=== PATIENT | male | born 1940 | race Caucasian/White ===

== ENCOUNTER 2016-07-18 21:40 | Inpatient (IN) | payer MEDICAID, MEDICARE ==
[2016-07-18] MEDS ORDERED: Sodium Chloride 0.9% 1,000 ML IV ONE ×2 (22:00→23:13)
--- NOTE | 2016-07-18 22:06 | ED Physician Chart ---
Chief Complaint/HPI - Patient Information Date Seen:: 07/18/16 Time Seen:: 21:50 Chief Complaint:: fever History of Present Illness:: patient has had fever up to 102 and cough for two days. Sputum is white. No chest pain, vomiting or diarrhea. Allergies:: Allergies Allergy/AdvReac Type Severity Reaction Status Date / Time levofloxacin [From Levaquin] Allergy Verified 06/19/16 06:29 Historian:: Patient, EMS Review:: Nurse's Note Reviewed, Transfer documents Reviewed Review of Systems - Review of Systems General/Constitutional: Fever, Weakness Skin: No skin lesions Head: No headache Eyes: No loss of vision ENT: No earache Neck: No neck pain Cardio Vascular: No chest pain Pulmonary: SOB GI: No nausea, No vomiting, No diarrhea G/U: No dysuria Musculoskeletal: No bone or joint pain Endocrine: No polyuria Psychiatric: Prior psych history Hematopoietic: No bruising Allergic/Immuno: No urticaria Neurological: No syncope Past Medical History - Past Medical History Past Medical History: HTN, PUD/GERD, Dementia, Other (hypercholesterolemia; metastatic melanoma; prostate ca) Family History: None Social History: Non Smoker, No Alcohol Surgical History: other (trach; osteomyelitis left leg; CABGS) Psychiatricy History: Other (anxiety; psychosis) Family Medical History - Family Member Father History Unknown: Yes Ethnicity: Non- Living Status: Hx Family Cancer: Yes (father) Hx Family Coronary Artery Disease: No Hx Family Congestive Heart Failure: No Hx Family Hypertension: No Hx Family Stroke: No Hx Family Diabetes: No Hx Family Seizures: No Hx Family Dementia: No Hx Family AIDS: No Hx Family HIV: No Hx Family COPD: No Hx Family Hepatitis: No Hx Family Psychiatric Problems: No Hx Family Tuberculosis: No Physical Exam - Physical Examination General/Constitutional: Well-developed, well-nourished, Alert, No distress Head: Atraumatic Eyes: Lids, conjuctiva normal, PERRL Skin: Nl inspection, No rash, No skin lesions, No ecchymosis ENMT: External ears, nose nl, Lips, teeth, gums nl Neck: No nuchal rigidity Respiratory: Nl effort/Exclusion Other Respiratory comments:: diffuse wheezing Cardio Vascular: RRR Other Cardio Vascular comments:: 3/6 scratchy holosystolic murmur GI: No tenderness/rebounding/guarding, No organomegaly : No CVA tenderness Other Extremities comments:: right lower leg swollen with 2/6 pre-tibial pitting edema Neuro/Psych: No focal deficits Labs/Radiology/EKG Results - Lab Results Results: Laboratory Results - last 24 hr 07/18/16 07/18/16 07/18/16 22:00 22:00 22:00 WBC 13.4 H RBC 4.24 Hgb 12.6 Hct 36.9 L MCV 86.9 MCH 29.7 MCHC Differential 34.2 RDW 14.1 Plt Count 301 D MPV 7.0 Band Neutrophils % 2 Neutrophils (Manual) 80 Lymphocytes 9 L Monocytes 6 Eosinophils 3 Platelet Estimate ADEQUATE D-Dimer 1110 H Sodium 137 Potassium 4.2 Chloride 105 Carbon Dioxide 26.2 Anion Gap 10.0 BUN 13 Creatinine 0.8 Est GFR ( Amer) TNP Est GFR (Non-Af Amer) TNP BUN/Creatinine Ratio 16.3 Glucose 99 Calcium 9.3 - Radiology Results Results: s/p sterniotomy; large hiatal hernia - EKG Interpretations Rhythm: NSR [place]: borderline LAD Rate: 96 Comments:: Q waves III, avF; old septal TN ED Septic Shock - . Is Septic Shock (SBP<90, OR Lactate>4 mmol\L) present?: No Reassessment (Disposition) - Reassessment Reassessment Condition:: Unchanged - Diagnosis Diagnosis:: acute febrile illness; leukocytosis; bronchitis - Patient Disposition Admitted to:: Med/Surg Spoke to:: Lobo Quiroz Admitting Medical Physician:: Lobo Quiroz Condition at Disposition:: Stable, Improved
[2016-07-18 22:19] LABS: HEMATOCRIT 36.9 % (39.0-49.0); HEMOGLOBIN 12.6 gm/dL (12.6-17.4); MEAN CELL VOLUME 86.9 fl (80-99); MEAN CORPUSCULAR HEMOGLOBIN 29.7 pg (27.0-31.0); MEAN CORPUSCULAR HGB CONC 34.2 pg (28.0-36.0); RED BLOOD COUNT 4.24 Mil/cmm (3.80-5.80); RED CELL DISTRIBUTION WIDTH 14.1 % (11.5-20.0); WHITE BLOOD COUNT 13.4 Th/cmm (4.8-10.8)
[2016-07-18 22:22] LABS: PLATELET COUNT 301 Th/cmm (150-400)
[2016-07-18 22:31] LABS: BUN - UREA NITROGEN 13 mg/dL (7-25); BUN/CREATININE RATIO 16.3; CALCIUM SERUM 9.3 mg/dL (8.6-10.3); CARBON DIOXIDE 26.2 mEq/L (21.0-31.0); CHLORIDE 105 mEq/L (98-107); CREATININE - SERUM 0.8 mg/dL (0.7-1.3); GLUCOSE 99 mg/dL (70-105); POTASSIUM SERUM 4.2 mEq/L (3.5-5.1); SODIUM SERUM 137 mEq/L (136-145)
[2016-07-18 22:44] LABS: BAND NEUTROPHILE 2 % (0-10); EOSINOPHIL 3 % (0-5); NEUTROPHILS 80 % (40-80); PLATELET ESTIMATE ADEQUATE (NORMAL); TOTAL CELLS COUNTED 100
[2016-07-18] MEDS ORDERED: Albuterol/Ipratropium Neb 3 ML AERS HHN ONE (22:58)
[2016-07-18] MEDS ORDERED: Albuterol Nebulizer 2.5mg/3mL HHN ONE (23:00)
[2016-07-18] MEDS ORDERED: Ipratropium Neb 0.5 mg/2.5 mL UD HHN ONE (23:01)
[2016-07-18] MEDS ORDERED: cefTRIAXone 1 GM in Sodium Chloride 0.9% 50 ML IV ONE (23:14)
[2016-07-18 23:17] LABS: URINE BILIRUBIN NEGATIVE (NEGATIVE); URINE BLOOD TRACE (NEGATIVE); URINE COLOR YELLOW; URINE GLUCOSE (UA) NEGATIVE (NEGATIVE); URINE KETONE NEGATIVE (NEGATIVE); URINE PH 8.5; URINE PROTEIN 30 mg/dL (NEGATIVE); URINE UROBILINOGEN 0.2 E.U./dL (0.2 - 1.0)
[2016-07-18 23:18] LABS: URINE BACTERIA MANY /hpf (NONE SEEN); URINE EPITHELIAL CELLS OCCASIONAL /lpf (FEW); URINE RBC 0-2 /hpf (0-5); URINE WBC 50-100 /hpf (0-5)
[2016-07-18] MEDS ORDERED: ARFORMOTEROL TARTRATE 15 MCG IH SCH (23:45)
[2016-07-18] MEDS ORDERED: Magnesium Hydroxide (MOM) 30 mL UDC PO PRN (23:54)
[2016-07-18] MEDS ORDERED: Fleet Enema 135 mL RC PRN (23:54)
[2016-07-18] MEDS ORDERED: Maalox 30 mL Cup PO PRN (23:56)
[2016-07-19] MEDS: D5-0.45NS 1,000 ML IV SCH ×2 (01:26→21:06)
[2016-07-19] MEDS: methylPREDNISolone SS 40 mg Vial IVP SCH ×3 (05:23→21:09)
[2016-07-19] MEDS: Albuterol Nebulizer 2.5mg/3mL HHN SCH ×4 (08:45→19:32)
[2016-07-19] MEDS: Ipratropium Neb 0.5 mg/2.5 mL UD HHN SCH ×4 (08:45→19:32)
[2016-07-19] MEDS: Budesonide 0.5 Mg/2 mL Ud HHN SCH ×2 (08:46→19:32)
--- NOTE | 2016-07-19 09:36 | Diagnostic Imaging Report ---
CHEST X-RAY: AP view INDICATION: Fever COMPARISON: 06/29/2016 FINDINGS: There is evidence of prior median sternotomy. There is elevation of the left hemidiaphragm which limits evaluation of the left lung base. Chronic lung changes are noted. No focal consolidation within the visualized portions of the lungs. Gas-filled loops of bowel are seen along the upper abdomen. Borderline cardiomegaly is noted. Degenerative changes of the spine are noted. IMPRESSION: Elevation of the left hemidiaphragm limiting evaluation of the left lung base. Otherwise no focal consolidation identified. If indicated dedicated PA and lateral views may be obtained for further assessment. Postsurgical changes Borderline cardiomegaly.
[2016-07-19] MEDS: Aspirin 81mg Chewable Tab PO SCH (09:54)
[2016-07-19] MEDS: Pantoprazole 40 mg EC Tab PO SCH ×2 (09:54→17:09)
--- NOTE | 2016-07-19 12:47 | Diagnostic Imaging Report ---
Bilateral lower extremity DVT study HISTORY: Pain COMPARISON: None Technique: Longitudinal and transverse sonographic images of the bilateral lower extremity veins were obtained with doppler analysis. FINDINGS: There is normal compressibility, augmentation and phasicity of the bilateral common femoral, superficial femoral, popliteal, and posterior tibial veins. No thrombus is visualized. IMPRESSION: No evidence of thrombus within the bilateral lower extremity veins.
--- NOTE | 2016-07-19 12:54 | Internal Medicine Prog Note ---
Internal Medicine Subjective - Subjective Service Date: 07/19/16 ([id number]) Internal Medicine Objective - Results Result Diagrams: 07/18/16 22:00 07/18/16 22:00 Recent Labs: Laboratory Last Values WBC 13.4 Th/cmm (4.8-10.8) H 07/18/16 22:00 RBC 4.24 Mil/cmm (3.80-5.80) 07/18/16 22:00 Hgb 12.6 gm/dL (12.6-17.4) 07/18/16 22:00 Hct 36.9 % (39.0-49.0) L 07/18/16 22:00 MCV 86.9 fl (80-99) 07/18/16 22:00 MCH 29.7 pg (27.0-31.0) 07/18/16 22:00 MCHC Differential 34.2 pg (28.0-36.0) 07/18/16 22:00 RDW 14.1 % (11.5-20.0) 07/18/16 22:00 Plt Count 301 Th/cmm (150-400) D 07/18/16 22:00 MPV 7.0 fl 07/18/16 22:00 Band Neutrophils % 2 % (0-10) 07/18/16 22:00 Neutrophils (Manual) 80 % (40-80) 07/18/16 22:00 Lymphocytes 9 % (20-50) L 07/18/16 22:00 Monocytes 6 % (2-10) 07/18/16 22:00 Eosinophils 3 % (0-5) 07/18/16 22:00 Platelet Estimate ADEQUATE (NORMAL) 07/18/16 22:00 D-Dimer 1110 ng/mL (100-400) H 07/18/16 22:00 Sodium 137 mEq/L (136-145) 07/18/16 22:00 Potassium 4.2 mEq/L (3.5-5.1) 07/18/16 22:00 Chloride 105 mEq/L (98-107) 07/18/16 22:00 Carbon Dioxide 26.2 mEq/L (21.0-31.0) 07/18/16 22:00 Anion Gap 10.0 (7.0-16.0) 07/18/16 22:00 BUN 13 mg/dL (7-25) 07/18/16 22:00 Creatinine 0.8 mg/dL (0.7-1.3) 07/18/16 22:00 Est GFR ( Amer) TNP 07/18/16 22:00 Est GFR (Non-Af Amer) [place] 07/18/16 22:00 BUN/Creatinine Ratio 16.3 07/18/16 22:00 Glucose 99 mg/dL (70-105) 07/18/16 22:00 Calcium 9.3 mg/dL (8.6-10.3) 07/18/16 22:00 Urine Source MIDSTREAM 07/18/16 23:00 Urine Color YELLOW 07/18/16 23:00 Urine Clarity CLOUDY (CLEAR) 07/18/16 23:00 Urine pH 8.5 07/18/16 23:00 Ur Specific [place] 1.015 (1.005-1.030) 07/18/16 23:00 Urine Protein 30 mg/dL (NEGATIVE) H 07/18/16 23:00 Urine Glucose (UA) NEGATIVE mg/dL (NEGATIVE) 07/18/16 23:00 Urine Ketones NEGATIVE mg/dL (NEGATIVE) 07/18/16 23:00 Urine Blood TRACE (NEGATIVE) 07/18/16 23:00 Urine Nitrate POSITIVE (NEGATIVE) H 07/18/16 23:00 Urine Bilirubin NEGATIVE (NEGATIVE) 07/18/16 23:00 Urine Urobilinogen 0.2 E.U./dL (0.2 - 1.0) 07/18/16 23:00 Ur Leukocyte Esterase SMALL (NEGATIVE) H 07/18/16 23:00 Urine RBC 0-2 /hpf (0-5) H 07/18/16 23:00 Urine WBC 50-100 /hpf (0-5) H 07/18/16 23:00 Ur Epithelial Cells OCCASIONAL /lpf (FEW) 07/18/16 23:00 Urine Bacteria MANY /hpf (NONE SEEN) 07/18/16 23:00 - Physical Exam Vitals and I&O: Vital Signs Temp 98.1 F 07/19/16 08:16 Pulse 66 07/19/16 12:48 Resp 18 07/19/16 12:48 BP 123/60 07/19/16 08:16 Pulse Ox 96 07/19/16 12:48 Intake & Output 07/18/16 07/19/16 07/19/16 18:59 06:59 18:59 Intake Total 300 Output Total 50 Balance 250 Weight (lbs) 161 lb Intake: Intake, IV Amount 300 Piperacillin Sodium/ 200 Tazobact 4.5 gm In Sodium Chloride 0.9% 100 ml @ 100 mls/hr IV Q6HR ON LICENSE OF [facility] Rx #:[id number] cefTRIAXone 1 gm In 50 Sodium Chloride 0.9% 50 ml @ 100 mls/hr IV X1 ONE Rx#:[id number] Output: Emesis 50 Active Medications: Current Medications Acetaminophen (Tylenol) 650 mg PO Q4HR PRN PRN Reason: Pain or Fever >101 Stop: 09/16/16 23:53 Last Admin: 07/19/16 01:27 Dose: 650 mg Al Hydrox/Mg Hydrox/Simethicone (Maalox) 30 ml PO Q6HR PRN PRN Reason: Constipation Stop: 09/16/16 23:55 Albuterol Sulfate (Albuterol 2.5mg/3ml Neb Ud) 2.5 mg HHN QIDRT ON LICENSE OF [facility] Stop: 09/17/16 07:59 Last Admin: 07/19/16 12:41 Dose: 2.5 mg Amiodarone HCl (Cordarone) 200 mg PO DAILY ON [facility] OF [facility] Stop: 09/17/16 08:59 Last Admin: 07/19/16 09:53 Dose: 200 mg Aspirin (Aspirin Chewable) 81 mg PO DAILY [facility] OF [facility] Stop: 09/17/16 08:59 Last Admin: 07/19/16 09:54 Dose: 81 mg Atorvastatin Calcium (Lipitor) 10 mg PO HS ON [facility] OF [facility] PRN Reason: Protocol Stop: 09/17/16 20:59 Bisacodyl (Dulcolax 10 Mg Supp) 10 mg RC Q72H PRN PRN Reason: Constipation Stop: 09/16/16 23:53 Budesonide (Pulmicort) 0.5 mg HHN Q12HRT ON LICENSE OF [facility] Stop: 09/17/16 08:59 Last Admin: 07/19/16 08:46 Dose: 0.5 mg Buspirone HCl (Buspar) 10 mg PO TID ON [facility] OF [facility] Stop: 09/17/16 08:59 Last Admin: 07/19/16 09:54 Dose: 10 mg Donepezil HCl (Aricept) 10 mg PO HS [facility] Stop: 09/17/16 20:59 Heparin Sodium (Porcine) (Heparin) 5,000 units SUBQ Q12HR ON [facility] OF [facility] Stop: 09/17/16 08:59 Last Admin: 07/19/16 09:58 Dose: 5,000 units Dextrose/Sodium Chloride (D5-0.45ns) 1,000 mls @ 70 mls/hr IV .[id number] ON LICENSE OF [facility] Stop: 09/16/16 23:44 Last Admin: 07/19/16 01:26 Dose: 70 mls/hr Piperacillin Sod/Tazobactam (Sod 4.5 gm/ Sodium Chloride) 100 mls @ 100 mls/hr IV Q6HR ON [facility] OF [facility] Stop: 09/17/16 00:00 Last Admin: 07/19/16 11:11 Dose: 100 mls/hr Ipratropium [place] (Atrovent Neb 0.5mg/2.5ml) 0.5 mg HHN QIDRT ON LICENSE OF [facility] Stop: 09/17/16 07:59 Last Admin: 07/19/16 12:42 Dose: 0.5 mg Magnesium Hydroxide (Milk Of Magnesia) 30 ml PO HS PRN PRN Reason: Constipation Stop: 09/16/16 23:53 Meclizine HCl (Antivert) 25 mg PO DAILY PRN PRN Reason: Nausea / Vomiting Stop: 09/16/16 23:55 Methylprednisolone Sodium Succinate (Solu-Medrol) 80 mg IVP Q8HR ON LICENSE OF [facility] Stop: 09/17/16 04:59 Last Admin: 07/19/16 12:23 Dose: 80 mg Montelukast Sodium (Singulair) 10 mg PO HS ON [facility] OF [facility] Stop: 09/17/16 20:59 Olanzapine (Zyprexa) 15 mg PO DAILY [facility] PRN Reason: Protocol Stop: 09/17/16 08:59 Last Admin: 07/19/16 09:55 Dose: 15 mg Ondansetron HCl (Zofran) 4 mg IV Q8H PRN PRN Reason: Nausea / Vomiting Stop: 09/16/16 23:55 Last Admin: 07/19/16 01:43 Dose: 4 mg Pantoprazole Sodium (Protonix) 40 mg PO BID ON [facility] OF [facility] Stop: 09/17/16 08:59 Last Admin: 07/19/16 09:54 Dose: 40 mg Sodium Phosphate (Fleet Enema) 135 ml RC Q72H PRN PRN Reason: Constipation Stop: 09/16/16 23:53 Tamsulosin HCl (Flomax) 0.4 mg PO HS [facility] Stop: 09/17/16 20:59 - Procedures Procedures: Procedures Procedure Code Date ASSISTANCE WITH RESPIRATORY VENTILATION, <24 HRS, CPAP [id number] 06/29/16 POS AIRWAY PRESSURE CPAP 14782 06/29/16
[2016-07-19 13:10] LABS: ABG SOURCE Arterial; BE(B) 1.4 mmol/L (-3.0-3.0); HCO3 27.2 mmol/L (20.0-26.0); pH 7.37 (7.35-7.45)
[2016-07-19 13:11] LABS: ALLEN TEST YES; FIO2 28
[2016-07-19] MEDS ORDERED: VTE Chemical Prophylaxis Screen/Admission MC PRN (13:12)
--- NOTE | 2016-07-19 17:45 | History & Physical ---
CHIEF COMPLAINT: Fever. HISTORY OF PRESENT ILLNESS: This is a 75-year-old male who is a resident of [facility] who is brought here to [facility] for 2-day history of productive cough and 1-day history of fever of 102. Per nursing staff at [facility], no vomiting or any diarrhea was noted. PAST MEDICAL HISTORY: Hypertension, CAD, asthma, COPD, dyslipidemia, PUD, GERD and dementia. FAMILY HISTORY: Noncontributory. SOCIAL HISTORY: The patient resides at [facility], requiring 24-hour nursing care. MEDICATIONS: Please see medication reconciliation sheet. FAMILY HISTORY: Noncontributory. REVIEW OF SYSTEMS: GENERAL: Denies any chills, but complains of weakness. CARDIOVASCULAR: Denies any chest pain. RESPIRATORY: Complaints of cough, but denies any shortness of breath. HEENT: Denies any headaches, any ear pain, eye pain or any nasal drainage or throat pain. GASTROINTESTINAL: Denies nausea, vomiting or any diarrhea. GENITOURINARY: Denies any dysuria. All other systems are reviewed by me and are negative. PHYSICAL EXAMINATION: GENERAL: The patient is in mild distress, well developed, well nourished. VITAL SIGNS: Temperature 98.1, heart rate 64, blood pressure 123/60, respirations 18, O2 96%. HEENT: Head; normocephalic, atraumatic. NECK: Supple. No mass. LUNGS: Scattered rhonchi bilaterally upon auscultation. HEART: Regular rhythm. No murmurs or gallops. SKIN: Intact, warm and dry to touch. ABDOMEN: Soft, nontender, nondistended. Positive bowel sounds in all 4 quadrants. LABORATORY DATA: WBC 13.4, H and H 12.6 and 36.9. D-dimer of 1110. Sodium 137, potassium 4.2, chloride 105, carbon dioxide 26.2, BUN of 13 and creatinine 0.8. The patient had a urinalysis done and is positive for UTI. The patient had a chest x-ray done in the ER and the impression is elevation of the left hemidiaphragm limiting evaluation of the left lung base. The patient also had a lower extremity ultrasound that was negative for any DVT. ASSESSMENT: Fever, sepsis, urinary tract infection, upper gastrointestinal bleed. PLAN: We will get patient's ABG level. The patient will be on IV fluids for hydration. The patient will be kept on IV antibiotics. CBC and BMP will be monitored. The patient will be kept on IV Solu-Medrol. We will continue to monitor the patient. JOB# [id number]
[2016-07-19] MEDS: Atorvastatin Calcium 10 MG TAB PO SCH (21:10)
[2016-07-20] MEDS: methylPREDNISolone SS 40 mg Vial IVP SCH ×2 (04:58→12:49)
[2016-07-20 07:03] LABS: HEMOGLOBIN 11.5 gm/dL (12.6-17.4); MEAN CELL VOLUME 85.6 fl (80-99); MEAN CORPUSCULAR HGB CONC 35.1 pg (28.0-36.0); MEAN PLATELET VOLUME 7.4 fl; PLATELET COUNT 252 Th/cmm (150-400); RED BLOOD COUNT 3.84 Mil/cmm (3.80-5.80); RED CELL DISTRIBUTION WIDTH 13.4 % (11.5-20.0); WHITE BLOOD COUNT 13.8 Th/cmm (4.8-10.8)
[2016-07-20 07:23] LABS: HEMATOCRIT 32.8 % (39.0-49.0)
[2016-07-20] MEDS: Albuterol Nebulizer 2.5mg/3mL HHN SCH ×4 (07:23→22:04)
[2016-07-20] MEDS: Budesonide 0.5 Mg/2 mL Ud HHN SCH ×2 (07:23→22:05)
[2016-07-20] MEDS: Ipratropium Neb 0.5 mg/2.5 mL UD HHN SCH ×3 (07:23→14:46)
[2016-07-20 07:30] LABS: ALB/GLOB RATIO 0.9 (1.0-1.8); ALKALINE PHOSPHATASE 71 U/L (34-104); ANION GAP 10.7 (7.0-16.0); BILIRUBIN,TOTAL 0.2 mg/dL (0.3-1.0); BUN - UREA NITROGEN 14 mg/dL (7-25); CALCIUM SERUM 9.4 mg/dL (8.6-10.3); CARBON DIOXIDE 24.9 mEq/L (21.0-31.0); CHLORIDE 107 mEq/L (98-107); CREATININE - SERUM 0.5 mg/dL (0.7-1.3); GLUCOSE 285 mg/dL (70-105); POTASSIUM SERUM 3.6 mEq/L (3.5-5.1); SGOT 8 U/L (13-39); SGPT/ALT 21 U/L (7-52); SODIUM SERUM 139 mEq/L (136-145)
[2016-07-20] MEDS: Aspirin 81mg Chewable Tab PO SCH (08:40)
[2016-07-20] MEDS: Pantoprazole 40 mg EC Tab PO SCH ×2 (08:40→16:17)
[2016-07-20 09:51] LABS: BAND NEUTROPHILE 15 % (0-10); NEUTROPHILS 80 % (40-80); TOTAL CELLS COUNTED 100
[2016-07-20 09:52] LABS: PLATELET ESTIMATE ADEQUATE (NORMAL); PLATELET MORPHOLOGY NORMAL (NORMAL)
[2016-07-20] MEDS: D5-0.45NS 1,000 ML IV SCH (14:25)
--- NOTE | 2016-07-20 16:47 | Internal Medicine Prog Note ---
Internal Medicine Subjective - Subjective Service Date: 07/20/16 Patient seen and examined:: with staff Patient is:: awake Per staff patient is:: no adverse event Internal Medicine Objective - Results Result Diagrams: 07/20/16 06:14 07/20/16 06:14 Recent Labs: Laboratory Last Values WBC 13.8 Th/cmm (4.8-10.8) H 07/20/16 06:14 RBC 3.84 Mil/cmm (3.80-5.80) 07/20/16 06:14 Hgb 11.5 gm/dL (12.6-17.4) L 07/20/16 06:14 Hct 32.8 % (39.0-49.0) L D 07/20/16 06:14 MCV 85.6 fl (80-99) 07/20/16 06:14 MCH 30.0 pg (27.0-31.0) 07/20/16 06:14 MCHC Differential 35.1 pg (28.0-36.0) 07/20/16 06:14 RDW 13.4 % (11.5-20.0) 07/20/16 06:14 Plt Count 252 Th/cmm (150-400) 07/20/16 06:14 MPV 7.4 fl 07/20/16 06:14 Band Neutrophils % 15 % (0-10) H 07/20/16 06:14 Neutrophils (Manual) 80 % (40-80) 07/20/16 06:14 Lymphocytes 4 % (20-50) L 07/20/16 06:14 Monocytes 1 % (2-10) L 07/20/16 06:14 Eosinophils Not Reportable 07/20/16 06:14 Platelet Estimate ADEQUATE (NORMAL) 07/20/16 06:14 Platelet Morphology NORMAL (NORMAL) 07/20/16 06:14 RBC Morph Micro Appear NORMAL (NORMAL) 07/20/16 06:14 D-Dimer 1110 ng/mL (100-400) H 07/18/16 22:00 Specimen Source Arterial 07/19/16 12:50 Sample Site Left Radial 07/19/16 12:50 pH 7.37 (7.35-7.45) 07/19/16 12:50 pCO2 47.0 mmHg (35.0-45.0) H 07/19/16 12:50 pO2 60.0 mmHg (80.0-100.0) L 07/19/16 12:50 HCO3 27.2 mmol/L (20.0-26.0) H 07/19/16 12:50 Base Excess 1.4 mmol/L (-3.0-3.0) 07/19/16 12:50 O2 Saturation 90.0 % (92.0-100.0) L 07/19/16 12:50 Praveen Test YES 07/19/16 12:50 Vent Rate NA 07/19/16 12:50 Inspired O2 28 07/19/16 12:50 Tidal Volume NA 07/19/16 12:50 PEEP NA 07/19/16 12:50 Pressure (ins/psv/peep) NA 07/19/16 12:50 Critical Value E.HARRIS 07/19/16 12:50 Sodium 139 mEq/L (136-145) 07/20/16 06:14 Potassium 3.6 mEq/L (3.5-5.1) 07/20/16 06:14 Chloride 107 mEq/L (98-107) 07/20/16 06:14 Carbon Dioxide 24.9 mEq/L (21.0-31.0) 07/20/16 06:14 Anion Gap 10.7 (7.0-16.0) 07/20/16 06:14 BUN 14 mg/dL (7-25) 07/20/16 06:14 Creatinine 0.5 mg/dL (0.7-1.3) L 07/20/16 06:14 Est GFR ( Amer) TNP 07/20/16 06:14 Est GFR (Non-Af Amer) TNP 07/20/16 06:14 BUN/Creatinine Ratio 28.0 07/20/16 06:14 Glucose 285 mg/dL (70-105) H 07/20/16 06:14 Hemoglobin A1c % 5.4 % (4.0-6.0) 07/20/16 06:14 Calcium 9.4 mg/dL (8.6-10.3) 07/20/16 06:14 Total Bilirubin 0.2 mg/dL (0.3-1.0) L 07/20/16 06:14 AST 8 U/L (13-39) L 07/20/16 06:14 ALT 21 U/L (7-52) 07/20/16 06:14 Alkaline Phosphatase 71 U/L (34-104) 07/20/16 06:14 Total Protein 5.9 gm/dL (6.0-8.3) L 07/20/16 06:14 Albumin 2.8 gm/dL (4.2-5.5) L 07/20/16 06:14 Globulin 3.1 gm/dL 07/20/16 06:14 Albumin/Globulin Ratio 0.9 (1.0-1.8) L 07/20/16 06:14 Urine Source [place] 07/18/16 23:00 Urine Color YELLOW 07/18/16 23:00 Urine Clarity CLOUDY (CLEAR) 07/18/16 23:00 Urine pH 8.5 07/18/16 23:00 Ur Specific [place] 1.015 (1.005-1.030) 07/18/16 23:00 Urine Protein 30 mg/dL (NEGATIVE) H 07/18/16 23:00 Urine Glucose (UA) NEGATIVE mg/dL (NEGATIVE) 07/18/16 23:00 Urine Ketones NEGATIVE mg/dL (NEGATIVE) 07/18/16 23:00 Urine Blood TRACE (NEGATIVE) 07/18/16 23:00 Urine Nitrate POSITIVE (NEGATIVE) H 07/18/16 23:00 Urine Bilirubin NEGATIVE (NEGATIVE) 07/18/16 23:00 Urine Urobilinogen 0.2 E.U./dL (0.2 - 1.0) 07/18/16 23:00 Ur Leukocyte Esterase SMALL (NEGATIVE) H 07/18/16 23:00 Urine RBC 0-2 /hpf (0-5) H 07/18/16 23:00 Urine WBC 50-100 /hpf (0-5) H 07/18/16 23:00 Ur Epithelial Cells OCCASIONAL /lpf (FEW) 07/18/16 23:00 Urine Bacteria MANY /hpf (NONE SEEN) 07/18/16 23:00 - Physical Exam Vitals and I&O: Vital Signs Temp 98.2 F 07/20/16 16:00 Pulse 65 07/20/16 16:00 Resp 17 07/20/16 16:00 BP 92/57 07/20/16 16:00 Pulse Ox 100 07/20/16 16:00 Intake & Output 01/07/20/16 07/20/16 18:59 06:59 18:59 Intake Total 3929 880 7990 Balance 2603 550 7435 Intake: Intake, IV Amount 0318 470 8768 D5-0.45NS 1,000 ml @ 70 1000 1000 mls/hr IV .[id number] [facility] Rx #:[id number] Piperacillin Sodium/ 200 200 Tazobact 4.5 gm In Sodium Chloride 0.9% 100 ml @ 100 mls/hr IV Q6HR [facility] Rx #:[id number] Oral 30 Other: # Voids 3 # Bowel Movements 0 Active Medications: Current Medications Acetaminophen (Tylenol) 650 mg PO Q4HR PRN PRN Reason: Pain or Fever >101 Stop: 09/16/16 23:53 Last Admin: 07/19/16 01:27 Dose: 650 mg Al Hydrox/Mg Hydrox/Simethicone (Maalox) 30 ml PO Q6HR PRN PRN Reason: Constipation Stop: 09/16/16 23:55 Albuterol Sulfate (Albuterol 2.5mg/3ml Neb Ud) 2.5 mg HHN QIDRT [facility] Stop: 09/17/16 07:59 Last Admin: 07/20/16 14:46 Dose: 2.5 mg Amiodarone HCl (Cordarone) 200 mg PO DAILY [facility] Stop: 09/17/16 08:59 Last Admin: 07/20/16 08:40 Dose: 200 mg Aspirin (Aspirin Chewable) 81 mg PO DAILY [facility] Stop: 09/17/16 08:59 Last Admin: 07/20/16 08:40 Dose: 81 mg Atorvastatin Calcium (Lipitor) 10 mg PO HS [facility] PRN Reason: Protocol Stop: 09/17/16 20:59 Last Admin: 07/19/16 21:10 Dose: 10 mg Bisacodyl (Dulcolax 10 Mg Supp) 10 mg RC Q72H PRN PRN Reason: Constipation Stop: 09/16/16 23:53 Budesonide (Pulmicort) 0.5 mg HHN Q12HRT [facility] Stop: 09/17/16 08:59 Last Admin: 07/20/16 07:23 Dose: 0.5 mg Buspirone HCl (Buspar) 10 mg PO TID [facility] Stop: 09/17/16 08:59 Last Admin: 07/20/16 13:46 Dose: 10 mg Donepezil HCl (Aricept) 10 mg PO HS [facility] Stop: 09/17/16 20:59 Last Admin: 07/19/16 21:10 Dose: 10 mg Heparin Sodium (Porcine) (Heparin) 5,000 units SUBQ Q12HR [facility] Stop: 09/17/16 08:59 Last Admin: 07/20/16 08:41 Dose: 5,000 units Dextrose/Sodium Chloride (D5-0.45ns) 1,000 mls @ 70 mls/hr IV .[id number] [facility] Stop: 09/16/16 23:44 Last Admin: 07/20/16 14:25 Dose: 70 mls/hr Piperacillin Sod/Tazobactam (Sod 4.5 gm/ Sodium Chloride) 100 mls @ 100 mls/hr IV Q6HR [facility] Stop: 09/17/16 00:00 Last Admin: 07/20/16 12:49 Dose: 100 mls/hr Ipratropium [place] (Atrovent Neb 0.5mg/2.5ml) 0.5 mg HHN QIDRT [facility] Stop: 09/17/16 07:59 Last Admin: 07/20/16 14:46 Dose: 0.5 mg Magnesium Hydroxide (Milk Of Magnesia) 30 ml PO HS PRN PRN Reason: Constipation Stop: 09/16/16 23:53 Meclizine HCl (Antivert) 25 mg PO DAILY PRN PRN Reason: Nausea / Vomiting Stop: 09/16/16 23:55 Methylprednisolone Sodium Succinate (Solu-Medrol) 80 mg IVP Q8HR [facility] Stop: 09/17/16 04:59 Last Admin: 07/20/16 12:49 Dose: 80 mg Miscellaneous (Vte Chemical Prophylaxis Screen/ Admission) 1 ea [facility] PRN PRN PRN Reason: PROTOCOL Stop: 09/17/16 13:11 Montelukast Sodium (Singulair) 10 mg PO HS [facility] Stop: 09/17/16 20:59 Last Admin: 07/19/16 21:10 Dose: 10 mg Olanzapine (Zyprexa) 15 mg PO DAILY [facility] PRN Reason: Protocol Stop: 09/17/16 08:59 Last Admin: 07/20/16 08:40 Dose: 15 mg Ondansetron HCl (Zofran) 4 mg IV Q8H PRN PRN Reason: Nausea / Vomiting Stop: 09/16/16 23:55 Last Admin: 07/19/16 01:43 Dose: 4 mg Pantoprazole Sodium (Protonix) 40 mg PO BID [facility] Stop: 09/17/16 08:59 Last Admin: 07/20/16 16:17 Dose: 40 mg Sodium Phosphate (Fleet Enema) 135 ml RC Q72H PRN PRN Reason: Constipation Stop: 09/16/16 23:53 Tamsulosin HCl (Flomax) 0.4 mg PO HS [facility] Stop: 09/17/16 20:59 Last Admin: 07/19/16 21:10 Dose: 0.4 mg General: congested HEENT: NC/AT, PERRLA Neck: Supple Lungs: ronchi Cardiovascular: RRR, Normal S1, Normal S2, without murmur Abdomen: soft non-tender - Procedures Procedures: Procedures Procedure Code Date ASSISTANCE WITH RESPIRATORY VENTILATION, <24 HRS, CPAP [id number] 06/29/16 POS AIRWAY PRESSURE CPAP 63821 06/29/16 Internal Medicine Assmt/Plan - Assessment Assessment: fever sepsis uti upper gi bleed - Plan Plan: monitor for fever ivabx iv solumedrol supplemental o2 bronchodilators
--- NOTE | 2016-07-20 21:23 | Consultation ---
REASON FOR CONSULTATION: GI bleed. HISTORY OF PRESENT ILLNESS: This consult was obtained through the courtesy of Dr. Quiroz for this 75-year-old from a retirement with history of asthma, COPD, hyperlipidemia, peptic ulcer disease, dementia, coronary artery disease, hypertension, presented to the hospital because of fever. While in the hospital, he was noted to have vomiting and then coffee-ground emesis, so GI consult was called in for further evaluation. The patient denies any abdominal pain, no more vomiting. He has good bowel movement. He has good appetite. PAST MEDICAL HISTORY: Hypertension, coronary artery disease, COPD, hyperlipidemia, and peptic ulcer disease. PAST SURGICAL HISTORY: He had multiple skin cancers. He had CABG, and he had osteomyelitis. SOCIAL HISTORY: Ex-smoker, ex-alcoholic, and IV drug abuser. FAMILY HISTORY: Noncontributory. ALLERGIES: LEVOFLOXACIN. MEDICATIONS: The patient is on Tylenol, Maalox, albuterol, Cordarone, aspirin, Lipitor, Dulcolax, Pulmicort, BuSpar, Aricept, Atrovent, milk of magnesia, Antivert, Solu-Medrol, Singulair, Zyprexa, Zofran, Protonix, and Zosyn. REVIEW OF SYSTEMS: As per history of present illness. Denies any chest pain. He is not short of breath. No abdominal pain, no diarrhea, constipation, or bleeding anymore. PHYSICAL EXAMINATION: GENERAL: The patient is awake, oriented to self and place, in mild distress. VITAL SIGNS: Blood pressure is 99/61, respiratory rate 19, and temperature is 96.1. HEAD AND NECK: Pupils are reactive to light and accommodation. Extraocular muscles are intact. Sclerae are anicteric. Conjunctivae not pale. Oral cavity, no lesion. NECK: Supple, no jugular venous distention, and no carotid bruit or lymph nodes. CHEST: Good respiratory movements. LUNGS: Showed few rhonchi. CARDIOVASCULAR: Regular rate and rhythm. No murmur or gallop. ABDOMEN: Soft, positive bowel sounds. EXTREMITIES: Lower extremities, no edema. CENTRAL NERVOUS SYSTEM: Nonfocal. LABORATORY DATA: White count 13.4, H and H of 12.6 and 36.9 with the platelets of 301,000. IMPRESSION AND PLAN: A 75-year-old with multiple medical problems now with nausea, vomiting, gastrointestinal bleed, Picture is consistent with gastritis, or Dolly-Mcgovern tears, small ulcer, all of this must be induced by retching, so at this time, the patient seems clinically better, so we will continue with conservative management. We will continue to monitor H and H and we will transfuse if needed. If bleeding continues, then esophagogastroduodenoscopy, or if there is a decrease in H and H around 11. If everything remains stable, I would continue diet and then further recommendations to follow. Also, the patient could benefit from outpatient colonoscopy depending on the situation later on. Other medical problems such as hypertension, coronary artery disease, COPD, etc., as per Dr. Quiroz. Thank you, Dr. Quiroz, for allowing me to participate in the care of the patient. If you have any further questions, please let me know. JOB# [id number] MTDD
[2016-07-21] MEDS: Atorvastatin Calcium 10 MG TAB PO SCH ×2 (00:54→21:28)
[2016-07-21 05:45] LABS: HEMOGLOBIN 10.6 gm/dL (12.6-17.4); MEAN CELL VOLUME 86.6 fl (80-99); MEAN CORPUSCULAR HEMOGLOBIN 29.6 pg (27.0-31.0); MEAN CORPUSCULAR HGB CONC 34.2 pg (28.0-36.0); MEAN PLATELET VOLUME 7.3 fl; PLATELET COUNT 253 Th/cmm (150-400); RED BLOOD COUNT 3.58 Mil/cmm (3.80-5.80); RED CELL DISTRIBUTION WIDTH 13.4 % (11.5-20.0); WHITE BLOOD COUNT 16.2 Th/cmm (4.8-10.8)
[2016-07-21 05:56] LABS: ANION GAP 4.5 (7.0-16.0); BUN - UREA NITROGEN 22 mg/dL (7-25); BUN/CREATININE RATIO 36.7; CALCIUM SERUM 9.3 mg/dL (8.6-10.3); CARBON DIOXIDE 26.1 mEq/L (21.0-31.0); CHLORIDE 112 mEq/L (98-107); CREATININE - SERUM 0.6 mg/dL (0.7-1.3); GLUCOSE 176 mg/dL (70-105); POTASSIUM SERUM 3.6 mEq/L (3.5-5.1); SODIUM SERUM 139 mEq/L (136-145)
[2016-07-21] MEDS: Ipratropium Neb 0.5 mg/2.5 mL UD HHN SCH ×4 (06:50→20:00)
[2016-07-21] MEDS: Albuterol Nebulizer 2.5mg/3mL HHN SCH ×4 (06:50→20:00)
[2016-07-21] MEDS: Budesonide 0.5 Mg/2 mL Ud HHN SCH ×2 (06:50→20:01)
[2016-07-21] MEDS: Pantoprazole 40 mg EC Tab PO SCH ×2 (08:44→16:17)
[2016-07-21] MEDS: Aspirin 81mg Chewable Tab PO SCH (08:44)
[2016-07-21 10:43] LABS: BAND NEUTROPHILE 9 % (0-10); EOSINOPHIL 1 % (0-5); NEUTROPHILS 81 % (40-80); TOTAL CELLS COUNTED 100
[2016-07-21 10:44] LABS: ANISOCYTOSIS 1+; PLATELET ESTIMATE ADEQUATE (NORMAL); PLATELET MORPHOLOGY NORMAL (NORMAL)
[2016-07-21] MEDS: methylPREDNISolone SS 40 mg Vial IVP SCH ×2 (12:45→21:27)
[2016-07-21] MEDS: D5-0.45NS 1,000 ML IV SCH (16:18)
--- NOTE | 2016-07-21 16:49 | Internal Medicine Prog Note ---
Internal Medicine Subjective - Subjective Service Date: 07/21/16 Patient seen and examined:: with staff Patient is:: awake Per staff patient is:: no adverse event Internal Medicine Objective - Results Result Diagrams: 07/21/16 05:30 07/21/16 05:30 Recent Labs: Laboratory Last Values WBC 16.2 Th/cmm (4.8-10.8) H 07/21/16 05:30 RBC 3.58 Mil/cmm (3.80-5.80) L 07/21/16 05:30 Hgb 10.6 gm/dL (12.6-17.4) L 07/21/16 05:30 Hct 31.0 % (39.0-49.0) L 07/21/16 05:30 MCV 86.6 fl (80-99) 07/21/16 05:30 MCH 29.6 pg (27.0-31.0) 07/21/16 05:30 MCHC Differential 34.2 pg (28.0-36.0) 07/21/16 05:30 RDW 13.4 % (11.5-20.0) 07/21/16 05:30 Plt Count 253 Th/cmm (150-400) 07/21/16 05:30 MPV 7.3 fl 07/21/16 05:30 Band Neutrophils % 9 % (0-10) 07/21/16 05:30 Neutrophils (Manual) 81 % (40-80) H 07/21/16 05:30 Lymphocytes 3 % (20-50) L 07/21/16 05:30 Monocytes 6 % (2-10) 07/21/16 05:30 Eosinophils 1 % (0-5) 07/21/16 05:30 Platelet Estimate ADEQUATE (NORMAL) 07/21/16 05:30 Platelet Morphology NORMAL (NORMAL) 07/21/16 05:30 Anisocytosis 1+ 07/21/16 05:30 RBC Morph Micro Appear ABNORMAL (NORMAL) 07/21/16 05:30 D-Dimer 1110 ng/mL (100-400) H 07/18/16 22:00 Specimen Source Arterial 07/19/16 12:50 Sample Site Left Radial 07/19/16 12:50 pH 7.37 (7.35-7.45) 07/19/16 12:50 pCO2 47.0 mmHg (35.0-45.0) H 07/19/16 12:50 pO2 60.0 mmHg (80.0-100.0) L 07/19/16 12:50 HCO3 27.2 mmol/L (20.0-26.0) H 07/19/16 12:50 Base Excess 1.4 mmol/L (-3.0-3.0) 07/19/16 12:50 O2 Saturation 90.0 % (92.0-100.0) L 07/19/16 12:50 Praveen Test YES 07/19/16 12:50 Vent Rate NA 07/19/16 12:50 Inspired O2 28 07/19/16 12:50 Tidal Volume NA 07/19/16 12:50 PEEP NA 07/19/16 12:50 Pressure (ins/psv/peep) NA 07/19/16 12:50 Critical Value E.HARRIS 07/19/16 12:50 Sodium 139 mEq/L (136-145) 07/21/16 05:30 Potassium 3.6 mEq/L (3.5-5.1) 07/21/16 05:30 Chloride 112 mEq/L (98-107) H 07/21/16 05:30 Carbon Dioxide 26.1 mEq/L (21.0-31.0) 07/21/16 05:30 Anion Gap 4.5 (7.0-16.0) L 07/21/16 05:30 BUN 22 mg/dL (7-25) 07/21/16 05:30 Creatinine 0.6 mg/dL (0.7-1.3) L 07/21/16 05:30 Est GFR ( Amer) [facility] 07/21/16 05:30 Est GFR (Non-Af Amer) [facility] 07/21/16 05:30 BUN/Creatinine Ratio 36.7 07/21/16 05:30 Glucose 176 mg/dL (70-105) H 07/21/16 05:30 Hemoglobin A1c % 5.4 % (4.0-6.0) 07/20/16 06:14 Calcium 9.3 mg/dL (8.6-10.3) 07/21/16 05:30 Total Bilirubin 0.2 mg/dL (0.3-1.0) L 07/20/16 06:14 AST 8 U/L (13-39) L 07/20/16 06:14 ALT 21 U/L (7-52) 07/20/16 06:14 Alkaline Phosphatase 71 U/L (34-104) 07/20/16 06:14 Total Protein 5.9 gm/dL (6.0-8.3) L 07/20/16 06:14 Albumin 2.8 gm/dL (4.2-5.5) L 07/20/16 06:14 Globulin 3.1 gm/dL 07/20/16 06:14 Albumin/Globulin Ratio 0.9 (1.0-1.8) L 07/20/16 06:14 Urine Source MIDSTREAM 07/18/16 23:00 Urine Color YELLOW 07/18/16 23:00 Urine Clarity CLOUDY (CLEAR) 07/18/16 23:00 Urine pH 8.5 07/18/16 23:00 Ur Specific [place] 1.015 (1.005-1.030) 07/18/16 23:00 Urine Protein 30 mg/dL (NEGATIVE) H 07/18/16 23:00 Urine Glucose (UA) NEGATIVE mg/dL (NEGATIVE) 07/18/16 23:00 Urine Ketones NEGATIVE mg/dL (NEGATIVE) 07/18/16 23:00 Urine Blood TRACE (NEGATIVE) 07/18/16 23:00 Urine Nitrate POSITIVE (NEGATIVE) H 07/18/16 23:00 Urine Bilirubin NEGATIVE (NEGATIVE) 07/18/16 23:00 Urine Urobilinogen 0.2 E.U./dL (0.2 - 1.0) 07/18/16 23:00 Ur Leukocyte Esterase SMALL (NEGATIVE) H 07/18/16 23:00 Urine RBC 0-2 /hpf (0-5) H 07/18/16 23:00 Urine WBC 50-100 /hpf (0-5) H 07/18/16 23:00 Ur Epithelial Cells OCCASIONAL /lpf (FEW) 07/18/16 23:00 Urine Bacteria MANY /hpf (NONE SEEN) 07/18/16 23:00 - Physical Exam Vitals and I&O: Vital Signs Temp 97.8 F 07/21/16 16:00 Pulse 66 07/21/16 16:00 Resp 17 07/21/16 16:00 BP 105/58 07/21/16 16:00 Pulse Ox 95 07/21/16 16:00 Intake & Output 07/20/16 07/21/16 07/21/16 18:59 06:59 18:59 Intake Total 1000 75 1000 Output Total 0 Balance 1000 75 1000 Intake: Intake, IV Amount 1000 1000 D5-0.45NS 1,000 ml @ 70 1000 1000 mls/hr IV .[id number] [facility] Rx #:[id number] Oral 75 Output: Stool 0 Other: # Voids 2 Active Medications: Current Medications Acetaminophen (Tylenol) 650 mg PO Q4HR PRN PRN Reason: Pain or Fever >101 Stop: 09/16/16 23:53 Last Admin: 07/19/16 01:27 Dose: 650 mg Al Hydrox/Mg Hydrox/Simethicone (Maalox) 30 ml PO Q6HR PRN PRN Reason: Constipation Stop: 09/16/16 23:55 Albuterol Sulfate (Albuterol 2.5mg/3ml Neb Ud) 2.5 mg HHN QIDRT [facility] Stop: 09/17/16 07:59 Last Admin: 07/21/16 15:06 Dose: 2.5 mg Amiodarone HCl (Cordarone) 200 mg PO DAILY [facility] Stop: 09/17/16 08:59 Last Admin: 07/21/16 08:44 Dose: 200 mg Aspirin (Aspirin Chewable) 81 mg PO DAILY [facility] Stop: 09/17/16 08:59 Last Admin: 07/21/16 08:44 Dose: 81 mg Atorvastatin Calcium (Lipitor) 10 mg PO [facility] PRN Reason: Protocol Stop: 09/17/16 20:59 Last Admin: 07/21/16 00:54 Dose: 10 mg Bisacodyl (Dulcolax 10 Mg Supp) 10 mg RC Q72H PRN PRN Reason: Constipation Stop: 09/16/16 23:53 Budesonide (Pulmicort) 0.5 mg HHN Q12HRT [facility] Stop: 09/17/16 08:59 Last Admin: 07/21/16 06:50 Dose: 0.5 mg Buspirone HCl (Buspar) 10 mg PO TID [facility] Stop: 09/17/16 08:59 Last Admin: 07/21/16 13:29 Dose: 10 mg Donepezil HCl (Aricept) 10 mg PO [facility] Stop: 09/17/16 20:59 Last Admin: 07/21/16 00:53 Dose: 10 mg Heparin Sodium (Porcine) (Heparin) 5,000 units SUBQ Q12HR [facility] Stop: 09/17/16 08:59 Last Admin: 07/21/16 08:45 Dose: 5,000 units Dextrose/Sodium Chloride (D5-0.45ns) 1,000 mls @ 70 mls/hr IV .[id number] [facility] Stop: 09/16/16 23:44 Last Admin: 07/21/16 16:18 Dose: 70 mls/hr Piperacillin Sod/Tazobactam (Sod 4.5 gm/ Sodium Chloride) 100 mls @ 100 mls/hr IV Q6HR [facility] Stop: 09/17/16 00:00 Last Admin: 07/20/16 12:49 Dose: 100 mls/hr Ipratropium [place] (Atrovent Neb 0.5mg/2.5ml) 0.5 mg HHN QIDRT [facility] Stop: 09/17/16 07:59 Last Admin: 07/21/16 15:06 Dose: 0.5 mg Magnesium Hydroxide (Milk Of Magnesia) 30 ml PO HS PRN PRN Reason: Constipation Stop: 09/16/16 23:53 Meclizine HCl (Antivert) 25 mg PO DAILY PRN PRN Reason: Nausea / Vomiting Stop: 09/16/16 23:55 Methylprednisolone Sodium Succinate (Solu-Medrol) 40 mg IVP Q8HR [facility] Stop: 09/18/16 21:44 Last Admin: 07/21/16 12:45 Dose: 40 mg Miscellaneous (Vte Chemical Prophylaxis Screen/ Admission) 1 ea [facility] PRN PRN PRN Reason: PROTOCOL Stop: 09/17/16 13:11 Montelukast Sodium (Singulair) 10 mg PO HS [facility] Stop: 09/17/16 20:59 Last Admin: 07/21/16 00:53 Dose: 10 mg Olanzapine (Zyprexa) 15 mg PO DAILY [facility] PRN Reason: Protocol Stop: 09/17/16 08:59 Last Admin: 07/21/16 08:44 Dose: 15 mg Ondansetron HCl (Zofran) 4 mg IV Q8H PRN PRN Reason: Nausea / Vomiting Stop: 09/16/16 23:55 Last Admin: 07/19/16 01:43 Dose: 4 mg Pantoprazole Sodium (Protonix) 40 mg PO BID [facility] Stop: 09/17/16 08:59 Last Admin: 07/21/16 16:17 Dose: 40 mg Sodium Phosphate (Fleet Enema) 135 ml RC Q72H PRN PRN Reason: Constipation Stop: 09/16/16 23:53 Tamsulosin HCl (Flomax) 0.4 mg PO HS [facility] Stop: 09/17/16 20:59 Last Admin: 07/21/16 00:53 Dose: 0.4 mg General: alert HEENT: NC/AT, PERRLA Lungs: congested Cardiovascular: RRR, Normal S1, Normal S2, without murmur Abdomen: soft non-tender - Procedures Procedures: Procedures Procedure Code Date ASSISTANCE WITH RESPIRATORY VENTILATION, <24 HRS, CPAP [id number] 06/29/16 POS AIRWAY PRESSURE CPAP 01132 06/29/16 Internal Medicine Assmt/Plan - Assessment Assessment: fever sepsis uti upper gi bleed - Plan Plan: monitor for fever ivabx iv solumedrol supplemental o2 bronchodilators
[2016-07-22 06:26] LABS: HEMATOCRIT 33.1 % (39.0-49.0); HEMOGLOBIN 11.4 gm/dL (12.6-17.4); MEAN CELL VOLUME 87.7 fl (80-99); MEAN CORPUSCULAR HEMOGLOBIN 30.2 pg (27.0-31.0); MEAN CORPUSCULAR HGB CONC 34.4 pg (28.0-36.0); MEAN PLATELET VOLUME 7.7 fl; PLATELET COUNT 237 Th/cmm (150-400); RED BLOOD COUNT 3.77 Mil/cmm (3.80-5.80); RED CELL DISTRIBUTION WIDTH 13.9 % (11.5-20.0); WHITE BLOOD COUNT 13.1 Th/cmm (4.8-10.8)
[2016-07-22 06:42] LABS: ANION GAP 4.8 (7.0-16.0); BUN - UREA NITROGEN 29 mg/dL (7-25); BUN/CREATININE RATIO 41.4; CARBON DIOXIDE 25.4 mEq/L (21.0-31.0); CHLORIDE 112 mEq/L (98-107); CREATININE - SERUM 0.7 mg/dL (0.7-1.3); GLUCOSE 203 mg/dL (70-105); POTASSIUM SERUM 4.2 mEq/L (3.5-5.1); SODIUM SERUM 138 mEq/L (136-145)
[2016-07-22] MEDS: Albuterol Nebulizer 2.5mg/3mL HHN SCH ×4 (07:08→19:18)
[2016-07-22] MEDS: Budesonide 0.5 Mg/2 mL Ud HHN SCH ×2 (07:08→19:18)
[2016-07-22] MEDS: Ipratropium Neb 0.5 mg/2.5 mL UD HHN SCH ×4 (07:08→19:18)
[2016-07-22 08:03] LABS: BAND NEUTROPHILE 1 % (0-10); NEUTROPHILS 93 % (40-80); TOTAL CELLS COUNTED 100
[2016-07-22 08:04] LABS: MYELOCYTE 1 %; PLATELET ESTIMATE ADEQUATE (NORMAL)
[2016-07-22 08:06] LABS: ANISOCYTOSIS 1+; EOSINOPHIL 0 % (0-5); PLATELET MORPHOLOGY NORMAL (NORMAL)
[2016-07-22] MEDS: Aspirin 81mg Chewable Tab PO SCH (08:56)
[2016-07-22] MEDS: Pantoprazole 40 mg EC Tab PO SCH ×2 (08:56→16:37)
[2016-07-22] MEDS: methylPREDNISolone SS 40 mg Vial IVP SCH ×2 (08:57→21:54)
--- NOTE | 2016-07-22 12:14 | Internal Medicine Prog Note ---
Internal Medicine Subjective - Subjective Service Date: 07/22/16 Patient seen and examined:: with staff Patient is:: awake, verbal Per staff patient is:: no adverse event Internal Medicine Objective - Results Result Diagrams: 07/22/16 05:50 07/22/16 05:50 Recent Labs: Laboratory Last Values WBC 13.1 Th/cmm (4.8-10.8) H 07/22/16 05:50 RBC 3.77 Mil/cmm (3.80-5.80) L 07/22/16 05:50 Hgb 11.4 gm/dL (12.6-17.4) L 07/22/16 05:50 Hct 33.1 % (39.0-49.0) L 07/22/16 05:50 MCV 87.7 fl (80-99) 07/22/16 05:50 MCH 30.2 pg (27.0-31.0) 07/22/16 05:50 MCHC Differential 34.4 pg (28.0-36.0) 07/22/16 05:50 RDW 13.9 % (11.5-20.0) 07/22/16 05:50 Plt Count 237 Th/cmm (150-400) 07/22/16 05:50 MPV 7.7 fl 07/22/16 05:50 Band Neutrophils % 1 % (0-10) 07/22/16 05:50 Neutrophils (Manual) 93 % (40-80) H 07/22/16 05:50 Lymphocytes 4 % (20-50) L 07/22/16 05:50 Monocytes 1 % (2-10) L 07/22/16 05:50 Eosinophils 0 % (0-5) 07/22/16 05:50 Myelocytes 1 % 07/22/16 05:50 Platelet Estimate ADEQUATE (NORMAL) 07/22/16 05:50 Platelet Morphology NORMAL (NORMAL) 07/22/16 05:50 Anisocytosis 1+ 07/22/16 05:50 RBC Morph Micro Appear ABNORMAL (NORMAL) 07/22/16 05:50 D-Dimer 1110 ng/mL (100-400) H 07/18/16 22:00 Specimen Source Arterial 07/19/16 12:50 Sample Site Left Radial 07/19/16 12:50 pH 7.37 (7.35-7.45) 07/19/16 12:50 pCO2 47.0 mmHg (35.0-45.0) H 07/19/16 12:50 pO2 60.0 mmHg (80.0-100.0) L 07/19/16 12:50 HCO3 27.2 mmol/L (20.0-26.0) H 07/19/16 12:50 Base Excess 1.4 mmol/L (-3.0-3.0) 07/19/16 12:50 O2 Saturation 90.0 % (92.0-100.0) L 07/19/16 12:50 Praveen Test YES 07/19/16 12:50 Vent Rate NA 07/19/16 12:50 Inspired O2 28 07/19/16 12:50 Tidal Volume NA 07/19/16 12:50 PEEP NA 07/19/16 12:50 Pressure (ins/psv/peep) NA 07/19/16 12:50 Critical Value E.HARRIS 07/19/16 12:50 Sodium 138 mEq/L (136-145) 07/22/16 05:50 Potassium 4.2 mEq/L (3.5-5.1) 07/22/16 05:50 Chloride 112 mEq/L (98-107) H 07/22/16 05:50 Carbon Dioxide 25.4 mEq/L (21.0-31.0) 07/22/16 05:50 Anion Gap 4.8 (7.0-16.0) L 07/22/16 05:50 BUN 29 mg/dL (7-25) H 07/22/16 05:50 Creatinine 0.7 mg/dL (0.7-1.3) 07/22/16 05:50 Est GFR ( Amer) [facility] 07/22/16 05:50 Est GFR (Non-Af Amer) [facility] 07/22/16 05:50 BUN/Creatinine Ratio 41.4 07/22/16 05:50 Glucose 203 mg/dL (70-105) H 07/22/16 05:50 Hemoglobin A1c % 5.4 % (4.0-6.0) 07/20/16 06:14 Calcium 9.0 mg/dL (8.6-10.3) 07/22/16 05:50 Total Bilirubin 0.2 mg/dL (0.3-1.0) L 07/20/16 06:14 AST 8 U/L (13-39) L 07/20/16 06:14 ALT 21 U/L (7-52) 07/20/16 06:14 Alkaline Phosphatase 71 U/L (34-104) 07/20/16 06:14 Total Protein 5.9 gm/dL (6.0-8.3) L 07/20/16 06:14 Albumin 2.8 gm/dL (4.2-5.5) L 07/20/16 06:14 Globulin 3.1 gm/dL 07/20/16 06:14 Albumin/Globulin Ratio 0.9 (1.0-1.8) L 07/20/16 06:14 Urine Source MIDSTREAM 07/18/16 23:00 Urine Color YELLOW 07/18/16 23:00 Urine Clarity CLOUDY (CLEAR) 07/18/16 23:00 Urine pH 8.5 07/18/16 23:00 Ur Specific [place] 1.015 (1.005-1.030) 07/18/16 23:00 Urine Protein 30 mg/dL (NEGATIVE) H 07/18/16 23:00 Urine Glucose (UA) NEGATIVE mg/dL (NEGATIVE) 07/18/16 23:00 Urine Ketones NEGATIVE mg/dL (NEGATIVE) 07/18/16 23:00 Urine Blood TRACE (NEGATIVE) 07/18/16 23:00 Urine Nitrate POSITIVE (NEGATIVE) H 07/18/16 23:00 Urine Bilirubin NEGATIVE (NEGATIVE) 07/18/16 23:00 Urine Urobilinogen 0.2 E.U./dL (0.2 - 1.0) 07/18/16 23:00 Ur Leukocyte Esterase SMALL (NEGATIVE) H 07/18/16 23:00 Urine RBC 0-2 /hpf (0-5) H 07/18/16 23:00 Urine WBC 50-100 /hpf (0-5) H 07/18/16 23:00 Ur Epithelial Cells OCCASIONAL /lpf (FEW) 07/18/16 23:00 Urine Bacteria MANY /hpf (NONE SEEN) 07/18/16 23:00 - Physical Exam Vitals and I&O: Vital Signs Temp 97.2 F 07/22/16 04:00 Pulse 56 07/22/16 10:57 Resp 16 01/16/17 10:57 BP 153/67 07/22/16 04:00 Pulse Ox 95 07/22/16 10:57 Intake & Output 07/21/16 07/22/16 07/22/16 18:59 06:59 18:59 Intake Total 1000 200 Balance 1000 200 Intake: Intake, IV Amount 1000 D5-0.45NS 1,000 ml @ 70 1000 mls/hr IV .[id number] [facility] Rx #:[id number] Oral 200 Other: # Voids 2 Active Medications: Current Medications Acetaminophen (Tylenol) 650 mg PO Q4HR PRN PRN Reason: Pain or Fever >101 Stop: 09/16/16 23:53 Last Admin: 07/19/16 01:27 Dose: 650 mg Al Hydrox/Mg Hydrox/Simethicone (Maalox) 30 ml PO Q6HR PRN PRN Reason: Constipation Stop: 09/16/16 23:55 Albuterol Sulfate (Albuterol 2.5mg/3ml Neb Ud) 2.5 mg HHN QIDRT [facility] Stop: 09/17/16 07:59 Last Admin: 07/22/16 10:54 Dose: 2.5 mg Amiodarone HCl (Cordarone) 200 mg PO DAILY [facility] Stop: 09/17/16 08:59 Last Admin: 07/22/16 08:56 Dose: 200 mg Aspirin (Aspirin Chewable) 81 mg PO DAILY [facility] Stop: 09/17/16 08:59 Last Admin: 07/22/16 08:56 Dose: 81 mg Atorvastatin Calcium (Lipitor) 10 mg PO HS [facility] PRN Reason: Protocol Stop: 09/17/16 20:59 Last Admin: 07/21/16 21:28 Dose: 10 mg Bisacodyl (Dulcolax 10 Mg Supp) 10 mg RC Q72H PRN PRN Reason: Constipation Stop: 09/16/16 23:53 Budesonide (Pulmicort) 0.5 mg HHN Q12HRT [facility] Stop: 09/17/16 08:59 Last Admin: 07/22/16 07:08 Dose: 0.5 mg Buspirone HCl (Buspar) 10 mg PO TID [facility] Stop: 09/17/16 08:59 Last Admin: 07/22/16 08:56 Dose: 10 mg Donepezil HCl (Aricept) 10 mg PO HS [facility] Stop: 09/17/16 20:59 Last Admin: 07/21/16 21:29 Dose: 10 mg Heparin Sodium (Porcine) (Heparin) 5,000 units SUBQ Q12HR [facility] Stop: 09/17/16 08:59 Last Admin: 07/22/16 08:58 Dose: 5,000 units Dextrose/Sodium Chloride (D5-0.45ns) 1,000 mls @ 70 mls/hr IV .[id number] [facility] Stop: 09/16/16 23:44 Last Admin: 07/21/16 16:18 Dose: 70 mls/hr Piperacillin Sod/Tazobactam (Sod 4.5 gm/ Sodium Chloride) 100 mls @ 100 mls/hr IV Q6HR [facility] Stop: 09/17/16 00:00 Last Admin: 07/22/16 12:00 Dose: 100 mls/hr Ipratropium [place] (Atrovent Neb 0.5mg/2.5ml) 0.5 mg HHN QIDRT [facility] Stop: 09/17/16 07:59 Last Admin: 07/22/16 10:54 Dose: 0.5 mg Magnesium Hydroxide (Milk Of Magnesia) 30 ml PO HS PRN PRN Reason: Constipation Stop: 09/16/16 23:53 Meclizine HCl (Antivert) 25 mg PO DAILY PRN PRN Reason: Nausea / Vomiting Stop: 09/16/16 23:55 Methylprednisolone Sodium Succinate (Solu-Medrol) 40 mg IVP Q12HR [facility] Stop: 09/20/16 08:59 Last Admin: 07/22/16 08:57 Dose: 40 mg Miscellaneous (Vte Chemical Prophylaxis Screen/ Admission) 1 ea [facility] PRN PRN PRN Reason: PROTOCOL Stop: 09/17/16 13:11 Montelukast Sodium (Singulair) 10 mg PO HS [facility] Stop: 09/17/16 20:59 Last Admin: 07/21/16 21:29 Dose: 10 mg Olanzapine (Zyprexa) 15 mg PO DAILY [facility] PRN Reason: Protocol Stop: 09/17/16 08:59 Last Admin: 07/22/16 08:56 Dose: 15 mg Ondansetron HCl (Zofran) 4 mg IV Q8H PRN PRN Reason: Nausea / Vomiting Stop: 09/16/16 23:55 Last Admin: 07/19/16 01:43 Dose: 4 mg Pantoprazole Sodium (Protonix) 40 mg PO BID [facility] Stop: 09/17/16 08:59 Last Admin: 07/22/16 08:56 Dose: 40 mg Sodium Phosphate (Fleet Enema) 135 ml RC Q72H PRN PRN Reason: Constipation Stop: 09/16/16 23:53 Tamsulosin HCl (Flomax) 0.4 mg PO HS [facility] Stop: 09/17/16 20:59 Last Admin: 07/21/16 21:28 Dose: 0.4 mg General: congested, alert HEENT: NC/AT Lungs: CTAB Cardiovascular: RRR, Normal S1, Normal S2, without murmur Abdomen: soft non-tender, positive bowel sound - Procedures Procedures: Procedures Procedure Code Date ASSISTANCE WITH RESPIRATORY VENTILATION, <24 HRS, CPAP [id number] 06/29/16 POS AIRWAY PRESSURE CPAP 74098 06/29/16 Internal Medicine Assmt/Plan - Assessment Assessment: fever sepsis uti upper gi bleed - Plan Plan: ltyasmani anderson monitor for fever ivabx iv solumedrol supplemental o2 bronchodilators
[2016-07-22] MEDS: D5-0.45NS 1,000 ML IV SCH (14:53)
[2016-07-22] MEDS: Atorvastatin Calcium 10 MG TAB PO SCH (21:53)
[2016-07-23] MEDS: D5-0.45NS 1,000 ML IV SCH (05:56)
[2016-07-23 06:17] LABS: INR 0.96 (0.5-1.4); PROTHROMBIN TIME (TEST) 9.5 SECONDS (9.5-11.5)
[2016-07-23 06:18] LABS: HEMATOCRIT 33.3 % (39.0-49.0); HEMOGLOBIN 11.4 gm/dL (12.6-17.4); MEAN CORPUSCULAR HEMOGLOBIN 29.9 pg (27.0-31.0); MEAN CORPUSCULAR HGB CONC 34.4 pg (28.0-36.0); MEAN PLATELET VOLUME 7.7 fl; PLATELET COUNT 247 Th/cmm (150-400); RED BLOOD COUNT 3.83 Mil/cmm (3.80-5.80); RED CELL DISTRIBUTION WIDTH 13.6 % (11.5-20.0)
[2016-07-23 07:14] LABS: BAND NEUTROPHILE 5 % (0-10); EOSINOPHIL 1 % (0-5); METAMYELOCYTE 1 % (0-0); NEUTROPHILS 81 % (40-80); PLATELET ESTIMATE ADEQUATE (NORMAL); PLATELET MORPHOLOGY GIANT PLATELETS SEEN (NORMAL); TOTAL CELLS COUNTED 100
[2016-07-23] MEDS: Albuterol Nebulizer 2.5mg/3mL HHN SCH ×4 (07:25→19:48)
[2016-07-23] MEDS: Ipratropium Neb 0.5 mg/2.5 mL UD HHN SCH ×4 (07:26→19:48)
[2016-07-23] MEDS: Budesonide 0.5 Mg/2 mL Ud HHN SCH ×2 (07:26→19:48)
[2016-07-23] MEDS: Pantoprazole 40 mg EC Tab PO SCH ×2 (08:25→16:46)
[2016-07-23] MEDS: methylPREDNISolone SS 40 mg Vial IVP SCH (08:59)
[2016-07-23 09:11] LABS: ANION GAP 9.1 (7.0-16.0); BUN - UREA NITROGEN 25 mg/dL (7-25); BUN/CREATININE RATIO 41.7; CALCIUM SERUM 8.8 mg/dL (8.6-10.3); CARBON DIOXIDE 26.3 mEq/L (21.0-31.0); CHLORIDE 110 mEq/L (98-107); CREATININE - SERUM 0.6 mg/dL (0.7-1.3); GLUCOSE 140 mg/dL (70-105); POTASSIUM SERUM 4.4 mEq/L (3.5-5.1); SODIUM SERUM 141 mEq/L (136-145)
[2016-07-23] MEDS ORDERED: Lactated Ringer 1,000 ML IV SCH (13:00)
--- NOTE | 2016-07-23 14:09 | Operative Report ---
INPATIENT GASTROINTESTINAL PROCEDURE PROCEDURE: EGD with biopsy. REFERRING PHYSICIAN: Dr. Quiroz. REASON FOR PROCEDURE: History of upper gastrointestinal bleed. CONSENT: Risks, benefits, alternatives, nature, indication, possible outcomes were discussed. Mentioned bleeding, infection, perforation, , disability, cardiopulmonary distress and arrest, missed lesion and cancers, need for surgery. The patient expressed understanding and provided informed consent. PREOPERATIVE DIAGNOSIS: Upper gastrointestinal bleed. POSTOPERATIVE DIAGNOSES: Esophagitis, white plaques in the esophagus. MEDICATIONS: Provided by anesthesiologist. DESCRIPTION OF PROCEDURE: The patient was placed on his left side. Upper gastroscope advanced from the mouth and second portion of duodenum. Scope brought back in stomach. Retroflexion view of fundus, cardia, lesser curvature. Scope was slowly withdrawn through the esophagus and removed. COMPLICATIONS: None. FINDINGS: 1. GE junction at 40 cm with white plaques, biopsies were taken. 2. Normal stomach. 3. Normal duodenum. RECOMMENDATIONS: 1. Follow up on biopsies. 2. Follow H and H and transfuse as needed. 3. Continue Protonix. 4. Nystatin. Thank you for allowing me to participate. Please call me if any questions. JOB# [id number]
--- NOTE | 2016-07-23 16:14 | Internal Medicine Prog Note ---
Internal Medicine Subjective - Subjective Patient seen and examined:: with staff, chart reviewed Patient is:: awake, verbal, in bed Patient Complaints of:: congestion Per staff patient is:: no adverse event, confused Internal Medicine Objective - Results Result Diagrams: 07/23/16 05:20 07/23/16 05:20 Recent Labs: Laboratory Last Values WBC 16.0 Th/cmm (4.8-10.8) H D 07/23/16 05:20 RBC 3.83 Mil/cmm (3.80-5.80) 07/23/16 05:20 Hgb 11.4 gm/dL (12.6-17.4) L 07/23/16 05:20 Hct 33.3 % (39.0-49.0) L 07/23/16 05:20 MCV 87.0 fl (80-99) 07/23/16 05:20 MCH 29.9 pg (27.0-31.0) 07/23/16 05:20 MCHC Differential 34.4 pg (28.0-36.0) 07/23/16 05:20 RDW 13.6 % (11.5-20.0) 07/23/16 05:20 Plt Count 247 Th/cmm (150-400) 07/23/16 05:20 MPV 7.7 fl 07/23/16 05:20 Band Neutrophils % 5 % (0-10) 07/23/16 05:20 Neutrophils (Manual) 81 % (40-80) H 07/23/16 05:20 Lymphocytes 8 % (20-50) L 07/23/16 05:20 Monocytes 4 % (2-10) 07/23/16 05:20 Eosinophils 1 % (0-5) 07/23/16 05:20 Metamyelocytes 1 % (0-0) H 07/23/16 05:20 Myelocytes 1 % 07/22/16 05:50 Platelet Estimate ADEQUATE (NORMAL) 07/23/16 05:20 Platelet Morphology GIANT PLATELETS SEEN (NORMAL) 07/23/16 05:20 Anisocytosis 1+ 07/22/16 05:50 RBC Morph Micro Appear NORMAL (NORMAL) 07/23/16 05:20 PT 9.5 SECONDS (9.5-11.5) 07/23/16 05:20 INR 0.96 (0.5-1.4) 07/23/16 05:20 D-Dimer 1110 ng/mL (100-400) H 07/18/16 22:00 Specimen Source Arterial 07/19/16 12:50 Sample Site Left Radial 07/19/16 12:50 pH 7.37 (7.35-7.45) 07/19/16 12:50 pCO2 47.0 mmHg (35.0-45.0) H 07/19/16 12:50 pO2 60.0 mmHg (80.0-100.0) L 07/19/16 12:50 HCO3 27.2 mmol/L (20.0-26.0) H 07/19/16 12:50 Base Excess 1.4 mmol/L (-3.0-3.0) 07/19/16 12:50 O2 Saturation 90.0 % (92.0-100.0) L 07/19/16 12:50 Praveen Test YES 07/19/16 12:50 Vent Rate NA 07/19/16 12:50 Inspired O2 28 07/19/16 12:50 Tidal Volume NA 07/19/16 12:50 PEEP NA 07/19/16 12:50 Pressure (ins/psv/peep) NA 07/19/16 12:50 Critical Value E.HARRIS 07/19/16 12:50 Sodium 141 mEq/L (136-145) 07/23/16 05:20 Potassium 4.4 mEq/L (3.5-5.1) 07/23/16 05:20 Chloride 110 mEq/L (98-107) H 07/23/16 05:20 Carbon Dioxide 26.3 mEq/L (21.0-31.0) 07/23/16 05:20 Anion Gap 9.1 (7.0-16.0) 07/23/16 05:20 BUN 25 mg/dL (7-25) 07/23/16 05:20 Creatinine 0.6 mg/dL (0.7-1.3) L 07/23/16 05:20 Est GFR ( Amer) TNP 07/23/16 05:20 Est GFR (Non-Af Amer) TNP 07/23/16 05:20 BUN/Creatinine Ratio 41.7 07/23/16 05:20 Glucose 140 mg/dL (70-105) H 07/23/16 05:20 Hemoglobin A1c % 5.4 % (4.0-6.0) 07/20/16 06:14 Calcium 8.8 mg/dL (8.6-10.3) 07/23/16 05:20 Total Bilirubin 0.2 mg/dL (0.3-1.0) L 07/20/16 06:14 AST 8 U/L (13-39) L 07/20/16 06:14 ALT 21 U/L (7-52) 07/20/16 06:14 Alkaline Phosphatase 71 U/L (34-104) 07/20/16 06:14 Total Protein 5.9 gm/dL (6.0-8.3) L 07/20/16 06:14 Albumin 2.8 gm/dL (4.2-5.5) L 07/20/16 06:14 Globulin 3.1 gm/dL 07/20/16 06:14 Albumin/Globulin Ratio 0.9 (1.0-1.8) L 07/20/16 06:14 Urine Source MIDSTREAM 07/18/16 23:00 Urine Color YELLOW 07/18/16 23:00 Urine Clarity CLOUDY (CLEAR) 07/18/16 23:00 Urine pH 8.5 07/18/16 23:00 Ur Specific [place] 1.015 (1.005-1.030) 07/18/16 23:00 Urine Protein 30 mg/dL (NEGATIVE) H 07/18/16 23:00 Urine Glucose (UA) NEGATIVE mg/dL (NEGATIVE) 07/18/16 23:00 Urine Ketones NEGATIVE mg/dL (NEGATIVE) 07/18/16 23:00 Urine Blood TRACE (NEGATIVE) 07/18/16 23:00 Urine Nitrate POSITIVE (NEGATIVE) H 07/18/16 23:00 Urine Bilirubin NEGATIVE (NEGATIVE) 07/18/16 23:00 Urine Urobilinogen 0.2 E.U./dL (0.2 - 1.0) 07/18/16 23:00 Ur Leukocyte Esterase SMALL (NEGATIVE) H 07/18/16 23:00 Urine RBC 0-2 /hpf (0-5) H 07/18/16 23:00 Urine WBC 50-100 /hpf (0-5) H 07/18/16 23:00 Ur Epithelial Cells OCCASIONAL /lpf (FEW) 07/18/16 23:00 Urine Bacteria MANY /hpf (NONE SEEN) 07/18/16 23:00 - Physical Exam Vitals and I&O: Vital Signs Temp 97.9 F 07/23/16 08:00 Pulse 54 07/23/16 14:54 Resp 20 07/23/16 14:54 BP 151/74 07/23/16 08:00 Pulse Ox 98 07/23/16 14:54 Intake & Output 07/22/16 07/23/16 07/23/16 18:59 06:59 18:59 Intake Total 1999 1200 Balance 1999 1200 Intake: Intake, IV Amount 200 1200 D5-0.45NS 1,000 ml @ 70 1000 mls/hr IV .[id number] [facility] Rx #:[id number] Piperacillin Sodium/ 200 200 Tazobact 4.5 gm In Sodium Chloride 0.9% 100 ml @ 100 mls/hr IV Q6HR [facility] Rx #:[id number] Oral 1800 Other: # Voids 2 # Bowel Movements 0 Active Medications: Current Medications Acetaminophen (Tylenol) 650 mg PO Q4HR PRN PRN Reason: Pain or Fever >101 Stop: 09/16/16 23:53 Last Admin: 07/19/16 01:27 Dose: 650 mg Al Hydrox/Mg Hydrox/Simethicone (Maalox) 30 ml PO Q6HR PRN PRN Reason: Constipation Stop: 09/16/16 23:55 Albuterol Sulfate (Albuterol 2.5mg/3ml Neb Ud) 2.5 mg HHN QIDRT [facility] Stop: 09/17/16 07:59 Last Admin: 07/23/16 14:54 Dose: 2.5 mg Amiodarone HCl (Cordarone) 200 mg PO DAILY [facility] Stop: 09/17/16 08:59 Last Admin: 07/23/16 08:23 Dose: Not Given Atorvastatin Calcium (Lipitor) 10 mg PO HS [facility] PRN Reason: Protocol Stop: 09/17/16 20:59 Last Admin: 07/22/16 21:53 Dose: 10 mg Bisacodyl (Dulcolax 10 Mg Supp) 10 mg RC Q72H PRN PRN Reason: Constipation Stop: 09/16/16 23:53 Budesonide (Pulmicort) 0.5 mg HHN Q12HRT [facility] Stop: 09/17/16 08:59 Last Admin: 07/23/16 07:26 Dose: 0.5 mg Buspirone HCl (Buspar) 10 mg PO TID [facility] Stop: 09/17/16 08:59 Last Admin: 07/23/16 15:01 Dose: 10 mg Donepezil HCl (Aricept) 10 mg PO HS [facility] Stop: 09/17/16 20:59 Last Admin: 07/22/16 21:54 Dose: 10 mg Heparin Sodium (Porcine) (Heparin) 5,000 units SUBQ Q12HR [facility] Stop: 09/17/16 08:59 Last Admin: 07/23/16 08:24 Dose: Not Given Dextrose/Sodium Chloride (D5-0.45ns) 1,000 mls @ 70 mls/hr IV .[id number] [facility] Stop: 09/16/16 23:44 Last Admin: 07/23/16 05:56 Dose: 70 mls/hr Piperacillin Sod/Tazobactam (Sod 4.5 gm/ Sodium Chloride) 100 mls @ 100 mls/hr IV Q6HR [facility] Stop: 09/17/16 00:00 Last Admin: 07/23/16 13:36 Dose: 100 mls/hr Lactated Ringer's (Lactated Ringer) 1,000 mls @ 0 mls/hr IV .Q0M [facility] PRN Reason: TKO Stop: 07/23/16 17:00 Ipratropium [place] (Atrovent Neb 0.5mg/2.5ml) 0.5 mg HHN QIDRT [facility] Stop: 09/17/16 07:59 Last Admin: 07/23/16 14:54 Dose: 0.5 mg Magnesium Hydroxide (Milk Of Magnesia) 30 ml PO HS PRN PRN Reason: Constipation Stop: 09/16/16 23:53 Meclizine HCl (Antivert) 25 mg PO DAILY PRN PRN Reason: Nausea / Vomiting Stop: 09/16/16 23:55 Miscellaneous (Vte Chemical Prophylaxis Screen/ Admission) 1 ea [facility] PRN PRN PRN Reason: PROTOCOL Stop: 09/17/16 13:11 Montelukast Sodium (Singulair) 10 mg PO HS [facility] Stop: 09/17/16 20:59 Last Admin: 07/22/16 21:55 Dose: 10 mg Nystatin (Nystatin) 100,000 units PO TID [facility] Stop: 09/21/16 13:59 Olanzapine (Zyprexa) 15 mg PO DAILY [facility] PRN Reason: Protocol Stop: 09/17/16 08:59 Last Admin: 07/23/16 08:26 Dose: Not Given Ondansetron HCl (Zofran) 4 mg IV Q8H PRN PRN Reason: Nausea / Vomiting Stop: 09/16/16 23:55 Last Admin: 07/19/16 01:43 Dose: 4 mg Ondansetron HCl (Zofran) 4 mg IV PRN PRN PRN Reason: Nausea / Vomiting Stop: 07/23/16 17:00 Pantoprazole Sodium (Protonix) 40 mg PO BID [facility] Stop: 09/17/16 08:59 Last Admin: 07/23/16 08:25 Dose: Not Given Sodium Phosphate (Fleet Enema) 135 ml RC Q72H PRN PRN Reason: Constipation Stop: 09/16/16 23:53 Tamsulosin HCl (Flomax) 0.4 mg PO HS [facility] Stop: 09/17/16 20:59 Last Admin: 07/22/16 21:55 Dose: 0.4 mg General: lethargic, demented HEENT: NC/AT, PERRLA Neck: Supple Lungs: congested, rales Cardiovascular: RRR, Normal S1, Normal S2 Abdomen: soft non-tender, thin Extremities: excoriation, contracture Neurological: no change - Procedures Procedures: Procedures Procedure Code Date ASSISTANCE WITH RESPIRATORY VENTILATION, <24 HRS, CPAP [id number] 06/29/16 POS AIRWAY PRESSURE CPAP 64151 06/29/16 Internal Medicine Assmt/Plan - Assessment Assessment: fever sepsis uti upper gi bleed - Plan Plan: cont on iv abx will dc steroid ivf cpm dw rn
--- NOTE | 2016-07-23 20:41 | Admit Criteria Form ---
Admit Criteria Forms - Admit Criteria Diagnosis: URINARY COMPLICATIONS Clinical Indications for Inpatient Care (Place 'X' for any and all applicable criteria): Ongoing inpatient care may be indicated for urinary complications with ANY ONE of the following: [X ]I. Urinary tract infection requiring inpatient care as indicated by ANY ONE of the following(8)(19)(20): [ ]a) Severe symptoms (eg, high fever, severe pain) [ ]b) Vomiting or dehydration requiring ongoing inpatient care [X ]c) IV antibiotic needs that cannot be managed at lower level of care [ ]d) Hemodynamic instability [ ]e) Obstruction of collecting system by stone or tumor [ ]II. Urinary retention requiring drainage or surgery (3)(4)(5)(17)(18) [ ]III. Renal failure (Use Renal Failure Criteria for further information.) [ ]IV. Oliguria(30) [ ]V. Post obstructive diuresis requiring close monitoring of urine output and intravenous compensation for excessive fluid losses(33) Extended stay beyond goal length of stay for primary condition may be needed until ALL of the following are present(3)(4)(5)(8): [ ]a) Renal function (creatinine) at baseline, or daily decreases in creatinine consistent with renal function return [ ]b) Voiding adequately or with urinary catheter or percutaneous suprapubic tube and management regimen in place that is performable at lower level of care. [ ]c) Urine output adequate [ ]d) Fever absent or resolving [ ]e) Infection absent or treatable at next level of care The original [employer] content created by [employer] has been revised. The portions of the content which have been revised are identified through the use of italic text or in bold, and [facility] has neither reviewed nor approved the modified material. All other unmodified content is copyright [employer] [facility] Please see references footnoted in the original [employer] [facility] edition 2016
[2016-07-23] MEDS: Atorvastatin Calcium 10 MG TAB PO SCH (21:47)
[2016-07-24] MEDS: Budesonide 0.5 Mg/2 mL Ud HHN SCH ×2 (07:33→19:09)
[2016-07-24] MEDS: Ipratropium Neb 0.5 mg/2.5 mL UD HHN SCH ×4 (07:34→19:09)
[2016-07-24] MEDS: Albuterol Nebulizer 2.5mg/3mL HHN SCH ×4 (07:34→19:09)
[2016-07-24 07:57] LABS: HEMATOCRIT 33.5 % (39.0-49.0); HEMOGLOBIN 11.4 gm/dL (12.6-17.4); MEAN CELL VOLUME 87.4 fl (80-99); MEAN CORPUSCULAR HEMOGLOBIN 29.7 pg (27.0-31.0); MEAN PLATELET VOLUME 7.6 fl; PLATELET COUNT 236 Th/cmm (150-400); RED BLOOD COUNT 3.83 Mil/cmm (3.80-5.80); RED CELL DISTRIBUTION WIDTH 13.6 % (11.5-20.0); WHITE BLOOD COUNT 15.7 Th/cmm (4.8-10.8)
[2016-07-24 08:10] LABS: ANION GAP 5.4 (7.0-16.0); BUN - UREA NITROGEN 28 mg/dL (7-25); BUN/CREATININE RATIO 46.7; CALCIUM SERUM 8.5 mg/dL (8.6-10.3); CARBON DIOXIDE 29.7 mEq/L (21.0-31.0); CHLORIDE 109 mEq/L (98-107); CREATININE - SERUM 0.6 mg/dL (0.7-1.3); GLUCOSE 87 mg/dL (70-105); POTASSIUM SERUM 4.1 mEq/L (3.5-5.1); SODIUM SERUM 140 mEq/L (136-145)
[2016-07-24] MEDS: Pantoprazole 40 mg EC Tab PO SCH ×2 (09:05→17:12)
--- NOTE | 2016-07-24 09:59 | Diagnostic Imaging Report ---
CHEST X-RAY: AP view INDICATION: Pneumonia COMPARISON: Chest x-ray 07/18/2016 FINDINGS: Developing left effusion is noted. Cardiomegaly is noted. There is elevation of the left hemidiaphragm. IMPRESSION: Developing left pleural effusion. Pneumonia of the left lung cannot be excluded.
[2016-07-24 10:26] LABS: BAND NEUTROPHILE 8 % (0-10); EOSINOPHIL 1 % (0-5); METAMYELOCYTE 3 % (0-0); NEUTROPHILS 72 % (40-80); TOTAL CELLS COUNTED 100
[2016-07-24 10:27] LABS: PLATELET ESTIMATE ADEQUATE (NORMAL); PLATELET MORPHOLOGY GIANT PLATELETS SEEN (NORMAL)
--- NOTE | 2016-07-24 12:16 | Pathology Report ---
[id number] Collection date: 07/23/16 Surgeon: Yakelin Ochoa Specimen Description: Part 1: Duodenum biopsy. Part 2: Antrum biopsy. Part 3: Esophagus biopsy. Gross Description: Part 1: Received in formalin is a single da silva soft tissue fragment measuring 0.2 cm. Totally submitted in one cassette labeled A. Part 2: Received in formalin are two da silva soft tissue fragments ranging from 0.1 and 0.2 cm in greatest dimension. Totally submitted in one cassette labeled B. Part 3: Received in formalin are two da silva soft tissue fragments ranging from 0.1 and 0.2 cm in greatest dimension. Totally submitted in one cassette labeled C. Microscopic Description: Part 1: The histologic sections show duodenal mucosa with intact intestinal villi, showing no significant abnormalities. Part 2: The histologic sections show gastric mucosa with chronic inflammation present consisting of lymphocytes and plasma cells. The Giemsa stain shows no evidence for Helicobacter pylori. Part 3: The histologic sections show esophageal squamous mucosa with chronic inflammation present consisting of lymphocytes and plasma cells. The PAS stain shows fungal organisms present with features consistent with Edita. The Alcian blue stain shows no significant abnormalities. Diagnosis: Part 1: No evidence for celiac disease/sprue (duodenal biopsy). Part 2: 1. Chronic gastritis, antrum biopsy. 2. The Giemsa stain is negative for Helicobacter pylori. Part 3: 1. 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 2. 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 Comment: These findings are discussed with Dr. Yakelin Ochoa on 07/24/16, and the report is also sent to his office. JOB# [id number] [facility]
--- NOTE | 2016-07-24 13:40 | Internal Medicine Prog Note ---
Internal Medicine Subjective - Subjective Service Date: 07/24/16 Patient seen and examined:: with staff Patient is:: awake Per staff patient is:: no adverse event Internal Medicine Objective - Results Result Diagrams: 07/24/16 07:10 07/24/16 07:10 Recent Labs: Laboratory Last Values WBC 15.7 Th/cmm (4.8-10.8) H 07/24/16 07:10 RBC 3.83 Mil/cmm (3.80-5.80) 07/24/16 07:10 Hgb 11.4 gm/dL (12.6-17.4) L 07/24/16 07:10 Hct 33.5 % (39.0-49.0) L 07/24/16 07:10 MCV 87.4 fl (80-99) 07/24/16 07:10 MCH 29.7 pg (27.0-31.0) 07/24/16 07:10 MCHC Differential 34.0 pg (28.0-36.0) 07/24/16 07:10 RDW 13.6 % (11.5-20.0) 07/24/16 07:10 Plt Count 236 Th/cmm (150-400) 07/24/16 07:10 MPV 7.6 fl 07/24/16 07:10 Band Neutrophils % 8 % (0-10) 07/24/16 07:10 Neutrophils (Manual) 72 % (40-80) 07/24/16 07:10 Lymphocytes 9 % (20-50) L 07/24/16 07:10 Monocytes 7 % (2-10) 07/24/16 07:10 Eosinophils 1 % (0-5) 07/24/16 07:10 Metamyelocytes 3 % (0-0) H 07/24/16 07:10 Myelocytes 1 % 07/22/16 05:50 Platelet Estimate ADEQUATE (NORMAL) 07/24/16 07:10 Platelet Morphology GIANT PLATELETS SEEN (NORMAL) 07/24/16 07:10 Anisocytosis 1+ 07/22/16 05:50 RBC Morph Micro Appear NORMAL (NORMAL) 07/24/16 07:10 PT 9.5 SECONDS (9.5-11.5) 07/23/16 05:20 INR 0.96 (0.5-1.4) 07/23/16 05:20 D-Dimer 1110 ng/mL (100-400) H 07/18/16 22:00 Specimen Source Arterial 07/19/16 12:50 Sample Site Left Radial 07/19/16 12:50 pH 7.37 (7.35-7.45) 07/19/16 12:50 pCO2 47.0 mmHg (35.0-45.0) H 07/19/16 12:50 pO2 60.0 mmHg (80.0-100.0) L 07/19/16 12:50 HCO3 27.2 mmol/L (20.0-26.0) H 07/19/16 12:50 Base Excess 1.4 mmol/L (-3.0-3.0) 07/19/16 12:50 O2 Saturation 90.0 % (92.0-100.0) L 07/19/16 12:50 Praveen Test YES 07/19/16 12:50 Vent Rate NA 07/19/16 12:50 Inspired O2 28 07/19/16 12:50 Tidal Volume NA 07/19/16 12:50 PEEP NA 07/19/16 12:50 Pressure (ins/psv/peep) NA 07/19/16 12:50 Critical Value E.HARRIS 07/19/16 12:50 Sodium 140 mEq/L (136-145) 07/24/16 07:10 Potassium 4.1 mEq/L (3.5-5.1) 07/24/16 07:10 Chloride 109 mEq/L (98-107) H 07/24/16 07:10 Carbon Dioxide 29.7 mEq/L (21.0-31.0) 07/24/16 07:10 Anion Gap 5.4 (7.0-16.0) L 07/24/16 07:10 BUN 28 mg/dL (7-25) H 07/24/16 07:10 Creatinine 0.6 mg/dL (0.7-1.3) L 07/24/16 07:10 Est GFR ( Amer) TNP 07/24/16 07:10 Est GFR (Non-Af Amer) TNP 07/24/16 07:10 BUN/Creatinine Ratio 46.7 07/24/16 07:10 Glucose 87 mg/dL (70-105) 07/24/16 07:10 Hemoglobin A1c % 5.4 % (4.0-6.0) 07/20/16 06:14 Calcium 8.5 mg/dL (8.6-10.3) L 07/24/16 07:10 Total Bilirubin 0.2 mg/dL (0.3-1.0) L 07/20/16 06:14 AST 8 U/L (13-39) L 07/20/16 06:14 ALT 21 U/L (7-52) 07/20/16 06:14 Alkaline Phosphatase 71 U/L (34-104) 07/20/16 06:14 Ammonia 56 umol/L (16-53) H 07/24/16 07:10 Total Protein 5.9 gm/dL (6.0-8.3) L 07/20/16 06:14 Albumin 2.8 gm/dL (4.2-5.5) L 07/20/16 06:14 Globulin 3.1 gm/dL 07/20/16 06:14 Albumin/Globulin Ratio 0.9 (1.0-1.8) L 07/20/16 06:14 Urine Source MIDSTREAM 07/18/16 23:00 Urine Color YELLOW 07/18/16 23:00 Urine Clarity CLOUDY (CLEAR) 07/18/16 23:00 Urine pH 8.5 07/18/16 23:00 Ur Specific [place] 1.015 (1.005-1.030) 07/18/16 23:00 Urine Protein 30 mg/dL (NEGATIVE) H 07/18/16 23:00 Urine Glucose (UA) NEGATIVE mg/dL (NEGATIVE) 07/18/16 23:00 Urine Ketones NEGATIVE mg/dL (NEGATIVE) 07/18/16 23:00 Urine Blood TRACE (NEGATIVE) 07/18/16 23:00 Urine Nitrate POSITIVE (NEGATIVE) H 07/18/16 23:00 Urine Bilirubin NEGATIVE (NEGATIVE) 07/18/16 23:00 Urine Urobilinogen 0.2 E.U./dL (0.2 - 1.0) 07/18/16 23:00 Ur Leukocyte Esterase SMALL (NEGATIVE) H 07/18/16 23:00 Urine RBC 0-2 /hpf (0-5) H 07/18/16 23:00 Urine WBC 50-100 /hpf (0-5) H 07/18/16 23:00 Ur Epithelial Cells OCCASIONAL /lpf (FEW) 07/18/16 23:00 Urine Bacteria MANY /hpf (NONE SEEN) 07/18/16 23:00 - Physical Exam Vitals and I&O: Vital Signs Temp 97.6 F 07/24/16 08:00 Pulse 49 07/24/16 12:28 Resp 20 07/24/16 12:28 BP 181/85 07/24/16 08:00 Pulse Ox 96 07/24/16 12:28 Intake & Output 07/23/16 07/24/16 07/24/16 18:59 06:59 18:59 Intake Total 200 950 100 Balance 200 950 100 Intake: Intake, IV Amount 200 100 100 Piperacillin Sodium/ 200 100 100 Tazobact 4.5 gm In Sodium Chloride 0.9% 100 ml @ 100 mls/hr IV Q6HR [facility] Rx #:[id number] Oral 850 Other: # Voids 3 Active Medications: Current Medications Acetaminophen (Tylenol) 650 mg PO Q4HR PRN PRN Reason: Pain or Fever >101 Stop: 09/16/16 23:53 Last Admin: 07/19/16 01:27 Dose: 650 mg Al Hydrox/Mg Hydrox/Simethicone (Maalox) 30 ml PO Q6HR PRN PRN Reason: Constipation Stop: 09/16/16 23:55 Albuterol Sulfate (Albuterol 2.5mg/3ml Neb Ud) 2.5 mg HHN QIDRT [facility] Stop: 09/17/16 07:59 Last Admin: 07/24/16 12:28 Dose: 2.5 mg Amiodarone HCl (Cordarone) 200 mg PO DAILY [facility] Stop: 09/17/16 08:59 Last Admin: 07/24/16 09:05 Dose: 200 mg Atorvastatin Calcium (Lipitor) 10 mg PO HS [facility] PRN Reason: Protocol Stop: 09/17/16 20:59 Last Admin: 07/23/16 21:47 Dose: 10 mg Bisacodyl (Dulcolax 10 Mg Supp) 10 mg RC Q72H PRN PRN Reason: Constipation Stop: 09/16/16 23:53 Budesonide (Pulmicort) 0.5 mg HHN Q12HRT [facility] Stop: 09/17/16 08:59 Last Admin: 07/24/16 07:33 Dose: 0.5 mg Buspirone HCl (Buspar) 10 mg PO TID [facility] Stop: 09/17/16 08:59 Last Admin: 07/24/16 13:18 Dose: 10 mg Donepezil HCl (Aricept) 10 mg PO HS [facility] Stop: 09/17/16 20:59 Last Admin: 07/23/16 21:48 Dose: 10 mg Heparin Sodium (Porcine) (Heparin) 5,000 units SUBQ Q12HR [facility] Stop: 09/17/16 08:59 Last Admin: 07/24/16 09:05 Dose: 5,000 units Dextrose/Sodium Chloride (D5-0.45ns) 1,000 mls @ 70 mls/hr IV .[id number] [facility] Stop: 09/16/16 23:44 Last Admin: 07/23/16 05:56 Dose: 70 mls/hr Piperacillin Sod/Tazobactam (Sod 4.5 gm/ Sodium Chloride) 100 mls @ 100 mls/hr IV Q6HR [facility] Stop: 09/17/16 00:00 Last Admin: 07/24/16 12:45 Dose: 100 mls/hr Ipratropium [place] (Atrovent Neb 0.5mg/2.5ml) 0.5 mg HHN QIDRT [facility] Stop: 09/17/16 07:59 Last Admin: 07/24/16 12:28 Dose: 0.5 mg Magnesium Hydroxide (Milk Of Magnesia) 30 ml PO HS PRN PRN Reason: Constipation Stop: 09/16/16 23:53 Meclizine HCl (Antivert) 25 mg PO DAILY PRN PRN Reason: Nausea / Vomiting Stop: 09/16/16 23:55 Miscellaneous (Vte Chemical Prophylaxis Screen/ Admission) 1 ea [facility] PRN PRN PRN Reason: PROTOCOL Stop: 09/17/16 13:11 Montelukast Sodium (Singulair) 10 mg PO HS [facility] Stop: 09/17/16 20:59 Last Admin: 07/23/16 21:49 Dose: 10 mg Nystatin (Nystatin) 100,000 units PO TID [facility] Stop: 09/21/16 13:59 Last Admin: 07/24/16 13:18 Dose: 100,000 units Olanzapine (Zyprexa) 15 mg PO DAILY [facility] PRN Reason: Protocol Stop: 09/17/16 08:59 Last Admin: 07/24/16 09:04 Dose: 15 mg Ondansetron HCl (Zofran) 4 mg IV Q8H PRN PRN Reason: Nausea / Vomiting Stop: 09/16/16 23:55 Last Admin: 07/19/16 01:43 Dose: 4 mg Pantoprazole Sodium (Protonix) 40 mg PO BID [facility] Stop: 09/17/16 08:59 Last Admin: 07/24/16 09:05 Dose: 40 mg Sodium Phosphate (Fleet Enema) 135 ml RC Q72H PRN PRN Reason: Constipation Stop: 09/16/16 23:53 Tamsulosin HCl (Flomax) 0.4 mg PO HS [facility] Stop: 09/17/16 20:59 Last Admin: 07/23/16 21:49 Dose: 0.4 mg General: alert HEENT: NC/AT, PERRLA Neck: Supple Lungs: CTAB Cardiovascular: RRR, Normal S1, Normal S2, without murmur Abdomen: soft non-tender Neurological: no change - Procedures Procedures: Procedures Procedure Code Date ASSISTANCE WITH RESPIRATORY VENTILATION, <24 HRS, CPAP [id number] 06/29/16 POS AIRWAY PRESSURE CPAP 22715 06/29/16 Internal Medicine Assmt/Plan - Assessment Assessment: fever sepsis uti upper gi bleed - Plan Plan: awaiting for bed availability for [facility] monitor for fever ivabx iv solumedrol supplemental o2 bronchodilators
[2016-07-24] MEDS ORDERED: D5-0.45NS 1,000 ML IV SCH (21:05)
[2016-07-24] MEDS: Atorvastatin Calcium 10 MG TAB PO SCH (21:35)
[2016-07-25 06:54] LABS: HEMATOCRIT 34.5 % (39.0-49.0); MEAN CORPUSCULAR HEMOGLOBIN 30.2 pg (27.0-31.0); MEAN CORPUSCULAR HGB CONC 34.8 pg (28.0-36.0); MEAN PLATELET VOLUME 7.6 fl; PLATELET COUNT 252 Th/cmm (150-400); RED BLOOD COUNT 3.96 Mil/cmm (3.80-5.80); RED CELL DISTRIBUTION WIDTH 13.7 % (11.5-20.0)
[2016-07-25 07:06] LABS: WHITE BLOOD COUNT 12.4 Th/cmm (4.8-10.8)
[2016-07-25] MEDS: Ipratropium Neb 0.5 mg/2.5 mL UD HHN SCH ×4 (08:05→20:12)
[2016-07-25] MEDS: Budesonide 0.5 Mg/2 mL Ud HHN SCH ×2 (08:05→20:12)
[2016-07-25] MEDS: Albuterol Nebulizer 2.5mg/3mL HHN SCH ×4 (08:05→20:12)
[2016-07-25 08:57] LABS: BAND NEUTROPHILE 7 % (0-10); METAMYELOCYTE 4 % (0-0); NEUTROPHILS 57 % (40-80); TOTAL CELLS COUNTED 100
[2016-07-25 08:58] LABS: PLATELET ESTIMATE ADEQUATE (NORMAL); PLATELET MORPHOLOGY NORMAL (NORMAL)
[2016-07-25] MEDS: Pantoprazole 40 mg EC Tab PO SCH ×2 (09:33→17:07)
--- NOTE | 2016-07-25 15:59 | Internal Medicine Prog Note ---
Internal Medicine Subjective - Subjective Service Date: 07/25/16 Patient seen and examined:: with staff Patient is:: awake Per staff patient is:: no adverse event Internal Medicine Objective - Results Result Diagrams: 07/25/16 06:10 07/24/16 07:10 Recent Labs: Laboratory Last Values WBC 12.4 Th/cmm (4.8-10.8) H D 07/25/16 06:10 RBC 3.96 Mil/cmm (3.80-5.80) 07/25/16 06:10 Hgb 12.0 gm/dL (12.6-17.4) L 07/25/16 06:10 Hct 34.5 % (39.0-49.0) L 07/25/16 06:10 MCV 87.0 fl (80-99) 07/25/16 06:10 MCH 30.2 pg (27.0-31.0) 07/25/16 06:10 MCHC Differential 34.8 pg (28.0-36.0) 07/25/16 06:10 RDW 13.7 % (11.5-20.0) 07/25/16 06:10 Plt Count 252 Th/cmm (150-400) 07/25/16 06:10 MPV 7.6 fl 07/25/16 06:10 Band Neutrophils % 7 % (0-10) 07/25/16 06:10 Neutrophils (Manual) 57 % (40-80) 07/25/16 06:10 Lymphocytes 17 % (20-50) L 07/25/16 06:10 Monocytes 15 % (2-10) H 07/25/16 06:10 Eosinophils Not Reportable 07/25/16 06:10 Metamyelocytes 4 % (0-0) H 07/25/16 06:10 Myelocytes 1 % 07/22/16 05:50 Platelet Estimate ADEQUATE (NORMAL) 07/25/16 06:10 Platelet Morphology NORMAL (NORMAL) 07/25/16 06:10 Anisocytosis 1+ 07/22/16 05:50 RBC Morph Micro Appear NORMAL (NORMAL) 07/25/16 06:10 PT 9.5 SECONDS (9.5-11.5) 07/23/16 05:20 INR 0.96 (0.5-1.4) 07/23/16 05:20 D-Dimer 1110 ng/mL (100-400) H 07/18/16 22:00 Specimen Source Arterial 07/19/16 12:50 Sample Site Left Radial 07/19/16 12:50 pH 7.37 (7.35-7.45) 07/19/16 12:50 pCO2 47.0 mmHg (35.0-45.0) H 07/19/16 12:50 pO2 60.0 mmHg (80.0-100.0) L 07/19/16 12:50 HCO3 27.2 mmol/L (20.0-26.0) H 07/19/16 12:50 Base Excess 1.4 mmol/L (-3.0-3.0) 07/19/16 12:50 O2 Saturation 90.0 % (92.0-100.0) L 07/19/16 12:50 Praveen Test YES 07/19/16 12:50 Vent Rate NA 07/19/16 12:50 Inspired O2 28 07/19/16 12:50 Tidal Volume NA 07/19/16 12:50 PEEP NA 07/19/16 12:50 Pressure (ins/psv/peep) NA 07/19/16 12:50 Critical Value E.HARRIS 07/19/16 12:50 Sodium 140 mEq/L (136-145) 07/24/16 07:10 Potassium 4.1 mEq/L (3.5-5.1) 07/24/16 07:10 Chloride 109 mEq/L (98-107) H 07/24/16 07:10 Carbon Dioxide 29.7 mEq/L (21.0-31.0) 07/24/16 07:10 Anion Gap 5.4 (7.0-16.0) L 07/24/16 07:10 BUN 28 mg/dL (7-25) H 07/24/16 07:10 Creatinine 0.6 mg/dL (0.7-1.3) L 07/24/16 07:10 Est GFR ( Amer) TNP 07/24/16 07:10 Est GFR (Non-Af Amer) TNP 07/24/16 07:10 BUN/Creatinine Ratio 46.7 07/24/16 07:10 Glucose 87 mg/dL (70-105) 07/24/16 07:10 Hemoglobin A1c % 5.4 % (4.0-6.0) 07/20/16 06:14 Calcium 8.5 mg/dL (8.6-10.3) L 07/24/16 07:10 Total Bilirubin 0.2 mg/dL (0.3-1.0) L 07/20/16 06:14 AST 8 U/L (13-39) L 07/20/16 06:14 ALT 21 U/L (7-52) 07/20/16 06:14 Alkaline Phosphatase 71 U/L (34-104) 07/20/16 06:14 Ammonia 56 umol/L (16-53) H 07/24/16 07:10 Total Protein 5.9 gm/dL (6.0-8.3) L 07/20/16 06:14 Albumin 2.8 gm/dL (4.2-5.5) L 07/20/16 06:14 Globulin 3.1 gm/dL 07/20/16 06:14 Albumin/Globulin Ratio 0.9 (1.0-1.8) L 07/20/16 06:14 Urine Source MIDSTREAM 07/18/16 23:00 Urine Color YELLOW 07/18/16 23:00 Urine Clarity CLOUDY (CLEAR) 07/18/16 23:00 Urine pH 8.5 07/18/16 23:00 Ur Specific [place] 1.015 (1.005-1.030) 07/18/16 23:00 Urine Protein 30 mg/dL (NEGATIVE) H 07/18/16 23:00 Urine Glucose (UA) NEGATIVE mg/dL (NEGATIVE) 07/18/16 23:00 Urine Ketones NEGATIVE mg/dL (NEGATIVE) 07/18/16 23:00 Urine Blood TRACE (NEGATIVE) 07/18/16 23:00 Urine Nitrate POSITIVE (NEGATIVE) H 07/18/16 23:00 Urine Bilirubin NEGATIVE (NEGATIVE) 07/18/16 23:00 Urine Urobilinogen 0.2 E.U./dL (0.2 - 1.0) 07/18/16 23:00 Ur Leukocyte Esterase SMALL (NEGATIVE) H 07/18/16 23:00 Urine RBC 0-2 /hpf (0-5) H 07/18/16 23:00 Urine WBC 50-100 /hpf (0-5) H 07/18/16 23:00 Ur Epithelial Cells OCCASIONAL /lpf (FEW) 07/18/16 23:00 Urine Bacteria MANY /hpf (NONE SEEN) 07/18/16 23:00 - Physical Exam Vitals and I&O: Vital Signs Temp 97.9 F 07/25/16 12:00 Pulse 59 07/25/16 13:04 Resp 20 07/25/16 13:04 BP 97/59 07/25/16 12:00 Pulse Ox 95 07/25/16 13:04 Intake & Output 07/24/16 07/25/16 07/25/16 18:59 06:59 18:59 Intake Total 300 3100 Balance 300 3100 Intake: Intake, IV Amount 300 Piperacillin Sodium/ 300 Tazobact 4.5 gm In Sodium Chloride 0.9% 100 ml @ 100 mls/hr IV Q6HR [facility] Rx #:[id number] Oral 3100 Other: # Voids 4 Active Medications: Current Medications Acetaminophen (Tylenol) 650 mg PO Q4HR PRN PRN Reason: Pain or Fever >101 Stop: 09/16/16 23:53 Last Admin: 07/19/16 01:27 Dose: 650 mg Al Hydrox/Mg Hydrox/Simethicone (Maalox) 30 ml PO Q6HR PRN PRN Reason: Constipation Stop: 09/16/16 23:55 Albuterol Sulfate (Albuterol 2.5mg/3ml Neb Ud) 2.5 mg HHN QIDRT [facility] Stop: 09/17/16 07:59 Last Admin: 07/25/16 13:04 Dose: 2.5 mg Amiodarone HCl (Cordarone) 200 mg PO DAILY [facility] Stop: 09/17/16 08:59 Last Admin: 07/25/16 09:32 Dose: Not Given Atorvastatin Calcium (Lipitor) 10 mg PO HS [facility] PRN Reason: Protocol Stop: 09/17/16 20:59 Last Admin: 07/24/16 21:35 Dose: 10 mg Bisacodyl (Dulcolax 10 Mg Supp) 10 mg RC Q72H PRN PRN Reason: Constipation Stop: 09/16/16 23:53 Budesonide (Pulmicort) 0.5 mg HHN Q12HRT [facility] Stop: 09/17/16 08:59 Last Admin: 07/25/16 08:05 Dose: 0.5 mg Buspirone HCl (Buspar) 10 mg PO TID [facility] Stop: 09/17/16 08:59 Last Admin: 07/25/16 13:43 Dose: 10 mg Donepezil HCl (Aricept) 10 mg PO HS [facility] Stop: 09/17/16 20:59 Last Admin: 07/24/16 21:35 Dose: 10 mg Heparin Sodium (Porcine) (Heparin) 5,000 units SUBQ Q12HR [facility] Stop: 09/17/16 08:59 Last Admin: 07/25/16 09:31 Dose: 5,000 units Piperacillin Sod/Tazobactam (Sod 4.5 gm/ Sodium Chloride) 100 mls @ 100 mls/hr IV Q6HR [facility] Stop: 09/17/16 00:00 Last Admin: 07/25/16 06:34 Dose: 100 mls/hr Dextrose/Sodium Chloride (D5-0.45ns) 1,000 mls @ 50 mls/hr IV .Q20H [facility] Stop: 09/22/16 21:04 Ipratropium [place] (Atrovent Neb 0.5mg/2.5ml) 0.5 mg HHN QIDRT [facility] Stop: 09/17/16 07:59 Last Admin: 07/25/16 13:04 Dose: 0.5 mg Magnesium Hydroxide (Milk Of Magnesia) 30 ml PO HS PRN PRN Reason: Constipation Stop: 09/16/16 23:53 Meclizine HCl (Antivert) 25 mg PO DAILY PRN PRN Reason: Nausea / Vomiting Stop: 09/16/16 23:55 Miscellaneous (Vte Chemical Prophylaxis Screen/ Admission) 1 ea [facility] PRN PRN PRN Reason: PROTOCOL Stop: 09/17/16 13:11 Montelukast Sodium (Singulair) 10 mg PO HS [facility] Stop: 09/17/16 20:59 Last Admin: 07/24/16 21:35 Dose: 10 mg Nystatin (Nystatin) 100,000 units PO TID [facility] Stop: 09/21/16 13:59 Last Admin: 07/25/16 13:42 Dose: 100,000 units Olanzapine (Zyprexa) 15 mg PO DAILY [facility] PRN Reason: Protocol Stop: 09/17/16 08:59 Last Admin: 07/25/16 09:32 Dose: 15 mg Ondansetron HCl (Zofran) 4 mg IV Q8H PRN PRN Reason: Nausea / Vomiting Stop: 09/16/16 23:55 Last Admin: 07/19/16 01:43 Dose: 4 mg Pantoprazole Sodium (Protonix) 40 mg PO BID [facility] Stop: 09/17/16 08:59 Last Admin: 07/25/16 09:33 Dose: 40 mg Sodium Phosphate (Fleet Enema) 135 ml RC Q72H PRN PRN Reason: Constipation Stop: 09/16/16 23:53 Tamsulosin HCl (Flomax) 0.4 mg PO HS [facility] Stop: 09/17/16 20:59 Last Admin: 07/24/16 21:35 Dose: 0.4 mg General: alert HEENT: NC/AT, PERRLA Neck: Supple Lungs: CTAB Cardiovascular: RRR, Normal S1, Normal S2, without murmur Abdomen: soft non-tender, non-distended, positive bowel sound Neurological: no change - Procedures Procedures: Procedures Procedure Code Date ASSISTANCE WITH RESPIRATORY VENTILATION, <24 HRS, CPAP [id number] 06/29/16 POS AIRWAY PRESSURE CPAP 03140 06/29/16 Internal Medicine Assmt/Plan - Assessment Assessment: fever sepsis uti upper gi bleed - Plan Plan: snf short term for ivabx venous doppler bilateral upper extremity monitor for fever ivabx iv solumedrol supplemental o2 bronchodilators
[2016-07-25] MEDS: Atorvastatin Calcium 10 MG TAB PO SCH (20:43)
[2016-07-26 05:19] LABS: HEMATOCRIT 35.7 % (39.0-49.0)
[2016-07-26 05:34] LABS: HEMOGLOBIN 11.9 gm/dL (12.6-17.4); MEAN CELL VOLUME 86.1 fl (80-99); MEAN CORPUSCULAR HEMOGLOBIN 28.7 pg (27.0-31.0); MEAN CORPUSCULAR HGB CONC 33.3 pg (28.0-36.0); MEAN PLATELET VOLUME 7.4 fl; PLATELET COUNT 234 Th/cmm (150-400); RED BLOOD COUNT 4.15 Mil/cmm (3.80-5.80); RED CELL DISTRIBUTION WIDTH 13.8 % (11.5-20.0)
[2016-07-26 05:43] LABS: ANION GAP 5.5 (7.0-16.0); BUN - UREA NITROGEN 22 mg/dL (7-25); BUN/CREATININE RATIO 27.5; CALCIUM SERUM 8.1 mg/dL (8.6-10.3); CARBON DIOXIDE 28.6 mEq/L (21.0-31.0); CHLORIDE 110 mEq/L (98-107); CREATININE - SERUM 0.8 mg/dL (0.7-1.3); GLUCOSE 137 mg/dL (70-105); POTASSIUM SERUM 4.1 mEq/L (3.5-5.1); SODIUM SERUM 140 mEq/L (136-145)
[2016-07-26] MEDS: Ipratropium Neb 0.5 mg/2.5 mL UD HHN SCH ×4 (07:26→19:41)
[2016-07-26] MEDS: Albuterol Nebulizer 2.5mg/3mL HHN SCH ×4 (07:26→19:41)
[2016-07-26] MEDS: Budesonide 0.5 Mg/2 mL Ud HHN SCH ×2 (07:26→19:41)
[2016-07-26 07:29] LABS: BAND NEUTROPHILE 8 % (0-10); METAMYELOCYTE 3 % (0-0); NEUTROPHILS 60 % (40-80); TOTAL CELLS COUNTED 100
[2016-07-26 07:30] LABS: PLATELET ESTIMATE ADEQUATE (NORMAL); PLATELET MORPHOLOGY NORMAL (NORMAL); POLYCHROMASIA 1+
[2016-07-26] MEDS: Pantoprazole 40 mg EC Tab PO SCH ×2 (09:50→16:10)
--- NOTE | 2016-07-26 12:20 | Internal Medicine Prog Note ---
Internal Medicine Subjective - Subjective Service Date: 07/26/16 Patient seen and examined:: with staff Patient is:: awake Per staff patient is:: no adverse event Internal Medicine Objective - Results Result Diagrams: 07/26/16 05:04 07/26/16 05:04 Recent Labs: Laboratory Last Values WBC 13.0 Th/cmm (4.8-10.8) H 07/26/16 05:04 RBC 4.15 Mil/cmm (3.80-5.80) 07/26/16 05:04 Hgb 11.9 gm/dL (12.6-17.4) L 07/26/16 05:04 Hct 35.7 % (39.0-49.0) L 07/26/16 05:04 MCV 86.1 fl (80-99) 07/26/16 05:04 MCH 28.7 pg (27.0-31.0) 07/26/16 05:04 MCHC Differential 33.3 pg (28.0-36.0) 07/26/16 05:04 RDW 13.8 % (11.5-20.0) 07/26/16 05:04 Plt Count 234 Th/cmm (150-400) 07/26/16 05:04 MPV 7.4 fl 07/26/16 05:04 Band Neutrophils % 8 % (0-10) 07/26/16 05:04 Neutrophils (Manual) 60 % (40-80) 07/26/16 05:04 Lymphocytes 17 % (20-50) L 07/26/16 05:04 Monocytes 10 % (2-10) 07/26/16 05:04 Eosinophils Not Reportable 07/26/16 05:04 Metamyelocytes 3 % (0-0) H 07/26/16 05:04 Myelocytes 1 % 07/22/16 05:50 Atypical Lymphocytes 2 % 07/26/16 05:04 Platelet Estimate ADEQUATE (NORMAL) 07/26/16 05:04 Platelet Morphology NORMAL (NORMAL) 07/26/16 05:04 Polychromasia 1+ 07/26/16 05:04 Anisocytosis 1+ 07/22/16 05:50 RBC Morph Micro Appear ABNORMAL (NORMAL) 07/26/16 05:04 PT 9.5 SECONDS (9.5-11.5) 07/23/16 05:20 INR 0.96 (0.5-1.4) 07/23/16 05:20 D-Dimer 1110 ng/mL (100-400) H 07/18/16 22:00 Specimen Source Arterial 07/19/16 12:50 Sample Site Left Radial 07/19/16 12:50 pH 7.37 (7.35-7.45) 07/19/16 12:50 pCO2 47.0 mmHg (35.0-45.0) H 07/19/16 12:50 pO2 60.0 mmHg (80.0-100.0) L 07/19/16 12:50 HCO3 27.2 mmol/L (20.0-26.0) H 07/19/16 12:50 Base Excess 1.4 mmol/L (-3.0-3.0) 07/19/16 12:50 O2 Saturation 90.0 % (92.0-100.0) L 07/19/16 12:50 Praveen Test YES 07/19/16 12:50 Vent Rate NA 07/19/16 12:50 Inspired O2 28 07/19/16 12:50 Tidal Volume NA 07/19/16 12:50 PEEP NA 07/19/16 12:50 Pressure (ins/psv/peep) NA 07/19/16 12:50 Critical Value E.HARRIS 07/19/16 12:50 Sodium 140 mEq/L (136-145) 07/26/16 05:04 Potassium 4.1 mEq/L (3.5-5.1) 07/26/16 05:04 Chloride 110 mEq/L (98-107) H 07/26/16 05:04 Carbon Dioxide 28.6 mEq/L (21.0-31.0) 07/26/16 05:04 Anion Gap 5.5 (7.0-16.0) L 07/26/16 05:04 BUN 22 mg/dL (7-25) 07/26/16 05:04 Creatinine 0.8 mg/dL (0.7-1.3) 07/26/16 05:04 Est GFR ( Amer) TNP 07/26/16 05:04 Est GFR (Non-Af Amer) TNP 07/26/16 05:04 BUN/Creatinine Ratio 27.5 07/26/16 05:04 Glucose 137 mg/dL (70-105) H 07/26/16 05:04 Hemoglobin A1c % 5.4 % (4.0-6.0) 07/20/16 06:14 Calcium 8.1 mg/dL (8.6-10.3) L 07/26/16 05:04 Total Bilirubin 0.2 mg/dL (0.3-1.0) L 07/20/16 06:14 AST 8 U/L (13-39) L 07/20/16 06:14 ALT 21 U/L (7-52) 07/20/16 06:14 Alkaline Phosphatase 71 U/L (34-104) 07/20/16 06:14 Ammonia 56 umol/L (16-53) H 07/24/16 07:10 Total Protein 5.9 gm/dL (6.0-8.3) L 07/20/16 06:14 Albumin 2.8 gm/dL (4.2-5.5) L 07/20/16 06:14 Globulin 3.1 gm/dL 07/20/16 06:14 Albumin/Globulin Ratio 0.9 (1.0-1.8) L 07/20/16 06:14 Urine Source MIDSTREAM 07/18/16 23:00 Urine Color YELLOW 07/18/16 23:00 Urine Clarity CLOUDY (CLEAR) 07/18/16 23:00 Urine pH 8.5 07/18/16 23:00 Ur Specific [place] 1.015 (1.005-1.030) 07/18/16 23:00 Urine Protein 30 mg/dL (NEGATIVE) H 07/18/16 23:00 Urine Glucose (UA) NEGATIVE mg/dL (NEGATIVE) 07/18/16 23:00 Urine Ketones NEGATIVE mg/dL (NEGATIVE) 07/18/16 23:00 Urine Blood TRACE (NEGATIVE) 07/18/16 23:00 Urine Nitrate POSITIVE (NEGATIVE) H 07/18/16 23:00 Urine Bilirubin NEGATIVE (NEGATIVE) 07/18/16 23:00 Urine Urobilinogen 0.2 E.U./dL (0.2 - 1.0) 07/18/16 23:00 Ur Leukocyte Esterase SMALL (NEGATIVE) H 07/18/16 23:00 Urine RBC 0-2 /hpf (0-5) H 07/18/16 23:00 Urine WBC 50-100 /hpf (0-5) H 07/18/16 23:00 Ur Epithelial Cells OCCASIONAL /lpf (FEW) 07/18/16 23:00 Urine Bacteria MANY /hpf (NONE SEEN) 07/18/16 23:00 - Physical Exam Vitals and I&O: Vital Signs Temp 97.8 F 07/26/16 12:10 Pulse 75 07/26/16 12:10 Resp 18 07/26/16 12:10 BP 101/50 07/26/16 12:10 Pulse Ox 97 07/26/16 12:10 Intake & Output 07/25/16 07/26/16 07/26/16 18:59 06:59 18:59 Intake Total 1700 Balance 1700 Intake: Oral 1700 Other: # Voids 3 # Bowel Movements 1 Active Medications: Current Medications Acetaminophen (Tylenol) 650 mg PO Q4HR PRN PRN Reason: Pain or Fever >101 Stop: 09/16/16 23:53 Last Admin: 07/19/16 01:27 Dose: 650 mg Al Hydrox/Mg Hydrox/Simethicone (Maalox) 30 ml PO Q6HR PRN PRN Reason: Constipation Stop: 09/16/16 23:55 Albuterol Sulfate (Albuterol 2.5mg/3ml Neb Ud) 2.5 mg HHN QIDRT [facility] Stop: 09/17/16 07:59 Last Admin: 07/26/16 11:55 Dose: 2.5 mg Amiodarone HCl (Cordarone) 200 mg PO DAILY [facility] Stop: 09/17/16 08:59 Last Admin: 07/26/16 09:43 Dose: 200 mg Atorvastatin Calcium (Lipitor) 10 mg PO HS [facility] PRN Reason: Protocol Stop: 09/17/16 20:59 Last Admin: 07/25/16 20:43 Dose: 10 mg Bisacodyl (Dulcolax 10 Mg Supp) 10 mg RC Q72H PRN PRN Reason: Constipation Stop: 09/16/16 23:53 Budesonide (Pulmicort) 0.5 mg HHN Q12HRT [facility] Stop: 09/17/16 08:59 Last Admin: 07/26/16 07:26 Dose: 0.5 mg Buspirone HCl (Buspar) 10 mg PO TID [facility] Stop: 09/17/16 08:59 Last Admin: 07/26/16 09:47 Dose: 10 mg Donepezil HCl (Aricept) 10 mg PO HS [facility] Stop: 09/17/16 20:59 Last Admin: 07/25/16 20:43 Dose: 10 mg Heparin Sodium (Porcine) (Heparin) 5,000 units SUBQ Q12HR [facility] Stop: 09/17/16 08:59 Last Admin: 07/26/16 09:47 Dose: 5,000 units Piperacillin Sod/Tazobactam (Sod 4.5 gm/ Sodium Chloride) 100 mls @ 100 mls/hr IV Q6HR [facility] Stop: 09/17/16 00:00 Last Admin: 07/25/16 06:34 Dose: 100 mls/hr Dextrose/Sodium Chloride (D5-0.45ns) 1,000 mls @ 50 mls/hr IV .Q20H [facility] Stop: 09/22/16 21:04 Last Admin: 07/26/16 02:48 Dose: 50 mls/hr Ipratropium [place] (Atrovent Neb 0.5mg/2.5ml) 0.5 mg HHN QIDRT [facility] Stop: 09/17/16 07:59 Last Admin: 07/26/16 11:55 Dose: 0.5 mg Magnesium Hydroxide (Milk Of Magnesia) 30 ml PO HS PRN PRN Reason: Constipation Stop: 09/16/16 23:53 Meclizine HCl (Antivert) 25 mg PO DAILY PRN PRN Reason: Nausea / Vomiting Stop: 09/16/16 23:55 Miscellaneous (Vte Chemical Prophylaxis Screen/ Admission) 1 ea [facility] PRN PRN PRN Reason: PROTOCOL Stop: 09/17/16 13:11 Montelukast Sodium (Singulair) 10 mg PO HS [facility] Stop: 09/17/16 20:59 Last Admin: 07/25/16 20:43 Dose: 10 mg Nystatin (Nystatin) 100,000 units PO TID [facility] Stop: 09/21/16 13:59 Last Admin: 07/26/16 09:47 Dose: 100,000 units Olanzapine (Zyprexa) 15 mg PO DAILY [facility] PRN Reason: Protocol Stop: 09/17/16 08:59 Last Admin: 07/26/16 09:47 Dose: 15 mg Ondansetron HCl (Zofran) 4 mg IV Q8H PRN PRN Reason: Nausea / Vomiting Stop: 09/16/16 23:55 Last Admin: 07/19/16 01:43 Dose: 4 mg Pantoprazole Sodium (Protonix) 40 mg PO BID [facility] Stop: 09/17/16 08:59 Last Admin: 07/26/16 09:50 Dose: 40 mg Sodium Phosphate (Fleet Enema) 135 ml RC Q72H PRN PRN Reason: Constipation Stop: 09/16/16 23:53 Tamsulosin HCl (Flomax) 0.4 mg PO HS [facility] Stop: 09/17/16 20:59 Last Admin: 07/25/16 20:43 Dose: 0.4 mg General: alert HEENT: NC/AT, PERRLA Neck: Supple Lungs: CTAB Cardiovascular: RRR, Normal S1, Normal S2, without murmur Abdomen: soft non-tender, non-distended, positive bowel sound Neurological: no change - Procedures Procedures: Procedures Procedure Code Date ASSISTANCE WITH RESPIRATORY VENTILATION, <24 HRS, CPAP [id number] 06/29/16 POS AIRWAY PRESSURE CPAP 95067 06/29/16 Internal Medicine Assmt/Plan - Assessment Assessment: fever sepsis uti upper gi bleed - Plan Plan: snf short term for ivabx monitor for fever ivabx iv solumedrol supplemental o2 bronchodilators
--- NOTE | 2016-07-26 12:52 | Diagnostic Imaging Report ---
Bilateral upper extremity Doppler venous ultrasound exam HISTORY: Swelling Sonographic sector images were obtained through the venous systems of both arms. Associated Doppler data was obtained. The exam demonstrates patency of the internal jugular, subclavian, axillary, brachial, basilic, and cephalic veins bilaterally. No thrombus. Normal compressibility and augmentation responses. IMPRESSION: Negative exam for thrombophlebitis
[2016-07-26] MEDS: Atorvastatin Calcium 10 MG TAB PO SCH (20:53)
--- NOTE | 2016-08-21 00:34 | Discharge Summary ---
DATE OF ADMISSION: 07/18/2016 FINAL DIAGNOSES: Fever, sepsis, urinary tract infection, upper gastrointestinal bleed. HISTORY OF PRESENT ILLNESS: A 75-year-old male resident of [facility] is brought to [facility] for a 2-day history of productive cough and 1-day history of fever of 102. PHYSICAL EXAMINATION: GENERAL: The patient is well developed, well nourished, no acute distress. VITAL SIGNS: Stable. HEENT: Normocephalic, atraumatic. NECK: Supple. No mass. LUNGS: Clear. CARDIOVASCULAR: Regular rate and rhythm. ABDOMEN: Soft, nontender, nondistended. HOSPITAL COURSE: During the hospital stay, the patient was admitted to the med/surg unit. The patient had a D-dimer of 1110. The patient also had a chest x-ray done in the ER and the impression was elevation of left hemidiaphragm limiting evaluation of the left lung base. Also, the patient had a lower extremity ultrasound negative for any DVT. IV fluids for hydration were given and also IV antibiotics and also IV Solu-Medrol and extensive bronchodilators. The patient had a consultation with Dr. Ochoa and on 07/23/2016, the patient had an EGD with biopsy and the impression was normal stomach. The patient to continue with Protonix. The patient later then stabilized and was stable for discharge. CONDITION UPON DISCHARGE: Fair. DISPOSITION: The patient is to be going to [facility] for continuation of IV therapy. JOB# [id number]
== END 2016-07-26 21:10 | DRG 871 ==
LOC: ER 21:40 → MSI 23:30
PROVIDERS: ADMIT Internal Medicine; ATTEND Internal Medicine
PROC: 0DB68ZX Excision of Stomach, Via Natural or Artificial Opening Endoscopic, Diagnostic (ICD-10-PCS; principal; 2016-07-23)
PROC: 0DB98ZX Excision of Duodenum, Via Natural or Artificial Opening Endoscopic, Diagnostic (ICD-10-PCS; 2016-07-23)
PROC: 0DB58ZX Excision of Esophagus, Via Natural or Artificial Opening Endoscopic, Diagnostic (ICD-10-PCS; 2016-07-23)
DX: A41.9 Sepsis, unspecified organism (principal); J96.20 Acute and chronic respiratory failure, unspecified whether with hypoxia or hypercapnia; E43 Unspecified severe protein-calorie malnutrition; K92.2 Gastrointestinal hemorrhage, unspecified; N39.0 Urinary tract infection, site not specified; F03.90 Unspecified dementia, unspecified severity, without behavioral disturbance, psychotic disturbance, mood disturbance, and anxiety; I10 Essential (primary) hypertension; I25.10 Atherosclerotic heart disease of native coronary artery without angina pectoris; J45.909 Unspecified asthma, uncomplicated; E78.5 Hyperlipidemia, unspecified; K27.9 Peptic ulcer, site unspecified, unspecified as acute or chronic, without hemorrhage or perforation; K21.9 Gastro-esophageal reflux disease without esophagitis; J44.9 Chronic obstructive pulmonary disease, unspecified; K29.70 Gastritis, unspecified, without bleeding; F41.9 Anxiety disorder, unspecified; K20.9 Esophagitis, unspecified; K22.9 Disease of esophagus, unspecified; F29 Unspecified psychosis not due to a substance or known physiological condition; Z80.9 Family history of malignant neoplasm, unspecified; Z87.891 Personal history of nicotine dependence; Z68.24 Body mass index [BMI] 24.0-24.9, adult; Z88.1 Allergy status to other antibiotic agents; Z95.1 Presence of aortocoronary bypass graft
CPT/HCPCS: 36415-UA; 36600-90; 71010-TC; 80048-TC; 80053-TC; 81001-TC; 82140-TC; 82803-TC; 83036-90; 85007-TC; 85027-TC; 85379-TC; 85610-TC; 87086-90; 88305-90; 88312-90; 88313-90; 90779; 93005; 93970-TC-50; 94640; 94760; J0696; J1644; J2405; J2543; J2704; J2920; J7030; J7613; Z7610

== ENCOUNTER 2016-08-31 07:20 | Inpatient (IN) | payer MEDICARE, MEDICAID ==
--- NOTE | 2016-08-31 07:45 | ED Physician Chart ---
Chief Complaint/HPI - Patient Information Date Seen:: 08/31/16 Time Seen:: 07:34 Chief Complaint:: sob History of Present Illness:: THIS IS A 75 YO MALE COPD PATIENT SENT FROM THE [facility]ENIOR LIV[facility] BECAUSE HE BECAME SHORT OF BREATH. THE SOB WAS ASSOCIATED WITH WHEEZING AND COUGHING. HE HAS GERD , DEMENTIA, ANEMIA, HYPERLIPIDEMIA,HYPERTENSION AND PROSTATE DISEASE. THE PATIENT HAS NOT HAD FEVER. Allergies:: Allergies Allergy/AdvReac Type Severity Reaction Status Date / Time levofloxacin [From Levaquin] Allergy Verified 06/19/16 06:29 Vitals:: Vital Signs - 8 hr 08/31/16 07:33 Temp 98.4 F HR 123 RR 22 BP 180/90 O2 Sat % 92 Historian:: EMS, Medical Records Review:: Nurse's Note Reviewed Review of Systems - Review of Systems General/Constitutional: Other (THIS PATIENT IS UNABLE TO GIVE A REVIEW OF SYSTEMS AT THIS TIME.) Skin: No skin lesions, No rash, No bruising Head: No headache, No light-headedness Eyes: No loss of vision, No pain, No diplopia ENT: No earache, No nasal drainage, No sore throat, No tinnitus Neck: No neck pain, No swelling, No thyromegaly, No stiffness, No mass noted Cardio Vascular: No chest pain, No palpitations, No PND, No orthopnea, No edema Pulmonary: No SOB, No cough, No sputum, No wheezing GI: No nausea, No vomiting, No diarrhea, No pain, No melena, No hematochezia, No constipation, No hematemesis G/U: No dysuria, No frequency, No hematuria Musculoskeletal: No bone or joint pain, No back pain, No muscle pain Endocrine: No polyuria, No polydipsia Psychiatric: No prior psych history, No depression, No anxiety, No suicidal ideation Hematopoietic: No bruising, No lymphadenopathy Allergic/Immuno: No urticaria, No angioedema Neurological: No syncope, No focal symptoms, No weakness, No paresthesia, No headache, No seizure, No dizziness, No confusion, No vertigo Past Medical History - Past Medical History Obtainable: Yes Past Medical History: HTN, CAD, Asthma/COPD, Dyslipidemia, PUD/GERD, Dementia Family History: None Social History: Non Smoker, No Alcohol, No Drug Use Surgical History: CABG Family Medical History - Family Member Father History Unknown: Yes Ethnicity: Non- Living Status: Hx Family Cancer: Yes (father) Hx Family Coronary Artery Disease: No Hx Family Congestive Heart Failure: No Hx Family Hypertension: No Hx Family Stroke: No Hx Family Diabetes: No Hx Family Seizures: No Hx Family Dementia: No Hx Family AIDS: No Hx Family HIV: No Hx Family COPD: No Hx Family Hepatitis: No Hx Family Psychiatric Problems: No Hx Family Tuberculosis: No Physical Exam - Physical Examination General/Constitutional: Awake, Well-developed, well-nourished, Alert, No distress, GCS 15, Non-toxic appearing, Ambulatory Head: Atraumatic Eyes: Lids, conjuctiva normal, PERRL, EOMI Skin: Nl inspection, No rash, No skin lesions, No ecchymosis, Well hydrated, No lymphadenopathy ENMT: External ears, nose nl, Nasal exam nl, Lips, teeth, gums nl Neck: Nontender, Full ROM w/o pain, No JVD, No nuchal rigidity, No bruit, No mass, No stridor Other Respiratory comments:: THERE ARE BILATERAL DIFFUSE RHONCHI HEARD WITH DECREASE EXCURSION OF THE DIAPHARM . Cardio Vascular: RRR, No murmur, gallop, rubs, NL S1 S2 GI: No tenderness/rebounding/guarding, No organomegaly, No hernia, Normal BS's, Nondistended, No mass/bruits, No McBurney tenderness : No CVA tenderness Extremities: No tenderness or effusion, Full ROM, normal strength in all extremities, No edema, Normal digits & nails Neuro/Psych: Alert/oriented, DTR's symmetric, Normal sensory exam, Normal motor strength, Judgement/insight normal, Mood normal, Normal gait, No focal deficits Misc: normal gait, Normal back, No paraspinal tenderness ED Septic Shock - . Is Septic Shock (SBP<90, OR Lactate>4 mmol\L) present?: No - <6hrs of presentation: Vital Signs: Vital Signs - 8 hr 08/31/16 07:33 Temp 98.4 F HR 123 RR 22 BP 180/90 O2 Sat % 92 Reassessment (Disposition) - Reassessment Reassessment Condition:: Improved - Patient Disposition Discussion with Medical Provider:: THE PATIENT WILL BE CARED FOR BY DR. CARPIO STARTING AT 0800.
[2016-08-31 07:50] LABS: BE(B) 2.4 mmol/L (-3.0-3.0); HCO3 27.2 mmol/L (20.0-26.0); pH 7.42 (7.35-7.45)
[2016-08-31 07:51] LABS: ABG SOURCE Arterial; ALLEN TEST YES; CRITICAL VALUES REPORTED BY SH; FIO2 21
[2016-08-31] MEDS ORDERED: Ipratropium Neb 0.5 mg/2.5 mL UD HHN STA (08:27)
[2016-08-31 08:34] LABS: HEMATOCRIT 36.5 % (39.0-49.0); HEMOGLOBIN 12.6 gm/dL (12.6-17.4); MEAN CELL VOLUME 86.5 fl (80-99); MEAN CORPUSCULAR HEMOGLOBIN 29.7 pg (27.0-31.0); MEAN CORPUSCULAR HGB CONC 34.4 pg (28.0-36.0); MEAN PLATELET VOLUME 7.3 fl; RED BLOOD COUNT 4.22 Mil/cmm (3.80-5.80); RED CELL DISTRIBUTION WIDTH 14.1 % (11.5-20.0)
[2016-08-31 08:41] LABS: INR 0.99 (0.5-1.4); PLATELET COUNT 353 Th/cmm (150-400); PROTHROMBIN TIME (TEST) 9.8 SECONDS (9.5-11.5); WHITE BLOOD COUNT 15.7 Th/cmm (4.8-10.8)
[2016-08-31 08:46] LABS: ALB/GLOB RATIO 1.1 (1.0-1.8); ALKALINE PHOSPHATASE 77 U/L (34-104); ANION GAP 9.5 (7.0-16.0); BILIRUBIN,TOTAL 0.5 mg/dL (0.3-1.0); BUN - UREA NITROGEN 13 mg/dL (7-25); BUN/CREATININE RATIO 18.6; CALCIUM SERUM 9.3 mg/dL (8.6-10.3); CARBON DIOXIDE 25.7 mEq/L (21.0-31.0); CHLORIDE 107 mEq/L (98-107); CREATININE - SERUM 0.7 mg/dL (0.7-1.3); GLUCOSE 105 mg/dL (70-105); POTASSIUM SERUM 4.2 mEq/L (3.5-5.1); SGOT 13 U/L (13-39); SGPT/ALT 14 U/L (7-52); SODIUM SERUM 138 mEq/L (136-145)
[2016-08-31] MEDS ORDERED: Albuterol Nebulizer 2.5mg/3mL HHN STA (09:13)
[2016-08-31] MEDS ORDERED: Albuterol Nebulizer 2.5mg/3mL HHN ONE ×2 (09:15→11:59)
[2016-08-31] MEDS ORDERED: Ipratropium Neb 0.5 mg/2.5 mL UD HHN ONE ×2 (09:15→12:00)
[2016-08-31] MEDS ORDERED: Fleet Enema 135 mL RC PRN (09:32)
[2016-08-31] MEDS ORDERED: Magnesium Hydroxide (MOM) 30 mL UDC PO PRN (09:32)
[2016-08-31] MEDS ORDERED: guaiFENesin 200 MG/10 ML UDC PO PRN (09:35)
[2016-08-31] MEDS ORDERED: ARFORMOTEROL TARTRATE 15 MCG IH SCH (09:45)
[2016-08-31 09:48] LABS: BAND NEUTROPHILE 3 % (0-10); NEUTROPHILS 90 % (40-80); TOTAL CELLS COUNTED 100
[2016-08-31 09:49] LABS: PLATELET ESTIMATE ADEQUATE (NORMAL); PLATELET MORPHOLOGY NORMAL (NORMAL)
[2016-08-31] MEDS ORDERED: Budesonide 0.5 Mg/2 mL Ud HHN ONE (10:01)
[2016-08-31] MEDS: Budesonide 0.5 Mg/2 mL Ud HHN SCH ×2 (10:04→19:45)
--- NOTE | 2016-08-31 10:22 | Diagnostic Imaging Report ---
History: Dyspnea Comparison:[07/24/2016] Findings:[Heart size enlarged. There is consolidation and effusion in the left lung base.] Impression:[Compared to previous exam slight decrease in left pleural effusion with residual.]
--- NOTE | 2016-08-31 11:10 | Internal Medicine Prog Note ---
Internal Medicine Subjective - Subjective Service Date: 08/31/16 ([facility] [id number]) Internal Medicine Objective - Results Result Diagrams: 08/31/16 08:20 08/31/16 08:20 Recent Labs: Laboratory Last Values WBC 15.7 Th/cmm (4.8-10.8) H D 08/31/16 08:20 RBC 4.22 Mil/cmm (3.80-5.80) 08/31/16 08:20 Hgb 12.6 gm/dL (12.6-17.4) 08/31/16 08:20 Hct 36.5 % (39.0-49.0) L 08/31/16 08:20 MCV 86.5 fl (80-99) 08/31/16 08:20 MCH 29.7 pg (27.0-31.0) 08/31/16 08:20 MCHC Differential 34.4 pg (28.0-36.0) 08/31/16 08:20 RDW 14.1 % (11.5-20.0) 08/31/16 08:20 Plt Count 353 Th/cmm (150-400) D 08/31/16 08:20 MPV 7.3 fl 08/31/16 08:20 Band Neutrophils % 3 % (0-10) 08/31/16 08:20 Neutrophils (Manual) 90 % (40-80) H 08/31/16 08:20 Lymphocytes 3 % (20-50) L 08/31/16 08:20 Monocytes 4 % (2-10) 08/31/16 08:20 Platelet Estimate ADEQUATE (NORMAL) 08/31/16 08:20 Platelet Morphology NORMAL (NORMAL) 08/31/16 08:20 RBC Morph Micro Appear NORMAL (NORMAL) 08/31/16 08:20 PT 9.8 SECONDS (9.5-11.5) 08/31/16 08:20 INR 0.99 (0.5-1.4) 08/31/16 08:20 Specimen Source Arterial 08/31/16 07:36 Sample Site Right Radial 08/31/16 07:36 pH 7.42 (7.35-7.45) 08/31/16 07:36 pCO2 42.0 mmHg (35.0-45.0) 08/31/16 07:36 pO2 53.0 mmHg (80.0-100.0) L 08/31/16 07:36 HCO3 27.2 mmol/L (20.0-26.0) H 08/31/16 07:36 Base Excess 2.4 mmol/L (-3.0-3.0) 08/31/16 07:36 O2 Saturation 88.0 % (92.0-100.0) L 08/31/16 07:36 Praveen Test YES 08/31/16 07:36 Vent Rate NA 08/31/16 07:36 Inspired O2 21 08/31/16 07:36 Tidal Volume NA 08/31/16 07:36 PEEP NA 08/31/16 07:36 Pressure (ins/psv/peep) NA 08/31/16 07:36 Critical Value SH 08/31/16 07:36 Sodium 138 mEq/L (136-145) 08/31/16 08:20 Potassium 4.2 mEq/L (3.5-5.1) 08/31/16 08:20 Chloride 107 mEq/L (98-107) 08/31/16 08:20 Carbon Dioxide 25.7 mEq/L (21.0-31.0) 08/31/16 08:20 Anion Gap 9.5 (7.0-16.0) 08/31/16 08:20 BUN 13 mg/dL (7-25) 08/31/16 08:20 Creatinine 0.7 mg/dL (0.7-1.3) 08/31/16 08:20 Est GFR ( Amer) TNP 08/31/16 08:20 Est GFR (Non-Af Amer) TNP 08/31/16 08:20 BUN/Creatinine Ratio 18.6 08/31/16 08:20 Glucose 105 mg/dL (70-105) 08/31/16 08:20 Whole Bld Lactic Acid 1.32 mmol/L (0.60-1.99) 08/31/16 08:20 Calcium 9.3 mg/dL (8.6-10.3) 08/31/16 08:20 Total Bilirubin 0.5 mg/dL (0.3-1.0) 08/31/16 08:20 AST 13 U/L (13-39) 08/31/16 08:20 ALT 14 U/L (7-52) 08/31/16 08:20 Alkaline Phosphatase 77 U/L (34-104) 08/31/16 08:20 Troponin I 0.02 ng/mL (0.01-0.05) 08/31/16 08:20 Total Protein 6.9 gm/dL (6.0-8.3) 08/31/16 08:20 Albumin 3.6 gm/dL (4.2-5.5) L 08/31/16 08:20 Globulin 3.3 gm/dL 08/31/16 08:20 Albumin/Globulin Ratio 1.1 (1.0-1.8) 08/31/16 08:20 TSH 0.39 uIU/ml (0.34-5.60) 08/31/16 08:20 - Physical Exam Vitals and I&O: Vital Signs Temp 98.4 F 08/31/16 07:33 Pulse 96 08/31/16 10:39 Resp 18 08/31/16 10:39 BP 114/74 08/31/16 10:39 Pulse Ox 96 08/31/16 10:39 Active Medications: Current Medications Acetaminophen (Tylenol) 650 mg PO Q4HR PRN PRN Reason: Pain or Fever >101 Stop: 10/30/16 09:31 Albuterol Sulfate (Albuterol 2.5mg/3ml Neb Ud) 2.5 mg IH QID [facility] Stop: 10/30/16 12:59 Amiodarone HCl (Cordarone) 200 mg PO DAILY [facility] Stop: 10/31/16 08:59 Aspirin (Aspirin Chewable) 81 mg PO DAILY [facility] Stop: 10/31/16 08:59 Atorvastatin Calcium (Lipitor) 10 mg PO HS [facility] PRN Reason: Protocol Stop: 10/30/16 20:59 Bisacodyl (Dulcolax 10 Mg Supp) 10 mg RC Q72H PRN PRN Reason: Constipation Stop: 10/30/16 09:31 Budesonide (Pulmicort) 0.5 mg HHN Q12H [facility] Stop: 10/30/16 09:44 Last Admin: 08/31/16 10:04 Dose: 0.5 mg Buspirone HCl (Buspar) 10 mg PO TID [facility] Stop: 10/30/16 13:59 Donepezil HCl (Aricept) 10 mg PO HS [facility] Stop: 10/30/16 20:59 Guaifenesin (Robitussin) 200 mg PO Q4HR PRN PRN Reason: Cough or Congestion Stop: 10/30/16 09:34 Cefepime HCl 1 gm/ Dextrose 50 mls @ 100 mls/hr IV Q12H [facility] Stop: 10/30/16 09:44 Dextrose/Sodium Chloride (D5-0.45ns) 1,000 mls @ 60 mls/hr IV .[id number] [facility] Stop: 10/30/16 09:44 Vancomycin HCl 1 gm/ Sodium (Chloride) 250 mls @ 166.667 mls/hr IV Q24H [facility] Stop: 10/30/16 09:44 Vancomycin HCl 1 gm/ Sodium (Chloride) 250 mls @ 165 mls/hr IV Q12H [facility] Stop: 10/30/16 10:59 Ipratropium [place] (Atrovent Neb 0.5mg/2.5ml) 0.5 mg IH QID [facility] Stop: 10/30/16 12:59 Magnesium Hydroxide (Milk Of Magnesia) 30 ml PO HS PRN PRN Reason: Constipation Stop: 10/30/16 09:31 Methylprednisolone Sodium Succinate (Solu-Medrol) 40 mg IVP Q8HR [facility] Stop: 10/30/16 12:59 Miscellaneous (Arformoterol Tartrate [Brovana]) 15 mcg IH Q12H [facility] Stop: 10/30/16 09:44 Miscellaneous (Vancomycin Iv Per Pharmacy) 1 ea MC PRN [facility] Stop: 10/30/16 09:44 Montelukast Sodium (Singulair) 10 mg PO HS [facility] Stop: 10/30/16 20:59 Olanzapine (Zyprexa) 15 mg PO DAILY [facility] PRN Reason: Protocol Stop: 10/31/16 08:59 Ondansetron HCl (Zofran) 4 mg IV Q8H PRN PRN Reason: Nausea / Vomiting Stop: 10/30/16 09:34 Sodium Phosphate (Fleet Enema) 135 ml RC PRN PRN PRN Reason: Constipation Stop: 10/30/16 09:31 Tamsulosin HCl (Flomax) 0.4 mg PO HS [facility] Stop: 10/30/16 20:59 - Procedures Procedures: Procedures Procedure Code Date ASSISTANCE WITH RESPIRATORY VENTILATION, <24 HRS, CPAP 6Y34276 06/29/16 EXCISION OF DUODENUM, ENDO, DIAGN [id number] 07/18/16 EXCISION OF ESOPHAGUS, ENDO, DIAGN [id number] 07/18/16 EXCISION OF STOMACH, ENDO, DIAGN [id number] 07/18/16 POS AIRWAY PRESSURE CPAP [id number] 06/29/16 Internal Medicine Assmt/Plan - Assessment Assessment: Pneumonia Copd exacerbation Respiratory Failure htn dyslipidemia dementia
[2016-08-31] MEDS: Albuterol Nebulizer 2.5mg/3mL IH SCH ×3 (12:00→19:42)
[2016-08-31] MEDS: Ipratropium Neb 0.5 mg/2.5 mL UD IH SCH ×3 (12:00→19:44)
--- NOTE | 2016-08-31 12:55 | History & Physical ---
CHIEF COMPLAINT: Fever, cough and congestion. HISTORY OF PRESENT ILLNESS: This is a 75-year-old male who is a resident of [facility] who is brought here to [facility] with 1-day history of fever and congestion. The patient was recently here in July of this year for being treated for the same reason. Also, the patient was noted to have shortness of breath and some audible wheezes. For this reason, the patient was admitted to the med/surg unit. PAST MEDICAL HISTORY: Hypertension, CAD, asthma, COPD, dyslipidemia, PUD, GERD, dementia. FAMILY HISTORY: Noncontributory. SOCIAL HISTORY: The patient resides at [facility], requiring 24-hour nursing care. MEDICATIONS: Buspirone, Brovana, amiodarone, aspirin, Lipitor, Pulmicort, Aricept, Singulair, Zyprexa and Flomax. REVIEW OF SYSTEMS: GENERAL: Denies any fevers, any chills. CARDIOVASCULAR: Denies any chest pain or any palpitations. RESPIRATORY: Complains of off and on shortness of breath and productive cough. HEENT: Denies any headaches, any ear pain or nasal drainage. GASTROINTESTINAL: Denies any nausea, vomiting, abdominal pain. GENITOURINARY: Denies any dysuria. All other systems are reviewed and are negative. PHYSICAL EXAMINATION: GENERAL: The patient appears chronically ill, awake, alert. VITAL SIGNS: Temperature 98.4, heart rate 114, blood pressure 180/90, respirations 22, O2 sat of 92%. HEENT: Head; normocephalic, atraumatic. NECK: Supple. No mass. LUNGS: Wheezes bilaterally upon auscultation. HEART: Regular rhythm. ABDOMEN: Soft, nontender. SKIN: Warm and dry to touch. LABORATORY DATA: WBC 15.7, H and H 12.6 and 36.5. ABG, pH 7.42, bicarb 27.2, CO2 42.0. Sodium 138, potassium 4.2, chloride 107, BUN of 13, creatinine 0.7. DIAGNOSTICS: The patient had a chest x-ray done and the impression is, there is consolidation and effusion at the left lung base. ASSESSMENT: Pneumonia, acute respiratory failure, hypertension, dyslipidemia, chronic obstructive pulmonary disease exacerbation. PLAN: The patient will be admitted to the med/surg unit. The patient will be on bronchodilators as well as IV antibiotics of vancomycin and Solu-Medrol as well. Monitor the patient's white count. We will continue to monitor the patient. JOB# [id number]
[2016-08-31] MEDS ORDERED: Non-Formulary Item 1 EA (Buspirone Hcl [Buspirone Hcl] 10 MG) PO SCH (14:00)
[2016-08-31 14:10] VITALS: BP 111/71
[2016-08-31] MEDS: methylPREDNISolone SS 40 mg Vial IVP SCH ×2 (14:12→22:12)
[2016-08-31] MEDS: D5-0.45NS 1,000 ML IV SCH (14:30)
--- NOTE | 2016-08-31 19:27 | Admit Criteria Form ---
Admit Criteria Forms - Admit Criteria Diagnosis: PNEUMONIA, COMMUNITY ACQUIRED Clinical Indications for Admission to Inpatient Care ( Place 'X' for any and all applicable criteria): Admission is indicated for ANY ONE of the following (1)(2)(3): [ ]I. Hypoxemia indicated by ANY ONE of the following: [ ]a) Oxygen saturation less than 90% while breathing room air [ ]b) PO2 less than 60 mm Hg (8.0 kPa) while breathing room air [ ]c) Chronic lung disease with significant deterioration from baseline oxygenation [ ]II. Appropriate diagnostic testing and treatment unavailable in outpatient or recovery facility (eg,testing or infection control measures unavailable(10) [X]III. Moderate-risk or high-risk category patients (Pneumonia Severity Index (PSI) class IV or V, or CURB-65 score of 3 or greater). [ ]IV. Outpatient treatment failure as indicated by ANY ONE of the following(9) : [ ]a) Failure to respond to antibiotic (eg, resistant organism) [ ]b) Clinically significant adverse effects from medication (eg, vomiting) [ ]c) Complications of pneumonia (eg, empyema, bacteremia) [ ]d) Significant worsening of comorbid cond necessitating inpatient care (eg, chronic heart failure) [ ]V. Intermediate-risk category patients (eg, PSI class III or CURB-65 score 2) who do not improve with initial therapy and observation. [ ]. Immunocompromised patients (eg, AIDS, chronic steroid use) at moderate or high risk based on clinical evaluation. [ ]VII. Complicated pleural effusions (eg, exudative, loculated) [ ]VIII.Hemodynamic instability [ ] IX. Altered mental status that is severe or persistent. [ ]X. Dehydration that is severe or persistent. [ ]XI. Bacteremia [ ]XII. Respiratory finding (eg. tachypnea) that do not respond to outpatient or observation care treatment Extended stay beyond goal length of stay may be needed for (20) [ ]a) Unclear diagnosis [ ]b) Pleural disease [ ]c) Severe pneumonia or treatment failure (25 [ ]d) Respiratory failure (anticipate invasive or noninvasive ventilatory support) [ ]e) Abnormal serum electrolytes (serum Na concentration less than 135 mEq/L (mmol/L) (32)(33) [ ]f) Clinically significant comorbid illness (eg, heart failure, atrial fibrillation with rapid heart rate, alcohol withdrawal, renal insufficiency)(34)(35) [ ]g) Comorbid acute exacerbation of COPD(36) [ ]h) Concomitant diagnosis of malignancy that may be associated with malnutrition, immunologic impairment, or bronchial obstruction. [ ]i) Concomitant altered mental status [ ]j) Culture-identified Gram-negative or antibiotic-resistant organism (eg, Pseudomonas, methicillin-resistant Staphylococcus aureus)(30) [ ]k) Healthcare-associated pneumonia The original [facility] content created by [employer] has been revised. The portions of the content which have been revised are identified through the use of italic text or in bold, and [facility] has neither reviewed nor approved the modified material. All other unmodified content is copyright [facility] [employer]. Please see references footnoted in the original [facility] [employer] edition 2016 Admit Criteria Met?: Yes
[2016-08-31] MEDS: Atorvastatin Calcium 10 MG TAB PO SCH (21:57)
--- NOTE | 2016-09-01 00:15 | Consultation ---
The patient of Dr. Lobo Quiroz. Thank you very much Dr. Quiroz for this consultation. HISTORY OF PRESENT ILLNESS: This is a 75-year-old male who was a care home resident, admitted for cough, congestion, and shortness of breath. The patient apparently has history of COPD and history of smoking in the past, also history of respiratory failure, dementia in the past, metastatic melanoma apparently had a tracheostomy at one point in the past as well. The patient has still congested with lot of of the secretions. REVIEW OF SYSTEMS: GENERAL: No weakness or fatigue. CARDIOVASCULAR: No chest pain, no palpitation. RESPIRATORY: Shortness of breath, cough, and congestion. PHYSICAL EXAMINATION: GENERAL: Awake and alert, not in acute distress. VITAL SIGNS: Temperature 98.1, pulse 87, respirations 18, blood pressure 111/71, and saturation 98%. HEENT: Atraumatic and normocephalic. Pupils are reactive to light and accommodation. Ears, nose, and throat normal. NECK: Supple. No JVD. CHEST: There is rhonchi bilaterally, fair air entry. No wheezing. HEART: Regular rhythm. ABDOMEN: Soft and nontender. EXTREMITIES: No edema. LABORATORY DATA: WBC is 15.7, hemoglobin 12.6, hematocrit 26.5, and platelets is 353,000. ABGs: pH 7.42, pCO2 of 42, pO2 is 53, bicarbonate 27, and saturation 98% on room air. Sodium 138, potassium 4.2, and creatinine 0.7. Chest x-ray showed infiltrated left lower lobe with atelectasis and COPD changes. IMPRESSION: 1. This is a 75-year-old male with respiratory failure. 2. Chronic obstructive pulmonary disease. 3. Pneumonia. PLAN: 1. IV antibiotics. 2. Nebulizer. 3. Solu-Medrol and Pulmicort. 4. Add Mucomyst. 5. Follow up chest x-ray. JOB# [id number] [facility]
[2016-09-01] MEDS: methylPREDNISolone SS 40 mg Vial IVP SCH ×3 (05:21→20:44)
[2016-09-01] MEDS: Ipratropium Neb 0.5 mg/2.5 mL UD IH SCH ×4 (06:50→18:57)
[2016-09-01] MEDS: Albuterol Nebulizer 2.5mg/3mL IH SCH ×4 (06:50→18:57)
[2016-09-01 07:20] LABS: HEMATOCRIT 36.1 % (39.0-49.0); HEMOGLOBIN 12.3 gm/dL (12.6-17.4); MEAN CELL VOLUME 86.9 fl (80-99); MEAN CORPUSCULAR HEMOGLOBIN 29.6 pg (27.0-31.0); MEAN CORPUSCULAR HGB CONC 34.1 pg (28.0-36.0); MEAN PLATELET VOLUME 8.4 fl; RED BLOOD COUNT 4.15 Mil/cmm (3.80-5.80); RED CELL DISTRIBUTION WIDTH 14.1 % (11.5-20.0); WHITE BLOOD COUNT 16.2 Th/cmm (4.8-10.8)
[2016-09-01 07:23] LABS: ANION GAP 9.3 (7.0-16.0); BUN - UREA NITROGEN 18 mg/dL (7-25); BUN/CREATININE RATIO 22.5; CALCIUM SERUM 9.4 mg/dL (8.6-10.3); CARBON DIOXIDE 24.3 mEq/L (21.0-31.0); CHLORIDE 110 mEq/L (98-107); CREATININE - SERUM 0.8 mg/dL (0.7-1.3); GLUCOSE 143 mg/dL (70-105); PLATELET COUNT 212 Th/cmm (150-400); POTASSIUM SERUM 4.6 mEq/L (3.5-5.1); SODIUM SERUM 139 mEq/L (136-145)
[2016-09-01] MEDS: Aspirin 81mg Chewable Tab PO SCH (08:23)
[2016-09-01 09:01] LABS: BAND NEUTROPHILE 6 % (0-10); NEUTROPHILS 89 % (40-80); TOTAL CELLS COUNTED 100
[2016-09-01 09:02] LABS: PLATELET ESTIMATE ADEQUATE (NORMAL); PLATELET MORPHOLOGY GIANT PLATELETS SEEN (NORMAL)
[2016-09-01] MEDS: D5-0.45NS 1,000 ML IV SCH (09:23)
--- NOTE | 2016-09-01 12:10 | Internal Medicine Prog Note ---
Internal Medicine Subjective - Subjective Service Date: 09/01/16 Patient seen and examined:: with staff Patient is:: awake Per staff patient is:: no adverse event Internal Medicine Objective - Results Result Diagrams: 09/01/16 06:30 09/01/16 06:30 Recent Labs: Laboratory Last Values WBC 16.2 Th/cmm (4.8-10.8) H 09/01/16 06:30 RBC 4.15 Mil/cmm (3.80-5.80) 09/01/16 06:30 Hgb 12.3 gm/dL (12.6-17.4) L 09/01/16 06:30 Hct 36.1 % (39.0-49.0) L 09/01/16 06:30 MCV 86.9 fl (80-99) 09/01/16 06:30 MCH 29.6 pg (27.0-31.0) 09/01/16 06:30 MCHC Differential 34.1 pg (28.0-36.0) 09/01/16 06:30 RDW 14.1 % (11.5-20.0) 09/01/16 06:30 Plt Count 212 Th/cmm (150-400) D 09/01/16 06:30 MPV 8.4 fl 09/01/16 06:30 Band Neutrophils % 6 % (0-10) 09/01/16 06:30 Neutrophils (Manual) 89 % (40-80) H 09/01/16 06:30 Lymphocytes 3 % (20-50) L 09/01/16 06:30 Monocytes 2 % (2-10) 09/01/16 06:30 Platelet Estimate ADEQUATE (NORMAL) 09/01/16 06:30 Platelet Morphology GIANT PLATELETS SEEN (NORMAL) 09/01/16 06:30 RBC Morph Micro Appear NORMAL (NORMAL) 09/01/16 06:30 PT 9.8 SECONDS (9.5-11.5) 08/31/16 08:20 INR 0.99 (0.5-1.4) 08/31/16 08:20 Specimen Source Arterial 08/31/16 07:36 Sample Site Right Radial 08/31/16 07:36 pH 7.42 (7.35-7.45) 08/31/16 07:36 pCO2 42.0 mmHg (35.0-45.0) 08/31/16 07:36 pO2 53.0 mmHg (80.0-100.0) L 08/31/16 07:36 HCO3 27.2 mmol/L (20.0-26.0) H 08/31/16 07:36 Base Excess 2.4 mmol/L (-3.0-3.0) 08/31/16 07:36 O2 Saturation 88.0 % (92.0-100.0) L 08/31/16 07:36 Praveen Test YES 08/31/16 07:36 Vent Rate NA 08/31/16 07:36 Inspired O2 21 08/31/16 07:36 Tidal Volume NA 08/31/16 07:36 PEEP NA 08/31/16 07:36 Pressure (ins/psv/peep) NA 08/31/16 07:36 Critical Value SH 08/31/16 07:36 Sodium 139 mEq/L (136-145) 09/01/16 06:30 Potassium 4.6 mEq/L (3.5-5.1) 09/01/16 06:30 Chloride 110 mEq/L (98-107) H 09/01/16 06:30 Carbon Dioxide 24.3 mEq/L (21.0-31.0) 09/01/16 06:30 Anion Gap 9.3 (7.0-16.0) 09/01/16 06:30 BUN 18 mg/dL (7-25) 09/01/16 06:30 Creatinine 0.8 mg/dL (0.7-1.3) 09/01/16 06:30 Est GFR ( Amer) TNP 09/01/16 06:30 Est GFR (Non-Af Amer) TNP 09/01/16 06:30 BUN/Creatinine Ratio 22.5 09/01/16 06:30 Glucose 143 mg/dL (70-105) H 09/01/16 06:30 Whole Bld Lactic Acid 1.32 mmol/L (0.60-1.99) 08/31/16 08:20 Calcium 9.4 mg/dL (8.6-10.3) 09/01/16 06:30 Total Bilirubin 0.5 mg/dL (0.3-1.0) 08/31/16 08:20 AST 13 U/L (13-39) 08/31/16 08:20 ALT 14 U/L (7-52) 08/31/16 08:20 Alkaline Phosphatase 77 U/L (34-104) 08/31/16 08:20 Troponin I 0.02 ng/mL (0.01-0.05) 08/31/16 08:20 Total Protein 6.9 gm/dL (6.0-8.3) 08/31/16 08:20 Albumin 3.6 gm/dL (4.2-5.5) L 08/31/16 08:20 Globulin 3.3 gm/dL 08/31/16 08:20 Albumin/Globulin Ratio 1.1 (1.0-1.8) 08/31/16 08:20 TSH 0.39 uIU/ml (0.34-5.60) 08/31/16 08:20 Vancomycin Trough 7.9 ug/mL (10-20) L 09/01/16 10:05 RPR NONREACTIVE (NONREACTIVE) 08/31/16 08:20 - Physical Exam Vitals and I&O: Vital Signs Temp 96.7 F 09/01/16 08:00 Pulse 78 09/01/16 10:50 Resp 18 09/01/16 10:50 BP 128/76 09/01/16 08:00 Pulse Ox 93 09/01/16 10:50 Intake & Output 08/31/16 09/01/16 09/01/16 18:59 06:59 18:59 Intake Total 817 44 7837 Balance 608 44 0987 Intake: Intake, IV Amount 886 16 0257 Cefepime 1 gm In Dextrose 50 5% 50 ml @ 100 mls/hr IV Q12H [facility] Rx#:[id number] D5-0.45NS 1,000 ml @ 60 1000 mls/hr IV .[id number] [facility] Rx #:[id number] Vancomycin HCl 1 gm In 250 Sodium Chloride 0.9% 250 ml @ 165 mls/hr IV Q12H [facility] Rx#:[id number] Oral 8 Other: # Voids 1 Stool Characteristics Soft Soft Soft Active Medications: Current Medications Acetaminophen (Tylenol) 650 mg PO Q4HR PRN PRN Reason: Pain or Fever >101 Stop: 10/30/16 09:31 Acetylcysteine (Mucomyst 20%) 2 ml HHN Q6HRT [facility] Stop: 10/30/16 18:59 Last Admin: 09/01/16 10:46 Dose: 2 ml Albuterol Sulfate (Albuterol 2.5mg/3ml Neb Ud) 2.5 mg IH QID [facility] Stop: 10/30/16 12:59 Last Admin: 09/01/16 10:46 Dose: 2.5 mg Amiodarone HCl (Cordarone) 200 mg PO DAILY [facility] Stop: 10/31/16 08:59 Last Admin: 09/01/16 08:24 Dose: 200 mg Aspirin (Aspirin Chewable) 81 mg PO DAILY [facility] Stop: 10/31/16 08:59 Last Admin: 09/01/16 08:23 Dose: 81 mg Atorvastatin Calcium (Lipitor) 10 mg PO HS [facility] PRN Reason: Protocol Stop: 10/30/16 20:59 Last Admin: 08/31/16 21:57 Dose: 10 mg Bisacodyl (Dulcolax 10 Mg Supp) 10 mg RC Q72H PRN PRN Reason: Constipation Stop: 10/30/16 09:31 Budesonide (Pulmicort) 0.5 mg HHN Q12H [facility] Stop: 10/30/16 09:44 Last Admin: 08/31/16 19:45 Dose: 0.5 mg Buspirone HCl (Buspar) 10 mg PO TID [facility] Stop: 10/30/16 13:59 Last Admin: 09/01/16 08:24 Dose: 10 mg Donepezil HCl (Aricept) 10 mg PO HS [facility] Stop: 10/30/16 20:59 Last Admin: 08/31/16 21:56 Dose: 10 mg Guaifenesin (Robitussin) 200 mg PO Q4HR PRN PRN Reason: Cough or Congestion Stop: 10/30/16 09:34 Last Admin: 09/01/16 08:23 Dose: 200 mg Cefepime HCl 1 gm/ Dextrose 50 mls @ 100 mls/hr IV Q12H [facility] Stop: 10/30/16 09:44 Last Admin: 09/01/16 09:19 Dose: 100 mls/hr Dextrose/Sodium Chloride (D5-0.45ns) 1,000 mls @ 60 mls/hr IV .[id number] [facility] Stop: 10/30/16 09:44 Last Admin: 09/01/16 09:23 Dose: 60 mls/hr Vancomycin HCl 1.25 gm/ Sodium (Chloride) 250 mls @ 165 mls/hr IV 0100,1300 [facility] Stop: 10/31/16 11:59 Ipratropium [place] (Atrovent Neb 0.5mg/2.5ml) 0.5 mg IH QID [facility] Stop: 10/30/16 12:59 Last Admin: 09/01/16 10:46 Dose: 0.5 mg Magnesium Hydroxide (Milk Of Magnesia) 30 ml PO HS PRN PRN Reason: Constipation Stop: 10/30/16 09:31 Methylprednisolone Sodium Succinate (Solu-Medrol) 40 mg IVP Q8HR [facility] Stop: 10/30/16 12:59 Last Admin: 09/01/16 05:21 Dose: 40 mg Miscellaneous (Vancomycin Iv Per Pharmacy) 1 ea MC PRN [facility] Stop: 10/30/16 09:44 Montelukast Sodium (Singulair) 10 mg PO [facility] Stop: 10/30/16 20:59 Last Admin: 08/31/16 22:33 Dose: 10 mg Olanzapine (Zyprexa) 15 mg PO DAILY [facility] PRN Reason: Protocol Stop: 10/31/16 08:59 Last Admin: 09/01/16 08:23 Dose: 15 mg Ondansetron HCl (Zofran) 4 mg IV Q8H PRN PRN Reason: Nausea / Vomiting Stop: 10/30/16 09:34 Sodium Phosphate (Fleet Enema) 135 ml RC PRN PRN PRN Reason: Constipation Stop: 10/30/16 09:31 Tamsulosin HCl (Flomax) 0.4 mg PO [facility] Stop: 10/30/16 20:59 Last Admin: 08/31/16 21:56 Dose: 0.4 mg General: weak, alert HEENT: NC/AT, PERRLA Neck: Supple Lungs: ronchi Cardiovascular: RRR, Normal S1, Normal S2, without murmur Abdomen: soft non-tender, non-distended Extremities: clear - Procedures Procedures: Procedures Procedure Code Date ASSISTANCE WITH RESPIRATORY VENTILATION, <24 HRS, CPAP [id number] 06/29/16 EXCISION OF DUODENUM, ENDO, DIAGN [id number] 07/18/16 EXCISION OF ESOPHAGUS, ENDO, DIAGN [id number] 01/12/17 EXCISION OF STOMACH, ENDO, DIAGN [id number] 07/18/16 POS AIRWAY PRESSURE CPAP [id number] 06/29/16 Internal Medicine Assmt/Plan - Assessment Assessment: Pneumonia Copd exacerbation Respiratory Failure htn dyslipidemia dementia - Plan Plan: bronchodilators continue ivabx cbc/bmp in am supplemental o2
[2016-09-01] MEDS: Budesonide 0.5 Mg/2 mL Ud HHN SCH (18:56)
[2016-09-01] MEDS: Atorvastatin Calcium 10 MG TAB PO SCH (20:43)
[2016-09-02] MEDS: Albuterol Nebulizer 2.5mg/3mL IH SCH (00:54)
[2016-09-02] MEDS: Ipratropium Neb 0.5 mg/2.5 mL UD IH SCH (00:54)
[2016-09-02 07:12] LABS: HEMOGLOBIN 11.3 gm/dL (12.6-17.4); MEAN CELL VOLUME 86.6 fl (80-99); MEAN CORPUSCULAR HEMOGLOBIN 29.7 pg (27.0-31.0); MEAN CORPUSCULAR HGB CONC 34.3 pg (28.0-36.0); RED BLOOD COUNT 3.81 Mil/cmm (3.80-5.80); WHITE BLOOD COUNT 19.2 Th/cmm (4.8-10.8)
[2016-09-02 07:20] LABS: PLATELET COUNT 293 Th/cmm (150-400)
[2016-09-02] MEDS: methylPREDNISolone SS 40 mg Vial IVP SCH ×2 (07:26→12:42)
[2016-09-02 07:27] LABS: ANION GAP 8.7 (7.0-16.0); BUN - UREA NITROGEN 25 mg/dL (7-25); BUN/CREATININE RATIO 41.7; CALCIUM SERUM 8.9 mg/dL (8.6-10.3); CARBON DIOXIDE 24.5 mEq/L (21.0-31.0); CHLORIDE 111 mEq/L (98-107); CREATININE - SERUM 0.6 mg/dL (0.7-1.3); GLUCOSE 145 mg/dL (70-105); POTASSIUM SERUM 4.2 mEq/L (3.5-5.1); SODIUM SERUM 140 mEq/L (136-145)
[2016-09-02 08:49] LABS: BAND NEUTROPHILE 1 % (0-10); NEUTROPHILS 96 % (40-80); PLATELET ESTIMATE ADEQUATE (NORMAL); PLATELET MORPHOLOGY NORMAL (NORMAL); TOTAL CELLS COUNTED 100
[2016-09-02] MEDS: Aspirin 81mg Chewable Tab PO SCH (08:52)
[2016-09-02 08:53] LABS: ANISOCYTOSIS 1+
--- NOTE | 2016-09-02 09:45 | Diagnostic Imaging Report ---
Portable chest x-ray HISTORY: Shortness of breath Compared with prior exam of 08/31/2016, the heart is enlarged. Density noted in the left lower hemithorax that may be associated pleural fluid. Underlying consolidation and/or atelectasis cannot be excluded. IMPRESSION: 1. Persistent density left lower hemithorax that may be associated with pleural fluid. Underlying consolidation and/or atelectasis cannot be excluded. 2. Persistent cardiomegaly
[2016-09-02] MEDS: Ipratropium Neb 0.5 mg/2.5 mL UD HHN SCH ×3 (10:54→19:00)
[2016-09-02] MEDS: Albuterol Nebulizer 2.5mg/3mL HHN SCH ×3 (10:54→19:01)
[2016-09-02] MEDS: D5-0.45NS 1,000 ML IV SCH (12:09)
--- NOTE | 2016-09-02 13:10 | Internal Medicine Prog Note ---
Internal Medicine Subjective - Subjective Service Date: 09/02/16 Patient seen and examined:: with staff Patient is:: awake Per staff patient is:: no adverse event Internal Medicine Objective - Results Result Diagrams: 09/02/16 06:30 09/02/16 06:30 Recent Labs: Laboratory Last Values WBC 19.2 Th/cmm (4.8-10.8) H 09/02/16 06:30 RBC 3.81 Mil/cmm (3.80-5.80) 09/02/16 06:30 Hgb 11.3 gm/dL (12.6-17.4) L 09/02/16 06:30 Hct 33.0 % (39.0-49.0) L 09/02/16 06:30 MCV 86.6 fl (80-99) 09/02/16 06:30 MCH 29.7 pg (27.0-31.0) 09/02/16 06:30 MCHC Differential 34.3 pg (28.0-36.0) 09/02/16 06:30 RDW 14.0 % (11.5-20.0) 09/02/16 06:30 Plt Count 293 Th/cmm (150-400) D 09/02/16 06:30 MPV 8.0 fl 09/02/16 06:30 Band Neutrophils % 1 % (0-10) 09/02/16 06:30 Neutrophils (Manual) 96 % (40-80) H 09/02/16 06:30 Lymphocytes 1 % (20-50) L 09/02/16 06:30 Monocytes 2 % (2-10) 09/02/16 06:30 Platelet Estimate ADEQUATE (NORMAL) 09/02/16 06:30 Platelet Morphology NORMAL (NORMAL) 09/02/16 06:30 Anisocytosis 1+ 09/02/16 06:30 RBC Morph Micro Appear ABNORMAL (NORMAL) 09/02/16 06:30 PT 9.8 SECONDS (9.5-11.5) 08/31/16 08:20 INR 0.99 (0.5-1.4) 08/31/16 08:20 Specimen Source Arterial 08/31/16 07:36 Sample Site Right Radial 08/31/16 07:36 pH 7.42 (7.35-7.45) 08/31/16 07:36 pCO2 42.0 mmHg (35.0-45.0) 08/31/16 07:36 pO2 53.0 mmHg (80.0-100.0) L 08/31/16 07:36 HCO3 27.2 mmol/L (20.0-26.0) H 08/31/16 07:36 Base Excess 2.4 mmol/L (-3.0-3.0) 08/31/16 07:36 O2 Saturation 88.0 % (92.0-100.0) L 08/31/16 07:36 Praveen Test YES 08/31/16 07:36 Vent Rate NA 08/31/16 07:36 Inspired O2 21 08/31/16 07:36 Tidal Volume NA 08/31/16 07:36 PEEP NA 08/31/16 07:36 Pressure (ins/psv/peep) NA 08/31/16 07:36 Critical Value SH 08/31/16 07:36 Sodium 140 mEq/L (136-145) 09/02/16 06:30 Potassium 4.2 mEq/L (3.5-5.1) 09/02/16 06:30 Chloride 111 mEq/L (98-107) H 09/02/16 06:30 Carbon Dioxide 24.5 mEq/L (21.0-31.0) 09/02/16 06:30 Anion Gap 8.7 (7.0-16.0) 09/02/16 06:30 BUN 25 mg/dL (7-25) 09/02/16 06:30 Creatinine 0.6 mg/dL (0.7-1.3) L 09/02/16 06:30 Est GFR ( Amer) TNP 09/02/16 06:30 Est GFR (Non-Af Amer) TNP 09/02/16 06:30 BUN/Creatinine Ratio 41.7 09/02/16 06:30 Glucose 145 mg/dL (70-105) H 09/02/16 06:30 Whole Bld Lactic Acid 1.32 mmol/L (0.60-1.99) 08/31/16 08:20 Calcium 8.9 mg/dL (8.6-10.3) 09/02/16 06:30 Total Bilirubin 0.5 mg/dL (0.3-1.0) 08/31/16 08:20 AST 13 U/L (13-39) 08/31/16 08:20 ALT 14 U/L (7-52) 08/31/16 08:20 Alkaline Phosphatase 77 U/L (34-104) 08/31/16 08:20 Troponin I 0.02 ng/mL (0.01-0.05) 08/31/16 08:20 Total Protein 6.9 gm/dL (6.0-8.3) 08/31/16 08:20 Albumin 3.6 gm/dL (4.2-5.5) L 08/31/16 08:20 Globulin 3.3 gm/dL 08/31/16 08:20 Albumin/Globulin Ratio 1.1 (1.0-1.8) 08/31/16 08:20 TSH 0.39 uIU/ml (0.34-5.60) 08/31/16 08:20 Vancomycin Trough 13.9 ug/mL (10-20) 09/02/16 11:55 RPR NONREACTIVE (NONREACTIVE) 08/31/16 08:20 - Physical Exam Vitals and I&O: Vital Signs Temp 97.8 F 09/02/16 12:00 Pulse 77 09/02/16 12:00 Resp 20 09/02/16 12:00 BP 116/79 09/02/16 12:00 Pulse Ox 77 09/02/16 12:00 Intake & Output 09/01/16 09/02/16 09/02/16 18:59 06:59 18:59 Intake Total 1300 1050 Output Total 350 Balance 1300 700 Intake: Intake, IV Amount 1300 1050 Cefepime 1 gm In Dextrose 50 50 5% 50 ml @ 100 mls/hr IV Q12H [facility] Rx#:[id number] D5-0.45NS 1,000 ml @ 60 1000 1000 mls/hr IV .[id number] [facility] Rx #:[id number] Vancomycin HCl 1.25 gm In 250 Sodium Chloride 0.9% 250 ml @ 165 mls/hr IV 0100, 1300 [facility] Rx#:[id number] Output: Urine 350 Other: # Voids 1 Stool Characteristics Soft Active Medications: Current Medications Acetaminophen (Tylenol) 650 mg PO Q4HR PRN PRN Reason: Pain or Fever >101 Stop: 10/30/16 09:31 Acetylcysteine (Mucomyst 20%) 2 ml HHN Q6HRT [facility] Stop: 10/30/16 18:59 Last Admin: 09/02/16 00:55 Dose: 2 ml Albuterol Sulfate (Albuterol 2.5mg/3ml Neb Ud) 2.5 mg HHN QIDRT [facility] Stop: 10/30/16 12:59 Last Admin: 09/02/16 10:54 Dose: 2.5 mg Amiodarone HCl (Cordarone) 200 mg PO DAILY [facility] Stop: 10/31/16 08:59 Last Admin: 09/02/16 08:52 Dose: 200 mg Aspirin (Aspirin Chewable) 81 mg PO DAILY [facility] Stop: 10/31/16 08:59 Last Admin: 09/02/16 08:52 Dose: 81 mg Atorvastatin Calcium (Lipitor) 10 mg PO HS [facility] PRN Reason: Protocol Stop: 10/30/16 20:59 Last Admin: 09/01/16 20:43 Dose: 10 mg Bisacodyl (Dulcolax 10 Mg Supp) 10 mg RC Q72H PRN PRN Reason: Constipation Stop: 10/30/16 09:31 Budesonide (Pulmicort) 0.5 mg N Q12HRT [facility] Stop: 10/30/16 09:44 Buspirone HCl (Buspar) 10 mg PO TID [facility] Stop: 10/30/16 13:59 Last Admin: 09/02/16 08:52 Dose: 10 mg Donepezil HCl (Aricept) 10 mg PO HS [facility] Stop: 10/30/16 20:59 Last Admin: 09/01/16 20:43 Dose: 10 mg Guaifenesin (Robitussin) 200 mg PO Q4HR PRN PRN Reason: Cough or Congestion Stop: 10/30/16 09:34 Last Admin: 09/01/16 08:23 Dose: 200 mg Cefepime HCl 1 gm/ Dextrose 50 mls @ 100 mls/hr IV Q12H [facility] Stop: 10/30/16 09:44 Last Admin: 09/02/16 08:57 Dose: 100 mls/hr Dextrose/Sodium Chloride (D5-0.45ns) 1,000 mls @ 60 mls/hr IV .[id number] [facility] Stop: 10/30/16 09:44 Last Admin: 09/02/16 12:09 Dose: 60 mls/hr Vancomycin HCl 1.25 gm/ Sodium (Chloride) 250 mls @ 165 mls/hr IV 0100,1300 [facility] Stop: 10/31/16 11:59 Last Admin: 09/02/16 00:21 Dose: 165 mls/hr Ipratropium [place] (Atrovent Neb 0.5mg/2.5ml) 0.5 mg HHN QIDRT [facility] Stop: 10/30/16 12:59 Last Admin: 09/02/16 10:54 Dose: 0.5 mg Magnesium Hydroxide (Milk Of Magnesia) 30 ml PO PRN PRN Reason: Constipation Stop: 10/30/16 09:31 Methylprednisolone Sodium Succinate (Solu-Medrol) 40 mg IVP Q8HR [facility] Stop: 10/30/16 12:59 Last Admin: 09/02/16 12:42 Dose: 40 mg Miscellaneous (Vancomycin Iv Per Pharmacy) 1 ea MC PRN [facility] Stop: 10/30/16 09:44 Montelukast Sodium (Singulair) 10 mg PO [facility] Stop: 10/30/16 20:59 Last Admin: 09/01/16 20:43 Dose: 10 mg Olanzapine (Zyprexa) 15 mg PO DAILY [facility] PRN Reason: Protocol Stop: 10/31/16 08:59 Last Admin: 09/02/16 08:52 Dose: 15 mg Ondansetron HCl (Zofran) 4 mg IV Q8H PRN PRN Reason: Nausea / Vomiting Stop: 10/30/16 09:34 Sodium Phosphate (Fleet Enema) 135 ml RC PRN PRN PRN Reason: Constipation Stop: 10/30/16 09:31 Tamsulosin HCl (Flomax) 0.4 mg PO [facility] Stop: 10/30/16 20:59 Last Admin: 09/01/16 20:44 Dose: 0.4 mg General: alert HEENT: NC/AT, PERRLA Neck: Supple Lungs: CTAB Cardiovascular: RRR, Normal S1, Normal S2, without murmur Abdomen: soft non-tender - Procedures Procedures: Procedures Procedure Code Date ASSISTANCE WITH RESPIRATORY VENTILATION, <24 HRS, CPAP [id number] 06/29/16 EXCISION OF DUODENUM, ENDO, DIAGN [id number] 07/18/16 EXCISION OF ESOPHAGUS, ENDO, DIAGN [id number] 07/18/16 EXCISION OF STOMACH, ENDO, DIAGN [id number] 07/18/16 POS AIRWAY PRESSURE CPAP 69149 06/29/16 Internal Medicine Assmt/Plan - Assessment Assessment: Pneumonia Copd exacerbation Respiratory Failure htn dyslipidemia dementia - Plan Plan: bronchodilators continue ivabx f/u labs supplemental o2
[2016-09-02] MEDS: Budesonide 0.5 Mg/2 mL Ud HHN SCH (19:00)
[2016-09-02] MEDS: Atorvastatin Calcium 10 MG TAB PO SCH (21:15)
[2016-09-03] MEDS: methylPREDNISolone SS 40 mg Vial IVP SCH ×5 (00:03→23:52)
[2016-09-03] MEDS: Ipratropium Neb 0.5 mg/2.5 mL UD HHN SCH ×4 (00:48→19:07)
[2016-09-03] MEDS: Albuterol Nebulizer 2.5mg/3mL HHN SCH ×3 (07:19→19:08)
[2016-09-03] MEDS: Budesonide 0.5 Mg/2 mL Ud HHN SCH ×2 (07:20→19:07)
[2016-09-03] MEDS: Aspirin 81mg Chewable Tab PO SCH (08:04)
[2016-09-03 09:46] LABS: HEMATOCRIT 35.2 % (39.0-49.0); HEMOGLOBIN 12.2 gm/dL (12.6-17.4); MEAN CELL VOLUME 84.9 fl (80-99); MEAN CORPUSCULAR HEMOGLOBIN 29.4 pg (27.0-31.0); MEAN CORPUSCULAR HGB CONC 34.7 pg (28.0-36.0); MEAN PLATELET VOLUME 7.8 fl; PLATELET COUNT 320 Th/cmm (150-400); RED BLOOD COUNT 4.14 Mil/cmm (3.80-5.80); RED CELL DISTRIBUTION WIDTH 14.3 % (11.5-20.0); WHITE BLOOD COUNT 16.2 Th/cmm (4.8-10.8)
[2016-09-03] MEDS: D5-0.45NS 1,000 ML IV SCH (10:08)
[2016-09-03 10:24] LABS: BAND NEUTROPHILE 3 % (0-10); NEUTROPHILS 94 % (40-80); PLATELET ESTIMATE ADEQUATE (NORMAL); PLATELET MORPHOLOGY NORMAL (NORMAL); TOTAL CELLS COUNTED 100
[2016-09-03 12:10] LABS: ANION GAP 10.2 (7.0-16.0); BUN - UREA NITROGEN 31 mg/dL (7-25); BUN/CREATININE RATIO 44.3; CARBON DIOXIDE 22.7 mEq/L (21.0-31.0); CHLORIDE 110 mEq/L (98-107); CREATININE - SERUM 0.7 mg/dL (0.7-1.3); GLUCOSE 181 mg/dL (70-105); POTASSIUM SERUM 3.9 mEq/L (3.5-5.1); SODIUM SERUM 139 mEq/L (136-145)
--- NOTE | 2016-09-03 13:10 | Internal Medicine Prog Note ---
Internal Medicine Subjective - Subjective Service Date: 09/03/16 Patient seen and examined:: with staff Patient is:: awake Patient Complaints of:: congestion Internal Medicine Objective - Results Result Diagrams: 09/03/16 09:20 09/03/16 09:20 Recent Labs: Laboratory Last Values WBC 16.2 Th/cmm (4.8-10.8) H 09/03/16 09:20 RBC 4.14 Mil/cmm (3.80-5.80) 09/03/16 09:20 Hgb 12.2 gm/dL (12.6-17.4) L 09/03/16 09:20 Hct 35.2 % (39.0-49.0) L 09/03/16 09:20 MCV 84.9 fl (80-99) 09/03/16 09:20 MCH 29.4 pg (27.0-31.0) 09/03/16 09:20 MCHC Differential 34.7 pg (28.0-36.0) 09/03/16 09:20 RDW 14.3 % (11.5-20.0) 09/03/16 09:20 Plt Count 320 Th/cmm (150-400) 09/03/16 09:20 MPV 7.8 fl 09/03/16 09:20 Band Neutrophils % 3 % (0-10) 09/03/16 09:20 Neutrophils (Manual) 94 % (40-80) H 09/03/16 09:20 Lymphocytes 2 % (20-50) L 09/03/16 09:20 Monocytes 1 % (2-10) L 09/03/16 09:20 Platelet Estimate ADEQUATE (NORMAL) 09/03/16 09:20 Platelet Morphology NORMAL (NORMAL) 09/03/16 09:20 Anisocytosis 1+ 09/02/16 06:30 RBC Morph Micro Appear NORMAL (NORMAL) 09/03/16 09:20 PT 9.8 SECONDS (9.5-11.5) 08/31/16 08:20 INR 0.99 (0.5-1.4) 08/31/16 08:20 Specimen Source Arterial 08/31/16 07:36 Sample Site Right Radial 08/31/16 07:36 pH 7.42 (7.35-7.45) 08/31/16 07:36 pCO2 42.0 mmHg (35.0-45.0) 08/31/16 07:36 pO2 53.0 mmHg (80.0-100.0) L 08/31/16 07:36 HCO3 27.2 mmol/L (20.0-26.0) H 08/31/16 07:36 Base Excess 2.4 mmol/L (-3.0-3.0) 08/31/16 07:36 O2 Saturation 88.0 % (92.0-100.0) L 08/31/16 07:36 Praveen Test YES 08/31/16 07:36 Vent Rate NA 08/31/16 07:36 Inspired O2 21 08/31/16 07:36 Tidal Volume NA 08/31/16 07:36 PEEP NA 08/31/16 07:36 Pressure (ins/psv/peep) NA 08/31/16 07:36 Critical Value SH 08/31/16 07:36 Sodium 139 mEq/L (136-145) 09/03/16 09:20 Potassium 3.9 mEq/L (3.5-5.1) 09/03/16 09:20 Chloride 110 mEq/L (98-107) H 09/03/16 09:20 Carbon Dioxide 22.7 mEq/L (21.0-31.0) 09/03/16 09:20 Anion Gap 10.2 (7.0-16.0) 09/03/16 09:20 BUN 31 mg/dL (7-25) H 09/03/16 09:20 Creatinine 0.7 mg/dL (0.7-1.3) 09/03/16 09:20 Est GFR ( Amer) TNP 09/03/16 09:20 Est GFR (Non-Af Amer) TNP 09/03/16 09:20 BUN/Creatinine Ratio 44.3 09/03/16 09:20 Glucose 181 mg/dL (70-105) H 09/03/16 09:20 Whole Bld Lactic Acid 1.32 mmol/L (0.60-1.99) 08/31/16 08:20 Calcium 9.0 mg/dL (8.6-10.3) 09/03/16 09:20 Total Bilirubin 0.5 mg/dL (0.3-1.0) 08/31/16 08:20 AST 13 U/L (13-39) 08/31/16 08:20 ALT 14 U/L (7-52) 08/31/16 08:20 Alkaline Phosphatase 77 U/L (34-104) 08/31/16 08:20 Troponin I 0.02 ng/mL (0.01-0.05) 08/31/16 08:20 Total Protein 6.9 gm/dL (6.0-8.3) 08/31/16 08:20 Albumin 3.6 gm/dL (4.2-5.5) L 08/31/16 08:20 Globulin 3.3 gm/dL 08/31/16 08:20 Albumin/Globulin Ratio 1.1 (1.0-1.8) 08/31/16 08:20 TSH 0.39 uIU/ml (0.34-5.60) 08/31/16 08:20 Vancomycin Trough 17.3 ug/mL (10-20) 09/03/16 09:20 RPR NONREACTIVE (NONREACTIVE) 08/31/16 08:20 - Physical Exam Vitals and I&O: Vital Signs Temp 97.5 F 09/03/16 11:37 Pulse 63 09/03/16 11:37 Resp 17 09/03/16 11:37 BP 137/80 09/03/16 11:37 Pulse Ox 95 09/03/16 11:37 Intake & Output 09/02/16 09/03/16 09/03/16 18:59 06:59 18:59 Intake Total 550 1350 50 Output Total 600 Balance -50 1350 50 Intake: Intake, IV Amount 50 1300 50 Cefepime 1 gm In Dextrose 50 50 50 5% 50 ml @ 100 mls/hr IV Q12H [facility] Rx#:[id number] D5-0.45NS 1,000 ml @ 60 1000 mls/hr IV .[id number] [facility] Rx #:[id number] Vancomycin HCl 1.25 gm In 250 Sodium Chloride 0.9% 250 ml @ 165 mls/hr IV Q12H [facility] Rx#:[id number] Oral 500 50 Output: Urine 600 Other: # Voids 3 Active Medications: Current Medications Acetaminophen (Tylenol) 650 mg PO Q4HR PRN PRN Reason: Pain or Fever >101 Stop: 10/30/16 09:31 Acetylcysteine (Mucomyst 20%) 2 ml HHN Q6HRT [facility] Stop: 10/30/16 18:59 Last Admin: 09/03/16 12:44 Dose: 2 ml Albuterol Sulfate (Albuterol 2.5mg/3ml Neb Ud) 2.5 mg HHN QIDRT [facility] Stop: 10/30/16 12:59 Last Admin: 09/03/16 12:44 Dose: 2.5 mg Amiodarone HCl (Cordarone) 200 mg PO DAILY [facility] Stop: 10/31/16 08:59 Last Admin: 09/03/16 08:07 Dose: 200 mg Aspirin (Aspirin Chewable) 81 mg PO DAILY [facility] Stop: 10/31/16 08:59 Last Admin: 09/03/16 08:04 Dose: 81 mg Atorvastatin Calcium (Lipitor) 10 mg PO [facility] PRN Reason: Protocol Stop: 10/30/16 20:59 Last Admin: 09/02/16 21:15 Dose: 10 mg Bisacodyl (Dulcolax 10 Mg Supp) 10 mg RC Q72H PRN PRN Reason: Constipation Stop: 10/30/16 09:31 Budesonide (Pulmicort) 0.5 mg N Q12HRT [facility] Stop: 10/30/16 09:44 Last Admin: 09/03/16 07:20 Dose: 0.5 mg Buspirone HCl (Buspar) 10 mg PO TID [facility] Stop: 10/30/16 13:59 Last Admin: 09/03/16 08:05 Dose: 10 mg Donepezil HCl (Aricept) 10 mg PO HS [facility] Stop: 10/30/16 20:59 Last Admin: 09/02/16 21:15 Dose: 10 mg Guaifenesin (Robitussin) 200 mg PO Q4HR PRN PRN Reason: Cough or Congestion Stop: 10/30/16 09:34 Last Admin: 09/01/16 08:23 Dose: 200 mg Cefepime HCl 1 gm/ Dextrose 50 mls @ 100 mls/hr IV Q12H [facility] Stop: 10/30/16 09:44 Last Infusion: 09/03/16 11:10 Dose: Infused Dextrose/Sodium Chloride (D5-0.45ns) 1,000 mls @ 60 mls/hr IV .[id number] [facility] Stop: 10/30/16 09:44 Last Admin: 09/03/16 10:08 Dose: 60 mls/hr Vancomycin HCl 1.25 gm/ Sodium (Chloride) 250 mls @ 165 mls/hr IV Q12H [facility] Stop: 11/01/16 21:59 Last Admin: 09/03/16 11:38 Dose: 165 mls/hr Ipratropium [place] (Atrovent Neb 0.5mg/2.5ml) 0.5 mg HHN Q6HRT [facility] Stop: 11/02/16 00:59 Last Admin: 09/03/16 12:44 Dose: 0.5 mg Magnesium Hydroxide (Milk Of Magnesia) 30 ml PO HS PRN PRN Reason: Constipation Stop: 10/30/16 09:31 Methylprednisolone Sodium Succinate (Solu-Medrol) 40 mg IVP Q6HR [facility] Stop: 11/02/16 00:00 Last Admin: 09/03/16 12:46 Dose: 40 mg Miscellaneous (Vancomycin Iv Per Pharmacy) 1 ea MC PRN [facility] Stop: 10/30/16 09:44 Montelukast Sodium (Singulair) 10 mg PO HS [facility] Stop: 10/30/16 20:59 Last Admin: 09/02/16 21:15 Dose: 10 mg Olanzapine (Zyprexa) 15 mg PO DAILY [facility] PRN Reason: Protocol Stop: 10/31/16 08:59 Last Admin: 09/03/16 08:04 Dose: 15 mg Ondansetron HCl (Zofran) 4 mg IV Q8H PRN PRN Reason: Nausea / Vomiting Stop: 10/30/16 09:34 Sodium Phosphate (Fleet Enema) 135 ml RC PRN PRN PRN Reason: Constipation Stop: 10/30/16 09:31 Tamsulosin HCl (Flomax) 0.4 mg PO HS [facility] Stop: 10/30/16 20:59 Last Admin: 09/02/16 21:15 Dose: 0.4 mg General: weak, alert HEENT: NC/AT, PERRLA Lungs: ronchi Cardiovascular: RRR, Normal S1, Normal S2, without murmur Abdomen: soft non-tender, non-distended - Procedures Procedures: Procedures Procedure Code Date ASSISTANCE WITH RESPIRATORY VENTILATION, <24 HRS, CPAP [id number] 06/29/16 EXCISION OF DUODENUM, ENDO, DIAGN [id number] 07/18/16 EXCISION OF ESOPHAGUS, ENDO, DIAGN [id number] 07/18/16 EXCISION OF STOMACH, ENDO, DIAGN [id number] 07/18/16 POS AIRWAY PRESSURE CPAP 81941 06/29/16 Internal Medicine Assmt/Plan - Assessment Assessment: Pneumonia Copd exacerbation Respiratory Failure htn dyslipidemia dementia - Plan Plan: cbc/bmp in am bronchodilators continue ivabx supplemental o2 Nutritional Asmnt/Malnutr-PDOC - Dietary Evaluation Malnutrition Findings (Please click <Entered> for more info): Nutritional Asmnt/Malnutrition Start: 09/02/16 14: 33 Text: Status: Complete Freq: Document 09/02/16 14:34 GSUN (Rec: 09/02/16 14:52 GSUN [email or web address]) Nutritional Asmnt/Malnutrition Patient General Information Nutritional Screening High Risk Screening Diagnosis Pneumonia, acute respiratory failure, COPD exacerbation Pertinent Medical Hx/Surgical Hx HTN, CAD, asthma, COPD, dyslipidemia, PUD, GERD, dementia Subjective Information 75yo M from SNF. Pt was alert, appeared anxious during visit . Pt was admitted here once in past July and twice in past June. Pt was ordered pureed + nectar thick during previous two stays. Most recent swallow eval 06/26/16 ST recommended mech soft + nectar thick. Discussed with pt regarding diet texture and tolerance, pt denied difficulties chewing/ swallowing and [facility]. Encouraged pt to inform RN if any diet texture intolerance noted, pt understood. PO intake 100% all 3 meals yesterday 09/01. Unable to lower pt's head for bedscale due to pt appeared anxious. Current Diet Order/ Nutrition [facility] + nectar thick Pertinent Medications Dulcolax, D5, MOM, Solu-Medrol , Vancomycin, Zofran, Fleet Enema Pertinent Labs Reviewed. Glucose 105, 143, 145 Nutritional Hx/Data Height 5 ft 8 in Height (Calculated Centimeters) 172.7 Current Weight (lbs) 162 lb Weight (Calculated Kilograms) 73.5 Weight (Calculated Grams) 10806.0 Usual body Weight (lbs) 161 Andrew Body Weight 154lb ([place]) Recent Weight Change No Weight Status Approriate GI Symptoms Food Allergies No Cultural/Ethnic/Sabianism Belief Unknown. Usual diet at home Unknown. Skin Integrity/Comment: Ruddy 11. Skin intact. Current %PO Good (75-100%) Estimated Nutritional Goals BEE in Kcals: Using Current wt Calories/Kcals/Kg 30-35kcal/kg Kcals Calculated 2205-2573kcal Protein: Using Current wt Protein g/k.2-1.4g/kg Protein Calculated 88-103g/kg Fluid: ml 2205-2573ml (1ml/kcal) Nutritional Problem 1. Problem Problem Increased kcal and prot needs related to Etiology hypermetabolic stated aeb Signs/Symptoms: pneumonia, COPD exacerbation, acute respiratory failure Intervention/Recommendation Comments 1. Continue with [facility] soft ground + necatar thick diet ( refer to subjective information in nutrition assessment). Continue to monitor and supervise during meal time. Expected Outcomes/Goals Expected Outcomes/Goals 1. PO intake to meet at least 75% of estimated nutritional needs. Physician Parameters for PEM Serum Albumin (g/dl) 3.5 - 5.0 (Normal)
[2016-09-03 18:10] LABS: URINE BILIRUBIN NEGATIVE (NEGATIVE); URINE COLOR YELLOW; URINE GLUCOSE (UA) NEGATIVE (NEGATIVE); URINE KETONE NEGATIVE (NEGATIVE)
[2016-09-03 18:11] LABS: URINE BACTERIA NONE SEEN /hpf (NONE SEEN); URINE BLOOD NEGATIVE (NEGATIVE); URINE EPITHELIAL CELLS NONE SEEN /lpf (FEW); URINE PH 6.5; URINE PROTEIN NEGATIVE (NEGATIVE); URINE RBC NONE SEEN /hpf (0-5); URINE UROBILINOGEN 0.2 E.U./dL (0.2 - 1.0); URINE WBC NONE SEEN /hpf (0-5)
[2016-09-03] MEDS: Atorvastatin Calcium 10 MG TAB PO SCH (21:23)
[2016-09-04] MEDS: Ipratropium Neb 0.5 mg/2.5 mL UD HHN SCH ×4 (02:49→19:21)
[2016-09-04] MEDS: D5-0.45NS 1,000 ML IV SCH (05:57)
[2016-09-04] MEDS: methylPREDNISolone SS 40 mg Vial IVP SCH ×3 (05:58→17:16)
[2016-09-04 06:53] LABS: HEMATOCRIT 33.3 % (39.0-49.0); HEMOGLOBIN 11.5 gm/dL (12.6-17.4); MEAN CELL VOLUME 85.8 fl (80-99); MEAN CORPUSCULAR HEMOGLOBIN 29.6 pg (27.0-31.0); MEAN CORPUSCULAR HGB CONC 34.5 pg (28.0-36.0); MEAN PLATELET VOLUME 7.7 fl; PLATELET COUNT 286 Th/cmm (150-400); RED BLOOD COUNT 3.89 Mil/cmm (3.80-5.80); RED CELL DISTRIBUTION WIDTH 13.9 % (11.5-20.0); WHITE BLOOD COUNT 13.7 Th/cmm (4.8-10.8)
[2016-09-04 07:15] LABS: ANION GAP 7.8 (7.0-16.0); BUN - UREA NITROGEN 33 mg/dL (7-25); CALCIUM SERUM 8.6 mg/dL (8.6-10.3); CARBON DIOXIDE 26.4 mEq/L (21.0-31.0); CHLORIDE 112 mEq/L (98-107); CREATININE - SERUM 0.6 mg/dL (0.7-1.3); GLUCOSE 135 mg/dL (70-105); POTASSIUM SERUM 4.2 mEq/L (3.5-5.1); SODIUM SERUM 142 mEq/L (136-145)
[2016-09-04] MEDS: Albuterol Nebulizer 2.5mg/3mL HHN SCH ×3 (07:59→19:22)
[2016-09-04] MEDS: Budesonide 0.5 Mg/2 mL Ud HHN SCH ×2 (07:59→19:22)
[2016-09-04] MEDS: Aspirin 81mg Chewable Tab PO SCH (08:54)
[2016-09-04 09:02] LABS: BAND NEUTROPHILE 2 % (0-10); EOSINOPHIL 1 % (0-5); NEUTROPHILS 96 % (40-80); TOTAL CELLS COUNTED 100
[2016-09-04 09:03] LABS: PLATELET ESTIMATE ADEQUATE (NORMAL); PLATELET MORPHOLOGY NORMAL (NORMAL)
--- NOTE | 2016-09-04 12:00 | Diagnostic Imaging Report ---
CT Chest without IV contrast HISTORY: Mass COMPARISON: Chest on 06/23/2016 and chest x-ray on 09/02/2016 Technique: Axial images were obtained from the base of the neck to the upper abdomen without IV contrast. Reconstructions were made. Total DLP to 14, CTD I 5.9 Findings: Exam is limited due to motion. There is evidence of previous median sternotomy with postsurgical changes in throughout the mediastinum. Multiple hypodense right thyroid nodules are noted the largest measuring 9 mm. Small right thyroid calcifications are noted. Assessment of the mediastinum is limited due to lack of IV contrast. Few borderline prominent mediastinal lymph nodes are noted. Cardiomegaly is noted. No evidence of a pericardial effusion. Tortuous aorta is noted. There is marked elevation of the left hemidiaphragm with small left effusion and left lower lung zone consolidation. Additional atelectatic changes hypoventilatory changes are seen throughout the lungs. Small right pleural effusion is again noted. Degenerative changes of the spine are noted. Assessment of the upper abdomen demonstrates right renal cysts and nonspecific bilateral perinephric inflammatory changes. IMPRESSION: Persistent elevation of the left hemidiaphragm with volume loss of the left lung and small left effusion and left basal passive atelectasis and consolidation. These findings are not significantly changed since the previous examination. Again seen is obscuration of the left lower lobe bronchus. Postobstructive pneumonia and possible underlying neoplastic process again cannot be excluded. Small right effusion have additional hypoventilatory and atelectatic lung changes Evidence of prior median sternotomy Cardiomegaly and diffuse atherosclerotic vascular disease. Right renal cysts. Hypodense right thyroid nodules. Ultrasound would further clarify.
--- NOTE | 2016-09-04 12:01 | Internal Medicine Prog Note ---
Internal Medicine Subjective - Subjective Service Date: 09/04/16 Patient seen and examined:: with staff Patient is:: awake Per staff patient is:: no adverse event Internal Medicine Objective - Results Result Diagrams: 09/04/16 06:45 09/04/16 06:45 Recent Labs: Laboratory Last Values WBC 13.7 Th/cmm (4.8-10.8) H 09/04/16 06:45 RBC 3.89 Mil/cmm (3.80-5.80) 09/04/16 06:45 Hgb 11.5 gm/dL (12.6-17.4) L 09/04/16 06:45 Hct 33.3 % (39.0-49.0) L 09/04/16 06:45 MCV 85.8 fl (80-99) 09/04/16 06:45 MCH 29.6 pg (27.0-31.0) 09/04/16 06:45 MCHC Differential 34.5 pg (28.0-36.0) 09/04/16 06:45 RDW 13.9 % (11.5-20.0) 09/04/16 06:45 Plt Count 286 Th/cmm (150-400) 09/04/16 06:45 MPV 7.7 fl 09/04/16 06:45 Band Neutrophils % 2 % (0-10) 09/04/16 06:45 Neutrophils (Manual) 96 % (40-80) H 09/04/16 06:45 Lymphocytes 1 % (20-50) L 09/04/16 06:45 Monocytes 1 % (2-10) L 09/03/16 09:20 Eosinophils 1 % (0-5) 09/04/16 06:45 Platelet Estimate ADEQUATE (NORMAL) 09/04/16 06:45 Platelet Morphology NORMAL (NORMAL) 09/04/16 06:45 Anisocytosis 1+ 09/02/16 06:30 RBC Morph Micro Appear NORMAL (NORMAL) 09/04/16 06:45 PT 9.8 SECONDS (9.5-11.5) 08/31/16 08:20 INR 0.99 (0.5-1.4) 08/31/16 08:20 Specimen Source Arterial 08/31/16 07:36 Sample Site Right Radial 08/31/16 07:36 pH 7.42 (7.35-7.45) 08/31/16 07:36 pCO2 42.0 mmHg (35.0-45.0) 08/31/16 07:36 pO2 53.0 mmHg (80.0-100.0) L 08/31/16 07:36 HCO3 27.2 mmol/L (20.0-26.0) H 08/31/16 07:36 Base Excess 2.4 mmol/L (-3.0-3.0) 08/31/16 07:36 O2 Saturation 88.0 % (92.0-100.0) L 08/31/16 07:36 Praveen Test YES 08/31/16 07:36 Vent Rate NA 08/31/16 07:36 Inspired O2 21 08/31/16 07:36 Tidal Volume NA 08/31/16 07:36 PEEP NA 08/31/16 07:36 Pressure (ins/psv/peep) NA 08/31/16 07:36 Critical Value SH 08/31/16 07:36 Sodium 142 mEq/L (136-145) 09/04/16 06:45 Potassium 4.2 mEq/L (3.5-5.1) 09/04/16 06:45 Chloride 112 mEq/L (98-107) H 09/04/16 06:45 Carbon Dioxide 26.4 mEq/L (21.0-31.0) 09/04/16 06:45 Anion Gap 7.8 (7.0-16.0) 09/04/16 06:45 BUN 33 mg/dL (7-25) H 09/04/16 06:45 Creatinine 0.6 mg/dL (0.7-1.3) L 09/04/16 06:45 Est GFR ( Amer) [place] 09/04/16 06:45 Est GFR (Non-Af Amer) [facility] 09/04/16 06:45 BUN/Creatinine Ratio 55.0 09/04/16 06:45 Glucose 135 mg/dL (70-105) H 09/04/16 06:45 Hemoglobin A1c % 5.8 % (4.0-6.0) 09/03/16 09:20 Whole Bld Lactic Acid 1.32 mmol/L (0.60-1.99) 08/31/16 08:20 Calcium 8.6 mg/dL (8.6-10.3) 09/04/16 06:45 Total Bilirubin 0.5 mg/dL (0.3-1.0) 08/31/16 08:20 AST 13 U/L (13-39) 08/31/16 08:20 ALT 14 U/L (7-52) 08/31/16 08:20 Alkaline Phosphatase 77 U/L (34-104) 08/31/16 08:20 Troponin I 0.02 ng/mL (0.01-0.05) 08/31/16 08:20 Total Protein 6.9 gm/dL (6.0-8.3) 08/31/16 08:20 Albumin 3.6 gm/dL (4.2-5.5) L 08/31/16 08:20 Globulin 3.3 gm/dL 08/31/16 08:20 Albumin/Globulin Ratio 1.1 (1.0-1.8) 08/31/16 08:20 TSH 0.39 uIU/ml (0.34-5.60) 08/31/16 08:20 Urine Source CLEAN C 09/03/16 17:00 Urine Color YELLOW 09/03/16 17:00 Urine Clarity CLEAR (CLEAR) 09/03/16 17:00 Urine pH 6.5 09/03/16 17:00 Ur Specific [place] 1.015 (1.005-1.030) 09/03/16 17:00 Urine Protein NEGATIVE mg/dL (NEGATIVE) 09/03/16 17:00 Urine Glucose (UA) NEGATIVE mg/dL (NEGATIVE) 09/03/16 17:00 Urine Ketones NEGATIVE mg/dL (NEGATIVE) 09/03/16 17:00 Urine Blood NEGATIVE (NEGATIVE) 09/03/16 17:00 Urine Nitrate NEGATIVE (NEGATIVE) 09/03/16 17:00 Urine Bilirubin NEGATIVE (NEGATIVE) 09/03/16 17:00 Urine Urobilinogen 0.2 E.U./dL (0.2 - 1.0) 09/03/16 17:00 Ur Leukocyte Esterase NEGATIVE (NEGATIVE) 09/03/16 17:00 Urine RBC NONE SEEN /hpf (0-5) 09/03/16 17:00 Urine WBC NONE SEEN /hpf (0-5) 09/03/16 17:00 Ur Epithelial Cells NONE SEEN /lpf (FEW) 09/03/16 17:00 Urine Bacteria NONE SEEN /hpf (NONE SEEN) 09/03/16 17:00 Vancomycin Trough 17.3 ug/mL (10-20) 09/03/16 09:20 RPR NONREACTIVE (NONREACTIVE) 08/31/16 08:20 - Physical Exam Vitals and I&O: Vital Signs Temp 97.5 F 09/04/16 11:00 Pulse 63 09/04/16 11:00 Resp 18 09/04/16 11:00 BP 136/73 09/04/16 11:00 Pulse Ox 94 09/04/16 11:00 Intake & Output 09/03/16 09/04/16 09/04/16 18:59 06:59 18:59 Intake Total 300 1350 Balance 300 1350 Intake: Intake, IV Amount 300 1300 Cefepime 1 gm In Dextrose 50 50 5% 50 ml @ 100 mls/hr IV Q12H [facility] Rx#:[id number] D5-0.45NS 1,000 ml @ 60 1000 mls/hr IV .[id number] [facility] Rx #:[id number] Vancomycin HCl 1.25 gm In 250 250 Sodium Chloride 0.9% 250 ml @ 165 mls/hr IV Q12H [facility] Rx#:[id number] Oral 50 Other: # Voids 3 Active Medications: Current Medications Acetaminophen (Tylenol) 650 mg PO Q4HR PRN PRN Reason: Pain or Fever >101 Stop: 10/30/16 09:31 Acetylcysteine (Mucomyst 20%) 2 ml HHN Q6HRT [facility] Stop: 10/30/16 18:59 Last Admin: 09/04/16 07:59 Dose: 2 ml Albuterol Sulfate (Albuterol 2.5mg/3ml Neb Ud) 2.5 mg HHN QIDRT [facility] Stop: 10/30/16 12:59 Last Admin: 09/04/16 07:59 Dose: 2.5 mg Amiodarone HCl (Cordarone) 200 mg PO DAILY [facility] Stop: 10/31/16 08:59 Last Admin: 09/04/16 08:54 Dose: 200 mg Aspirin (Aspirin Chewable) 81 mg PO DAILY [facility] Stop: 10/31/16 08:59 Last Admin: 09/04/16 08:54 Dose: 81 mg Atorvastatin Calcium (Lipitor) 10 mg PO HS [facility] PRN Reason: Protocol Stop: 10/30/16 20:59 Last Admin: 09/03/16 21:23 Dose: 10 mg Bisacodyl (Dulcolax 10 Mg Supp) 10 mg RC Q72H PRN PRN Reason: Constipation Stop: 10/30/16 09:31 Budesonide (Pulmicort) 0.5 mg HHN Q12HRT [facility] Stop: 10/30/16 09:44 Last Admin: 09/04/16 07:59 Dose: 0.5 mg Buspirone HCl (Buspar) 10 mg PO TID [facility] Stop: 10/30/16 13:59 Last Admin: 09/04/16 08:54 Dose: 10 mg Donepezil HCl (Aricept) 10 mg PO HS [facility] Stop: 10/30/16 20:59 Last Admin: 09/03/16 21:23 Dose: 10 mg Guaifenesin (Robitussin) 200 mg PO Q4HR PRN PRN Reason: Cough or Congestion Stop: 10/30/16 09:34 Last Admin: 09/01/16 08:23 Dose: 200 mg Cefepime HCl 1 gm/ Dextrose 50 mls @ 100 mls/hr IV Q12H [facility] Stop: 10/30/16 09:44 Last Admin: 09/04/16 08:59 Dose: 100 mls/hr Dextrose/Sodium Chloride (D5-0.45ns) 1,000 mls @ 60 mls/hr IV .[id number] [facility] Stop: 10/30/16 09:44 Last Admin: 09/04/16 05:57 Dose: 60 mls/hr Vancomycin HCl 1.25 gm/ Sodium (Chloride) 250 mls @ 165 mls/hr IV Q12H [facility] Stop: 11/01/16 21:59 Last Admin: 09/04/16 10:07 Dose: 165 mls/hr Ipratropium [place] (Atrovent Neb 0.5mg/2.5ml) 0.5 mg HHN Q6HRT [facility] Stop: 11/02/16 00:59 Last Admin: 09/04/16 07:59 Dose: 0.5 mg Magnesium Hydroxide (Milk Of Magnesia) 30 ml PO HS PRN PRN Reason: Constipation Stop: 10/30/16 09:31 Methylprednisolone Sodium Succinate (Solu-Medrol) 40 mg IVP Q6HR [facility] Stop: 11/02/16 00:00 Last Admin: 09/04/16 11:25 Dose: 40 mg Miscellaneous (Vancomycin Iv Per Pharmacy) 1 ea [facility] PRN [facility] Stop: 10/30/16 09:44 Montelukast Sodium (Singulair) 10 mg PO HS [facility] Stop: 10/30/16 20:59 Last Admin: 09/03/16 21:23 Dose: 10 mg Olanzapine (Zyprexa) 15 mg PO DAILY [facility] PRN Reason: Protocol Stop: 10/31/16 08:59 Last Admin: 09/04/16 08:54 Dose: 15 mg Ondansetron HCl (Zofran) 4 mg IV Q8H PRN PRN Reason: Nausea / Vomiting Stop: 10/30/16 09:34 Sodium Phosphate (Fleet Enema) 135 ml RC PRN PRN PRN Reason: Constipation Stop: 10/30/16 09:31 Tamsulosin HCl (Flomax) 0.4 mg PO [facility] Stop: 10/30/16 20:59 Last Admin: 09/03/16 21:23 Dose: 0.4 mg General: weak, alert HEENT: NC/AT Neck: Supple Lungs: CTAB, ronchi Cardiovascular: RRR, Normal S1, Normal S2, without murmur Abdomen: soft non-tender, non-distended, positive bowel sound - Procedures Procedures: Procedures Procedure Code Date ASSISTANCE WITH RESPIRATORY VENTILATION, <24 HRS, CPAP 1C52047 06/29/16 EXCISION OF DUODENUM, ENDO, DIAGN [id number] 07/18/16 EXCISION OF ESOPHAGUS, ENDO, DIAGN [id number] 07/18/16 EXCISION OF STOMACH, ENDO, DIAGN [id number] 07/18/16 POS AIRWAY PRESSURE CPAP 91210 06/29/16 Internal Medicine Assmt/Plan - Assessment Assessment: Pneumonia Copd exacerbation Respiratory Failure htn dyslipidemia dementia - Plan Plan: cbc/bmp in am bronchodilators continue ivabx supplemental o2 cpm Nutritional Asmnt/Malnutr-PDOC - Dietary Evaluation Malnutrition Findings (Please click <Entered> for more info): Nutritional Asmnt/Malnutrition Start: 09/02/16 14: 33 Text: Status: Complete Freq: Document 09/02/16 14:34 GSUN (Rec: 09/02/16 14:52 GSUN [email or web address]) Nutritional Asmnt/Malnutrition Patient General Information Nutritional Screening High Risk Screening Diagnosis Pneumonia, acute respiratory failure, COPD exacerbation Pertinent Medical Hx/Surgical Hx HTN, CAD, asthma, COPD, dyslipidemia, PUD, GERD, dementia Subjective Information 75yo M from SNF. Pt was alert, appeared anxious during visit . Pt was admitted here once in past July and twice in past June. Pt was ordered pureed + nectar thick during previous two stays. Most recent swallow eval 06/26/16 ST recommended [facility] soft + nectar thick. Discussed with pt regarding diet texture and tolerance, pt denied difficulties chewing/ swallowing and expressed preference for current [facility] soft ground. Encouraged pt to inform RN if any diet texture intolerance noted, pt understood. PO intake 100% all 3 meals yesterday 09/01. Unable to lower pt's head for bedscale due to pt appeared anxious. Current Diet Order/ Nutrition Support [facility] soft ground + nectar thick Pertinent Medications Dulcolax, D5, MOM, Solu-Medrol , Vancomycin, Zofran, Fleet Enema Pertinent Labs Reviewed. Glucose 105, 143, 145 Nutritional Hx/Data Height 5 ft 8 in Height (Calculated Centimeters) 172.7 Current Weight (lbs) 162 lb Weight (Calculated Kilograms) 73.5 Weight (Calculated Grams) 57016.0 Usual body Weight (lbs) 161 [place] Body Weight 154lb ([place]) Recent Weight Change No Weight Status Approriate GI Symptoms Food Allergies No Cultural/Ethnic/Mu-Ism Belief Unknown. Usual diet at home Unknown. Skin Integrity/Comment: Ruddy 11. Skin intact. Current %PO Good (75-100%) Estimated Nutritional Goals BEE in Kcals: Using Current wt Calories/Kcals/Kg 30-35kcal/kg Kcals Calculated 2205-2573kcal Protein: Using Current wt Protein g/k.2-1.4g/kg Protein Calculated 88-103g/kg Fluid: ml 2205-2573ml (1ml/kcal) Nutritional Problem 1. Problem Problem Increased kcal and prot needs related to Etiology hypermetabolic stated aeb Signs/Symptoms: pneumonia, COPD exacerbation, acute respiratory failure Intervention/Recommendation Comments 1. Continue with mech soft ground + necatar thick diet ( refer to subjective information in nutrition assessment). Continue to monitor and supervise during meal time. Expected Outcomes/Goals Expected Outcomes/Goals 1. PO intake to meet at least 75% of estimated nutritional needs. Physician Parameters for PEM Serum Albumin (g/dl) 3.5 - 5.0 (Normal)
[2016-09-04] MEDS: cefTRIAXone 2 GM in Sodium Chloride 0.9% 100 ML IV SCH (16:22)
[2016-09-04] MEDS: Atorvastatin Calcium 10 MG TAB PO SCH (20:55)
[2016-09-05] MEDS: Ipratropium Neb 0.5 mg/2.5 mL UD HHN SCH ×4 (00:47→19:11)
[2016-09-05] MEDS: methylPREDNISolone SS 40 mg Vial IVP SCH ×4 (06:18→21:12)
[2016-09-05 07:07] LABS: HEMATOCRIT 34.5 % (39.0-49.0); HEMOGLOBIN 12.1 gm/dL (12.6-17.4); MEAN CORPUSCULAR HEMOGLOBIN 30.2 pg (27.0-31.0); MEAN CORPUSCULAR HGB CONC 35.1 pg (28.0-36.0); MEAN PLATELET VOLUME 8.5 fl; RED BLOOD COUNT 4.01 Mil/cmm (3.80-5.80); RED CELL DISTRIBUTION WIDTH 13.7 % (11.5-20.0)
[2016-09-05 07:30] LABS: ANION GAP 13.7 (7.0-16.0); BUN - UREA NITROGEN 37 mg/dL (7-25); BUN/CREATININE RATIO 52.9; CALCIUM SERUM 8.4 mg/dL (8.6-10.3); CARBON DIOXIDE 19.8 mEq/L (21.0-31.0); CHLORIDE 113 mEq/L (98-107); CREATININE - SERUM 0.7 mg/dL (0.7-1.3); GLUCOSE 135 mg/dL (70-105); POTASSIUM SERUM 4.5 mEq/L (3.5-5.1); SODIUM SERUM 142 mEq/L (136-145)
[2016-09-05 07:33] LABS: PLATELET COUNT 192 Th/cmm (150-400)
[2016-09-05] MEDS: Budesonide 0.5 Mg/2 mL Ud HHN SCH ×2 (07:39→19:12)
[2016-09-05] MEDS: Albuterol Nebulizer 2.5mg/3mL HHN SCH ×3 (07:39→19:11)
[2016-09-05 08:00] LABS: BAND NEUTROPHILE 7 % (0-10); NEUTROPHILS 89 % (40-80); PLATELET ESTIMATE ADEQUATE (NORMAL); PLATELET MORPHOLOGY NORMAL (NORMAL); TOTAL CELLS COUNTED 100
[2016-09-05] MEDS: Aspirin 81mg Chewable Tab PO SCH (09:05)
--- NOTE | 2016-09-05 12:36 | Internal Medicine Prog Note ---
Internal Medicine Subjective - Subjective Patient seen and examined:: with staff, chart reviewed Patient is:: awake, interactive, in bed Patient Complaints of:: congestion Per staff patient is:: confused Internal Medicine Objective - Results Result Diagrams: 09/05/16 06:40 09/05/16 06:40 Recent Labs: Laboratory Last Values WBC 16.0 Th/cmm (4.8-10.8) H 09/05/16 06:40 RBC 4.01 Mil/cmm (3.80-5.80) 09/05/16 06:40 Hgb 12.1 gm/dL (12.6-17.4) L 09/05/16 06:40 Hct 34.5 % (39.0-49.0) L 09/05/16 06:40 MCV 86.0 fl (80-99) 09/05/16 06:40 MCH 30.2 pg (27.0-31.0) 09/05/16 06:40 MCHC Differential 35.1 pg (28.0-36.0) 09/05/16 06:40 RDW 13.7 % (11.5-20.0) 09/05/16 06:40 Plt Count 192 Th/cmm (150-400) D 09/05/16 06:40 MPV 8.5 fl 09/05/16 06:40 Band Neutrophils % 7 % (0-10) 09/05/16 06:40 Neutrophils (Manual) 89 % (40-80) H 09/05/16 06:40 Lymphocytes 4 % (20-50) L 09/05/16 06:40 Monocytes 1 % (2-10) L 09/03/16 09:20 Eosinophils 1 % (0-5) 09/04/16 06:45 Platelet Estimate ADEQUATE (NORMAL) 09/05/16 06:40 Platelet Morphology NORMAL (NORMAL) 09/05/16 06:40 Anisocytosis 1+ 09/02/16 06:30 RBC Morph Micro Appear NORMAL (NORMAL) 09/05/16 06:40 PT 9.8 SECONDS (9.5-11.5) 08/31/16 08:20 INR 0.99 (0.5-1.4) 08/31/16 08:20 Specimen Source Arterial 08/31/16 07:36 Sample Site Right Radial 08/31/16 07:36 pH 7.42 (7.35-7.45) 08/31/16 07:36 pCO2 42.0 mmHg (35.0-45.0) 08/31/16 07:36 pO2 53.0 mmHg (80.0-100.0) L 08/31/16 07:36 HCO3 27.2 mmol/L (20.0-26.0) H 08/31/16 07:36 Base Excess 2.4 mmol/L (-3.0-3.0) 08/31/16 07:36 O2 Saturation 88.0 % (92.0-100.0) L 08/31/16 07:36 Praveen Test YES 08/31/16 07:36 Vent Rate NA 08/31/16 07:36 Inspired O2 21 08/31/16 07:36 Tidal Volume NA 08/31/16 07:36 PEEP NA 08/31/16 07:36 Pressure (ins/psv/peep) NA 08/31/16 07:36 Critical Value SH 08/31/16 07:36 Sodium 142 mEq/L (136-145) 09/05/16 06:40 Potassium 4.5 mEq/L (3.5-5.1) 09/05/16 06:40 Chloride 113 mEq/L (98-107) H 09/05/16 06:40 Carbon Dioxide 19.8 mEq/L (21.0-31.0) L 09/05/16 06:40 Anion Gap 13.7 (7.0-16.0) 09/05/16 06:40 BUN 37 mg/dL (7-25) H 09/05/16 06:40 Creatinine 0.7 mg/dL (0.7-1.3) 09/05/16 06:40 Est GFR ( Amer) TNP 09/05/16 06:40 Est GFR (Non-Af Amer) TNP 09/05/16 06:40 BUN/Creatinine Ratio 52.9 09/05/16 06:40 Glucose 135 mg/dL (70-105) H 09/05/16 06:40 Hemoglobin A1c % 5.8 % (4.0-6.0) 09/03/16 09:20 Whole Bld Lactic Acid 1.32 mmol/L (0.60-1.99) 08/31/16 08:20 Calcium 8.4 mg/dL (8.6-10.3) L 09/05/16 06:40 Total Bilirubin 0.5 mg/dL (0.3-1.0) 08/31/16 08:20 AST 13 U/L (13-39) 08/31/16 08:20 ALT 14 U/L (7-52) 08/31/16 08:20 Alkaline Phosphatase 77 U/L (34-104) 08/31/16 08:20 Troponin I 0.02 ng/mL (0.01-0.05) 08/31/16 08:20 Total Protein 6.9 gm/dL (6.0-8.3) 08/31/16 08:20 Albumin 3.6 gm/dL (4.2-5.5) L 08/31/16 08:20 Globulin 3.3 gm/dL 08/31/16 08:20 Albumin/Globulin Ratio 1.1 (1.0-1.8) 08/31/16 08:20 TSH 0.39 uIU/ml (0.34-5.60) 08/31/16 08:20 Urine Source CLEAN C 09/03/16 17:00 Urine Color YELLOW 09/03/16 17:00 Urine Clarity CLEAR (CLEAR) 09/03/16 17:00 Urine pH 6.5 09/03/16 17:00 Ur Specific [place] 1.015 (1.005-1.030) 09/03/16 17:00 Urine Protein NEGATIVE mg/dL (NEGATIVE) 09/03/16 17:00 Urine Glucose (UA) NEGATIVE mg/dL (NEGATIVE) 09/03/16 17:00 Urine Ketones NEGATIVE mg/dL (NEGATIVE) 09/03/16 17:00 Urine Blood NEGATIVE (NEGATIVE) 09/03/16 17:00 Urine Nitrate NEGATIVE (NEGATIVE) 09/03/16 17:00 Urine Bilirubin NEGATIVE (NEGATIVE) 09/03/16 17:00 Urine Urobilinogen 0.2 E.U./dL (0.2 - 1.0) 09/03/16 17:00 Ur Leukocyte Esterase NEGATIVE (NEGATIVE) 09/03/16 17:00 Urine RBC NONE SEEN /hpf (0-5) 09/03/16 17:00 Urine WBC NONE SEEN /hpf (0-5) 09/03/16 17:00 Ur Epithelial Cells NONE SEEN /lpf (FEW) 09/03/16 17:00 Urine Bacteria NONE SEEN /hpf (NONE SEEN) 09/03/16 17:00 Vancomycin Trough 17.3 ug/mL (10-20) 09/03/16 09:20 RPR NONREACTIVE (NONREACTIVE) 08/31/16 08:20 - Physical Exam Vitals and I&O: Vital Signs Temp 98.2 F 09/05/16 11:42 Pulse 65 09/05/16 11:42 Resp 18 09/05/16 11:42 BP 113/49 09/05/16 11:42 Pulse Ox 93 09/05/16 11:42 Intake & Output 09/04/16 09/05/16 09/05/16 18:59 06:59 18:59 Intake Total 1450 450 Output Total 300 Balance 1150 450 Intake: Intake, IV Amount 250 250 Vancomycin HCl 1.25 gm In 250 250 Sodium Chloride 0.9% 250 ml @ 165 mls/hr IV Q12H [facility] Rx#:[id number] Oral 1200 200 Output: Urine 300 Other: # Voids 2 Active Medications: Current Medications Acetaminophen (Tylenol) 650 mg PO Q4HR PRN PRN Reason: Pain or Fever >101 Stop: 10/30/16 09:31 Acetylcysteine (Mucomyst 20%) 2 ml HHN Q6HRT [facility] Stop: 10/30/16 18:59 Last Admin: 09/05/16 07:40 Dose: 2 ml Albuterol Sulfate (Albuterol 2.5mg/3ml Neb Ud) 2.5 mg HHN QIDRT [facility] Stop: 10/30/16 12:59 Last Admin: 09/05/16 07:39 Dose: 2.5 mg Amiodarone HCl (Cordarone) 200 mg PO DAILY [facility] Stop: 10/31/16 08:59 Last Admin: 09/05/16 09:05 Dose: Not Given Aspirin (Aspirin Chewable) 81 mg PO DAILY [facility] Stop: 10/31/16 08:59 Last Admin: 09/05/16 09:05 Dose: 81 mg Atorvastatin Calcium (Lipitor) 10 mg PO HS [facility] PRN Reason: Protocol Stop: 10/30/16 20:59 Last Admin: 09/04/16 20:55 Dose: 10 mg Bisacodyl (Dulcolax 10 Mg Supp) 10 mg RC Q72H PRN PRN Reason: Constipation Stop: 10/30/16 09:31 Budesonide (Pulmicort) 0.5 mg HHN Q12HRT [facility] Stop: 10/30/16 09:44 Last Admin: 09/05/16 07:39 Dose: 0.5 mg Buspirone HCl (Buspar) 10 mg PO TID [facility] Stop: 10/30/16 13:59 Last Admin: 09/05/16 09:04 Dose: 10 mg Donepezil HCl (Aricept) 10 mg PO HS [facility] Stop: 10/30/16 20:59 Last Admin: 09/04/16 20:52 Dose: 10 mg Guaifenesin (Robitussin) 200 mg PO Q4HR PRN PRN Reason: Cough or Congestion Stop: 10/30/16 09:34 Last Admin: 09/01/16 08:23 Dose: 200 mg Vancomycin HCl 1.25 gm/ Sodium (Chloride) 250 mls @ 165 mls/hr IV Q12H [facility] Stop: 11/01/16 21:59 Last Admin: 09/05/16 10:15 Dose: 165 mls/hr Ceftriaxone Sodium 2 gm/ (Sodium Chloride) 100 mls @ 100 mls/hr IV Q24H [facility] Stop: 11/03/16 13:59 Last Admin: 09/04/16 16:22 Dose: 100 mls/hr Ipratropium [place] (Atrovent Neb 0.5mg/2.5ml) 0.5 mg HHN Q6HRT [facility] Stop: 11/02/16 00:59 Last Admin: 09/05/16 07:39 Dose: 0.5 mg Magnesium Hydroxide (Milk Of Magnesia) 30 ml PO HS PRN PRN Reason: Constipation Stop: 10/30/16 09:31 Methylprednisolone Sodium Succinate (Solu-Medrol) 40 mg IVP Q12HR [facility] Stop: 11/04/16 20:59 Miscellaneous (Vancomycin Iv Per Pharmacy) 1 ea MC PRN [facility] Stop: 10/30/16 09:44 Montelukast Sodium (Singulair) 10 mg PO HS [facility] Stop: 10/30/16 20:59 Last Admin: 09/04/16 20:52 Dose: 10 mg Olanzapine (Zyprexa) 15 mg PO DAILY [facility] PRN Reason: Protocol Stop: 10/31/16 08:59 Last Admin: 09/05/16 09:04 Dose: 15 mg Ondansetron HCl (Zofran) 4 mg IV Q8H PRN PRN Reason: Nausea / Vomiting Stop: 10/30/16 09:34 Sodium Phosphate (Fleet Enema) 135 ml RC PRN PRN PRN Reason: Constipation Stop: 10/30/16 09:31 Tamsulosin HCl (Flomax) 0.4 mg PO HS [facility] Stop: 10/30/16 20:59 Last Admin: 09/04/16 20:52 Dose: 0.4 mg General: lethargic, demented HEENT: NC/AT, PERRLA Neck: Supple, No JVD Lungs: congested, rales, ronchi Cardiovascular: RRR, Normal S1, Normal S2 Abdomen: soft non-tender, globular, positive bowel sound Extremities: excoriation, contracture Neurological: no change, disorganized - Procedures Procedures: Procedures Procedure Code Date ASSISTANCE WITH RESPIRATORY VENTILATION, <24 HRS, CPAP [id number] 06/29/16 EXCISION OF DUODENUM, ENDO, DIAGN [id number] 07/18/16 EXCISION OF ESOPHAGUS, ENDO, DIAGN [id number] 07/18/16 EXCISION OF STOMACH, ENDO, DIAGN [id number] 07/18/16 POS AIRWAY PRESSURE CPAP [id number] 06/29/16 Internal Medicine Assmt/Plan - Assessment Assessment: Pneumonia acute Copd exacerbation acute Respiratory Failure htn dyslipidemia dementia debility, functional quad leukocytosis - Plan Plan: cont on iv abx will decrease iv steroid ct chest noted will confer w pulm sudhakar rn Nutritional Asmnt/Malnutr-PDOC - Dietary Evaluation Malnutrition Findings (Please click <Entered> for more info): Nutritional Asmnt/Malnutrition Start: 09/02/16 14: 33 Text: Status: Complete Freq: Document 09/02/16 14:34 GSUN (Rec: 09/02/16 14:52 GSUN [email or web address]) Nutritional Asmnt/Malnutrition Patient General Information Nutritional Screening High Risk Screening Diagnosis Pneumonia, acute respiratory failure, COPD exacerbation Pertinent Medical Hx/Surgical Hx HTN, CAD, asthma, COPD, dyslipidemia, PUD, GERD, dementia Subjective Information 75yo M from SNF. Pt was alert, appeared anxious during visit . Pt was admitted here once in past July and twice in past June. Pt was ordered pureed + nectar thick during previous two stays. Most recent swallow eval 06/26/16 ST recommended [facility] soft + nectar thick. Discussed with pt regarding diet texture and tolerance, pt denied difficulties chewing/ swallowing and expressed preference for current [facility] soft ground. Encouraged pt to inform RN if any diet texture intolerance noted, pt understood. PO intake 100% all 3 meals yesterday 09/01. Unable to lower pt's head for bedscale due to pt appeared anxious. Current Diet Order/ Nutrition Support [facility] soft ground + nectar thick Pertinent Medications Dulcolax, D5, MOM, Solu-Medrol , Vancomycin, Zofran, Fleet Enema Pertinent Labs Reviewed. Glucose 105, 143, 145 Nutritional Hx/Data Height 1.73 m Height (Calculated Centimeters) 172.7 Current Weight (lbs) 73.482 kg Weight (Calculated Kilograms) 73.5 Weight (Calculated Grams) 39431.0 Usual body Weight (lbs) 161 [place] Body Weight 154lb ([place]) Recent Weight Change No Weight Status Approriate GI Symptoms Food Allergies No Cultural/Ethnic/Scientologist Belief Unknown. Usual diet at home Unknown. Skin Integrity/Comment: [place]. Skin intact. Current %PO Good (75-100%) Estimated Nutritional Goals BEE in Kcals: Using Current wt Calories/Kcals/Kg 30-35kcal/kg Kcals Calculated 2205-2573kcal Protein: Using Current wt Protein g/k.2-1.4g/kg Protein Calculated 88-103g/kg Fluid: ml 2205-2573ml (1ml/kcal) Nutritional Problem 1. Problem Problem Increased kcal and prot needs related to Etiology hypermetabolic stated aeb Signs/Symptoms: pneumonia, COPD exacerbation, acute respiratory failure Intervention/Recommendation Comments 1. Continue with [facility] soft ground + necatar thick diet ( refer to subjective information in nutrition assessment). Continue to monitor and supervise during meal time. Expected Outcomes/Goals Expected Outcomes/Goals 1. PO intake to meet at least 75% of estimated nutritional needs. Physician Parameters for PEM Serum Albumin (g/dl) 3.5 - 5.0 (Normal)
[2016-09-05] MEDS: cefTRIAXone 2 GM in Sodium Chloride 0.9% 100 ML IV SCH (14:16)
[2016-09-05] MEDS: Atorvastatin Calcium 10 MG TAB PO SCH (21:14)
[2016-09-06] MEDS: Ipratropium Neb 0.5 mg/2.5 mL UD HHN SCH ×4 (01:01→19:13)
[2016-09-06 06:54] LABS: HEMATOCRIT 36.1 % (39.0-49.0); HEMOGLOBIN 12.4 gm/dL (12.6-17.4); MEAN CELL VOLUME 85.6 fl (80-99); MEAN CORPUSCULAR HEMOGLOBIN 29.4 pg (27.0-31.0); MEAN CORPUSCULAR HGB CONC 34.4 pg (28.0-36.0); MEAN PLATELET VOLUME 8.1 fl; RED BLOOD COUNT 4.22 Mil/cmm (3.80-5.80)
[2016-09-06 06:56] LABS: ALKALINE PHOSPHATASE 60 U/L (34-104); BILIRUBIN,TOTAL 0.3 mg/dL (0.3-1.0); BUN - UREA NITROGEN 39 mg/dL (7-25); BUN/CREATININE RATIO 55.7; CALCIUM SERUM 8.5 mg/dL (8.6-10.3); CARBON DIOXIDE 26.7 mEq/L (21.0-31.0); CHLORIDE 110 mEq/L (98-107); CREATININE - SERUM 0.7 mg/dL (0.7-1.3); GLUCOSE 166 mg/dL (70-105); MAGNESIUM 2.2 mg/dL (1.9-2.7); POTASSIUM SERUM 3.7 mEq/L (3.5-5.1); SGOT 12 U/L (13-39); SGPT/ALT 53 U/L (7-52); SODIUM SERUM 144 mEq/L (136-145)
[2016-09-06 07:28] LABS: PLATELET COUNT 302 Th/cmm (150-400); WHITE BLOOD COUNT 20.9 Th/cmm (4.8-10.8)
[2016-09-06] MEDS: Albuterol Nebulizer 2.5mg/3mL HHN SCH ×3 (07:34→19:12)
[2016-09-06] MEDS: Budesonide 0.5 Mg/2 mL Ud HHN SCH ×2 (07:36→19:12)
[2016-09-06 08:05] LABS: ANISOCYTOSIS 1+; BAND NEUTROPHILE 1 % (0-10); NEUTROPHILS 95 % (40-80); OVALOCYTES 1+; PLATELET ESTIMATE ADEQUATE (NORMAL); PLATELET MORPHOLOGY NORMAL (NORMAL); POIKILOCYTOSIS 1+; TOTAL CELLS COUNTED 100
[2016-09-06] MEDS: Aspirin 81mg Chewable Tab PO SCH (09:34)
[2016-09-06] MEDS: methylPREDNISolone SS 40 mg Vial IVP SCH ×2 (09:35→21:38)
--- NOTE | 2016-09-06 10:09 | Diagnostic Imaging Report ---
Portable chest x-ray HISTORY: Shortness of breath Compared to prior exam of 09/02/2016, there remains marked cardiomegaly. Density is seen in the left lower hemithorax consistent with a probable pleural effusion. Underlying pneumonia and/or atelectasis cannot be excluded. Numerous surgical clips project over the upper mediastinum and surgical suture material noted over the mid chest. IMPRESSION: 1. No significant change from 09/02/2016 as noted above.
[2016-09-06] MEDS: cefTRIAXone 2 GM in Sodium Chloride 0.9% 100 ML IV SCH (14:33)
--- NOTE | 2016-09-06 15:06 | Internal Medicine Prog Note ---
Internal Medicine Subjective - Subjective Service Date: 09/06/16 Patient seen and examined:: with staff Patient is:: awake Per staff patient is:: no adverse event Internal Medicine Objective - Results Result Diagrams: 09/06/16 05:55 09/06/16 05:55 Recent Labs: Laboratory Last Values WBC 20.9 Th/cmm (4.8-10.8) H* D 09/06/16 05:55 RBC 4.22 Mil/cmm (3.80-5.80) 09/06/16 05:55 Hgb 12.4 gm/dL (12.6-17.4) L 09/06/16 05:55 Hct 36.1 % (39.0-49.0) L 09/06/16 05:55 MCV 85.6 fl (80-99) 09/06/16 05:55 MCH 29.4 pg (27.0-31.0) 09/06/16 05:55 MCHC Differential 34.4 pg (28.0-36.0) 09/06/16 05:55 RDW 14.0 % (11.5-20.0) 09/06/16 05:55 Plt Count 302 Th/cmm (150-400) D 09/06/16 05:55 MPV 8.1 fl 09/06/16 05:55 Band Neutrophils % 1 % (0-10) 09/06/16 05:55 Neutrophils (Manual) 95 % (40-80) H 09/06/16 05:55 Lymphocytes 4 % (20-50) L 09/06/16 05:55 Monocytes 1 % (2-10) L 09/03/16 09:20 Eosinophils 1 % (0-5) 09/04/16 06:45 Platelet Estimate ADEQUATE (NORMAL) 09/06/16 05:55 Platelet Morphology NORMAL (NORMAL) 09/06/16 05:55 Poikilocytosis 1+ 09/06/16 05:55 Anisocytosis 1+ 09/06/16 05:55 Ovalocytes 1+ 09/06/16 05:55 RBC Morph Micro Appear ABNORMAL (NORMAL) 09/06/16 05:55 PT 9.8 SECONDS (9.5-11.5) 08/31/16 08:20 INR 0.99 (0.5-1.4) 08/31/16 08:20 Specimen Source Arterial 08/31/16 07:36 Sample Site Right Radial 08/31/16 07:36 pH 7.42 (7.35-7.45) 08/31/16 07:36 pCO2 42.0 mmHg (35.0-45.0) 08/31/16 07:36 pO2 53.0 mmHg (80.0-100.0) L 08/31/16 07:36 HCO3 27.2 mmol/L (20.0-26.0) H 08/31/16 07:36 Base Excess 2.4 mmol/L (-3.0-3.0) 08/31/16 07:36 O2 Saturation 88.0 % (92.0-100.0) L 08/31/16 07:36 Praveen Test YES 08/31/16 07:36 Vent Rate NA 08/31/16 07:36 Inspired O2 21 08/31/16 07:36 Tidal Volume NA 08/31/16 07:36 PEEP NA 08/31/16 07:36 Pressure (ins/psv/peep) NA 08/31/16 07:36 Critical Value SH 08/31/16 07:36 Sodium 144 mEq/L (136-145) 09/06/16 05:55 Potassium 3.7 mEq/L (3.5-5.1) 09/06/16 05:55 Chloride 110 mEq/L (98-107) H 09/06/16 05:55 Carbon Dioxide 26.7 mEq/L (21.0-31.0) 09/06/16 05:55 Anion Gap 11.0 (7.0-16.0) 09/06/16 05:55 BUN 39 mg/dL (7-25) H 09/06/16 05:55 Creatinine 0.7 mg/dL (0.7-1.3) 09/06/16 05:55 Est GFR ( Amer) TNP 09/06/16 05:55 Est GFR (Non-Af Amer) TNP 09/06/16 05:55 BUN/Creatinine Ratio 55.7 09/06/16 05:55 Glucose 166 mg/dL (70-105) H 09/06/16 05:55 Hemoglobin A1c % 5.8 % (4.0-6.0) 09/03/16 09:20 Whole Bld Lactic Acid 1.32 mmol/L (0.60-1.99) 08/31/16 08:20 Calcium 8.5 mg/dL (8.6-10.3) L 09/06/16 05:55 Magnesium 2.2 mg/dL (1.9-2.7) 09/06/16 05:55 Total Bilirubin 0.3 mg/dL (0.3-1.0) 09/06/16 05:55 AST 12 U/L (13-39) L 09/06/16 05:55 ALT 53 U/L (7-52) H 09/06/16 05:55 Alkaline Phosphatase 60 U/L (34-104) 09/06/16 05:55 Troponin I 0.02 ng/mL (0.01-0.05) 08/31/16 08:20 B-Natriuretic Peptide 129.0 pg/mL (5.0-100.0) H 09/06/16 05:55 Total Protein 5.4 gm/dL (6.0-8.3) L 09/06/16 05:55 Albumin 2.7 gm/dL (4.2-5.5) L 09/06/16 05:55 Globulin 2.7 gm/dL 09/06/16 05:55 Albumin/Globulin Ratio 1.0 (1.0-1.8) 09/06/16 05:55 TSH 0.39 uIU/ml (0.34-5.60) 08/31/16 08:20 Urine Source CLEAN C 09/03/16 17:00 Urine Color YELLOW 09/03/16 17:00 Urine Clarity CLEAR (CLEAR) 09/03/16 17:00 Urine pH 6.5 09/03/16 17:00 Ur Specific [place] 1.015 (1.005-1.030) 09/03/16 17:00 Urine Protein NEGATIVE mg/dL (NEGATIVE) 09/03/16 17:00 Urine Glucose (UA) NEGATIVE mg/dL (NEGATIVE) 09/03/16 17:00 Urine Ketones NEGATIVE mg/dL (NEGATIVE) 09/03/16 17:00 Urine Blood NEGATIVE (NEGATIVE) 09/03/16 17:00 Urine Nitrate NEGATIVE (NEGATIVE) 09/03/16 17:00 Urine Bilirubin NEGATIVE (NEGATIVE) 09/03/16 17:00 Urine Urobilinogen 0.2 E.U./dL (0.2 - 1.0) 09/03/16 17:00 Ur Leukocyte Esterase NEGATIVE (NEGATIVE) 09/03/16 17:00 Urine RBC NONE SEEN /hpf (0-5) 09/03/16 17:00 Urine WBC NONE SEEN /hpf (0-5) 09/03/16 17:00 Ur Epithelial Cells NONE SEEN /lpf (FEW) 09/03/16 17:00 Urine Bacteria NONE SEEN /hpf (NONE SEEN) 09/03/16 17:00 Vancomycin Trough 17.3 ug/mL (10-20) 09/06/16 09:00 RPR NONREACTIVE (NONREACTIVE) 08/31/16 08:20 - Physical Exam Vitals and I&O: Vital Signs Temp 97.0 F 09/06/16 09:38 Pulse 72 09/06/16 09:38 Resp 20 09/06/16 09:38 BP 150/92 09/06/16 09:38 Pulse Ox 98 09/06/16 09:38 Intake & Output 09/05/16 09/06/16 09/06/16 18:59 06:59 18:59 Intake Total 1067.5 350 Output Total 1400 Balance 1067.5 -1050 Intake: Intake, IV Amount 347.5 250 Vancomycin HCl 1.25 gm In 247.5 250 Sodium Chloride 0.9% 250 ml @ 165 mls/hr IV Q12H [facility] Rx#:[id number] cefTRIAXone 2 gm In 100 Sodium Chloride 0.9% 100 ml @ 100 mls/hr IV Q24H [facility] Rx#:[id number] Oral 720 100 Output: Urine 1400 Other: # Voids 3 # Bowel Movements 0 Active Medications: Current Medications Acetaminophen (Tylenol) 650 mg PO Q4HR PRN PRN Reason: Pain or Fever >101 Stop: 10/30/16 09:31 Acetylcysteine (Mucomyst 20%) 2 ml HHN Q6HRT [facility] Stop: 10/30/16 18:59 Last Admin: 09/06/16 14:31 Dose: 2 ml Albuterol Sulfate (Albuterol 2.5mg/3ml Neb Ud) 2.5 mg HHN QIDRT [facility] Stop: 10/30/16 12:59 Last Admin: 09/06/16 14:30 Dose: 2.5 mg Amiodarone HCl (Cordarone) 200 mg PO DAILY [facility] Stop: 10/31/16 08:59 Last Admin: 09/06/16 09:35 Dose: 200 mg Aspirin (Aspirin Chewable) 81 mg PO DAILY [facility] Stop: 10/31/16 08:59 Last Admin: 09/06/16 09:34 Dose: 81 mg Atorvastatin Calcium (Lipitor) 10 mg PO HS [facility] PRN Reason: Protocol Stop: 10/30/16 20:59 Last Admin: 09/05/16 21:14 Dose: 10 mg Bisacodyl (Dulcolax 10 Mg Supp) 10 mg RC Q72H PRN PRN Reason: Constipation Stop: 10/30/16 09:31 Budesonide (Pulmicort) 0.5 mg HHN Q12HRT [facility] Stop: 10/30/16 09:44 Last Admin: 09/06/16 07:36 Dose: 0.5 mg Buspirone HCl (Buspar) 10 mg PO TID [facility] Stop: 10/30/16 13:59 Last Admin: 09/06/16 14:33 Dose: 10 mg Donepezil HCl (Aricept) 10 mg PO HS [facility] Stop: 10/30/16 20:59 Last Admin: 09/05/16 21:21 Dose: 10 mg Guaifenesin (Mucinex) 600 mg PO Q12HR PRN PRN Reason: Cough or Congestion Stop: 11/04/16 23:19 Vancomycin HCl 1.25 gm/ Sodium (Chloride) 250 mls @ 165 mls/hr IV Q12H [facility] Stop: 11/01/16 21:59 Last Admin: 09/06/16 11:05 Dose: 165 mls/hr Ceftriaxone Sodium 2 gm/ (Sodium Chloride) 100 mls @ 100 mls/hr IV Q24H [facility] Stop: 11/03/16 13:59 Last Admin: 09/06/16 14:33 Dose: 100 mls/hr Ipratropium [place] (Atrovent Neb 0.5mg/2.5ml) 0.5 mg HHN Q6HRT [facility] Stop: 11/02/16 00:59 Last Admin: 09/06/16 14:31 Dose: 0.5 mg Magnesium Hydroxide (Milk Of Magnesia) 30 ml PO HS PRN PRN Reason: Constipation Stop: 10/30/16 09:31 Methylprednisolone Sodium Succinate (Solu-Medrol) 40 mg IVP Q12HR [facility] Stop: 11/04/16 20:59 Last Admin: 09/06/16 09:35 Dose: 40 mg Miscellaneous (Vancomycin Iv Per Pharmacy) 1 ea [facility] PRN [facility] Stop: 10/30/16 09:44 Montelukast Sodium (Singulair) 10 mg PO HS [facility] Stop: 10/30/16 20:59 Last Admin: 09/05/16 21:13 Dose: 10 mg Olanzapine (Zyprexa) 15 mg PO DAILY [facility] PRN Reason: Protocol Stop: 10/31/16 08:59 Last Admin: 09/06/16 09:34 Dose: 15 mg Ondansetron HCl (Zofran) 4 mg IV Q8H PRN PRN Reason: Nausea / Vomiting Stop: 10/30/16 09:34 Sodium Phosphate (Fleet Enema) 135 ml RC PRN PRN PRN Reason: Constipation Stop: 10/30/16 09:31 Tamsulosin HCl (Flomax) 0.4 mg PO [facility] Stop: 10/30/16 20:59 Last Admin: 09/05/16 21:14 Dose: 0.4 mg General: alert HEENT: NC/AT Neck: Supple Lungs: congested Cardiovascular: RRR, Normal S1, Normal S2, without murmur Abdomen: soft non-tender, non-distended, positive bowel sound Neurological: no change - Procedures Procedures: Procedures Procedure Code Date ASSISTANCE WITH RESPIRATORY VENTILATION, <24 HRS, CPAP 6S92790 06/29/16 EXCISION OF DUODENUM, ENDO, DIAGN 5RO15PM 07/18/16 EXCISION OF ESOPHAGUS, ENDO, DIAGN [id number] 07/18/16 EXCISION OF STOMACH, ENDO, DIAGN [id number] 07/18/16 POS AIRWAY PRESSURE CPAP 39162 06/29/16 Internal Medicine Assmt/Plan - Assessment Assessment: Pneumonia Copd exacerbation Respiratory Failure htn dyslipidemia dementia - Plan Plan: cbc/bmp in am bronchodilators continue ivabx supplemental o2 cpm Nutritional Asmnt/Malnutr-PDOC - Dietary Evaluation Malnutrition Findings (Please click <Entered> for more info): Nutritional Asmnt/Malnutrition Start: 09/02/16 14: 33 Text: Status: Complete Freq: Document 09/02/16 14:34 GSUN (Rec: 09/02/16 14:52 GSUN [email or web address]) Nutritional Asmnt/Malnutrition Patient General Information Nutritional Screening High Risk Screening Diagnosis Pneumonia, acute respiratory failure, COPD exacerbation Pertinent Medical Hx/Surgical Hx HTN, CAD, asthma, COPD, dyslipidemia, PUD, GERD, dementia Subjective Information 75yo M from SNF. Pt was alert, appeared anxious during visit . Pt was admitted here once in past July and twice in past June. Pt was ordered pureed + nectar thick during previous two stays. Most recent swallow eval 06/26/16 ST recommended mech soft + nectar thick. Discussed with pt regarding diet texture and tolerance, pt denied difficulties chewing/ swallowing and expressed preference for current mech soft ground. Encouraged pt to inform RN if any diet texture intolerance noted, pt understood. PO intake 100% all 3 meals yesterday 09/01. Unable to lower pt's head for bedscale due to pt appeared anxious. Current Diet Order/ Nutrition Support Mech soft ground + nectar thick Pertinent Medications Dulcolax, D5, MOM, Solu-Medrol , Vancomycin, Zofran, Fleet Enema Pertinent Labs Reviewed. Glucose 105, 143, 145 Nutritional Hx/Data Height 5 ft 8 in Height (Calculated Centimeters) 172.7 Current Weight (lbs) 162 lb Weight (Calculated Kilograms) 73.5 Weight (Calculated Grams) 04139.0 Usual body Weight (lbs) 161 [place] Body Weight 154lb ([place]) Recent Weight Change No Weight Status Approriate GI Symptoms Food Allergies No Cultural/Ethnic/Gnosticism Belief Unknown. Usual diet at home Unknown. Skin Integrity/Comment: Ruddy 11. Skin intact. Current %PO Good (75-100%) Estimated Nutritional Goals BEE in Kcals: Using Current wt Calories/Kcals/Kg 30-35kcal/kg Kcals Calculated 2205-2573kcal Protein: Using Current wt Protein g/k.2-1.4g/kg Protein Calculated 88-103g/kg Fluid: ml 2205-2573ml (1ml/kcal) Nutritional Problem 1. Problem Problem Increased kcal and prot needs related to Etiology hypermetabolic stated aeb Signs/Symptoms: pneumonia, COPD exacerbation, acute respiratory failure Intervention/Recommendation Comments 1. Continue with mech soft ground + necatar thick diet ( refer to subjective information in nutrition assessment). Continue to monitor and supervise during meal time. Expected Outcomes/Goals Expected Outcomes/Goals 1. PO intake to meet at least 75% of estimated nutritional needs. Physician Parameters for PEM Serum Albumin (g/dl) 3.5 - 5.0 (Normal)
[2016-09-06] MEDS: Atorvastatin Calcium 10 MG TAB PO SCH (21:38)
[2016-09-07] MEDS: Ipratropium Neb 0.5 mg/2.5 mL UD HHN SCH ×4 (00:56→13:30)
[2016-09-07 07:20] LABS: HEMATOCRIT 33.6 % (39.0-49.0); HEMOGLOBIN 11.7 gm/dL (12.6-17.4); MEAN CELL VOLUME 86.2 fl (80-99); MEAN CORPUSCULAR HGB CONC 34.7 pg (28.0-36.0); MEAN PLATELET VOLUME 8.2 fl; PLATELET COUNT 267 Th/cmm (150-400); RED CELL DISTRIBUTION WIDTH 13.9 % (11.5-20.0); WHITE BLOOD COUNT 18.1 Th/cmm (4.8-10.8)
[2016-09-07] MEDS: Albuterol Nebulizer 2.5mg/3mL HHN SCH ×4 (07:27→19:03)
[2016-09-07] MEDS: Budesonide 0.5 Mg/2 mL Ud HHN SCH ×2 (07:27→19:03)
[2016-09-07 07:42] LABS: ANION GAP 7.9 (7.0-16.0); BUN - UREA NITROGEN 40 mg/dL (7-25); BUN/CREATININE RATIO 66.7; CALCIUM SERUM 8.2 mg/dL (8.6-10.3); CARBON DIOXIDE 29.1 mEq/L (21.0-31.0); CHLORIDE 112 mEq/L (98-107); CREATININE - SERUM 0.6 mg/dL (0.7-1.3); GLUCOSE 125 mg/dL (70-105); SODIUM SERUM 145 mEq/L (136-145)
[2016-09-07] MEDS: methylPREDNISolone SS 40 mg Vial IVP SCH ×2 (09:10→22:18)
[2016-09-07] MEDS: Aspirin 81mg Chewable Tab PO SCH (09:11)
[2016-09-07 11:37] LABS: ANISOCYTOSIS 1+; NEUTROPHILS 94 % (40-80); OVALOCYTES 1+; PLATELET ESTIMATE ADEQUATE (NORMAL); PLATELET MORPHOLOGY NORMAL (NORMAL); POIKILOCYTOSIS 1+; TOTAL CELLS COUNTED 100
[2016-09-07] MEDS ORDERED: methylPREDNISolone SS 40 mg Vial IVP SCH (13:00)
[2016-09-07] MEDS: cefTRIAXone 2 GM in Sodium Chloride 0.9% 100 ML IV SCH (13:14)
--- NOTE | 2016-09-07 14:51 | Internal Medicine Prog Note ---
Internal Medicine Subjective - Subjective Patient seen and examined:: with staff, chart reviewed Patient is:: awake, verbal, interactive Patient Complaints of:: congestion, sore throat Per staff patient is:: no episodes of fall, poor appetite, confused Internal Medicine Objective - Results Result Diagrams: 09/07/16 06:46 09/07/16 06:46 Recent Labs: Laboratory Last Values WBC 18.1 Th/cmm (4.8-10.8) H 09/07/16 06:46 RBC 3.90 Mil/cmm (3.80-5.80) 09/07/16 06:46 Hgb 11.7 gm/dL (12.6-17.4) L 09/07/16 06:46 Hct 33.6 % (39.0-49.0) L 09/07/16 06:46 MCV 86.2 fl (80-99) 09/07/16 06:46 MCH 30.0 pg (27.0-31.0) 09/07/16 06:46 MCHC Differential 34.7 pg (28.0-36.0) 09/07/16 06:46 RDW 13.9 % (11.5-20.0) 09/07/16 06:46 Plt Count 267 Th/cmm (150-400) 09/07/16 06:46 MPV 8.2 fl 09/07/16 06:46 Band Neutrophils % 1 % (0-10) 09/06/16 05:55 Neutrophils (Manual) 94 % (40-80) H 09/07/16 06:46 Lymphocytes 3 % (20-50) L 09/07/16 06:46 Monocytes 3 % (2-10) 09/07/16 06:46 Eosinophils 1 % (0-5) 09/04/16 06:45 Platelet Estimate ADEQUATE (NORMAL) 09/07/16 06:46 Platelet Morphology NORMAL (NORMAL) 09/07/16 06:46 Poikilocytosis 1+ 09/07/16 06:46 Anisocytosis 1+ 09/07/16 06:46 Ovalocytes 1+ 09/07/16 06:46 RBC Morph Micro Appear ABNORMAL (NORMAL) 09/07/16 06:46 PT 9.8 SECONDS (9.5-11.5) 08/31/16 08:20 INR 0.99 (0.5-1.4) 08/31/16 08:20 Specimen Source Arterial 08/31/16 07:36 Sample Site Right Radial 08/31/16 07:36 pH 7.42 (7.35-7.45) 08/31/16 07:36 pCO2 42.0 mmHg (35.0-45.0) 08/31/16 07:36 pO2 53.0 mmHg (80.0-100.0) L 08/31/16 07:36 HCO3 27.2 mmol/L (20.0-26.0) H 08/31/16 07:36 Base Excess 2.4 mmol/L (-3.0-3.0) 08/31/16 07:36 O2 Saturation 88.0 % (92.0-100.0) L 08/31/16 07:36 Praveen Test YES 08/31/16 07:36 Vent Rate NA 08/31/16 07:36 Inspired O2 21 08/31/16 07:36 Tidal Volume NA 08/31/16 07:36 PEEP NA 08/31/16 07:36 Pressure (ins/psv/peep) NA 08/31/16 07:36 Critical Value SH 08/31/16 07:36 Sodium 145 mEq/L (136-145) 09/07/16 06:46 Potassium 4.0 mEq/L (3.5-5.1) 09/07/16 06:46 Chloride 112 mEq/L (98-107) H 09/07/16 06:46 Carbon Dioxide 29.1 mEq/L (21.0-31.0) 09/07/16 06:46 Anion Gap 7.9 (7.0-16.0) 09/07/16 06:46 BUN 40 mg/dL (7-25) H 09/07/16 06:46 Creatinine 0.6 mg/dL (0.7-1.3) L 09/07/16 06:46 Est GFR ( Amer) TNP 09/07/16 06:46 Est GFR (Non-Af Amer) TNP 09/07/16 06:46 BUN/Creatinine Ratio 66.7 09/07/16 06:46 Glucose 125 mg/dL (70-105) H 09/07/16 06:46 Hemoglobin A1c % 5.8 % (4.0-6.0) 09/03/16 09:20 Whole Bld Lactic Acid 1.32 mmol/L (0.60-1.99) 08/31/16 08:20 Calcium 8.2 mg/dL (8.6-10.3) L 09/07/16 06:46 Magnesium 2.2 mg/dL (1.9-2.7) 09/06/16 05:55 Total Bilirubin 0.3 mg/dL (0.3-1.0) 09/06/16 05:55 AST 12 U/L (13-39) L 09/06/16 05:55 ALT 53 U/L (7-52) H 09/06/16 05:55 Alkaline Phosphatase 60 U/L (34-104) 09/06/16 05:55 Troponin I 0.02 ng/mL (0.01-0.05) 08/31/16 08:20 B-Natriuretic Peptide 129.0 pg/mL (5.0-100.0) H 09/06/16 05:55 Total Protein 5.4 gm/dL (6.0-8.3) L 09/06/16 05:55 Albumin 2.7 gm/dL (4.2-5.5) L 09/06/16 05:55 Globulin 2.7 gm/dL 09/06/16 05:55 Albumin/Globulin Ratio 1.0 (1.0-1.8) 09/06/16 05:55 TSH 0.39 uIU/ml (0.34-5.60) 08/31/16 08:20 Urine Source CLEAN C 09/03/16 17:00 Urine Color YELLOW 09/03/16 17:00 Urine Clarity CLEAR (CLEAR) 09/03/16 17:00 Urine pH 6.5 09/03/16 17:00 Ur Specific [place] 1.015 (1.005-1.030) 09/03/16 17:00 Urine Protein NEGATIVE mg/dL (NEGATIVE) 09/03/16 17:00 Urine Glucose (UA) NEGATIVE mg/dL (NEGATIVE) 09/03/16 17:00 Urine Ketones NEGATIVE mg/dL (NEGATIVE) 09/03/16 17:00 Urine Blood NEGATIVE (NEGATIVE) 09/03/16 17:00 Urine Nitrate NEGATIVE (NEGATIVE) 09/03/16 17:00 Urine Bilirubin NEGATIVE (NEGATIVE) 09/03/16 17:00 Urine Urobilinogen 0.2 E.U./dL (0.2 - 1.0) 09/03/16 17:00 Ur Leukocyte Esterase NEGATIVE (NEGATIVE) 09/03/16 17:00 Urine RBC NONE SEEN /hpf (0-5) 09/03/16 17:00 Urine WBC NONE SEEN /hpf (0-5) 09/03/16 17:00 Ur Epithelial Cells NONE SEEN /lpf (FEW) 09/03/16 17:00 Urine Bacteria NONE SEEN /hpf (NONE SEEN) 09/03/16 17:00 Vancomycin Trough 17.3 ug/mL (10-20) 09/06/16 09:00 RPR NONREACTIVE (NONREACTIVE) 08/31/16 08:20 - Physical Exam Vitals and I&O: Vital Signs Temp 97.4 F 09/07/16 04:00 Pulse 93 09/07/16 13:34 Resp 18 09/07/16 13:34 BP 162/88 09/07/16 11:37 Pulse Ox 95 09/07/16 13:34 Intake & Output 09/06/16 09/07/16 09/07/16 18:59 06:59 18:59 Intake Total 100 200 Output Total 350 Balance 100 -150 Intake: Intake, IV Amount 100 cefTRIAXone 2 gm In 100 Sodium Chloride 0.9% 100 ml @ 100 mls/hr IV Q24H [facility] Rx#:[id number] Oral 200 Output: Urine 350 Other: # Bowel Movements 1 Active Medications: Current Medications Acetaminophen (Tylenol) 650 mg PO Q4HR PRN PRN Reason: Pain or Fever >101 Stop: 10/30/16 09:31 Acetylcysteine (Mucomyst 20%) [address] [facility] Stop: 10/30/16 18:59 Last Admin: 09/07/16 13:30 Dose: 2 ml Albuterol Sulfate (Albuterol 2.5mg/3ml Neb Ud) 2.[address] [facility] Stop: 10/30/16 12:59 Last Admin: 09/07/16 11:21 Dose: 2.5 mg Amiodarone HCl (Cordarone) [address] [facility] Stop: 10/31/16 08:59 Last Admin: 09/07/16 09:10 Dose: 200 mg Aspirin (Aspirin Chewable) [address] [facility] Stop: 10/31/16 08:59 Last Admin: 09/07/16 09:11 Dose: 81 mg Atorvastatin Calcium (Lipitor) 10 mg PO HS [facility] PRN Reason: Protocol Stop: 10/30/16 20:59 Last Admin: 09/06/16 21:38 Dose: 10 mg Bisacodyl (Dulcolax 10 Mg Supp) 10 mg RC Q72H PRN PRN Reason: Constipation Stop: 10/30/16 09:31 Budesonide (Pulmicort) 0.[address] [facility] Stop: 10/30/16 09:44 Last Admin: 09/07/16 07:27 Dose: 0.5 mg Buspirone HCl (Buspar) [address] [facility] Stop: 10/30/16 13:59 Last Admin: 09/07/16 13:14 Dose: 10 mg Donepezil HCl (Aricept) [address] [facility] Stop: 10/30/16 20:59 Last Admin: 09/06/16 21:38 Dose: 10 mg Guaifenesin (Mucinex) 600 mg PO Q12HR PRN PRN Reason: Cough or Congestion Stop: 11/04/16 23:19 Ceftriaxone Sodium 2 gm/ (Sodium Chloride) 100 mls @ 100 mls/hr IV Q24H [facility] Stop: 11/03/16 13:59 Last Admin: 09/07/16 13:14 Dose: 100 mls/hr Ipratropium [place] (Atrovent Neb 0.5mg/2.5ml) 0.[address] [facility] Stop: 11/02/16 00:59 Last Admin: 09/07/16 13:30 Dose: 0.5 mg Magnesium Hydroxide (Milk Of Magnesia) 30 ml PO HS PRN PRN Reason: Constipation Stop: 10/30/16 09:31 Montelukast Sodium (Singulair) [address] [facility] Stop: 10/30/16 20:59 Last Admin: 09/06/16 21:37 Dose: 10 mg Olanzapine (Zyprexa) 15 mg PO DAILY [facility] PRN Reason: Protocol Stop: 10/31/16 08:59 Last Admin: 09/07/16 09:10 Dose: 15 mg Ondansetron HCl (Zofran) 4 mg IV Q8H PRN PRN Reason: Nausea / Vomiting Stop: 10/30/16 09:34 Sodium Phosphate (Fleet Enema) 135 ml RC PRN PRN PRN Reason: Constipation Stop: 10/30/16 09:31 Tamsulosin HCl (Flomax) 0.4 mg PO HS [facility] Stop: 10/30/16 20:59 Last Admin: 09/06/16 21:37 Dose: 0.4 mg General: lethargic, demented HEENT: NC/AT, PERRLA Neck: Supple, No JVD Lungs: congested, rales, ronchi Cardiovascular: RRR, Normal S1, Normal S2 Abdomen: soft non-tender Extremities: excoriation, contracture Neurological: disorganized, gait stable - Procedures Procedures: Procedures Procedure Code Date ASSISTANCE WITH RESPIRATORY VENTILATION, <24 HRS, CPAP [id number] 06/29/16 EXCISION OF DUODENUM, ENDO, DIAGN 5PX50MK 07/18/16 EXCISION OF ESOPHAGUS, ENDO, DIAGN [id number] 07/18/16 EXCISION OF STOMACH, ENDO, DIAGN [id number] 07/18/16 POS AIRWAY PRESSURE CPAP [id number] 06/29/16 Internal Medicine Assmt/Plan - Assessment Assessment: Pneumonia acute Copd exacerbation acute Respiratory Failure htn dyslipidemia dementia debility, functional quad leukocytosis - Plan Plan: cont on iv abx will decrease iv steroid ct chest noted will confer w pularabella de la fuente rn Nutritional Asmnt/Malnutr-PDOC - Dietary Evaluation Malnutrition Findings (Please click <Entered> for more info): Nutritional Asmnt/Malnutrition Start: 09/02/16 14: 33 Text: Status: Complete Freq: Document 09/02/16 14:34 GSUN (Rec: 09/02/16 14:52 GSUN [email or web address]) Nutritional Asmnt/Malnutrition Patient General Information Nutritional Screening High Risk Screening Diagnosis Pneumonia, acute respiratory failure, COPD exacerbation Pertinent Medical Hx/Surgical Hx HTN, CAD, asthma, COPD, dyslipidemia, PUD, GERD, dementia Subjective Information 75yo M from SNF. Pt was alert, appeared anxious during visit . Pt was admitted here once in past July and twice in past June. Pt was ordered pureed + nectar thick during previous two stays. Most recent swallow eval 06/26/16 ST recommended mech soft + nectar thick. Discussed with pt regarding diet texture and tolerance, pt denied difficulties chewing/ swallowing and expressed preference for current mech soft ground. Encouraged pt to inform RN if any diet texture intolerance noted, pt understood. PO intake 100% all 3 meals yesterday 09/01. Unable to lower pt's head for bedscale due to pt appeared anxious. Current Diet Order/ Nutrition Support [facility] soft ground + nectar thick Pertinent Medications Dulcolax, D5, MOM, Solu-Medrol , Vancomycin, Zofran, Fleet Enema Pertinent Labs Reviewed. Glucose 105, 143, 145 Nutritional Hx/Data Height 1.73 m Height (Calculated Centimeters) 172.7 Current Weight (lbs) 73.482 kg Weight (Calculated Kilograms) 73.5 Weight (Calculated Grams) 59152.0 Usual body Weight (lbs) 161 [place] Body Weight 154lb ([place]) Recent Weight Change No Weight Status Approriate GI Symptoms Food Allergies No Cultural/Ethnic/Confucianist Belief Unknown. Usual diet at home Unknown. Skin Integrity/Comment: Ruddy 11. Skin intact. Current %PO Good (75-100%) Estimated Nutritional Goals BEE in Kcals: Using Current wt Calories/Kcals/Kg 30-35kcal/kg Kcals Calculated 2205-2573kcal Protein: Using Current wt Protein g/k.2-1.4g/kg Protein Calculated 88-103g/kg Fluid: ml 2205-2573ml (1ml/kcal) Nutritional Problem 1. Problem Problem Increased kcal and prot needs related to Etiology hypermetabolic stated aeb Signs/Symptoms: pneumonia, COPD exacerbation, acute respiratory failure Intervention/Recommendation Comments 1. Continue with [facility] soft ground + necatar thick diet ( refer to subjective information in nutrition assessment). Continue to monitor and supervise during meal time. Expected Outcomes/Goals Expected Outcomes/Goals 1. PO intake to meet at least 75% of estimated nutritional needs. Physician Parameters for PEM Serum Albumin (g/dl) 3.5 - 5.0 (Normal)
[2016-09-07] MEDS: Atorvastatin Calcium 10 MG TAB PO SCH (22:17)
[2016-09-08] MEDS: Ipratropium Neb 0.5 mg/2.5 mL UD HHN SCH ×4 (01:33→19:32)
[2016-09-08] MEDS: methylPREDNISolone SS 40 mg Vial IVP SCH ×3 (05:24→21:10)
[2016-09-08 07:16] LABS: HEMATOCRIT 33.4 % (39.0-49.0); HEMOGLOBIN 11.4 gm/dL (12.6-17.4); MEAN CELL VOLUME 86.7 fl (80-99); MEAN CORPUSCULAR HEMOGLOBIN 29.6 pg (27.0-31.0); MEAN CORPUSCULAR HGB CONC 34.2 pg (28.0-36.0); PLATELET COUNT 254 Th/cmm (150-400); RED BLOOD COUNT 3.85 Mil/cmm (3.80-5.80); RED CELL DISTRIBUTION WIDTH 13.9 % (11.5-20.0)
[2016-09-08] MEDS: Albuterol Nebulizer 2.5mg/3mL HHN SCH ×4 (07:19→19:32)
[2016-09-08] MEDS: Budesonide 0.5 Mg/2 mL Ud HHN SCH ×2 (07:19→19:32)
[2016-09-08 07:59] LABS: WHITE BLOOD COUNT 13.6 Th/cmm (4.8-10.8)
[2016-09-08] MEDS: Aspirin 81mg Chewable Tab PO SCH (08:57)
[2016-09-08 10:57] LABS: ANISOCYTOSIS 1+; BAND NEUTROPHILE 1 % (0-10); NEUTROPHILS 90 % (40-80); OVALOCYTES 1+; PLATELET ESTIMATE ADEQUATE (NORMAL); POIKILOCYTOSIS 1+; TOTAL CELLS COUNTED 100
[2016-09-08 10:58] LABS: PLATELET MORPHOLOGY NORMAL (NORMAL)
[2016-09-08] MEDS: cefTRIAXone 2 GM in Sodium Chloride 0.9% 100 ML IV SCH (13:29)
--- NOTE | 2016-09-08 14:09 | Internal Medicine Prog Note ---
Internal Medicine Subjective - Subjective Patient seen and examined:: with staff, chart reviewed Patient is:: awake, verbal, interactive Patient Complaints of:: congestion Per staff patient is:: no adverse event, confused Internal Medicine Objective - Results Result Diagrams: 09/08/16 06:41 09/07/16 06:46 Recent Labs: Laboratory Last Values WBC 13.6 Th/cmm (4.8-10.8) H D 09/08/16 06:41 RBC 3.85 Mil/cmm (3.80-5.80) 09/08/16 06:41 Hgb 11.4 gm/dL (12.6-17.4) L 09/08/16 06:41 Hct 33.4 % (39.0-49.0) L 09/08/16 06:41 MCV 86.7 fl (80-99) 09/08/16 06:41 MCH 29.6 pg (27.0-31.0) 09/08/16 06:41 MCHC Differential 34.2 pg (28.0-36.0) 09/08/16 06:41 RDW 13.9 % (11.5-20.0) 09/08/16 06:41 Plt Count 254 Th/cmm (150-400) 09/08/16 06:41 MPV 8.0 fl 09/08/16 06:41 Band Neutrophils % 1 % (0-10) 09/08/16 06:41 Neutrophils (Manual) 90 % (40-80) H 09/08/16 06:41 Lymphocytes 5 % (20-50) L 09/08/16 06:41 Monocytes 4 % (2-10) 09/08/16 06:41 Eosinophils 1 % (0-5) 09/04/16 06:45 Platelet Estimate ADEQUATE (NORMAL) 09/08/16 06:41 Platelet Morphology NORMAL (NORMAL) 09/08/16 06:41 Poikilocytosis 1+ 09/08/16 06:41 Anisocytosis 1+ 09/08/16 06:41 Ovalocytes 1+ 09/08/16 06:41 RBC Morph Micro Appear ABNORMAL (NORMAL) 09/08/16 06:41 PT 9.8 SECONDS (9.5-11.5) 08/31/16 08:20 INR 0.99 (0.5-1.4) 08/31/16 08:20 Specimen Source Arterial 08/31/16 07:36 Sample Site Right Radial 08/31/16 07:36 pH 7.42 (7.35-7.45) 08/31/16 07:36 pCO2 42.0 mmHg (35.0-45.0) 08/31/16 07:36 pO2 53.0 mmHg (80.0-100.0) L 08/31/16 07:36 HCO3 27.2 mmol/L (20.0-26.0) H 08/31/16 07:36 Base Excess 2.4 mmol/L (-3.0-3.0) 08/31/16 07:36 O2 Saturation 88.0 % (92.0-100.0) L 08/31/16 07:36 Praveen Test YES 08/31/16 07:36 Vent Rate NA 08/31/16 07:36 Inspired O2 21 08/31/16 07:36 Tidal Volume NA 08/31/16 07:36 PEEP NA 08/31/16 07:36 Pressure (ins/psv/peep) NA 08/31/16 07:36 Critical Value SH 08/31/16 07:36 Sodium 145 mEq/L (136-145) 09/07/16 06:46 Potassium 4.0 mEq/L (3.5-5.1) 09/07/16 06:46 Chloride 112 mEq/L (98-107) H 09/07/16 06:46 Carbon Dioxide 29.1 mEq/L (21.0-31.0) 09/07/16 06:46 Anion Gap 7.9 (7.0-16.0) 09/07/16 06:46 BUN 40 mg/dL (7-25) H 09/07/16 06:46 Creatinine 0.6 mg/dL (0.7-1.3) L 09/07/16 06:46 Est GFR ( Amer) TNP 09/07/16 06:46 Est GFR (Non-Af Amer) TNP 09/07/16 06:46 BUN/Creatinine Ratio 66.7 09/07/16 06:46 Glucose 125 mg/dL (70-105) H 09/07/16 06:46 Hemoglobin A1c % 5.8 % (4.0-6.0) 09/03/16 09:20 Whole Bld Lactic Acid 1.32 mmol/L (0.60-1.99) 08/31/16 08:20 Calcium 8.2 mg/dL (8.6-10.3) L 09/07/16 06:46 Magnesium 2.2 mg/dL (1.9-2.7) 09/06/16 05:55 Total Bilirubin 0.3 mg/dL (0.3-1.0) 09/06/16 05:55 AST 12 U/L (13-39) L 09/06/16 05:55 ALT 53 U/L (7-52) H 09/06/16 05:55 Alkaline Phosphatase 60 U/L (34-104) 09/06/16 05:55 Troponin I 0.02 ng/mL (0.01-0.05) 08/31/16 08:20 B-Natriuretic Peptide 129.0 pg/mL (5.0-100.0) H 09/06/16 05:55 Total Protein 5.4 gm/dL (6.0-8.3) L 09/06/16 05:55 Albumin 2.7 gm/dL (4.2-5.5) L 09/06/16 05:55 Globulin 2.7 gm/dL 09/06/16 05:55 Albumin/Globulin Ratio 1.0 (1.0-1.8) 09/06/16 05:55 TSH 0.39 uIU/ml (0.34-5.60) 08/31/16 08:20 Urine Source CLEAN C 09/03/16 17:00 Urine Color YELLOW 09/03/16 17:00 Urine Clarity CLEAR (CLEAR) 09/03/16 17:00 Urine pH 6.5 09/03/16 17:00 Ur Specific [place] 1.015 (1.005-1.030) 09/03/16 17:00 Urine Protein NEGATIVE mg/dL (NEGATIVE) 09/03/16 17:00 Urine Glucose (UA) NEGATIVE mg/dL (NEGATIVE) 09/03/16 17:00 Urine Ketones NEGATIVE mg/dL (NEGATIVE) 09/03/16 17:00 Urine Blood NEGATIVE (NEGATIVE) 09/03/16 17:00 Urine Nitrate NEGATIVE (NEGATIVE) 09/03/16 17:00 Urine Bilirubin NEGATIVE (NEGATIVE) 09/03/16 17:00 Urine Urobilinogen 0.2 E.U./dL (0.2 - 1.0) 09/03/16 17:00 Ur Leukocyte Esterase NEGATIVE (NEGATIVE) 09/03/16 17:00 Urine RBC NONE SEEN /hpf (0-5) 09/03/16 17:00 Urine WBC NONE SEEN /hpf (0-5) 09/03/16 17:00 Ur Epithelial Cells NONE SEEN /lpf (FEW) 09/03/16 17:00 Urine Bacteria NONE SEEN /hpf (NONE SEEN) 09/03/16 17:00 Vancomycin Trough 17.3 ug/mL (10-20) 09/06/16 09:00 RPR NONREACTIVE (NONREACTIVE) 08/31/16 08:20 - Physical Exam Vitals and I&O: Vital Signs Temp 98.8 F 09/08/16 00:00 Pulse 68 09/08/16 13:56 Resp 16 09/08/16 13:56 BP 148/78 09/08/16 00:00 Pulse Ox 95 09/08/16 13:56 Intake & Output 09/07/16 09/08/16 09/08/16 18:59 06:59 18:59 Intake Total 400 300 Output Total 700 1300 Balance -300 -1000 Intake: Intake, IV Amount 100 cefTRIAXone 2 gm In 100 Sodium Chloride 0.9% 100 ml @ 100 mls/hr IV Q24H [facility] Rx#:[id number] Oral 300 300 Output: Urine 700 1300 Other: # Bowel Movements 2 1 Active Medications: Current Medications Acetaminophen (Tylenol) 650 mg PO Q4HR PRN PRN Reason: Pain or Fever >101 Stop: 10/30/16 09:31 Acetylcysteine (Mucomyst 20%) 2 ml HHN Q6HRT [facility] Stop: 10/30/16 18:59 Last Admin: 09/08/16 13:56 Dose: 2 ml Albuterol Sulfate (Albuterol 2.5mg/3ml Neb Ud) 2.5 mg HHN QIDRT [facility] Stop: 10/30/16 12:59 Last Admin: 09/08/16 11:13 Dose: 2.5 mg Amiodarone HCl (Cordarone) 200 mg PO DAILY [facility] Stop: 10/31/16 08:59 Last Admin: 09/08/16 08:57 Dose: 200 mg Aspirin (Aspirin Chewable) 81 mg PO DAILY [facility] Stop: 10/31/16 08:59 Last Admin: 09/08/16 08:57 Dose: 81 mg Atorvastatin Calcium (Lipitor) 10 mg PO HS [facility] PRN Reason: Protocol Stop: 10/30/16 20:59 Last Admin: 09/07/16 22:17 Dose: 10 mg Bisacodyl (Dulcolax 10 Mg Supp) 10 mg RC Q72H PRN PRN Reason: Constipation Stop: 10/30/16 09:31 Budesonide (Pulmicort) 0.5 mg HHN Q12HRT [facility] Stop: 10/30/16 09:44 Last Admin: 09/08/16 07:19 Dose: 0.5 mg Buspirone HCl (Buspar) 10 mg PO TID [facility] Stop: 10/30/16 13:59 Last Admin: 09/08/16 13:30 Dose: 10 mg Donepezil HCl (Aricept) 10 mg PO HS [facility] Stop: 10/30/16 20:59 Last Admin: 09/07/16 22:17 Dose: 10 mg Guaifenesin (Mucinex) 600 mg PO Q12HR PRN PRN Reason: Cough or Congestion Stop: 11/04/16 23:19 Ceftriaxone Sodium 2 gm/ (Sodium Chloride) 100 mls @ 100 mls/hr IV Q24H [facility] Stop: 11/03/16 13:59 Last Admin: 09/08/16 13:29 Dose: 100 mls/hr Ipratropium [place] (Atrovent Neb 0.5mg/2.5ml) 0.5 mg HHN Q6HRT [facility] Stop: 11/02/16 00:59 Last Admin: 09/08/16 13:56 Dose: 0.5 mg Magnesium Hydroxide (Milk Of Magnesia) 30 ml PO HS PRN PRN Reason: Constipation Stop: 10/30/16 09:31 Montelukast Sodium (Singulair) 10 mg PO HS [facility] Stop: 10/30/16 20:59 Last Admin: 09/07/16 22:18 Dose: 10 mg Olanzapine (Zyprexa) 15 mg PO DAILY [facility] PRN Reason: Protocol Stop: 10/31/16 08:59 Last Admin: 09/08/16 08:56 Dose: 15 mg Ondansetron HCl (Zofran) 4 mg IV Q8H PRN PRN Reason: Nausea / Vomiting Stop: 10/30/16 09:34 Sodium Phosphate (Fleet Enema) 135 ml RC PRN PRN PRN Reason: Constipation Stop: 10/30/16 09:31 Tamsulosin HCl (Flomax) 0.4 mg PO HS [facility] Stop: 10/30/16 20:59 Last Admin: 09/07/16 22:18 Dose: 0.4 mg General: congested, demented HEENT: NC/AT, PERRLA Neck: Supple, No JVD Lungs: congested, rales Cardiovascular: RRR, Normal S1, Normal S2 Abdomen: soft non-tender, globular, positive bowel sound Extremities: excoriation, contracture Neurological: no change, unsteady - Procedures Procedures: Procedures Procedure Code Date ASSISTANCE WITH RESPIRATORY VENTILATION, <24 HRS, CPAP 5N23330 06/29/16 EXCISION OF DUODENUM, ENDO, DIAGN [id number] 07/18/16 EXCISION OF ESOPHAGUS, ENDO, DIAGN [id number] 07/18/16 EXCISION OF STOMACH, ENDO, DIAGN [id number] 07/18/16 POS AIRWAY PRESSURE CPAP 68910 06/29/16 Internal Medicine Assmt/Plan - Assessment Assessment: Pneumonia acute Copd exacerbation acute Respiratory Failure htn dyslipidemia dementia debility, functional quad leukocytosis - Plan Plan: cont on iv abx will decrease iv steroid ct chest noted will confer w pularabella de la fuente rn Nutritional Asmnt/Malnutr-PDOC - Dietary Evaluation Malnutrition Findings (Please click <Entered> for more info): Nutritional Asmnt/Malnutrition Start: 09/02/16 14: 33 Text: Status: Complete Freq: Document 09/02/16 14:34 GSUN (Rec: 09/02/16 14:52 GSUN [email or web address]) Nutritional Asmnt/Malnutrition Patient General Information Nutritional Screening High Risk Screening Diagnosis Pneumonia, acute respiratory failure, COPD exacerbation Pertinent Medical Hx/Surgical Hx HTN, CAD, asthma, COPD, dyslipidemia, PUD, GERD, dementia Subjective Information 75yo M from SNF. Pt was alert, appeared anxious during visit . Pt was admitted here once in past July and twice in past June. Pt was ordered pureed + nectar thick during previous two stays. Most recent swallow eval 06/26/16 ST recommended mech soft + nectar thick. Discussed with pt regarding diet texture and tolerance, pt denied difficulties chewing/ swallowing and expressed preference for current mech soft ground. Encouraged pt to inform RN if any diet texture intolerance noted, pt understood. PO intake 100% all 3 meals yesterday 09/01. Unable to lower pt's head for bedscale due to pt appeared anxious. Current Diet Order/ Nutrition Support [facility] soft ground + nectar thick Pertinent Medications Dulcolax, D5, MOM, Solu-Medrol , Vancomycin, Zofran, Fleet Enema Pertinent Labs Reviewed. Glucose 105, 143, 145 Nutritional Hx/Data Height 1.73 m Height (Calculated Centimeters) 172.7 Current Weight (lbs) 73.482 kg Weight (Calculated Kilograms) 73.5 Weight (Calculated Grams) 18522.0 Usual body Weight (lbs) 161 [place] Body Weight 154lb ([place]) Recent Weight Change No Weight Status Approriate GI Symptoms Food Allergies No Cultural/Ethnic/Restoration Belief Unknown. Usual diet at home Unknown. Skin Integrity/Comment: Ruddy 11. Skin intact. Current %PO Good (75-100%) Estimated Nutritional Goals BEE in Kcals: Using Current wt Calories/Kcals/Kg 30-35kcal/kg Kcals Calculated 2205-2573kcal Protein: Using Current wt Protein g/k.2-1.4g/kg Protein Calculated 88-103g/kg Fluid: ml 2205-2573ml (1ml/kcal) Nutritional Problem 1. Problem Problem Increased kcal and prot needs related to Etiology hypermetabolic stated aeb Signs/Symptoms: pneumonia, COPD exacerbation, acute respiratory failure Intervention/Recommendation Comments 1. Continue with [facility] soft ground + necatar thick diet ( refer to subjective information in nutrition assessment). Continue to monitor and supervise during meal time. Expected Outcomes/Goals Expected Outcomes/Goals 1. PO intake to meet at least 75% of estimated nutritional needs. Physician Parameters for PEM Serum Albumin (g/dl) 3.5 - 5.0 (Normal)
[2016-09-08] MEDS: Fluconazole 200mg/100mL 200 MG/100 ML BAG IV SCH (14:40)
[2016-09-08] MEDS: Atorvastatin Calcium 10 MG TAB PO SCH (21:09)
[2016-09-09] MEDS: Ipratropium Neb 0.5 mg/2.5 mL UD HHN SCH ×3 (01:54→12:09)
[2016-09-09] MEDS: Albuterol Nebulizer 2.5mg/3mL HHN SCH ×4 (07:22→19:43)
[2016-09-09] MEDS: Budesonide 0.5 Mg/2 mL Ud HHN SCH ×2 (07:22→19:44)
[2016-09-09 08:07] LABS: HEMATOCRIT 33.4 % (39.0-49.0); HEMOGLOBIN 11.5 gm/dL (12.6-17.4); MEAN CELL VOLUME 86.3 fl (80-99); MEAN CORPUSCULAR HEMOGLOBIN 29.8 pg (27.0-31.0); MEAN CORPUSCULAR HGB CONC 34.6 pg (28.0-36.0); PLATELET COUNT 232 Th/cmm (150-400); RED BLOOD COUNT 3.86 Mil/cmm (3.80-5.80); WHITE BLOOD COUNT 13.4 Th/cmm (4.8-10.8)
--- NOTE | 2016-09-09 09:13 | Diagnostic Imaging Report ---
Portable chest x-ray HISTORY: Shortness of breath Compared with the prior exam of 09/06/2016, increasing density is seen within the left hemithorax suggesting an increase in the left pleural effusion. Obscuration of the left heart margin. IMPRESSION: 1. Increasing opacification of the left hemithorax suggesting an increasing pleural effusion.
[2016-09-09 09:27] LABS: BAND NEUTROPHILE 5 % (0-10); BASOPHIL 1 % (0-3); EOSINOPHIL 1 % (0-5); NEUTROPHILS 85 % (40-80); TOTAL CELLS COUNTED 100
[2016-09-09 09:28] LABS: PLATELET ESTIMATE ADEQUATE (NORMAL); PLATELET MORPHOLOGY NORMAL (NORMAL)
[2016-09-09] MEDS: Aspirin 81mg Chewable Tab PO SCH (09:38)
[2016-09-09] MEDS: methylPREDNISolone SS 40 mg Vial IVP SCH (09:44)
--- NOTE | 2016-09-09 12:22 | Internal Medicine Prog Note ---
Internal Medicine Subjective - Subjective Service Date: 09/09/16 Patient seen and examined:: with staff Patient is:: awake Per staff patient is:: no adverse event Internal Medicine Objective - Results Result Diagrams: 09/09/16 07:39 09/07/16 06:46 Recent Labs: Laboratory Last Values WBC 13.4 Th/cmm (4.8-10.8) H 09/09/16 07:39 RBC 3.86 Mil/cmm (3.80-5.80) 09/09/16 07:39 Hgb 11.5 gm/dL (12.6-17.4) L 09/09/16 07:39 Hct 33.4 % (39.0-49.0) L 09/09/16 07:39 MCV 86.3 fl (80-99) 09/09/16 07:39 MCH 29.8 pg (27.0-31.0) 09/09/16 07:39 MCHC Differential 34.6 pg (28.0-36.0) 09/09/16 07:39 RDW 14.0 % (11.5-20.0) 09/09/16 07:39 Plt Count 232 Th/cmm (150-400) 09/09/16 07:39 MPV 8.0 fl 09/09/16 07:39 Band Neutrophils % 5 % (0-10) 09/09/16 07:39 Neutrophils (Manual) 85 % (40-80) H 09/09/16 07:39 Lymphocytes 6 % (20-50) L 09/09/16 07:39 Monocytes 2 % (2-10) 09/09/16 07:39 Eosinophils 1 % (0-5) 09/09/16 07:39 Basophils 1 % (0-3) 09/09/16 07:39 Platelet Estimate ADEQUATE (NORMAL) 09/09/16 07:39 Platelet Morphology NORMAL (NORMAL) 09/09/16 07:39 Poikilocytosis 1+ 09/08/16 06:41 Anisocytosis 1+ 09/08/16 06:41 Ovalocytes 1+ 09/08/16 06:41 RBC Morph Micro Appear NORMAL (NORMAL) 09/09/16 07:39 PT 9.8 SECONDS (9.5-11.5) 08/31/16 08:20 INR 0.99 (0.5-1.4) 08/31/16 08:20 Specimen Source Arterial 08/31/16 07:36 Sample Site Right Radial 08/31/16 07:36 pH 7.42 (7.35-7.45) 08/31/16 07:36 pCO2 42.0 mmHg (35.0-45.0) 08/31/16 07:36 pO2 53.0 mmHg (80.0-100.0) L 08/31/16 07:36 HCO3 27.2 mmol/L (20.0-26.0) H 08/31/16 07:36 Base Excess 2.4 mmol/L (-3.0-3.0) 08/31/16 07:36 O2 Saturation 88.0 % (92.0-100.0) L 08/31/16 07:36 Praveen Test YES 08/31/16 07:36 Vent Rate NA 08/31/16 07:36 Inspired O2 21 08/31/16 07:36 Tidal Volume NA 08/31/16 07:36 PEEP NA 08/31/16 07:36 Pressure (ins/psv/peep) NA 08/31/16 07:36 Critical Value SH 08/31/16 07:36 Sodium 145 mEq/L (136-145) 09/07/16 06:46 Potassium 4.0 mEq/L (3.5-5.1) 09/07/16 06:46 Chloride 112 mEq/L (98-107) H 09/07/16 06:46 Carbon Dioxide 29.1 mEq/L (21.0-31.0) 09/07/16 06:46 Anion Gap 7.9 (7.0-16.0) 09/07/16 06:46 BUN 40 mg/dL (7-25) H 09/07/16 06:46 Creatinine 0.6 mg/dL (0.7-1.3) L 09/07/16 06:46 Est GFR ( Amer) TNP 09/07/16 06:46 Est GFR (Non-Af Amer) TNP 09/07/16 06:46 BUN/Creatinine Ratio 66.7 09/07/16 06:46 Glucose 125 mg/dL (70-105) H 09/07/16 06:46 POC Glucose 164 MG/DL (70-105) H 09/08/16 00:19 Hemoglobin A1c % 5.8 % (4.0-6.0) 09/03/16 09:20 Whole Bld Lactic Acid 1.32 mmol/L (0.60-1.99) 08/31/16 08:20 Calcium 8.2 mg/dL (8.6-10.3) L 09/07/16 06:46 Magnesium 2.2 mg/dL (1.9-2.7) 09/06/16 05:55 Total Bilirubin 0.3 mg/dL (0.3-1.0) 09/06/16 05:55 AST 12 U/L (13-39) L 09/06/16 05:55 ALT 53 U/L (7-52) H 09/06/16 05:55 Alkaline Phosphatase 60 U/L (34-104) 09/06/16 05:55 Troponin I 0.02 ng/mL (0.01-0.05) 08/31/16 08:20 B-Natriuretic Peptide 129.0 pg/mL (5.0-100.0) H 09/06/16 05:55 Total Protein 5.4 gm/dL (6.0-8.3) L 09/06/16 05:55 Albumin 2.7 gm/dL (4.2-5.5) L 09/06/16 05:55 Globulin 2.7 gm/dL 09/06/16 05:55 Albumin/Globulin Ratio 1.0 (1.0-1.8) 09/06/16 05:55 TSH 0.39 uIU/ml (0.34-5.60) 08/31/16 08:20 Urine Source CLEAN C 09/03/16 17:00 Urine Color YELLOW 09/03/16 17:00 Urine Clarity CLEAR (CLEAR) 09/03/16 17:00 Urine pH 6.5 09/03/16 17:00 Ur Specific [place] 1.015 (1.005-1.030) 09/03/16 17:00 Urine Protein NEGATIVE mg/dL (NEGATIVE) 09/03/16 17:00 Urine Glucose (UA) NEGATIVE mg/dL (NEGATIVE) 09/03/16 17:00 Urine Ketones NEGATIVE mg/dL (NEGATIVE) 09/03/16 17:00 Urine Blood NEGATIVE (NEGATIVE) 09/03/16 17:00 Urine Nitrate NEGATIVE (NEGATIVE) 09/03/16 17:00 Urine Bilirubin NEGATIVE (NEGATIVE) 09/03/16 17:00 Urine Urobilinogen 0.2 E.U./dL (0.2 - 1.0) 09/03/16 17:00 Ur Leukocyte Esterase NEGATIVE (NEGATIVE) 09/03/16 17:00 Urine RBC NONE SEEN /hpf (0-5) 09/03/16 17:00 Urine WBC NONE SEEN /hpf (0-5) 09/03/16 17:00 Ur Epithelial Cells NONE SEEN /lpf (FEW) 09/03/16 17:00 Urine Bacteria NONE SEEN /hpf (NONE SEEN) 09/03/16 17:00 Vancomycin Trough 17.3 ug/mL (10-20) 09/06/16 09:00 RPR NONREACTIVE (NONREACTIVE) 08/31/16 08:20 - Physical Exam Vitals and I&O: Vital Signs Temp 98.5 F 09/09/16 12:00 Pulse 61 09/09/16 12:12 Resp 18 09/09/16 12:12 BP 117/65 09/09/16 12:00 Pulse Ox 95 09/09/16 12:12 Intake & Output 09/08/16 09/09/16 09/09/16 18:59 06:59 18:59 Intake Total 600 100 240 Output Total 400 Balance 600 -300 240 Intake: Intake, IV Amount 200 Fluconazole 200mg/100mL 100 200 mg In 100 ml @ 100 mls/hr IV Q24HR [facility] Rx#: [id number] cefTRIAXone 2 gm In 100 Sodium Chloride 0.9% 100 ml @ 100 mls/hr IV Q24H [facility] Rx#:[id number] Oral 400 100 240 Output: Urine 400 Other: # Voids 3 # Bowel Movements 1 Stool Characteristics Formed Active Medications: Current Medications Acetaminophen (Tylenol) 650 mg PO Q4HR PRN PRN Reason: Pain or Fever >101 Stop: 10/30/16 09:31 Acetylcysteine (Mucomyst 20%) 2 ml HHN Q6HRT [facility] Stop: 10/30/16 18:59 Last Admin: 09/09/16 12:10 Dose: 2 ml Albuterol Sulfate (Albuterol 2.5mg/3ml Neb Ud) 2.5 mg HHN QIDRT [facility] Stop: 10/30/16 12:59 Last Admin: 09/09/16 10:59 Dose: 2.5 mg Amiodarone HCl (Cordarone) 200 mg PO DAILY [facility] Stop: 10/31/16 08:59 Last Admin: 09/09/16 09:39 Dose: 200 mg Aspirin (Aspirin Chewable) 81 mg PO DAILY [facility] Stop: 10/31/16 08:59 Last Admin: 09/09/16 09:38 Dose: 81 mg Atorvastatin Calcium (Lipitor) 10 mg PO HS [facility] PRN Reason: Protocol Stop: 10/30/16 20:59 Last Admin: 09/08/16 21:09 Dose: 10 mg Bisacodyl (Dulcolax 10 Mg Supp) 10 mg RC Q72H PRN PRN Reason: Constipation Stop: 10/30/16 09:31 Budesonide (Pulmicort) 0.5 mg HHN Q12HRT [facility] Stop: 10/30/16 09:44 Last Admin: 09/09/16 07:22 Dose: 0.5 mg Buspirone HCl (Buspar) 10 mg PO TID [facility] Stop: 10/30/16 13:59 Last Admin: 09/09/16 09:38 Dose: 10 mg Donepezil HCl (Aricept) 10 mg PO HS [facility] Stop: 10/30/16 20:59 Last Admin: 09/08/16 21:10 Dose: 10 mg Guaifenesin (Mucinex) 600 mg PO Q12HR PRN PRN Reason: Cough or Congestion Stop: 11/04/16 23:19 Ceftriaxone Sodium 2 gm/ (Sodium Chloride) 100 mls @ 100 mls/hr IV Q24H [facility] Stop: 11/03/16 13:59 Last Infusion: 09/08/16 14:30 Dose: Infused Fluconazole (Diflucan) 200 mg in 100 mls @ 100 mls/hr IV Q24HR [facility] Stop: 11/07/16 14:14 Last Infusion: 09/08/16 15:45 Dose: Infused Ipratropium [place] (Atrovent Neb 0.5mg/2.5ml) 0.5 mg HHN Q6HRT [facility] Stop: 11/02/16 00:59 Last Admin: 09/09/16 12:09 Dose: 0.5 mg Magnesium Hydroxide (Milk Of Magnesia) 30 ml PO HS PRN PRN Reason: Constipation Stop: 10/30/16 09:31 Montelukast Sodium (Singulair) 10 mg PO HS [facility] Stop: 10/30/16 20:59 Last Admin: 09/08/16 21:10 Dose: 10 mg Olanzapine (Zyprexa) 15 mg PO DAILY [facility] PRN Reason: Protocol Stop: 10/31/16 08:59 Last Admin: 09/09/16 09:38 Dose: 15 mg Ondansetron HCl (Zofran) 4 mg IV Q8H PRN PRN Reason: Nausea / Vomiting Stop: 10/30/16 09:34 Prednisone (Deltasone) 20 mg PO BID [facility] Stop: 09/14/16 16:59 Sodium Phosphate (Fleet Enema) 135 ml RC PRN PRN PRN Reason: Constipation Stop: 10/30/16 09:31 Tamsulosin HCl (Flomax) 0.4 mg PO HS [facility] Stop: 10/30/16 20:59 Last Admin: 09/08/16 21:10 Dose: 0.4 mg General: alert HEENT: NC/AT Lungs: congested Cardiovascular: RRR, Normal S1, Normal S2, without murmur Abdomen: soft non-tender, non-distended Extremities: clear - Procedures Procedures: Procedures Procedure Code Date ASSISTANCE WITH RESPIRATORY VENTILATION, <24 HRS, CPAP [id number] 06/29/16 EXCISION OF DUODENUM, ENDO, DIAGN [id number] 07/18/16 EXCISION OF ESOPHAGUS, ENDO, DIAGN [id number] 07/18/16 EXCISION OF STOMACH, ENDO, DIAGN [id number] 07/18/16 POS AIRWAY PRESSURE CPAP 00074 06/29/16 Internal Medicine Assmt/Plan - Assessment Assessment: Pneumonia Copd exacerbation Respiratory Failure htn dyslipidemia dementia - Plan Plan: f/u labs bronchodilators continue ivabx supplemental o2 cpm Nutritional Asmnt/Malnutr-PDOC - Dietary Evaluation Malnutrition Findings (Please click <Entered> for more info): Nutritional Asmnt/Malnutrition Start: 09/02/16 14: 33 Text: Status: Complete Freq: Document 09/02/16 14:34 GSUN (Rec: 09/02/16 14:52 GSUN [email or web address]) Nutritional Asmnt/Malnutrition Patient General Information Nutritional Screening High Risk Screening Diagnosis Pneumonia, acute respiratory failure, COPD exacerbation Pertinent Medical Hx/Surgical Hx HTN, CAD, asthma, COPD, dyslipidemia, PUD, GERD, dementia Subjective Information 75yo M from SNF. Pt was alert, appeared anxious during visit . Pt was admitted here once in past July and twice in past June. Pt was ordered pureed + nectar thick during previous two stays. Most recent swallow eval 06/26/16 ST recommended mech soft + nectar thick. Discussed with pt regarding diet texture and tolerance, pt denied difficulties chewing/ swallowing and expressed preference for current mech soft ground. Encouraged pt to inform RN if any diet texture intolerance noted, pt understood. PO intake 100% all 3 meals yesterday 09/01. Unable to lower pt's head for bedscale due to pt appeared anxious. Current Diet Order/ Nutrition Support Mech soft ground + nectar thick Pertinent Medications Dulcolax, D5, MOM, Solu-Medrol , Vancomycin, Zofran, Fleet Enema Pertinent Labs Reviewed. Glucose 105, 143, 145 Nutritional Hx/Data Height 5 ft 8 in Height (Calculated Centimeters) 172.7 Current Weight (lbs) 162 lb Weight (Calculated Kilograms) 73.5 Weight (Calculated Grams) 24257.0 Usual body Weight (lbs) 161 [place] Body Weight 154lb ([place]) Recent Weight Change No Weight Status Approriate GI Symptoms Food Allergies No Cultural/Ethnic/Mu-Ism Belief Unknown. Usual diet at home Unknown. Skin Integrity/Comment: Ruddy 11. Skin intact. Current %PO Good (75-100%) Estimated Nutritional Goals BEE in Kcals: Using Current wt Calories/Kcals/Kg 30-35kcal/kg Kcals Calculated 2205-2573kcal Protein: Using Current wt Protein g/k.2-1.4g/kg Protein Calculated 88-103g/kg Fluid: ml 2205-2573ml (1ml/kcal) Nutritional Problem 1. Problem Problem Increased kcal and prot needs related to Etiology hypermetabolic stated aeb Signs/Symptoms: pneumonia, COPD exacerbation, acute respiratory failure Intervention/Recommendation Comments 1. Continue with mech soft ground + necatar thick diet ( refer to subjective information in nutrition assessment). Continue to monitor and supervise during meal time. Expected Outcomes/Goals Expected Outcomes/Goals 1. PO intake to meet at least 75% of estimated nutritional needs. Physician Parameters for PEM Serum Albumin (g/dl) 3.5 - 5.0 (Normal)
[2016-09-09] MEDS: cefTRIAXone 2 GM in Sodium Chloride 0.9% 100 ML IV SCH (15:12)
[2016-09-09] MEDS: Fluconazole 200mg/100mL 200 MG/100 ML BAG IV SCH (16:52)
[2016-09-09] MEDS: Atorvastatin Calcium 10 MG TAB PO SCH (20:09)
[2016-09-10] MEDS: Ipratropium Neb 0.5 mg/2.5 mL UD HHN SCH ×3 (01:14→20:09)
[2016-09-10 07:36] LABS: ANION GAP 7.3 (7.0-16.0); BUN - UREA NITROGEN 34 mg/dL (7-25); CALCIUM SERUM 8.2 mg/dL (8.6-10.3); CARBON DIOXIDE 29.5 mEq/L (21.0-31.0); CHLORIDE 108 mEq/L (98-107); CREATININE - SERUM 0.5 mg/dL (0.7-1.3); GLUCOSE 104 mg/dL (70-105); POTASSIUM SERUM 4.8 mEq/L (3.5-5.1); SODIUM SERUM 140 mEq/L (136-145)
[2016-09-10 07:48] LABS: HEMATOCRIT 34.4 % (39.0-49.0); HEMOGLOBIN 11.8 gm/dL (12.6-17.4); MEAN CORPUSCULAR HEMOGLOBIN 29.8 pg (27.0-31.0); MEAN CORPUSCULAR HGB CONC 34.3 pg (28.0-36.0); MEAN PLATELET VOLUME 8.1 fl; PLATELET COUNT 214 Th/cmm (150-400); RED BLOOD COUNT 3.96 Mil/cmm (3.80-5.80); RED CELL DISTRIBUTION WIDTH 14.2 % (11.5-20.0)
[2016-09-10 08:01] LABS: WHITE BLOOD COUNT 15.6 Th/cmm (4.8-10.8)
[2016-09-10] MEDS: Budesonide 0.5 Mg/2 mL Ud HHN SCH ×2 (08:50→20:09)
[2016-09-10] MEDS: Albuterol Nebulizer 2.5mg/3mL HHN SCH ×3 (08:50→20:09)
[2016-09-10] MEDS: Aspirin 81mg Chewable Tab PO SCH (08:55)
--- NOTE | 2016-09-10 09:29 | Diagnostic Imaging Report ---
CHEST X-RAY: AP view INDICATION: Shortness of breath COMPARISON: Chest x-ray 09/08/[address] chest on 09/04/2016 FINDINGS: There is persistent elevation of the left hemidiaphragm with gaseous distended bowel. Diffuse postsurgical changes are seen. Left effusion is seen with probable atelectasis of the left lung base. Left lung infiltrates have mildly improved. Cardiomegaly is noted. IMPRESSION: Persistent elevation of left hemidiaphragm with left effusion. There has been overall improvement in left lung infiltrates since prior examination. Cardiomegaly.
[2016-09-10 10:09] LABS: BAND NEUTROPHILE 6 % (0-10); NEUTROPHILS 81 % (40-80); TOTAL CELLS COUNTED 100
[2016-09-10 10:10] LABS: PLATELET ESTIMATE ADEQUATE (NORMAL); PLATELET MORPHOLOGY NORMAL (NORMAL)
[2016-09-10] MEDS: cefTRIAXone 2 GM in Sodium Chloride 0.9% 100 ML IV SCH (13:17)
[2016-09-10] MEDS: Fluconazole 200mg/100mL 200 MG/100 ML BAG IV SCH (14:48)
[2016-09-10] MEDS: Atorvastatin Calcium 10 MG TAB PO SCH (20:11)
[2016-09-11] MEDS: Ipratropium Neb 0.5 mg/2.5 mL UD HHN SCH ×4 (02:42→19:16)
[2016-09-11] MEDS: Albuterol Nebulizer 2.5mg/3mL HHN SCH ×4 (07:05→19:16)
[2016-09-11] MEDS: Budesonide 0.5 Mg/2 mL Ud HHN SCH ×2 (07:19→19:16)
[2016-09-11] MEDS: Aspirin 81mg Chewable Tab PO SCH (08:52)
--- NOTE | 2016-09-11 10:44 | Internal Medicine Prog Note ---
Internal Medicine Subjective - Subjective Service Date: 09/11/16 Patient seen and examined:: with staff Patient is:: awake Per staff patient is:: no adverse event Internal Medicine Objective - Results Result Diagrams: 09/10/16 06:36 09/10/16 06:36 Recent Labs: Laboratory Last Values WBC 15.6 Th/cmm (4.8-10.8) H 09/10/16 06:36 RBC 3.96 Mil/cmm (3.80-5.80) 09/10/16 06:36 Hgb 11.8 gm/dL (12.6-17.4) L 09/10/16 06:36 Hct 34.4 % (39.0-49.0) L 09/10/16 06:36 MCV 87.0 fl (80-99) 09/10/16 06:36 MCH 29.8 pg (27.0-31.0) 09/10/16 06:36 MCHC Differential 34.3 pg (28.0-36.0) 09/10/16 06:36 RDW 14.2 % (11.5-20.0) 09/10/16 06:36 Plt Count 214 Th/cmm (150-400) 09/10/16 06:36 MPV 8.1 fl 09/10/16 06:36 Band Neutrophils % 6 % (0-10) 09/10/16 06:36 Neutrophils (Manual) 81 % (40-80) H 09/10/16 06:36 Lymphocytes 9 % (20-50) L 09/10/16 06:36 Monocytes 4 % (2-10) 09/10/16 06:36 Eosinophils 1 % (0-5) 09/09/16 07:39 Basophils 1 % (0-3) 09/09/16 07:39 Platelet Estimate ADEQUATE (NORMAL) 09/10/16 06:36 Platelet Morphology NORMAL (NORMAL) 09/10/16 06:36 Poikilocytosis 1+ 09/08/16 06:41 Anisocytosis 1+ 09/08/16 06:41 Ovalocytes 1+ 09/08/16 06:41 RBC Morph Micro Appear NORMAL (NORMAL) 09/10/16 06:36 PT 9.8 SECONDS (9.5-11.5) 08/31/16 08:20 INR 0.99 (0.5-1.4) 08/31/16 08:20 Specimen Source Arterial 08/31/16 07:36 Sample Site Right Radial 08/31/16 07:36 pH 7.42 (7.35-7.45) 08/31/16 07:36 pCO2 42.0 mmHg (35.0-45.0) 08/31/16 07:36 pO2 53.0 mmHg (80.0-100.0) L 08/31/16 07:36 HCO3 27.2 mmol/L (20.0-26.0) H 08/31/16 07:36 Base Excess 2.4 mmol/L (-3.0-3.0) 08/31/16 07:36 O2 Saturation 88.0 % (92.0-100.0) L 08/31/16 07:36 Praveen Test YES 08/31/16 07:36 Vent Rate NA 08/31/16 07:36 Inspired O2 21 08/31/16 07:36 Tidal Volume NA 08/31/16 07:36 PEEP NA 08/31/16 07:36 Pressure (ins/psv/peep) NA 08/31/16 07:36 Critical Value SH 08/31/16 07:36 Sodium 140 mEq/L (136-145) 09/10/16 06:36 Potassium 4.8 mEq/L (3.5-5.1) 09/10/16 06:36 Chloride 108 mEq/L (98-107) H 09/10/16 06:36 Carbon Dioxide 29.5 mEq/L (21.0-31.0) 09/10/16 06:36 Anion Gap 7.3 (7.0-16.0) 09/10/16 06:36 BUN 34 mg/dL (7-25) H 09/10/16 06:36 Creatinine 0.5 mg/dL (0.7-1.3) L 09/10/16 06:36 Est GFR ( Amer) TNP 09/10/16 06:36 Est GFR (Non-Af Amer) TNP 09/10/16 06:36 BUN/Creatinine Ratio 68.0 09/10/16 06:36 Glucose 104 mg/dL (70-105) 09/10/16 06:36 POC Glucose 164 MG/DL (70-105) H 09/08/16 00:19 Hemoglobin A1c % 5.8 % (4.0-6.0) 09/03/16 09:20 Whole Bld Lactic Acid 1.32 mmol/L (0.60-1.99) 08/31/16 08:20 Calcium 8.2 mg/dL (8.6-10.3) L 09/10/16 06:36 Magnesium 2.2 mg/dL (1.9-2.7) 09/06/16 05:55 Total Bilirubin 0.3 mg/dL (0.3-1.0) 09/06/16 05:55 AST 12 U/L (13-39) L 09/06/16 05:55 ALT 53 U/L (7-52) H 09/06/16 05:55 Alkaline Phosphatase 60 U/L (34-104) 09/06/16 05:55 Troponin I 0.02 ng/mL (0.01-0.05) 08/31/16 08:20 B-Natriuretic Peptide 129.0 pg/mL (5.0-100.0) H 09/06/16 05:55 Total Protein 5.4 gm/dL (6.0-8.3) L 09/06/16 05:55 Albumin 2.7 gm/dL (4.2-5.5) L 09/06/16 05:55 Globulin 2.7 gm/dL 09/06/16 05:55 Albumin/Globulin Ratio 1.0 (1.0-1.8) 09/06/16 05:55 TSH 0.39 uIU/ml (0.34-5.60) 08/31/16 08:20 Urine Source CLEAN C 09/03/16 17:00 Urine Color YELLOW 09/03/16 17:00 Urine Clarity CLEAR (CLEAR) 09/03/16 17:00 Urine pH 6.5 09/03/16 17:00 Ur Specific [place] 1.015 (1.005-1.030) 09/03/16 17:00 Urine Protein NEGATIVE mg/dL (NEGATIVE) 09/03/16 17:00 Urine Glucose (UA) NEGATIVE mg/dL (NEGATIVE) 09/03/16 17:00 Urine Ketones NEGATIVE mg/dL (NEGATIVE) 09/03/16 17:00 Urine Blood NEGATIVE (NEGATIVE) 09/03/16 17:00 Urine Nitrate NEGATIVE (NEGATIVE) 09/03/16 17:00 Urine Bilirubin NEGATIVE (NEGATIVE) 09/03/16 17:00 Urine Urobilinogen 0.2 E.U./dL (0.2 - 1.0) 09/03/16 17:00 Ur Leukocyte Esterase NEGATIVE (NEGATIVE) 09/03/16 17:00 Urine RBC NONE SEEN /hpf (0-5) 09/03/16 17:00 Urine WBC NONE SEEN /hpf (0-5) 09/03/16 17:00 Ur Epithelial Cells NONE SEEN /lpf (FEW) 09/03/16 17:00 Urine Bacteria NONE SEEN /hpf (NONE SEEN) 09/03/16 17:00 Vancomycin Trough 17.3 ug/mL (10-20) 09/06/16 09:00 RPR NONREACTIVE (NONREACTIVE) 08/31/16 08:20 - Physical Exam Vitals and I&O: Vital Signs Temp 97.1 F 09/11/16 04:00 Pulse 58 09/11/16 08:51 Resp 18 09/11/16 07:19 BP 146/71 09/11/16 04:00 Pulse Ox 98 09/11/16 07:19 Intake & Output 09/10/16 09/11/16 09/11/16 18:59 06:59 18:59 Intake Total 1080 100 Output Total 2700 1500 Balance -1620 -1400 Intake: Oral 1080 100 Output: Urine 2700 1500 Other: # Bowel Movements 2 Stool Characteristics Formed Active Medications: Current Medications Acetaminophen (Tylenol) 650 mg PO Q4HR PRN PRN Reason: Pain or Fever >101 Stop: 10/30/16 09:31 Acetylcysteine (Mucomyst 20%) 2 ml HHN Q6HRT [facility] Stop: 10/30/16 18:59 Last Admin: 09/11/16 07:05 Dose: 2 ml Albuterol Sulfate (Albuterol 2.5mg/3ml Neb Ud) 2.5 mg HHN QIDRT [facility] Stop: 10/30/16 12:59 Last Admin: 09/11/16 07:05 Dose: 2.5 mg Amiodarone HCl (Cordarone) 200 mg PO DAILY [facility] Stop: 10/31/16 08:59 Last Admin: 09/11/16 08:51 Dose: 200 mg Aspirin (Aspirin Chewable) 81 mg PO DAILY [facility] Stop: 10/31/16 08:59 Last Admin: 09/11/16 08:52 Dose: 81 mg Atorvastatin Calcium (Lipitor) 10 mg PO HS [facility] PRN Reason: Protocol Stop: 10/30/16 20:59 Last Admin: 09/10/16 20:11 Dose: 10 mg Bisacodyl (Dulcolax 10 Mg Supp) 10 mg RC Q72H PRN PRN Reason: Constipation Stop: 10/30/16 09:31 Budesonide (Pulmicort) 0.5 mg HHN Q12HRT [facility] Stop: 10/30/16 09:44 Last Admin: 09/11/16 07:19 Dose: 0.5 mg Buspirone HCl (Buspar) 10 mg PO TID [facility] Stop: 10/30/16 13:59 Last Admin: 09/11/16 08:52 Dose: 10 mg Donepezil HCl (Aricept) 10 mg PO HS [facility] Stop: 10/30/16 20:59 Last Admin: 09/10/16 20:11 Dose: 10 mg Guaifenesin (Mucinex) 600 mg PO Q12HR PRN PRN Reason: Cough or Congestion Stop: 11/04/16 23:19 Ceftriaxone Sodium 2 gm/ (Sodium Chloride) 100 mls @ 100 mls/hr IV Q24H [facility] Stop: 11/03/16 13:59 Last Admin: 09/10/16 13:17 Dose: 100 mls/hr Fluconazole (Diflucan) 200 mg in 100 mls @ 100 mls/hr IV Q24HR [facility] Stop: 11/07/16 14:14 Last Admin: 09/10/16 14:48 Dose: 100 mls/hr Ipratropium [place] (Atrovent Neb 0.5mg/2.5ml) 0.5 mg HHN Q6HRT [facility] Stop: 11/02/16 00:59 Last Admin: 09/11/16 07:05 Dose: 0.5 mg Magnesium Hydroxide (Milk Of Magnesia) 30 ml PO HS PRN PRN Reason: Constipation Stop: 10/30/16 09:31 Montelukast Sodium (Singulair) 10 mg PO HS [facility] Stop: 10/30/16 20:59 Last Admin: 09/10/16 20:11 Dose: 10 mg Olanzapine (Zyprexa) 15 mg PO DAILY [facility] PRN Reason: Protocol Stop: 10/31/16 08:59 Last Admin: 09/11/16 08:52 Dose: 15 mg Ondansetron HCl (Zofran) 4 mg IV Q8H PRN PRN Reason: Nausea / Vomiting Stop: 10/30/16 09:34 Prednisone (Deltasone) 20 mg PO BID [facility] Stop: 09/14/16 16:59 Last Admin: 09/11/16 08:52 Dose: 20 mg Sodium Phosphate (Fleet Enema) 135 ml RC PRN PRN PRN Reason: Constipation Stop: 10/30/16 09:31 Tamsulosin HCl (Flomax) 0.4 mg PO HS [facility] Stop: 10/30/16 20:59 Last Admin: 09/10/16 20:11 Dose: 0.4 mg General: alert HEENT: NC/AT Neck: Supple Lungs: CTAB Cardiovascular: RRR, Normal S1, Normal S2, without murmur Abdomen: soft non-tender, non-distended Neurological: no change - Procedures Procedures: Procedures Procedure Code Date ASSISTANCE WITH RESPIRATORY VENTILATION, <24 HRS, CPAP [id number] 06/29/16 EXCISION OF DUODENUM, ENDO, DIAGN [id number] 07/18/16 EXCISION OF ESOPHAGUS, ENDO, DIAGN [id number] 07/18/16 EXCISION OF STOMACH, ENDO, DIAGN [id number] 07/18/16 POS AIRWAY PRESSURE CPAP [id number] 06/29/16 Internal Medicine Assmt/Plan - Assessment Assessment: Pneumonia Copd exacerbation Respiratory Failure htn dyslipidemia dementia - Plan Plan: f/u labs bronchodilators continue ivabx supplemental o2 cpm Nutritional Asmnt/Malnutr-PDOC - Dietary Evaluation Malnutrition Findings (Please click <Entered> for more info): Nutritional Asmnt/Malnutrition Start: 09/02/16 14: 33 Text: Status: Complete Freq: Document 09/02/16 14:34 GSUN (Rec: 09/02/16 14:52 [id number] [email or web address]) Nutritional Asmnt/Malnutrition Patient General Information Nutritional Screening High Risk Screening Diagnosis Pneumonia, acute respiratory failure, COPD exacerbation Pertinent Medical Hx/Surgical Hx HTN, CAD, asthma, COPD, dyslipidemia, PUD, GERD, dementia Subjective Information 75yo M from SNF. Pt was alert, appeared anxious during visit . Pt was admitted here once in past July and twice in past June. Pt was ordered pureed + nectar thick during previous two stays. Most recent swallow eval 06/26/16 ST recommended mech soft + nectar thick. Discussed with pt regarding diet texture and tolerance, pt denied difficulties chewing/ swallowing and expressed preference for current [facility] soft ground. Encouraged pt to inform RN if any diet texture intolerance noted, pt understood. PO intake 100% all 3 meals yesterday 09/01. Unable to lower pt's head for bedscale due to pt appeared anxious. Current Diet Order/ Nutrition Support [facility] soft ground + nectar thick Pertinent Medications Dulcolax, D5, MOM, Solu-Medrol , Vancomycin, Zofran, Fleet Enema Pertinent Labs Reviewed. Glucose 105, 143, 145 Nutritional Hx/Data Height 5 ft 8 in Height (Calculated Centimeters) 172.7 Current Weight (lbs) 162 lb Weight (Calculated Kilograms) 73.5 Weight (Calculated Grams) 58188.0 Usual body Weight (lbs) 161 [place] Body Weight 154lb ([place]) Recent Weight Change No Weight Status Approriate GI Symptoms Food Allergies No Cultural/Ethnic/Mormonism Belief Unknown. Usual diet at home Unknown. Skin Integrity/Comment: Ruddy [place]. Skin intact. Current %PO Good (75-100%) Estimated Nutritional Goals BEE in Kcals: Using Current wt Calories/Kcals/Kg 30-35kcal/kg Kcals Calculated 2205-2573kcal Protein: Using Current wt Protein g/k.2-1.4g/kg Protein Calculated 88-103g/kg Fluid: ml 2205-2573ml (1ml/kcal) Nutritional Problem 1. Problem Problem Increased kcal and prot needs related to Etiology hypermetabolic stated aeb Signs/Symptoms: pneumonia, COPD exacerbation, acute respiratory failure Intervention/Recommendation Comments 1. [facility] + necatar thick diet ( refer to subjective information in nutrition assessment). Continue to monitor and supervise during meal time. Expected Outcomes/Goals Expected Outcomes/Goals 1. PO intake to meet at least 75% of estimated nutritional needs. Physician Parameters for PEM Serum Albumin (g/dl) 3.5 - 5.0 (Normal)
[2016-09-11] MEDS: cefTRIAXone 2 GM in Sodium Chloride 0.9% 100 ML IV SCH (13:25)
[2016-09-11] MEDS: Fluconazole 200mg/100mL 200 MG/100 ML BAG IV SCH (13:26)
[2016-09-11] MEDS: Atorvastatin Calcium 10 MG TAB PO SCH (21:37)
[2016-09-12] MEDS: Ipratropium Neb 0.5 mg/2.5 mL UD HHN SCH ×4 (00:27→19:16)
[2016-09-12] MEDS: Albuterol Nebulizer 2.5mg/3mL HHN SCH ×3 (06:51→19:16)
[2016-09-12] MEDS: Budesonide 0.5 Mg/2 mL Ud HHN SCH ×2 (06:56→19:16)
[2016-09-12 06:59] LABS: HEMATOCRIT 36.1 % (39.0-49.0); HEMOGLOBIN 12.3 gm/dL (12.6-17.4); MEAN CELL VOLUME 86.3 fl (80-99); MEAN CORPUSCULAR HEMOGLOBIN 29.3 pg (27.0-31.0); MEAN PLATELET VOLUME 8.2 fl; PLATELET COUNT 187 Th/cmm (150-400); RED BLOOD COUNT 4.18 Mil/cmm (3.80-5.80); RED CELL DISTRIBUTION WIDTH 14.5 % (11.5-20.0)
[2016-09-12 07:14] LABS: WHITE BLOOD COUNT 19.3 Th/cmm (4.8-10.8)
[2016-09-12 07:17] LABS: ANION GAP 7.5 (7.0-16.0); BUN - UREA NITROGEN 26 mg/dL (7-25); CALCIUM SERUM 8.3 mg/dL (8.6-10.3); CARBON DIOXIDE 29.1 mEq/L (21.0-31.0); CHLORIDE 107 mEq/L (98-107); CREATININE - SERUM 0.5 mg/dL (0.7-1.3); GLUCOSE 101 mg/dL (70-105); POTASSIUM SERUM 4.6 mEq/L (3.5-5.1); SODIUM SERUM 139 mEq/L (136-145)
[2016-09-12 08:16] LABS: BAND NEUTROPHILE 4 % (0-10); NEUTROPHILS 85 % (40-80); TOTAL CELLS COUNTED 100
[2016-09-12 08:17] LABS: PLATELET ESTIMATE ADEQUATE (NORMAL); PLATELET MORPHOLOGY NORMAL (NORMAL)
[2016-09-12] MEDS: Aspirin 81mg Chewable Tab PO SCH (09:10)
--- NOTE | 2016-09-12 11:17 | Internal Medicine Prog Note ---
Internal Medicine Subjective - Subjective Service Date: 09/12/16 Patient seen and examined:: with staff Patient is:: awake Patient Complaints of:: congestion Per staff patient is:: no adverse event Internal Medicine Objective - Results Result Diagrams: 09/12/16 05:55 09/12/16 05:55 Recent Labs: Laboratory Last Values WBC 19.3 Th/cmm (4.8-10.8) H D 09/12/16 05:55 RBC 4.18 Mil/cmm (3.80-5.80) 09/12/16 05:55 Hgb 12.3 gm/dL (12.6-17.4) L 09/12/16 05:55 Hct 36.1 % (39.0-49.0) L 09/12/16 05:55 MCV 86.3 fl (80-99) 09/12/16 05:55 MCH 29.3 pg (27.0-31.0) 09/12/16 05:55 MCHC Differential 34.0 pg (28.0-36.0) 09/12/16 05:55 RDW 14.5 % (11.5-20.0) 09/12/16 05:55 Plt Count 187 Th/cmm (150-400) 09/12/16 05:55 MPV 8.2 fl 09/12/16 05:55 Band Neutrophils % 4 % (0-10) 09/12/16 05:55 Neutrophils (Manual) 85 % (40-80) H 09/12/16 05:55 Lymphocytes 9 % (20-50) L 09/12/16 05:55 Monocytes 2 % (2-10) 09/12/16 05:55 Eosinophils 1 % (0-5) 09/09/16 07:39 Basophils 1 % (0-3) 09/09/16 07:39 Platelet Estimate ADEQUATE (NORMAL) 09/12/16 05:55 Platelet Morphology NORMAL (NORMAL) 09/12/16 05:55 Poikilocytosis 1+ 09/08/16 06:41 Anisocytosis 1+ 09/08/16 06:41 Ovalocytes 1+ 09/08/16 06:41 RBC Morph Micro Appear NORMAL (NORMAL) 09/12/16 05:55 PT 9.8 SECONDS (9.5-11.5) 08/31/16 08:20 INR 0.99 (0.5-1.4) 08/31/16 08:20 Specimen Source Arterial 08/31/16 07:36 Sample Site Right Radial 08/31/16 07:36 pH 7.42 (7.35-7.45) 08/31/16 07:36 pCO2 42.0 mmHg (35.0-45.0) 08/31/16 07:36 pO2 53.0 mmHg (80.0-100.0) L 08/31/16 07:36 HCO3 27.2 mmol/L (20.0-26.0) H 08/31/16 07:36 Base Excess 2.4 mmol/L (-3.0-3.0) 08/31/16 07:36 O2 Saturation 88.0 % (92.0-100.0) L 08/31/16 07:36 Praveen Test YES 08/31/16 07:36 Vent Rate NA 08/31/16 07:36 Inspired O2 21 08/31/16 07:36 Tidal Volume NA 08/31/16 07:36 PEEP NA 08/31/16 07:36 Pressure (ins/psv/peep) NA 08/31/16 07:36 Critical Value SH 08/31/16 07:36 Sodium 139 mEq/L (136-145) 09/12/16 05:55 Potassium 4.6 mEq/L (3.5-5.1) 09/12/16 05:55 Chloride 107 mEq/L (98-107) 09/12/16 05:55 Carbon Dioxide 29.1 mEq/L (21.0-31.0) 09/12/16 05:55 Anion Gap 7.5 (7.0-16.0) 09/12/16 05:55 BUN 26 mg/dL (7-25) H 09/12/16 05:55 Creatinine 0.5 mg/dL (0.7-1.3) L 09/12/16 05:55 Est GFR ( Amer) TNP 09/12/16 05:55 Est GFR (Non-Af Amer) TNP 09/12/16 05:55 BUN/Creatinine Ratio 52.0 09/12/16 05:55 Glucose 101 mg/dL (70-105) 09/12/16 05:55 POC Glucose 164 MG/DL (70-105) H 09/08/16 00:19 Hemoglobin A1c % 5.8 % (4.0-6.0) 09/03/16 09:20 Whole Bld Lactic Acid 1.32 mmol/L (0.60-1.99) 08/31/16 08:20 Calcium 8.3 mg/dL (8.6-10.3) L 09/12/16 05:55 Magnesium 2.2 mg/dL (1.9-2.7) 09/06/16 05:55 Total Bilirubin 0.3 mg/dL (0.3-1.0) 09/06/16 05:55 AST 12 U/L (13-39) L 09/06/16 05:55 ALT 53 U/L (7-52) H 09/06/16 05:55 Alkaline Phosphatase 60 U/L (34-104) 09/06/16 05:55 Troponin I 0.02 ng/mL (0.01-0.05) 08/31/16 08:20 B-Natriuretic Peptide 129.0 pg/mL (5.0-100.0) H 09/06/16 05:55 Total Protein 5.4 gm/dL (6.0-8.3) L 09/06/16 05:55 Albumin 2.7 gm/dL (4.2-5.5) L 09/06/16 05:55 Globulin 2.7 gm/dL 09/06/16 05:55 Albumin/Globulin Ratio 1.0 (1.0-1.8) 09/06/16 05:55 TSH 0.39 uIU/ml (0.34-5.60) 08/31/16 08:20 Urine Source CLEAN C 09/03/16 17:00 Urine Color YELLOW 09/03/16 17:00 Urine Clarity CLEAR (CLEAR) 09/03/16 17:00 Urine pH 6.5 09/03/16 17:00 Ur Specific [place] 1.015 (1.005-1.030) 09/03/16 17:00 Urine Protein NEGATIVE mg/dL (NEGATIVE) 09/03/16 17:00 Urine Glucose (UA) NEGATIVE mg/dL (NEGATIVE) 09/03/16 17:00 Urine Ketones NEGATIVE mg/dL (NEGATIVE) 09/03/16 17:00 Urine Blood NEGATIVE (NEGATIVE) 09/03/16 17:00 Urine Nitrate NEGATIVE (NEGATIVE) 09/03/16 17:00 Urine Bilirubin NEGATIVE (NEGATIVE) 09/03/16 17:00 Urine Urobilinogen 0.2 E.U./dL (0.2 - 1.0) 09/03/16 17:00 Ur Leukocyte Esterase NEGATIVE (NEGATIVE) 09/03/16 17:00 Urine RBC NONE SEEN /hpf (0-5) 09/03/16 17:00 Urine WBC NONE SEEN /hpf (0-5) 09/03/16 17:00 Ur Epithelial Cells NONE SEEN /lpf (FEW) 09/03/16 17:00 Urine Bacteria NONE SEEN /hpf (NONE SEEN) 09/03/16 17:00 Vancomycin Trough 17.3 ug/mL (10-20) 09/06/16 09:00 RPR NONREACTIVE (NONREACTIVE) 08/31/16 08:20 - Physical Exam Vitals and I&O: Vital Signs Temp 97.8 F 09/12/16 04:00 Pulse 55 09/12/16 09:11 Resp 18 09/12/16 07:02 BP 142/71 09/12/16 04:00 Pulse Ox 98 09/12/16 07:02 Intake & Output 09/11/16 09/12/16 09/12/16 18:59 06:59 18:59 Intake Total 1500 Output Total 1700 Balance -200 Intake: Oral 1500 Output: Urine 1700 Other: # Bowel Movements 1 Active Medications: Current Medications Acetaminophen (Tylenol) 650 mg PO Q4HR PRN PRN Reason: Pain or Fever >101 Stop: 10/30/16 09:31 Acetylcysteine (Mucomyst 20%) 2 ml HHN Q6HRT [facility] Stop: 10/30/16 18:59 Last Admin: 09/12/16 06:51 Dose: 2 ml Albuterol Sulfate (Albuterol 2.5mg/3ml Neb Ud) 2.5 mg HHN QIDRT [facility] Stop: 10/30/16 12:59 Last Admin: 09/12/16 06:51 Dose: 2.5 mg Amiodarone HCl (Cordarone) 200 mg PO DAILY [facility] Stop: 10/31/16 08:59 Last Admin: 09/12/16 09:11 Dose: 200 mg Aspirin (Aspirin Chewable) 81 mg PO DAILY [facility] Stop: 10/31/16 08:59 Last Admin: 09/12/16 09:10 Dose: 81 mg Atorvastatin Calcium (Lipitor) 10 mg PO HS [facility] PRN Reason: Protocol Stop: 10/30/16 20:59 Last Admin: 09/11/16 21:37 Dose: 10 mg Bisacodyl (Dulcolax 10 Mg Supp) 10 mg RC Q72H PRN PRN Reason: Constipation Stop: 10/30/16 09:31 Budesonide (Pulmicort) 0.5 mg HHN Q12HRT [facility] Stop: 10/30/16 09:44 Last Admin: 09/12/16 06:56 Dose: 0.5 mg Buspirone HCl (Buspar) 10 mg PO TID [facility] Stop: 10/30/16 13:59 Last Admin: 09/12/16 09:11 Dose: 10 mg Donepezil HCl (Aricept) 10 mg PO HS [facility] Stop: 10/30/16 20:59 Last Admin: 09/11/16 21:38 Dose: 10 mg Guaifenesin (Mucinex) 600 mg PO Q12HR PRN PRN Reason: Cough or Congestion Stop: 11/04/16 23:19 Ceftriaxone Sodium 2 gm/ (Sodium Chloride) 100 mls @ 100 mls/hr IV Q24H [facility] Stop: 11/03/16 13:59 Last Admin: 09/11/16 13:25 Dose: 100 mls/hr Fluconazole (Diflucan) 200 mg in 100 mls @ 100 mls/hr IV Q24HR [facility] Stop: 11/07/16 14:14 Last Admin: 09/11/16 13:26 Dose: 100 mls/hr Ipratropium [place] (Atrovent Neb 0.5mg/2.5ml) 0.5 mg HHN Q6HRT [facility] Stop: 11/02/16 00:59 Last Admin: 09/12/16 06:51 Dose: 0.5 mg Magnesium Hydroxide (Milk Of Magnesia) 30 ml PO HS PRN PRN Reason: Constipation Stop: 10/30/16 09:31 Montelukast Sodium (Singulair) 10 mg PO HS [facility] Stop: 10/30/16 20:59 Last Admin: 09/11/16 21:37 Dose: 10 mg Olanzapine (Zyprexa) 15 mg PO DAILY [facility] PRN Reason: Protocol Stop: 10/31/16 08:59 Last Admin: 09/12/16 09:10 Dose: 15 mg Ondansetron HCl (Zofran) 4 mg IV Q8H PRN PRN Reason: Nausea / Vomiting Stop: 10/30/16 09:34 Prednisone (Deltasone) 20 mg PO BID [facility] Stop: 09/14/16 16:59 Last Admin: 09/12/16 09:10 Dose: 20 mg Sodium Phosphate (Fleet Enema) 135 ml RC PRN PRN PRN Reason: Constipation Stop: 10/30/16 09:31 Tamsulosin HCl (Flomax) 0.4 mg PO HS [facility] Stop: 10/30/16 20:59 Last Admin: 09/11/16 21:37 Dose: 0.4 mg General: alert HEENT: NC/AT, PERRLA Neck: Supple Lungs: CTAB Cardiovascular: RRR, Normal S1, Normal S2, without murmur Abdomen: soft non-tender, non-distended, positive bowel sound - Procedures Procedures: Procedures Procedure Code Date ASSISTANCE WITH RESPIRATORY VENTILATION, <24 HRS, CPAP [id number] 06/29/16 EXCISION OF DUODENUM, ENDO, DIAGN [id number] 07/18/16 EXCISION OF ESOPHAGUS, ENDO, DIAGN [id number] 07/18/16 EXCISION OF STOMACH, ENDO, DIAGN [id number] 07/18/16 POS AIRWAY PRESSURE CPAP [id number] 06/29/16 Internal Medicine Assmt/Plan - Assessment Assessment: Pneumonia Copd exacerbation Respiratory Failure htn dyslipidemia dementia - Plan Plan: bronchodilators continue ivabx supplemental o2 cpm Nutritional Asmnt/Malnutr-PDOC - Dietary Evaluation Malnutrition Findings (Please click <Entered> for more info): Nutritional Asmnt/Malnutrition Start: 09/02/16 14: 33 Text: Status: Complete Freq: Document 09/02/16 14:34 GSUN (Rec: 09/02/16 14:52 GSUN [email or web address]) Nutritional Asmnt/Malnutrition Patient General Information Nutritional Screening High Risk Screening Diagnosis Pneumonia, acute respiratory failure, COPD exacerbation Pertinent Medical Hx/Surgical Hx HTN, CAD, asthma, COPD, dyslipidemia, PUD, GERD, dementia Subjective Information 75yo M from SNF. Pt was alert, appeared anxious during visit . Pt was admitted here once in past July and twice in past June. Pt was ordered pureed + nectar thick during previous two stays. Most recent swallow eval 06/26/16 ST recommended mech soft + nectar thick. Discussed with pt regarding diet texture and tolerance, pt denied difficulties chewing/ swallowing and expressed preference for current [facility] soft ground. Encouraged pt to inform RN if any diet texture intolerance noted, pt understood. PO intake 100% all 3 meals yesterday 09/01. Unable to lower pt's head for bedscale due to pt appeared anxious. Current Diet Order/ Nutrition Support [facility] soft ground + nectar thick Pertinent Medications Dulcolax, D5, MOM, Solu-Medrol , Vancomycin, Zofran, Fleet Enema Pertinent Labs Reviewed. Glucose 105, 143, 145 Nutritional Hx/Data Height 5 ft 8 in Height (Calculated Centimeters) 172.7 Current Weight (lbs) 162 lb Weight (Calculated Kilograms) 73.5 Weight (Calculated Grams) 16876.0 Usual body Weight (lbs) 161 [place] Body Weight 154lb ([place]) Recent Weight Change No Weight Status Approriate GI Symptoms Food Allergies No Cultural/Ethnic/Taoism Belief Unknown. Usual diet at home Unknown. Skin Integrity/Comment: Ruddy 11. Skin intact. Current %PO Good (75-100%) Estimated Nutritional Goals BEE in Kcals: Using Current wt Calories/Kcals/Kg 30-35kcal/kg Kcals Calculated 2205-2573kcal Protein: Using Current wt Protein g/k.2-1.4g/kg Protein Calculated 88-103g/kg Fluid: ml 2205-2573ml (1ml/kcal) Nutritional Problem 1. Problem Problem Increased kcal and prot needs related to Etiology hypermetabolic stated aeb Signs/Symptoms: pneumonia, COPD exacerbation, acute respiratory failure Intervention/Recommendation Comments 1. Continue with mech soft ground + necatar thick diet ( refer to subjective information in nutrition assessment). Continue to monitor and supervise during meal time. Expected Outcomes/Goals Expected Outcomes/Goals 1. PO intake to meet at least 75% of estimated nutritional needs. Physician Parameters for PEM Serum Albumin (g/dl) 3.5 - 5.0 (Normal)
--- NOTE | 2016-09-12 12:51 | Diagnostic Imaging Report ---
Portable chest x-ray HISTORY: Shortness of breath Compared with prior exam of September 10, 2016, there remains elevation of the left hemidiaphragm. No definite focal pulmonary parenchymal processes are seen. Question small left pleural effusion. Cardiomegaly and surgical changes noted. IMPRESSION: 1. No significant change in the cardiopulmonary status.
[2016-09-12] MEDS: cefTRIAXone 2 GM in Sodium Chloride 0.9% 100 ML IV SCH (13:06)
[2016-09-12] MEDS: Fluconazole 200mg/100mL 200 MG/100 ML BAG IV SCH (14:25)
[2016-09-12] MEDS: Atorvastatin Calcium 10 MG TAB PO SCH (21:27)
[2016-09-13] MEDS: Ipratropium Neb 0.5 mg/2.5 mL UD HHN SCH ×3 (01:31→18:46)
[2016-09-13 06:52] LABS: HEMATOCRIT 33.6 % (39.0-49.0); HEMOGLOBIN 11.6 gm/dL (12.6-17.4); MEAN CELL VOLUME 86.2 fl (80-99); MEAN CORPUSCULAR HEMOGLOBIN 29.7 pg (27.0-31.0); MEAN CORPUSCULAR HGB CONC 34.4 pg (28.0-36.0); PLATELET COUNT 186 Th/cmm (150-400); RED CELL DISTRIBUTION WIDTH 14.7 % (11.5-20.0)
[2016-09-13] MEDS: Albuterol Nebulizer 2.5mg/3mL HHN SCH ×4 (06:56→18:46)
[2016-09-13] MEDS: Budesonide 0.5 Mg/2 mL Ud HHN SCH ×2 (06:56→18:46)
[2016-09-13 07:06] LABS: ANION GAP 6.8 (7.0-16.0); BUN - UREA NITROGEN 24 mg/dL (7-25); CALCIUM SERUM 8.4 mg/dL (8.6-10.3); CARBON DIOXIDE 29.4 mEq/L (21.0-31.0); CHLORIDE 110 mEq/L (98-107); CREATININE - SERUM 0.5 mg/dL (0.7-1.3); GLUCOSE 86 mg/dL (70-105); POTASSIUM SERUM 4.2 mEq/L (3.5-5.1); SODIUM SERUM 142 mEq/L (136-145)
[2016-09-13 08:25] LABS: WHITE BLOOD COUNT 15.1 Th/cmm (4.8-10.8)
[2016-09-13] MEDS: Aspirin 81mg Chewable Tab PO SCH (08:37)
[2016-09-13 11:25] LABS: ANISOCYTOSIS 1+; NEUTROPHILS 88 % (40-80); PLATELET ESTIMATE ADEQUATE (NORMAL); PLATELET MORPHOLOGY NORMAL (NORMAL); TOTAL CELLS COUNTED 100
--- NOTE | 2016-09-13 12:43 | Internal Medicine Prog Note ---
Internal Medicine Subjective - Subjective Patient seen and examined:: with staff, chart reviewed Patient is:: verbal, interactive Patient Complaints of:: congestion Per staff patient is:: poor appetite, noncompliant Internal Medicine Objective - Results Result Diagrams: 09/13/16 06:22 09/13/16 06:22 Recent Labs: Laboratory Last Values WBC 15.1 Th/cmm (4.8-10.8) H D 09/13/16 06:22 RBC 3.90 Mil/cmm (3.80-5.80) 09/13/16 06:22 Hgb 11.6 gm/dL (12.6-17.4) L 09/13/16 06:22 Hct 33.6 % (39.0-49.0) L 09/13/16 06:22 MCV 86.2 fl (80-99) 09/13/16 06:22 MCH 29.7 pg (27.0-31.0) 09/13/16 06:22 MCHC Differential 34.4 pg (28.0-36.0) 09/13/16 06:22 RDW 14.7 % (11.5-20.0) 09/13/16 06:22 Plt Count 186 Th/cmm (150-400) 09/13/16 06:22 MPV 8.0 fl 09/13/16 06:22 Band Neutrophils % 4 % (0-10) 09/12/16 05:55 Neutrophils (Manual) 88 % (40-80) H 09/13/16 06:22 Lymphocytes 9 % (20-50) L 09/13/16 06:22 Monocytes 3 % (2-10) 09/13/16 06:22 Eosinophils 1 % (0-5) 09/09/16 07:39 Basophils 1 % (0-3) 09/09/16 07:39 Platelet Estimate ADEQUATE (NORMAL) 09/13/16 06:22 Platelet Morphology NORMAL (NORMAL) 09/13/16 06:22 Poikilocytosis 1+ 09/08/16 06:41 Anisocytosis 1+ 09/13/16 06:22 Ovalocytes 1+ 09/08/16 06:41 RBC Morph Micro Appear ABNORMAL (NORMAL) 09/13/16 06:22 PT 9.8 SECONDS (9.5-11.5) 08/31/16 08:20 INR 0.99 (0.5-1.4) 08/31/16 08:20 Specimen Source Arterial 08/31/16 07:36 Sample Site Right Radial 08/31/16 07:36 pH 7.42 (7.35-7.45) 08/31/16 07:36 pCO2 42.0 mmHg (35.0-45.0) 08/31/16 07:36 pO2 53.0 mmHg (80.0-100.0) L 08/31/16 07:36 HCO3 27.2 mmol/L (20.0-26.0) H 08/31/16 07:36 Base Excess 2.4 mmol/L (-3.0-3.0) 08/31/16 07:36 O2 Saturation 88.0 % (92.0-100.0) L 08/31/16 07:36 Praveen Test YES 08/31/16 07:36 Vent Rate NA 08/31/16 07:36 Inspired O2 21 08/31/16 07:36 Tidal Volume NA 08/31/16 07:36 PEEP NA 08/31/16 07:36 Pressure (ins/psv/peep) NA 08/31/16 07:36 Critical Value SH 08/31/16 07:36 Sodium 142 mEq/L (136-145) 09/13/16 06:22 Potassium 4.2 mEq/L (3.5-5.1) 09/13/16 06:22 Chloride 110 mEq/L (98-107) H 09/13/16 06:22 Carbon Dioxide 29.4 mEq/L (21.0-31.0) 09/13/16 06:22 Anion Gap 6.8 (7.0-16.0) L 09/13/16 06:22 BUN 24 mg/dL (7-25) 09/13/16 06:22 Creatinine 0.5 mg/dL (0.7-1.3) L 09/13/16 06:22 Est GFR ( Amer) TNP 09/13/16 06:22 Est GFR (Non-Af Amer) TNP 09/13/16 06:22 BUN/Creatinine Ratio 48.0 09/13/16 06:22 Glucose 86 mg/dL (70-105) 09/13/16 06:22 POC Glucose 164 MG/DL (70-105) H 09/08/16 00:19 Hemoglobin A1c % 5.8 % (4.0-6.0) 09/03/16 09:20 Whole Bld Lactic Acid 1.32 mmol/L (0.60-1.99) 08/31/16 08:20 Calcium 8.4 mg/dL (8.6-10.3) L 09/13/16 06:22 Magnesium 2.2 mg/dL (1.9-2.7) 09/06/16 05:55 Total Bilirubin 0.3 mg/dL (0.3-1.0) 09/06/16 05:55 AST 12 U/L (13-39) L 09/06/16 05:55 ALT 53 U/L (7-52) H 09/06/16 05:55 Alkaline Phosphatase 60 U/L (34-104) 09/06/16 05:55 Troponin I 0.02 ng/mL (0.01-0.05) 08/31/16 08:20 B-Natriuretic Peptide 129.0 pg/mL (5.0-100.0) H 09/06/16 05:55 Total Protein 5.4 gm/dL (6.0-8.3) L 09/06/16 05:55 Albumin 2.7 gm/dL (4.2-5.5) L 09/06/16 05:55 Globulin 2.7 gm/dL 09/06/16 05:55 Albumin/Globulin Ratio 1.0 (1.0-1.8) 09/06/16 05:55 TSH 0.39 uIU/ml (0.34-5.60) 08/31/16 08:20 Urine Source CLEAN C 09/03/16 17:00 Urine Color YELLOW 09/03/16 17:00 Urine Clarity CLEAR (CLEAR) 09/03/16 17:00 Urine pH 6.5 09/03/16 17:00 Ur Specific [place] 1.015 (1.005-1.030) 09/03/16 17:00 Urine Protein NEGATIVE mg/dL (NEGATIVE) 09/03/16 17:00 Urine Glucose (UA) NEGATIVE mg/dL (NEGATIVE) 09/03/16 17:00 Urine Ketones NEGATIVE mg/dL (NEGATIVE) 09/03/16 17:00 Urine Blood NEGATIVE (NEGATIVE) 09/03/16 17:00 Urine Nitrate NEGATIVE (NEGATIVE) 09/03/16 17:00 Urine Bilirubin NEGATIVE (NEGATIVE) 09/03/16 17:00 Urine Urobilinogen 0.2 E.U./dL (0.2 - 1.0) 09/03/16 17:00 Ur Leukocyte Esterase NEGATIVE (NEGATIVE) 09/03/16 17:00 Urine RBC NONE SEEN /hpf (0-5) 09/03/16 17:00 Urine WBC NONE SEEN /hpf (0-5) 09/03/16 17:00 Ur Epithelial Cells NONE SEEN /lpf (FEW) 09/03/16 17:00 Urine Bacteria NONE SEEN /hpf (NONE SEEN) 09/03/16 17:00 Vancomycin Trough 17.3 ug/mL (10-20) 09/06/16 09:00 RPR NONREACTIVE (NONREACTIVE) 08/31/16 08:20 - Physical Exam Vitals and I&O: Vital Signs Temp 97.6 F 09/13/16 08:00 Pulse 54 09/13/16 08:38 Resp 20 09/13/16 08:00 BP 136/65 09/13/16 08:00 Pulse Ox 97 09/13/16 08:00 Intake & Output 09/12/16 09/13/16 09/13/16 18:59 06:59 18:59 Intake Total 200 Balance 200 Intake: Intake, IV Amount 200 Fluconazole 200mg/100mL 100 200 mg In 100 ml @ 100 mls/hr IV Q24HR [facility] Rx#: [id number] [id number] 2 gm In 100 Sodium Chloride 0.9% 100 ml @ 100 mls/hr IV Q24H [facility] Rx#:[id number] Other: Stool Characteristics Soft Active Medications: Current Medications Acetaminophen (Tylenol) 650 mg PO Q4HR PRN PRN Reason: Pain or Fever >101 Stop: 10/30/16 09:31 Acetylcysteine (Mucomyst 20%) 2 ml HHN Q6HRT [facility] Stop: 10/30/16 18:59 Last Admin: 09/13/16 10:43 Dose: 2 ml Albuterol Sulfate (Albuterol 2.5mg/3ml Neb Ud) 2.5 mg HHN QIDRT [facility] Stop: 10/30/16 12:59 Last Admin: 09/13/16 10:42 Dose: 2.5 mg Amiodarone HCl (Cordarone) 200 mg PO DAILY [facility] Stop: 10/31/16 08:59 Last Admin: 09/13/16 08:38 Dose: 200 mg Aspirin (Aspirin Chewable) 81 mg PO DAILY [facility] Stop: 10/31/16 08:59 Last Admin: 09/13/16 08:37 Dose: 81 mg Atorvastatin Calcium (Lipitor) 10 mg PO HS [facility] PRN Reason: Protocol Stop: 10/30/16 20:59 Last Admin: 09/12/16 21:27 Dose: 10 mg Bisacodyl (Dulcolax 10 Mg Supp) 10 mg RC Q72H PRN PRN Reason: Constipation Stop: 10/30/16 09:31 Budesonide (Pulmicort) 0.5 mg HHN Q12HRT [facility] Stop: 10/30/16 09:44 Last Admin: 09/13/16 06:56 Dose: 0.5 mg Buspirone HCl (Buspar) 10 mg PO TID [facility] Stop: 10/30/16 13:59 Last Admin: 09/13/16 08:38 Dose: 10 mg Donepezil HCl (Aricept) 10 mg PO HS [facility] Stop: 10/30/16 20:59 Last Admin: 09/12/16 21:27 Dose: 10 mg Guaifenesin (Mucinex) 600 mg PO Q12HR PRN PRN Reason: Cough or Congestion Stop: 11/04/16 23:19 Ceftriaxone Sodium 2 gm/ (Sodium Chloride) 100 mls @ 100 mls/hr IV Q24H [facility] Stop: 11/03/16 13:59 Last Infusion: 09/12/16 15:38 Dose: Infused Fluconazole (Diflucan) 200 mg in 100 mls @ 100 mls/hr IV Q24HR [facility] Stop: 11/07/16 14:14 Last Infusion: 09/12/16 15:38 Dose: Infused Ipratropium [place] (Atrovent Neb 0.5mg/2.5ml) 0.5 mg HHN Q6HRT [facility] Stop: 11/02/16 00:59 Last Admin: 09/13/16 10:43 Dose: 0.5 mg Magnesium Hydroxide (Milk Of Magnesia) 30 ml PO HS PRN PRN Reason: Constipation Stop: 10/30/16 09:31 Montelukast Sodium (Singulair) 10 mg PO HS [facility] Stop: 10/30/16 20:59 Last Admin: 09/12/16 21:27 Dose: 10 mg Olanzapine (Zyprexa) 15 mg PO DAILY [facility] PRN Reason: Protocol Stop: 10/31/16 08:59 Last Admin: 09/13/16 08:36 Dose: 15 mg Ondansetron HCl (Zofran) 4 mg IV Q8H PRN PRN Reason: Nausea / Vomiting Stop: 10/30/16 09:34 Prednisone (Deltasone) 10 mg PO BID [facility] Stop: 09/17/16 12:24 Last Admin: 09/13/16 08:37 Dose: 10 mg Sodium Phosphate (Fleet Enema) 135 ml RC PRN PRN PRN Reason: Constipation Stop: 10/30/16 09:31 Tamsulosin HCl (Flomax) 0.4 mg PO HS [facility] Stop: 10/30/16 20:59 Last Admin: 09/12/16 21:27 Dose: 0.4 mg General: lethargic, congested, demented HEENT: NC/AT, PERRLA Neck: Supple Lungs: congested, rales, ronchi Cardiovascular: RRR, Normal S1, Normal S2 Abdomen: soft non-tender, globular, positive bowel sound Extremities: excoriation, contracture Neurological: disorganized, unable to follow command - Procedures Procedures: Procedures Procedure Code Date ASSISTANCE WITH RESPIRATORY VENTILATION, <24 HRS, CPAP [id number] 06/29/16 EXCISION OF DUODENUM, ENDO, DIAGN [id number] 07/18/16 EXCISION OF ESOPHAGUS, ENDO, DIAGN [id number] 07/18/16 EXCISION OF STOMACH, ENDO, DIAGN [id number] 07/18/16 POS AIRWAY PRESSURE CPAP 91557 06/29/16 Internal Medicine Assmt/Plan - Assessment Assessment: Pneumonia acute Copd exacerbation acute Respiratory Failure htn dyslipidemia dementia debility, functional quad leukocytosis - Plan Plan: cont on iv abx will decrease iv steroid ct chest noted will confer w pulm sudhakar rn Nutritional Asmnt/Malnutr-PDOC - Dietary Evaluation Malnutrition Findings (Please click <Entered> for more info): Nutritional Asmnt/Malnutrition Start: 09/02/16 14: 33 Text: Status: Complete Freq: Document 09/02/16 14:34 GSUN (Rec: 09/02/16 14:52 GSUN [email or web address]) Nutritional Asmnt/Malnutrition Patient General Information Nutritional Screening High Risk Screening Diagnosis Pneumonia, acute respiratory failure, COPD exacerbation Pertinent Medical Hx/Surgical Hx HTN, CAD, asthma, COPD, dyslipidemia, PUD, GERD, dementia Subjective Information 75yo M from SNF. Pt was alert, appeared anxious during visit . Pt was admitted here once in past July and twice in past June. Pt was ordered pureed + nectar thick during previous two stays. Most recent swallow eval 06/26/16 ST recommended mech soft + nectar thick. Discussed with pt regarding diet texture and tolerance, pt denied difficulties chewing/ swallowing and expressed preference for current mech soft ground. Encouraged pt to inform RN if any diet texture intolerance noted, pt understood. PO intake 100% all 3 meals yesterday 09/01. Unable to lower pt's head for bedscale due to pt appeared anxious. Current Diet Order/ Nutrition Support Mech soft ground + nectar thick Pertinent Medications Dulcolax, D5, MOM, Solu-Medrol , Vancomycin, Zofran, Fleet Enema Pertinent Labs Reviewed. Glucose 105, 143, 145 Nutritional Hx/Data Height 1.73 m Height (Calculated Centimeters) 172.7 Current Weight (lbs) 73.482 kg Weight (Calculated Kilograms) 73.5 Weight (Calculated Grams) 30275.0 Usual body Weight (lbs) 161 [place] Body Weight 154lb ([place]) Recent Weight Change No Weight Status Approriate GI Symptoms Food Allergies No Cultural/Ethnic/P[employer]al Belief Unknown. Usual diet at home Unknown. Skin Integrity/Comment: Ruddy 11. Skin intact. Current %PO Good (75-100%) Estimated Nutritional Goals BEE in Kcals: Using Current wt Calories/Kcals/Kg 30-35kcal/kg Kcals Calculated 2205-2573kcal Protein: Using Current wt Protein g/k.2-1.4g/kg Protein Calculated 88-103g/kg Fluid: ml 2205-2573ml (1ml/kcal) Nutritional Problem 1. Problem Problem Increased kcal and prot needs related to Etiology hypermetabolic stated aeb Signs/Symptoms: pneumonia, COPD exacerbation, acute respiratory failure Intervention/Recommendation Comments 1. Continue with mech soft ground + necatar thick diet ( refer to subjective information in nutrition assessment). Continue to monitor and supervise during meal time. Expected Outcomes/Goals Expected Outcomes/Goals 1. PO intake to meet at least 75% of estimated nutritional needs. Physician Parameters for PEM Serum Albumin (g/dl) 3.5 - 5.0 (Normal)
[2016-09-13] MEDS: cefTRIAXone 2 GM in Sodium Chloride 0.9% 100 ML IV SCH (13:00)
[2016-09-13] MEDS: Fluconazole 200mg/100mL 200 MG/100 ML BAG IV SCH (14:05)
[2016-09-13] MEDS: Atorvastatin Calcium 10 MG TAB PO SCH (21:31)
[2016-09-14] MEDS: Ipratropium Neb 0.5 mg/2.5 mL UD HHN SCH ×4 (01:01→19:23)
[2016-09-14 06:00] LABS: % BASOPHILS 0.1 % (0.0-2.0); % EOSINOPHILS 0.7 % (0.0-5.0); % LYMPHOCYTES 9.4 % (20.0-50.0); % MONOCYTES 4.1 % (2.0-10.0); % NEUTROPHILS 85.7 % (40.0-80.0); HEMATOCRIT 34.3 % (39.0-49.0); HEMOGLOBIN 11.9 gm/dL (12.6-17.4); MEAN CELL VOLUME 85.9 fl (80-99); MEAN CORPUSCULAR HEMOGLOBIN 29.8 pg (27.0-31.0); MEAN CORPUSCULAR HGB CONC 34.7 pg (28.0-36.0); MEAN PLATELET VOLUME 8.1 fl; NEUTROPHILE ABSOLUTE 11.9 Th/cmm (1.8-8.0); PLATELET COUNT 180 Th/cmm (150-400); RED BLOOD COUNT 3.99 Mil/cmm (3.80-5.80); RED CELL DISTRIBUTION WIDTH 14.7 % (11.5-20.0)
[2016-09-14 06:36] LABS: WHITE BLOOD COUNT 13.9 Th/cmm (4.8-10.8)
[2016-09-14] MEDS: Albuterol Nebulizer 2.5mg/3mL HHN SCH ×4 (08:01→19:24)
[2016-09-14] MEDS: Aspirin 81mg Chewable Tab PO SCH (08:19)
--- NOTE | 2016-09-14 12:32 | Internal Medicine Prog Note ---
Internal Medicine Subjective - Subjective Service Date: 09/14/16 Patient seen and examined:: with staff Patient is:: awake Patient Complaints of:: congestion Per staff patient is:: no adverse event Internal Medicine Objective - Results Result Diagrams: 09/14/16 05:32 09/13/16 06:22 Recent Labs: Laboratory Last Values WBC 13.9 Th/cmm (4.8-10.8) H 09/14/16 05:32 RBC 3.99 Mil/cmm (3.80-5.80) 09/14/16 05:32 Hgb 11.9 gm/dL (12.6-17.4) L 09/14/16 05:32 Hct 34.3 % (39.0-49.0) L 09/14/16 05:32 MCV 85.9 fl (80-99) 09/14/16 05:32 MCH 29.8 pg (27.0-31.0) 09/14/16 05:32 MCHC Differential 34.7 pg (28.0-36.0) 09/14/16 05:32 RDW 14.7 % (11.5-20.0) 09/14/16 05:32 Plt Count 180 Th/cmm (150-400) 09/14/16 05:32 MPV 8.1 fl 09/14/16 05:32 Neutrophils % 85.7 % (40.0-80.0) H 09/14/16 05:32 Band Neutrophils % 4 % (0-10) 09/12/16 05:55 Lymphocytes % 9.4 % (20.0-50.0) L 09/14/16 05:32 Monocytes % 4.1 % (2.0-10.0) 09/14/16 05:32 Eosinophils % 0.7 % (0.0-5.0) 09/14/16 05:32 Basophils % 0.1 % (0.0-2.0) 09/14/16 05:32 Neutrophils (Manual) 88 % (40-80) H 09/13/16 06:22 Lymphocytes 9 % (20-50) L 09/13/16 06:22 Monocytes 3 % (2-10) 09/13/16 06:22 Eosinophils 1 % (0-5) 09/09/16 07:39 Basophils 1 % (0-3) 09/09/16 07:39 Platelet Estimate ADEQUATE (NORMAL) 09/13/16 06:22 Platelet Morphology NORMAL (NORMAL) 09/13/16 06:22 Poikilocytosis 1+ 09/08/16 06:41 Anisocytosis 1+ 09/13/16 06:22 Ovalocytes 1+ 09/08/16 06:41 RBC Morph Micro Appear ABNORMAL (NORMAL) 09/13/16 06:22 PT 9.8 SECONDS (9.5-11.5) 08/31/16 08:20 INR 0.99 (0.5-1.4) 08/31/16 08:20 Specimen Source Arterial 08/31/16 07:36 Sample Site Right Radial 08/31/16 07:36 pH 7.42 (7.35-7.45) 08/31/16 07:36 pCO2 42.0 mmHg (35.0-45.0) 08/31/16 07:36 pO2 53.0 mmHg (80.0-100.0) L 08/31/16 07:36 HCO3 27.2 mmol/L (20.0-26.0) H 08/31/16 07:36 Base Excess 2.4 mmol/L (-3.0-3.0) 08/31/16 07:36 O2 Saturation 88.0 % (92.0-100.0) L 08/31/16 07:36 Praveen Test YES 08/31/16 07:36 Vent Rate NA 08/31/16 07:36 Inspired O2 21 08/31/16 07:36 Tidal Volume NA 08/31/16 07:36 PEEP NA 08/31/16 07:36 Pressure (ins/psv/peep) NA 08/31/16 07:36 Critical Value SH 08/31/16 07:36 Sodium 142 mEq/L (136-145) 09/13/16 06:22 Potassium 4.2 mEq/L (3.5-5.1) 09/13/16 06:22 Chloride 110 mEq/L (98-107) H 09/13/16 06:22 Carbon Dioxide 29.4 mEq/L (21.0-31.0) 09/13/16 06:22 Anion Gap 6.8 (7.0-16.0) L 09/13/16 06:22 BUN 24 mg/dL (7-25) 09/13/16 06:22 Creatinine 0.5 mg/dL (0.7-1.3) L 09/13/16 06:22 Est GFR ( Amer) TNP 09/13/16 06:22 Est GFR (Non-Af Amer) TNP 09/13/16 06:22 BUN/Creatinine Ratio 48.0 09/13/16 06:22 Glucose 86 mg/dL (70-105) 09/13/16 06:22 POC Glucose 164 MG/DL (70-105) H 09/08/16 00:19 Hemoglobin A1c % 5.8 % (4.0-6.0) 09/03/16 09:20 Whole Bld Lactic Acid 1.32 mmol/L (0.60-1.99) 08/31/16 08:20 Calcium 8.4 mg/dL (8.6-10.3) L 09/13/16 06:22 Magnesium 2.2 mg/dL (1.9-2.7) 09/06/16 05:55 Total Bilirubin 0.3 mg/dL (0.3-1.0) 09/06/16 05:55 AST 12 U/L (13-39) L 09/06/16 05:55 ALT 53 U/L (7-52) H 09/06/16 05:55 Alkaline Phosphatase 60 U/L (34-104) 09/06/16 05:55 Troponin I 0.02 ng/mL (0.01-0.05) 08/31/16 08:20 B-Natriuretic Peptide 129.0 pg/mL (5.0-100.0) H 09/06/16 05:55 Total Protein 5.4 gm/dL (6.0-8.3) L 09/06/16 05:55 Albumin 2.7 gm/dL (4.2-5.5) L 09/06/16 05:55 Globulin 2.7 gm/dL 09/06/16 05:55 Albumin/Globulin Ratio 1.0 (1.0-1.8) 09/06/16 05:55 TSH 0.39 uIU/ml (0.34-5.60) 08/31/16 08:20 Urine Source CLEAN C 09/03/16 17:00 Urine Color YELLOW 09/03/16 17:00 Urine Clarity CLEAR (CLEAR) 09/03/16 17:00 Urine pH 6.5 09/03/16 17:00 Ur Specific [place] 1.015 (1.005-1.030) 09/03/16 17:00 Urine Protein NEGATIVE mg/dL (NEGATIVE) 09/03/16 17:00 Urine Glucose (UA) NEGATIVE mg/dL (NEGATIVE) 09/03/16 17:00 Urine Ketones NEGATIVE mg/dL (NEGATIVE) 09/03/16 17:00 Urine Blood NEGATIVE (NEGATIVE) 09/03/16 17:00 Urine Nitrate NEGATIVE (NEGATIVE) 09/03/16 17:00 Urine Bilirubin NEGATIVE (NEGATIVE) 09/03/16 17:00 Urine Urobilinogen 0.2 E.U./dL (0.2 - 1.0) 09/03/16 17:00 Ur Leukocyte Esterase NEGATIVE (NEGATIVE) 09/03/16 17:00 Urine RBC NONE SEEN /hpf (0-5) 09/03/16 17:00 Urine WBC NONE SEEN /hpf (0-5) 09/03/16 17:00 Ur Epithelial Cells NONE SEEN /lpf (FEW) 09/03/16 17:00 Urine Bacteria NONE SEEN /hpf (NONE SEEN) 09/03/16 17:00 Vancomycin Trough 17.3 ug/mL (10-20) 09/06/16 09:00 RPR NONREACTIVE (NONREACTIVE) 08/31/16 08:20 - Physical Exam Vitals and I&O: Vital Signs Temp 97.4 F 09/14/16 11:36 Pulse 65 09/14/16 11:36 Resp 18 09/14/16 11:36 BP 110/55 09/14/16 11:36 Pulse Ox 97 09/14/16 11:36 Intake & Output 09/13/16 09/14/16 09/14/16 18:59 06:59 18:59 Intake Total 500 100 Output Total 600 Balance 500 -500 Intake: Oral 500 100 Output: Urine 600 Other: Stool Characteristics Soft Active Medications: Current Medications Acetaminophen (Tylenol) 650 mg PO Q4HR PRN PRN Reason: Pain or Fever >101 Stop: 10/30/16 09:31 Acetylcysteine (Mucomyst 20%) 2 ml HHN Q6HRT [facility] Stop: 10/30/16 18:59 Last Admin: 09/14/16 12:01 Dose: 2 ml Albuterol Sulfate (Albuterol 2.5mg/3ml Neb Ud) 2.5 mg HHN QIDRT [facility] Stop: 10/30/16 12:59 Last Admin: 09/14/16 12:22 Dose: 2.5 mg Amiodarone HCl (Cordarone) 200 mg PO DAILY [facility] Stop: 10/31/16 08:59 Last Admin: 09/14/16 08:20 Dose: 200 mg Aspirin (Aspirin Chewable) 81 mg PO DAILY [facility] Stop: 10/31/16 08:59 Last Admin: 09/14/16 08:19 Dose: 81 mg Atorvastatin Calcium (Lipitor) 10 mg PO HS [facility] PRN Reason: Protocol Stop: 10/30/16 20:59 Last Admin: 09/13/16 21:31 Dose: 10 mg Bisacodyl (Dulcolax 10 Mg Supp) 10 mg RC Q72H PRN PRN Reason: Constipation Stop: 10/30/16 09:31 Budesonide (Pulmicort) 0.5 mg HHN Q12HRT [facility] Stop: 10/30/16 09:44 Last Admin: 09/13/16 18:46 Dose: 0.5 mg Buspirone HCl (Buspar) 10 mg PO TID [facility] Stop: 10/30/16 13:59 Last Admin: 09/14/16 08:19 Dose: 10 mg Donepezil HCl (Aricept) 10 mg PO HS [facility] Stop: 10/30/16 20:59 Last Admin: 09/13/16 21:31 Dose: 10 mg Guaifenesin (Mucinex) 600 mg PO Q12HR PRN PRN Reason: Cough or Congestion Stop: 11/04/16 23:19 Ceftriaxone Sodium 2 gm/ (Sodium Chloride) 100 mls @ 100 mls/hr IV Q24H [facility] Stop: 11/03/16 13:59 Last Admin: 09/13/16 13:00 Dose: 100 mls/hr Fluconazole (Diflucan) 200 mg in 100 mls @ 100 mls/hr IV Q24HR [facility] Stop: 11/07/16 14:14 Last Admin: 09/13/16 14:05 Dose: 100 mls/hr Ipratropium [place] (Atrovent Neb 0.5mg/2.5ml) 0.5 mg HHN Q6HRT [facility] Stop: 11/02/16 00:59 Last Admin: 09/14/16 12:23 Dose: 0.5 mg Magnesium Hydroxide (Milk Of Magnesia) 30 ml PO HS PRN PRN Reason: Constipation Stop: 10/30/16 09:31 Montelukast Sodium (Singulair) 10 mg PO HS [facility] Stop: 10/30/16 20:59 Last Admin: 09/13/16 21:31 Dose: 10 mg Olanzapine (Zyprexa) 15 mg PO DAILY [facility] PRN Reason: Protocol Stop: 10/31/16 08:59 Last Admin: 09/14/16 08:19 Dose: 15 mg Ondansetron HCl (Zofran) 4 mg IV Q8H PRN PRN Reason: Nausea / Vomiting Stop: 10/30/16 09:34 Prednisone (Deltasone) 10 mg PO BID [facility] Stop: 09/17/16 12:24 Last Admin: 09/14/16 08:19 Dose: 10 mg Sodium Phosphate (Fleet Enema) 135 ml RC PRN PRN PRN Reason: Constipation Stop: 10/30/16 09:31 Tamsulosin HCl (Flomax) 0.4 mg PO HS [facility] Stop: 10/30/16 20:59 Last Admin: 09/13/16 21:31 Dose: 0.4 mg General: weak, alert HEENT: NC/AT Lungs: ronchi Cardiovascular: RRR, Normal S1, Normal S2, without murmur Abdomen: soft non-tender, non-distended Extremities: clear - Procedures Procedures: Procedures Procedure Code Date ASSISTANCE WITH RESPIRATORY VENTILATION, <24 HRS, CPAP [id number] 06/29/16 EXCISION OF DUODENUM, ENDO, DIAGN [id number] 07/18/16 EXCISION OF ESOPHAGUS, ENDO, DIAGN [id number] 07/18/16 EXCISION OF STOMACH, ENDO, DIAGN [id number] 07/18/16 POS AIRWAY PRESSURE CPAP 15570 06/29/16 Internal Medicine Assmt/Plan - Assessment Assessment: Pneumonia Copd exacerbation Respiratory Failure htn dyslipidemia dementia - Plan Plan: bronchodilators continue ivabx supplemental o2 f/u labs in am cpm Nutritional Asmnt/Malnutr-PDOC - Dietary Evaluation Malnutrition Findings (Please click <Entered> for more info): Nutritional Asmnt/Malnutrition Start: 09/02/16 14: 33 Text: Status: Complete Freq: Document 09/02/16 14:34 GSUN (Rec: 09/02/16 14:52 GSUN [email or web address]) Nutritional Asmnt/Malnutrition Patient General Information Nutritional Screening High Risk Screening Diagnosis Pneumonia, acute respiratory failure, COPD exacerbation Pertinent Medical Hx/Surgical Hx HTN, CAD, asthma, COPD, dyslipidemia, PUD, GERD, dementia Subjective Information 75yo M from SNF. Pt was alert, appeared anxious during visit . Pt was admitted here once in past July and twice in past June. Pt was ordered pureed + nectar thick during previous two stays. Most recent swallow eval 06/26/16 ST recommended mech soft + nectar thick. Discussed with pt regarding diet texture and tolerance, pt denied difficulties chewing/ swallowing and expressed preference for current mech soft ground. Encouraged pt to inform RN if any diet texture intolerance noted, pt understood. PO intake 100% all 3 meals yesterday 09/01. Unable to lower pt's head for bedscale due to pt appeared anxious. Current Diet Order/ Nutrition Support Mech soft ground + nectar thick Pertinent Medications Dulcolax, D5, MOM, Solu-Medrol , Vancomycin, Zofran, Fleet Enema Pertinent Labs Reviewed. Glucose 105, 143, 145 Nutritional Hx/Data Height 5 ft 8 in Height (Calculated Centimeters) 172.7 Current Weight (lbs) 162 lb Weight (Calculated Kilograms) 73.5 Weight (Calculated Grams) 35414.0 Usual body Weight (lbs) 161 [place] Body Weight 154lb ([place]) Recent Weight Change No Weight Status Approriate GI Symptoms Food Allergies No Cultural/Ethnic/[employer] Belief Unknown. Usual diet at home Unknown. Skin Integrity/Comment: Ruddy 11. Skin intact. Current %PO Good (75-100%) Estimated Nutritional Goals BEE in Kcals: Using Current wt Calories/Kcals/Kg 30-35kcal/kg Kcals Calculated 2205-2573kcal Protein: Using Current wt Protein g/k.2-1.4g/kg Protein Calculated 88-103g/kg Fluid: ml 2205-2573ml (1ml/kcal) Nutritional Problem 1. Problem Problem Increased kcal and prot needs related to Etiology hypermetabolic stated aeb Signs/Symptoms: pneumonia, COPD exacerbation, acute respiratory failure Intervention/Recommendation Comments 1. Continue with mech soft ground + necatar thick diet ( refer to subjective information in nutrition assessment). Continue to monitor and supervise during meal time. Expected Outcomes/Goals Expected Outcomes/Goals 1. PO intake to meet at least 75% of estimated nutritional needs. Physician Parameters for PEM Serum Albumin (g/dl) 3.5 - 5.0 (Normal)
[2016-09-14] MEDS ORDERED: Magnesium Hydroxide (MOM) 30 mL UDC PO PRN (12:42)
--- NOTE | 2016-09-14 12:42 | Internal Medicine Prog Note ---
Internal Medicine Subjective - Subjective Service Date: 09/14/16 (on vent orally intubated, now on cpap mode, abdomen noted with distention no BM ) Patient seen and examined:: with staff Patient is:: awake Per staff patient is:: no adverse event Internal Medicine Objective - Results Result Diagrams: 09/14/16 05:32 09/13/16 06:22 Recent Labs: Laboratory Last Values WBC 13.9 Th/cmm (4.8-10.8) H 09/14/16 05:32 RBC 3.99 Mil/cmm (3.80-5.80) 09/14/16 05:32 Hgb 11.9 gm/dL (12.6-17.4) L 09/14/16 05:32 Hct 34.3 % (39.0-49.0) L 09/14/16 05:32 MCV 85.9 fl (80-99) 09/14/16 05:32 MCH 29.8 pg (27.0-31.0) 09/14/16 05:32 MCHC Differential 34.7 pg (28.0-36.0) 09/14/16 05:32 RDW 14.7 % (11.5-20.0) 09/14/16 05:32 Plt Count 180 Th/cmm (150-400) 09/14/16 05:32 MPV 8.1 fl 09/14/16 05:32 Neutrophils % 85.7 % (40.0-80.0) H 09/14/16 05:32 Band Neutrophils % 4 % (0-10) 09/12/16 05:55 Lymphocytes % 9.4 % (20.0-50.0) L 09/14/16 05:32 Monocytes % 4.1 % (2.0-10.0) 09/14/16 05:32 Eosinophils % 0.7 % (0.0-5.0) 09/14/16 05:32 Basophils % 0.1 % (0.0-2.0) 09/14/16 05:32 Neutrophils (Manual) 88 % (40-80) H 09/13/16 06:22 Lymphocytes 9 % (20-50) L 09/13/16 06:22 Monocytes 3 % (2-10) 09/13/16 06:22 Eosinophils 1 % (0-5) 09/09/16 07:39 Basophils 1 % (0-3) 09/09/16 07:39 Platelet Estimate ADEQUATE (NORMAL) 09/13/16 06:22 Platelet Morphology NORMAL (NORMAL) 09/13/16 06:22 Poikilocytosis 1+ 09/08/16 06:41 Anisocytosis 1+ 09/13/16 06:22 Ovalocytes 1+ 09/08/16 06:41 RBC Morph Micro Appear ABNORMAL (NORMAL) 09/13/16 06:22 PT 9.8 SECONDS (9.5-11.5) 08/31/16 08:20 INR 0.99 (0.5-1.4) 08/31/16 08:20 Specimen Source Arterial 08/31/16 07:36 Sample Site Right Radial 08/31/16 07:36 pH 7.42 (7.35-7.45) 08/31/16 07:36 pCO2 42.0 mmHg (35.0-45.0) 08/31/16 07:36 pO2 53.0 mmHg (80.0-100.0) L 08/31/16 07:36 HCO3 27.2 mmol/L (20.0-26.0) H 08/31/16 07:36 Base Excess 2.4 mmol/L (-3.0-3.0) 08/31/16 07:36 O2 Saturation 88.0 % (92.0-100.0) L 08/31/16 07:36 Praveen Test YES 08/31/16 07:36 Vent Rate NA 08/31/16 07:36 Inspired O2 21 08/31/16 07:36 Tidal Volume NA 08/31/16 07:36 PEEP NA 08/31/16 07:36 Pressure (ins/psv/peep) NA 08/31/16 07:36 Critical Value SH 08/31/16 07:36 Sodium 142 mEq/L (136-145) 09/13/16 06:22 Potassium 4.2 mEq/L (3.5-5.1) 09/13/16 06:22 Chloride 110 mEq/L (98-107) H 09/13/16 06:22 Carbon Dioxide 29.4 mEq/L (21.0-31.0) 09/13/16 06:22 Anion Gap 6.8 (7.0-16.0) L 09/13/16 06:22 BUN 24 mg/dL (7-25) 09/13/16 06:22 Creatinine 0.5 mg/dL (0.7-1.3) L 09/13/16 06:22 Est GFR ( Amer) TNP 09/13/16 06:22 Est GFR (Non-Af Amer) TNP 09/13/16 06:22 BUN/Creatinine Ratio 48.0 09/13/16 06:22 Glucose 86 mg/dL (70-105) 09/13/16 06:22 POC Glucose 164 MG/DL (70-105) H 09/08/16 00:19 Hemoglobin A1c % 5.8 % (4.0-6.0) 09/03/16 09:20 Whole Bld Lactic Acid 1.32 mmol/L (0.60-1.99) 08/31/16 08:20 Calcium 8.4 mg/dL (8.6-10.3) L 09/13/16 06:22 Magnesium 2.2 mg/dL (1.9-2.7) 09/06/16 05:55 Total Bilirubin 0.3 mg/dL (0.3-1.0) 09/06/16 05:55 AST 12 U/L (13-39) L 09/06/16 05:55 ALT 53 U/L (7-52) H 09/06/16 05:55 Alkaline Phosphatase 60 U/L (34-104) 09/06/16 05:55 Troponin I 0.02 ng/mL (0.01-0.05) 08/31/16 08:20 B-Natriuretic Peptide 129.0 pg/mL (5.0-100.0) H 09/06/16 05:55 Total Protein 5.4 gm/dL (6.0-8.3) L 09/06/16 05:55 Albumin 2.7 gm/dL (4.2-5.5) L 09/06/16 05:55 Globulin 2.7 gm/dL 09/06/16 05:55 Albumin/Globulin Ratio 1.0 (1.0-1.8) 09/06/16 05:55 TSH 0.39 uIU/ml (0.34-5.60) 08/31/16 08:20 Urine Source CLEAN C 09/03/16 17:00 Urine Color YELLOW 09/03/16 17:00 Urine Clarity CLEAR (CLEAR) 09/03/16 17:00 Urine pH 6.5 09/03/16 17:00 Ur Specific [place] 1.015 (1.005-1.030) 09/03/16 17:00 Urine Protein NEGATIVE mg/dL (NEGATIVE) 09/03/16 17:00 Urine Glucose (UA) NEGATIVE mg/dL (NEGATIVE) 09/03/16 17:00 Urine Ketones NEGATIVE mg/dL (NEGATIVE) 09/03/16 17:00 Urine Blood NEGATIVE (NEGATIVE) 09/03/16 17:00 Urine Nitrate NEGATIVE (NEGATIVE) 09/03/16 17:00 Urine Bilirubin NEGATIVE (NEGATIVE) 09/03/16 17:00 Urine Urobilinogen 0.2 E.U./dL (0.2 - 1.0) 09/03/16 17:00 Ur Leukocyte Esterase NEGATIVE (NEGATIVE) 09/03/16 17:00 Urine RBC NONE SEEN /hpf (0-5) 09/03/16 17:00 Urine WBC NONE SEEN /hpf (0-5) 09/03/16 17:00 Ur Epithelial Cells NONE SEEN /lpf (FEW) 09/03/16 17:00 Urine Bacteria NONE SEEN /hpf (NONE SEEN) 09/03/16 17:00 Vancomycin Trough 17.3 ug/mL (10-20) 09/06/16 09:00 RPR NONREACTIVE (NONREACTIVE) 08/31/16 08:20 - Physical Exam Vitals and I&O: Vital Signs Temp 97.4 F 09/14/16 11:36 Pulse 65 09/14/16 11:36 Resp 18 09/14/16 11:36 BP 110/55 09/14/16 11:36 Pulse Ox 97 09/14/16 11:36 Intake & Output 09/13/16 09/14/16 09/14/16 18:59 06:59 18:59 Intake Total 500 100 Output Total 600 Balance 500 -500 Intake: Oral 500 100 Output: Urine 600 Other: Stool Characteristics Soft Active Medications: Current Medications Acetaminophen (Tylenol) 650 mg PO Q4HR PRN PRN Reason: Pain or Fever >101 Stop: 10/30/16 09:31 Acetylcysteine (Mucomyst 20%) 2 ml HHN Q6HRT [facility] Stop: 10/30/16 18:59 Last Admin: 09/14/16 12:37 Dose: 2 ml Albuterol Sulfate (Albuterol 2.5mg/3ml Neb Ud) 2.5 mg HHN QIDRT COUNTS INCLUDE 234 BEDS AT THE [facility] Stop: 10/30/16 12:59 Last Admin: 09/14/16 12:22 Dose: 2.5 mg Amiodarone HCl (Cordarone) 200 mg PO DAILY COUNTS INCLUDE 234 BEDS AT THE [facility] Stop: 10/31/16 08:59 Last Admin: 09/14/16 08:20 Dose: 200 mg Aspirin (Aspirin Chewable) 81 mg PO DAILY COUNTS INCLUDE 234 BEDS AT THE [facility] Stop: 10/31/16 08:59 Last Admin: 09/14/16 08:19 Dose: 81 mg Atorvastatin Calcium (Lipitor) 10 mg PO HS [facility] PRN Reason: Protocol Stop: 10/30/16 20:59 Last Admin: 09/13/16 21:31 Dose: 10 mg Bisacodyl (Dulcolax 10 Mg Supp) 10 mg RC Q72H PRN PRN Reason: Constipation Stop: 10/30/16 09:31 Budesonide (Pulmicort) 0.5 mg N Q12HRT COUNTS INCLUDE 234 BEDS AT THE [facility] Stop: 10/30/16 09:44 Last Admin: 09/13/16 18:46 Dose: 0.5 mg Buspirone HCl (Buspar) 10 mg PO TID COUNTS INCLUDE 234 BEDS AT THE [facility] Stop: 10/30/16 13:59 Last Admin: 09/14/16 08:19 Dose: 10 mg Donepezil HCl (Aricept) 10 mg PO HS COUNTS INCLUDE 234 BEDS AT THE [facility] Stop: 10/30/16 20:59 Last Admin: 09/13/16 21:31 Dose: 10 mg Guaifenesin (Mucinex) 600 mg PO Q12HR PRN PRN Reason: Cough or Congestion Stop: 11/04/16 23:19 Ceftriaxone Sodium 2 gm/ (Sodium Chloride) 100 mls @ 100 mls/hr IV Q24H COUNTS INCLUDE 234 BEDS AT THE [facility] Stop: 11/03/16 13:59 Last Admin: 09/13/16 13:00 Dose: 100 mls/hr Fluconazole (Diflucan) 200 mg in 100 mls @ 100 mls/hr IV Q24HR COUNTS INCLUDE 234 BEDS AT THE [facility] Stop: 11/07/16 14:14 Last Admin: 09/13/16 14:05 Dose: 100 mls/hr Ipratropium [place] (Atrovent Neb 0.5mg/2.5ml) 0.5 mg HHN Q6HRT COUNTS INCLUDE 234 BEDS AT THE [facility] Stop: 11/02/16 00:59 Last Admin: 09/14/16 12:23 Dose: 0.5 mg Magnesium Hydroxide (Milk Of Magnesia) 30 ml PO HS PRN PRN Reason: Constipation Stop: 10/30/16 09:31 Montelukast Sodium (Singulair) 10 mg PO HS COUNTS INCLUDE 234 BEDS AT THE [facility] Stop: 10/30/16 20:59 Last Admin: 09/13/16 21:31 Dose: 10 mg Olanzapine (Zyprexa) 15 mg PO DAILY [facility] PRN Reason: Protocol Stop: 10/31/16 08:59 Last Admin: 09/14/16 08:19 Dose: 15 mg Ondansetron HCl (Zofran) 4 mg IV Q8H PRN PRN Reason: Nausea / Vomiting Stop: 10/30/16 09:34 Prednisone (Deltasone) 10 mg PO BID COUNTS INCLUDE 234 BEDS AT THE [facility] Stop: 09/17/16 12:24 Last Admin: 09/14/16 08:19 Dose: 10 mg Sodium Phosphate (Fleet Enema) 135 ml RC PRN PRN PRN Reason: Constipation Stop: 10/30/16 09:31 Tamsulosin HCl (Flomax) 0.4 mg PO HS COUNTS INCLUDE 234 BEDS AT THE [facility] Stop: 10/30/16 20:59 Last Admin: 09/13/16 21:31 Dose: 0.4 mg General: alert HEENT: NC/AT, PERRLA Neck: Supple Lungs: CTAB Cardiovascular: RRR, Normal S1, Normal S2, without murmur Abdomen: distended Extremities: clear - Procedures Procedures: Procedures Procedure Code Date ASSISTANCE WITH RESPIRATORY VENTILATION, <24 HRS, CPAP 0O55704 06/29/16 EXCISION OF DUODENUM, ENDO, DIAGN [id number] 07/18/16 EXCISION OF ESOPHAGUS, ENDO, DIAGN [id number] 07/18/16 EXCISION OF STOMACH, ENDO, DIAGN [id number] 07/18/16 POS AIRWAY PRESSURE CPAP 88124 06/29/16 Internal Medicine Assmt/Plan - Assessment Assessment: Pneumonia Copd exacerbation Respiratory Failure htn dyslipidemia dementia - Plan Plan: will add prn mom bronchodilators continue ivabx supplemental o2 f/u labs in am cpm Nutritional Asmnt/Malnutr-PDOC - Dietary Evaluation Malnutrition Findings (Please click <Entered> for more info): Nutritional Asmnt/Malnutrition Start: 09/02/16 14: 33 Text: Status: Complete Freq: Document 09/02/16 14:34 GSUN (Rec: 09/02/16 14:52 [email or web address]) Nutritional Asmnt/Malnutrition Patient General Information Nutritional Screening High Risk Screening Diagnosis Pneumonia, acute respiratory failure, COPD exacerbation Pertinent Medical Hx/Surgical Hx HTN, CAD, asthma, COPD, dyslipidemia, PUD, GERD, dementia Subjective Information 75yo M from SNF. Pt was alert, appeared anxious during visit . Pt was admitted here once in past July and twice in past June. Pt was ordered pureed + nectar thick during previous two stays. Most recent swallow eval 06/26/16 ST recommended mech soft + nectar thick. Discussed with pt regarding diet texture and tolerance, pt denied difficulties chewing/ swallowing and expressed preference for current mech soft ground. Encouraged pt to inform RN if any diet texture intolerance noted, pt understood. PO intake 100% all 3 meals yesterday 09/01. Unable to lower pt's head for bedscale due to pt appeared anxious. Current Diet Order/ Nutrition Support Mech soft ground + nectar thick Pertinent Medications Dulcolax, D5, MOM, Solu-Medrol , Vancomycin, Zofran, Fleet Enema Pertinent Labs Reviewed. Glucose 105, 143, 145 Nutritional Hx/Data Height 5 ft 8 in Height (Calculated Centimeters) 172.7 Current Weight (lbs) 162 lb Weight (Calculated Kilograms) 73.5 Weight (Calculated Grams) 20776.0 Usual body Weight (lbs) 161 [place] Body Weight 154lb ([place]) Recent Weight Change No Weight Status Approriate GI Symptoms Food Allergies No Cultural/Ethnic/Jew Belief Unknown. Usual diet at home Unknown. Skin Integrity/Comment: Ruddy 11. Skin intact. Current %PO Good (75-100%) Estimated Nutritional Goals BEE in Kcals: Using Current wt Calories/Kcals/Kg 30-35kcal/kg Kcals Calculated 2205-2573kcal Protein: Using Current wt Protein g/k.2-1.4g/kg Protein Calculated 88-103g/kg Fluid: ml 2205-2573ml (1ml/kcal) Nutritional Problem 1. Problem Problem Increased kcal and prot needs related to Etiology hypermetabolic stated aeb Signs/Symptoms: pneumonia, COPD exacerbation, acute respiratory failure Intervention/Recommendation Comments 1. Continue with [facility] soft ground + necatar thick diet ( refer to subjective information in nutrition assessment). Continue to monitor and supervise during meal time. Expected Outcomes/Goals Expected Outcomes/Goals 1. PO intake to meet at least 75% of estimated nutritional needs. Physician Parameters for PEM Serum Albumin (g/dl) 3.5 - 5.0 (Normal)
[2016-09-14] MEDS: cefTRIAXone 2 GM in Sodium Chloride 0.9% 100 ML IV SCH (13:56)
[2016-09-14] MEDS: Fluconazole 200mg/100mL 200 MG/100 ML BAG IV SCH (15:30)
[2016-09-14] MEDS: Budesonide 0.5 Mg/2 mL Ud HHN SCH (19:23)
[2016-09-14] MEDS: Atorvastatin Calcium 10 MG TAB PO SCH (21:03)
[2016-09-15] MEDS: Ipratropium Neb 0.5 mg/2.5 mL UD HHN SCH ×4 (00:37→18:55)
[2016-09-15 06:25] LABS: HEMATOCRIT 34.8 % (39.0-49.0); MEAN CELL VOLUME 87.1 fl (80-99); MEAN CORPUSCULAR HGB CONC 34.5 pg (28.0-36.0); MEAN PLATELET VOLUME 7.9 fl; PLATELET COUNT 167 Th/cmm (150-400); RED CELL DISTRIBUTION WIDTH 15.1 % (11.5-20.0); WHITE BLOOD COUNT 11.6 Th/cmm (4.8-10.8)
[2016-09-15] MEDS: Budesonide 0.5 Mg/2 mL Ud HHN SCH ×2 (07:49→18:55)
[2016-09-15] MEDS: Albuterol Nebulizer 2.5mg/3mL HHN SCH ×4 (07:49→18:55)
[2016-09-15 08:14] LABS: ANION GAP 9.1 (7.0-16.0); BUN - UREA NITROGEN 23 mg/dL (7-25); CALCIUM SERUM 8.7 mg/dL (8.6-10.3); CARBON DIOXIDE 27.4 mEq/L (21.0-31.0); CHLORIDE 109 mEq/L (98-107); CREATININE - SERUM 0.5 mg/dL (0.7-1.3); GLUCOSE 101 mg/dL (70-105); POTASSIUM SERUM 4.5 mEq/L (3.5-5.1); SODIUM SERUM 141 mEq/L (136-145)
[2016-09-15] MEDS: Aspirin 81mg Chewable Tab PO SCH (08:33)
[2016-09-15 08:53] LABS: BAND NEUTROPHILE 1 % (0-10); NEUTROPHILS 86 % (40-80); PLATELET ESTIMATE ADEQUATE (NORMAL); PLATELET MORPHOLOGY NORMAL (NORMAL); TOTAL CELLS COUNTED 100
[2016-09-15] MEDS: Fluconazole 200mg/100mL 200 MG/100 ML BAG IV SCH (14:08)
[2016-09-15] MEDS: cefTRIAXone 2 GM in Sodium Chloride 0.9% 100 ML IV SCH (14:12)
--- NOTE | 2016-09-15 16:00 | Internal Medicine Prog Note ---
Internal Medicine Subjective - Subjective Service Date: 09/15/16 Patient seen and examined:: with staff Patient is:: awake Per staff patient is:: no adverse event Internal Medicine Objective - Results Result Diagrams: 09/15/16 05:40 09/15/16 05:40 Recent Labs: Laboratory Last Values WBC 11.6 Th/cmm (4.8-10.8) H 09/15/16 05:40 RBC 4.00 Mil/cmm (3.80-5.80) 09/15/16 05:40 Hgb 12.0 gm/dL (12.6-17.4) L 09/15/16 05:40 Hct 34.8 % (39.0-49.0) L 09/15/16 05:40 MCV 87.1 fl (80-99) 09/15/16 05:40 MCH 30.0 pg (27.0-31.0) 09/15/16 05:40 MCHC Differential 34.5 pg (28.0-36.0) 09/15/16 05:40 RDW 15.1 % (11.5-20.0) 09/15/16 05:40 Plt Count 167 Th/cmm (150-400) 09/15/16 05:40 MPV 7.9 fl 09/15/16 05:40 Neutrophils % 85.7 % (40.0-80.0) H 09/14/16 05:32 Band Neutrophils % 1 % (0-10) 09/15/16 05:40 Lymphocytes % 9.4 % (20.0-50.0) L 09/14/16 05:32 Monocytes % 4.1 % (2.0-10.0) 09/14/16 05:32 Eosinophils % 0.7 % (0.0-5.0) 09/14/16 05:32 Basophils % 0.1 % (0.0-2.0) 09/14/16 05:32 Neutrophils (Manual) 86 % (40-80) H 09/15/16 05:40 Lymphocytes 9 % (20-50) L 09/15/16 05:40 Monocytes 4 % (2-10) 09/15/16 05:40 Eosinophils 1 % (0-5) 09/09/16 07:39 Basophils 1 % (0-3) 09/09/16 07:39 Platelet Estimate ADEQUATE (NORMAL) 09/15/16 05:40 Platelet Morphology NORMAL (NORMAL) 09/15/16 05:40 Poikilocytosis 1+ 09/08/16 06:41 Anisocytosis 1+ 09/13/16 06:22 Ovalocytes 1+ 09/08/16 06:41 RBC Morph Micro Appear NORMAL (NORMAL) 09/15/16 05:40 PT 9.8 SECONDS (9.5-11.5) 08/31/16 08:20 INR 0.99 (0.5-1.4) 08/31/16 08:20 Specimen Source Arterial 08/31/16 07:36 Sample Site Right Radial 08/31/16 07:36 pH 7.42 (7.35-7.45) 08/31/16 07:36 pCO2 42.0 mmHg (35.0-45.0) 08/31/16 07:36 pO2 53.0 mmHg (80.0-100.0) L 08/31/16 07:36 HCO3 27.2 mmol/L (20.0-26.0) H 08/31/16 07:36 Base Excess 2.4 mmol/L (-3.0-3.0) 08/31/16 07:36 O2 Saturation 88.0 % (92.0-100.0) L 08/31/16 07:36 Praveen Test YES 08/31/16 07:36 Vent Rate NA 08/31/16 07:36 Inspired O2 21 08/31/16 07:36 Tidal Volume NA 08/31/16 07:36 PEEP NA 08/31/16 07:36 Pressure (ins/psv/peep) NA 08/31/16 07:36 Critical Value SH 08/31/16 07:36 Sodium 141 mEq/L (136-145) 09/15/16 05:40 Potassium 4.5 mEq/L (3.5-5.1) 09/15/16 05:40 Chloride 109 mEq/L (98-107) H 09/15/16 05:40 Carbon Dioxide 27.4 mEq/L (21.0-31.0) 09/15/16 05:40 Anion Gap 9.1 (7.0-16.0) 09/15/16 05:40 BUN 23 mg/dL (7-25) 09/15/16 05:40 Creatinine 0.5 mg/dL (0.7-1.3) L 09/15/16 05:40 Est GFR ( Amer) TNP 09/15/16 05:40 Est GFR (Non-Af Amer) TNP 09/15/16 05:40 BUN/Creatinine Ratio 46.0 09/15/16 05:40 Glucose 101 mg/dL (70-105) 09/15/16 05:40 POC Glucose 164 MG/DL (70-105) H 09/08/16 00:19 Hemoglobin A1c % 5.8 % (4.0-6.0) 09/03/16 09:20 Whole Bld Lactic Acid 1.32 mmol/L (0.60-1.99) 08/31/16 08:20 Calcium 8.7 mg/dL (8.6-10.3) 09/15/16 05:40 Magnesium 2.2 mg/dL (1.9-2.7) 09/06/16 05:55 Total Bilirubin 0.3 mg/dL (0.3-1.0) 09/06/16 05:55 AST 12 U/L (13-39) L 09/06/16 05:55 ALT 53 U/L (7-52) H 09/06/16 05:55 Alkaline Phosphatase 60 U/L (34-104) 09/06/16 05:55 Troponin I 0.02 ng/mL (0.01-0.05) 08/31/16 08:20 B-Natriuretic Peptide 129.0 pg/mL (5.0-100.0) H 09/06/16 05:55 Total Protein 5.4 gm/dL (6.0-8.3) L 09/06/16 05:55 Albumin 2.7 gm/dL (4.2-5.5) L 09/06/16 05:55 Globulin 2.7 gm/dL 09/06/16 05:55 Albumin/Globulin Ratio 1.0 (1.0-1.8) 09/06/16 05:55 TSH 0.39 uIU/ml (0.34-5.60) 08/31/16 08:20 Urine Source CLEAN C 09/03/16 17:00 Urine Color YELLOW 09/03/16 17:00 Urine Clarity CLEAR (CLEAR) 09/03/16 17:00 Urine pH 6.5 09/03/16 17:00 Ur Specific [place] 1.015 (1.005-1.030) 09/03/16 17:00 Urine Protein NEGATIVE mg/dL (NEGATIVE) 09/03/16 17:00 Urine Glucose (UA) NEGATIVE mg/dL (NEGATIVE) 09/03/16 17:00 Urine Ketones NEGATIVE mg/dL (NEGATIVE) 09/03/16 17:00 Urine Blood NEGATIVE (NEGATIVE) 09/03/16 17:00 Urine Nitrate NEGATIVE (NEGATIVE) 09/03/16 17:00 Urine Bilirubin NEGATIVE (NEGATIVE) 09/03/16 17:00 Urine Urobilinogen 0.2 E.U./dL (0.2 - 1.0) 09/03/16 17:00 Ur Leukocyte Esterase NEGATIVE (NEGATIVE) 09/03/16 17:00 Urine RBC NONE SEEN /hpf (0-5) 09/03/16 17:00 Urine WBC NONE SEEN /hpf (0-5) 09/03/16 17:00 Ur Epithelial Cells NONE SEEN /lpf (FEW) 09/03/16 17:00 Urine Bacteria NONE SEEN /hpf (NONE SEEN) 09/03/16 17:00 Vancomycin Trough 17.3 ug/mL (10-20) 09/06/16 09:00 RPR NONREACTIVE (NONREACTIVE) 08/31/16 08:20 - Physical Exam Vitals and I&O: Vital Signs Temp 97.4 F 09/15/16 08:00 Pulse 66 09/15/16 15:30 Resp 18 09/15/16 15:30 BP 136/69 09/15/16 08:00 Pulse Ox 97 09/15/16 15:30 Intake & Output 09/14/16 09/15/16 09/15/16 17:59 06:59 18:59 Intake Total Output Total Balance Intake: Intake, IV Amount Fluconazole 200mg/100mL 200 mg In 100 ml @ 100 mls/hr IV Q24HR [facility] Rx#: [id number] 2 gm In Sodium Chloride 0.9% 100 ml @ 100 mls/hr IV Q24H [facility] Rx#:[id number] Oral Output: Urine Active Medications: Current Medications Acetaminophen (Tylenol) 650 mg PO Q4HR PRN PRN Reason: Pain or Fever >101 Stop: 10/30/16 09:31 Acetylcysteine (Mucomyst 20%) 2 ml HHN Q6HRT [facility] Stop: 10/30/16 18:59 Last Admin: 09/15/16 12:19 Dose: 2 ml Albuterol Sulfate (Albuterol 2.5mg/3ml Neb Ud) 2.5 mg HHN QIDRT [facility] [place] Stop: 10/30/16 12:59 Last Admin: 09/15/16 15:28 Dose: 2.5 mg Amiodarone HCl (Cordarone) 200 mg PO DAILY [facility] Stop: 10/31/16 08:59 Last Admin: 09/15/16 08:33 Dose: 200 mg Aspirin (Aspirin Chewable) 81 mg PO DAILY [facility] Stop: 10/31/16 08:59 Last Admin: 09/15/16 08:33 Dose: 81 mg Atorvastatin Calcium (Lipitor) 10 mg PO HS [facility] PRN Reason: Protocol Stop: 10/30/16 20:59 Last Admin: 09/14/16 21:03 Dose: 10 mg Bisacodyl (Dulcolax 10 Mg Supp) 10 mg RC Q72H PRN PRN Reason: Constipation Stop: 10/30/16 09:31 Budesonide (Pulmicort) 0.5 mg N Q12HRT [facility] Stop: 10/30/16 09:44 Last Admin: 09/15/16 07:49 Dose: 0.5 mg Buspirone HCl (Buspar) 10 mg PO TID [facility] [place] Stop: 10/30/16 13:59 Last Admin: 09/15/16 14:08 Dose: 10 mg Donepezil HCl (Aricept) 10 mg PO [facility] Stop: 10/30/16 20:59 Last Admin: 09/14/16 21:04 Dose: 10 mg Guaifenesin (Mucinex) 600 mg PO Q12HR PRN PRN Reason: Cough or Congestion Stop: 11/04/16 23:19 Ceftriaxone Sodium 2 gm/ (Sodium Chloride) 100 mls @ 100 mls/hr IV Q24H [facility] [place] Stop: 11/03/16 13:59 Last Admin: 09/15/16 14:12 Dose: 100 mls/hr Fluconazole (Diflucan) 200 mg in 100 mls @ 100 mls/hr IV Q24HR [facility] Stop: 11/07/16 14:14 Last Admin: 09/15/16 14:08 Dose: 100 mls/hr Ipratropium [place] (Atrovent Neb 0.5mg/2.5ml) 0.5 mg HHN Q6HRT [facility] Stop: 11/02/16 00:59 Last Admin: 09/15/16 12:19 Dose: 0.5 mg Magnesium Hydroxide (Milk Of Magnesia) 30 ml PO HS PRN PRN Reason: Constipation Stop: 10/30/16 09:31 Magnesium Hydroxide (Milk Of Magnesia) 30 ml PO DAILY PRN PRN Reason: Constipation Stop: 11/13/16 12:41 Montelukast Sodium (Singulair) 10 mg PO HS [facility] Stop: 10/30/16 20:59 Last Admin: 09/14/16 21:04 Dose: 10 mg Olanzapine (Zyprexa) 15 mg PO DAILY [facility] PRN Reason: Protocol Stop: 10/31/16 08:59 Last Admin: 09/15/16 08:33 Dose: 15 mg Ondansetron HCl (Zofran) 4 mg IV Q8H PRN PRN Reason: Nausea / Vomiting Stop: 10/30/16 09:34 Prednisone (Deltasone) 10 mg PO BID [facility] Stop: 09/17/16 12:24 Last Admin: 09/15/16 08:33 Dose: 10 mg Sodium Phosphate (Fleet Enema) 135 ml RC PRN PRN PRN Reason: Constipation Stop: 10/30/16 09:31 Tamsulosin HCl (Flomax) 0.4 mg PO HS [facility] Stop: 10/30/16 20:59 Last Admin: 09/14/16 21:03 Dose: 0.4 mg General: alert HEENT: NC/AT, PERRLA Neck: Supple Lungs: CTAB Cardiovascular: RRR, Normal S1, Normal S2, without murmur Abdomen: soft non-tender, non-distended, positive bowel sound Neurological: no change - Procedures Procedures: Procedures Procedure Code Date ASSISTANCE WITH RESPIRATORY VENTILATION, <24 HRS, CPAP [id number] 06/29/16 EXCISION OF DUODENUM, ENDO, DIAGN [id number] 07/18/16 EXCISION OF ESOPHAGUS, ENDO, DIAGN [id number] 07/18/16 EXCISION OF STOMACH, ENDO, DIAGN [id number] 07/18/16 POS AIRWAY PRESSURE CPAP [id number] 06/29/16 Internal Medicine Assmt/Plan - Assessment Assessment: Pneumonia Copd exacerbation Respiratory Failure htn dyslipidemia dementia - Plan Plan: bronchodilators continue ivabx supplemental o2 f/u labs in am cpm Nutritional Asmnt/Malnutr-PDOC - Dietary Evaluation Malnutrition Findings (Please click <Entered> for more info): Nutritional Asmnt/Malnutrition Start: 09/02/16 14: 33 Text: Status: Complete Freq: Document 09/02/16 14:34 GSUN (Rec: 09/02/16 14:52 GSUN [email or web address]) Nutritional Asmnt/Malnutrition Patient General Information Nutritional Screening High Risk Screening Diagnosis Pneumonia, acute respiratory failure, COPD exacerbation Pertinent Medical Hx/Surgical Hx HTN, CAD, asthma, COPD, dyslipidemia, PUD, GERD, dementia Subjective Information 75yo M from SNF. Pt was alert, appeared anxious during visit . Pt was admitted here once in past July and twice in past June. Pt was ordered pureed + nectar thick during previous two stays. Most recent swallow eval 06/26/16 ST recommended mech soft + nectar thick. Discussed with pt regarding diet texture and tolerance, pt denied difficulties chewing/ swallowing and expressed preference for current mech soft ground. Encouraged pt to inform RN if any diet texture intolerance noted, pt understood. PO intake 100% all 3 meals yesterday 09/01. Unable to lower pt's head for bedscale due to pt appeared anxious. Current Diet Order/ Nutrition Support Mech soft ground + nectar thick Pertinent Medications Dulcolax, D5, MOM, Solu-Medrol , Vancomycin, Zofran, Fleet Enema Pertinent Labs Reviewed. Glucose 105, 143, 145 Nutritional Hx/Data Height 5 ft 8 in Height (Calculated Centimeters) 172.7 Current Weight (lbs) 162 lb Weight (Calculated Kilograms) 73.5 Weight (Calculated Grams) 71821.0 Usual body Weight (lbs) 161 [place] Body Weight 154lb ([place]) Recent Weight Change No Weight Status Approriate GI Symptoms Food Allergies No Cultural/Ethnic/Moravian Belief Unknown. Usual diet at home Unknown. Skin Integrity/Comment: Ruddy 11. Skin intact. Current %PO Good (75-100%) Estimated Nutritional Goals BEE in Kcals: Using Current wt Calories/Kcals/Kg 30-35kcal/kg Kcals Calculated 2205-2573kcal Protein: Using Current wt Protein g/k.2-1.4g/kg Protein Calculated 88-103g/kg Fluid: ml 2205-2573ml (1ml/kcal) Nutritional Problem 1. Problem Problem Increased kcal and prot needs related to Etiology hypermetabolic stated aeb Signs/Symptoms: pneumonia, COPD exacerbation, acute respiratory failure Intervention/Recommendation Comments 1. Continue with [facility] soft ground + necatar thick diet ( refer to subjective information in nutrition assessment). Continue to monitor and supervise during meal time. Expected Outcomes/Goals Expected Outcomes/Goals 1. PO intake to meet at least 75% of estimated nutritional needs. Physician Parameters for PEM Serum Albumin (g/dl) 3.5 - 5.0 (Normal)
[2016-09-15] MEDS: Atorvastatin Calcium 10 MG TAB PO SCH (20:58)
[2016-09-16] MEDS: Ipratropium Neb 0.5 mg/2.5 mL UD HHN SCH ×4 (00:37→19:13)
[2016-09-16 06:00] LABS: % BASOPHILS 0.1 % (0.0-2.0); % EOSINOPHILS 0.4 % (0.0-5.0); % LYMPHOCYTES 10.3 % (20.0-50.0); % MONOCYTES 4.6 % (2.0-10.0); % NEUTROPHILS 84.6 % (40.0-80.0); HEMATOCRIT 34.8 % (39.0-49.0); HEMOGLOBIN 11.9 gm/dL (12.6-17.4); MEAN CELL VOLUME 86.3 fl (80-99); MEAN CORPUSCULAR HEMOGLOBIN 29.6 pg (27.0-31.0); MEAN CORPUSCULAR HGB CONC 34.2 pg (28.0-36.0); MEAN PLATELET VOLUME 8.1 fl; NEUTROPHILE ABSOLUTE 10.7 Th/cmm (1.8-8.0); PLATELET COUNT 157 Th/cmm (150-400); RED BLOOD COUNT 4.03 Mil/cmm (3.80-5.80)
[2016-09-16 06:05] LABS: WHITE BLOOD COUNT 12.7 Th/cmm (4.8-10.8)
[2016-09-16 06:14] LABS: ANION GAP 7.7 (7.0-16.0); BUN - UREA NITROGEN 21 mg/dL (7-25); CALCIUM SERUM 8.6 mg/dL (8.6-10.3); CARBON DIOXIDE 28.5 mEq/L (21.0-31.0); CHLORIDE 108 mEq/L (98-107); CREATININE - SERUM 0.5 mg/dL (0.7-1.3); GLUCOSE 99 mg/dL (70-105); POTASSIUM SERUM 4.2 mEq/L (3.5-5.1); SODIUM SERUM 140 mEq/L (136-145)
[2016-09-16] MEDS: Albuterol Nebulizer 2.5mg/3mL HHN SCH ×4 (07:00→19:13)
[2016-09-16] MEDS: Budesonide 0.5 Mg/2 mL Ud HHN SCH ×2 (07:02→19:13)
[2016-09-16] MEDS: Aspirin 81mg Chewable Tab PO SCH (09:10)
--- NOTE | 2016-09-16 09:51 | Diagnostic Imaging Report ---
CHEST X-RAY: AP view INDICATION: Pneumonia COMPARISON: 09/12/2016 FINDINGS: There is evidence of prior median sternotomy. There is elevation of the left hemidiaphragm with left effusion and possible left lung pneumonia. Cardiomegaly is noted. IMPRESSION: Persistent elevation of the left hemidiaphragm with left effusion. Pneumonia of the left lung base cannot be excluded.
--- NOTE | 2016-09-16 12:07 | Internal Medicine Prog Note ---
Internal Medicine Subjective - Subjective Service Date: 09/16/16 Patient seen and examined:: with staff Patient is:: awake Per staff patient is:: no adverse event Internal Medicine Objective - Results Result Diagrams: 09/16/16 05:30 09/16/16 05:30 Recent Labs: Laboratory Last Values WBC 12.7 Th/cmm (4.8-10.8) H 09/16/16 05:30 RBC 4.03 Mil/cmm (3.80-5.80) 09/16/16 05:30 Hgb 11.9 gm/dL (12.6-17.4) L 09/16/16 05:30 Hct 34.8 % (39.0-49.0) L 09/16/16 05:30 MCV 86.3 fl (80-99) 09/16/16 05:30 MCH 29.6 pg (27.0-31.0) 09/16/16 05:30 MCHC Differential 34.2 pg (28.0-36.0) 09/16/16 05:30 RDW 15.0 % (11.5-20.0) 09/16/16 05:30 Plt Count 157 Th/cmm (150-400) 09/16/16 05:30 MPV 8.1 fl 09/16/16 05:30 Neutrophils % 84.6 % (40.0-80.0) H 09/16/16 05:30 Band Neutrophils % 1 % (0-10) 09/15/16 05:40 Lymphocytes % 10.3 % (20.0-50.0) L 09/16/16 05:30 Monocytes % 4.6 % (2.0-10.0) 09/16/16 05:30 Eosinophils % 0.4 % (0.0-5.0) 09/16/16 05:30 Basophils % 0.1 % (0.0-2.0) 09/16/16 05:30 Neutrophils (Manual) 86 % (40-80) H 09/15/16 05:40 Lymphocytes 9 % (20-50) L 09/15/16 05:40 Monocytes 4 % (2-10) 09/15/16 05:40 Eosinophils 1 % (0-5) 09/09/16 07:39 Basophils 1 % (0-3) 09/09/16 07:39 Platelet Estimate ADEQUATE (NORMAL) 09/15/16 05:40 Platelet Morphology NORMAL (NORMAL) 09/15/16 05:40 Poikilocytosis 1+ 09/08/16 06:41 Anisocytosis 1+ 09/13/16 06:22 Ovalocytes 1+ 09/08/16 06:41 RBC Morph Micro Appear NORMAL (NORMAL) 09/15/16 05:40 PT 9.8 SECONDS (9.5-11.5) 08/31/16 08:20 INR 0.99 (0.5-1.4) 08/31/16 08:20 Specimen Source Arterial 08/31/16 07:36 Sample Site Right Radial 08/31/16 07:36 pH 7.42 (7.35-7.45) 08/31/16 07:36 pCO2 42.0 mmHg (35.0-45.0) 08/31/16 07:36 pO2 53.0 mmHg (80.0-100.0) L 08/31/16 07:36 HCO3 27.2 mmol/L (20.0-26.0) H 08/31/16 07:36 Base Excess 2.4 mmol/L (-3.0-3.0) 08/31/16 07:36 O2 Saturation 88.0 % (92.0-100.0) L 08/31/16 07:36 Praveen Test YES 08/31/16 07:36 Vent Rate NA 08/31/16 07:36 Inspired O2 21 08/31/16 07:36 Tidal Volume NA 08/31/16 07:36 PEEP NA 08/31/16 07:36 Pressure (ins/psv/peep) NA 08/31/16 07:36 Critical Value SH 08/31/16 07:36 Sodium 140 mEq/L (136-145) 09/16/16 05:30 Potassium 4.2 mEq/L (3.5-5.1) 09/16/16 05:30 Chloride 108 mEq/L (98-107) H 09/16/16 05:30 Carbon Dioxide 28.5 mEq/L (21.0-31.0) 09/16/16 05:30 Anion Gap 7.7 (7.0-16.0) 09/16/16 05:30 BUN 21 mg/dL (7-25) 09/16/16 05:30 Creatinine 0.5 mg/dL (0.7-1.3) L 09/16/16 05:30 Est GFR ( Amer) TNP 09/16/16 05:30 Est GFR (Non-Af Amer) TNP 09/16/16 05:30 BUN/Creatinine Ratio 42.0 09/16/16 05:30 Glucose 99 mg/dL (70-105) 09/16/16 05:30 POC Glucose 164 MG/DL (70-105) H 09/08/16 00:19 Hemoglobin A1c % 5.8 % (4.0-6.0) 09/03/16 09:20 Whole Bld Lactic Acid 1.32 mmol/L (0.60-1.99) 08/31/16 08:20 Calcium 8.6 mg/dL (8.6-10.3) 09/16/16 05:30 Magnesium 2.2 mg/dL (1.9-2.7) 09/06/16 05:55 Total Bilirubin 0.3 mg/dL (0.3-1.0) 09/06/16 05:55 AST 12 U/L (13-39) L 09/06/16 05:55 ALT 53 U/L (7-52) H 09/06/16 05:55 Alkaline Phosphatase 60 U/L (34-104) 09/06/16 05:55 Troponin I 0.02 ng/mL (0.01-0.05) 08/31/16 08:20 B-Natriuretic Peptide 129.0 pg/mL (5.0-100.0) H 09/06/16 05:55 Total Protein 5.4 gm/dL (6.0-8.3) L 09/06/16 05:55 Albumin 2.7 gm/dL (4.2-5.5) L 09/06/16 05:55 Globulin 2.7 gm/dL 09/06/16 05:55 Albumin/Globulin Ratio 1.0 (1.0-1.8) 09/06/16 05:55 TSH 0.39 uIU/ml (0.34-5.60) 08/31/16 08:20 Urine Source CLEAN C 09/03/16 17:00 Urine Color YELLOW 09/03/16 17:00 Urine Clarity CLEAR (CLEAR) 09/03/16 17:00 Urine pH 6.5 09/03/16 17:00 Ur Specific [place] 1.015 (1.005-1.030) 09/03/16 17:00 Urine Protein NEGATIVE mg/dL (NEGATIVE) 09/03/16 17:00 Urine Glucose (UA) NEGATIVE mg/dL (NEGATIVE) 09/03/16 17:00 Urine Ketones NEGATIVE mg/dL (NEGATIVE) 09/03/16 17:00 Urine Blood NEGATIVE (NEGATIVE) 09/03/16 17:00 Urine Nitrate NEGATIVE (NEGATIVE) 09/03/16 17:00 Urine Bilirubin NEGATIVE (NEGATIVE) 09/03/16 17:00 Urine Urobilinogen 0.2 E.U./dL (0.2 - 1.0) 09/03/16 17:00 Ur Leukocyte Esterase NEGATIVE (NEGATIVE) 09/03/16 17:00 Urine RBC NONE SEEN /hpf (0-5) 09/03/16 17:00 Urine WBC NONE SEEN /hpf (0-5) 09/03/16 17:00 Ur Epithelial Cells NONE SEEN /lpf (FEW) 09/03/16 17:00 Urine Bacteria NONE SEEN /hpf (NONE SEEN) 09/03/16 17:00 Vancomycin Trough 17.3 ug/mL (10-20) 09/06/16 09:00 RPR NONREACTIVE (NONREACTIVE) 08/31/16 08:20 - Physical Exam Vitals and I&O: Vital Signs Temp 98.3 F 09/16/16 11:43 Pulse 64 09/16/16 11:43 Resp 19 09/16/16 11:43 BP 138/76 09/16/16 11:43 Pulse Ox 98 09/16/16 11:43 Intake & Output 09/15/16 09/16/16 09/16/16 18:59 06:59 18:59 Intake Total 650 160 Output Total 1500 Balance 650 -1340 Intake: Oral 650 160 Output: Urine 1500 Other: # Voids 3 Active Medications: Current Medications Acetaminophen (Tylenol) 650 mg PO Q4HR PRN PRN Reason: Pain or Fever >101 Stop: 10/30/16 09:31 Acetylcysteine (Mucomyst 20%) 2 ml HHN Q6HRT [facility] Stop: 10/30/16 18:59 Last Admin: 09/16/16 06:59 Dose: 2 ml Albuterol Sulfate (Albuterol 2.5mg/3ml Neb Ud) 2.5 mg HHN QIDRT [facility] Stop: 10/30/16 12:59 Last Admin: 09/16/16 10:53 Dose: 2.5 mg Amiodarone HCl (Cordarone) 200 mg PO DAILY [facility] Stop: 10/31/16 08:59 Last Admin: 09/16/16 09:10 Dose: 200 mg Aspirin (Aspirin Chewable) 81 mg PO DAILY [facility] Stop: 10/31/16 08:59 Last Admin: 09/16/16 09:10 Dose: 81 mg Atorvastatin Calcium (Lipitor) 10 mg PO HS [facility] PRN Reason: Protocol Stop: 10/30/16 20:59 Last Admin: 09/15/16 20:58 Dose: 10 mg Bisacodyl (Dulcolax 10 Mg Supp) 10 mg RC Q72H PRN PRN Reason: Constipation Stop: 10/30/16 09:31 Budesonide (Pulmicort) 0.5 mg N Q12HRT [facility] Stop: 10/30/16 09:44 Last Admin: 09/16/16 07:02 Dose: 0.5 mg Buspirone HCl (Buspar) 10 mg PO TID [facility] Stop: 10/30/16 13:59 Last Admin: 09/16/16 09:09 Dose: 10 mg Donepezil HCl (Aricept) 10 mg PO HS [facility] Stop: 10/30/16 20:59 Last Admin: 09/15/16 20:58 Dose: 10 mg Guaifenesin (Mucinex) 600 mg PO Q12HR PRN PRN Reason: Cough or Congestion Stop: 11/04/16 23:19 Ceftriaxone Sodium 2 gm/ (Sodium Chloride) 100 mls @ 100 mls/hr IV Q24H [facility] Stop: 11/03/16 13:59 Last Admin: 09/15/16 14:12 Dose: 100 mls/hr Fluconazole (Diflucan) 200 mg in 100 mls @ 100 mls/hr IV Q24HR [facility] Stop: 11/07/16 14:14 Last Admin: 09/15/16 14:08 Dose: 100 mls/hr Ipratropium [place] (Atrovent Neb 0.5mg/2.5ml) 0.5 mg HHN Q6HRT [facility] Stop: 11/02/16 00:59 Last Admin: 09/16/16 06:59 Dose: 0.5 mg Magnesium Hydroxide (Milk Of Magnesia) 30 ml PO HS PRN PRN Reason: Constipation Stop: 10/30/16 09:31 Magnesium Hydroxide (Milk Of Magnesia) 30 ml PO DAILY PRN PRN Reason: Constipation Stop: 11/13/16 12:41 Montelukast Sodium (Singulair) 10 mg PO HS [facility] Stop: 10/30/16 20:59 Last Admin: 09/15/16 20:58 Dose: 10 mg Olanzapine (Zyprexa) 15 mg PO DAILY [facility] PRN Reason: Protocol Stop: 10/31/16 08:59 Last Admin: 09/16/16 09:09 Dose: 15 mg Ondansetron HCl (Zofran) 4 mg IV Q8H PRN PRN Reason: Nausea / Vomiting Stop: 10/30/16 09:34 Prednisone (Deltasone) 10 mg PO BID [facility] Stop: 09/17/16 12:24 Last Admin: 09/16/16 09:09 Dose: 10 mg Sodium Phosphate (Fleet Enema) 135 ml RC PRN PRN PRN Reason: Constipation Stop: 10/30/16 09:31 Tamsulosin HCl (Flomax) 0.4 mg PO HS [facility] Stop: 10/30/16 20:59 Last Admin: 09/15/16 20:57 Dose: 0.4 mg General: alert HEENT: NC/AT, PERRLA Neck: Supple Cardiovascular: Normal S1, Normal S2, without murmur Abdomen: soft non-tender, non-distended, positive bowel sound Neurological: no change - Procedures Procedures: Procedures Procedure Code Date ASSISTANCE WITH RESPIRATORY VENTILATION, <24 HRS, CPAP 3R04709 06/29/16 EXCISION OF DUODENUM, ENDO, DIAGN [id number] 07/18/16 EXCISION OF ESOPHAGUS, ENDO, DIAGN [id number] 07/18/16 EXCISION OF STOMACH, ENDO, DIAGN [id number] 07/18/16 POS AIRWAY PRESSURE CPAP 01664 06/29/16 Internal Medicine Assmt/Plan - Assessment Assessment: Pneumonia Copd exacerbation Respiratory Failure htn dyslipidemia dementia - Plan Plan: bronchodilators continue ivabx supplemental o2 cpm Nutritional Asmnt/Malnutr-PDOC - Dietary Evaluation Malnutrition Findings (Please click <Entered> for more info): Nutritional Asmnt/Malnutrition Start: 09/02/16 14: 33 Text: Status: Complete Freq: Document 09/02/16 14:34 GSUN (Rec: 09/02/16 14:52 GSEFRAÍN [email or web address]) Nutritional Asmnt/Malnutrition Patient General Information Nutritional Screening High Risk Screening Diagnosis Pneumonia, acute respiratory failure, COPD exacerbation Pertinent Medical Hx/Surgical Hx HTN, CAD, asthma, COPD, dyslipidemia, PUD, GERD, dementia Subjective Information 75yo M from SNF. Pt was alert, appeared anxious during visit . Pt was admitted here once in past July and twice in past June. Pt was ordered pureed + nectar thick during previous two stays. Most recent swallow eval 06/26/16 ST recommended mech soft + nectar thick. Discussed with pt regarding diet texture and tolerance, pt denied difficulties chewing/ swallowing and expressed preference for current mech soft ground. Encouraged pt to inform RN if any diet texture intolerance noted, pt understood. PO intake 100% all 3 meals yesterday 09/01. Unable to lower pt's head for bedscale due to pt appeared anxious. Current Diet Order/ Nutrition Support Mech soft ground + nectar thick Pertinent Medications Dulcolax, D5, MOM, Solu-Medrol , Vancomycin, Zofran, Fleet Enema Pertinent Labs Reviewed. Glucose 105, 143, 145 Nutritional Hx/Data Height 5 ft 8 in Height (Calculated Centimeters) 172.7 Current Weight (lbs) 162 lb Weight (Calculated Kilograms) 73.5 Weight (Calculated Grams) 03663.0 Usual body Weight (lbs) 161 [place] Body Weight 154lb ([place]) Recent Weight Change No Weight Status Approriate GI Symptoms Food Allergies No Cultural/Ethnic/Synagogue Belief Unknown. Usual diet at home Unknown. Skin Integrity/Comment: Ruddy 11. Skin intact. Current %PO Good (75-100%) Estimated Nutritional Goals BEE in Kcals: Using Current wt Calories/Kcals/Kg 30-35kcal/kg Kcals Calculated 2205-2573kcal Protein: Using Current wt Protein g/k.2-1.4g/kg Protein Calculated 88-103g/kg Fluid: ml 2205-2573ml (1ml/kcal) Nutritional Problem 1. Problem Problem Increased kcal and prot needs related to Etiology hypermetabolic stated aeb Signs/Symptoms: pneumonia, COPD exacerbation, acute respiratory failure Intervention/Recommendation Comments 1. Continue with [facility] soft ground + necatar thick diet ( refer to subjective information in nutrition assessment). Continue to monitor and supervise during meal time. Expected Outcomes/Goals Expected Outcomes/Goals 1. PO intake to meet at least 75% of estimated nutritional needs. Physician Parameters for PEM Serum Albumin (g/dl) 3.5 - 5.0 (Normal)
[2016-09-16] MEDS: Fluconazole 200mg/100mL 200 MG/100 ML BAG IV SCH (14:15)
[2016-09-16] MEDS: cefTRIAXone 2 GM in Sodium Chloride 0.9% 100 ML IV SCH (16:34)
[2016-09-16] MEDS: Atorvastatin Calcium 10 MG TAB PO SCH (21:21)
[2016-09-17] MEDS: Ipratropium Neb 0.5 mg/2.5 mL UD HHN SCH ×2 (01:11→19:15)
[2016-09-17] MEDS: Albuterol Nebulizer 2.5mg/3mL HHN SCH ×4 (07:08→19:15)
[2016-09-17] MEDS: Budesonide 0.5 Mg/2 mL Ud HHN SCH ×2 (07:09→19:15)
[2016-09-17 07:29] LABS: % EOSINOPHILS 0.6 % (0.0-5.0); % MONOCYTES 4.1 % (2.0-10.0); % NEUTROPHILS 86.3 % (40.0-80.0); HEMATOCRIT 34.6 % (39.0-49.0); HEMOGLOBIN 11.8 gm/dL (12.6-17.4); MEAN CELL VOLUME 87.2 fl (80-99); MEAN CORPUSCULAR HEMOGLOBIN 29.8 pg (27.0-31.0); MEAN CORPUSCULAR HGB CONC 34.2 pg (28.0-36.0); MEAN PLATELET VOLUME 8.2 fl; NEUTROPHILE ABSOLUTE 11.2 Th/cmm (1.8-8.0); PLATELET COUNT 167 Th/cmm (150-400); RED BLOOD COUNT 3.97 Mil/cmm (3.80-5.80); RED CELL DISTRIBUTION WIDTH 15.1 % (11.5-20.0)
[2016-09-17 07:38] LABS: ANION GAP 10.6 (7.0-16.0); BUN - UREA NITROGEN 22 mg/dL (7-25); CALCIUM SERUM 8.8 mg/dL (8.6-10.3); CARBON DIOXIDE 28.7 mEq/L (21.0-31.0); CHLORIDE 108 mEq/L (98-107); CREATININE - SERUM 0.5 mg/dL (0.7-1.3); GLUCOSE 88 mg/dL (70-105); POTASSIUM SERUM 4.3 mEq/L (3.5-5.1); SODIUM SERUM 143 mEq/L (136-145)
[2016-09-17] MEDS: Aspirin 81mg Chewable Tab PO SCH (08:31)
--- NOTE | 2016-09-17 12:16 | Internal Medicine Prog Note ---
Internal Medicine Subjective - Subjective Service Date: 09/17/16 Patient seen and examined:: with staff Patient is:: awake Per staff patient is:: no adverse event Internal Medicine Objective - Results Result Diagrams: 09/17/16 06:00 09/17/16 06:00 Recent Labs: Laboratory Last Values WBC 13.0 Th/cmm (4.8-10.8) H 09/17/16 06:00 RBC 3.97 Mil/cmm (3.80-5.80) 09/17/16 06:00 Hgb 11.8 gm/dL (12.6-17.4) L 09/17/16 06:00 Hct 34.6 % (39.0-49.0) L 09/17/16 06:00 MCV 87.2 fl (80-99) 09/17/16 06:00 MCH 29.8 pg (27.0-31.0) 09/17/16 06:00 MCHC Differential 34.2 pg (28.0-36.0) 09/17/16 06:00 RDW 15.1 % (11.5-20.0) 09/17/16 06:00 Plt Count 167 Th/cmm (150-400) 09/17/16 06:00 MPV 8.2 fl 09/17/16 06:00 Neutrophils % 86.3 % (40.0-80.0) H 09/17/16 06:00 Band Neutrophils % 1 % (0-10) 09/15/16 05:40 Lymphocytes % 9.0 % (20.0-50.0) L 09/17/16 06:00 Monocytes % 4.1 % (2.0-10.0) 09/17/16 06:00 Eosinophils % 0.6 % (0.0-5.0) 09/17/16 06:00 Basophils % 0.0 % (0.0-2.0) 09/17/16 06:00 Neutrophils (Manual) 86 % (40-80) H 09/15/16 05:40 Lymphocytes 9 % (20-50) L 09/15/16 05:40 Monocytes 4 % (2-10) 09/15/16 05:40 Eosinophils 1 % (0-5) 09/09/16 07:39 Basophils 1 % (0-3) 09/09/16 07:39 Platelet Estimate ADEQUATE (NORMAL) 09/15/16 05:40 Platelet Morphology NORMAL (NORMAL) 09/15/16 05:40 Poikilocytosis 1+ 09/08/16 06:41 Anisocytosis 1+ 09/13/16 06:22 Ovalocytes 1+ 09/08/16 06:41 RBC Morph Micro Appear NORMAL (NORMAL) 09/15/16 05:40 PT 9.8 SECONDS (9.5-11.5) 08/31/16 08:20 INR 0.99 (0.5-1.4) 08/31/16 08:20 Specimen Source Arterial 08/31/16 07:36 Sample Site Right Radial 08/31/16 07:36 pH 7.42 (7.35-7.45) 08/31/16 07:36 pCO2 42.0 mmHg (35.0-45.0) 08/31/16 07:36 pO2 53.0 mmHg (80.0-100.0) L 08/31/16 07:36 HCO3 27.2 mmol/L (20.0-26.0) H 08/31/16 07:36 Base Excess 2.4 mmol/L (-3.0-3.0) 08/31/16 07:36 O2 Saturation 88.0 % (92.0-100.0) L 08/31/16 07:36 Praveen Test YES 08/31/16 07:36 Vent Rate NA 08/31/16 07:36 Inspired O2 21 08/31/16 07:36 Tidal Volume NA 08/31/16 07:36 PEEP NA 08/31/16 07:36 Pressure (ins/psv/peep) NA 08/31/16 07:36 Critical Value SH 08/31/16 07:36 Sodium 143 mEq/L (136-145) 09/17/16 06:00 Potassium 4.3 mEq/L (3.5-5.1) 09/17/16 06:00 Chloride 108 mEq/L (98-107) H 09/17/16 06:00 Carbon Dioxide 28.7 mEq/L (21.0-31.0) 09/17/16 06:00 Anion Gap 10.6 (7.0-16.0) 09/17/16 06:00 BUN 22 mg/dL (7-25) 09/17/16 06:00 Creatinine 0.5 mg/dL (0.7-1.3) L 09/17/16 06:00 Est GFR ( Amer) TNP 09/17/16 06:00 Est GFR (Non-Af Amer) TNP 09/17/16 06:00 BUN/Creatinine Ratio 44.0 09/17/16 06:00 Glucose 88 mg/dL (70-105) 09/17/16 06:00 POC Glucose 164 MG/DL (70-105) H 09/08/16 00:19 Hemoglobin A1c % 5.8 % (4.0-6.0) 09/03/16 09:20 Whole Bld Lactic Acid 1.32 mmol/L (0.60-1.99) 08/31/16 08:20 Calcium 8.8 mg/dL (8.6-10.3) 09/17/16 06:00 Magnesium 2.2 mg/dL (1.9-2.7) 09/06/16 05:55 Total Bilirubin 0.3 mg/dL (0.3-1.0) 09/06/16 05:55 AST 12 U/L (13-39) L 09/06/16 05:55 ALT 53 U/L (7-52) H 09/06/16 05:55 Alkaline Phosphatase 60 U/L (34-104) 09/06/16 05:55 Troponin I 0.02 ng/mL (0.01-0.05) 08/31/16 08:20 B-Natriuretic Peptide 129.0 pg/mL (5.0-100.0) H 09/06/16 05:55 Total Protein 5.4 gm/dL (6.0-8.3) L 09/06/16 05:55 Albumin 2.7 gm/dL (4.2-5.5) L 09/06/16 05:55 Globulin 2.7 gm/dL 09/06/16 05:55 Albumin/Globulin Ratio 1.0 (1.0-1.8) 09/06/16 05:55 TSH 0.39 uIU/ml (0.34-5.60) 08/31/16 08:20 Urine Source CLEAN C 09/03/16 17:00 Urine Color YELLOW 09/03/16 17:00 Urine Clarity CLEAR (CLEAR) 09/03/16 17:00 Urine pH 6.5 09/03/16 17:00 Ur Specific [place] 1.015 (1.005-1.030) 09/03/16 17:00 Urine Protein NEGATIVE mg/dL (NEGATIVE) 09/03/16 17:00 Urine Glucose (UA) NEGATIVE mg/dL (NEGATIVE) 09/03/16 17:00 Urine Ketones NEGATIVE mg/dL (NEGATIVE) 09/03/16 17:00 Urine Blood NEGATIVE (NEGATIVE) 09/03/16 17:00 Urine Nitrate NEGATIVE (NEGATIVE) 09/03/16 17:00 Urine Bilirubin NEGATIVE (NEGATIVE) 09/03/16 17:00 Urine Urobilinogen 0.2 E.U./dL (0.2 - 1.0) 09/03/16 17:00 Ur Leukocyte Esterase NEGATIVE (NEGATIVE) 09/03/16 17:00 Urine RBC NONE SEEN /hpf (0-5) 09/03/16 17:00 Urine WBC NONE SEEN /hpf (0-5) 09/03/16 17:00 Ur Epithelial Cells NONE SEEN /lpf (FEW) 09/03/16 17:00 Urine Bacteria NONE SEEN /hpf (NONE SEEN) 09/03/16 17:00 Vancomycin Trough 17.3 ug/mL (10-20) 09/06/16 09:00 RPR NONREACTIVE (NONREACTIVE) 08/31/16 08:20 - Physical Exam Vitals and I&O: Vital Signs Temp 97.5 F 09/17/16 11:47 Pulse 64 09/17/16 11:47 Resp 19 09/17/16 11:47 BP 118/69 09/17/16 11:47 Pulse Ox 98 09/17/16 11:47 Intake & Output 09/16/16 09/17/16 09/17/16 18:59 06:59 18:59 Intake Total 600 100 Output Total 750 1650 Balance -150 -1550 Intake: Oral 600 100 Output: Urine 750 1650 Other: # Voids 2 Active Medications: Current Medications Acetaminophen (Tylenol) 650 mg PO Q4HR PRN PRN Reason: Pain or Fever >101 Stop: 10/30/16 09:31 Acetylcysteine (Mucomyst 20%) 2 ml HHN Q6HRT [facility] Stop: 10/30/16 18:59 Last Admin: 09/17/16 07:09 Dose: 2 ml Albuterol Sulfate (Albuterol 2.5mg/3ml Neb Ud) 2.5 mg HHN QIDRT [facility] Stop: 10/30/16 12:59 Last Admin: 09/17/16 11:46 Dose: 2.5 mg Amiodarone HCl (Cordarone) 200 mg PO DAILY [facility] Stop: 10/31/16 08:59 Last Admin: 09/17/16 08:32 Dose: Not Given Aspirin (Aspirin Chewable) 81 mg PO DAILY [facility] Stop: 10/31/16 08:59 Last Admin: 09/17/16 08:31 Dose: 81 mg Atorvastatin Calcium (Lipitor) 10 mg PO HS [facility] PRN Reason: Protocol Stop: 10/30/16 20:59 Last Admin: 09/16/16 21:21 Dose: 10 mg Bisacodyl (Dulcolax 10 Mg Supp) 10 mg RC Q72H PRN PRN Reason: Constipation Stop: 10/30/16 09:31 Budesonide (Pulmicort) 0.5 mg HHN Q12HRT [facility] Stop: 10/30/16 09:44 Last Admin: 09/17/16 07:09 Dose: 0.5 mg Buspirone HCl (Buspar) 10 mg PO TID [facility] Stop: 10/30/16 13:59 Last Admin: 09/17/16 08:31 Dose: 10 mg Donepezil HCl (Aricept) 10 mg PO HS [facility] Stop: 10/30/16 20:59 Last Admin: 09/16/16 21:22 Dose: 10 mg Guaifenesin (Mucinex) 600 mg PO Q12HR PRN PRN Reason: Cough or Congestion Stop: 11/04/16 23:19 Ceftriaxone Sodium 2 gm/ (Sodium Chloride) 100 mls @ 100 mls/hr IV Q24H [facility] Stop: 11/03/16 13:59 Last Admin: 09/16/16 16:34 Dose: 100 mls/hr Fluconazole (Diflucan) 200 mg in 100 mls @ 100 mls/hr IV Q24HR [facility] Stop: 11/07/16 14:14 Last Admin: 09/16/16 14:15 Dose: 100 mls/hr Ipratropium [place] (Atrovent Neb 0.5mg/2.5ml) 0.5 mg HHN Q6HRT [facility] Stop: 11/02/16 00:59 Last Admin: 09/17/16 01:11 Dose: 0.5 mg Magnesium Hydroxide (Milk Of Magnesia) 30 ml PO HS PRN PRN Reason: Constipation Stop: 10/30/16 09:31 Magnesium Hydroxide (Milk Of Magnesia) 30 ml PO DAILY PRN PRN Reason: Constipation Stop: 11/13/16 12:41 Montelukast Sodium (Singulair) 10 mg PO HS [facility] Stop: 10/30/16 20:59 Last Admin: 09/16/16 21:23 Dose: 10 mg Olanzapine (Zyprexa) 15 mg PO DAILY [facility] PRN Reason: Protocol Stop: 10/31/16 08:59 Last Admin: 09/17/16 08:31 Dose: 15 mg Ondansetron HCl (Zofran) 4 mg IV Q8H PRN PRN Reason: Nausea / Vomiting Stop: 10/30/16 09:34 Prednisone (Deltasone) 10 mg PO BID [facility] Stop: 09/17/16 12:24 Last Admin: 09/17/16 08:31 Dose: 10 mg Sodium Phosphate (Fleet Enema) 135 ml RC PRN PRN PRN Reason: Constipation Stop: 10/30/16 09:31 Tamsulosin HCl (Flomax) 0.4 mg PO HS [facility] Stop: 10/30/16 20:59 Last Admin: 09/16/16 21:23 Dose: 0.4 mg General: alert HEENT: NC/AT Neck: Supple Lungs: CTAB Cardiovascular: RRR, Normal S1, Normal S2, without murmur Abdomen: soft non-tender, non-distended, positive bowel sound Neurological: no change - Procedures Procedures: Procedures Procedure Code Date ASSISTANCE WITH RESPIRATORY VENTILATION, <24 HRS, CPAP [id number] 06/29/16 EXCISION OF DUODENUM, ENDO, DIAGN [id number] 07/18/16 EXCISION OF ESOPHAGUS, ENDO, DIAGN [id number] 07/18/16 EXCISION OF STOMACH, ENDO, DIAGN [id number] 07/18/16 POS AIRWAY PRESSURE CPAP 51090 06/29/16 Internal Medicine Assmt/Plan - Assessment Assessment: Pneumonia Copd exacerbation Respiratory Failure htn dyslipidemia dementia - Plan Plan: bronchodilators continue ivabx supplemental o2 cpm Nutritional Asmnt/Malnutr-PDOC - Dietary Evaluation Malnutrition Findings (Please click <Entered> for more info): Nutritional Asmnt/Malnutrition Start: 09/02/16 14: 33 Text: Status: Complete Freq: Document 09/02/16 14:34 GSUN (Rec: 09/02/16 14:52 GSEFRAÍN [email or web address]) Nutritional Asmnt/Malnutrition Patient General Information Nutritional Screening High Risk Screening Diagnosis Pneumonia, acute respiratory failure, COPD exacerbation Pertinent Medical Hx/Surgical Hx HTN, CAD, asthma, COPD, dyslipidemia, PUD, GERD, dementia Subjective Information 75yo M from SNF. Pt was alert, appeared anxious during visit . Pt was admitted here once in past July and twice in past June. Pt was ordered pureed + nectar thick during previous two stays. Most recent swallow eval 06/26/16 ST recommended mech soft + nectar thick. Discussed with pt regarding diet texture and tolerance, pt denied difficulties chewing/ swallowing and expressed preference for current mech soft ground. Encouraged pt to inform RN if any diet texture intolerance noted, pt understood. PO intake 100% all 3 meals yesterday 09/01. Unable to lower pt's head for bedscale due to pt appeared anxious. Current Diet Order/ Nutrition Support Mech soft ground + nectar thick Pertinent Medications Dulcolax, D5, MOM, Solu-Medrol , Vancomycin, Zofran, Fleet Enema Pertinent Labs Reviewed. Glucose 105, 143, 145 Nutritional Hx/Data Height 5 ft 8 in Height (Calculated Centimeters) 172.7 Current Weight (lbs) 162 lb Weight (Calculated Kilograms) 73.5 Weight (Calculated Grams) 34137.0 Usual body Weight (lbs) 161 [place] Body Weight 154lb ([place]) Recent Weight Change No Weight Status Approriate GI Symptoms Food Allergies No Cultural/Ethnic/[place] Belief Unknown. Usual diet at home Unknown. Skin Integrity/Comment: Ruddy 11. Skin intact. Current %PO Good (75-100%) Estimated Nutritional Goals BEE in Kcals: Using Current wt Calories/Kcals/Kg 30-35kcal/kg Kcals Calculated 2205-2573kcal Protein: Using Current wt Protein g/k.2-1.4g/kg Protein Calculated 88-103g/kg Fluid: ml 2205-2573ml (1ml/kcal) Nutritional Problem 1. Problem Problem Increased kcal and prot needs related to Etiology hypermetabolic stated aeb Signs/Symptoms: pneumonia, COPD exacerbation, acute respiratory failure Intervention/Recommendation Comments 1. Continue with [facility] soft ground + necatar thick diet ( refer to subjective information in nutrition assessment). Continue to monitor and supervise during meal time. Expected Outcomes/Goals Expected Outcomes/Goals 1. PO intake to meet at least 75% of estimated nutritional needs. Physician Parameters for PEM Serum Albumin (g/dl) 3.5 - 5.0 (Normal)
[2016-09-17] MEDS: cefTRIAXone 2 GM in Sodium Chloride 0.9% 100 ML IV SCH (13:59)
[2016-09-17] MEDS: Fluconazole 200mg/100mL 200 MG/100 ML BAG IV SCH (15:30)
[2016-09-17] MEDS: Atorvastatin Calcium 10 MG TAB PO SCH (20:47)
[2016-09-18] MEDS: Ipratropium Neb 0.5 mg/2.5 mL UD HHN SCH ×4 (07:36→20:09)
[2016-09-18] MEDS: Budesonide 0.5 Mg/2 mL Ud HHN SCH ×2 (07:36→20:11)
[2016-09-18] MEDS: Albuterol Nebulizer 2.5mg/3mL HHN SCH ×4 (07:36→20:09)
[2016-09-18] MEDS: Aspirin 81mg Chewable Tab PO SCH (09:53)
[2016-09-18] MEDS: cefTRIAXone 2 GM in Sodium Chloride 0.9% 100 ML IV SCH (13:41)
[2016-09-18] MEDS: Fluconazole 200mg/100mL 200 MG/100 ML BAG IV SCH (14:44)
--- NOTE | 2016-09-18 15:36 | Internal Medicine Prog Note ---
Internal Medicine Subjective - Subjective Service Date: 09/18/16 Patient seen and examined:: with staff Patient is:: awake Per staff patient is:: no adverse event Internal Medicine Objective - Results Result Diagrams: 09/17/16 06:00 09/17/16 06:00 Recent Labs: Laboratory Last Values WBC 13.0 Th/cmm (4.8-10.8) H 09/17/16 06:00 RBC 3.97 Mil/cmm (3.80-5.80) 09/17/16 06:00 Hgb 11.8 gm/dL (12.6-17.4) L 09/17/16 06:00 Hct 34.6 % (39.0-49.0) L 09/17/16 06:00 MCV 87.2 fl (80-99) 09/17/16 06:00 MCH 29.8 pg (27.0-31.0) 09/17/16 06:00 MCHC Differential 34.2 pg (28.0-36.0) 09/17/16 06:00 RDW 15.1 % (11.5-20.0) 09/17/16 06:00 Plt Count 167 Th/cmm (150-400) 09/17/16 06:00 MPV 8.2 fl 09/17/16 06:00 Neutrophils % 86.3 % (40.0-80.0) H 09/17/16 06:00 Band Neutrophils % 1 % (0-10) 09/15/16 05:40 Lymphocytes % 9.0 % (20.0-50.0) L 09/17/16 06:00 Monocytes % 4.1 % (2.0-10.0) 09/17/16 06:00 Eosinophils % 0.6 % (0.0-5.0) 09/17/16 06:00 Basophils % 0.0 % (0.0-2.0) 09/17/16 06:00 Neutrophils (Manual) 86 % (40-80) H 09/15/16 05:40 Lymphocytes 9 % (20-50) L 09/15/16 05:40 Monocytes 4 % (2-10) 09/15/16 05:40 Eosinophils 1 % (0-5) 09/09/16 07:39 Basophils 1 % (0-3) 09/09/16 07:39 Platelet Estimate ADEQUATE (NORMAL) 09/15/16 05:40 Platelet Morphology NORMAL (NORMAL) 09/15/16 05:40 Poikilocytosis 1+ 09/08/16 06:41 Anisocytosis 1+ 09/13/16 06:22 Ovalocytes 1+ 09/08/16 06:41 RBC Morph Micro Appear NORMAL (NORMAL) 09/15/16 05:40 PT 9.8 SECONDS (9.5-11.5) 08/31/16 08:20 INR 0.99 (0.5-1.4) 08/31/16 08:20 Specimen Source Arterial 08/31/16 07:36 Sample Site Right Radial 08/31/16 07:36 pH 7.42 (7.35-7.45) 08/31/16 07:36 pCO2 42.0 mmHg (35.0-45.0) 08/31/16 07:36 pO2 53.0 mmHg (80.0-100.0) L 08/31/16 07:36 HCO3 27.2 mmol/L (20.0-26.0) H 08/31/16 07:36 Base Excess 2.4 mmol/L (-3.0-3.0) 08/31/16 07:36 O2 Saturation 88.0 % (92.0-100.0) L 08/31/16 07:36 Praveen Test YES 08/31/16 07:36 Vent Rate NA 08/31/16 07:36 Inspired O2 21 08/31/16 07:36 Tidal Volume NA 08/31/16 07:36 PEEP NA 08/31/16 07:36 Pressure (ins/psv/peep) NA 08/31/16 07:36 Critical Value SH 08/31/16 07:36 Sodium 143 mEq/L (136-145) 09/17/16 06:00 Potassium 4.3 mEq/L (3.5-5.1) 09/17/16 06:00 Chloride 108 mEq/L (98-107) H 09/17/16 06:00 Carbon Dioxide 28.7 mEq/L (21.0-31.0) 09/17/16 06:00 Anion Gap 10.6 (7.0-16.0) 09/17/16 06:00 BUN 22 mg/dL (7-25) 09/17/16 06:00 Creatinine 0.5 mg/dL (0.7-1.3) L 09/17/16 06:00 Est GFR ( Amer) TNP 09/17/16 06:00 Est GFR (Non-Af Amer) TNP 09/17/16 06:00 BUN/Creatinine Ratio 44.0 09/17/16 06:00 Glucose 88 mg/dL (70-105) 09/17/16 06:00 POC Glucose 126 MG/DL (70 - 105) H 09/17/16 23:57 Hemoglobin A1c % 5.8 % (4.0-6.0) 09/03/16 09:20 Whole Bld Lactic Acid 1.32 mmol/L (0.60-1.99) 08/31/16 08:20 Calcium 8.8 mg/dL (8.6-10.3) 09/17/16 06:00 Magnesium 2.2 mg/dL (1.9-2.7) 09/06/16 05:55 Total Bilirubin 0.3 mg/dL (0.3-1.0) 09/06/16 05:55 AST 12 U/L (13-39) L 09/06/16 05:55 ALT 53 U/L (7-52) H 09/06/16 05:55 Alkaline Phosphatase 60 U/L (34-104) 09/06/16 05:55 Troponin I 0.02 ng/mL (0.01-0.05) 08/31/16 08:20 B-Natriuretic Peptide 129.0 pg/mL (5.0-100.0) H 09/06/16 05:55 Total Protein 5.4 gm/dL (6.0-8.3) L 09/06/16 05:55 Albumin 2.7 gm/dL (4.2-5.5) L 09/06/16 05:55 Globulin 2.7 gm/dL 09/06/16 05:55 Albumin/Globulin Ratio 1.0 (1.0-1.8) 09/06/16 05:55 TSH 0.39 uIU/ml (0.34-5.60) 08/31/16 08:20 Urine Source CLEAN C 09/03/16 17:00 Urine Color YELLOW 09/03/16 17:00 Urine Clarity CLEAR (CLEAR) 09/03/16 17:00 Urine pH 6.5 09/03/16 17:00 Ur Specific [place] 1.015 (1.005-1.030) 09/03/16 17:00 Urine Protein NEGATIVE mg/dL (NEGATIVE) 09/03/16 17:00 Urine Glucose (UA) NEGATIVE mg/dL (NEGATIVE) 09/03/16 17:00 Urine Ketones NEGATIVE mg/dL (NEGATIVE) 09/03/16 17:00 Urine Blood NEGATIVE (NEGATIVE) 09/03/16 17:00 Urine Nitrate NEGATIVE (NEGATIVE) 09/03/16 17:00 Urine Bilirubin NEGATIVE (NEGATIVE) 09/03/16 17:00 Urine Urobilinogen 0.2 E.U./dL (0.2 - 1.0) 09/03/16 17:00 Ur Leukocyte Esterase NEGATIVE (NEGATIVE) 09/03/16 17:00 Urine RBC NONE SEEN /hpf (0-5) 09/03/16 17:00 Urine WBC NONE SEEN /hpf (0-5) 09/03/16 17:00 Ur Epithelial Cells NONE SEEN /lpf (FEW) 09/03/16 17:00 Urine Bacteria NONE SEEN /hpf (NONE SEEN) 09/03/16 17:00 Vancomycin Trough 17.3 ug/mL (10-20) 09/06/16 09:00 RPR NONREACTIVE (NONREACTIVE) 08/31/16 08:20 - Physical Exam Vitals and I&O: Vital Signs Temp 97.3 F 09/18/16 08:00 Pulse 97 09/18/16 09:53 Resp 20 09/18/16 08:01 BP 138/64 09/18/16 08:00 Pulse Ox 98 09/18/16 08:01 Intake & Output 09/17/16 09/18/16 09/18/16 18:59 06:59 18:59 Intake Total 900 320 100 Output Total 600 0 Balance 300 320 100 Intake: Intake, IV Amount 200 100 Fluconazole 200mg/100mL 100 200 mg In 100 ml @ 100 mls/hr IV Q24HR [facility] Rx#: [id number] cefTRIAXone 2 gm In 100 100 Sodium Chloride 0.9% 100 ml @ 100 mls/hr IV Q24H [facility] Rx#:[id number] Oral 700 320 Output: Urine 600 Stool 0 Other: # Voids 2 3 # Bowel Movements 3 Active Medications: Current Medications Acetaminophen (Tylenol) 650 mg PO Q4HR PRN PRN Reason: Pain or Fever >101 Stop: 10/30/16 09:31 Acetylcysteine (Mucomyst 20%) 2 ml HHN Q6HRT [facility] Stop: 10/30/16 18:59 Last Admin: 09/18/16 12:14 Dose: 2 ml Albuterol Sulfate (Albuterol 2.5mg/3ml Neb Ud) 2.5 mg HHN QIDRT [facility] Stop: 10/30/16 12:59 Last Admin: 09/18/16 12:14 Dose: 2.5 mg Amiodarone HCl (Cordarone) 200 mg PO DAILY [facility] Stop: 10/31/16 08:59 Last Admin: 09/18/16 09:53 Dose: 200 mg Aspirin (Aspirin Chewable) 81 mg PO DAILY [facility] Stop: 10/31/16 08:59 Last Admin: 09/18/16 09:53 Dose: 81 mg Atorvastatin Calcium (Lipitor) 10 mg PO HS [facility] PRN Reason: Protocol Stop: 10/30/16 20:59 Last Admin: 09/17/16 20:47 Dose: 10 mg Bisacodyl (Dulcolax 10 Mg Supp) 10 mg RC Q72H PRN PRN Reason: Constipation Stop: 10/30/16 09:31 Budesonide (Pulmicort) 0.5 mg HHN Q12HRT [facility] Stop: 10/30/16 09:44 Last Admin: 09/18/16 07:36 Dose: 0.5 mg Buspirone HCl (Buspar) 10 mg PO TID [facility] Stop: 10/30/16 13:59 Last Admin: 09/18/16 14:09 Dose: 10 mg Donepezil HCl (Aricept) 10 mg PO HS [facility] Stop: 10/30/16 20:59 Last Admin: 09/17/16 20:48 Dose: 10 mg Guaifenesin (Mucinex) 600 mg PO Q12HR PRN PRN Reason: Cough or Congestion Stop: 11/04/16 23:19 Fluconazole (Diflucan) 200 mg in 100 mls @ 100 mls/hr IV Q24HR [facility] Stop: 11/07/16 14:14 Last Admin: 09/18/16 14:44 Dose: 100 mls/hr Ipratropium [place] (Atrovent Neb 0.5mg/2.5ml) 0.5 mg HHN Q6HRT [facility] Stop: 11/02/16 00:59 Last Admin: 09/18/16 12:14 Dose: 0.5 mg Magnesium Hydroxide (Milk Of Magnesia) 30 ml PO HS PRN PRN Reason: Constipation Stop: 10/30/16 09:31 Magnesium Hydroxide (Milk Of Magnesia) 30 ml PO DAILY PRN PRN Reason: Constipation Stop: 11/13/16 12:41 Montelukast Sodium (Singulair) 10 mg PO HS [facility] Stop: 10/30/16 20:59 Last Admin: 09/17/16 20:48 Dose: 10 mg Olanzapine (Zyprexa) 15 mg PO DAILY [facility] PRN Reason: Protocol Stop: 10/31/16 08:59 Last Admin: 09/18/16 09:53 Dose: 15 mg Ondansetron HCl (Zofran) 4 mg IV Q8H PRN PRN Reason: Nausea / Vomiting Stop: 10/30/16 09:34 Sodium Phosphate (Fleet Enema) 135 ml RC PRN PRN PRN Reason: Constipation Stop: 10/30/16 09:31 Tamsulosin HCl (Flomax) 0.4 mg PO HS [facility] Stop: 10/30/16 20:59 Last Admin: 09/17/16 20:48 Dose: 0.4 mg General: alert HEENT: NC/AT, PERRLA Neck: Supple Lungs: CTAB Cardiovascular: RRR, Normal S1, Normal S2, without murmur Abdomen: soft non-tender, non-distended Neurological: no change - Procedures Procedures: Procedures Procedure Code Date ASSISTANCE WITH RESPIRATORY VENTILATION, <24 HRS, CPAP 4G64531 06/29/16 EXCISION OF DUODENUM, ENDO, DIAGN [id number] 07/18/16 EXCISION OF ESOPHAGUS, ENDO, DIAGN [id number] 07/18/16 EXCISION OF STOMACH, ENDO, DIAGN [id number] 07/18/16 POS AIRWAY PRESSURE CPAP 09141 06/29/16 Internal Medicine Assmt/Plan - Assessment Assessment: Pneumonia Copd exacerbation Respiratory Failure htn dyslipidemia dementia - Plan Plan: bronchodilators continue ivabx supplemental o2 cpm Nutritional Asmnt/Malnutr-PDOC - Dietary Evaluation Malnutrition Findings (Please click <Entered> for more info): Nutritional Asmnt/Malnutrition Start: 09/02/16 14: 33 Text: Status: Complete Freq: Document 09/02/16 14:34 GSEFRAÍN (Rec: 09/02/16 14:52 GSEFRAÍN [email or web address]) Nutritional Asmnt/Malnutrition Patient General Information Nutritional Screening High Risk Screening Diagnosis Pneumonia, acute respiratory failure, COPD exacerbation Pertinent Medical Hx/Surgical Hx HTN, CAD, asthma, COPD, dyslipidemia, PUD, GERD, dementia Subjective Information 75yo M from SNF. Pt was alert, appeared anxious during visit . Pt was admitted here once in past July and twice in past June. Pt was ordered pureed + nectar thick during previous two stays. Most recent swallow eval 06/26/16 ST recommended mech soft + nectar thick. Discussed with pt regarding diet texture and tolerance, pt denied difficulties chewing/ swallowing and expressed preference for current mech soft ground. Encouraged pt to inform RN if any diet texture intolerance noted, pt understood. PO intake 100% all 3 meals yesterday 09/01. Unable to lower pt's head for bedscale due to pt appeared anxious. Current Diet Order/ Nutrition Support Mech soft ground + nectar thick Pertinent Medications Dulcolax, D5, MOM, Solu-Medrol , Vancomycin, Zofran, Fleet Enema Pertinent Labs Reviewed. Glucose 105, 143, 145 Nutritional Hx/Data Height 5 ft 8 in Height (Calculated Centimeters) 172.7 Current Weight (lbs) 162 lb Weight (Calculated Kilograms) 73.5 Weight (Calculated Grams) 11684.0 Usual body Weight (lbs) 161 [place] Body Weight 154lb ([place]) Recent Weight Change No Weight Status Approriate GI Symptoms Food Allergies No Cultural/Ethnic/Amish Belief Unknown. Usual diet at home Unknown. Skin Integrity/Comment: Ruddy 11. Skin intact. Current %PO Good (75-100%) Estimated Nutritional Goals BEE in Kcals: Using Current wt Calories/Kcals/Kg 30-35kcal/kg Kcals Calculated 2205-2573kcal Protein: Using Current wt Protein g/k.2-1.4g/kg Protein Calculated 88-103g/kg Fluid: ml 2205-2573ml (1ml/kcal) Nutritional Problem 1. Problem Problem Increased kcal and prot needs related to Etiology hypermetabolic stated aeb Signs/Symptoms: pneumonia, COPD exacerbation, acute respiratory failure Intervention/Recommendation Comments 1. Continue with mech soft ground + necatar thick diet ( refer to subjective information in nutrition assessment). Continue to monitor and supervise during meal time. Expected Outcomes/Goals Expected Outcomes/Goals 1. PO intake to meet at least 75% of estimated nutritional needs. Physician Parameters for PEM Serum Albumin (g/dl) 3.5 - 5.0 (Normal)
[2016-09-18] MEDS: Atorvastatin Calcium 10 MG TAB PO SCH (21:05)
[2016-09-19] MEDS: Ipratropium Neb 0.5 mg/2.5 mL UD HHN SCH ×4 (01:30→19:04)
[2016-09-19 05:43] LABS: % BASOPHILS 0.1 % (0.0-2.0); % LYMPHOCYTES 14.6 % (20.0-50.0); % MONOCYTES 4.1 % (2.0-10.0); % NEUTROPHILS 79.2 % (40.0-80.0); HEMATOCRIT 34.8 % (39.0-49.0); HEMOGLOBIN 11.7 gm/dL (12.6-17.4); MEAN CELL VOLUME 87.5 fl (80-99); MEAN CORPUSCULAR HEMOGLOBIN 29.5 pg (27.0-31.0); MEAN CORPUSCULAR HGB CONC 33.7 pg (28.0-36.0); MEAN PLATELET VOLUME 7.7 fl; NEUTROPHILE ABSOLUTE 8.6 Th/cmm (1.8-8.0); PLATELET COUNT 155 Th/cmm (150-400); RED BLOOD COUNT 3.98 Mil/cmm (3.80-5.80); RED CELL DISTRIBUTION WIDTH 15.5 % (11.5-20.0); WHITE BLOOD COUNT 10.8 Th/cmm (4.8-10.8)
[2016-09-19 06:18] LABS: ANION GAP 6.9 (7.0-16.0); BUN - UREA NITROGEN 22 mg/dL (7-25); BUN/CREATININE RATIO 36.7; CALCIUM SERUM 8.9 mg/dL (8.6-10.3); CARBON DIOXIDE 29.4 mEq/L (21.0-31.0); CHLORIDE 108 mEq/L (98-107); CREATININE - SERUM 0.6 mg/dL (0.7-1.3); GLUCOSE 87 mg/dL (70-105); POTASSIUM SERUM 4.3 mEq/L (3.5-5.1); SODIUM SERUM 140 mEq/L (136-145)
[2016-09-19] MEDS: Budesonide 0.5 Mg/2 mL Ud HHN SCH (08:01)
[2016-09-19] MEDS: Aspirin 81mg Chewable Tab PO SCH (08:31)
--- NOTE | 2016-09-19 10:22 | Diagnostic Imaging Report ---
Portable chest x-ray HISTORY: Shortness of breath Compared with the prior exam of September 16, 2016, there remains density in the left lower hemithorax consistent with a pleural effusion. Underlying consolidation and/or atelectasis cannot be excluded. There remains elevation of the left hemidiaphragm IMPRESSION: 1. No significant change in the cardiopulmonary status.
[2016-09-19] MEDS: Albuterol Nebulizer 2.5mg/3mL HHN SCH ×3 (12:21→19:04)
[2016-09-19] MEDS: Fluconazole 200mg/100mL 200 MG/100 ML BAG IV SCH (13:37)
--- NOTE | 2016-09-19 16:37 | Internal Medicine Prog Note ---
Internal Medicine Subjective - Subjective Patient seen and examined:: with staff, chart reviewed Patient is:: awake, verbal, interactive Patient Complaints of:: congestion Per staff patient is:: no adverse event, confused Internal Medicine Objective - Results Result Diagrams: 09/19/16 05:21 09/19/16 05:21 Recent Labs: Laboratory Last Values WBC 10.8 Th/cmm (4.8-10.8) 09/19/16 05:21 RBC 3.98 Mil/cmm (3.80-5.80) 09/19/16 05:21 Hgb 11.7 gm/dL (12.6-17.4) L 09/19/16 05:21 Hct 34.8 % (39.0-49.0) L 09/19/16 05:21 MCV 87.5 fl (80-99) 09/19/16 05:21 MCH 29.5 pg (27.0-31.0) 09/19/16 05:21 MCHC Differential 33.7 pg (28.0-36.0) 09/19/16 05:21 RDW 15.5 % (11.5-20.0) 09/19/16 05:21 Plt Count 155 Th/cmm (150-400) 09/19/16 05:21 MPV 7.7 fl 09/19/16 05:21 Neutrophils % 79.2 % (40.0-80.0) 09/19/16 05:21 Band Neutrophils % 1 % (0-10) 09/15/16 05:40 Lymphocytes % 14.6 % (20.0-50.0) L 09/19/16 05:21 Monocytes % 4.1 % (2.0-10.0) 09/19/16 05:21 Eosinophils % 2.0 % (0.0-5.0) 09/19/16 05:21 Basophils % 0.1 % (0.0-2.0) 09/19/16 05:21 Neutrophils (Manual) 86 % (40-80) H 09/15/16 05:40 Lymphocytes 9 % (20-50) L 09/15/16 05:40 Monocytes 4 % (2-10) 09/15/16 05:40 Eosinophils 1 % (0-5) 09/09/16 07:39 Basophils 1 % (0-3) 09/09/16 07:39 Platelet Estimate ADEQUATE (NORMAL) 09/15/16 05:40 Platelet Morphology NORMAL (NORMAL) 09/15/16 05:40 Poikilocytosis 1+ 09/08/16 06:41 Anisocytosis 1+ 09/13/16 06:22 Ovalocytes 1+ 09/08/16 06:41 RBC Morph Micro Appear NORMAL (NORMAL) 09/15/16 05:40 PT 9.8 SECONDS (9.5-11.5) 08/31/16 08:20 INR 0.99 (0.5-1.4) 08/31/16 08:20 Specimen Source Arterial 08/31/16 07:36 Sample Site Right Radial 08/31/16 07:36 pH 7.42 (7.35-7.45) 08/31/16 07:36 pCO2 42.0 mmHg (35.0-45.0) 08/31/16 07:36 pO2 53.0 mmHg (80.0-100.0) L 08/31/16 07:36 HCO3 27.2 mmol/L (20.0-26.0) H 08/31/16 07:36 Base Excess 2.4 mmol/L (-3.0-3.0) 08/31/16 07:36 O2 Saturation 88.0 % (92.0-100.0) L 08/31/16 07:36 Praveen Test YES 08/31/16 07:36 Vent Rate NA 08/31/16 07:36 Inspired O2 21 08/31/16 07:36 Tidal Volume NA 08/31/16 07:36 PEEP NA 08/31/16 07:36 Pressure (ins/psv/peep) NA 08/31/16 07:36 Critical Value SH 08/31/16 07:36 Sodium 140 mEq/L (136-145) 09/19/16 05:21 Potassium 4.3 mEq/L (3.5-5.1) 09/19/16 05:21 Chloride 108 mEq/L (98-107) H 09/19/16 05:21 Carbon Dioxide 29.4 mEq/L (21.0-31.0) 09/19/16 05:21 Anion Gap 6.9 (7.0-16.0) L 09/19/16 05:21 BUN 22 mg/dL (7-25) 09/19/16 05:21 Creatinine 0.6 mg/dL (0.7-1.3) L 09/19/16 05:21 Est GFR ( Amer) TNP 09/19/16 05:21 Est GFR (Non-Af Amer) TNP 09/19/16 05:21 BUN/Creatinine Ratio 36.7 09/19/16 05:21 Glucose 87 mg/dL (70-105) 09/19/16 05:21 POC Glucose 126 MG/DL (70 - 105) H 09/17/16 23:57 Hemoglobin A1c % 5.8 % (4.0-6.0) 09/03/16 09:20 Whole Bld Lactic Acid 1.32 mmol/L (0.60-1.99) 08/31/16 08:20 Calcium 8.9 mg/dL (8.6-10.3) 09/19/16 05:21 Magnesium 2.2 mg/dL (1.9-2.7) 09/06/16 05:55 Total Bilirubin 0.3 mg/dL (0.3-1.0) 09/06/16 05:55 AST 12 U/L (13-39) L 09/06/16 05:55 ALT 53 U/L (7-52) H 09/06/16 05:55 Alkaline Phosphatase 60 U/L (34-104) 09/06/16 05:55 Troponin I 0.02 ng/mL (0.01-0.05) 08/31/16 08:20 B-Natriuretic Peptide 129.0 pg/mL (5.0-100.0) H 09/06/16 05:55 Total Protein 5.4 gm/dL (6.0-8.3) L 09/06/16 05:55 Albumin 2.7 gm/dL (4.2-5.5) L 09/06/16 05:55 Globulin 2.7 gm/dL 09/06/16 05:55 Albumin/Globulin Ratio 1.0 (1.0-1.8) 09/06/16 05:55 TSH 0.39 uIU/ml (0.34-5.60) 08/31/16 08:20 Urine Source CLEAN C 09/03/16 17:00 Urine Color YELLOW 09/03/16 17:00 Urine Clarity CLEAR (CLEAR) 09/03/16 17:00 Urine pH 6.5 09/03/16 17:00 Ur Specific [place] 1.015 (1.005-1.030) 09/03/16 17:00 Urine Protein NEGATIVE mg/dL (NEGATIVE) 09/03/16 17:00 Urine Glucose (UA) NEGATIVE mg/dL (NEGATIVE) 09/03/16 17:00 Urine Ketones NEGATIVE mg/dL (NEGATIVE) 09/03/16 17:00 Urine Blood NEGATIVE (NEGATIVE) 09/03/16 17:00 Urine Nitrate NEGATIVE (NEGATIVE) 09/03/16 17:00 Urine Bilirubin NEGATIVE (NEGATIVE) 09/03/16 17:00 Urine Urobilinogen 0.2 E.U./dL (0.2 - 1.0) 09/03/16 17:00 Ur Leukocyte Esterase NEGATIVE (NEGATIVE) 09/03/16 17:00 Urine RBC NONE SEEN /hpf (0-5) 09/03/16 17:00 Urine WBC NONE SEEN /hpf (0-5) 09/03/16 17:00 Ur Epithelial Cells NONE SEEN /lpf (FEW) 09/03/16 17:00 Urine Bacteria NONE SEEN /hpf (NONE SEEN) 09/03/16 17:00 Vancomycin Trough 17.3 ug/mL (10-20) 09/06/16 09:00 RPR NONREACTIVE (NONREACTIVE) 08/31/16 08:20 - Physical Exam Vitals and I&O: Vital Signs Temp 96.4 F 09/19/16 12:00 Pulse 69 09/19/16 15:51 Resp 20 09/19/16 15:51 BP 122/63 09/19/16 12:00 Pulse Ox 98 09/19/16 15:51 Intake & Output 09/18/16 09/19/16 09/19/16 18:59 06:59 18:59 Intake Total 200 120 Output Total 1100 Balance 200 -980 Intake: Intake, IV Amount 200 Fluconazole 200mg/100mL 100 200 mg In 100 ml @ 100 mls/hr IV Q24HR [facility] Rx#: [id number] cefTRIAXone 2 gm In 100 Sodium Chloride 0.9% 100 ml @ 100 mls/hr IV Q24H [facility] Rx#:[id number] Oral 120 Output: Urine 1100 Other: # Bowel Movements 0 Active Medications: Current Medications Acetaminophen (Tylenol) 650 mg PO Q4HR PRN PRN Reason: Pain or Fever >101 Stop: 10/30/16 09:31 Acetylcysteine (Mucomyst 20%) 2 ml HHN Q6HRT [facility] Stop: 10/30/16 18:59 Last Admin: 09/19/16 12:21 Dose: 2 ml Albuterol Sulfate (Albuterol 2.5mg/3ml Neb Ud) 2.5 mg HHN QIDRT [facility] Stop: 10/30/16 12:59 Last Admin: 09/19/16 15:50 Dose: 2.5 mg Amiodarone HCl (Cordarone) 200 mg PO DAILY [facility] Stop: 10/31/16 08:59 Last Admin: 09/19/16 08:31 Dose: 200 mg Aspirin (Aspirin Chewable) 81 mg PO DAILY [facility] Stop: 10/31/16 08:59 Last Admin: 09/19/16 08:31 Dose: 81 mg Atorvastatin Calcium (Lipitor) 10 mg PO [facility] PRN Reason: Protocol Stop: 10/30/16 20:59 Last Admin: 09/18/16 21:05 Dose: 10 mg Bisacodyl (Dulcolax 10 Mg Supp) 10 mg RC Q72H PRN PRN Reason: Constipation Stop: 10/30/16 09:31 Budesonide (Pulmicort) 0.5 mg N Q12HRT [facility] Stop: 10/30/16 09:44 Last Admin: 09/19/16 08:01 Dose: 0.5 mg Buspirone HCl (Buspar) 10 mg PO TID [facility] Stop: 10/30/16 13:59 Last Admin: 09/19/16 13:37 Dose: 10 mg Donepezil HCl (Aricept) 10 mg PO [facility] Stop: 10/30/16 20:59 Last Admin: 09/18/16 21:05 Dose: 10 mg Guaifenesin (Mucinex) 600 mg PO Q12HR PRN PRN Reason: Cough or Congestion Stop: 11/04/16 23:19 Fluconazole (Diflucan) 200 mg in 100 mls @ 100 mls/hr IV Q24HR [facility] Stop: 11/07/16 14:14 Last Admin: 09/19/16 13:37 Dose: 100 mls/hr Ipratropium [place] (Atrovent Neb 0.5mg/2.5ml) 0.5 mg N Q6HRT [facility] Stop: 11/02/16 00:59 Last Admin: 09/19/16 12:22 Dose: 0.5 mg Magnesium Hydroxide (Milk Of Magnesia) 30 ml PO HS PRN PRN Reason: Constipation Stop: 10/30/16 09:31 Magnesium Hydroxide (Milk Of Magnesia) 30 ml PO DAILY PRN PRN Reason: Constipation Stop: 11/13/16 12:41 Montelukast Sodium (Singulair) 10 mg PO HS [facility] Stop: 10/30/16 20:59 Last Admin: 09/18/16 21:05 Dose: 10 mg Olanzapine (Zyprexa) 15 mg PO DAILY [facility] PRN Reason: Protocol Stop: 10/31/16 08:59 Last Admin: 09/19/16 08:31 Dose: 15 mg Ondansetron HCl (Zofran) 4 mg IV Q8H PRN PRN Reason: Nausea / Vomiting Stop: 10/30/16 09:34 Sodium Phosphate (Fleet Enema) 135 ml RC PRN PRN PRN Reason: Constipation Stop: 10/30/16 09:31 Tamsulosin HCl (Flomax) 0.4 mg PO HS [facility] Stop: 10/30/16 20:59 Last Admin: 09/18/16 21:05 Dose: 0.4 mg General: congested HEENT: NC/AT, PERRLA Neck: Supple, No JVD Lungs: congested Cardiovascular: RRR, Normal S1, Normal S2 Abdomen: soft non-tender, globular Extremities: excoriation, contracture Neurological: no change - Procedures Procedures: Procedures Procedure Code Date ASSISTANCE WITH RESPIRATORY VENTILATION, <24 HRS, CPAP [id number] 06/29/16 EXCISION OF DUODENUM, ENDO, DIAGN [id number] 07/18/16 EXCISION OF ESOPHAGUS, ENDO, DIAGN [id number] 07/18/16 EXCISION OF STOMACH, ENDO, DIAGN [id number] 07/18/16 POS AIRWAY PRESSURE CPAP 20227 06/29/16 Internal Medicine Assmt/Plan - Assessment Assessment: Pneumonia better acute Copd exacerbation acute Respiratory Failure htn dyslipidemia dementia debility, functional quad leukocytosis - Plan Plan: cont on o2 will decrease iv steroid ct chest noted will confer w pulm dw rn Nutritional Asmnt/Malnutr-PDOC - Dietary Evaluation Malnutrition Findings (Please click <Entered> for more info): Nutritional Asmnt/Malnutrition Start: 09/02/16 14: 33 Text: Status: Complete Freq: Document 09/02/16 14:34 GSUN (Rec: 09/02/16 14:52 GSUN [email or web address]) Nutritional Asmnt/Malnutrition Patient General Information Nutritional Screening High Risk Screening Diagnosis Pneumonia, acute respiratory failure, COPD exacerbation Pertinent Medical Hx/Surgical Hx HTN, CAD, asthma, COPD, dyslipidemia, PUD, GERD, dementia Subjective Information 75yo M from SNF. Pt was alert, appeared anxious during visit . Pt was admitted here once in past July and twice in past June. Pt was ordered pureed + nectar thick during previous two stays. Most recent swallow eval 06/26/16 ST recommended mech soft + nectar thick. Discussed with pt regarding diet texture and tolerance, pt denied difficulties chewing/ swallowing and expressed preference for current mech soft ground. Encouraged pt to inform RN if any diet texture intolerance noted, pt understood. PO intake 100% all 3 meals yesterday 09/01. Unable to lower pt's head for bedscale due to pt appeared anxious. Current Diet Order/ Nutrition Support Mech soft ground + nectar thick Pertinent Medications Dulcolax, D5, MOM, Solu-Medrol , Vancomycin, Zofran, Fleet Enema Pertinent Labs Reviewed. Glucose 105, 143, 145 Nutritional Hx/Data Height 1.73 m Height (Calculated Centimeters) 172.7 Current Weight (lbs) 73.482 kg Weight (Calculated Kilograms) 73.5 Weight (Calculated Grams) 11444.0 Usual body Weight (lbs) 161 [place] Body Weight 154lb ([place]) Recent Weight Change No Weight Status Approriate GI Symptoms Food Allergies No Cultural/Ethnic/Mu-Ism Belief Unknown. Usual diet at home Unknown. Skin Integrity/Comment: Ruddy 11. Skin intact. Current %PO Good (75-100%) Estimated Nutritional Goals BEE in Kcals: Using Current wt Calories/Kcals/Kg 30-35kcal/kg Kcals Calculated 2205-2573kcal Protein: Using Current wt Protein g/k.2-1.4g/kg Protein Calculated 88-103g/kg Fluid: ml 2205-2573ml (1ml/kcal) Nutritional Problem 1. Problem Problem Increased kcal and prot needs related to Etiology hypermetabolic stated aeb Signs/Symptoms: pneumonia, COPD exacerbation, acute respiratory failure Intervention/Recommendation Comments 1. Continue with [facility] soft ground + necatar thick diet ( refer to subjective information in nutrition assessment). Continue to monitor and supervise during meal time. Expected Outcomes/Goals Expected Outcomes/Goals 1. PO intake to meet at least 75% of estimated nutritional needs. Physician Parameters for PEM Serum Albumin (g/dl) 3.5 - 5.0 (Normal)
[2016-09-19] MEDS: Atorvastatin Calcium 10 MG TAB PO SCH (20:44)
[2016-09-20] MEDS: Ipratropium Neb 0.5 mg/2.5 mL UD HHN SCH ×3 (01:37→18:57)
[2016-09-20] MEDS: Albuterol Nebulizer 2.5mg/3mL HHN SCH ×4 (07:11→18:57)
[2016-09-20] MEDS: Budesonide 0.5 Mg/2 mL Ud HHN SCH ×2 (07:12→18:57)
[2016-09-20] MEDS: Aspirin 81mg Chewable Tab PO SCH (08:55)
--- NOTE | 2016-09-20 13:54 | Internal Medicine Prog Note ---
Internal Medicine Subjective - Subjective Service Date: 09/20/16 Patient seen and examined:: with staff Patient is:: awake Per staff patient is:: no adverse event Internal Medicine Objective - Results Result Diagrams: 09/19/16 05:21 09/19/16 05:21 Recent Labs: Laboratory Last Values WBC 10.8 Th/cmm (4.8-10.8) 09/19/16 05:21 RBC 3.98 Mil/cmm (3.80-5.80) 09/19/16 05:21 Hgb 11.7 gm/dL (12.6-17.4) L 09/19/16 05:21 Hct 34.8 % (39.0-49.0) L 09/19/16 05:21 MCV 87.5 fl (80-99) 09/19/16 05:21 MCH 29.5 pg (27.0-31.0) 09/19/16 05:21 MCHC Differential 33.7 pg (28.0-36.0) 09/19/16 05:21 RDW 15.5 % (11.5-20.0) 09/19/16 05:21 Plt Count 155 Th/cmm (150-400) 09/19/16 05:21 MPV 7.7 fl 09/19/16 05:21 Neutrophils % 79.2 % (40.0-80.0) 09/19/16 05:21 Band Neutrophils % 1 % (0-10) 09/15/16 05:40 Lymphocytes % 14.6 % (20.0-50.0) L 09/19/16 05:21 Monocytes % 4.1 % (2.0-10.0) 09/19/16 05:21 Eosinophils % 2.0 % (0.0-5.0) 09/19/16 05:21 Basophils % 0.1 % (0.0-2.0) 09/19/16 05:21 Neutrophils (Manual) 86 % (40-80) H 09/15/16 05:40 Lymphocytes 9 % (20-50) L 09/15/16 05:40 Monocytes 4 % (2-10) 09/15/16 05:40 Eosinophils 1 % (0-5) 09/09/16 07:39 Basophils 1 % (0-3) 09/09/16 07:39 Platelet Estimate ADEQUATE (NORMAL) 09/15/16 05:40 Platelet Morphology NORMAL (NORMAL) 09/15/16 05:40 Poikilocytosis 1+ 09/08/16 06:41 Anisocytosis 1+ 09/13/16 06:22 Ovalocytes 1+ 09/08/16 06:41 RBC Morph Micro Appear NORMAL (NORMAL) 09/15/16 05:40 PT 9.8 SECONDS (9.5-11.5) 08/31/16 08:20 INR 0.99 (0.5-1.4) 08/31/16 08:20 Specimen Source Arterial 08/31/16 07:36 Sample Site Right Radial 08/31/16 07:36 pH 7.42 (7.35-7.45) 08/31/16 07:36 pCO2 42.0 mmHg (35.0-45.0) 08/31/16 07:36 pO2 53.0 mmHg (80.0-100.0) L 08/31/16 07:36 HCO3 27.2 mmol/L (20.0-26.0) H 08/31/16 07:36 Base Excess 2.4 mmol/L (-3.0-3.0) 08/31/16 07:36 O2 Saturation 88.0 % (92.0-100.0) L 08/31/16 07:36 Praveen Test YES 08/31/16 07:36 Vent Rate NA 08/31/16 07:36 Inspired O2 21 08/31/16 07:36 Tidal Volume NA 08/31/16 07:36 PEEP NA 08/31/16 07:36 Pressure (ins/psv/peep) NA 08/31/16 07:36 Critical Value SH 08/31/16 07:36 Sodium 140 mEq/L (136-145) 09/19/16 05:21 Potassium 4.3 mEq/L (3.5-5.1) 09/19/16 05:21 Chloride 108 mEq/L (98-107) H 09/19/16 05:21 Carbon Dioxide 29.4 mEq/L (21.0-31.0) 09/19/16 05:21 Anion Gap 6.9 (7.0-16.0) L 09/19/16 05:21 BUN 22 mg/dL (7-25) 09/19/16 05:21 Creatinine 0.6 mg/dL (0.7-1.3) L 09/19/16 05:21 Est GFR ( Amer) TNP 09/19/16 05:21 Est GFR (Non-Af Amer) TNP 09/19/16 05:21 BUN/Creatinine Ratio 36.7 09/19/16 05:21 Glucose 87 mg/dL (70-105) 09/19/16 05:21 POC Glucose 126 MG/DL (70 - 105) H 09/17/16 23:57 Hemoglobin A1c % 5.8 % (4.0-6.0) 09/03/16 09:20 Whole Bld Lactic Acid 1.32 mmol/L (0.60-1.99) 08/31/16 08:20 Calcium 8.9 mg/dL (8.6-10.3) 09/19/16 05:21 Magnesium 2.2 mg/dL (1.9-2.7) 09/06/16 05:55 Total Bilirubin 0.3 mg/dL (0.3-1.0) 09/06/16 05:55 AST 12 U/L (13-39) L 09/06/16 05:55 ALT 53 U/L (7-52) H 09/06/16 05:55 Alkaline Phosphatase 60 U/L (34-104) 09/06/16 05:55 Troponin I 0.02 ng/mL (0.01-0.05) 08/31/16 08:20 B-Natriuretic Peptide 129.0 pg/mL (5.0-100.0) H 09/06/16 05:55 Total Protein 5.4 gm/dL (6.0-8.3) L 09/06/16 05:55 Albumin 2.7 gm/dL (4.2-5.5) L 09/06/16 05:55 Globulin 2.7 gm/dL 09/06/16 05:55 Albumin/Globulin Ratio 1.0 (1.0-1.8) 09/06/16 05:55 TSH 0.39 uIU/ml (0.34-5.60) 08/31/16 08:20 Urine Source CLEAN C 09/03/16 17:00 Urine Color YELLOW 09/03/16 17:00 Urine Clarity CLEAR (CLEAR) 09/03/16 17:00 Urine pH 6.5 09/03/16 17:00 Ur Specific [place] 1.015 (1.005-1.030) 09/03/16 17:00 Urine Protein NEGATIVE mg/dL (NEGATIVE) 09/03/16 17:00 Urine Glucose (UA) NEGATIVE mg/dL (NEGATIVE) 09/03/16 17:00 Urine Ketones NEGATIVE mg/dL (NEGATIVE) 09/03/16 17:00 Urine Blood NEGATIVE (NEGATIVE) 09/03/16 17:00 Urine Nitrate NEGATIVE (NEGATIVE) 09/03/16 17:00 Urine Bilirubin NEGATIVE (NEGATIVE) 09/03/16 17:00 Urine Urobilinogen 0.2 E.U./dL (0.2 - 1.0) 09/03/16 17:00 Ur Leukocyte Esterase NEGATIVE (NEGATIVE) 09/03/16 17:00 Urine RBC NONE SEEN /hpf (0-5) 09/03/16 17:00 Urine WBC NONE SEEN /hpf (0-5) 09/03/16 17:00 Ur Epithelial Cells NONE SEEN /lpf (FEW) 09/03/16 17:00 Urine Bacteria NONE SEEN /hpf (NONE SEEN) 09/03/16 17:00 Vancomycin Trough 17.3 ug/mL (10-20) 09/06/16 09:00 RPR NONREACTIVE (NONREACTIVE) 08/31/16 08:20 - Physical Exam Vitals and I&O: Vital Signs Temp 96.8 F 09/20/16 08:00 Pulse 66 09/20/16 10:55 Resp 18 09/20/16 10:55 BP 122/62 09/20/16 08:00 Pulse Ox 98 09/20/16 10:55 Intake & Output 09/19/16 09/20/16 09/20/16 18:59 06:59 18:59 Intake Total 600 Output Total 800 Balance -200 Intake: Oral 600 Output: Urine 800 Active Medications: Current Medications Acetaminophen (Tylenol) 650 mg PO Q4HR PRN PRN Reason: Pain or Fever >101 Stop: 10/30/16 09:31 Acetylcysteine (Mucomyst 20%) 2 ml HHN Q6HRT [facility] Stop: 10/30/16 18:59 Last Admin: 09/20/16 07:12 Dose: 2 ml Albuterol Sulfate (Albuterol 2.5mg/3ml Neb Ud) 2.5 mg HHN QIDRT [facility] Stop: 10/30/16 12:59 Last Admin: 09/20/16 10:50 Dose: 2.5 mg Amiodarone HCl (Cordarone) 200 mg PO DAILY [facility] Stop: 10/31/16 08:59 Last Admin: 09/20/16 08:56 Dose: 200 mg Aspirin (Aspirin Chewable) 81 mg PO DAILY [facility] Stop: 10/31/16 08:59 Last Admin: 09/20/16 08:55 Dose: 81 mg Atorvastatin Calcium (Lipitor) 10 mg PO HS [facility] PRN Reason: Protocol Stop: 10/30/16 20:59 Last Admin: 09/19/16 20:44 Dose: 10 mg Bisacodyl (Dulcolax 10 Mg Supp) 10 mg RC Q72H PRN PRN Reason: Constipation Stop: 10/30/16 09:31 Budesonide (Pulmicort) 0.5 mg HHN Q12HRT [facility] Stop: 10/30/16 09:44 Last Admin: 09/20/16 07:12 Dose: 0.5 mg Buspirone HCl (Buspar) 10 mg PO TID [facility] Stop: 10/30/16 13:59 Last Admin: 09/20/16 13:31 Dose: 10 mg Donepezil HCl (Aricept) 10 mg PO HS [facility] Stop: 10/30/16 20:59 Last Admin: 09/19/16 20:43 Dose: 10 mg Guaifenesin (Mucinex) 600 mg PO Q12HR PRN PRN Reason: Cough or Congestion Stop: 11/04/16 23:19 Fluconazole (Diflucan) 200 mg in 100 mls @ 100 mls/hr IV Q24HR [facility] Stop: 11/07/16 14:14 Last Admin: 09/19/16 13:37 Dose: 100 mls/hr Ipratropium [place] (Atrovent Neb 0.5mg/2.5ml) 0.5 mg HHN Q6HRT [facility] Stop: 11/02/16 00:59 Last Admin: 09/20/16 01:37 Dose: 0.5 mg Magnesium Hydroxide (Milk Of Magnesia) 30 ml PO HS PRN PRN Reason: Constipation Stop: 10/30/16 09:31 Magnesium Hydroxide (Milk Of Magnesia) 30 ml PO DAILY PRN PRN Reason: Constipation Stop: 11/13/16 12:41 Montelukast Sodium (Singulair) 10 mg PO HS [facility] Stop: 10/30/16 20:59 Last Admin: 09/19/16 20:43 Dose: 10 mg Olanzapine (Zyprexa) 15 mg PO DAILY [facility] PRN Reason: Protocol Stop: 10/31/16 08:59 Last Admin: 09/20/16 08:55 Dose: 15 mg Ondansetron HCl (Zofran) 4 mg IV Q8H PRN PRN Reason: Nausea / Vomiting Stop: 10/30/16 09:34 Sodium Phosphate (Fleet Enema) 135 ml RC PRN PRN PRN Reason: Constipation Stop: 10/30/16 09:31 Tamsulosin HCl (Flomax) 0.4 mg PO HS [facility] Stop: 10/30/16 20:59 Last Admin: 09/19/16 20:43 Dose: 0.4 mg General: alert HEENT: NC/AT, PERRLA Neck: Supple Lungs: CTAB Cardiovascular: RRR, Normal S1, Normal S2, without murmur Abdomen: soft non-tender, non-distended Neurological: no change - Procedures Procedures: Procedures Procedure Code Date ASSISTANCE WITH RESPIRATORY VENTILATION, <24 HRS, CPAP 9O04784 06/29/16 EXCISION OF DUODENUM, ENDO, DIAGN [id number] 07/18/16 EXCISION OF ESOPHAGUS, ENDO, DIAGN [id number] 07/18/16 EXCISION OF STOMACH, ENDO, DIAGN [id number] 07/18/16 POS AIRWAY PRESSURE CPAP [id number] 06/29/16 Internal Medicine Assmt/Plan - Assessment Assessment: Pneumonia Copd exacerbation Respiratory Failure htn dyslipidemia dementia - Plan Plan: snf placement bronchodilators continue ivabx supplemental o2 cpm Nutritional Asmnt/Malnutr-PDOC - Dietary Evaluation Malnutrition Findings (Please click <Entered> for more info): Nutritional Asmnt/Malnutrition Start: 09/02/16 14: 33 Text: Status: Complete Freq: Document 09/02/16 14:34 GSUN (Rec: 09/02/16 14:52 GSUN [email or web address]) Nutritional Asmnt/Malnutrition Patient General Information Nutritional Screening High Risk Screening Diagnosis Pneumonia, acute respiratory failure, COPD exacerbation Pertinent Medical Hx/Surgical Hx HTN, CAD, asthma, COPD, dyslipidemia, PUD, GERD, dementia Subjective Information 75yo M from SNF. Pt was alert, appeared anxious during visit . Pt was admitted here once in past July and twice in past June. Pt was ordered pureed + nectar thick during previous two stays. Most recent swallow eval 06/26/ ST recommended mech soft + nectar thick. Discussed with pt regarding diet texture and tolerance, pt denied difficulties chewing/ swallowing and expressed preference for current mech soft ground. Encouraged pt to inform RN if any diet texture intolerance noted, pt understood. PO intake 100% all 3 meals yesterday 09/01. Unable to lower pt's head for bedscale due to pt appeared anxious. Current Diet Order/ Nutrition Support Mech soft ground + nectar thick Pertinent Medications Dulcolax, D5, MOM, Solu-Medrol , Vancomycin, Zofran, Fleet Enema Pertinent Labs Reviewed. Glucose 105, 143, 145 Nutritional Hx/Data Height 5 ft 8 in Height (Calculated Centimeters) 172.7 Current Weight (lbs) 162 lb Weight (Calculated Kilograms) 73.5 Weight (Calculated Grams) 67710.0 Usual body Weight (lbs) 161 [place] Body Weight 154lb ([place]) Recent Weight Change No Weight Status Approriate GI Symptoms Food Allergies No Cultural/Ethnic/Jain Belief Unknown. Usual diet at home Unknown. Skin Integrity/Comment: Ruddy 11. Skin intact. Current %PO Good (75-100%) Estimated Nutritional Goals BEE in Kcals: Using Current wt Calories/Kcals/Kg 30-35kcal/kg Kcals Calculated 2205-2573kcal Protein: Using Current wt Protein g/k.2-1.4g/kg Protein Calculated 88-103g/kg Fluid: ml 2205-2573ml (1ml/kcal) Nutritional Problem 1. Problem Problem Increased kcal and prot needs related to Etiology hypermetabolic stated aeb Signs/Symptoms: pneumonia, COPD exacerbation, acute respiratory failure Intervention/Recommendation Comments 1. Continue with mech soft ground + necatar thick diet ( refer to subjective information in nutrition assessment). Continue to monitor and supervise during meal time. Expected Outcomes/Goals Expected Outcomes/Goals 1. PO intake to meet at least 75% of estimated nutritional needs. Physician Parameters for PEM Serum Albumin (g/dl) 3.5 - 5.0 (Normal)
[2016-09-20] MEDS: Fluconazole 200mg/100mL 200 MG/100 ML BAG IV SCH (17:27)
[2016-09-20] MEDS: Atorvastatin Calcium 10 MG TAB PO SCH (20:31)
[2016-09-21] MEDS: Ipratropium Neb 0.5 mg/2.5 mL UD HHN SCH ×4 (00:36→18:55)
[2016-09-21] MEDS: Albuterol Nebulizer 2.5mg/3mL HHN SCH ×4 (07:02→18:54)
[2016-09-21] MEDS: Budesonide 0.5 Mg/2 mL Ud HHN SCH ×2 (07:04→18:54)
[2016-09-21] MEDS: Aspirin 81mg Chewable Tab PO SCH (08:18)
--- NOTE | 2016-09-21 12:23 | Internal Medicine Prog Note ---
Internal Medicine Subjective - Subjective Patient seen and examined:: with staff, chart reviewed Patient is:: asleep, interactive Patient Complaints of:: congestion Per staff patient is:: no adverse event, no episodes of fall, confused Internal Medicine Objective - Results Result Diagrams: 09/19/16 05:21 09/19/16 05:21 Recent Labs: Laboratory Last Values WBC 10.8 Th/cmm (4.8-10.8) 09/19/16 05:21 RBC 3.98 Mil/cmm (3.80-5.80) 09/19/16 05:21 Hgb 11.7 gm/dL (12.6-17.4) L 09/19/16 05:21 Hct 34.8 % (39.0-49.0) L 09/19/16 05:21 MCV 87.5 fl (80-99) 09/19/16 05:21 MCH 29.5 pg (27.0-31.0) 09/19/16 05:21 MCHC Differential 33.7 pg (28.0-36.0) 09/19/16 05:21 RDW 15.5 % (11.5-20.0) 09/19/16 05:21 Plt Count 155 Th/cmm (150-400) 09/19/16 05:21 MPV 7.7 fl 09/19/16 05:21 Neutrophils % 79.2 % (40.0-80.0) 09/19/16 05:21 Band Neutrophils % 1 % (0-10) 09/15/16 05:40 Lymphocytes % 14.6 % (20.0-50.0) L 09/19/16 05:21 Monocytes % 4.1 % (2.0-10.0) 09/19/16 05:21 Eosinophils % 2.0 % (0.0-5.0) 09/19/16 05:21 Basophils % 0.1 % (0.0-2.0) 09/19/16 05:21 Neutrophils (Manual) 86 % (40-80) H 09/15/16 05:40 Lymphocytes 9 % (20-50) L 09/15/16 05:40 Monocytes 4 % (2-10) 09/15/16 05:40 Eosinophils 1 % (0-5) 09/09/16 07:39 Basophils 1 % (0-3) 09/09/16 07:39 Platelet Estimate ADEQUATE (NORMAL) 09/15/16 05:40 Platelet Morphology NORMAL (NORMAL) 09/15/16 05:40 Poikilocytosis 1+ 09/08/16 06:41 Anisocytosis 1+ 09/13/16 06:22 Ovalocytes 1+ 09/08/16 06:41 RBC Morph Micro Appear NORMAL (NORMAL) 09/15/16 05:40 PT 9.8 SECONDS (9.5-11.5) 08/31/16 08:20 INR 0.99 (0.5-1.4) 08/31/16 08:20 Specimen Source Arterial 08/31/16 07:36 Sample Site Right Radial 08/31/16 07:36 pH 7.42 (7.35-7.45) 08/31/16 07:36 pCO2 42.0 mmHg (35.0-45.0) 08/31/16 07:36 pO2 53.0 mmHg (80.0-100.0) L 08/31/16 07:36 HCO3 27.2 mmol/L (20.0-26.0) H 08/31/16 07:36 Base Excess 2.4 mmol/L (-3.0-3.0) 08/31/16 07:36 O2 Saturation 88.0 % (92.0-100.0) L 08/31/16 07:36 Praveen Test YES 08/31/16 07:36 Vent Rate NA 08/31/16 07:36 Inspired O2 21 08/31/16 07:36 Tidal Volume NA 08/31/16 07:36 PEEP NA 08/31/16 07:36 Pressure (ins/psv/peep) NA 08/31/16 07:36 Critical Value SH 08/31/16 07:36 Sodium 140 mEq/L (136-145) 09/19/16 05:21 Potassium 4.3 mEq/L (3.5-5.1) 09/19/16 05:21 Chloride 108 mEq/L (98-107) H 09/19/16 05:21 Carbon Dioxide 29.4 mEq/L (21.0-31.0) 09/19/16 05:21 Anion Gap 6.9 (7.0-16.0) L 09/19/16 05:21 BUN 22 mg/dL (7-25) 09/19/16 05:21 Creatinine 0.6 mg/dL (0.7-1.3) L 09/19/16 05:21 Est GFR ( Amer) TNP 09/19/16 05:21 Est GFR (Non-Af Amer) TNP 09/19/16 05:21 BUN/Creatinine Ratio 36.7 09/19/16 05:21 Glucose 87 mg/dL (70-105) 09/19/16 05:21 POC Glucose 126 MG/DL (70 - 105) H 09/17/16 23:57 Hemoglobin A1c % 5.8 % (4.0-6.0) 09/03/16 09:20 Whole Bld Lactic Acid 1.32 mmol/L (0.60-1.99) 08/31/16 08:20 Calcium 8.9 mg/dL (8.6-10.3) 09/19/16 05:21 Magnesium 2.2 mg/dL (1.9-2.7) 09/06/16 05:55 Total Bilirubin 0.3 mg/dL (0.3-1.0) 09/06/16 05:55 AST 12 U/L (13-39) L 09/06/16 05:55 ALT 53 U/L (7-52) H 09/06/16 05:55 Alkaline Phosphatase 60 U/L (34-104) 09/06/16 05:55 Troponin I 0.02 ng/mL (0.01-0.05) 08/31/16 08:20 B-Natriuretic Peptide 129.0 pg/mL (5.0-100.0) H 09/06/16 05:55 Total Protein 5.4 gm/dL (6.0-8.3) L 09/06/16 05:55 Albumin 2.7 gm/dL (4.2-5.5) L 09/06/16 05:55 Globulin 2.7 gm/dL 09/06/16 05:55 Albumin/Globulin Ratio 1.0 (1.0-1.8) 09/06/16 05:55 TSH 0.39 uIU/ml (0.34-5.60) 08/31/16 08:20 Urine Source CLEAN C 09/03/16 17:00 Urine Color YELLOW 09/03/16 17:00 Urine Clarity CLEAR (CLEAR) 09/03/16 17:00 Urine pH 6.5 09/03/16 17:00 Ur Specific [place] 1.015 (1.005-1.030) 09/03/16 17:00 Urine Protein NEGATIVE mg/dL (NEGATIVE) 09/03/16 17:00 Urine Glucose (UA) NEGATIVE mg/dL (NEGATIVE) 09/03/16 17:00 Urine Ketones NEGATIVE mg/dL (NEGATIVE) 09/03/16 17:00 Urine Blood NEGATIVE (NEGATIVE) 09/03/16 17:00 Urine Nitrate NEGATIVE (NEGATIVE) 09/03/16 17:00 Urine Bilirubin NEGATIVE (NEGATIVE) 09/03/16 17:00 Urine Urobilinogen 0.2 E.U./dL (0.2 - 1.0) 09/03/16 17:00 Ur Leukocyte Esterase NEGATIVE (NEGATIVE) 09/03/16 17:00 Urine RBC NONE SEEN /hpf (0-5) 09/03/16 17:00 Urine WBC NONE SEEN /hpf (0-5) 09/03/16 17:00 Ur Epithelial Cells NONE SEEN /lpf (FEW) 09/03/16 17:00 Urine Bacteria NONE SEEN /hpf (NONE SEEN) 09/03/16 17:00 Vancomycin Trough 17.3 ug/mL (10-20) 09/06/16 09:00 RPR NONREACTIVE (NONREACTIVE) 08/31/16 08:20 - Physical Exam Vitals and I&O: Vital Signs Temp 96.3 F 09/21/16 08:00 Pulse 70 09/21/16 11:31 Resp 18 09/21/16 11:31 BP 126/77 09/21/16 08:00 Pulse Ox 98 09/21/16 11:31 Intake & Output 09/20/16 09/21/16 09/21/16 18:59 06:59 18:59 Intake Total 800 100 Balance 800 100 Intake: Oral 800 100 Other: # Voids 3 3 # Bowel Movements 1 Active Medications: Current Medications Acetaminophen (Tylenol) 650 mg PO Q4HR PRN PRN Reason: Pain or Fever >101 Stop: 10/30/16 09:31 Acetylcysteine (Mucomyst 20%) 2 ml HHN Q6HRT [facility] Stop: 10/30/16 18:59 Last Admin: 09/21/16 07:02 Dose: 2 ml Albuterol Sulfate (Albuterol 2.5mg/3ml Neb Ud) 2.5 mg HHN QIDRT [facility] Stop: 10/30/16 12:59 Last Admin: 09/21/16 11:31 Dose: 2.5 mg Amiodarone HCl (Cordarone) 200 mg PO DAILY [facility] Stop: 10/31/16 08:59 Last Admin: 09/21/16 08:19 Dose: 200 mg Aspirin (Aspirin Chewable) 81 mg PO DAILY [facility] Stop: 10/31/16 08:59 Last Admin: 09/21/16 08:18 Dose: 81 mg Atorvastatin Calcium (Lipitor) 10 mg PO HS [facility] PRN Reason: Protocol Stop: 10/30/16 20:59 Last Admin: 09/20/16 20:31 Dose: 10 mg Bisacodyl (Dulcolax 10 Mg Supp) 10 mg RC Q72H PRN PRN Reason: Constipation Stop: 10/30/16 09:31 Budesonide (Pulmicort) 0.5 mg HHN Q12HRT [facility] Stop: 10/30/16 09:44 Last Admin: 09/21/16 07:04 Dose: 0.5 mg Buspirone HCl (Buspar) 10 mg PO TID [facility] Stop: 10/30/16 13:59 Last Admin: 09/21/16 08:18 Dose: 10 mg Donepezil HCl (Aricept) 10 mg PO HS [facility] Stop: 10/30/16 20:59 Last Admin: 09/20/16 20:31 Dose: 10 mg Guaifenesin (Mucinex) 600 mg PO Q12HR PRN PRN Reason: Cough or Congestion Stop: 11/04/16 23:19 Fluconazole (Diflucan) 200 mg in 100 mls @ 100 mls/hr IV Q24HR [facility] Stop: 11/07/16 14:14 Last Admin: 09/20/16 17:27 Dose: 100 mls/hr Ipratropium [place] (Atrovent Neb 0.5mg/2.5ml) 0.5 mg HHN Q6HRT [facility] Stop: 11/02/16 00:59 Last Admin: 09/21/16 07:02 Dose: 0.5 mg Magnesium Hydroxide (Milk Of Magnesia) 30 ml PO HS PRN PRN Reason: Constipation Stop: 10/30/16 09:31 Magnesium Hydroxide (Milk Of Magnesia) 30 ml PO DAILY PRN PRN Reason: Constipation Stop: 11/13/16 12:41 Montelukast Sodium (Singulair) 10 mg PO HS [facility] Stop: 10/30/16 20:59 Last Admin: 09/20/16 20:31 Dose: 10 mg Olanzapine (Zyprexa) 15 mg PO DAILY [facility] PRN Reason: Protocol Stop: 10/31/16 08:59 Last Admin: 09/21/16 08:18 Dose: 15 mg Ondansetron HCl (Zofran) 4 mg IV Q8H PRN PRN Reason: Nausea / Vomiting Stop: 10/30/16 09:34 Sodium Phosphate (Fleet Enema) 135 ml RC PRN PRN PRN Reason: Constipation Stop: 10/30/16 09:31 Tamsulosin HCl (Flomax) 0.4 mg PO HS [facility] Stop: 10/30/16 20:59 Last Admin: 09/20/16 20:31 Dose: 0.4 mg General: congested HEENT: NC/AT, PERRLA Neck: Supple, No JVD Lungs: congested, rales Cardiovascular: RRR, Normal S1, Normal S2 Abdomen: soft non-tender, globular Extremities: excoriation, contracture Neurological: no change - Procedures Procedures: Procedures Procedure Code Date ASSISTANCE WITH RESPIRATORY VENTILATION, <24 HRS, CPAP [id number] 06/29/16 EXCISION OF DUODENUM, ENDO, DIAGN [id number] 07/18/16 EXCISION OF ESOPHAGUS, ENDO, DIAGN [id number] 07/18/16 EXCISION OF STOMACH, ENDO, DIAGN [id number] 07/18/16 POS AIRWAY PRESSURE CPAP [id number] 06/29/16 Internal Medicine Assmt/Plan - Assessment Assessment: Pneumonia better acute Copd exacerbation acute Respiratory Failure htn dyslipidemia dementia debility, functional quad leukocytosis - Plan Plan: cont on o2 will decrease iv steroid ct chest noted will confer w pulm sudhakar rn Nutritional Asmnt/Malnutr-PDOC - Dietary Evaluation Malnutrition Findings (Please click <Entered> for more info): Nutritional Asmnt/Malnutrition Start: 09/02/16 14: 33 Text: Status: Complete Freq: Document 09/02/16 14:34 GSUN (Rec: 09/02/16 14:52 GSUN [email or web address]) Nutritional Asmnt/Malnutrition Patient General Information Nutritional Screening High Risk Screening Diagnosis Pneumonia, acute respiratory failure, COPD exacerbation Pertinent Medical Hx/Surgical Hx HTN, CAD, asthma, COPD, dyslipidemia, PUD, GERD, dementia Subjective Information 75yo M from SNF. Pt was alert, appeared anxious during visit . Pt was admitted here once in past July and twice in past June. Pt was ordered pureed + nectar thick during previous two stays. Most recent swallow eval 06/26/16 ST recommended mech soft + nectar thick. Discussed with pt regarding diet texture and tolerance, pt denied difficulties chewing/ swallowing and expressed preference for current mech soft ground. Encouraged pt to inform RN if any diet texture intolerance noted, pt understood. PO intake 100% all 3 meals yesterday 09/01. Unable to lower pt's head for bedscale due to pt appeared anxious. Current Diet Order/ Nutrition Support Mech soft ground + nectar thick Pertinent Medications Dulcolax, D5, MOM, Solu-Medrol , Vancomycin, Zofran, Fleet Enema Pertinent Labs Reviewed. Glucose 105, 143, 145 Nutritional Hx/Data Height 1.73 m Height (Calculated Centimeters) 172.7 Current Weight (lbs) 73.482 kg Weight (Calculated Kilograms) 73.5 Weight (Calculated Grams) 67783.0 Usual body Weight (lbs) 161 [place] Body Weight 154lb ([place]) Recent Weight Change No Weight Status Approriate GI Symptoms Food Allergies No Cultural/Ethnic/Catholic Belief Unknown. Usual diet at home Unknown. Skin Integrity/Comment: Ruddy 11. Skin intact. Current %PO Good (75-100%) Estimated Nutritional Goals BEE in Kcals: Using Current wt Calories/Kcals/Kg 30-35kcal/kg Kcals Calculated 2205-2573kcal Protein: Using Current wt Protein g/k.2-1.4g/kg Protein Calculated 88-103g/kg Fluid: ml 2205-2573ml (1ml/kcal) Nutritional Problem 1. Problem Problem Increased kcal and prot needs related to Etiology hypermetabolic stated aeb Signs/Symptoms: pneumonia, COPD exacerbation, acute respiratory failure Intervention/Recommendation Comments 1. Continue with mech soft ground + necatar thick diet ( refer to subjective information in nutrition assessment). Continue to monitor and supervise during meal time. Expected Outcomes/Goals Expected Outcomes/Goals 1. PO intake to meet at least 75% of estimated nutritional needs. Physician Parameters for PEM Serum Albumin (g/dl) 3.5 - 5.0 (Normal)
[2016-09-21] MEDS: Atorvastatin Calcium 10 MG TAB PO SCH (20:09)
[2016-09-22] MEDS: Ipratropium Neb 0.5 mg/2.5 mL UD HHN SCH ×4 (00:55→18:34)
[2016-09-22] MEDS: Albuterol Nebulizer 2.5mg/3mL HHN SCH ×4 (07:03→18:34)
[2016-09-22] MEDS: Budesonide 0.5 Mg/2 mL Ud HHN SCH ×2 (07:25→18:34)
[2016-09-22] MEDS: Aspirin 81mg Chewable Tab PO SCH (08:11)
--- NOTE | 2016-09-22 15:19 | Internal Medicine Prog Note ---
Internal Medicine Subjective - Subjective Patient seen and examined:: with staff, chart reviewed Patient is:: asleep, interactive Patient Complaints of:: congestion Per staff patient is:: no adverse event, noncompliant, confused Internal Medicine Objective - Results Result Diagrams: 09/19/16 05:21 09/19/16 05:21 Recent Labs: Laboratory Last Values WBC 10.8 Th/cmm (4.8-10.8) 09/19/16 05:21 RBC 3.98 Mil/cmm (3.80-5.80) 09/19/16 05:21 Hgb 11.7 gm/dL (12.6-17.4) L 09/19/16 05:21 Hct 34.8 % (39.0-49.0) L 09/19/16 05:21 MCV 87.5 fl (80-99) 09/19/16 05:21 MCH 29.5 pg (27.0-31.0) 09/19/16 05:21 MCHC Differential 33.7 pg (28.0-36.0) 09/19/16 05:21 RDW 15.5 % (11.5-20.0) 09/19/16 05:21 Plt Count 155 Th/cmm (150-400) 09/19/16 05:21 MPV 7.7 fl 09/19/16 05:21 Neutrophils % 79.2 % (40.0-80.0) 09/19/16 05:21 Band Neutrophils % 1 % (0-10) 09/15/16 05:40 Lymphocytes % 14.6 % (20.0-50.0) L 09/19/16 05:21 Monocytes % 4.1 % (2.0-10.0) 09/19/16 05:21 Eosinophils % 2.0 % (0.0-5.0) 09/19/16 05:21 Basophils % 0.1 % (0.0-2.0) 09/19/16 05:21 Neutrophils (Manual) 86 % (40-80) H 09/15/16 05:40 Lymphocytes 9 % (20-50) L 09/15/16 05:40 Monocytes 4 % (2-10) 09/15/16 05:40 Eosinophils 1 % (0-5) 09/09/16 07:39 Basophils 1 % (0-3) 09/09/16 07:39 Platelet Estimate ADEQUATE (NORMAL) 09/15/16 05:40 Platelet Morphology NORMAL (NORMAL) 09/15/16 05:40 Poikilocytosis 1+ 09/08/16 06:41 Anisocytosis 1+ 09/13/16 06:22 Ovalocytes 1+ 09/08/16 06:41 RBC Morph Micro Appear NORMAL (NORMAL) 09/15/16 05:40 PT 9.8 SECONDS (9.5-11.5) 08/31/16 08:20 INR 0.99 (0.5-1.4) 08/31/16 08:20 Specimen Source Arterial 08/31/16 07:36 Sample Site Right Radial 08/31/16 07:36 pH 7.42 (7.35-7.45) 08/31/16 07:36 pCO2 42.0 mmHg (35.0-45.0) 08/31/16 07:36 pO2 53.0 mmHg (80.0-100.0) L 08/31/16 07:36 HCO3 27.2 mmol/L (20.0-26.0) H 08/31/16 07:36 Base Excess 2.4 mmol/L (-3.0-3.0) 08/31/16 07:36 O2 Saturation 88.0 % (92.0-100.0) L 08/31/16 07:36 Praveen Test YES 08/31/16 07:36 Vent Rate NA 08/31/16 07:36 Inspired O2 21 08/31/16 07:36 Tidal Volume NA 08/31/16 07:36 PEEP NA 08/31/16 07:36 Pressure (ins/psv/peep) NA 08/31/16 07:36 Critical Value SH 08/31/16 07:36 Sodium 140 mEq/L (136-145) 09/19/16 05:21 Potassium 4.3 mEq/L (3.5-5.1) 09/19/16 05:21 Chloride 108 mEq/L (98-107) H 09/19/16 05:21 Carbon Dioxide 29.4 mEq/L (21.0-31.0) 09/19/16 05:21 Anion Gap 6.9 (7.0-16.0) L 09/19/16 05:21 BUN 22 mg/dL (7-25) 09/19/16 05:21 Creatinine 0.6 mg/dL (0.7-1.3) L 09/19/16 05:21 Est GFR ( Amer) TNP 09/19/16 05:21 Est GFR (Non-Af Amer) TNP 09/19/16 05:21 BUN/Creatinine Ratio 36.7 09/19/16 05:21 Glucose 87 mg/dL (70-105) 09/19/16 05:21 POC Glucose 126 MG/DL (70 - 105) H 09/17/16 23:57 Hemoglobin A1c % 5.8 % (4.0-6.0) 09/03/16 09:20 Whole Bld Lactic Acid 1.32 mmol/L (0.60-1.99) 08/31/16 08:20 Calcium 8.9 mg/dL (8.6-10.3) 09/19/16 05:21 Magnesium 2.2 mg/dL (1.9-2.7) 09/06/16 05:55 Total Bilirubin 0.3 mg/dL (0.3-1.0) 09/06/16 05:55 AST 12 U/L (13-39) L 09/06/16 05:55 ALT 53 U/L (7-52) H 09/06/16 05:55 Alkaline Phosphatase 60 U/L (34-104) 09/06/16 05:55 Troponin I 0.02 ng/mL (0.01-0.05) 08/31/16 08:20 B-Natriuretic Peptide 129.0 pg/mL (5.0-100.0) H 09/06/16 05:55 Total Protein 5.4 gm/dL (6.0-8.3) L 09/06/16 05:55 Albumin 2.7 gm/dL (4.2-5.5) L 09/06/16 05:55 Globulin 2.7 gm/dL 09/06/16 05:55 Albumin/Globulin Ratio 1.0 (1.0-1.8) 09/06/16 05:55 TSH 0.39 uIU/ml (0.34-5.60) 08/31/16 08:20 Urine Source CLEAN C 09/03/16 17:00 Urine Color YELLOW 09/03/16 17:00 Urine Clarity CLEAR (CLEAR) 09/03/16 17:00 Urine pH 6.5 09/03/16 17:00 Ur Specific [place] 1.015 (1.005-1.030) 09/03/16 17:00 Urine Protein NEGATIVE mg/dL (NEGATIVE) 09/03/16 17:00 Urine Glucose (UA) NEGATIVE mg/dL (NEGATIVE) 09/03/16 17:00 Urine Ketones NEGATIVE mg/dL (NEGATIVE) 09/03/16 17:00 Urine Blood NEGATIVE (NEGATIVE) 09/03/16 17:00 Urine Nitrate NEGATIVE (NEGATIVE) 09/03/16 17:00 Urine Bilirubin NEGATIVE (NEGATIVE) 09/03/16 17:00 Urine Urobilinogen 0.2 E.U./dL (0.2 - 1.0) 09/03/16 17:00 Ur Leukocyte Esterase NEGATIVE (NEGATIVE) 09/03/16 17:00 Urine RBC NONE SEEN /hpf (0-5) 09/03/16 17:00 Urine WBC NONE SEEN /hpf (0-5) 09/03/16 17:00 Ur Epithelial Cells NONE SEEN /lpf (FEW) 09/03/16 17:00 Urine Bacteria NONE SEEN /hpf (NONE SEEN) 09/03/16 17:00 Vancomycin Trough 17.3 ug/mL (10-20) 09/06/16 09:00 RPR NONREACTIVE (NONREACTIVE) 08/31/16 08:20 - Physical Exam Vitals and I&O: Vital Signs Temp 98.1 F 09/22/16 12:00 Pulse 76 09/22/16 14:00 Resp 18 09/22/16 14:00 BP 130/71 09/22/16 12:00 Pulse Ox 99 09/22/16 14:00 Intake & Output 09/21/16 09/22/16 09/22/16 18:59 06:59 18:59 Intake Total 800 100 Balance 800 100 Intake: Oral 800 100 Other: # Voids 2 2 # Bowel Movements 1 Stool Characteristics Soft Formed Active Medications: Current Medications Acetaminophen (Tylenol) 650 mg PO Q4HR PRN PRN Reason: Pain or Fever >101 Stop: 10/30/16 09:31 Acetylcysteine (Mucomyst 20%) 2 ml HHN Q6HRT [facility] Stop: 10/30/16 18:59 Last Admin: 09/22/16 13:59 Dose: 2 ml Albuterol Sulfate (Albuterol 2.5mg/3ml Neb Ud) 2.5 mg HHN QIDRT [facility] Stop: 10/30/16 12:59 Last Admin: 09/22/16 14:00 Dose: 2.5 mg Amiodarone HCl (Cordarone) 200 mg PO DAILY [facility] Stop: 10/31/16 08:59 Last Admin: 09/22/16 08:11 Dose: 200 mg Aspirin (Aspirin Chewable) 81 mg PO DAILY [facility] Stop: 10/31/16 08:59 Last Admin: 09/22/16 08:11 Dose: 81 mg Atorvastatin Calcium (Lipitor) 10 mg PO HS [facility] PRN Reason: Protocol Stop: 10/30/16 20:59 Last Admin: 09/21/16 20:09 Dose: 10 mg Bisacodyl (Dulcolax 10 Mg Supp) 10 mg RC Q72H PRN PRN Reason: Constipation Stop: 10/30/16 09:31 Budesonide (Pulmicort) 0.5 mg HHN Q12HRT [facility] Stop: 10/30/16 09:44 Last Admin: 09/22/16 07:25 Dose: 0.5 mg Buspirone HCl (Buspar) 10 mg PO TID [facility] Stop: 10/30/16 13:59 Last Admin: 09/22/16 13:19 Dose: 10 mg Donepezil HCl (Aricept) 10 mg PO HS [facility] Stop: 10/30/16 20:59 Last Admin: 09/21/16 20:09 Dose: 10 mg Guaifenesin (Mucinex) 600 mg PO Q12HR PRN PRN Reason: Cough or Congestion Stop: 11/04/16 23:19 Ipratropium [place] (Atrovent Neb 0.5mg/2.5ml) 0.5 mg HHN Q6HRT [facility] Stop: 11/02/16 00:59 Last Admin: 09/22/16 13:59 Dose: 0.5 mg Magnesium Hydroxide (Milk Of Magnesia) 30 ml PO HS PRN PRN Reason: Constipation Stop: 10/30/16 09:31 Magnesium Hydroxide (Milk Of Magnesia) 30 ml PO DAILY PRN PRN Reason: Constipation Stop: 11/13/16 12:41 Montelukast Sodium (Singulair) 10 mg PO HS [facility] Stop: 10/30/16 20:59 Last Admin: 09/21/16 20:08 Dose: 10 mg Olanzapine (Zyprexa) 15 mg PO DAILY [facility] PRN Reason: Protocol Stop: 10/31/16 08:59 Last Admin: 09/22/16 08:11 Dose: 15 mg Ondansetron HCl (Zofran) 4 mg IV Q8H PRN PRN Reason: Nausea / Vomiting Stop: 10/30/16 09:34 Sodium Phosphate (Fleet Enema) 135 ml RC PRN PRN PRN Reason: Constipation Stop: 10/30/16 09:31 Tamsulosin HCl (Flomax) 0.4 mg PO HS [facility] Stop: 10/30/16 20:59 Last Admin: 09/21/16 20:08 Dose: 0.4 mg General: congested HEENT: NC/AT, PERRLA, EOMI Neck: Supple Lungs: congested, rales, ronchi Cardiovascular: RRR, Normal S1, Normal S2 Abdomen: soft non-tender, globular, distended, positive bowel sound Extremities: excoriation, contracture Neurological: no change, disorganized, unable to follow command - Procedures Procedures: Procedures Procedure Code Date ASSISTANCE WITH RESPIRATORY VENTILATION, <24 HRS, CPAP 8E30083 06/29/16 EXCISION OF DUODENUM, ENDO, DIAGN [id number] 07/18/16 EXCISION OF ESOPHAGUS, ENDO, DIAGN [id number] 07/18/16 EXCISION OF STOMACH, ENDO, DIAGN [id number] 07/18/16 POS AIRWAY PRESSURE CPAP 25560 06/29/16 Internal Medicine Assmt/Plan - Assessment Assessment: Pneumonia better acute Copd exacerbation acute Respiratory Failure htn dyslipidemia dementia debility, functional quad leukocytosis - Plan Plan: cont on o2 will decrease iv steroid ct chest noted will confer w pulm dw rn Nutritional Asmnt/Malnutr-PDOC - Dietary Evaluation Malnutrition Findings (Please click <Entered> for more info): Nutritional Asmnt/Malnutrition Start: 09/02/16 14: 33 Text: Status: Complete Freq: Document 09/02/16 14:34 GSUN (Rec: 09/02/16 14:52 GSUN [email or web address]) Nutritional Asmnt/Malnutrition Patient General Information Nutritional Screening High Risk Screening Diagnosis Pneumonia, acute respiratory failure, COPD exacerbation Pertinent Medical Hx/Surgical Hx HTN, CAD, asthma, COPD, dyslipidemia, PUD, GERD, dementia Subjective Information 75yo M from SNF. Pt was alert, appeared anxious during visit . Pt was admitted here once in past July and twice in past June. Pt was ordered pureed + nectar thick during previous two stays. Most recent swallow eval 06/26/16 ST recommended mech soft + nectar thick. Discussed with pt regarding diet texture and tolerance, pt denied difficulties chewing/ swallowing and expressed preference for current [facility]ch soft ground. Encouraged pt to inform RN if any diet texture intolerance noted, pt understood. PO intake 100% all 3 meals yesterday 09/01. Unable to lower pt's head for bedscale due to pt appeared anxious. Current Diet Order/ Nutrition Support Mech soft ground + nectar thick Pertinent Medications Dulcolax, D5, MOM, Solu-Medrol , Vancomycin, Zofran, Fleet Enema Pertinent Labs Reviewed. Glucose 105, 143, 145 Nutritional Hx/Data Height 1.73 m Height (Calculated Centimeters) 172.7 Current Weight (lbs) 73.482 kg Weight (Calculated Kilograms) 73.5 Weight (Calculated Grams) 93108.0 Usual body Weight (lbs) 161 [place] Body Weight 154lb ([place]) Recent Weight Change No Weight Status Approriate GI Symptoms Food Allergies No Cultural/Ethnic/Spiritism Belief Unknown. Usual diet at home Unknown. Skin Integrity/Comment: Ruddy 11. Skin intact. Current %PO Good (75-100%) Estimated Nutritional Goals BEE in Kcals: Using Current wt Calories/Kcals/Kg 30-35kcal/kg Kcals Calculated 2205-2573kcal Protein: Using Current wt Protein g/k.2-1.4g/kg Protein Calculated 88-103g/kg Fluid: ml 2205-2573ml (1ml/kcal) Nutritional Problem 1. Problem Problem Increased kcal and prot needs related to Etiology hypermetabolic stated aeb Signs/Symptoms: pneumonia, COPD exacerbation, acute respiratory failure Intervention/Recommendation Comments 1. Continue with mech soft ground + necatar thick diet ( refer to subjective information in nutrition assessment). Continue to monitor and supervise during meal time. Expected Outcomes/Goals Expected Outcomes/Goals 1. PO intake to meet at least 75% of estimated nutritional needs. Physician Parameters for PEM Serum Albumin (g/dl) 3.5 - 5.0 (Normal)
[2016-09-22] MEDS: Atorvastatin Calcium 10 MG TAB PO SCH (20:28)
[2016-09-23] MEDS: Ipratropium Neb 0.5 mg/2.5 mL UD HHN SCH ×4 (01:04→19:33)
[2016-09-23] MEDS: Albuterol Nebulizer 2.5mg/3mL HHN SCH ×4 (07:28→19:33)
[2016-09-23] MEDS: Budesonide 0.5 Mg/2 mL Ud HHN SCH ×2 (07:28→19:34)
[2016-09-23] MEDS: Aspirin 81mg Chewable Tab PO SCH (08:41)
--- NOTE | 2016-09-23 12:42 | Internal Medicine Prog Note ---
Internal Medicine Subjective - Subjective Service Date: 09/23/16 Patient seen and examined:: with staff Patient is:: awake Patient Complaints of:: congestion Per staff patient is:: no adverse event Internal Medicine Objective - Results Result Diagrams: 09/19/16 05:21 09/19/16 05:21 Recent Labs: Laboratory Last Values WBC 10.8 Th/cmm (4.8-10.8) 09/19/16 05:21 RBC 3.98 Mil/cmm (3.80-5.80) 09/19/16 05:21 Hgb 11.7 gm/dL (12.6-17.4) L 09/19/16 05:21 Hct 34.8 % (39.0-49.0) L 09/19/16 05:21 MCV 87.5 fl (80-99) 09/19/16 05:21 MCH 29.5 pg (27.0-31.0) 09/19/16 05:21 MCHC Differential 33.7 pg (28.0-36.0) 09/19/16 05:21 RDW 15.5 % (11.5-20.0) 09/19/16 05:21 Plt Count 155 Th/cmm (150-400) 09/19/16 05:21 MPV 7.7 fl 09/19/16 05:21 Neutrophils % 79.2 % (40.0-80.0) 09/19/16 05:21 Band Neutrophils % 1 % (0-10) 09/15/16 05:40 Lymphocytes % 14.6 % (20.0-50.0) L 09/19/16 05:21 Monocytes % 4.1 % (2.0-10.0) 09/19/16 05:21 Eosinophils % 2.0 % (0.0-5.0) 09/19/16 05:21 Basophils % 0.1 % (0.0-2.0) 09/19/16 05:21 Neutrophils (Manual) 86 % (40-80) H 09/15/16 05:40 Lymphocytes 9 % (20-50) L 09/15/16 05:40 Monocytes 4 % (2-10) 09/15/16 05:40 Eosinophils 1 % (0-5) 09/09/16 07:39 Basophils 1 % (0-3) 09/09/16 07:39 Platelet Estimate ADEQUATE (NORMAL) 09/15/16 05:40 Platelet Morphology NORMAL (NORMAL) 09/15/16 05:40 Poikilocytosis 1+ 09/08/16 06:41 Anisocytosis 1+ 09/13/16 06:22 Ovalocytes 1+ 09/08/16 06:41 RBC Morph Micro Appear NORMAL (NORMAL) 09/15/16 05:40 PT 9.8 SECONDS (9.5-11.5) 08/31/16 08:20 INR 0.99 (0.5-1.4) 08/31/16 08:20 Specimen Source Arterial 08/31/16 07:36 Sample Site Right Radial 08/31/16 07:36 pH 7.42 (7.35-7.45) 08/31/16 07:36 pCO2 42.0 mmHg (35.0-45.0) 08/31/16 07:36 pO2 53.0 mmHg (80.0-100.0) L 08/31/16 07:36 HCO3 27.2 mmol/L (20.0-26.0) H 08/31/16 07:36 Base Excess 2.4 mmol/L (-3.0-3.0) 08/31/16 07:36 O2 Saturation 88.0 % (92.0-100.0) L 08/31/16 07:36 Praveen Test YES 08/31/16 07:36 Vent Rate NA 08/31/16 07:36 Inspired O2 21 08/31/16 07:36 Tidal Volume NA 08/31/16 07:36 PEEP NA 08/31/16 07:36 Pressure (ins/psv/peep) NA 08/31/16 07:36 Critical Value SH 08/31/16 07:36 Sodium 140 mEq/L (136-145) 09/19/16 05:21 Potassium 4.3 mEq/L (3.5-5.1) 09/19/16 05:21 Chloride 108 mEq/L (98-107) H 09/19/16 05:21 Carbon Dioxide 29.4 mEq/L (21.0-31.0) 09/19/16 05:21 Anion Gap 6.9 (7.0-16.0) L 09/19/16 05:21 BUN 22 mg/dL (7-25) 09/19/16 05:21 Creatinine 0.6 mg/dL (0.7-1.3) L 09/19/16 05:21 Est GFR ( Amer) TNP 09/19/16 05:21 Est GFR (Non-Af Amer) TNP 09/19/16 05:21 BUN/Creatinine Ratio 36.7 09/19/16 05:21 Glucose 87 mg/dL (70-105) 09/19/16 05:21 POC Glucose 126 MG/DL (70 - 105) H 09/17/16 23:57 Hemoglobin A1c % 5.8 % (4.0-6.0) 09/03/16 09:20 Whole Bld Lactic Acid 1.32 mmol/L (0.60-1.99) 08/31/16 08:20 Calcium 8.9 mg/dL (8.6-10.3) 09/19/16 05:21 Magnesium 2.2 mg/dL (1.9-2.7) 09/06/16 05:55 Total Bilirubin 0.3 mg/dL (0.3-1.0) 09/06/16 05:55 AST 12 U/L (13-39) L 09/06/16 05:55 ALT 53 U/L (7-52) H 09/06/16 05:55 Alkaline Phosphatase 60 U/L (34-104) 09/06/16 05:55 Troponin I 0.02 ng/mL (0.01-0.05) 08/31/16 08:20 B-Natriuretic Peptide 129.0 pg/mL (5.0-100.0) H 09/06/16 05:55 Total Protein 5.4 gm/dL (6.0-8.3) L 09/06/16 05:55 Albumin 2.7 gm/dL (4.2-5.5) L 09/06/16 05:55 Globulin 2.7 gm/dL 09/06/16 05:55 Albumin/Globulin Ratio 1.0 (1.0-1.8) 09/06/16 05:55 TSH 0.39 uIU/ml (0.34-5.60) 08/31/16 08:20 Urine Source CLEAN C 09/03/16 17:00 Urine Color YELLOW 09/03/16 17:00 Urine Clarity CLEAR (CLEAR) 09/03/16 17:00 Urine pH 6.5 09/03/16 17:00 Ur Specific [place] 1.015 (1.005-1.030) 09/03/16 17:00 Urine Protein NEGATIVE mg/dL (NEGATIVE) 09/03/16 17:00 Urine Glucose (UA) NEGATIVE mg/dL (NEGATIVE) 09/03/16 17:00 Urine Ketones NEGATIVE mg/dL (NEGATIVE) 09/03/16 17:00 Urine Blood NEGATIVE (NEGATIVE) 09/03/16 17:00 Urine Nitrate NEGATIVE (NEGATIVE) 09/03/16 17:00 Urine Bilirubin NEGATIVE (NEGATIVE) 09/03/16 17:00 Urine Urobilinogen 0.2 E.U./dL (0.2 - 1.0) 09/03/16 17:00 Ur Leukocyte Esterase NEGATIVE (NEGATIVE) 09/03/16 17:00 Urine RBC NONE SEEN /hpf (0-5) 09/03/16 17:00 Urine WBC NONE SEEN /hpf (0-5) 09/03/16 17:00 Ur Epithelial Cells NONE SEEN /lpf (FEW) 09/03/16 17:00 Urine Bacteria NONE SEEN /hpf (NONE SEEN) 09/03/16 17:00 Vancomycin Trough 17.3 ug/mL (10-20) 09/06/16 09:00 RPR NONREACTIVE (NONREACTIVE) 08/31/16 08:20 - Physical Exam Vitals and I&O: Vital Signs Temp 97.1 F 09/23/16 12:00 Pulse 74 09/23/16 12:08 Resp 18 09/23/16 12:08 BP 120/68 09/23/16 12:00 Pulse Ox 98 09/23/16 12:08 Intake & Output 09/22/16 09/23/16 09/23/16 18:59 06:59 18:59 Intake Total 700 Balance 700 Intake: Oral 700 Other: # Voids 1 Active Medications: Current Medications Acetaminophen (Tylenol) 650 mg PO Q4HR PRN PRN Reason: Pain or Fever >101 Stop: 10/30/16 09:31 Acetylcysteine (Mucomyst 20%) 2 ml HHN Q6HRT [facility] Stop: 10/30/16 18:59 Last Admin: 09/23/16 12:04 Dose: 2 ml Albuterol Sulfate (Albuterol 2.5mg/3ml Neb Ud) 2.5 mg HHN QIDRT [facility] Stop: 10/30/16 12:59 Last Admin: 09/23/16 12:05 Dose: 2.5 mg Amiodarone HCl (Cordarone) 200 mg PO DAILY [facility] Stop: 10/31/16 08:59 Last Admin: 09/23/16 08:41 Dose: 200 mg Aspirin (Aspirin Chewable) 81 mg PO DAILY [facility] Stop: 10/31/16 08:59 Last Admin: 09/23/16 08:41 Dose: 81 mg Atorvastatin Calcium (Lipitor) 10 mg PO HS [facility] PRN Reason: Protocol Stop: 10/30/16 20:59 Last Admin: 09/22/16 20:28 Dose: 10 mg Bisacodyl (Dulcolax 10 Mg Supp) 10 mg RC Q72H PRN PRN Reason: Constipation Stop: 10/30/16 09:31 Budesonide (Pulmicort) 0.5 mg HHN Q12HRT [facility] Stop: 10/30/16 09:44 Last Admin: 09/23/16 07:28 Dose: 0.5 mg Buspirone HCl (Buspar) 10 mg PO TID [facility] Stop: 10/30/16 13:59 Last Admin: 09/23/16 08:41 Dose: 10 mg Donepezil HCl (Aricept) 10 mg PO HS [facility] Stop: 10/30/16 20:59 Last Admin: 09/22/16 20:29 Dose: 10 mg Guaifenesin (Mucinex) 600 mg PO Q12HR PRN PRN Reason: Cough or Congestion Stop: 11/04/16 23:19 Ipratropium [place] (Atrovent Neb 0.5mg/2.5ml) 0.5 mg HHN Q6HRT [facility] Stop: 11/02/16 00:59 Last Admin: 09/23/16 12:05 Dose: 0.5 mg Magnesium Hydroxide (Milk Of Magnesia) 30 ml PO HS PRN PRN Reason: Constipation Stop: 10/30/16 09:31 Magnesium Hydroxide (Milk Of Magnesia) 30 ml PO DAILY PRN PRN Reason: Constipation Stop: 11/13/16 12:41 Montelukast Sodium (Singulair) 10 mg PO HS [facility] Stop: 10/30/16 20:59 Last Admin: 09/22/16 20:29 Dose: 10 mg Olanzapine (Zyprexa) 15 mg PO DAILY [facility] PRN Reason: Protocol Stop: 10/31/16 08:59 Last Admin: 09/23/16 08:41 Dose: 15 mg Ondansetron HCl (Zofran) 4 mg IV Q8H PRN PRN Reason: Nausea / Vomiting Stop: 10/30/16 09:34 Sodium Phosphate (Fleet Enema) 135 ml RC PRN PRN PRN Reason: Constipation Stop: 10/30/16 09:31 Tamsulosin HCl (Flomax) 0.4 mg PO HS [facility] Stop: 10/30/16 20:59 Last Admin: 09/22/16 20:29 Dose: 0.4 mg General: weak, alert HEENT: NC/AT Neck: Supple Lungs: congested, ronchi Cardiovascular: RRR, Normal S1, Normal S2, without murmur Abdomen: soft non-tender, non-distended, positive bowel sound - Procedures Procedures: Procedures Procedure Code Date ASSISTANCE WITH RESPIRATORY VENTILATION, <24 HRS, CPAP [id number] 06/29/16 EXCISION OF DUODENUM, ENDO, DIAGN [id number] 07/18/16 EXCISION OF ESOPHAGUS, ENDO, DIAGN [id number] 07/18/16 EXCISION OF STOMACH, ENDO, DIAGN [id number] 07/18/16 POS AIRWAY PRESSURE CPAP [id number] 06/29/16 Internal Medicine Assmt/Plan - Assessment Assessment: Pneumonia Copd exacerbation Respiratory Failure htn dyslipidemia dementia - Plan Plan: case fitter arranging snf placement bronchodilators continue ivabx supplemental o2 cpm Nutritional Asmnt/Malnutr-PDOC - Dietary Evaluation Malnutrition Findings (Please click <Entered> for more info): Nutritional Asmnt/Malnutrition Start: 09/02/16 14: 33 Text: Status: Complete Freq: Document 09/02/16 14:34 GSUN (Rec: 09/02/16 14:52 [email or web address] [email or web address]) Nutritional Asmnt/Malnutrition Patient General Information Nutritional Screening High Risk Screening Diagnosis Pneumonia, acute respiratory failure, COPD exacerbation Pertinent Medical Hx/Surgical Hx HTN, CAD, asthma, COPD, dyslipidemia, PUD, GERD, dementia Subjective Information 75yo M from SNF. Pt was alert, appeared anxious during visit . Pt was admitted here once in past July and twice in past June. Pt was ordered pureed + nectar thick during previous two stays. Most recent swallow eval 06/[facility]. Discussed with pt regarding diet texture and tolerance, pt denied difficulties chewing/ swallowing and expressed preference for current [facility] soft ground. Encouraged pt to inform RN if any diet texture intolerance noted, pt understood. PO intake 100% all 3 meals yesterday 09/01. Unable to lower pt's head for bedscale due to pt appeared anxious. Current Diet Order/ Nutrition Support [facility] soft ground + nectar thick Pertinent Medications Dulcolax, D5, MOM, Solu-Medrol , Vancomycin, Zofran, Fleet Enema Pertinent Labs Reviewed. Glucose 105, 143, 145 Nutritional Hx/Data Height 5 ft 8 in Height (Calculated Centimeters) 172.7 Current Weight (lbs) 162 lb Weight (Calculated Kilograms) 73.5 Weight (Calculated Grams) 13525.0 Usual body Weight (lbs) 161 [place] Body Weight 154lb ([place]) Recent Weight Change No Weight Status Approriate GI Symptoms Food Allergies No Cultural/Ethnic/Hoahaoism Belief Unknown. Usual diet at home Unknown. Skin Integrity/Comment: Ruddy [place]. Skin intact. Current %PO Good (75-100%) Estimated Nutritional Goals BEE in Kcals: Using Current wt Calories/Kcals/Kg 30-35kcal/kg Kcals Calculated 2205-2573kcal Protein: Using Current wt Protein g/k.2-1.4g/kg Protein Calculated 88-103g/kg Fluid: ml 2205-2573ml (1ml/kcal) Nutritional Problem 1. Problem Problem Increased kcal and prot needs related to Etiology hypermetabolic stated aeb Signs/Symptoms: pneumonia, COPD exacerbation, acute respiratory failure Intervention/Recommendation Comments 1. Continue with [facility] soft ground + necatar thick diet ( refer to subjective information in nutrition assessment). Continue to monitor and supervise during meal time. Expected Outcomes/Goals Expected Outcomes/Goals 1. PO intake to meet at least 75% of estimated nutritional needs. Physician Parameters for PEM Serum Albumin (g/dl) 3.5 - 5.0 (Normal)
[2016-09-23] MEDS: Atorvastatin Calcium 10 MG TAB PO SCH (21:30)
[2016-09-24] MEDS: Ipratropium Neb 0.5 mg/2.5 mL UD HHN SCH ×3 (00:24→19:01)
[2016-09-24] MEDS: Albuterol Nebulizer 2.5mg/3mL HHN SCH ×4 (07:28→19:00)
[2016-09-24 07:30] LABS: ANION GAP 7.9 (7.0-16.0); BUN - UREA NITROGEN 18 mg/dL (7-25); CARBON DIOXIDE 28.3 mEq/L (21.0-31.0); CHLORIDE 108 mEq/L (98-107); CREATININE - SERUM 0.5 mg/dL (0.7-1.3); GLUCOSE 77 mg/dL (70-105); POTASSIUM SERUM 4.2 mEq/L (3.5-5.1); SODIUM SERUM 140 mEq/L (136-145)
[2016-09-24 07:36] LABS: % BASOPHILS 0.3 % (0.0-2.0); % EOSINOPHILS 5.3 % (0.0-5.0); % LYMPHOCYTES 18.4 % (20.0-50.0); % MONOCYTES 7.2 % (2.0-10.0); % NEUTROPHILS 68.8 % (40.0-80.0); HEMATOCRIT 33.9 % (39.0-49.0); HEMOGLOBIN 11.4 gm/dL (12.6-17.4); MEAN CELL VOLUME 88.8 fl (80-99); MEAN CORPUSCULAR HEMOGLOBIN 29.9 pg (27.0-31.0); MEAN CORPUSCULAR HGB CONC 33.6 pg (28.0-36.0); MEAN PLATELET VOLUME 7.7 fl; NEUTROPHILE ABSOLUTE 4.6 Th/cmm (1.8-8.0); RED BLOOD COUNT 3.82 Mil/cmm (3.80-5.80); RED CELL DISTRIBUTION WIDTH 15.6 % (11.5-20.0)
[2016-09-24] MEDS: Budesonide 0.5 Mg/2 mL Ud HHN SCH ×2 (07:42→19:01)
[2016-09-24 07:44] LABS: PLATELET COUNT 190 Th/cmm (150-400); WHITE BLOOD COUNT 6.7 Th/cmm (4.8-10.8)
[2016-09-24] MEDS: Aspirin 81mg Chewable Tab PO SCH (08:15)
--- NOTE | 2016-09-24 08:40 | Diagnostic Imaging Report ---
Portable chest x-ray HISTORY: Shortness of breath Compared to prior exam of September 19, 2016, the heart remains enlarged. Density remains in left lower hemithorax. Consolidation and/or atelectasis cannot be excluded. Surgical changes again noted. IMPRESSION: 1. No change in the cardiopulmonary status since September 19, 2016 as noted above.
--- NOTE | 2016-09-24 11:05 | Internal Medicine Prog Note ---
Internal Medicine Subjective - Subjective Service Date: 09/24/16 Patient seen and examined:: with staff Patient is:: awake Per staff patient is:: no adverse event Internal Medicine Objective - Results Result Diagrams: 09/24/16 06:22 09/24/16 06:22 Recent Labs: Laboratory Last Values WBC 6.7 Th/cmm (4.8-10.8) D 09/24/16 06:22 RBC 3.82 Mil/cmm (3.80-5.80) 09/24/16 06:22 Hgb 11.4 gm/dL (12.6-17.4) L 09/24/16 06:22 Hct 33.9 % (39.0-49.0) L 09/24/16 06:22 MCV 88.8 fl (80-99) 09/24/16 06:22 MCH 29.9 pg (27.0-31.0) 09/24/16 06:22 MCHC Differential 33.6 pg (28.0-36.0) 09/24/16 06:22 RDW 15.6 % (11.5-20.0) 09/24/16 06:22 Plt Count 190 Th/cmm (150-400) D 09/24/16 06:22 MPV 7.7 fl 09/24/16 06:22 Neutrophils % 68.8 % (40.0-80.0) 09/24/16 06:22 Band Neutrophils % 1 % (0-10) 09/15/16 05:40 Lymphocytes % 18.4 % (20.0-50.0) L 09/24/16 06:22 Monocytes % 7.2 % (2.0-10.0) 09/24/16 06:22 Eosinophils % 5.3 % (0.0-5.0) H 09/24/16 06:22 Basophils % 0.3 % (0.0-2.0) 09/24/16 06:22 Neutrophils (Manual) 86 % (40-80) H 09/15/16 05:40 Lymphocytes 9 % (20-50) L 09/15/16 05:40 Monocytes 4 % (2-10) 09/15/16 05:40 Eosinophils 1 % (0-5) 09/09/16 07:39 Basophils 1 % (0-3) 09/09/16 07:39 Platelet Estimate ADEQUATE (NORMAL) 09/15/16 05:40 Platelet Morphology NORMAL (NORMAL) 09/15/16 05:40 Poikilocytosis 1+ 09/08/16 06:41 Anisocytosis 1+ 09/13/16 06:22 Ovalocytes 1+ 09/08/16 06:41 RBC Morph Micro Appear NORMAL (NORMAL) 09/15/16 05:40 PT 9.8 SECONDS (9.5-11.5) 08/31/16 08:20 INR 0.99 (0.5-1.4) 08/31/16 08:20 Specimen Source Arterial 08/31/16 07:36 Sample Site Right Radial 08/31/16 07:36 pH 7.42 (7.35-7.45) 08/31/16 07:36 pCO2 42.0 mmHg (35.0-45.0) 08/31/16 07:36 pO2 53.0 mmHg (80.0-100.0) L 08/31/16 07:36 HCO3 27.2 mmol/L (20.0-26.0) H 08/31/16 07:36 Base Excess 2.4 mmol/L (-3.0-3.0) 08/31/16 07:36 O2 Saturation 88.0 % (92.0-100.0) L 08/31/16 07:36 Praveen Test YES 08/31/16 07:36 Vent Rate NA 08/31/16 07:36 Inspired O2 21 08/31/16 07:36 Tidal Volume NA 08/31/16 07:36 PEEP NA 08/31/16 07:36 Pressure (ins/psv/peep) NA 08/31/16 07:36 Critical Value SH 08/31/16 07:36 Sodium 140 mEq/L (136-145) 09/24/16 06:22 Potassium 4.2 mEq/L (3.5-5.1) 09/24/16 06:22 Chloride 108 mEq/L (98-107) H 09/24/16 06:22 Carbon Dioxide 28.3 mEq/L (21.0-31.0) 09/24/16 06:22 Anion Gap 7.9 (7.0-16.0) 09/24/16 06:22 BUN 18 mg/dL (7-25) 09/24/16 06:22 Creatinine 0.5 mg/dL (0.7-1.3) L 09/24/16 06:22 Est GFR ( Amer) TNP 09/24/16 06:22 Est GFR (Non-Af Amer) TNP 09/24/16 06:22 BUN/Creatinine Ratio 36.0 09/24/16 06:22 Glucose 77 mg/dL (70-105) 09/24/16 06:22 POC Glucose 126 MG/DL (70 - 105) H 09/17/16 23:57 Hemoglobin A1c % 5.8 % (4.0-6.0) 09/03/16 09:20 Whole Bld Lactic Acid 1.32 mmol/L (0.60-1.99) 08/31/16 08:20 Calcium 9.0 mg/dL (8.6-10.3) 09/24/16 06:22 Magnesium 2.2 mg/dL (1.9-2.7) 09/06/16 05:55 Total Bilirubin 0.3 mg/dL (0.3-1.0) 09/06/16 05:55 AST 12 U/L (13-39) L 09/06/16 05:55 ALT 53 U/L (7-52) H 09/06/16 05:55 Alkaline Phosphatase 60 U/L (34-104) 09/06/16 05:55 Troponin I 0.02 ng/mL (0.01-0.05) 08/31/16 08:20 B-Natriuretic Peptide 129.0 pg/mL (5.0-100.0) H 09/06/16 05:55 Total Protein 5.4 gm/dL (6.0-8.3) L 09/06/16 05:55 Albumin 2.7 gm/dL (4.2-5.5) L 09/06/16 05:55 Globulin 2.7 gm/dL 09/06/16 05:55 Albumin/Globulin Ratio 1.0 (1.0-1.8) 09/06/16 05:55 TSH 0.39 uIU/ml (0.34-5.60) 08/31/16 08:20 Urine Source CLEAN C 09/03/16 17:00 Urine Color YELLOW 09/03/16 17:00 Urine Clarity CLEAR (CLEAR) 09/03/16 17:00 Urine pH 6.5 09/03/16 17:00 Ur Specific [place] 1.015 (1.005-1.030) 09/03/16 17:00 Urine Protein NEGATIVE mg/dL (NEGATIVE) 09/03/16 17:00 Urine Glucose (UA) NEGATIVE mg/dL (NEGATIVE) 09/03/16 17:00 Urine Ketones NEGATIVE mg/dL (NEGATIVE) 09/03/16 17:00 Urine Blood NEGATIVE (NEGATIVE) 09/03/16 17:00 Urine Nitrate NEGATIVE (NEGATIVE) 09/03/16 17:00 Urine Bilirubin NEGATIVE (NEGATIVE) 09/03/16 17:00 Urine Urobilinogen 0.2 E.U./dL (0.2 - 1.0) 09/03/16 17:00 Ur Leukocyte Esterase NEGATIVE (NEGATIVE) 09/03/16 17:00 Urine RBC NONE SEEN /hpf (0-5) 09/03/16 17:00 Urine WBC NONE SEEN /hpf (0-5) 09/03/16 17:00 Ur Epithelial Cells NONE SEEN /lpf (FEW) 09/03/16 17:00 Urine Bacteria NONE SEEN /hpf (NONE SEEN) 09/03/16 17:00 Vancomycin Trough 17.3 ug/mL (10-20) 09/06/16 09:00 RPR NONREACTIVE (NONREACTIVE) 08/31/16 08:20 - Physical Exam Vitals and I&O: Vital Signs Temp 97.4 F 09/24/16 08:00 Pulse 60 09/24/16 08:15 Resp 16 09/24/16 08:00 BP 120/65 09/24/16 08:00 Pulse Ox 98 09/24/16 08:00 Intake & Output 09/23/16 09/24/16 09/24/16 18:59 06:59 18:59 Intake Total 800 Balance 800 Weight (lbs) 160 lb 1.6 oz Intake: Oral 800 Other: # Voids 2 # Bowel Movements 1 Active Medications: Current Medications Acetaminophen (Tylenol) 650 mg PO Q4HR PRN PRN Reason: Pain or Fever >101 Stop: 10/30/16 09:31 Acetylcysteine (Mucomyst 20%) 2 ml HHN Q6HRT [facility] Stop: 10/30/16 18:59 Last Admin: 09/24/16 07:44 Dose: 2 ml Albuterol Sulfate (Albuterol 2.5mg/3ml Neb Ud) 2.5 mg HHN QIDRT [facility] Stop: 10/30/16 12:59 Last Admin: 09/24/16 07:28 Dose: 2.5 mg Amiodarone HCl (Cordarone) 200 mg PO DAILY [facility] Stop: 10/31/16 08:59 Last Admin: 09/24/16 08:15 Dose: 200 mg Aspirin (Aspirin Chewable) 81 mg PO DAILY [facility] Stop: 10/31/16 08:59 Last Admin: 09/24/16 08:15 Dose: 81 mg Atorvastatin Calcium (Lipitor) 10 mg PO HS [facility] PRN Reason: Protocol Stop: 10/30/16 20:59 Last Admin: 09/23/16 21:30 Dose: 10 mg Bisacodyl (Dulcolax 10 Mg Supp) 10 mg RC Q72H PRN PRN Reason: Constipation Stop: 10/30/16 09:31 Budesonide (Pulmicort) 0.5 mg HHN Q12HRT [facility] Stop: 10/30/16 09:44 Last Admin: 09/24/16 07:42 Dose: 0.5 mg Buspirone HCl (Buspar) 10 mg PO TID [facility] Stop: 10/30/16 13:59 Last Admin: 09/24/16 08:16 Dose: 10 mg Donepezil HCl (Aricept) 10 mg PO HS [facility] Stop: 10/30/16 20:59 Last Admin: 09/23/16 21:30 Dose: 10 mg Guaifenesin (Mucinex) 600 mg PO Q12HR PRN PRN Reason: Cough or Congestion Stop: 11/04/16 23:19 Ipratropium [place] (Atrovent Neb 0.5mg/2.5ml) 0.5 mg HHN Q6HRT [facility] Stop: 11/02/16 00:59 Last Admin: 09/24/16 00:24 Dose: 0.5 mg Magnesium Hydroxide (Milk Of Magnesia) 30 ml PO HS PRN PRN Reason: Constipation Stop: 10/30/16 09:31 Magnesium Hydroxide (Milk Of Magnesia) 30 ml PO DAILY PRN PRN Reason: Constipation Stop: 11/13/16 12:41 Montelukast Sodium (Singulair) 10 mg PO HS [facility] Stop: 10/30/16 20:59 Last Admin: 09/23/16 21:30 Dose: 10 mg Olanzapine (Zyprexa) 15 mg PO DAILY [facility] PRN Reason: Protocol Stop: 10/31/16 08:59 Last Admin: 09/24/16 08:15 Dose: 15 mg Ondansetron HCl (Zofran) 4 mg IV Q8H PRN PRN Reason: Nausea / Vomiting Stop: 10/30/16 09:34 Sodium Phosphate (Fleet Enema) 135 ml RC PRN PRN PRN Reason: Constipation Stop: 10/30/16 09:31 Tamsulosin HCl (Flomax) 0.4 mg PO HS [facility] Stop: 10/30/16 20:59 Last Admin: 09/23/16 21:30 Dose: 0.4 mg General: alert HEENT: NC/AT, PERRLA Neck: Supple Lungs: CTAB Cardiovascular: RRR, Normal S1, Normal S2, without murmur Abdomen: soft non-tender, non-distended, positive bowel sound Extremities: clear Neurological: no change - Procedures Procedures: Procedures Procedure Code Date ASSISTANCE WITH RESPIRATORY VENTILATION, <24 HRS, CPAP [id number] 06/29/16 EXCISION OF DUODENUM, ENDO, DIAGN [id number] 07/18/16 EXCISION OF ESOPHAGUS, ENDO, DIAGN [id number] 07/18/16 EXCISION OF STOMACH, ENDO, DIAGN [id number] 07/18/16 POS AIRWAY PRESSURE CPAP 44775 06/29/16 Internal Medicine Assmt/Plan - Assessment Assessment: Pneumonia Copd exacerbation Respiratory Failure htn dyslipidemia dementia - Plan Plan: placement issues bronchodilators continue ivabx supplemental o2 cpm Nutritional Asmnt/Malnutr-PDOC - Dietary Evaluation Malnutrition Findings (Please click <Entered> for more info): Nutritional Asmnt/Malnutrition Start: 09/02/16 14: 33 Text: Status: Complete Freq: Document 09/02/16 14:34 GSUN (Rec: 09/02/16 14:52 [id number]) Nutritional Asmnt/Malnutrition Patient General Information Nutritional Screening High Risk Screening Diagnosis Pneumonia, acute respiratory failure, COPD exacerbation Pertinent Medical Hx/Surgical Hx HTN, CAD, asthma, COPD, dyslipidemia, PUD, GERD, dementia Subjective Information 75yo M from SNF. Pt was alert, appeared anxious during visit . Pt was admitted here once in past July and twice in past June. Pt was ordered pureed + nectar thick during previous two stays. Most recent swallow eval 06/26/16 ST recommended mech soft + nectar thick. Discussed with pt regarding diet texture and tolerance, pt denied difficulties chewing/ swallowing and expressed preference for current mech soft ground. Encouraged pt to inform RN if any diet texture intolerance noted, pt understood. PO intake 100% all 3 meals yesterday 09/01. Unable to lower pt's head for bedscale due to pt appeared anxious. Current Diet Order/ Nutrition Support Mech soft ground + nectar thick Pertinent Medications Dulcolax, D5, MOM, Solu-Medrol , Vancomycin, Zofran, Fleet Enema Pertinent Labs Reviewed. Glucose 105, 143, 145 Nutritional Hx/Data Height 5 ft 8 in Height (Calculated Centimeters) 172.7 Current Weight (lbs) 162 lb Weight (Calculated Kilograms) 73.5 Weight (Calculated Grams) 26944.0 Usual body Weight (lbs) 161 [place] Body Weight 154lb ([place]) Recent Weight Change No Weight Status Approriate GI Symptoms Food Allergies No Cultural/Ethnic/Orthodoxy Belief Unknown. Usual diet at home Unknown. Skin Integrity/Comment: Ruddy 11. Skin intact. Current %PO Good (75-100%) Estimated Nutritional Goals BEE in Kcals: Using Current wt Calories/Kcals/Kg 30-35kcal/kg Kcals Calculated 2205-2573kcal Protein: Using Current wt Protein g/k.2-1.4g/kg Protein Calculated 88-103g/kg Fluid: ml 2205-2573ml (1ml/kcal) Nutritional Problem 1. Problem Problem Increased kcal and prot needs related to Etiology hypermetabolic stated aeb Signs/Symptoms: pneumonia, COPD exacerbation, acute respiratory failure Intervention/Recommendation Comments 1. Continue with mech soft ground + necatar thick diet ( refer to subjective information in nutrition assessment). Continue to monitor and supervise during meal time. Expected Outcomes/Goals Expected Outcomes/Goals 1. PO intake to meet at least 75% of estimated nutritional needs. Physician Parameters for PEM Serum Albumin (g/dl) 3.5 - 5.0 (Normal)
[2016-09-24] MEDS: Atorvastatin Calcium 10 MG TAB PO SCH (20:54)
[2016-09-25] MEDS: Ipratropium Neb 0.5 mg/2.5 mL UD HHN SCH ×4 (00:31→19:03)
[2016-09-25] MEDS: Albuterol Nebulizer 2.5mg/3mL HHN SCH ×4 (07:06→19:04)
[2016-09-25] MEDS: Budesonide 0.5 Mg/2 mL Ud HHN SCH ×2 (07:07→19:03)
[2016-09-25 07:11] LABS: % BASOPHILS 0.3 % (0.0-2.0); % EOSINOPHILS 5.5 % (0.0-5.0); % LYMPHOCYTES 20.2 % (20.0-50.0); % MONOCYTES 7.1 % (2.0-10.0); % NEUTROPHILS 66.9 % (40.0-80.0); HEMATOCRIT 31.7 % (39.0-49.0); HEMOGLOBIN 10.9 gm/dL (12.6-17.4); MEAN CELL VOLUME 87.2 fl (80-99); MEAN CORPUSCULAR HEMOGLOBIN 29.9 pg (27.0-31.0); MEAN CORPUSCULAR HGB CONC 34.3 pg (28.0-36.0); MEAN PLATELET VOLUME 7.6 fl; NEUTROPHILE ABSOLUTE 4.2 Th/cmm (1.8-8.0); RED BLOOD COUNT 3.64 Mil/cmm (3.80-5.80); RED CELL DISTRIBUTION WIDTH 15.5 % (11.5-20.0); WHITE BLOOD COUNT 6.1 Th/cmm (4.8-10.8)
[2016-09-25 07:25] LABS: PLATELET COUNT 229 Th/cmm (150-400)
[2016-09-25 07:41] LABS: ALKALINE PHOSPHATASE 68 U/L (34-104); ANION GAP 4.2 (7.0-16.0); BILIRUBIN,TOTAL 0.4 mg/dL (0.3-1.0); BUN - UREA NITROGEN 16 mg/dL (7-25); BUN/CREATININE RATIO 26.7; CALCIUM SERUM 9.2 mg/dL (8.6-10.3); CARBON DIOXIDE 28.8 mEq/L (21.0-31.0); CHLORIDE 110 mEq/L (98-107); CREATININE - SERUM 0.6 mg/dL (0.7-1.3); GLUCOSE 69 mg/dL (70-105); SGOT 16 U/L (13-39); SGPT/ALT 23 U/L (7-52); SODIUM SERUM 139 mEq/L (136-145)
[2016-09-25] MEDS: Aspirin 81mg Chewable Tab PO SCH (09:02)
--- NOTE | 2016-09-25 15:11 | Internal Medicine Prog Note ---
Internal Medicine Subjective - Subjective Service Date: 09/25/16 Patient seen and examined:: with staff Patient is:: awake Per staff patient is:: no adverse event Internal Medicine Objective - Results Result Diagrams: 09/25/16 06:15 09/25/16 06:15 Recent Labs: Laboratory Last Values WBC 6.1 Th/cmm (4.8-10.8) 09/25/16 06:15 RBC 3.64 Mil/cmm (3.80-5.80) L 09/25/16 06:15 Hgb 10.9 gm/dL (12.6-17.4) L 09/25/16 06:15 Hct 31.7 % (39.0-49.0) L 09/25/16 06:15 MCV 87.2 fl (80-99) 09/25/16 06:15 MCH 29.9 pg (27.0-31.0) 09/25/16 06:15 MCHC Differential 34.3 pg (28.0-36.0) 09/25/16 06:15 RDW 15.5 % (11.5-20.0) 09/25/16 06:15 Plt Count 229 Th/cmm (150-400) D 09/25/16 06:15 MPV 7.6 fl 09/25/16 06:15 Neutrophils % 66.9 % (40.0-80.0) 09/25/16 06:15 Band Neutrophils % 1 % (0-10) 09/15/16 05:40 Lymphocytes % 20.2 % (20.0-50.0) 09/25/16 06:15 Monocytes % 7.1 % (2.0-10.0) 09/25/16 06:15 Eosinophils % 5.5 % (0.0-5.0) H 09/25/16 06:15 Basophils % 0.3 % (0.0-2.0) 09/25/16 06:15 Neutrophils (Manual) 86 % (40-80) H 09/15/16 05:40 Lymphocytes 9 % (20-50) L 09/15/16 05:40 Monocytes 4 % (2-10) 09/15/16 05:40 Eosinophils 1 % (0-5) 09/09/16 07:39 Basophils 1 % (0-3) 09/09/16 07:39 Platelet Estimate ADEQUATE (NORMAL) 09/15/16 05:40 Platelet Morphology NORMAL (NORMAL) 09/15/16 05:40 Poikilocytosis 1+ 09/08/16 06:41 Anisocytosis 1+ 09/13/16 06:22 Ovalocytes 1+ 09/08/16 06:41 RBC Morph Micro Appear NORMAL (NORMAL) 09/15/16 05:40 PT 9.8 SECONDS (9.5-11.5) 08/31/16 08:20 INR 0.99 (0.5-1.4) 08/31/16 08:20 Specimen Source Arterial 08/31/16 07:36 Sample Site Right Radial 08/31/16 07:36 pH 7.42 (7.35-7.45) 08/31/16 07:36 pCO2 42.0 mmHg (35.0-45.0) 08/31/16 07:36 pO2 53.0 mmHg (80.0-100.0) L 08/31/16 07:36 HCO3 27.2 mmol/L (20.0-26.0) H 08/31/16 07:36 Base Excess 2.4 mmol/L (-3.0-3.0) 08/31/16 07:36 O2 Saturation 88.0 % (92.0-100.0) L 08/31/16 07:36 Praveen Test YES 08/31/16 07:36 Vent Rate NA 08/31/16 07:36 Inspired O2 21 08/31/16 07:36 Tidal Volume NA 08/31/16 07:36 PEEP NA 08/31/16 07:36 Pressure (ins/psv/peep) NA 08/31/16 07:36 Critical Value SH 08/31/16 07:36 Sodium 139 mEq/L (136-145) 09/25/16 06:15 Potassium 4.0 mEq/L (3.5-5.1) 09/25/16 06:15 Chloride 110 mEq/L (98-107) H 09/25/16 06:15 Carbon Dioxide 28.8 mEq/L (21.0-31.0) 09/25/16 06:15 Anion Gap 4.2 (7.0-16.0) L 09/25/16 06:15 BUN 16 mg/dL (7-25) 09/25/16 06:15 Creatinine 0.6 mg/dL (0.7-1.3) L 09/25/16 06:15 Est GFR ( Amer) TNP 09/25/16 06:15 Est GFR (Non-Af Amer) TNP 09/25/16 06:15 BUN/Creatinine Ratio 26.7 09/25/16 06:15 Glucose 69 mg/dL (70-105) L 09/25/16 06:15 POC Glucose 126 MG/DL (70 - 105) H 09/17/16 23:57 Hemoglobin A1c % 5.8 % (4.0-6.0) 09/03/16 09:20 Whole Bld Lactic Acid 1.32 mmol/L (0.60-1.99) 08/31/16 08:20 Calcium 9.2 mg/dL (8.6-10.3) 09/25/16 06:15 Magnesium 2.2 mg/dL (1.9-2.7) 09/06/16 05:55 Total Bilirubin 0.4 mg/dL (0.3-1.0) 09/25/16 06:15 AST 16 U/L (13-39) 09/25/16 06:15 ALT 23 U/L (7-52) 09/25/16 06:15 Alkaline Phosphatase 68 U/L (34-104) 09/25/16 06:15 Troponin I 0.02 ng/mL (0.01-0.05) 08/31/16 08:20 B-Natriuretic Peptide 129.0 pg/mL (5.0-100.0) H 09/06/16 05:55 Total Protein 5.9 gm/dL (6.0-8.3) L 09/25/16 06:15 Albumin 3.0 gm/dL (4.2-5.5) L 09/25/16 06:15 Globulin 2.9 gm/dL 09/25/16 06:15 Albumin/Globulin Ratio 1.0 (1.0-1.8) 09/25/16 06:15 TSH 0.39 uIU/ml (0.34-5.60) 08/31/16 08:20 Urine Source CLEAN C 09/03/16 17:00 Urine Color YELLOW 09/03/16 17:00 Urine Clarity CLEAR (CLEAR) 09/03/16 17:00 Urine pH 6.5 09/03/16 17:00 Ur Specific [place] 1.015 (1.005-1.030) 09/03/16 17:00 Urine Protein NEGATIVE mg/dL (NEGATIVE) 09/03/16 17:00 Urine Glucose (UA) NEGATIVE mg/dL (NEGATIVE) 09/03/16 17:00 Urine Ketones NEGATIVE mg/dL (NEGATIVE) 09/03/16 17:00 Urine Blood NEGATIVE (NEGATIVE) 09/03/16 17:00 Urine Nitrate NEGATIVE (NEGATIVE) 09/03/16 17:00 Urine Bilirubin NEGATIVE (NEGATIVE) 09/03/16 17:00 Urine Urobilinogen 0.2 E.U./dL (0.2 - 1.0) 09/03/16 17:00 Ur Leukocyte Esterase NEGATIVE (NEGATIVE) 09/03/16 17:00 Urine RBC NONE SEEN /hpf (0-5) 09/03/16 17:00 Urine WBC NONE SEEN /hpf (0-5) 09/03/16 17:00 Ur Epithelial Cells NONE SEEN /lpf (FEW) 09/03/16 17:00 Urine Bacteria NONE SEEN /hpf (NONE SEEN) 09/03/16 17:00 Vancomycin Trough 17.3 ug/mL (10-20) 09/06/16 09:00 RPR NONREACTIVE (NONREACTIVE) 08/31/16 08:20 - Physical Exam Vitals and I&O: Vital Signs Temp 97.7 F 09/25/16 12:00 Pulse 64 09/25/16 12:00 Resp 18 09/25/16 12:00 BP 118/63 09/25/16 12:00 Pulse Ox 97 09/25/16 12:00 Intake & Output 09/24/16 09/25/16 09/25/16 18:59 06:59 18:59 Intake Total 650 Balance 650 Intake: Oral 650 Other: # Voids 3 # Bowel Movements 1 Active Medications: Current Medications Acetaminophen (Tylenol) 650 mg PO Q4HR PRN PRN Reason: Pain or Fever >101 Stop: 10/30/16 09:31 Acetylcysteine (Mucomyst 20%) 2 ml HHN Q6HRT [facility] Stop: 10/30/16 18:59 Last Admin: 09/25/16 07:05 Dose: 2 ml Albuterol Sulfate (Albuterol 2.5mg/3ml Neb Ud) 2.5 mg HHN QIDRT [facility] Stop: 10/30/16 12:59 Last Admin: 09/25/16 10:49 Dose: 2.5 mg Amiodarone HCl (Cordarone) 200 mg PO DAILY [facility] Stop: 10/31/16 08:59 Last Admin: 09/25/16 09:02 Dose: 200 mg Aspirin (Aspirin Chewable) 81 mg PO DAILY [facility] Stop: 10/31/16 08:59 Last Admin: 09/25/16 09:02 Dose: 81 mg Atorvastatin Calcium (Lipitor) 10 mg PO HS [facility] PRN Reason: Protocol Stop: 10/30/16 20:59 Last Admin: 09/24/16 20:54 Dose: 10 mg Bisacodyl (Dulcolax 10 Mg Supp) 10 mg RC Q72H PRN PRN Reason: Constipation Stop: 10/30/16 09:31 Budesonide (Pulmicort) 0.5 mg HHN Q12HRT [facility] Stop: 10/30/16 09:44 Last Admin: 09/25/16 07:07 Dose: 0.5 mg Buspirone HCl (Buspar) 10 mg PO TID [facility] Stop: 10/30/16 13:59 Last Admin: 09/25/16 13:25 Dose: 10 mg Donepezil HCl (Aricept) 10 mg PO HS [facility] Stop: 10/30/16 20:59 Last Admin: 09/24/16 20:54 Dose: 10 mg Guaifenesin (Mucinex) 600 mg PO Q12HR PRN PRN Reason: Cough or Congestion Stop: 11/04/16 23:19 Last Admin: 09/25/16 01:14 Dose: 600 mg Ipratropium [place] (Atrovent Neb 0.5mg/2.5ml) 0.5 mg HHN Q6HRT [facility] Stop: 11/02/16 00:59 Last Admin: 09/25/16 07:06 Dose: 0.5 mg Magnesium Hydroxide (Milk Of Magnesia) 30 ml PO HS PRN PRN Reason: Constipation Stop: 10/30/16 09:31 Magnesium Hydroxide (Milk Of Magnesia) 30 ml PO DAILY PRN PRN Reason: Constipation Stop: 11/13/16 12:41 Montelukast Sodium (Singulair) 10 mg PO HS [facility] Stop: 10/30/16 20:59 Last Admin: 09/24/16 20:54 Dose: 10 mg Olanzapine (Zyprexa) 15 mg PO DAILY [facility] PRN Reason: Protocol Stop: 10/31/16 08:59 Last Admin: 09/25/16 09:02 Dose: 15 mg Ondansetron HCl (Zofran) 4 mg IV Q8H PRN PRN Reason: Nausea / Vomiting Stop: 10/30/16 09:34 Sodium Phosphate (Fleet Enema) 135 ml RC PRN PRN PRN Reason: Constipation Stop: 10/30/16 09:31 Tamsulosin HCl (Flomax) 0.4 mg PO HS [facility] Stop: 10/30/16 20:59 Last Admin: 09/24/16 20:54 Dose: 0.4 mg General: alert HEENT: NC/AT, PERRLA Neck: Supple Lungs: CTAB Cardiovascular: RRR, Normal S1, Normal S2, without murmur Abdomen: soft non-tender, non-distended Extremities: clear - Procedures Procedures: Procedures Procedure Code Date ASSISTANCE WITH RESPIRATORY VENTILATION, <24 HRS, CPAP [id number] 06/29/16 EXCISION OF DUODENUM, ENDO, DIAGN [id number] 07/18/16 EXCISION OF ESOPHAGUS, ENDO, DIAGN [id number] 07/18/16 EXCISION OF STOMACH, ENDO, DIAGN [id number] 07/18/16 POS AIRWAY PRESSURE CPAP 15091 06/29/16 Internal Medicine Assmt/Plan - Assessment Assessment: Pneumonia Copd exacerbation Respiratory Failure htn dyslipidemia dementia - Plan Plan: placement issues bronchodilators continue ivabx supplemental o2 cpm Nutritional Asmnt/Malnutr-PDOC - Dietary Evaluation Malnutrition Findings (Please click <Entered> for more info): Nutritional Asmnt/Malnutrition Start: 09/02/16 14: 33 Text: Status: Complete Freq: Document 09/02/16 14:34 GSUN (Rec: 09/02/16 14:52 GSUN [email or web address]) Nutritional Asmnt/Malnutrition Patient General Information Nutritional Screening High Risk Screening Diagnosis Pneumonia, acute respiratory failure, COPD exacerbation Pertinent Medical Hx/Surgical Hx HTN, CAD, asthma, COPD, dyslipidemia, PUD, GERD, dementia Subjective Information 75yo M from SNF. Pt was alert, appeared anxious during visit . Pt was admitted here once in past July and twice in past June. Pt was ordered pureed + nectar thick during previous two stays. Most recent swallow eval 06/26/16 ST recommended mech soft + nectar thick. Discussed with pt regarding diet texture and tolerance, pt denied difficulties chewing/ swallowing and expressed preference for current mech soft ground. Encouraged pt to inform RN if any diet texture intolerance noted, pt understood. PO intake 100% all 3 meals yesterday 09/01. Unable to lower pt's head for bedscale due to pt appeared anxious. Current Diet Order/ Nutrition Support Mech soft ground + nectar thick Pertinent Medications Dulcolax, D5, MOM, Solu-Medrol , Vancomycin, Zofran, Fleet Enema Pertinent Labs Reviewed. Glucose 105, 143, 145 Nutritional Hx/Data Height 5 ft 8 in Height (Calculated Centimeters) 172.7 Current Weight (lbs) 162 lb Weight (Calculated Kilograms) 73.5 Weight (Calculated Grams) 84470.0 Usual body Weight (lbs) 161 [place] Body Weight 154lb ([place]) Recent Weight Change No Weight Status Approriate GI Symptoms Food Allergies No Cultural/Ethnic/Adventist Belief Unknown. Usual diet at home Unknown. Skin Integrity/Comment: Ruddy 11. Skin intact. Current %PO Good (75-100%) Estimated Nutritional Goals BEE in Kcals: Using Current wt Calories/Kcals/Kg 30-35kcal/kg Kcals Calculated 2205-2573kcal Protein: Using Current wt Protein g/k.2-1.4g/kg Protein Calculated 88-103g/kg Fluid: ml 2205-2573ml (1ml/kcal) Nutritional Problem 1. Problem Problem Increased kcal and prot needs related to Etiology hypermetabolic stated aeb Signs/Symptoms: pneumonia, COPD exacerbation, acute respiratory failure Intervention/Recommendation Comments 1. Continue with mech soft ground + necatar thick diet ( refer to subjective information in nutrition assessment). Continue to monitor and supervise during meal time. Expected Outcomes/Goals Expected Outcomes/Goals 1. PO intake to meet at least 75% of estimated nutritional needs. Physician Parameters for PEM Serum Albumin (g/dl) 3.5 - 5.0 (Normal)
[2016-09-25] MEDS: Atorvastatin Calcium 10 MG TAB PO SCH (20:16)
[2016-09-26] MEDS: Ipratropium Neb 0.5 mg/2.5 mL UD HHN SCH ×4 (01:06→18:57)
[2016-09-26] MEDS: Albuterol Nebulizer 2.5mg/3mL HHN SCH ×4 (07:10→18:58)
[2016-09-26] MEDS: Budesonide 0.5 Mg/2 mL Ud HHN SCH ×2 (07:10→18:57)
[2016-09-26] MEDS: Aspirin 81mg Chewable Tab PO SCH (09:43)
--- NOTE | 2016-09-26 12:21 | Internal Medicine Prog Note ---
Internal Medicine Subjective - Subjective Service Date: 09/26/16 Patient seen and examined:: with staff Patient is:: awake Per staff patient is:: no adverse event Internal Medicine Objective - Results Result Diagrams: 09/25/16 06:15 09/25/16 06:15 Recent Labs: Laboratory Last Values WBC 6.1 Th/cmm (4.8-10.8) 09/25/16 06:15 RBC 3.64 Mil/cmm (3.80-5.80) L 09/25/16 06:15 Hgb 10.9 gm/dL (12.6-17.4) L 09/25/16 06:15 Hct 31.7 % (39.0-49.0) L 09/25/16 06:15 MCV 87.2 fl (80-99) 09/25/16 06:15 MCH 29.9 pg (27.0-31.0) 09/25/16 06:15 MCHC Differential 34.3 pg (28.0-36.0) 09/25/16 06:15 RDW 15.5 % (11.5-20.0) 09/25/16 06:15 Plt Count 229 Th/cmm (150-400) D 09/25/16 06:15 MPV 7.6 fl 09/25/16 06:15 Neutrophils % 66.9 % (40.0-80.0) 09/25/16 06:15 Band Neutrophils % 1 % (0-10) 09/15/16 05:40 Lymphocytes % 20.2 % (20.0-50.0) 09/25/16 06:15 Monocytes % 7.1 % (2.0-10.0) 09/25/16 06:15 Eosinophils % 5.5 % (0.0-5.0) H 09/25/16 06:15 Basophils % 0.3 % (0.0-2.0) 09/25/16 06:15 Neutrophils (Manual) 86 % (40-80) H 09/15/16 05:40 Lymphocytes 9 % (20-50) L 09/15/16 05:40 Monocytes 4 % (2-10) 09/15/16 05:40 Eosinophils 1 % (0-5) 09/09/16 07:39 Basophils 1 % (0-3) 09/09/16 07:39 Platelet Estimate ADEQUATE (NORMAL) 09/15/16 05:40 Platelet Morphology NORMAL (NORMAL) 09/15/16 05:40 Poikilocytosis 1+ 09/08/16 06:41 Anisocytosis 1+ 09/13/16 06:22 Ovalocytes 1+ 09/08/16 06:41 RBC Morph Micro Appear NORMAL (NORMAL) 09/15/16 05:40 PT 9.8 SECONDS (9.5-11.5) 08/31/16 08:20 INR 0.99 (0.5-1.4) 08/31/16 08:20 Specimen Source Arterial 08/31/16 07:36 Sample Site Right Radial 08/31/16 07:36 pH 7.42 (7.35-7.45) 08/31/16 07:36 pCO2 42.0 mmHg (35.0-45.0) 08/31/16 07:36 pO2 53.0 mmHg (80.0-100.0) L 08/31/16 07:36 HCO3 27.2 mmol/L (20.0-26.0) H 08/31/16 07:36 Base Excess 2.4 mmol/L (-3.0-3.0) 08/31/16 07:36 O2 Saturation 88.0 % (92.0-100.0) L 08/31/16 07:36 Praveen Test YES 08/31/16 07:36 Vent Rate NA 08/31/16 07:36 Inspired O2 21 08/31/16 07:36 Tidal Volume NA 08/31/16 07:36 PEEP NA 08/31/16 07:36 Pressure (ins/psv/peep) NA 08/31/16 07:36 Critical Value SH 08/31/16 07:36 Sodium 139 mEq/L (136-145) 09/25/16 06:15 Potassium 4.0 mEq/L (3.5-5.1) 09/25/16 06:15 Chloride 110 mEq/L (98-107) H 09/25/16 06:15 Carbon Dioxide 28.8 mEq/L (21.0-31.0) 09/25/16 06:15 Anion Gap 4.2 (7.0-16.0) L 09/25/16 06:15 BUN 16 mg/dL (7-25) 09/25/16 06:15 Creatinine 0.6 mg/dL (0.7-1.3) L 09/25/16 06:15 Est GFR ( Amer) TNP 09/25/16 06:15 Est GFR (Non-Af Amer) TNP 09/25/16 06:15 BUN/Creatinine Ratio 26.7 09/25/16 06:15 Glucose 69 mg/dL (70-105) L 09/25/16 06:15 POC Glucose 126 MG/DL (70 - 105) H 09/17/16 23:57 Hemoglobin A1c % 5.8 % (4.0-6.0) 09/03/16 09:20 Whole Bld Lactic Acid 1.32 mmol/L (0.60-1.99) 08/31/16 08:20 Calcium 9.2 mg/dL (8.6-10.3) 09/25/16 06:15 Magnesium 2.2 mg/dL (1.9-2.7) 09/06/16 05:55 Total Bilirubin 0.4 mg/dL (0.3-1.0) 09/25/16 06:15 AST 16 U/L (13-39) 09/25/16 06:15 ALT 23 U/L (7-52) 09/25/16 06:15 Alkaline Phosphatase 68 U/L (34-104) 09/25/16 06:15 Troponin I 0.02 ng/mL (0.01-0.05) 08/31/16 08:20 B-Natriuretic Peptide 129.0 pg/mL (5.0-100.0) H 09/06/16 05:55 Total Protein 5.9 gm/dL (6.0-8.3) L 09/25/16 06:15 Albumin 3.0 gm/dL (4.2-5.5) L 09/25/16 06:15 Globulin 2.9 gm/dL 09/25/16 06:15 Albumin/Globulin Ratio 1.0 (1.0-1.8) 09/25/16 06:15 TSH 0.39 uIU/ml (0.34-5.60) 08/31/16 08:20 Urine Source CLEAN C 09/03/16 17:00 Urine Color YELLOW 09/03/16 17:00 Urine Clarity CLEAR (CLEAR) 09/03/16 17:00 Urine pH 6.5 09/03/16 17:00 Ur Specific [place] 1.015 (1.005-1.030) 09/03/16 17:00 Urine Protein NEGATIVE mg/dL (NEGATIVE) 09/03/16 17:00 Urine Glucose (UA) NEGATIVE mg/dL (NEGATIVE) 09/03/16 17:00 Urine Ketones NEGATIVE mg/dL (NEGATIVE) 09/03/16 17:00 Urine Blood NEGATIVE (NEGATIVE) 09/03/16 17:00 Urine Nitrate NEGATIVE (NEGATIVE) 09/03/16 17:00 Urine Bilirubin NEGATIVE (NEGATIVE) 09/03/16 17:00 Urine Urobilinogen 0.2 E.U./dL (0.2 - 1.0) 09/03/16 17:00 Ur Leukocyte Esterase NEGATIVE (NEGATIVE) 09/03/16 17:00 Urine RBC NONE SEEN /hpf (0-5) 09/03/16 17:00 Urine WBC NONE SEEN /hpf (0-5) 09/03/16 17:00 Ur Epithelial Cells NONE SEEN /lpf (FEW) 09/03/16 17:00 Urine Bacteria NONE SEEN /hpf (NONE SEEN) 09/03/16 17:00 Vancomycin Trough 17.3 ug/mL (10-20) 09/06/16 09:00 RPR NONREACTIVE (NONREACTIVE) 08/31/16 08:20 - Physical Exam Vitals and I&O: Vital Signs Temp 97 F 09/26/16 04:00 Pulse 66 09/26/16 11:02 Resp 20 09/26/16 11:02 BP 117/61 09/26/16 04:00 Pulse Ox 98 09/26/16 11:02 Intake & Output 09/25/16 09/26/16 09/26/16 18:59 06:59 18:59 Intake Total 800 350 Balance 800 350 Weight (lbs) 160 lb Intake: Oral 800 350 Other: # Voids 3 3 # Bowel Movements 1 Active Medications: Current Medications Acetaminophen (Tylenol) 650 mg PO Q4HR PRN PRN Reason: Pain or Fever >101 Stop: 10/30/16 09:31 Acetylcysteine (Mucomyst 20%) 2 ml HHN Q6HRT [facility] Stop: 10/30/16 18:59 Last Admin: 09/26/16 07:11 Dose: 2 ml Albuterol Sulfate (Albuterol 2.5mg/3ml Neb Ud) 2.5 mg HHN QIDRT [facility] Stop: 10/30/16 12:59 Last Admin: 09/26/16 11:01 Dose: 2.5 mg Amiodarone HCl (Cordarone) 200 mg PO DAILY [facility] Stop: 10/31/16 08:59 Last Admin: 09/26/16 09:42 Dose: 200 mg Aspirin (Aspirin Chewable) 81 mg PO DAILY [facility] Stop: 10/31/16 08:59 Last Admin: 09/26/16 09:43 Dose: 81 mg Atorvastatin Calcium (Lipitor) 10 mg PO HS [facility] PRN Reason: Protocol Stop: 10/30/16 20:59 Last Admin: 09/25/16 20:16 Dose: 10 mg Bisacodyl (Dulcolax 10 Mg Supp) 10 mg RC Q72H PRN PRN Reason: Constipation Stop: 10/30/16 09:31 Budesonide (Pulmicort) 0.5 mg HHN Q12HRT [facility] Stop: 10/30/16 09:44 Last Admin: 09/26/16 07:10 Dose: 0.5 mg Buspirone HCl (Buspar) 10 mg PO TID [facility] Stop: 10/30/16 13:59 Last Admin: 09/26/16 09:43 Dose: 10 mg Donepezil HCl (Aricept) 10 mg PO HS [facility] Stop: 10/30/16 20:59 Last Admin: 09/25/16 20:16 Dose: 10 mg Guaifenesin (Mucinex) 600 mg PO Q12HR PRN PRN Reason: Cough or Congestion Stop: 11/04/16 23:19 Last Admin: 09/25/16 01:14 Dose: 600 mg Ipratropium [place] (Atrovent Neb 0.5mg/2.5ml) 0.5 mg HHN Q6HRT [facility] Stop: 11/02/16 00:59 Last Admin: 09/26/16 07:11 Dose: 0.5 mg Magnesium Hydroxide (Milk Of Magnesia) 30 ml PO HS PRN PRN Reason: Constipation Stop: 10/30/16 09:31 Magnesium Hydroxide (Milk Of Magnesia) 30 ml PO DAILY PRN PRN Reason: Constipation Stop: 11/13/16 12:41 Montelukast Sodium (Singulair) 10 mg PO HS [facility] Stop: 10/30/16 20:59 Last Admin: 09/25/16 20:17 Dose: 10 mg Olanzapine (Zyprexa) 15 mg PO DAILY [facility] PRN Reason: Protocol Stop: 10/31/16 08:59 Last Admin: 09/26/16 09:42 Dose: 15 mg Ondansetron HCl (Zofran) 4 mg IV Q8H PRN PRN Reason: Nausea / Vomiting Stop: 10/30/16 09:34 Sodium Phosphate (Fleet Enema) 135 ml RC PRN PRN PRN Reason: Constipation Stop: 10/30/16 09:31 Tamsulosin HCl (Flomax) 0.4 mg PO HS [facility] Stop: 10/30/16 20:59 Last Admin: 09/25/16 20:17 Dose: 0.4 mg General: alert HEENT: NC/AT, PERRLA Neck: Supple Lungs: CTAB Cardiovascular: RRR, Normal S1, Normal S2, without murmur Abdomen: soft non-tender, non-distended, positive bowel sound Neurological: no change - Procedures Procedures: Procedures Procedure Code Date ASSISTANCE WITH RESPIRATORY VENTILATION, <24 HRS, CPAP 3F38857 06/29/16 EXCISION OF DUODENUM, ENDO, DIAGN [id number] 07/18/16 EXCISION OF ESOPHAGUS, ENDO, DIAGN [id number] 07/18/16 EXCISION OF STOMACH, ENDO, DIAGN [id number] 07/18/16 POS AIRWAY PRESSURE CPAP 12298 06/29/16 Internal Medicine Assmt/Plan - Assessment Assessment: Pneumonia Copd exacerbation Respiratory Failure htn dyslipidemia dementia - Plan Plan: awaiting for snf placement bronchodilators continue ivabx supplemental o2 cpm Nutritional Asmnt/Malnutr-PDOC - Dietary Evaluation Malnutrition Findings (Please click <Entered> for more info): Nutritional Asmnt/Malnutrition Start: 09/02/16 14: 33 Text: Status: Complete Freq: Document 09/02/16 14:34 GSUN (Rec: 09/02/16 14:52 [email or web address] [id number]) Nutritional Asmnt/Malnutrition Patient General Information Nutritional Screening High Risk Screening Diagnosis Pneumonia, acute respiratory failure, COPD exacerbation Pertinent Medical Hx/Surgical Hx HTN, CAD, asthma, COPD, dyslipidemia, PUD, GERD, dementia Subjective Information 75yo M from SNF. Pt was alert, appeared anxious during visit . Pt was admitted here once in past July and twice in past June. Pt was ordered pureed + nectar thick during previous two stays. Most recent swallow eval 06/26/16 ST recommended mech soft + nectar thick. Discussed with pt regarding diet texture and tolerance, pt denied difficulties chewing/ swallowing and expressed preference for current mech soft ground. Encouraged pt to inform RN if any diet texture intolerance noted, pt understood. PO intake 100% all 3 meals yesterday 09/01. Unable to lower pt's head for bedscale due to pt appeared anxious. Current Diet Order/ Nutrition Support Mech soft ground + nectar thick Pertinent Medications Dulcolax, D5, MOM, Solu-Medrol , Vancomycin, Zofran, Fleet Enema Pertinent Labs Reviewed. Glucose 105, 143, 145 Nutritional Hx/Data Height 5 ft 8 in Height (Calculated Centimeters) 172.7 Current Weight (lbs) 162 lb Weight (Calculated Kilograms) 73.5 Weight (Calculated Grams) 12685.0 Usual body Weight (lbs) 161 [place] Body Weight 154lb ([place]) Recent Weight Change No Weight Status Approriate GI Symptoms Food Allergies No Cultural/Ethnic/[employer]ist Belief Unknown. Usual diet at home Unknown. Skin Integrity/Comment: Ruddy 11. Skin intact. Current %PO Good (75-100%) Estimated Nutritional Goals BEE in Kcals: Using Current wt Calories/Kcals/Kg 30-35kcal/kg Kcals Calculated 2205-2573kcal Protein: Using Current wt Protein g/k.2-1.4g/kg Protein Calculated 88-103g/kg Fluid: ml 2205-2573ml (1ml/kcal) Nutritional Problem 1. Problem Problem Increased kcal and prot needs related to Etiology hypermetabolic stated aeb Signs/Symptoms: pneumonia, COPD exacerbation, acute respiratory failure Intervention/Recommendation Comments 1. Continue with mech soft ground + necatar thick diet ( refer to subjective information in nutrition assessment). Continue to monitor and supervise during meal time. Expected Outcomes/Goals Expected Outcomes/Goals 1. PO intake to meet at least 75% of estimated nutritional needs. Physician Parameters for PEM Serum Albumin (g/dl) 3.5 - 5.0 (Normal)
--- NOTE | 2016-09-26 14:40 | Diagnostic Imaging Report ---
Portable chest x-ray HISTORY: Shortness of breath Compared to prior exam of September 24, 2016, there is a poor inspiration with elevation left hemidiaphragm. Allowing for these factors, no definite focal processes are seen. Surgical changes noted. IMPRESSION: 1. Allowing for a poor inspiration and elevation of the left hemidiaphragm, no acute focal pulmonary processes are seen.
[2016-09-26] MEDS: Atorvastatin Calcium 10 MG TAB PO SCH (20:26)
[2016-09-27] MEDS: Albuterol Nebulizer 2.5mg/3mL HHN SCH ×4 (07:34→19:07)
[2016-09-27] MEDS: Budesonide 0.5 Mg/2 mL Ud HHN SCH ×2 (07:34→19:07)
[2016-09-27] MEDS: Aspirin 81mg Chewable Tab PO SCH (09:04)
--- NOTE | 2016-09-27 13:27 | Internal Medicine Prog Note ---
Internal Medicine Subjective - Subjective Service Date: 09/27/16 Patient seen and examined:: with staff Patient is:: awake Per staff patient is:: no adverse event Internal Medicine Objective - Results Result Diagrams: 09/25/16 06:15 09/25/16 06:15 Recent Labs: Laboratory Last Values WBC 6.1 Th/cmm (4.8-10.8) 09/25/16 06:15 RBC 3.64 Mil/cmm (3.80-5.80) L 09/25/16 06:15 Hgb 10.9 gm/dL (12.6-17.4) L 09/25/16 06:15 Hct 31.7 % (39.0-49.0) L 09/25/16 06:15 MCV 87.2 fl (80-99) 09/25/16 06:15 MCH 29.9 pg (27.0-31.0) 09/25/16 06:15 MCHC Differential 34.3 pg (28.0-36.0) 09/25/16 06:15 RDW 15.5 % (11.5-20.0) 09/25/16 06:15 Plt Count 229 Th/cmm (150-400) D 09/25/16 06:15 MPV 7.6 fl 09/25/16 06:15 Neutrophils % 66.9 % (40.0-80.0) 09/25/16 06:15 Band Neutrophils % 1 % (0-10) 09/15/16 05:40 Lymphocytes % 20.2 % (20.0-50.0) 09/25/16 06:15 Monocytes % 7.1 % (2.0-10.0) 09/25/16 06:15 Eosinophils % 5.5 % (0.0-5.0) H 09/25/16 06:15 Basophils % 0.3 % (0.0-2.0) 09/25/16 06:15 Neutrophils (Manual) 86 % (40-80) H 09/15/16 05:40 Lymphocytes 9 % (20-50) L 09/15/16 05:40 Monocytes 4 % (2-10) 09/15/16 05:40 Eosinophils 1 % (0-5) 09/09/16 07:39 Basophils 1 % (0-3) 09/09/16 07:39 Platelet Estimate ADEQUATE (NORMAL) 09/15/16 05:40 Platelet Morphology NORMAL (NORMAL) 09/15/16 05:40 Poikilocytosis 1+ 09/08/16 06:41 Anisocytosis 1+ 09/13/16 06:22 Ovalocytes 1+ 09/08/16 06:41 RBC Morph Micro Appear NORMAL (NORMAL) 09/15/16 05:40 PT 9.8 SECONDS (9.5-11.5) 08/31/16 08:20 INR 0.99 (0.5-1.4) 08/31/16 08:20 Specimen Source Arterial 08/31/16 07:36 Sample Site Right Radial 08/31/16 07:36 pH 7.42 (7.35-7.45) 08/31/16 07:36 pCO2 42.0 mmHg (35.0-45.0) 08/31/16 07:36 pO2 53.0 mmHg (80.0-100.0) L 08/31/16 07:36 HCO3 27.2 mmol/L (20.0-26.0) H 08/31/16 07:36 Base Excess 2.4 mmol/L (-3.0-3.0) 08/31/16 07:36 O2 Saturation 88.0 % (92.0-100.0) L 08/31/16 07:36 Praveen Test YES 08/31/16 07:36 Vent Rate NA 08/31/16 07:36 Inspired O2 21 08/31/16 07:36 Tidal Volume NA 08/31/16 07:36 PEEP NA 08/31/16 07:36 Pressure (ins/psv/peep) NA 08/31/16 07:36 Critical Value SH 08/31/16 07:36 Sodium 139 mEq/L (136-145) 09/25/16 06:15 Potassium 4.0 mEq/L (3.5-5.1) 09/25/16 06:15 Chloride 110 mEq/L (98-107) H 09/25/16 06:15 Carbon Dioxide 28.8 mEq/L (21.0-31.0) 09/25/16 06:15 Anion Gap 4.2 (7.0-16.0) L 09/25/16 06:15 BUN 16 mg/dL (7-25) 09/25/16 06:15 Creatinine 0.6 mg/dL (0.7-1.3) L 09/25/16 06:15 Est GFR ( Amer) TNP 09/25/16 06:15 Est GFR (Non-Af Amer) TNP 09/25/16 06:15 BUN/Creatinine Ratio 26.7 09/25/16 06:15 Glucose 69 mg/dL (70-105) L 09/25/16 06:15 POC Glucose 126 MG/DL (70 - 105) H 09/17/16 23:57 Hemoglobin A1c % 5.8 % (4.0-6.0) 09/03/16 09:20 Whole Bld Lactic Acid 1.32 mmol/L (0.60-1.99) 08/31/16 08:20 Calcium 9.2 mg/dL (8.6-10.3) 09/25/16 06:15 Magnesium 2.2 mg/dL (1.9-2.7) 09/06/16 05:55 Total Bilirubin 0.4 mg/dL (0.3-1.0) 09/25/16 06:15 AST 16 U/L (13-39) 09/25/16 06:15 ALT 23 U/L (7-52) 09/25/16 06:15 Alkaline Phosphatase 68 U/L (34-104) 09/25/16 06:15 Troponin I 0.02 ng/mL (0.01-0.05) 08/31/16 08:20 B-Natriuretic Peptide 129.0 pg/mL (5.0-100.0) H 09/06/16 05:55 Total Protein 5.9 gm/dL (6.0-8.3) L 09/25/16 06:15 Albumin 3.0 gm/dL (4.2-5.5) L 09/25/16 06:15 Globulin 2.9 gm/dL 09/25/16 06:15 Albumin/Globulin Ratio 1.0 (1.0-1.8) 09/25/16 06:15 TSH 0.39 uIU/ml (0.34-5.60) 08/31/16 08:20 Urine Source CLEAN C 09/03/16 17:00 Urine Color YELLOW 09/03/16 17:00 Urine Clarity CLEAR (CLEAR) 09/03/16 17:00 Urine pH 6.5 09/03/16 17:00 Ur Specific [place] 1.015 (1.005-1.030) 09/03/16 17:00 Urine Protein NEGATIVE mg/dL (NEGATIVE) 09/03/16 17:00 Urine Glucose (UA) NEGATIVE mg/dL (NEGATIVE) 09/03/16 17:00 Urine Ketones NEGATIVE mg/dL (NEGATIVE) 09/03/16 17:00 Urine Blood NEGATIVE (NEGATIVE) 09/03/16 17:00 Urine Nitrate NEGATIVE (NEGATIVE) 09/03/16 17:00 Urine Bilirubin NEGATIVE (NEGATIVE) 09/03/16 17:00 Urine Urobilinogen 0.2 E.U./dL (0.2 - 1.0) 09/03/16 17:00 Ur Leukocyte Esterase NEGATIVE (NEGATIVE) 09/03/16 17:00 Urine RBC NONE SEEN /hpf (0-5) 09/03/16 17:00 Urine WBC NONE SEEN /hpf (0-5) 09/03/16 17:00 Ur Epithelial Cells NONE SEEN /lpf (FEW) 09/03/16 17:00 Urine Bacteria NONE SEEN /hpf (NONE SEEN) 09/03/16 17:00 Vancomycin Trough 17.3 ug/mL (10-20) 09/06/16 09:00 RPR NONREACTIVE (NONREACTIVE) 08/31/16 08:20 - Physical Exam Vitals and I&O: Vital Signs Temp 98.0 F 09/27/16 08:00 Pulse 99 09/27/16 09:03 Resp 18 09/27/16 10:08 BP 144/66 09/27/16 08:00 Pulse Ox 99 09/27/16 08:00 Intake & Output 09/26/16 09/27/16 09/27/16 18:59 06:59 18:59 Intake Total 1080 350 Balance 1080 350 Intake: Oral 1080 350 Other: # Voids 5 2 Active Medications: Current Medications Acetaminophen (Tylenol) 650 mg PO Q4HR PRN PRN Reason: Pain or Fever >101 Stop: 10/30/16 09:31 Acetylcysteine (Mucomyst 20%) 2 ml HHN Q6HRT [facility] Stop: 10/30/16 18:59 Last Admin: 09/27/16 07:51 Dose: 2 ml Albuterol Sulfate (Albuterol 2.5mg/3ml Neb Ud) 2.5 mg HHN QIDRT [facility] Stop: 10/30/16 12:59 Last Admin: 09/27/16 10:50 Dose: 2.5 mg Amiodarone HCl (Cordarone) 200 mg PO DAILY [facility] Stop: 10/31/16 08:59 Last Admin: 09/27/16 09:03 Dose: 200 mg Aspirin (Aspirin Chewable) 81 mg PO DAILY [facility] Stop: 10/31/16 08:59 Last Admin: 09/27/16 09:04 Dose: 81 mg Atorvastatin Calcium (Lipitor) 10 mg PO HS [facility] PRN Reason: Protocol Stop: 10/30/16 20:59 Last Admin: 09/26/16 20:26 Dose: 10 mg Bisacodyl (Dulcolax 10 Mg Supp) 10 mg RC Q72H PRN PRN Reason: Constipation Stop: 10/30/16 09:31 Budesonide (Pulmicort) 0.5 mg HHN Q12HRT [facility] Stop: 10/30/16 09:44 Last Admin: 09/27/16 07:34 Dose: 0.5 mg Buspirone HCl (Buspar) 10 mg PO TID [facility] Stop: 10/30/16 13:59 Last Admin: 09/27/16 09:04 Dose: 10 mg Donepezil HCl (Aricept) 10 mg PO HS [facility] Stop: 10/30/16 20:59 Last Admin: 09/26/16 20:26 Dose: 10 mg Guaifenesin (Mucinex) 600 mg PO Q12HR PRN PRN Reason: Cough or Congestion Stop: 11/04/16 23:19 Last Admin: 09/25/16 01:14 Dose: 600 mg Ipratropium [place] (Atrovent Neb 0.5mg/2.5ml) 0.5 mg HHN Q6HRT [facility] Stop: 11/02/16 00:59 Last Admin: 09/26/16 18:57 Dose: 0.5 mg Magnesium Hydroxide (Milk Of Magnesia) 30 ml PO HS PRN PRN Reason: Constipation Stop: 10/30/16 09:31 Magnesium Hydroxide (Milk Of Magnesia) 30 ml PO DAILY PRN PRN Reason: Constipation Stop: 11/13/16 12:41 Montelukast Sodium (Singulair) 10 mg PO HS [facility] Stop: 10/30/16 20:59 Last Admin: 09/26/16 20:26 Dose: 10 mg Olanzapine (Zyprexa) 15 mg PO DAILY [facility] PRN Reason: Protocol Stop: 10/31/16 08:59 Last Admin: 09/27/16 09:03 Dose: 15 mg Ondansetron HCl (Zofran) 4 mg IV Q8H PRN PRN Reason: Nausea / Vomiting Stop: 10/30/16 09:34 Sodium Phosphate (Fleet Enema) 135 ml RC PRN PRN PRN Reason: Constipation Stop: 10/30/16 09:31 Tamsulosin HCl (Flomax) 0.4 mg PO HS [facility] Stop: 10/30/16 20:59 Last Admin: 09/26/16 20:26 Dose: 0.4 mg General: alert HEENT: NC/AT, PERRLA Neck: Supple Lungs: CTAB Cardiovascular: RRR, Normal S1, Normal S2, without murmur Abdomen: non-distended, positive bowel sound, + fluid wave Neurological: no change - Procedures Procedures: Procedures Procedure Code Date ASSISTANCE WITH RESPIRATORY VENTILATION, <24 HRS, CPAP [id number] 06/29/16 EXCISION OF DUODENUM, ENDO, DIAGN [id number] 07/18/16 EXCISION OF ESOPHAGUS, ENDO, DIAGN [id number] 07/18/16 EXCISION OF STOMACH, ENDO, DIAGN [id number] 07/18/16 POS AIRWAY PRESSURE CPAP 84234 06/29/16 Internal Medicine Assmt/Plan - Assessment Assessment: Pneumonia Copd exacerbation Respiratory Failure htn dyslipidemia dementia - Plan Plan: awaiting for snf placement bronchodilators continue ivabx supplemental o2 cpm Nutritional Asmnt/Malnutr-PDOC - Dietary Evaluation Malnutrition Findings (Please click <Entered> for more info): Nutritional Asmnt/Malnutrition Start: 09/02/16 14: 33 Text: Status: Complete Freq: Document 09/02/16 14:34 GSUN (Rec: 09/02/16 14:52 GSEFRAÍN [id number]) Nutritional Asmnt/Malnutrition Patient General Information Nutritional Screening High Risk Screening Diagnosis Pneumonia, acute respiratory failure, COPD exacerbation Pertinent Medical Hx/Surgical Hx HTN, CAD, asthma, COPD, dyslipidemia, PUD, GERD, dementia Subjective Information 75yo M from SNF. Pt was alert, appeared anxious during visit . Pt was admitted here once in past July and twice in past June. Pt was ordered pureed + nectar thick during previous two stays. Most recent swallow eval 06/26/16 ST recommended mech soft + nectar thick. Discussed with pt regarding diet texture and tolerance, pt denied difficulties chewing/ swallowing and expressed preference for current mech soft ground. Encouraged pt to inform RN if any diet texture intolerance noted, pt understood. PO intake 100% all 3 meals yesterday 09/01. Unable to lower pt's head for bedscale due to pt appeared anxious. Current Diet Order/ Nutrition Support Mech soft ground + nectar thick Pertinent Medications Dulcolax, D5, MOM, Solu-Medrol , Vancomycin, Zofran, Fleet Enema Pertinent Labs Reviewed. Glucose 105, 143, 145 Nutritional Hx/Data Height 5 ft 8 in Height (Calculated Centimeters) 172.7 Current Weight (lbs) 162 lb Weight (Calculated Kilograms) 73.5 Weight (Calculated Grams) 51696.0 Usual body Weight (lbs) 161 [place] Body Weight 154lb ([place]) Recent Weight Change No Weight Status Approriate GI Symptoms Food Allergies No Cultural/Ethnic/Jewish Belief Unknown. Usual diet at home Unknown. Skin Integrity/Comment: Ruddy 11. Skin intact. Current %PO Good (75-100%) Estimated Nutritional Goals BEE in Kcals: Using Current wt Calories/Kcals/Kg 30-35kcal/kg Kcals Calculated 2205-2573kcal Protein: Using Current wt Protein g/k.2-1.4g/kg Protein Calculated 88-103g/kg Fluid: ml 2205-2573ml (1ml/kcal) Nutritional Problem 1. Problem Problem Increased kcal and prot needs related to Etiology hypermetabolic stated aeb Signs/Symptoms: pneumonia, COPD exacerbation, acute respiratory failure Intervention/Recommendation Comments 1. Continue with mech soft ground + necatar thick diet ( refer to subjective information in nutrition assessment). Continue to monitor and supervise during meal time. Expected Outcomes/Goals Expected Outcomes/Goals 1. PO intake to meet at least 75% of estimated nutritional needs. Physician Parameters for PEM Serum Albumin (g/dl) 3.5 - 5.0 (Normal)
[2016-09-27] MEDS: Ipratropium Neb 0.5 mg/2.5 mL UD HHN SCH (19:10)
[2016-09-27] MEDS: Atorvastatin Calcium 10 MG TAB PO SCH (21:26)
[2016-09-28] MEDS: Ipratropium Neb 0.5 mg/2.5 mL UD HHN SCH ×4 (02:57→19:41)
[2016-09-28] MEDS: Budesonide 0.5 Mg/2 mL Ud HHN SCH ×2 (07:34→19:41)
[2016-09-28] MEDS: Albuterol Nebulizer 2.5mg/3mL HHN SCH ×4 (07:34→19:41)
[2016-09-28] MEDS: Aspirin 81mg Chewable Tab PO SCH (09:36)
--- NOTE | 2016-09-28 16:30 | Internal Medicine Prog Note ---
Internal Medicine Subjective - Subjective Service Date: 09/28/16 Patient seen and examined:: with staff Patient is:: awake Per staff patient is:: no adverse event Internal Medicine Objective - Results Result Diagrams: 09/25/16 06:15 09/25/16 06:15 Recent Labs: Laboratory Last Values WBC 6.1 Th/cmm (4.8-10.8) 09/25/16 06:15 RBC 3.64 Mil/cmm (3.80-5.80) L 09/25/16 06:15 Hgb 10.9 gm/dL (12.6-17.4) L 09/25/16 06:15 Hct 31.7 % (39.0-49.0) L 09/25/16 06:15 MCV 87.2 fl (80-99) 09/25/16 06:15 MCH 29.9 pg (27.0-31.0) 09/25/16 06:15 MCHC Differential 34.3 pg (28.0-36.0) 09/25/16 06:15 RDW 15.5 % (11.5-20.0) 09/25/16 06:15 Plt Count 229 Th/cmm (150-400) D 09/25/16 06:15 MPV 7.6 fl 09/25/16 06:15 Neutrophils % 66.9 % (40.0-80.0) 09/25/16 06:15 Band Neutrophils % 1 % (0-10) 09/15/16 05:40 Lymphocytes % 20.2 % (20.0-50.0) 09/25/16 06:15 Monocytes % 7.1 % (2.0-10.0) 09/25/16 06:15 Eosinophils % 5.5 % (0.0-5.0) H 09/25/16 06:15 Basophils % 0.3 % (0.0-2.0) 09/25/16 06:15 Neutrophils (Manual) 86 % (40-80) H 09/15/16 05:40 Lymphocytes 9 % (20-50) L 09/15/16 05:40 Monocytes 4 % (2-10) 09/15/16 05:40 Eosinophils 1 % (0-5) 09/09/16 07:39 Basophils 1 % (0-3) 09/09/16 07:39 Platelet Estimate ADEQUATE (NORMAL) 09/15/16 05:40 Platelet Morphology NORMAL (NORMAL) 09/15/16 05:40 Poikilocytosis 1+ 09/08/16 06:41 Anisocytosis 1+ 09/13/16 06:22 Ovalocytes 1+ 09/08/16 06:41 RBC Morph Micro Appear NORMAL (NORMAL) 09/15/16 05:40 PT 9.8 SECONDS (9.5-11.5) 08/31/16 08:20 INR 0.99 (0.5-1.4) 08/31/16 08:20 Specimen Source Arterial 08/31/16 07:36 Sample Site Right Radial 08/31/16 07:36 pH 7.42 (7.35-7.45) 08/31/16 07:36 pCO2 42.0 mmHg (35.0-45.0) 08/31/16 07:36 pO2 53.0 mmHg (80.0-100.0) L 08/31/16 07:36 HCO3 27.2 mmol/L (20.0-26.0) H 08/31/16 07:36 Base Excess 2.4 mmol/L (-3.0-3.0) 08/31/16 07:36 O2 Saturation 88.0 % (92.0-100.0) L 08/31/16 07:36 Praveen Test YES 08/31/16 07:36 Vent Rate NA 08/31/16 07:36 Inspired O2 21 08/31/16 07:36 Tidal Volume NA 08/31/16 07:36 PEEP NA 08/31/16 07:36 Pressure (ins/psv/peep) NA 08/31/16 07:36 Critical Value SH 08/31/16 07:36 Sodium 139 mEq/L (136-145) 09/25/16 06:15 Potassium 4.0 mEq/L (3.5-5.1) 09/25/16 06:15 Chloride 110 mEq/L (98-107) H 09/25/16 06:15 Carbon Dioxide 28.8 mEq/L (21.0-31.0) 09/25/16 06:15 Anion Gap 4.2 (7.0-16.0) L 09/25/16 06:15 BUN 16 mg/dL (7-25) 09/25/16 06:15 Creatinine 0.6 mg/dL (0.7-1.3) L 09/25/16 06:15 Est GFR ( Amer) TNP 09/25/16 06:15 Est GFR (Non-Af Amer) TNP 09/25/16 06:15 BUN/Creatinine Ratio 26.7 09/25/16 06:15 Glucose 69 mg/dL (70-105) L 09/25/16 06:15 POC Glucose 126 MG/DL (70 - 105) H 09/17/16 23:57 Hemoglobin A1c % 5.8 % (4.0-6.0) 09/03/16 09:20 Whole Bld Lactic Acid 1.32 mmol/L (0.60-1.99) 08/31/16 08:20 Calcium 9.2 mg/dL (8.6-10.3) 09/25/16 06:15 Magnesium 2.2 mg/dL (1.9-2.7) 09/06/16 05:55 Total Bilirubin 0.4 mg/dL (0.3-1.0) 09/25/16 06:15 AST 16 U/L (13-39) 09/25/16 06:15 ALT 23 U/L (7-52) 09/25/16 06:15 Alkaline Phosphatase 68 U/L (34-104) 09/25/16 06:15 Troponin I 0.02 ng/mL (0.01-0.05) 08/31/16 08:20 B-Natriuretic Peptide 129.0 pg/mL (5.0-100.0) H 09/06/16 05:55 Total Protein 5.9 gm/dL (6.0-8.3) L 09/25/16 06:15 Albumin 3.0 gm/dL (4.2-5.5) L 09/25/16 06:15 Globulin 2.9 gm/dL 09/25/16 06:15 Albumin/Globulin Ratio 1.0 (1.0-1.8) 09/25/16 06:15 TSH 0.39 uIU/ml (0.34-5.60) 08/31/16 08:20 Urine Source CLEAN C 09/03/16 17:00 Urine Color YELLOW 09/03/16 17:00 Urine Clarity CLEAR (CLEAR) 09/03/16 17:00 Urine pH 6.5 09/03/16 17:00 Ur Specific [place] 1.015 (1.005-1.030) 09/03/16 17:00 Urine Protein NEGATIVE mg/dL (NEGATIVE) 09/03/16 17:00 Urine Glucose (UA) NEGATIVE mg/dL (NEGATIVE) 09/03/16 17:00 Urine Ketones NEGATIVE mg/dL (NEGATIVE) 09/03/16 17:00 Urine Blood NEGATIVE (NEGATIVE) 09/03/16 17:00 Urine Nitrate NEGATIVE (NEGATIVE) 09/03/16 17:00 Urine Bilirubin NEGATIVE (NEGATIVE) 09/03/16 17:00 Urine Urobilinogen 0.2 E.U./dL (0.2 - 1.0) 09/03/16 17:00 Ur Leukocyte Esterase NEGATIVE (NEGATIVE) 09/03/16 17:00 Urine RBC NONE SEEN /hpf (0-5) 09/03/16 17:00 Urine WBC NONE SEEN /hpf (0-5) 09/03/16 17:00 Ur Epithelial Cells NONE SEEN /lpf (FEW) 09/03/16 17:00 Urine Bacteria NONE SEEN /hpf (NONE SEEN) 09/03/16 17:00 Vancomycin Trough 17.3 ug/mL (10-20) 09/06/16 09:00 RPR NONREACTIVE (NONREACTIVE) 08/31/16 08:20 - Physical Exam Vitals and I&O: Vital Signs Temp 96.4 F 09/28/16 03:59 Pulse 62 09/28/16 14:58 Resp 16 09/28/16 14:58 BP 123/64 09/28/16 03:59 Pulse Ox 97 09/28/16 14:58 Intake & Output 09/27/16 09/28/16 09/28/16 18:59 06:59 18:59 Intake Total 1080 Output Total 1 Balance 1080 -1 Intake: Oral 1080 Output: Stool 1 Other: # Voids 4 3 Active Medications: Current Medications Acetaminophen (Tylenol) 650 mg PO Q4HR PRN PRN Reason: Pain or Fever >101 Stop: 10/30/16 09:31 Acetylcysteine (Mucomyst 20%) 2 ml HHN Q6HRT [facility] Stop: 10/30/16 18:59 Last Admin: 09/28/16 13:49 Dose: 2 ml Albuterol Sulfate (Albuterol 2.5mg/3ml Neb Ud) 2.5 mg HHN QIDRT [facility] Stop: 10/30/16 12:59 Last Admin: 09/28/16 14:57 Dose: 2.5 mg Amiodarone HCl (Cordarone) 200 mg PO DAILY [facility] Stop: 10/31/16 08:59 Last Admin: 09/28/16 09:36 Dose: Not Given Aspirin (Aspirin Chewable) 81 mg PO DAILY [facility] Stop: 10/31/16 08:59 Last Admin: 09/28/16 09:36 Dose: 81 mg Atorvastatin Calcium (Lipitor) 10 mg PO HS [facility] PRN Reason: Protocol Stop: 10/30/16 20:59 Last Admin: 09/27/16 21:26 Dose: 10 mg Bisacodyl (Dulcolax 10 Mg Supp) 10 mg RC Q72H PRN PRN Reason: Constipation Stop: 10/30/16 09:31 Budesonide (Pulmicort) 0.5 mg HHN Q12HRT [facility] Stop: 10/30/16 09:44 Last Admin: 09/28/16 07:34 Dose: 0.5 mg Buspirone HCl (Buspar) 10 mg PO TID [facility] Stop: 10/30/16 13:59 Last Admin: 09/28/16 14:03 Dose: 10 mg Donepezil HCl (Aricept) 10 mg PO HS [facility] Stop: 10/30/16 20:59 Last Admin: 09/27/16 21:27 Dose: 10 mg Guaifenesin (Mucinex) 600 mg PO Q12HR PRN PRN Reason: Cough or Congestion Stop: 11/04/16 23:19 Last Admin: 09/25/16 01:14 Dose: 600 mg Ipratropium [place] (Atrovent Neb 0.5mg/2.5ml) 0.5 mg HHN Q6HRT [facility] Stop: 11/02/16 00:59 Last Admin: 09/28/16 13:48 Dose: 0.5 mg Magnesium Hydroxide (Milk Of Magnesia) 30 ml PO HS PRN PRN Reason: Constipation Stop: 10/30/16 09:31 Magnesium Hydroxide (Milk Of Magnesia) 30 ml PO DAILY PRN PRN Reason: Constipation Stop: 11/13/16 12:41 Montelukast Sodium (Singulair) 10 mg PO HS [facility] Stop: 10/30/16 20:59 Last Admin: 09/27/16 21:26 Dose: 10 mg Olanzapine (Zyprexa) 15 mg PO DAILY [facility] PRN Reason: Protocol Stop: 10/31/16 08:59 Last Admin: 09/28/16 09:37 Dose: 15 mg Ondansetron HCl (Zofran) 4 mg IV Q8H PRN PRN Reason: Nausea / Vomiting Stop: 10/30/16 09:34 Sodium Phosphate (Fleet Enema) 135 ml RC PRN PRN PRN Reason: Constipation Stop: 10/30/16 09:31 Tamsulosin HCl (Flomax) 0.4 mg PO HS [facility] Stop: 10/30/16 20:59 Last Admin: 09/27/16 21:26 Dose: 0.4 mg General: alert HEENT: NC/AT, PERRLA Neck: Supple Lungs: CTAB Cardiovascular: RRR, Normal S1, Normal S2, without murmur Abdomen: soft non-tender, non-distended, positive bowel sound Neurological: no change - Procedures Procedures: Procedures Procedure Code Date ASSISTANCE WITH RESPIRATORY VENTILATION, <24 HRS, CPAP 1Y50279 06/29/16 EXCISION OF DUODENUM, ENDO, DIAGN [id number] 07/18/16 EXCISION OF ESOPHAGUS, ENDO, DIAGN [id number] 07/18/16 EXCISION OF STOMACH, ENDO, DIAGN [id number] 07/18/16 POS AIRWAY PRESSURE CPAP 47208 06/29/16 Internal Medicine Assmt/Plan - Assessment Assessment: Pneumonia Copd exacerbation Respiratory Failure htn dyslipidemia dementia - Plan Plan: awaiting for snf placement bronchodilators continue ivabx supplemental o2 cpm Nutritional Asmnt/Malnutr-PDOC - Dietary Evaluation Malnutrition Findings (Please click <Entered> for more info): Nutritional Asmnt/Malnutrition Start: 09/02/16 14: 33 Text: Status: Complete Freq: Document 09/02/16 14:34 GSUN (Rec: 09/02/16 14:52 KAILEE [email or web address]) Nutritional Asmnt/Malnutrition Patient General Information Nutritional Screening High Risk Screening Diagnosis Pneumonia, acute respiratory failure, COPD exacerbation Pertinent Medical Hx/Surgical Hx HTN, CAD, asthma, COPD, dyslipidemia, PUD, GERD, dementia Subjective Information 75yo M from SNF. Pt was alert, appeared anxious during visit . Pt was admitted here once in past July and twice in past June. Pt was ordered pureed + nectar thick during previous two stays. Most recent swallow eval 06/26/16 ST recommended mech soft + nectar thick. Discussed with pt regarding diet texture and tolerance, pt denied difficulties chewing/ swallowing and expressed preference for current mech soft ground. Encouraged pt to inform RN if any diet texture intolerance noted, pt understood. PO intake 100% all 3 meals yesterday 09/01. Unable to lower pt's head for bedscale due to pt appeared anxious. Current Diet Order/ Nutrition Support Mech soft ground + nectar thick Pertinent Medications Dulcolax, D5, MOM, Solu-Medrol , Vancomycin, Zofran, Fleet Enema Pertinent Labs Reviewed. Glucose 105, 143, 145 Nutritional Hx/Data Height 5 ft 8 in Height (Calculated Centimeters) 172.7 Current Weight (lbs) 162 lb Weight (Calculated Kilograms) 73.5 Weight (Calculated Grams) 92653.0 Usual body Weight (lbs) 161 [place] Body Weight 154lb ([place]) Recent Weight Change No Weight Status Approriate GI Symptoms Food Allergies No Cultural/Ethnic/Restorationist Belief Unknown. Usual diet at home Unknown. Skin Integrity/Comment: Ruddy 11. Skin intact. Current %PO Good (75-100%) Estimated Nutritional Goals BEE in Kcals: Using Current wt Calories/Kcals/Kg 30-35kcal/kg Kcals Calculated 2205-2573kcal Protein: Using Current wt Protein g/k.2-1.4g/kg Protein Calculated 88-103g/kg Fluid: ml 2205-2573ml (1ml/kcal) Nutritional Problem 1. Problem Problem Increased kcal and prot needs related to Etiology hypermetabolic stated aeb Signs/Symptoms: pneumonia, COPD exacerbation, acute respiratory failure Intervention/Recommendation Comments 1. Continue with mech soft ground + necatar thick diet ( refer to subjective information in nutrition assessment). Continue to monitor and supervise during meal time. Expected Outcomes/Goals Expected Outcomes/Goals 1. PO intake to meet at least 75% of estimated nutritional needs. Physician Parameters for PEM Serum Albumin (g/dl) 3.5 - 5.0 (Normal)
[2016-09-28] MEDS: Atorvastatin Calcium 10 MG TAB PO SCH (21:09)
[2016-09-29] MEDS: Ipratropium Neb 0.5 mg/2.5 mL UD HHN SCH ×4 (00:57→19:15)
[2016-09-29] MEDS: Albuterol Nebulizer 2.5mg/3mL HHN SCH ×4 (06:53→19:14)
[2016-09-29] MEDS: Budesonide 0.5 Mg/2 mL Ud HHN SCH (06:53)
[2016-09-29 07:10] LABS: % BASOPHILS 0.1 % (0.0-2.0); % EOSINOPHILS 5.3 % (0.0-5.0); % LYMPHOCYTES 23.4 % (20.0-50.0); % MONOCYTES 8.3 % (2.0-10.0); % NEUTROPHILS 62.9 % (40.0-80.0); HEMATOCRIT 32.8 % (39.0-49.0); HEMOGLOBIN 11.2 gm/dL (12.6-17.4); MEAN CELL VOLUME 87.7 fl (80-99); MEAN CORPUSCULAR HGB CONC 34.2 pg (28.0-36.0); MEAN PLATELET VOLUME 7.1 fl; NEUTROPHILE ABSOLUTE 3.5 Th/cmm (1.8-8.0); RED BLOOD COUNT 3.74 Mil/cmm (3.80-5.80); RED CELL DISTRIBUTION WIDTH 15.4 % (11.5-20.0); WHITE BLOOD COUNT 5.6 Th/cmm (4.8-10.8)
[2016-09-29 07:21] LABS: PLATELET COUNT 353 Th/cmm (150-400)
[2016-09-29 07:35] LABS: ANION GAP 7.8 (7.0-16.0); BUN - UREA NITROGEN 16 mg/dL (7-25); BUN/CREATININE RATIO 26.7; CALCIUM SERUM 9.3 mg/dL (8.6-10.3); CARBON DIOXIDE 30.2 mEq/L (21.0-31.0); CHLORIDE 108 mEq/L (98-107); CREATININE - SERUM 0.6 mg/dL (0.7-1.3); GLUCOSE 77 mg/dL (70-105); SODIUM SERUM 142 mEq/L (136-145)
[2016-09-29] MEDS: Aspirin 81mg Chewable Tab PO SCH (08:57)
--- NOTE | 2016-09-29 16:41 | Internal Medicine Prog Note ---
Internal Medicine Subjective - Subjective Service Date: 09/29/16 Patient seen and examined:: with staff Patient is:: awake Per staff patient is:: no adverse event Internal Medicine Objective - Results Result Diagrams: 09/29/16 06:22 09/29/16 06:22 Recent Labs: Laboratory Last Values WBC 5.6 Th/cmm (4.8-10.8) 09/29/16 06:22 RBC 3.74 Mil/cmm (3.80-5.80) L 09/29/16 06:22 Hgb 11.2 gm/dL (12.6-17.4) L 09/29/16 06:22 Hct 32.8 % (39.0-49.0) L 09/29/16 06:22 MCV 87.7 fl (80-99) 09/29/16 06:22 MCH 30.0 pg (27.0-31.0) 09/29/16 06:22 MCHC Differential 34.2 pg (28.0-36.0) 09/29/16 06:22 RDW 15.4 % (11.5-20.0) 09/29/16 06:22 Plt Count 353 Th/cmm (150-400) D 09/29/16 06:22 MPV 7.1 fl 09/29/16 06:22 Neutrophils % 62.9 % (40.0-80.0) 09/29/16 06:22 Band Neutrophils % 1 % (0-10) 09/15/16 05:40 Lymphocytes % 23.4 % (20.0-50.0) 09/29/16 06:22 Monocytes % 8.3 % (2.0-10.0) 09/29/16 06:22 Eosinophils % 5.3 % (0.0-5.0) H 09/29/16 06:22 Basophils % 0.1 % (0.0-2.0) 09/29/16 06:22 Neutrophils (Manual) 86 % (40-80) H 09/15/16 05:40 Lymphocytes 9 % (20-50) L 09/15/16 05:40 Monocytes 4 % (2-10) 09/15/16 05:40 Eosinophils 1 % (0-5) 09/09/16 07:39 Basophils 1 % (0-3) 09/09/16 07:39 Platelet Estimate ADEQUATE (NORMAL) 09/15/16 05:40 Platelet Morphology NORMAL (NORMAL) 09/15/16 05:40 Poikilocytosis 1+ 09/08/16 06:41 Anisocytosis 1+ 09/13/16 06:22 Ovalocytes 1+ 09/08/16 06:41 RBC Morph Micro Appear NORMAL (NORMAL) 09/15/16 05:40 PT 9.8 SECONDS (9.5-11.5) 08/31/16 08:20 INR 0.99 (0.5-1.4) 08/31/16 08:20 Specimen Source Arterial 08/31/16 07:36 Sample Site Right Radial 08/31/16 07:36 pH 7.42 (7.35-7.45) 08/31/16 07:36 pCO2 42.0 mmHg (35.0-45.0) 08/31/16 07:36 pO2 53.0 mmHg (80.0-100.0) L 08/31/16 07:36 HCO3 27.2 mmol/L (20.0-26.0) H 08/31/16 07:36 Base Excess 2.4 mmol/L (-3.0-3.0) 08/31/16 07:36 O2 Saturation 88.0 % (92.0-100.0) L 08/31/16 07:36 Praveen Test YES 08/31/16 07:36 Vent Rate NA 08/31/16 07:36 Inspired O2 21 08/31/16 07:36 Tidal Volume NA 08/31/16 07:36 PEEP NA 08/31/16 07:36 Pressure (ins/psv/peep) NA 08/31/16 07:36 Critical Value SH 08/31/16 07:36 Sodium 142 mEq/L (136-145) 09/29/16 06:22 Potassium 4.0 mEq/L (3.5-5.1) 09/29/16 06:22 Chloride 108 mEq/L (98-107) H 09/29/16 06:22 Carbon Dioxide 30.2 mEq/L (21.0-31.0) 09/29/16 06:22 Anion Gap 7.8 (7.0-16.0) 09/29/16 06:22 BUN 16 mg/dL (7-25) 09/29/16 06:22 Creatinine 0.6 mg/dL (0.7-1.3) L 09/29/16 06:22 Est GFR ( Amer) TNP 09/29/16 06:22 Est GFR (Non-Af Amer) TNP 09/29/16 06:22 BUN/Creatinine Ratio 26.7 09/29/16 06:22 Glucose 77 mg/dL (70-105) 09/29/16 06:22 POC Glucose 126 MG/DL (70 - 105) H 09/17/16 23:57 Hemoglobin A1c % 5.8 % (4.0-6.0) 09/03/16 09:20 Whole Bld Lactic Acid 1.32 mmol/L (0.60-1.99) 08/31/16 08:20 Calcium 9.3 mg/dL (8.6-10.3) 09/29/16 06:22 Magnesium 2.2 mg/dL (1.9-2.7) 09/06/16 05:55 Total Bilirubin 0.4 mg/dL (0.3-1.0) 09/25/16 06:15 AST 16 U/L (13-39) 09/25/16 06:15 ALT 23 U/L (7-52) 09/25/16 06:15 Alkaline Phosphatase 68 U/L (34-104) 09/25/16 06:15 Troponin I 0.02 ng/mL (0.01-0.05) 08/31/16 08:20 B-Natriuretic Peptide 129.0 pg/mL (5.0-100.0) H 09/06/16 05:55 Total Protein 5.9 gm/dL (6.0-8.3) L 09/25/16 06:15 Albumin 3.0 gm/dL (4.2-5.5) L 09/25/16 06:15 Globulin 2.9 gm/dL 09/25/16 06:15 Albumin/Globulin Ratio 1.0 (1.0-1.8) 09/25/16 06:15 TSH 0.39 uIU/ml (0.34-5.60) 08/31/16 08:20 Urine Source CLEAN C 09/03/16 17:00 Urine Color YELLOW 09/03/16 17:00 Urine Clarity CLEAR (CLEAR) 09/03/16 17:00 Urine pH 6.5 02/28/17 17:00 Ur Specific [place] 1.015 (1.005-1.030) 09/03/16 17:00 Urine Protein NEGATIVE mg/dL (NEGATIVE) 09/03/16 17:00 Urine Glucose (UA) NEGATIVE mg/dL (NEGATIVE) 09/03/16 17:00 Urine Ketones NEGATIVE mg/dL (NEGATIVE) 09/03/16 17:00 Urine Blood NEGATIVE (NEGATIVE) 09/03/16 17:00 Urine Nitrate NEGATIVE (NEGATIVE) 09/03/16 17:00 Urine Bilirubin NEGATIVE (NEGATIVE) 09/03/16 17:00 Urine Urobilinogen 0.2 E.U./dL (0.2 - 1.0) 09/03/16 17:00 Ur Leukocyte Esterase NEGATIVE (NEGATIVE) 09/03/16 17:00 Urine RBC NONE SEEN /hpf (0-5) 09/03/16 17:00 Urine WBC NONE SEEN /hpf (0-5) 09/03/16 17:00 Ur Epithelial Cells NONE SEEN /lpf (FEW) 09/03/16 17:00 Urine Bacteria NONE SEEN /hpf (NONE SEEN) 09/03/16 17:00 Vancomycin Trough 17.3 ug/mL (10-20) 09/06/16 09:00 RPR NONREACTIVE (NONREACTIVE) 08/31/16 08:20 - Physical Exam Vitals and I&O: Vital Signs Temp 96.7 F 09/29/16 08:00 Pulse 75 09/29/16 14:33 Resp 16 09/29/16 14:33 BP 128/63 09/29/16 08:00 Pulse Ox 97 09/29/16 14:33 Intake & Output 09/28/16 09/29/16 09/29/16 18:59 06:59 18:59 Intake Total 1080 Balance 1080 Intake: Oral 1080 Other: # Voids 4 3 # Bowel Movements 1 0 Active Medications: Current Medications Acetaminophen (Tylenol) 650 mg PO Q4HR PRN PRN Reason: Pain or Fever >101 Stop: 10/30/16 09:31 Acetylcysteine (Mucomyst 20%) 2 ml HHN Q6HRT [facility] Stop: 10/30/16 18:59 Last Admin: 09/29/16 12:03 Dose: 2 ml Albuterol Sulfate (Albuterol 2.5mg/3ml Neb Ud) 2.5 mg HHN QIDRT [facility] Stop: 10/30/16 12:59 Last Admin: 09/29/16 14:16 Dose: 2.5 mg Amiodarone HCl (Cordarone) 200 mg PO DAILY [facility] Stop: 10/31/16 08:59 Last Admin: 09/29/16 08:58 Dose: Not Given Aspirin (Aspirin Chewable) 81 mg PO DAILY [facility] Stop: 10/31/16 08:59 Last Admin: 09/29/16 08:57 Dose: 81 mg Atorvastatin Calcium (Lipitor) 10 mg PO HS [facility] PRN Reason: Protocol Stop: 10/30/16 20:59 Last Admin: 09/28/16 21:09 Dose: 10 mg Bisacodyl (Dulcolax 10 Mg Supp) 10 mg RC Q72H PRN PRN Reason: Constipation Stop: 10/30/16 09:31 Budesonide (Pulmicort) 0.5 mg HHN Q12HRT [facility] Stop: 10/30/16 09:44 Last Admin: 09/29/16 06:53 Dose: 0.5 mg Buspirone HCl (Buspar) 10 mg PO TID [facility] Stop: 10/30/16 13:59 Last Admin: 09/29/16 14:01 Dose: 10 mg Donepezil HCl (Aricept) 10 mg PO [facility] Stop: 10/30/16 20:59 Last Admin: 09/28/16 21:10 Dose: 10 mg Guaifenesin (Mucinex) 600 mg PO Q12HR PRN PRN Reason: Cough or Congestion Stop: 11/04/16 23:19 Last Admin: 09/25/16 01:14 Dose: 600 mg Ipratropium [place] (Atrovent Neb 0.5mg/2.5ml) 0.5 mg HHN Q6HRT [facility] Stop: 11/02/16 00:59 Last Admin: 09/29/16 12:03 Dose: 0.5 mg Magnesium Hydroxide (Milk Of Magnesia) 30 ml PO HS PRN PRN Reason: Constipation Stop: 10/30/16 09:31 Magnesium Hydroxide (Milk Of Magnesia) 30 ml PO DAILY PRN PRN Reason: Constipation Stop: 11/13/16 12:41 Montelukast Sodium (Singulair) 10 mg PO HS [facility] Stop: 10/30/16 20:59 Last Admin: 09/28/16 21:09 Dose: 10 mg Olanzapine (Zyprexa) 15 mg PO DAILY [facility] PRN Reason: Protocol Stop: 10/31/16 08:59 Last Admin: 09/29/16 08:57 Dose: 15 mg Ondansetron HCl (Zofran) 4 mg IV Q8H PRN PRN Reason: Nausea / Vomiting Stop: 10/30/16 09:34 Sodium Phosphate (Fleet Enema) 135 ml RC PRN PRN PRN Reason: Constipation Stop: 10/30/16 09:31 Tamsulosin HCl (Flomax) 0.4 mg PO HS [facility] Stop: 10/30/16 20:59 Last Admin: 09/28/16 21:09 Dose: 0.4 mg General: alert HEENT: NC/AT, PERRLA Neck: Supple Lungs: CTAB Cardiovascular: RRR, Normal S1, Normal S2, without murmur Abdomen: soft non-tender, non-distended, positive bowel sound Neurological: no change - Procedures Procedures: Procedures Procedure Code Date ASSISTANCE WITH RESPIRATORY VENTILATION, <24 HRS, CPAP [id number] 06/29/16 EXCISION OF DUODENUM, ENDO, DIAGN [id number] 07/18/16 EXCISION OF ESOPHAGUS, ENDO, DIAGN [id number] 07/18/16 EXCISION OF STOMACH, ENDO, DIAGN [id number] 07/18/16 POS AIRWAY PRESSURE CPAP [id number] 06/29/16 Internal Medicine Assmt/Plan - Assessment Assessment: Pneumonia Copd exacerbation Respiratory Failure htn dyslipidemia dementia - Plan Plan: awaiting for snf placement bronchodilators continue ivabx supplemental o2 cpm Nutritional Asmnt/Malnutr-PDOC - Dietary Evaluation Malnutrition Findings (Please click <Entered> for more info): Nutritional Asmnt/Malnutrition Start: 09/02/16 14: 33 Text: Status: Complete Freq: Document 09/02/16 14:34 GSUN (Rec: 09/02/16 14:52 KAILEE [email or web address]) Nutritional Asmnt/Malnutrition Patient General Information Nutritional Screening High Risk Screening Diagnosis Pneumonia, acute respiratory failure, COPD exacerbation Pertinent Medical Hx/Surgical Hx HTN, CAD, asthma, COPD, dyslipidemia, PUD, GERD, dementia Subjective Information 75yo M from SNF. Pt was alert, appeared anxious during visit . Pt was admitted here once in past July and twice in past June. Pt was ordered pureed + nectar thick during previous two stays. Most recent swallow eval 06/26/16 ST recommended mech soft + nectar thick. Discussed with pt regarding diet texture and tolerance, pt denied difficulties chewing/ swallowing and expressed preference for current mech soft ground. Encouraged pt to inform RN if any diet texture intolerance noted, pt understood. PO intake 100% all 3 meals yesterday 09/01. Unable to lower pt's head for bedscale due to pt appeared anxious. Current Diet Order/ Nutrition Support Mech soft ground + nectar thick Pertinent Medications Dulcolax, D5, MOM, Solu-Medrol , Vancomycin, Zofran, Fleet Enema Pertinent Labs Reviewed. Glucose 105, 143, 145 Nutritional Hx/Data Height 5 ft 8 in Height (Calculated Centimeters) 172.7 Current Weight (lbs) 162 lb Weight (Calculated Kilograms) 73.5 Weight (Calculated Grams) 78892.0 Usual body Weight (lbs) 161 [place] Body Weight 154lb ([place]) Recent Weight Change No Weight Status Approriate GI Symptoms Food Allergies No Cultural/Ethnic/Scientology Belief Unknown. Usual diet at home Unknown. Skin Integrity/Comment: Ruddy 11. Skin intact. Current %PO Good (75-100%) Estimated Nutritional Goals BEE in Kcals: Using Current wt Calories/Kcals/Kg 30-35kcal/kg Kcals Calculated 2205-2573kcal Protein: Using Current wt Protein g/k.2-1.4g/kg Protein Calculated 88-103g/kg Fluid: ml 2205-2573ml (1ml/kcal) Nutritional Problem 1. Problem Problem Increased kcal and prot needs related to Etiology hypermetabolic stated aeb Signs/Symptoms: pneumonia, COPD exacerbation, acute respiratory failure Intervention/Recommendation Comments 1. Continue with mech soft ground + necatar thick diet ( refer to subjective information in nutrition assessment). Continue to monitor and supervise during meal time. Expected Outcomes/Goals Expected Outcomes/Goals 1. PO intake to meet at least 75% of estimated nutritional needs. Physician Parameters for PEM Serum Albumin (g/dl) 3.5 - 5.0 (Normal)
[2016-09-29] MEDS: Atorvastatin Calcium 10 MG TAB PO SCH (21:16)
[2016-09-30] MEDS: Ipratropium Neb 0.5 mg/2.5 mL UD HHN SCH ×4 (00:43→19:24)
[2016-09-30] MEDS: Budesonide 0.5 Mg/2 mL Ud HHN SCH ×2 (06:56→19:24)
[2016-09-30] MEDS: Albuterol Nebulizer 2.5mg/3mL HHN SCH ×4 (06:56→19:24)
--- NOTE | 2016-09-30 08:12 | Diagnostic Imaging Report ---
Portable chest x-ray HISTORY: Shortness of breath Compared with a prior exam of September 26, 2016, a linear density seen in the left lung base suggesting subsegmental atelectasis. Persistent elevation of the left hemidiaphragm. The heart remains enlarged. Numerous surgical clips and suture material noted over the heart. IMPRESSION: 1. New faint linear density within the left lung base consistent with subsegmental atelectasis. No other changes in the cardiopulmonary status.
[2016-09-30] MEDS: Aspirin 81mg Chewable Tab PO SCH (08:58)
--- NOTE | 2016-09-30 12:21 | Internal Medicine Prog Note ---
Internal Medicine Subjective - Subjective Service Date: 09/30/16 Patient seen and examined:: with staff Patient is:: awake Per staff patient is:: no adverse event Internal Medicine Objective - Results Result Diagrams: 09/29/16 06:22 09/29/16 06:22 Recent Labs: Laboratory Last Values WBC 5.6 Th/cmm (4.8-10.8) 09/29/16 06:22 RBC 3.74 Mil/cmm (3.80-5.80) L 09/29/16 06:22 Hgb 11.2 gm/dL (12.6-17.4) L 09/29/16 06:22 Hct 32.8 % (39.0-49.0) L 09/29/16 06:22 MCV 87.7 fl (80-99) 09/29/16 06:22 MCH 30.0 pg (27.0-31.0) 09/29/16 06:22 MCHC Differential 34.2 pg (28.0-36.0) 09/29/16 06:22 RDW 15.4 % (11.5-20.0) 09/29/16 06:22 Plt Count 353 Th/cmm (150-400) D 09/29/16 06:22 MPV 7.1 fl 09/29/16 06:22 Neutrophils % 62.9 % (40.0-80.0) 09/29/16 06:22 Band Neutrophils % 1 % (0-10) 09/15/16 05:40 Lymphocytes % 23.4 % (20.0-50.0) 09/29/16 06:22 Monocytes % 8.3 % (2.0-10.0) 09/29/16 06:22 Eosinophils % 5.3 % (0.0-5.0) H 09/29/16 06:22 Basophils % 0.1 % (0.0-2.0) 09/29/16 06:22 Neutrophils (Manual) 86 % (40-80) H 09/15/16 05:40 Lymphocytes 9 % (20-50) L 09/15/16 05:40 Monocytes 4 % (2-10) 09/15/16 05:40 Eosinophils 1 % (0-5) 09/09/16 07:39 Basophils 1 % (0-3) 09/09/16 07:39 Platelet Estimate ADEQUATE (NORMAL) 09/15/16 05:40 Platelet Morphology NORMAL (NORMAL) 09/15/16 05:40 Poikilocytosis 1+ 09/08/16 06:41 Anisocytosis 1+ 09/13/16 06:22 Ovalocytes 1+ 09/08/16 06:41 RBC Morph Micro Appear NORMAL (NORMAL) 09/15/16 05:40 PT 9.8 SECONDS (9.5-11.5) 08/31/16 08:20 INR 0.99 (0.5-1.4) 08/31/16 08:20 Specimen Source Arterial 08/31/16 07:36 Sample Site Right Radial 08/31/16 07:36 pH 7.42 (7.35-7.45) 08/31/16 07:36 pCO2 42.0 mmHg (35.0-45.0) 08/31/16 07:36 pO2 53.0 mmHg (80.0-100.0) L 08/31/16 07:36 HCO3 27.2 mmol/L (20.0-26.0) H 08/31/16 07:36 Base Excess 2.4 mmol/L (-3.0-3.0) 08/31/16 07:36 O2 Saturation 88.0 % (92.0-100.0) L 08/31/16 07:36 Praveen Test YES 08/31/16 07:36 Vent Rate NA 08/31/16 07:36 Inspired O2 21 08/31/16 07:36 Tidal Volume NA 08/31/16 07:36 PEEP NA 08/31/16 07:36 Pressure (ins/psv/peep) NA 08/31/16 07:36 Critical Value SH 08/31/16 07:36 Sodium 142 mEq/L (136-145) 09/29/16 06:22 Potassium 4.0 mEq/L (3.5-5.1) 09/29/16 06:22 Chloride 108 mEq/L (98-107) H 09/29/16 06:22 Carbon Dioxide 30.2 mEq/L (21.0-31.0) 09/29/16 06:22 Anion Gap 7.8 (7.0-16.0) 09/29/16 06:22 BUN 16 mg/dL (7-25) 09/29/16 06:22 Creatinine 0.6 mg/dL (0.7-1.3) L 09/29/16 06:22 Est GFR ( Amer) TNP 09/29/16 06:22 Est GFR (Non-Af Amer) TNP 09/29/16 06:22 BUN/Creatinine Ratio 26.7 09/29/16 06:22 Glucose 77 mg/dL (70-105) 09/29/16 06:22 POC Glucose 126 MG/DL (70 - 105) H 09/17/16 23:57 Hemoglobin A1c % 5.8 % (4.0-6.0) 09/03/16 09:20 Whole Bld Lactic Acid 1.32 mmol/L (0.60-1.99) 08/31/16 08:20 Calcium 9.3 mg/dL (8.6-10.3) 09/29/16 06:22 Magnesium 2.2 mg/dL (1.9-2.7) 09/06/16 05:55 Total Bilirubin 0.4 mg/dL (0.3-1.0) 09/25/16 06:15 AST 16 U/L (13-39) 09/25/16 06:15 ALT 23 U/L (7-52) 09/25/16 06:15 Alkaline Phosphatase 68 U/L (34-104) 09/25/16 06:15 Troponin I 0.02 ng/mL (0.01-0.05) 08/31/16 08:20 B-Natriuretic Peptide 129.0 pg/mL (5.0-100.0) H 09/06/16 05:55 Total Protein 5.9 gm/dL (6.0-8.3) L 09/25/16 06:15 Albumin 3.0 gm/dL (4.2-5.5) L 09/25/16 06:15 Globulin 2.9 gm/dL 09/25/16 06:15 Albumin/Globulin Ratio 1.0 (1.0-1.8) 09/25/16 06:15 TSH 0.39 uIU/ml (0.34-5.60) 08/31/16 08:20 Urine Source CLEAN C 09/03/16 17:00 Urine Color YELLOW 09/03/16 17:00 Urine Clarity CLEAR (CLEAR) 09/03/16 17:00 Urine pH 6.5 02/28/17 17:00 Ur Specific [place] 1.015 (1.005-1.030) 09/03/16 17:00 Urine Protein NEGATIVE mg/dL (NEGATIVE) 09/03/16 17:00 Urine Glucose (UA) NEGATIVE mg/dL (NEGATIVE) 09/03/16 17:00 Urine Ketones NEGATIVE mg/dL (NEGATIVE) 09/03/16 17:00 Urine Blood NEGATIVE (NEGATIVE) 09/03/16 17:00 Urine Nitrate NEGATIVE (NEGATIVE) 09/03/16 17:00 Urine Bilirubin NEGATIVE (NEGATIVE) 09/03/16 17:00 Urine Urobilinogen 0.2 E.U./dL (0.2 - 1.0) 09/03/16 17:00 Ur Leukocyte Esterase NEGATIVE (NEGATIVE) 09/03/16 17:00 Urine RBC NONE SEEN /hpf (0-5) 09/03/16 17:00 Urine WBC NONE SEEN /hpf (0-5) 09/03/16 17:00 Ur Epithelial Cells NONE SEEN /lpf (FEW) 09/03/16 17:00 Urine Bacteria NONE SEEN /hpf (NONE SEEN) 09/03/16 17:00 Vancomycin Trough 17.3 ug/mL (10-20) 09/06/16 09:00 RPR NONREACTIVE (NONREACTIVE) 08/31/16 08:20 - Physical Exam Vitals and I&O: Vital Signs Temp 97.8 F 09/30/16 08:00 Pulse 65 09/30/16 11:00 Resp 16 09/30/16 11:00 BP 119/68 09/30/16 08:00 Pulse Ox 97 09/30/16 11:00 Intake & Output 09/29/16 09/30/16 09/30/16 18:59 06:59 18:59 Output Total 1450 Balance -1450 Output: Urine 1450 Other: # Bowel Movements 0 Active Medications: Current Medications Acetaminophen (Tylenol) 650 mg PO Q4HR PRN PRN Reason: Pain or Fever >101 Stop: 10/30/16 09:31 Acetylcysteine (Mucomyst 20%) 2 ml HHN Q6HRT [facility] Stop: 10/30/16 18:59 Last Admin: 09/30/16 12:04 Dose: 2 ml Albuterol Sulfate (Albuterol 2.5mg/3ml Neb Ud) 2.5 mg HHN QIDRT [facility] Stop: 10/30/16 12:59 Last Admin: 09/30/16 10:56 Dose: 2.5 mg Amiodarone HCl (Cordarone) 200 mg PO DAILY [facility] Stop: 10/31/16 08:59 Last Admin: 09/30/16 08:57 Dose: 200 mg Aspirin (Aspirin Chewable) 81 mg PO DAILY [facility] Stop: 10/31/16 08:59 Last Admin: 09/30/16 08:58 Dose: 81 mg Atorvastatin Calcium (Lipitor) 10 mg PO HS [facility] PRN Reason: Protocol Stop: 10/30/16 20:59 Last Admin: 09/29/16 21:16 Dose: 10 mg Bisacodyl (Dulcolax 10 Mg Supp) 10 mg RC Q72H PRN PRN Reason: Constipation Stop: 10/30/16 09:31 Budesonide (Pulmicort) 0.5 mg HHN Q12HRT [facility] Stop: 10/30/16 09:44 Last Admin: 09/30/16 06:56 Dose: 0.5 mg Buspirone HCl (Buspar) 10 mg PO TID [facility] Stop: 10/30/16 13:59 Last Admin: 09/30/16 08:57 Dose: 10 mg Donepezil HCl (Aricept) 10 mg PO HS [facility] Stop: 10/30/16 20:59 Last Admin: 09/29/16 21:15 Dose: 10 mg Guaifenesin (Mucinex) 600 mg PO Q12HR PRN PRN Reason: Cough or Congestion Stop: 11/04/16 23:19 Last Admin: 09/25/16 01:14 Dose: 600 mg Ipratropium [place] (Atrovent Neb 0.5mg/2.5ml) 0.5 mg HHN Q6HRT [facility] Stop: 11/02/16 00:59 Last Admin: 09/30/16 12:03 Dose: 0.5 mg Magnesium Hydroxide (Milk Of Magnesia) 30 ml PO HS PRN PRN Reason: Constipation Stop: 10/30/16 09:31 Magnesium Hydroxide (Milk Of Magnesia) 30 ml PO DAILY PRN PRN Reason: Constipation Stop: 11/13/16 12:41 Montelukast Sodium (Singulair) 10 mg PO HS [facility] Stop: 10/30/16 20:59 Last Admin: 09/29/16 21:16 Dose: 10 mg Olanzapine (Zyprexa) 15 mg PO DAILY [facility] PRN Reason: Protocol Stop: 10/31/16 08:59 Last Admin: 09/30/16 08:58 Dose: 15 mg Ondansetron HCl (Zofran) 4 mg IV Q8H PRN PRN Reason: Nausea / Vomiting Stop: 10/30/16 09:34 Sodium Phosphate (Fleet Enema) 135 ml RC PRN PRN PRN Reason: Constipation Stop: 10/30/16 09:31 Tamsulosin HCl (Flomax) 0.4 mg PO HS [facility] Stop: 10/30/16 20:59 Last Admin: 09/29/16 21:16 Dose: 0.4 mg General: alert HEENT: NC/AT, PERRLA Neck: Supple Lungs: CTAB Cardiovascular: RRR, Normal S2, without murmur Abdomen: soft non-tender, non-distended, positive bowel sound Neurological: no change - Procedures Procedures: Procedures Procedure Code Date ASSISTANCE WITH RESPIRATORY VENTILATION, <24 HRS, CPAP 9R27303 06/29/16 EXCISION OF DUODENUM, ENDO, DIAGN [id number] 07/18/16 EXCISION OF ESOPHAGUS, ENDO, DIAGN [id number] 07/18/16 EXCISION OF STOMACH, ENDO, DIAGN [id number] 07/18/16 POS AIRWAY PRESSURE CPAP 02515 06/29/16 Internal Medicine Assmt/Plan - Assessment Assessment: Pneumonia Copd exacerbation Respiratory Failure htn dyslipidemia dementia - Plan Plan: awaiting for snf placement bronchodilators continue ivabx supplemental o2 cpm Nutritional Asmnt/Malnutr-PDOC - Dietary Evaluation Malnutrition Findings (Please click <Entered> for more info): Nutritional Asmnt/Malnutrition Start: 09/02/16 14: 33 Text: Status: Complete Freq: Document 09/02/16 14:34 GSUN (Rec: 09/02/16 14:52 [facility] Nutritional Asmnt/Malnutrition Patient General Information Nutritional Screening High Risk Screening Diagnosis Pneumonia, acute respiratory failure, COPD exacerbation Pertinent Medical Hx/Surgical Hx HTN, CAD, asthma, COPD, dyslipidemia, PUD, GERD, dementia Subjective Information 75yo M from SNF. Pt was alert, appeared anxious during visit . Pt was admitted here once in past July and twice in past June. Pt was ordered pureed + nectar thick during previous two stays. Most recent swallow eval 06/26/16 ST recommended mech soft + nectar thick. Discussed with pt regarding diet texture and tolerance, pt denied difficulties chewing/ swallowing and expressed preference for current mech soft ground. Encouraged pt to inform RN if any diet texture intolerance noted, pt understood. PO intake 100% all 3 meals yesterday 09/01. Unable to lower pt's head for bedscale due to pt appeared anxious. Current Diet Order/ Nutrition Support Mech soft ground + nectar thick Pertinent Medications Dulcolax, D5, MOM, Solu-Medrol , Vancomycin, Zofran, Fleet Enema Pertinent Labs Reviewed. Glucose 105, 143, 145 Nutritional Hx/Data Height 5 ft 8 in Height (Calculated Centimeters) 172.7 Current Weight (lbs) 162 lb Weight (Calculated Kilograms) 73.5 Weight (Calculated Grams) 29919.0 Usual body Weight (lbs) 161 [place] Body Weight 154lb ([place]) Recent Weight Change No Weight Status Approriate GI Symptoms Food Allergies No Cultural/Ethnic/Sikhism Belief Unknown. Usual diet at home Unknown. Skin Integrity/Comment: Ruddy 11. Skin intact. Current %PO Good (75-100%) Estimated Nutritional Goals BEE in Kcals: Using Current wt Calories/Kcals/Kg 30-35kcal/kg Kcals Calculated 2205-2573kcal Protein: Using Current wt Protein g/k.2-1.4g/kg Protein Calculated 88-103g/kg Fluid: ml 2205-2573ml (1ml/kcal) Nutritional Problem 1. Problem Problem Increased kcal and prot needs related to Etiology hypermetabolic stated aeb Signs/Symptoms: pneumonia, COPD exacerbation, acute respiratory failure Intervention/Recommendation Comments 1. Continue with mech soft ground + necatar thick diet ( refer to subjective information in nutrition assessment). Continue to monitor and supervise during meal time. Expected Outcomes/Goals Expected Outcomes/Goals 1. PO intake to meet at least 75% of estimated nutritional needs. Physician Parameters for PEM Serum Albumin (g/dl) 3.5 - 5.0 (Normal)
[2016-09-30] MEDS: Atorvastatin Calcium 10 MG TAB PO SCH (20:53)
[2016-10-01] MEDS: Ipratropium Neb 0.5 mg/2.5 mL UD HHN SCH ×4 (00:07→19:38)
[2016-10-01] MEDS: Albuterol Nebulizer 2.5mg/3mL HHN SCH ×4 (07:33→19:38)
[2016-10-01] MEDS: Budesonide 0.5 Mg/2 mL Ud HHN SCH ×2 (07:33→19:38)
[2016-10-01] MEDS: Potassium Chloride 10 mEq ER Tab PO SCH (08:20)
[2016-10-01] MEDS: Furosemide 40 mg/4mL UDC PO SCH (08:20)
[2016-10-01] MEDS: Aspirin 81mg Chewable Tab PO SCH (08:20)
--- NOTE | 2016-10-01 12:48 | Internal Medicine Prog Note ---
Internal Medicine Subjective - Subjective Patient seen and examined:: with staff, chart reviewed Patient is:: asleep, non-verbal, non-interactive Patient Complaints of:: congestion Per staff patient is:: no adverse event, confused Internal Medicine Objective - Results Result Diagrams: 09/29/16 06:22 09/29/16 06:22 Recent Labs: Laboratory Last Values WBC 5.6 Th/cmm (4.8-10.8) 09/29/16 06:22 RBC 3.74 Mil/cmm (3.80-5.80) L 09/29/16 06:22 Hgb 11.2 gm/dL (12.6-17.4) L 09/29/16 06:22 Hct 32.8 % (39.0-49.0) L 09/29/16 06:22 MCV 87.7 fl (80-99) 09/29/16 06:22 MCH 30.0 pg (27.0-31.0) 09/29/16 06:22 MCHC Differential 34.2 pg (28.0-36.0) 09/29/16 06:22 RDW 15.4 % (11.5-20.0) 09/29/16 06:22 Plt Count 353 Th/cmm (150-400) D 09/29/16 06:22 MPV 7.1 fl 09/29/16 06:22 Neutrophils % 62.9 % (40.0-80.0) 09/29/16 06:22 Band Neutrophils % 1 % (0-10) 09/15/16 05:40 Lymphocytes % 23.4 % (20.0-50.0) 09/29/16 06:22 Monocytes % 8.3 % (2.0-10.0) 09/29/16 06:22 Eosinophils % 5.3 % (0.0-5.0) H 09/29/16 06:22 Basophils % 0.1 % (0.0-2.0) 09/29/16 06:22 Neutrophils (Manual) 86 % (40-80) H 09/15/16 05:40 Lymphocytes 9 % (20-50) L 09/15/16 05:40 Monocytes 4 % (2-10) 09/15/16 05:40 Eosinophils 1 % (0-5) 09/09/16 07:39 Basophils 1 % (0-3) 09/09/16 07:39 Platelet Estimate ADEQUATE (NORMAL) 09/15/16 05:40 Platelet Morphology NORMAL (NORMAL) 09/15/16 05:40 Poikilocytosis 1+ 09/08/16 06:41 Anisocytosis 1+ 09/13/16 06:22 Ovalocytes 1+ 09/08/16 06:41 RBC Morph Micro Appear NORMAL (NORMAL) 09/15/16 05:40 PT 9.8 SECONDS (9.5-11.5) 08/31/16 08:20 INR 0.99 (0.5-1.4) 08/31/16 08:20 Specimen Source Arterial 08/31/16 07:36 Sample Site Right Radial 08/31/16 07:36 pH 7.42 (7.35-7.45) 08/31/16 07:36 pCO2 42.0 mmHg (35.0-45.0) 08/31/16 07:36 pO2 53.0 mmHg (80.0-100.0) L 08/31/16 07:36 HCO3 27.2 mmol/L (20.0-26.0) H 08/31/16 07:36 Base Excess 2.4 mmol/L (-3.0-3.0) 08/31/16 07:36 O2 Saturation 88.0 % (92.0-100.0) L 08/31/16 07:36 Praveen Test YES 08/31/16 07:36 Vent Rate NA 08/31/16 07:36 Inspired O2 21 08/31/16 07:36 Tidal Volume NA 08/31/16 07:36 PEEP NA 08/31/16 07:36 Pressure (ins/psv/peep) NA 08/31/16 07:36 Critical Value SH 08/31/16 07:36 Sodium 142 mEq/L (136-145) 09/29/16 06:22 Potassium 4.0 mEq/L (3.5-5.1) 09/29/16 06:22 Chloride 108 mEq/L (98-107) H 09/29/16 06:22 Carbon Dioxide 30.2 mEq/L (21.0-31.0) 09/29/16 06:22 Anion Gap 7.8 (7.0-16.0) 09/29/16 06:22 BUN 16 mg/dL (7-25) 09/29/16 06:22 Creatinine 0.6 mg/dL (0.7-1.3) L 09/29/16 06:22 Est GFR ( Amer) TNP 09/29/16 06:22 Est GFR (Non-Af Amer) TNP 09/29/16 06:22 BUN/Creatinine Ratio 26.7 09/29/16 06:22 Glucose 77 mg/dL (70-105) 09/29/16 06:22 POC Glucose 126 MG/DL (70 - 105) H 09/17/16 23:57 Hemoglobin A1c % 5.8 % (4.0-6.0) 09/03/16 09:20 Whole Bld Lactic Acid 1.32 mmol/L (0.60-1.99) 08/31/16 08:20 Calcium 9.3 mg/dL (8.6-10.3) 09/29/16 06:22 Magnesium 2.2 mg/dL (1.9-2.7) 09/06/16 05:55 Total Bilirubin 0.4 mg/dL (0.3-1.0) 09/25/16 06:15 AST 16 U/L (13-39) 09/25/16 06:15 ALT 23 U/L (7-52) 09/25/16 06:15 Alkaline Phosphatase 68 U/L (34-104) 09/25/16 06:15 Troponin I 0.02 ng/mL (0.01-0.05) 08/31/16 08:20 B-Natriuretic Peptide 129.0 pg/mL (5.0-100.0) H 09/06/16 05:55 Total Protein 5.9 gm/dL (6.0-8.3) L 09/25/16 06:15 Albumin 3.0 gm/dL (4.2-5.5) L 09/25/16 06:15 Globulin 2.9 gm/dL 09/25/16 06:15 Albumin/Globulin Ratio 1.0 (1.0-1.8) 09/25/16 06:15 TSH 0.39 uIU/ml (0.34-5.60) 08/31/16 08:20 Urine Source CLEAN C 09/03/16 17:00 Urine Color YELLOW 09/03/16 17:00 Urine Clarity CLEAR (CLEAR) 09/03/16 17:00 Urine pH 6.5 09/03/16 17:00 Ur Specific [place] 1.015 (1.005-1.030) 09/03/16 17:00 Urine Protein NEGATIVE mg/dL (NEGATIVE) 09/03/16 17:00 Urine Glucose (UA) NEGATIVE mg/dL (NEGATIVE) 09/03/16 17:00 Urine Ketones NEGATIVE mg/dL (NEGATIVE) 09/03/16 17:00 Urine Blood NEGATIVE (NEGATIVE) 09/03/16 17:00 Urine Nitrate NEGATIVE (NEGATIVE) 09/03/16 17:00 Urine Bilirubin NEGATIVE (NEGATIVE) 09/03/16 17:00 Urine Urobilinogen 0.2 E.U./dL (0.2 - 1.0) 09/03/16 17:00 Ur Leukocyte Esterase NEGATIVE (NEGATIVE) 09/03/16 17:00 Urine RBC NONE SEEN /hpf (0-5) 09/03/16 17:00 Urine WBC NONE SEEN /hpf (0-5) 09/03/16 17:00 Ur Epithelial Cells NONE SEEN /lpf (FEW) 09/03/16 17:00 Urine Bacteria NONE SEEN /hpf (NONE SEEN) 09/03/16 17:00 Vancomycin Trough 17.3 ug/mL (10-20) 09/06/16 09:00 RPR NONREACTIVE (NONREACTIVE) 08/31/16 08:20 - Physical Exam Vitals and I&O: Vital Signs Temp 96.4 F 10/01/16 08:00 Pulse 65 10/01/16 08:20 Resp 20 10/01/16 08:00 BP 119/69 10/01/16 08:20 Pulse Ox 98 10/01/16 08:00 Intake & Output 09/30/16 10/01/16 10/01/16 18:59 06:59 18:59 Intake Total 1550 120 Output Total 700 350 Balance 850 -230 Intake: Oral 1550 120 Output: Urine 700 350 Other: # Bowel Movements 1 Stool Characteristics Soft Soft Soft Active Medications: Current Medications Acetaminophen (Tylenol) 650 mg PO Q4HR PRN PRN Reason: Pain or Fever >101 Stop: 10/30/16 09:31 Acetylcysteine (Mucomyst 20%) 2 ml HHN Q6HRT [facility] Stop: 10/30/16 18:59 Last Admin: 10/01/16 12:09 Dose: 2 ml Albuterol Sulfate (Albuterol 2.5mg/3ml Neb Ud) 2.5 mg HHN QIDRT [facility] Stop: 10/30/16 12:59 Last Admin: 10/01/16 12:08 Dose: 2.5 mg Amiodarone HCl (Cordarone) 200 mg PO DAILY [facility] Stop: 10/31/16 08:59 Last Admin: 10/01/16 08:20 Dose: 200 mg Aspirin (Aspirin Chewable) 81 mg PO DAILY [facility] Stop: 10/31/16 08:59 Last Admin: 10/01/16 08:20 Dose: 81 mg Atorvastatin Calcium (Lipitor) 10 mg PO HS [facility] PRN Reason: Protocol Stop: 10/30/16 20:59 Last Admin: 09/30/16 20:53 Dose: 10 mg Bisacodyl (Dulcolax 10 Mg Supp) 10 mg RC Q72H PRN PRN Reason: Constipation Stop: 10/30/16 09:31 Budesonide (Pulmicort) 0.5 mg HHN Q12HRT [facility] Stop: 10/30/16 09:44 Last Admin: 10/01/16 07:33 Dose: 0.5 mg Buspirone HCl (Buspar) 10 mg PO TID [facility] Stop: 10/30/16 13:59 Last Admin: 10/01/16 08:20 Dose: 10 mg Donepezil HCl (Aricept) 10 mg PO HS [facility] Stop: 10/30/16 20:59 Last Admin: 09/30/16 20:53 Dose: 10 mg Furosemide (Lasix) 40 mg PO DAILY [facility] Stop: 11/30/16 08:59 Last Admin: 10/01/16 08:20 Dose: 40 mg Guaifenesin (Mucinex) 600 mg PO Q12HR PRN PRN Reason: Cough or Congestion Stop: 11/04/16 23:19 Last Admin: 09/25/16 01:14 Dose: 600 mg Ipratropium [place] (Atrovent Neb 0.5mg/2.5ml) 0.5 mg HHN Q6HRT [facility] Stop: 11/02/16 00:59 Last Admin: 10/01/16 12:09 Dose: 0.5 mg Magnesium Hydroxide (Milk Of Magnesia) 30 ml PO HS PRN PRN Reason: Constipation Stop: 10/30/16 09:31 Magnesium Hydroxide (Milk Of Magnesia) 30 ml PO DAILY PRN PRN Reason: Constipation Stop: 11/13/16 12:41 Montelukast Sodium (Singulair) 10 mg PO HS [facility] Stop: 10/30/16 20:59 Last Admin: 09/30/16 20:53 Dose: 10 mg Olanzapine (Zyprexa) 15 mg PO DAILY [facility] PRN Reason: Protocol Stop: 10/31/16 08:59 Last Admin: 10/01/16 08:20 Dose: 15 mg Ondansetron HCl (Zofran) 4 mg IV Q8H PRN PRN Reason: Nausea / Vomiting Stop: 10/30/16 09:34 Potassium Chloride (Klor-Con) 10 meq PO DAILY [facility] Stop: 11/30/16 08:59 Last Admin: 10/01/16 08:20 Dose: 10 meq Sodium Phosphate (Fleet Enema) 135 ml RC PRN PRN PRN Reason: Constipation Stop: 10/30/16 09:31 Tamsulosin HCl (Flomax) 0.4 mg PO HS [facility] Stop: 10/30/16 20:59 Last Admin: 09/30/16 20:52 Dose: 0.4 mg General: demented HEENT: NC/AT, PERRLA Neck: Supple Lungs: congested Cardiovascular: RRR, Normal S1, Normal S2 Abdomen: soft non-tender, globular, positive bowel sound Extremities: excoriation Neurological: no change, disorganized, unable to follow command - Procedures Procedures: Procedures Procedure Code Date ASSISTANCE WITH RESPIRATORY VENTILATION, <24 HRS, CPAP [id number] 06/29/16 EXCISION OF DUODENUM, ENDO, DIAGN [id number] 07/18/16 EXCISION OF ESOPHAGUS, ENDO, DIAGN [id number] 07/18/16 EXCISION OF STOMACH, ENDO, DIAGN [id number] 07/18/16 POS AIRWAY PRESSURE CPAP [id number] 06/29/16 Internal Medicine Assmt/Plan - Assessment Assessment: Pneumonia better acute Copd exacerbation acute Respiratory Failure htn dyslipidemia dementia debility, functional quad leukocytosis - Plan Plan: cont on o2 will decrease iv steroid ct chest noted will confer w pulm dw ip attorney an issue Nutritional Asmnt/Malnutr-PDOC - Dietary Evaluation Malnutrition Findings (Please click <Entered> for more info): Nutritional Asmnt/Malnutrition Start: 09/02/16 14: 33 Text: Status: Complete Freq: Document 09/02/16 14:34 GSUN (Rec: 09/02/16 14:52 [email or web address]) Nutritional Asmnt/Malnutrition Patient General Information Nutritional Screening High Risk Screening Diagnosis Pneumonia, acute respiratory failure, COPD exacerbation Pertinent Medical Hx/Surgical Hx HTN, CAD, asthma, COPD, dyslipidemia, PUD, GERD, dementia Subjective Information 75yo M from SNF. Pt was alert, appeared anxious during visit . Pt was admitted here once in past July and twice in past June. Pt was ordered pureed + nectar thick during previous two stays. Most recent swallow eval 06/26/16 ST recommended mech soft + nectar thick. Discussed with pt regarding diet texture and tolerance, pt denied difficulties chewing/ swallowing and expressed preference for current mech soft ground. Encouraged pt to inform RN if any diet texture intolerance noted, pt understood. PO intake 100% all 3 meals yesterday 09/01. Unable to lower pt's head for bedscale due to pt appeared anxious. Current Diet Order/ Nutrition Support Mech soft ground + nectar thick Pertinent Medications Dulcolax, D5, MOM, Solu-Medrol , Vancomycin, Zofran, Fleet Enema Pertinent Labs Reviewed. Glucose 105, 143, 145 Nutritional Hx/Data Height 1.73 m Height (Calculated Centimeters) 172.7 Current Weight (lbs) 73.482 kg Weight (Calculated Kilograms) 73.5 Weight (Calculated Grams) 79412.0 Usual body Weight (lbs) 161 [place] Body Weight 154lb ([place]) Recent Weight Change No Weight Status Approriate GI Symptoms Food Allergies No Cultural/Ethnic/Yarsanism Belief Unknown. Usual diet at home Unknown. Skin Integrity/Comment: Ruddy 11. Skin intact. Current %PO Good (75-100%) Estimated Nutritional Goals BEE in Kcals: Using Current wt Calories/Kcals/Kg 30-35kcal/kg Kcals Calculated 2205-2573kcal Protein: Using Current wt Protein g/k.2-1.4g/kg Protein Calculated 88-103g/kg Fluid: ml 2205-2573ml (1ml/kcal) Nutritional Problem 1. Problem Problem Increased kcal and prot needs related to Etiology hypermetabolic stated aeb Signs/Symptoms: pneumonia, COPD exacerbation, acute respiratory failure Intervention/Recommendation Comments 1. Continue with [facility] soft ground + necatar thick diet ( refer to subjective information in nutrition assessment). Continue to monitor and supervise during meal time. Expected Outcomes/Goals Expected Outcomes/Goals 1. PO intake to meet at least 75% of estimated nutritional needs. Physician Parameters for PEM Serum Albumin (g/dl) 3.5 - 5.0 (Normal)
[2016-10-01] MEDS: Atorvastatin Calcium 10 MG TAB PO SCH (21:36)
[2016-10-02] MEDS: Ipratropium Neb 0.5 mg/2.5 mL UD HHN SCH ×4 (00:07→19:28)
[2016-10-02] MEDS: Albuterol Nebulizer 2.5mg/3mL HHN SCH ×4 (07:19→19:21)
[2016-10-02] MEDS: Budesonide 0.5 Mg/2 mL Ud HHN SCH ×2 (07:19→19:21)
[2016-10-02] MEDS: Furosemide 40 mg/4mL UDC PO SCH (09:03)
[2016-10-02] MEDS: Potassium Chloride 10 mEq ER Tab PO SCH (09:04)
[2016-10-02] MEDS: Aspirin 81mg Chewable Tab PO SCH (09:04)
--- NOTE | 2016-10-02 12:50 | Internal Medicine Prog Note ---
Internal Medicine Subjective - Subjective Service Date: 10/02/16 Patient seen and examined:: with staff Patient is:: awake Per staff patient is:: no adverse event Internal Medicine Objective - Results Result Diagrams: 09/29/16 06:22 09/29/16 06:22 Recent Labs: Laboratory Last Values WBC 5.6 Th/cmm (4.8-10.8) 09/29/16 06:22 RBC 3.74 Mil/cmm (3.80-5.80) L 09/29/16 06:22 Hgb 11.2 gm/dL (12.6-17.4) L 09/29/16 06:22 Hct 32.8 % (39.0-49.0) L 09/29/16 06:22 MCV 87.7 fl (80-99) 09/29/16 06:22 MCH 30.0 pg (27.0-31.0) 09/29/16 06:22 MCHC Differential 34.2 pg (28.0-36.0) 09/29/16 06:22 RDW 15.4 % (11.5-20.0) 09/29/16 06:22 Plt Count 353 Th/cmm (150-400) D 09/29/16 06:22 MPV 7.1 fl 09/29/16 06:22 Neutrophils % 62.9 % (40.0-80.0) 09/29/16 06:22 Band Neutrophils % 1 % (0-10) 09/15/16 05:40 Lymphocytes % 23.4 % (20.0-50.0) 09/29/16 06:22 Monocytes % 8.3 % (2.0-10.0) 09/29/16 06:22 Eosinophils % 5.3 % (0.0-5.0) H 09/29/16 06:22 Basophils % 0.1 % (0.0-2.0) 09/29/16 06:22 Neutrophils (Manual) 86 % (40-80) H 09/15/16 05:40 Lymphocytes 9 % (20-50) L 09/15/16 05:40 Monocytes 4 % (2-10) 09/15/16 05:40 Eosinophils 1 % (0-5) 09/09/16 07:39 Basophils 1 % (0-3) 09/09/16 07:39 Platelet Estimate ADEQUATE (NORMAL) 09/15/16 05:40 Platelet Morphology NORMAL (NORMAL) 09/15/16 05:40 Poikilocytosis 1+ 09/08/16 06:41 Anisocytosis 1+ 09/13/16 06:22 Ovalocytes 1+ 09/08/16 06:41 RBC Morph Micro Appear NORMAL (NORMAL) 09/15/16 05:40 PT 9.8 SECONDS (9.5-11.5) 08/31/16 08:20 INR 0.99 (0.5-1.4) 08/31/16 08:20 Specimen Source Arterial 08/31/16 07:36 Sample Site Right Radial 08/31/16 07:36 pH 7.42 (7.35-7.45) 08/31/16 07:36 pCO2 42.0 mmHg (35.0-45.0) 08/31/16 07:36 pO2 53.0 mmHg (80.0-100.0) L 08/31/16 07:36 HCO3 27.2 mmol/L (20.0-26.0) H 08/31/16 07:36 Base Excess 2.4 mmol/L (-3.0-3.0) 08/31/16 07:36 O2 Saturation 88.0 % (92.0-100.0) L 08/31/16 07:36 Praveen Test YES 08/31/16 07:36 Vent Rate NA 08/31/16 07:36 Inspired O2 21 08/31/16 07:36 Tidal Volume NA 08/31/16 07:36 PEEP NA 08/31/16 07:36 Pressure (ins/psv/peep) NA 08/31/16 07:36 Critical Value SH 08/31/16 07:36 Sodium 142 mEq/L (136-145) 09/29/16 06:22 Potassium 4.0 mEq/L (3.5-5.1) 09/29/16 06:22 Chloride 108 mEq/L (98-107) H 09/29/16 06:22 Carbon Dioxide 30.2 mEq/L (21.0-31.0) 09/29/16 06:22 Anion Gap 7.8 (7.0-16.0) 09/29/16 06:22 BUN 16 mg/dL (7-25) 09/29/16 06:22 Creatinine 0.6 mg/dL (0.7-1.3) L 09/29/16 06:22 Est GFR ( Amer) TNP 09/29/16 06:22 Est GFR (Non-Af Amer) TNP 09/29/16 06:22 BUN/Creatinine Ratio 26.7 09/29/16 06:22 Glucose 77 mg/dL (70-105) 09/29/16 06:22 POC Glucose 126 MG/DL (70 - 105) H 09/17/16 23:57 Hemoglobin A1c % 5.8 % (4.0-6.0) 09/03/16 09:20 Whole Bld Lactic Acid 1.32 mmol/L (0.60-1.99) 08/31/16 08:20 Calcium 9.3 mg/dL (8.6-10.3) 09/29/16 06:22 Magnesium 2.2 mg/dL (1.9-2.7) 09/06/16 05:55 Total Bilirubin 0.4 mg/dL (0.3-1.0) 09/25/16 06:15 AST 16 U/L (13-39) 09/25/16 06:15 ALT 23 U/L (7-52) 09/25/16 06:15 Alkaline Phosphatase 68 U/L (34-104) 09/25/16 06:15 Troponin I 0.02 ng/mL (0.01-0.05) 08/31/16 08:20 B-Natriuretic Peptide 129.0 pg/mL (5.0-100.0) H 09/06/16 05:55 Total Protein 5.9 gm/dL (6.0-8.3) L 09/25/16 06:15 Albumin 3.0 gm/dL (4.2-5.5) L 09/25/16 06:15 Globulin 2.9 gm/dL 09/25/16 06:15 Albumin/Globulin Ratio 1.0 (1.0-1.8) 09/25/16 06:15 TSH 0.39 uIU/ml (0.34-5.60) 08/31/16 08:20 Urine Source CLEAN C 09/03/16 17:00 Urine Color YELLOW 09/03/16 17:00 Urine Clarity CLEAR (CLEAR) 09/03/16 17:00 Urine pH 6.5 02/28/17 17:00 Ur Specific [place] 1.015 (1.005-1.030) 09/03/16 17:00 Urine Protein NEGATIVE mg/dL (NEGATIVE) 09/03/16 17:00 Urine Glucose (UA) NEGATIVE mg/dL (NEGATIVE) 09/03/16 17:00 Urine Ketones NEGATIVE mg/dL (NEGATIVE) 09/03/16 17:00 Urine Blood NEGATIVE (NEGATIVE) 09/03/16 17:00 Urine Nitrate NEGATIVE (NEGATIVE) 09/03/16 17:00 Urine Bilirubin NEGATIVE (NEGATIVE) 09/03/16 17:00 Urine Urobilinogen 0.2 E.U./dL (0.2 - 1.0) 09/03/16 17:00 Ur Leukocyte Esterase NEGATIVE (NEGATIVE) 09/03/16 17:00 Urine RBC NONE SEEN /hpf (0-5) 09/03/16 17:00 Urine WBC NONE SEEN /hpf (0-5) 09/03/16 17:00 Ur Epithelial Cells NONE SEEN /lpf (FEW) 09/03/16 17:00 Urine Bacteria NONE SEEN /hpf (NONE SEEN) 09/03/16 17:00 Vancomycin Trough 17.3 ug/mL (10-20) 09/06/16 09:00 RPR NONREACTIVE (NONREACTIVE) 08/31/16 08:20 - Physical Exam Vitals and I&O: Vital Signs Temp 97.0 F 10/02/16 08:00 Pulse 70 10/02/16 12:32 Resp 18 10/02/16 12:32 BP 127/70 10/02/16 09:03 Pulse Ox 96 10/02/16 12:32 Intake & Output 10/01/16 10/02/16 10/02/16 18:59 06:59 18:59 Intake Total 1500 118 Output Total 1999 300 Balance -500 -182 Intake: Oral 1500 118 Output: Urine 1999 300 Other: Stool Characteristics Soft Soft Soft Active Medications: Current Medications Acetaminophen (Tylenol) 650 mg PO Q4HR PRN PRN Reason: Pain or Fever >101 Stop: 10/30/16 09:31 Acetylcysteine (Mucomyst 20%) 2 ml HHN Q6HRT [facility] Stop: 10/30/16 18:59 Last Admin: 10/02/16 12:31 Dose: 2 ml Albuterol Sulfate (Albuterol 2.5mg/3ml Neb Ud) 2.5 mg HHN QIDRT [facility] Stop: 10/30/16 12:59 Last Admin: 10/02/16 12:31 Dose: 2.5 mg Amiodarone HCl (Cordarone) 200 mg PO DAILY [facility] Stop: 10/31/16 08:59 Last Admin: 10/02/16 09:03 Dose: 200 mg Aspirin (Aspirin Chewable) 81 mg PO DAILY [facility] Stop: 10/31/16 08:59 Last Admin: 10/02/16 09:04 Dose: 81 mg Atorvastatin Calcium (Lipitor) 10 mg PO HS [facility] PRN Reason: Protocol Stop: 10/30/16 20:59 Last Admin: 10/01/16 21:36 Dose: 10 mg Bisacodyl (Dulcolax 10 Mg Supp) 10 mg RC Q72H PRN PRN Reason: Constipation Stop: 10/30/16 09:31 Budesonide (Pulmicort) 0.5 mg HHN Q12HRT [facility] Stop: 10/30/16 09:44 Last Admin: 10/02/16 07:19 Dose: 0.5 mg Buspirone HCl (Buspar) 10 mg PO TID [facility] Stop: 10/30/16 13:59 Last Admin: 10/02/16 09:04 Dose: 10 mg Donepezil HCl (Aricept) 10 mg PO HS [facility] Stop: 10/30/16 20:59 Last Admin: 10/01/16 21:36 Dose: 10 mg Furosemide (Lasix) 40 mg PO DAILY [facility] Stop: 11/30/16 08:59 Last Admin: 10/02/16 09:03 Dose: 40 mg Guaifenesin (Mucinex) 600 mg PO Q12HR PRN PRN Reason: Cough or Congestion Stop: 11/04/16 23:19 Last Admin: 09/25/16 01:14 Dose: 600 mg Ipratropium [place] (Atrovent Neb 0.5mg/2.5ml) 0.5 mg HHN Q6HRT [facility] Stop: 11/02/16 00:59 Last Admin: 10/02/16 12:32 Dose: 0.5 mg Magnesium Hydroxide (Milk Of Magnesia) 30 ml PO HS PRN PRN Reason: Constipation Stop: 10/30/16 09:31 Magnesium Hydroxide (Milk Of Magnesia) 30 ml PO DAILY PRN PRN Reason: Constipation Stop: 11/13/16 12:41 Montelukast Sodium (Singulair) 10 mg PO HS [facility] Stop: 10/30/16 20:59 Last Admin: 10/01/16 21:36 Dose: 10 mg Olanzapine (Zyprexa) 15 mg PO DAILY [facility] PRN Reason: Protocol Stop: 10/31/16 08:59 Last Admin: 10/02/16 09:03 Dose: 15 mg Ondansetron HCl (Zofran) 4 mg IV Q8H PRN PRN Reason: Nausea / Vomiting Stop: 10/30/16 09:34 Potassium Chloride (Klor-Con) 10 meq PO DAILY [facility] Stop: 11/30/16 08:59 Last Admin: 10/02/16 09:04 Dose: 10 meq Sodium Phosphate (Fleet Enema) 135 ml RC PRN PRN PRN Reason: Constipation Stop: 10/30/16 09:31 Tamsulosin HCl (Flomax) 0.4 mg PO HS [facility] Stop: 10/30/16 20:59 Last Admin: 10/01/16 21:36 Dose: 0.4 mg General: alert HEENT: NC/AT, PERRLA Lungs: ronchi Cardiovascular: RRR, Normal S1, Normal S2, without murmur Abdomen: soft non-tender, non-distended, positive bowel sound Extremities: clear Neurological: no change - Procedures Procedures: Procedures Procedure Code Date ASSISTANCE WITH RESPIRATORY VENTILATION, <24 HRS, CPAP [id number] 06/29/16 EXCISION OF DUODENUM, ENDO, DIAGN [id number] 07/18/16 EXCISION OF ESOPHAGUS, ENDO, DIAGN [id number] 07/18/16 EXCISION OF STOMACH, ENDO, DIAGN [id number] 07/18/16 POS AIRWAY PRESSURE CPAP 34575 06/29/16 Internal Medicine Assmt/Plan - Assessment Assessment: Pneumonia Copd exacerbation Respiratory Failure htn dyslipidemia dementia - Plan Plan: awaiting for snf placement bronchodilators continue ivabx supplemental o2 cpm Nutritional Asmnt/Malnutr-PDOC - Dietary Evaluation Malnutrition Findings (Please click <Entered> for more info): Nutritional Asmnt/Malnutrition Start: 09/02/16 14: 33 Text: Status: Complete Freq: Document 09/02/16 14:34 GSUN (Rec: 09/02/16 14:52 KAILEE [id number]) Nutritional Asmnt/Malnutrition Patient General Information Nutritional Screening High Risk Screening Diagnosis Pneumonia, acute respiratory failure, COPD exacerbation Pertinent Medical Hx/Surgical Hx HTN, CAD, asthma, COPD, dyslipidemia, PUD, GERD, dementia Subjective Information 75yo M from SNF. Pt was alert, appeared anxious during visit . Pt was admitted here once in past July and twice in past June. Pt was ordered pureed + nectar thick during previous two stays. Most recent swallow eval 06/26/16 ST recommended mech soft + nectar thick. Discussed with pt regarding diet texture and tolerance, pt denied difficulties chewing/ swallowing and expressed preference for current mech soft ground. Encouraged pt to inform RN if any diet texture intolerance noted, pt understood. PO intake 100% all 3 meals yesterday 09/01. Unable to lower pt's head for bedscale due to pt appeared anxious. Current Diet Order/ Nutrition Support Mech soft ground + nectar thick Pertinent Medications Dulcolax, D5, MOM, Solu-Medrol , Vancomycin, Zofran, Fleet Enema Pertinent Labs Reviewed. Glucose 105, 143, 145 Nutritional Hx/Data Height 5 ft 8 in Height (Calculated Centimeters) 172.7 Current Weight (lbs) 162 lb Weight (Calculated Kilograms) 73.5 Weight (Calculated Grams) 40218.0 Usual body Weight (lbs) 161 [place] Body Weight 154lb ([place]) Recent Weight Change No Weight Status Approriate GI Symptoms Food Allergies No Cultural/Ethnic/Orthodoxy Belief Unknown. Usual diet at home Unknown. Skin Integrity/Comment: Ruddy 11. Skin intact. Current %PO Good (75-100%) Estimated Nutritional Goals BEE in Kcals: Using Current wt Calories/Kcals/Kg 30-35kcal/kg Kcals Calculated 2205-2573kcal Protein: Using Current wt Protein g/k.2-1.4g/kg Protein Calculated 88-103g/kg Fluid: ml 2205-2573ml (1ml/kcal) Nutritional Problem 1. Problem Problem Increased kcal and prot needs related to Etiology hypermetabolic stated aeb Signs/Symptoms: pneumonia, COPD exacerbation, acute respiratory failure Intervention/Recommendation Comments 1. Continue with mech soft ground + necatar thick diet ( refer to subjective information in nutrition assessment). Continue to monitor and supervise during meal time. Expected Outcomes/Goals Expected Outcomes/Goals 1. PO intake to meet at least 75% of estimated nutritional needs. Physician Parameters for PEM Serum Albumin (g/dl) 3.5 - 5.0 (Normal)
[2016-10-02] MEDS: Atorvastatin Calcium 10 MG TAB PO SCH (21:42)
[2016-10-03] MEDS: Ipratropium Neb 0.5 mg/2.5 mL UD HHN SCH ×4 (02:02→19:40)
[2016-10-03] MEDS: Budesonide 0.5 Mg/2 mL Ud HHN SCH ×2 (07:43→19:40)
[2016-10-03] MEDS: Albuterol Nebulizer 2.5mg/3mL HHN SCH ×4 (07:43→19:39)
[2016-10-03] MEDS: Aspirin 81mg Chewable Tab PO SCH (09:49)
[2016-10-03] MEDS: Furosemide 40 mg/4mL UDC PO SCH (09:52)
[2016-10-03] MEDS: Potassium Chloride 10 mEq ER Tab PO SCH (09:53)
--- NOTE | 2016-10-03 13:33 | Internal Medicine Prog Note ---
Internal Medicine Subjective - Subjective Patient seen and examined:: with staff, chart reviewed Patient is:: awake, verbal, interactive Patient Complaints of:: congestion Per staff patient is:: no episodes of fall, confused Internal Medicine Objective - Results Result Diagrams: 09/29/16 06:22 09/29/16 06:22 Recent Labs: Laboratory Last Values WBC 5.6 Th/cmm (4.8-10.8) 09/29/16 06:22 RBC 3.74 Mil/cmm (3.80-5.80) L 09/29/16 06:22 Hgb 11.2 gm/dL (12.6-17.4) L 09/29/16 06:22 Hct 32.8 % (39.0-49.0) L 09/29/16 06:22 MCV 87.7 fl (80-99) 09/29/16 06:22 MCH 30.0 pg (27.0-31.0) 09/29/16 06:22 MCHC Differential 34.2 pg (28.0-36.0) 09/29/16 06:22 RDW 15.4 % (11.5-20.0) 09/29/16 06:22 Plt Count 353 Th/cmm (150-400) D 09/29/16 06:22 MPV 7.1 fl 09/29/16 06:22 Neutrophils % 62.9 % (40.0-80.0) 09/29/16 06:22 Band Neutrophils % 1 % (0-10) 09/15/16 05:40 Lymphocytes % 23.4 % (20.0-50.0) 09/29/16 06:22 Monocytes % 8.3 % (2.0-10.0) 09/29/16 06:22 Eosinophils % 5.3 % (0.0-5.0) H 09/29/16 06:22 Basophils % 0.1 % (0.0-2.0) 09/29/16 06:22 Neutrophils (Manual) 86 % (40-80) H 09/15/16 05:40 Lymphocytes 9 % (20-50) L 09/15/16 05:40 Monocytes 4 % (2-10) 09/15/16 05:40 Eosinophils 1 % (0-5) 09/09/16 07:39 Basophils 1 % (0-3) 09/09/16 07:39 Platelet Estimate ADEQUATE (NORMAL) 09/15/16 05:40 Platelet Morphology NORMAL (NORMAL) 09/15/16 05:40 Poikilocytosis 1+ 09/08/16 06:41 Anisocytosis 1+ 09/13/16 06:22 Ovalocytes 1+ 09/08/16 06:41 RBC Morph Micro Appear NORMAL (NORMAL) 09/15/16 05:40 PT 9.8 SECONDS (9.5-11.5) 08/31/16 08:20 INR 0.99 (0.5-1.4) 08/31/16 08:20 Specimen Source Arterial 08/31/16 07:36 Sample Site Right Radial 08/31/16 07:36 pH 7.42 (7.35-7.45) 08/31/16 07:36 pCO2 42.0 mmHg (35.0-45.0) 08/31/16 07:36 pO2 53.0 mmHg (80.0-100.0) L 08/31/16 07:36 HCO3 27.2 mmol/L (20.0-26.0) H 08/31/16 07:36 Base Excess 2.4 mmol/L (-3.0-3.0) 08/31/16 07:36 O2 Saturation 88.0 % (92.0-100.0) L 08/31/16 07:36 Praveen Test YES 08/31/16 07:36 Vent Rate NA 08/31/16 07:36 Inspired O2 21 08/31/16 07:36 Tidal Volume NA 08/31/16 07:36 PEEP NA 08/31/16 07:36 Pressure (ins/psv/peep) NA 08/31/16 07:36 Critical Value SH 08/31/16 07:36 Sodium 142 mEq/L (136-145) 09/29/16 06:22 Potassium 4.0 mEq/L (3.5-5.1) 09/29/16 06:22 Chloride 108 mEq/L (98-107) H 09/29/16 06:22 Carbon Dioxide 30.2 mEq/L (21.0-31.0) 09/29/16 06:22 Anion Gap 7.8 (7.0-16.0) 09/29/16 06:22 BUN 16 mg/dL (7-25) 09/29/16 06:22 Creatinine 0.6 mg/dL (0.7-1.3) L 09/29/16 06:22 Est GFR ( Amer) TNP 09/29/16 06:22 Est GFR (Non-Af Amer) TNP 09/29/16 06:22 BUN/Creatinine Ratio 26.7 09/29/16 06:22 Glucose 77 mg/dL (70-105) 09/29/16 06:22 POC Glucose 126 MG/DL (70 - 105) H 09/17/16 23:57 Hemoglobin A1c % 5.8 % (4.0-6.0) 09/03/16 09:20 Whole Bld Lactic Acid 1.32 mmol/L (0.60-1.99) 08/31/16 08:20 Calcium 9.3 mg/dL (8.6-10.3) 09/29/16 06:22 Magnesium 2.2 mg/dL (1.9-2.7) 09/06/16 05:55 Total Bilirubin 0.4 mg/dL (0.3-1.0) 09/25/16 06:15 AST 16 U/L (13-39) 09/25/16 06:15 ALT 23 U/L (7-52) 09/25/16 06:15 Alkaline Phosphatase 68 U/L (34-104) 09/25/16 06:15 Troponin I 0.02 ng/mL (0.01-0.05) 08/31/16 08:20 B-Natriuretic Peptide 129.0 pg/mL (5.0-100.0) H 09/06/16 05:55 Total Protein 5.9 gm/dL (6.0-8.3) L 09/25/16 06:15 Albumin 3.0 gm/dL (4.2-5.5) L 09/25/16 06:15 Globulin 2.9 gm/dL 09/25/16 06:15 Albumin/Globulin Ratio 1.0 (1.0-1.8) 09/25/16 06:15 TSH 0.39 uIU/ml (0.34-5.60) 08/31/16 08:20 Urine Source CLEAN C 09/03/16 17:00 Urine Color YELLOW 09/03/16 17:00 Urine Clarity CLEAR (CLEAR) 09/03/16 17:00 Urine pH 6.5 09/03/16 17:00 Ur Specific [place] 1.015 (1.005-1.030) 09/03/16 17:00 Urine Protein NEGATIVE mg/dL (NEGATIVE) 09/03/16 17:00 Urine Glucose (UA) NEGATIVE mg/dL (NEGATIVE) 09/03/16 17:00 Urine Ketones NEGATIVE mg/dL (NEGATIVE) 09/03/16 17:00 Urine Blood NEGATIVE (NEGATIVE) 09/03/16 17:00 Urine Nitrate NEGATIVE (NEGATIVE) 09/03/16 17:00 Urine Bilirubin NEGATIVE (NEGATIVE) 09/03/16 17:00 Urine Urobilinogen 0.2 E.U./dL (0.2 - 1.0) 09/03/16 17:00 Ur Leukocyte Esterase NEGATIVE (NEGATIVE) 09/03/16 17:00 Urine RBC NONE SEEN /hpf (0-5) 09/03/16 17:00 Urine WBC NONE SEEN /hpf (0-5) 09/03/16 17:00 Ur Epithelial Cells NONE SEEN /lpf (FEW) 09/03/16 17:00 Urine Bacteria NONE SEEN /hpf (NONE SEEN) 09/03/16 17:00 Vancomycin Trough 17.3 ug/mL (10-20) 09/06/16 09:00 RPR NONREACTIVE (NONREACTIVE) 08/31/16 08:20 - Physical Exam Vitals and I&O: Vital Signs Temp 96.9 F 10/03/16 08:00 Pulse 51 10/03/16 11:46 Resp 17 10/03/16 08:00 BP 139/67 10/03/16 09:52 Pulse Ox 99 10/03/16 07:56 Intake & Output 10/02/16 10/03/16 10/03/16 18:59 06:59 18:59 Intake Total 1500 200 Output Total 1600 450 Balance -100 -250 Intake: Oral 1500 200 Output: Urine 1600 450 Other: # Bowel Movements 2 Stool Characteristics Soft Soft Active Medications: Current Medications Acetaminophen (Tylenol) 650 mg PO Q4HR PRN PRN Reason: Pain or Fever >101 Stop: 10/30/16 09:31 Acetylcysteine (Mucomyst 20%) 2 ml HHN Q6HRT [facility] Stop: 10/30/16 18:59 Last Admin: 10/03/16 12:51 Dose: 2 ml Albuterol Sulfate (Albuterol 2.5mg/3ml Neb Ud) 2.5 mg HHN QIDRT [facility] Stop: 10/30/16 12:59 Last Admin: 10/03/16 12:50 Dose: 2.5 mg Amiodarone HCl (Cordarone) 200 mg PO DAILY [facility] Stop: 10/31/16 08:59 Last Admin: 10/03/16 11:46 Dose: Not Given Aspirin (Aspirin Chewable) 81 mg PO DAILY [facility] Stop: 10/31/16 08:59 Last Admin: 10/03/16 09:49 Dose: 81 mg Atorvastatin Calcium (Lipitor) 10 mg PO HS [facility] PRN Reason: Protocol Stop: 10/30/16 20:59 Last Admin: 10/02/16 21:42 Dose: 10 mg Bisacodyl (Dulcolax 10 Mg Supp) 10 mg RC Q72H PRN PRN Reason: Constipation Stop: 10/30/16 09:31 Budesonide (Pulmicort) 0.5 mg HHN Q12HRT [facility] Stop: 10/30/16 09:44 Last Admin: 10/03/16 07:43 Dose: 0.5 mg Buspirone HCl (Buspar) 10 mg PO TID [facility] Stop: 10/30/16 13:59 Last Admin: 10/03/16 09:50 Dose: 10 mg Donepezil HCl (Aricept) 10 mg PO HS [facility] Stop: 10/30/16 20:59 Last Admin: 10/02/16 21:42 Dose: 10 mg Furosemide (Lasix) 40 mg PO DAILY [facility] Stop: 11/30/16 08:59 Last Admin: 10/03/16 09:52 Dose: 40 mg Guaifenesin (Mucinex) 600 mg PO Q12HR PRN PRN Reason: Cough or Congestion Stop: 11/04/16 23:19 Last Admin: 09/25/16 01:14 Dose: 600 mg Ipratropium [place] (Atrovent Neb 0.5mg/2.5ml) 0.5 mg HHN Q6HRT [facility] Stop: 11/02/16 00:59 Last Admin: 10/03/16 12:50 Dose: 0.5 mg Magnesium Hydroxide (Milk Of Magnesia) 30 ml PO HS PRN PRN Reason: Constipation Stop: 10/30/16 09:31 Magnesium Hydroxide (Milk Of Magnesia) 30 ml PO DAILY PRN PRN Reason: Constipation Stop: 11/13/16 12:41 Montelukast Sodium (Singulair) 10 mg PO HS [facility] Stop: 10/30/16 20:59 Last Admin: 10/02/16 21:42 Dose: 10 mg Olanzapine (Zyprexa) 15 mg PO DAILY [facility] PRN Reason: Protocol Stop: 10/31/16 08:59 Last Admin: 10/03/16 09:49 Dose: 15 mg Ondansetron HCl (Zofran) 4 mg IV Q8H PRN PRN Reason: Nausea / Vomiting Stop: 10/30/16 09:34 Last Admin: 10/02/16 21:42 Dose: 4 mg Potassium Chloride (Klor-Con) 10 meq PO DAILY [facility] Stop: 11/30/16 08:59 Last Admin: 10/03/16 09:53 Dose: 10 meq Sodium Phosphate (Fleet Enema) 135 ml RC PRN PRN PRN Reason: Constipation Stop: 10/30/16 09:31 Tamsulosin HCl (Flomax) 0.4 mg PO HS [facility] Stop: 10/30/16 20:59 Last Admin: 10/02/16 21:42 Dose: 0.4 mg General: congested HEENT: NC/AT, PERRLA Neck: Supple, No JVD Lungs: congested, rales Cardiovascular: RRR, Normal S1, Normal S2 Abdomen: soft non-tender, globular, positive bowel sound Extremities: excoriation, contracture Neurological: no change, disorganized, unsteady, unable to follow command - Procedures Procedures: Procedures Procedure Code Date ASSISTANCE WITH RESPIRATORY VENTILATION, <24 HRS, CPAP [id number] 06/29/16 EXCISION OF DUODENUM, ENDO, DIAGN [id number] 07/18/16 EXCISION OF ESOPHAGUS, ENDO, DIAGN [id number] 07/18/16 EXCISION OF STOMACH, ENDO, DIAGN [id number] 07/18/16 POS AIRWAY PRESSURE CPAP 11923 06/29/16 Internal Medicine Assmt/Plan - Assessment Assessment: Pneumonia better acute Copd exacerbation acute Respiratory Failure htn dyslipidemia dementia debility, functional quad leukocytosis - Plan Plan: cont on o2 will decrease iv steroid ct chest noted will 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 Pt was alert, appeared anxious during visit . Pt was admitted here once in past July and twice in past June. Pt was ordered pureed + nectar thick during previous two stays. Most recent swallow eval 06/26/16 ST recommended mech soft + nectar thick. Discussed with pt regarding diet texture and tolerance, pt denied difficulties chewing/ swallowing and expressed preference for current mech soft ground. Encouraged pt to inform RN if any diet texture intolerance noted, pt understood. PO intake 100% all 3 meals yesterday 09/01. Unable to lower pt's head for bedscale due to pt appeared anxious. Current Diet Order/ Nutrition Support Mech soft ground + nectar thick Pertinent Medications Dulcolax, D5, MOM, Solu-Medrol , Vancomycin, Zofran, Fleet Enema Pertinent Labs Reviewed. Glucose 105, 143, 145 Nutritional Hx/Data Height 1.73 m Height (Calculated Centimeters) 172.7 Current Weight (lbs) 73.482 kg Weight (Calculated Kilograms) 73.5 Weight (Calculated Grams) 59770.0 Usual body Weight (lbs) 161 [place] Body Weight 154lb ([place]) Recent Weight Change No Weight Status Approriate GI Symptoms Food Allergies No Cultural/Ethnic/Taoist Belief Unknown. Usual diet at home Unknown. Skin Integrity/Comment: Ruddy 11. Skin intact. Current %PO Good (75-100%) Estimated Nutritional Goals BEE in Kcals: Using Current wt Calories/Kcals/Kg 30-35kcal/kg Kcals Calculated 2205-2573kcal Protein: Using Current wt Protein g/k.2-1.4g/kg Protein Calculated 88-103g/kg Fluid: ml 2205-2573ml (1ml/kcal) Nutritional Problem 1. Problem Problem Increased kcal and prot needs related to Etiology hypermetabolic stated aeb Signs/Symptoms: pneumonia, COPD exacerbation, acute respiratory failure Intervention/Recommendation Comments 1. Continue with [facility] soft ground + necatar thick diet ( refer to subjective information in nutrition assessment). Continue to monitor and supervise during meal time. Expected Outcomes/Goals Expected Outcomes/Goals 1. PO intake to meet at least 75% of estimated nutritional needs. Physician Parameters for PEM Serum Albumin (g/dl) 3.5 - 5.0 (Normal)
[2016-10-03] MEDS: Atorvastatin Calcium 10 MG TAB PO SCH (21:46)
[2016-10-04] MEDS: Ipratropium Neb 0.5 mg/2.5 mL UD HHN SCH ×3 (00:37→14:28)
[2016-10-04] MEDS: Albuterol Nebulizer 2.5mg/3mL HHN SCH ×3 (07:16→14:27)
[2016-10-04] MEDS: Budesonide 0.5 Mg/2 mL Ud HHN SCH (07:17)
--- NOTE | 2016-10-04 08:34 | Diagnostic Imaging Report ---
Portable chest x-ray HISTORY: Shortness of breath Compared with prior exam of September 30, 2016, persistent density remains in the left lower hemithorax. Question pleural fluid. Underlying consolidation and/or atelectasis in the left lower lobe cannot be excluded. IMPRESSION: Little change in the cardiopulmonary status
[2016-10-04] MEDS: Aspirin 81mg Chewable Tab PO SCH (08:50)
[2016-10-04] MEDS: Potassium Chloride 10 mEq ER Tab PO SCH (08:50)
[2016-10-04] MEDS: Furosemide 40 mg/4mL UDC PO SCH (09:00)
--- NOTE | 2016-10-13 09:56 | Discharge Summary ---
FINAL DIAGNOSES: Pneumonia, acute respiratory failure, hypertension, dyslipidemia, chronic obstructive pulmonary disease exacerbation. HISTORY OF PRESENT ILLNESS: A 76-year-old male, resident of [facility], was brought to [facility] for 1-day history of fever and congestion. The patient was recently here in July of this year, being treated for the same reason. Also, the patient was noted to have shortness of breath and some audible wheezes. PHYSICAL EXAMINATION: GENERAL: The patient is well developed and well nourished in no acute distress. VITAL SIGNS: Stable. HEENT: Head is normocephalic and atraumatic. NECK: Supple. No mass. LUNGS: Clear bilaterally. HEART: Regular rate and rhythm. ABDOMEN: Soft and nontender. HOSPITAL COURSE: During the hospital stay, the patient was admitted to the med/surg unit. The patient had chest x-ray done, impression persistent density in lower hemothorax ____ pleural fluid. Also CT of the chest also obtained and the impression is persistent elevation of left hemidiaphragm. The patient was kept on empiric IV antibiotics, also on IV steroids and bronchodilators and supplemental oxygen. The patient had issues with placement. His rn case management were looking for a place for the patient to stay at a short-term nursing facility. The patient had a repeat chest x-ray done and the impression is no significant change. The patient was stable and did not have fever during this discharge. gui developer were able to have the patient go back to [facility]. CONDITION UPON DISCHARGE: Fair. DISPOSITION: [facility]. [facility]# [id number]
== END 2016-10-04 16:00 | DRG 871 ==
LOC: ER 07:20 → MSI 08:59 → UNDODISIN 09-29 14:15 → MSI 10-03 11:18
PROVIDERS: ADMIT Family Medicine; ATTEND Internal Medicine
DX: A41.9 Sepsis, unspecified organism (principal); J15.6 Pneumonia due to other Gram-negative bacteria; J96.00 Acute respiratory failure, unspecified whether with hypoxia or hypercapnia; R53.2 Functional quadriplegia; J44.1 Chronic obstructive pulmonary disease with (acute) exacerbation; J44.0 Chronic obstructive pulmonary disease with (acute) lower respiratory infection; I10 Essential (primary) hypertension; E78.5 Hyperlipidemia, unspecified; I25.10 Atherosclerotic heart disease of native coronary artery without angina pectoris; J45.909 Unspecified asthma, uncomplicated; K27.9 Peptic ulcer, site unspecified, unspecified as acute or chronic, without hemorrhage or perforation; K21.9 Gastro-esophageal reflux disease without esophagitis; F03.90 Unspecified dementia, unspecified severity, without behavioral disturbance, psychotic disturbance, mood disturbance, and anxiety; D64.9 Anemia, unspecified; Z88.1 Allergy status to other antibiotic agents; Z95.1 Presence of aortocoronary bypass graft; Z87.891 Personal history of nicotine dependence; Z91.14 Patient's other noncompliance with medication regimen
CPT/HCPCS: 36415-UA; 36600-90; 71010-TC; 71250-TC; 80048-TC; 80053-TC; 80202-TC; 81001-TC; 82803-TC; 82948-90; 83036-90; 83605; 83735-TC; 83880-TC; 84443-TC; 84484-TC; 85007-TC; 85025-TC; 85027-TC; 85610-TC; 86592-TC; 87070; 90779; 93005; 94640; 94760; J0692; J0696; J1450; J1940; J2405; J2920; J2930; J3370; J7030; J7613; Z7610

== ENCOUNTER 2016-10-16 22:43 | Inpatient (IN) | payer MEDICARE, MEDICAID ==
--- NOTE | 2016-10-16 23:23 | ED Physician Chart ---
Chief Complaint/HPI - Patient Information Date Seen:: 10/16/16 Time Seen:: 23:17 Chief Complaint:: sob History of Present Illness:: pt sent from [place] for cough and sob. has copd hx he is severe sob on arrival w rales audible across rm. he leans to side and is drooling and questionable if protecting airway well. he is markedly dyspneic. Allergies:: Allergies Allergy/AdvReac Type Severity Reaction Status Date / Time [facility] Allergy Verified 10/16/16 23:02 Vitals:: Vital Signs - 8 hr 10/16/16 23:02 Temp 97.7 F HR 119 RR 28 BP 116/90 O2 Sat % 98 Review of Systems - Review of Systems General/Constitutional: No fever, No chills, No weight loss, No weakness, No diaphoresis, No edema, No loss of appetite Skin: No skin lesions, No rash, No bruising Head: No headache, No light-headedness Eyes: No loss of vision, No pain, No diplopia ENT: No earache, No nasal drainage, No sore throat, No tinnitus Neck: No neck pain, No swelling, No thyromegaly, No stiffness, No mass noted Cardio Vascular: No chest pain, No palpitations, No PND, No orthopnea, No edema Pulmonary: SOB, Cough, No sputum, No wheezing GI: No nausea, No vomiting, No diarrhea, No pain, No melena, No hematochezia, No constipation, No hematemesis G/U: No dysuria, No frequency, No hematuria Musculoskeletal: No bone or joint pain, No back pain, No muscle pain Endocrine: No polyuria, No polydipsia Psychiatric: No prior psych history, No depression, No anxiety, No suicidal ideation Hematopoietic: No bruising, No lymphadenopathy Allergic/Immuno: No urticaria, No angioedema Neurological: No syncope, No focal symptoms, No weakness, No paresthesia, No headache, No seizure, No dizziness, Confusion, No vertigo Past Medical History - Past Medical History Past Medical History: HTN, Asthma/COPD, PUD/GERD, Dementia, Other (resp failure , dysphagia, anemia, metastatic melanoma, prostate ca) Social History: Care Facility Medication: Reviewed Family Medical History - Family Member Father History Unknown: Yes Ethnicity: Non- Living Status: Unknown Hx Family Cancer: No Hx Family Coronary Artery Disease: No Hx Family Congestive Heart Failure: No Hx Family Hypertension: No Hx Family Stroke: No Hx Family Diabetes: No Hx Family Seizures: No Hx Family Dementia: No Hx Family AIDS: No Hx Family HIV: No Hx Family COPD: No Hx Family Hepatitis: No Hx Family Psychiatric Problems: No Hx Family Tuberculosis: No Physical Exam - Physical Examination General/Constitutional: Awake, Well-developed, well-nourished, Alert, No distress Other Gen/Cons comments:: severe distress w marked dyspnea at rest. barely verbal. drooling and leaning over to side in bed (too weak to sit up). audible rales from across rm. mild leg edema. pt unable to be a [facility] historian at this point. Head: Atraumatic Eyes: Lids, conjuctiva normal, PERRL, EOMI Skin: Nl inspection, No rash, No skin lesions, No ecchymosis, Well hydrated, No lymphadenopathy ENMT: External ears, nose nl, Nasal exam nl, Lips, teeth, gums nl Neck: Nontender, Full ROM w/o pain, No JVD, No nuchal rigidity, No bruit, No mass, No stridor Other Respiratory comments:: sev distress w cough and diffuse rales. Cardio Vascular: RRR, No murmur, gallop, rubs, NL S1 S2 GI: No tenderness/rebounding/guarding, No organomegaly, No hernia, Normal BS's, Nondistended, No mass/bruits, No McBurney tenderness : No CVA tenderness Extremities: No tenderness or effusion, Full ROM, normal strength in all extremities, No edema, Normal digits & nails Neuro/Psych: Alert/oriented, DTR's symmetric, Normal sensory exam, Normal motor strength, Mood normal, No focal deficits Misc: normal gait, Normal back, No paraspinal tenderness Labs/Radiology/EKG Results - Lab Results Results: Laboratory Tests 10/16/16 10/16/16 10/16/16 23:29 23:29 23:45 WBC RBC Hgb Hct MCV MCH MCHC Differential RDW Plt Count MPV Specimen Source arterial Sample Site right radial pH 7.43 pCO2 41.0 pO2 356.0 H HCO3 27.0 H Base Excess 2.6 O2 Saturation 100.0 Praveen Test yes Vent Rate n/a Inspired O2 100 Tidal Volume n/a PEEP n/a Pressure (ins/psv/peep) n/a Critical Value ab, dm Sodium 142 Potassium 4.4 Chloride 110 H Carbon Dioxide 23.6 Anion Gap 12.8 BUN 13 Creatinine 0.6 L Est GFR ( Amer) TNP Est GFR (Non-Af Amer) TNP BUN/Creatinine Ratio 21.7 Glucose 111 H Calcium 9.2 Total Bilirubin 0.4 AST 14 ALT 13 Alkaline Phosphatase 91 Troponin I 0.02 B-Natriuretic Peptide 29.2 Total Protein 6.5 Albumin 3.4 L Globulin 3.1 Albumin/Globulin Ratio 1.1 Carbamazepine < 2.0 L 10/17/16 00:19 WBC 20.3 H* D RBC 4.86 Hgb 14.1 D Hct 42.7 D MCV 87.9 MCH 29.1 MCHC Differential 33.1 RDW 15.0 Plt Count 362 MPV 8.1 Specimen Source Sample Site pH pCO2 pO2 HCO3 Base Excess O2 Saturation Praveen Test Vent Rate Inspired O2 Tidal Volume PEEP Pressure (ins/psv/peep) Critical Value Sodium Potassium Chloride Carbon Dioxide Anion Gap BUN Creatinine Est GFR ( Amer) Est GFR (Non-Af Amer) BUN/Creatinine Ratio Glucose Calcium Total Bilirubin AST ALT Alkaline Phosphatase Troponin I B-Natriuretic Peptide Total Protein Albumin Globulin Albumin/Globulin Ratio Carbamazepine - Radiology Results Results: cxr lrg effusion/infiltrate at left base. mild chf? - EKG Interpretations EKG Time:: 00:25 Rate & Rhythm: rate 125 nsr [place]: 81 Intervals: nrml Comments:: rt BBB, sinus tachy Assessment - Assessment Critical Care Time: 60 Excludes all billable procedures: Yes This condition life threatening/high prob of deterioration: Yes Assessment/Comments:: acute intubation and airway support. abx and fluid overload mgt. - Procedures Procedures:: pt intubated w glidescope. versed 1mg iv before procedure. 7.5 ett placed past chords...well visualized w glidescope. no trauma. only 1 attempt needed. pt vomited up stomach contents AFter the intubation...was rolled to side and suctioned. there is noted some lrg creamy sercetions within ett. there was clearly no emesis prior to intubation completed. additional 1 mg versed and zofran iv given after intubation. cxr ordered. pt sao2 in mid 90s after intubation ED Septic Shock - . Is Septic Shock (SBP<90, OR Lactate>4 mmol\L) present?: Yes - <6hrs of presentation: Vital Signs: Vital Signs - 8 hr 10/16/16 23:02 Temp 97.7 F HR 119 RR 28 BP 116/90 O2 Sat % 98 Assessment of Lungs: Rales Assessment of Heart: RRR, No Murmur EKG Interpretation: Documented in Result Capillary refill evaluation: Capillary refill < 2 secs Skin Exam: Edema, Other (cool extr) - Time of Reassessment Time of Reassessment: 00:50 Reassessment (Disposition) - Reassessment Reassessment:: sudhakar Quiroz will admit to icu. giving staff phone orders. pt seems much improved from arrival. handling ett ok. Reassessment Condition:: Improved - Diagnosis Diagnosis:: 1 pneumonia 2 r/o sepsis 3 fluid overload / pulmonary edema - Patient Disposition Admitted to:: ICU Condition at Disposition:: Improved
[2016-10-16] MEDS ORDERED: Midazolam 1mg/ml 2 ml vial IV ONE (23:29)
[2016-10-16] MEDS ORDERED: Midazolam 1mg/ml 2 ml vial IV STA (23:36)
[2016-10-16 23:58] LABS: ALB/GLOB RATIO 1.1 (1.0-1.8); ALKALINE PHOSPHATASE 91 U/L (34-104); ANION GAP 12.8 (7.0-16.0); BILIRUBIN,TOTAL 0.4 mg/dL (0.3-1.0); BUN - UREA NITROGEN 13 mg/dL (7-25); BUN/CREATININE RATIO 21.7; CALCIUM SERUM 9.2 mg/dL (8.6-10.3); CARBON DIOXIDE 23.6 mEq/L (21.0-31.0); CHLORIDE 110 mEq/L (98-107); CREATININE - SERUM 0.6 mg/dL (0.7-1.3); GLUCOSE 111 mg/dL (70-105); POTASSIUM SERUM 4.4 mEq/L (3.5-5.1); SGOT 14 U/L (13-39); SGPT/ALT 13 U/L (7-52); SODIUM SERUM 142 mEq/L (136-145)
[2016-10-16 23:59] LABS: TROP I 0.02 ng/mL (0.01-0.05)
[2016-10-17] MEDS ORDERED: Piperacillin Sodium/Tazobact 3.375 gm Vial IV ONE (00:07)
[2016-10-17 00:12] LABS: BNP 29.2 pg/mL (5.0-100.0)
[2016-10-17 00:43] LABS: MEAN CELL VOLUME 87.9 fl (80-99); MEAN CORPUSCULAR HEMOGLOBIN 29.1 pg (27.0-31.0); MEAN CORPUSCULAR HGB CONC 33.1 pg (28.0-36.0); MEAN PLATELET VOLUME 8.1 fl; PLATELET COUNT 362 Th/cmm (150-400); RED BLOOD COUNT 4.86 Mil/cmm (3.80-5.80)
[2016-10-17 00:44] LABS: pH 7.43 (7.35-7.45)
[2016-10-17 00:45] LABS: ALLEN TEST yes; BE(B) 2.6 mEq/L (-3.0-3.0); FIO2 100
[2016-10-17 00:45] LABS: HEMATOCRIT 42.7 % (39.0-49.0); HEMOGLOBIN 14.1 gm/dL (12.6-17.4); WHITE BLOOD COUNT 20.3 Th/cmm (4.8-10.8)
[2016-10-17] MEDS ORDERED: Fleet Enema 135 mL RC PRN (00:46)
[2016-10-17] MEDS ORDERED: Magnesium Hydroxide (MOM) 30 mL UDC PO PRN (00:46)
[2016-10-17] MEDS ORDERED: guaiFENesin 200 MG/10 ML UDC PO PRN (00:49)
[2016-10-17 00:56] LABS: BAND NEUTROPHILE 4 % (0-10); NEUTROPHILS 90 % (40-80); PLATELET ESTIMATE ADEQUATE (NORMAL); TOTAL CELLS COUNTED 100
[2016-10-17] MEDS: D5-0.45NS 1,000 ML IV SCH ×2 (02:00→20:31)
[2016-10-17] MEDS ORDERED: Pneumococcal Vaccine 0.5 mL Vial IM ONE (03:54)
--- NOTE | 2016-10-17 04:35 | Admit Criteria Form ---
Admit Criteria Forms - Admit Criteria Diagnosis: PNEUMONIA, COMMUNITY ACQUIRED Clinical Indications for Admission to Inpatient Care ( Place 'X' for any and all applicable criteria): Admission is indicated for ANY ONE of the following (1)(2)(3): [ ]I. Hypoxemia indicated by ANY ONE of the following: [ ]a) Oxygen saturation less than 90% while breathing room air [ ]b) PO2 less than 60 mm Hg (8.0 kPa) while breathing room air [ ]c) Chronic lung disease with significant deterioration from baseline oxygenation [x ]II. Appropriate diagnostic testing and treatment unavailable in outpatient or recovery facility (eg,testing or infection control measures unavailable(10) [ ]III. Moderate-risk or high-risk category patients (Pneumonia Severity Index (PSI) class IV or V, or CURB-65 score of 3 or greater). [ ]IV. Outpatient treatment failure as indicated by ANY ONE of the following(9) : [ ]a) Failure to respond to antibiotic (eg, resistant organism) [ ]b) Clinically significant adverse effects from medication (eg, vomiting) [ ]c) Complications of pneumonia (eg, empyema, bacteremia) [ ]d) Significant worsening of comorbid cond necessitating inpatient care (eg, chronic heart failure) [ ]V. Intermediate-risk category patients (eg, PSI class III or CURB-65 score 2) who do not improve with initial therapy and observation. [ ]. Immunocompromised patients (eg, AIDS, chronic steroid use) at moderate or high risk based on clinical evaluation. [ ]VII. Complicated pleural effusions (eg, exudative, loculated) [ ]VIII.Hemodynamic instability [ ] IX. Altered mental status that is severe or persistent. [ ]X. Dehydration that is severe or persistent. [ ]XI. Bacteremia [ ]XII. Respiratory finding (eg. tachypnea) that do not respond to outpatient or observation care treatment Extended stay beyond goal length of stay may be needed for (20) [ ]a) Unclear diagnosis [ ]b) Pleural disease [ ]c) Severe pneumonia or treatment failure (25 [ ]d) Respiratory failure (anticipate invasive or noninvasive ventilatory support) [ ]e) Abnormal serum electrolytes (serum Na concentration less than 135 mEq/L (mmol/L) (32)(33) [ ]f) Clinically significant comorbid illness (eg, heart failure, atrial fibrillation with rapid heart rate, alcohol withdrawal, renal insufficiency)(34)(35) [ ]g) Comorbid acute exacerbation of COPD(36) [ ]h) Concomitant diagnosis of malignancy that may be associated with malnutrition, immunologic impairment, or bronchial obstruction. [ ]i) Concomitant altered mental status [ ]j) Culture-identified Gram-negative or antibiotic-resistant organism (eg, Pseudomonas, methicillin-resistant Staphylococcus aureus)(30) [ ]k) Healthcare-associated pneumonia The original [facility] content created by [employer] has been revised. The portions of the content which have been revised are identified through the use of italic text or in bold, and [facility] has neither reviewed nor approved the modified material. All other unmodified content is copyright [facility]. Please see references footnoted in the original [facility] [employer] edition 2016 Admit Criteria Met?: Yes
[2016-10-17 06:19] LABS: HEMATOCRIT 38.7 % (39.0-49.0); MEAN CELL VOLUME 88.3 fl (80-99); MEAN CORPUSCULAR HEMOGLOBIN 29.6 pg (27.0-31.0); MEAN CORPUSCULAR HGB CONC 33.6 pg (28.0-36.0); MEAN PLATELET VOLUME 7.8 fl; PLATELET COUNT 344 Th/cmm (150-400); RED BLOOD COUNT 4.39 Mil/cmm (3.80-5.80); RED CELL DISTRIBUTION WIDTH 15.2 % (11.5-20.0)
[2016-10-17 06:35] LABS: WHITE BLOOD COUNT 25.5 Th/cmm (4.8-10.8)
[2016-10-17] MEDS: Albuterol Nebulizer 2.5mg/3mL HHN SCH ×4 (06:44→18:49)
[2016-10-17 06:45] LABS: ALB/GLOB RATIO 1.1 (1.0-1.8); ALKALINE PHOSPHATASE 77 U/L (34-104); ANION GAP 11.2 (7.0-16.0); BILIRUBIN,TOTAL 0.6 mg/dL (0.3-1.0); BUN - UREA NITROGEN 12 mg/dL (7-25); BUN/CREATININE RATIO 17.1; CALCIUM SERUM 8.8 mg/dL (8.6-10.3); CARBON DIOXIDE 25.5 mEq/L (21.0-31.0); CHLORIDE 108 mEq/L (98-107); CREATININE - SERUM 0.7 mg/dL (0.7-1.3); GLUCOSE 147 mg/dL (70-105); MAGNESIUM 1.8 mg/dL (1.9-2.7); POTASSIUM SERUM 3.7 mEq/L (3.5-5.1); SGOT 12 U/L (13-39); SGPT/ALT 11 U/L (7-52); SODIUM SERUM 141 mEq/L (136-145)
[2016-10-17] MEDS: Ipratropium Neb 0.5 mg/2.5 mL UD HHN SCH ×4 (06:45→18:48)
[2016-10-17 07:04] LABS: BAND NEUTROPHILE 5 % (0-10); NEUTROPHILS 87 % (40-80); TOTAL CELLS COUNTED 100
[2016-10-17 07:30] LABS: TSH 0.47 uIU/ml (0.34-5.60)
[2016-10-17 09:15] LABS: ABG SOURCE Arterial; BE(B) 8.1 mEq/L (-3.0-3.0); HCO3 31.3 mEq/L (20.0-26.0); pH 7.47 (7.35-7.45)
[2016-10-17 09:16] LABS: FIO2 60; MECH RATE 14; MECH VT 500
--- NOTE | 2016-10-17 09:50 | Diagnostic Imaging Report ---
CHEST X-RAY: AP view INDICATION: NG tube placement COMPARISON: Chest x-ray 10/16/2016 FINDINGS: NG tube is in place with tip along the fundal portion of the stomach. ET tube is seen with tip 1.5 cm above the Deonte. Bilateral small pleural effusions are noted. Postsurgical changes are seen throughout the left hemithorax. Mild cardiomegaly is noted. IMPRESSION: NG tube within the fundal portion of the stomach ET tube with tip 1.5 cm above the deonte Bilateral small effusions. Pneumonia of the left lung base cannot be excluded. Mild cardiomegaly.
--- NOTE | 2016-10-17 09:51 | Diagnostic Imaging Report ---
CHEST X-RAY: AP view INDICATION: Shortness of breath COMPARISON: Chest x-ray 10/04/2016 FINDINGS: ET tube is seen with tip 3.2 cm above the [place]. There is elevation of the left hemidiaphragm. Small left effusion is noted. Mild cardiomegaly is noted. Gas-filled loops of bowel are seen along the upper abdomen. IMPRESSION: Interval intubation with tip 3.2 cm above the Piper. Elevation of the left hemidiaphragm with small left effusion. Note that atelectasis versus infiltrate at the left lung base cannot be excluded. Gas-filled loops of bowel in the upper abdomen, possibly representing an ileus. Clinical correlation recommended.
[2016-10-17] MEDS: Aspirin 81mg Chewable Tab PO SCH (10:18)
[2016-10-17] MEDS: Pantoprazole 40 mg EC Tab PO SCH ×2 (10:19→10:22)
[2016-10-17] MEDS: Pantoprazole 40 mg/Packet PO SCH ×2 (11:28→17:55)
[2016-10-17] MEDS ORDERED: Mag Sulfate 2gm/50mL Premix 2 GM/50 ML BAG IV ONE (13:16)
[2016-10-17 13:59] LABS: URINE BILIRUBIN NEGATIVE (NEGATIVE); URINE BLOOD NEGATIVE (NEGATIVE); URINE COLOR YELLOW; URINE GLUCOSE (UA) NEGATIVE (NEGATIVE); URINE KETONE NEGATIVE (NEGATIVE); URINE PROTEIN 30 mg/dL (NEGATIVE); URINE UROBILINOGEN 0.2 E.U./dL (0.2 - 1.0)
[2016-10-17 14:00] LABS: URINE BACTERIA 1+ /hpf (NONE SEEN); URINE EPITHELIAL CELLS OCCASIONAL /lpf (FEW); URINE RBC 0-1 /hpf (0-5); URINE WBC 0-2 /hpf (0-5)
[2016-10-17 14:07] LABS: URINE AMORPHOUS SEDIMENT MODERATE URATES (NONE SEEN)
[2016-10-17 16:09] LABS: INR 1.1 (0.5-1.4); PROTHROMBIN TIME (TEST) 11.5 SECONDS (9.5-11.5)
--- NOTE | 2016-10-17 16:33 | History & Physical ---
ADMIT DATE: 10/17/2016 CHIEF COMPLAINT: Respiratory distress. HISTORY OF PRESENT ILLNESS: This is a 76-year-old male with history of dementia, GERD, COPD, CAD and chronic respiratory insufficiency, was admitted from [facility] secondary to sudden respiratory distress. The patient was brought in the ER and found to have pneumonia and hypoxemia. The patient had to be intubated. The patient with white count of 23,000. The patient admitted to ICU. PAST MEDICAL HISTORY: As mentioned in history present illness. PAST SURGICAL HISTORY: This is limited. 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 ALLERGIES: LEVAQUIN. MEDICATIONS: The patient is on BuSpar, albuterol, Atrovent, Zyprexa, Tylenol, amiodarone, aspirin, Dulcolax, Aricept, fleet enema, magnesium hydroxide, Singulair and Flomax. FAMILY HISTORY: Noncontributory. SOCIAL HISTORY: The patient is in [facility]. The patient requiring 24-hour total care. REVIEW OF SYSTEMS: This is limited secondary to the patient's current mental state. We will try to obtain more detailed review of systems at a later date by talking to family members, Maicol Maradiaga, who is a sister from [place], number [phone], medical case worker, Srinath Wheat, . Also try to get information from the patient's nursing staff at [facility], [place], number [phone]. PHYSICAL EXAMINATION: VITAL SIGNS: Blood pressure 106/63, respiration 14, pulse 84, temperature 97.9. GENERAL: Elderly male who appears his stated age. NECK: Bilateral temporal wasting. HEENT: Positive scalp lesion. Positive ____. LUNGS: Decreased breath sounds, few rhonchi. HEART: Regular rate and rhythm with systolic ejection murmur. ABDOMEN: Soft, nontender, globular. Positive NG tube. EXTREMITIES: Positive excoriation. Atrophy. NEUROLOGIC: Limited. LABORATORY DATA: WBC at 25.5, hemoglobin 13, platelets ____, pH ____, pCO2 of 45, pO2 of 110, bicarb 31. Sodium 141, potassium 3.7, BUN 12, creatinine 0.7, blood sugar 147. Lactic acid was 2.1. Repeat was normal. Magnesium 1.8. Albumin 3.3. ASSESSMENT AND PLAN: Acute respiratory failure, pneumonia, coronary artery disease, chronic obstructive pulmonary disease, gastroesophageal reflux disease, dementia, leukocytosis, lactic acidosis, mild protein-calorie malnutrition, hyperglycemia. PLAN: We will continue the patient on IV antibiotic and gentle IV hydration. We will monitor for any signs or symptoms of fluid overload. ____ as well as blood culture. Continue on gentle hydration. We will monitor for any signs of fluid overload. The patient on vanco. Pulmonary has been consulted. Case was discussed with waterfront director at [facility] and nursing staff. JOB# [id number]
[2016-10-17] MEDS ORDERED: Probiotic Screen MC PRN (16:46)
[2016-10-17] MEDS: Budesonide 0.5 Mg/2 mL Ud HHN SCH (18:49)
[2016-10-17] MEDS: Atorvastatin Calcium 10 MG TAB PO SCH (20:32)
--- NOTE | 2016-10-18 06:37 | Consultation ---
DATE OF CONSULTATION: 10/17/[address] Quiroz for this consultation. HISTORY OF PRESENT ILLNESS: This is a 76 year old male known to me from last admission who presented with acute respiratory failure and was required to be intubated, placed on a ventilator. The patient has been admitted recently and stayed here for a while, discharged after a prolonged treatment with IV antibiotics, nebulizer treatment. The patient now is intubated, sedated, and unable to give any further history. PAST MEDICAL HISTORY: As above. SOCIAL HISTORY: History of smoking in the past. REVIEW OF SYSTEMS: Unable to obtain because of the patient's condition. PHYSICAL EXAMINATION: VITAL SIGNS: Temperature 98.8, pulse is 83, respirations 14, blood pressure 114/69, and saturation 100%. CHEST: Rhonchi bilaterally, fair air entry. HEART: Regular rate and rhythm. ABDOMEN: Soft. EXTREMITIES: No edema. LABORATORY DATA: WBC is 25.5, hemoglobin 13.0, hematocrit 33.7, and platelets 344. ABGs: pH 7.47, pCO2 of 45, pO2 of 110, bicarbonate 31, and saturation 99%. potassium 3.7, BUN is 12, creatinine 0.7. Chest x-ray shows bibasilar effusion, left lower lobe infiltrate and some volume loss at left base. IMPRESSION: 1. Respiratory failure. 2. Pneumonia. 3. Sepsis. 4. Chronic obstructive pulmonary disease exacerbation. 5. Dementia probably Plan 1- vent support 2- antibiotics. 3- nebulizer. 4- f/u CXR Thank you very much. I will follow the patient with you. JOB# [id number] [facility]ITAL[facility]
[2016-10-18] MEDS: Ipratropium Neb 0.5 mg/2.5 mL UD HHN SCH ×4 (06:44→18:55)
[2016-10-18] MEDS: Albuterol Nebulizer 2.5mg/3mL HHN SCH ×4 (06:44→18:55)
[2016-10-18] MEDS: Budesonide 0.5 Mg/2 mL Ud HHN SCH ×2 (06:44→18:55)
[2016-10-18 07:36] LABS: HEMOGLOBIN 11.2 gm/dL (12.6-17.4); MEAN CELL VOLUME 86.5 fl (80-99); MEAN CORPUSCULAR HEMOGLOBIN 29.4 pg (27.0-31.0); RED BLOOD COUNT 3.82 Mil/cmm (3.80-5.80)
[2016-10-18 07:43] LABS: ANION GAP 1.2 (7.0-16.0); BUN - UREA NITROGEN 15 mg/dL (7-25); CALCIUM SERUM 8.3 mg/dL (8.6-10.3); CARBON DIOXIDE 28.3 mEq/L (21.0-31.0); CHLORIDE 109 mEq/L (98-107); CREATININE - SERUM 0.6 mg/dL (0.7-1.3); GLUCOSE 111 mg/dL (70-105); MAGNESIUM 2.1 mg/dL (1.9-2.7); PHOSPHOROUS 2.5 mg/dL (2.5-5.0); POTASSIUM SERUM 3.5 mEq/L (3.5-5.1); SODIUM SERUM 135 mEq/L (136-145)
[2016-10-18 08:33] LABS: PLATELET COUNT 274 Th/cmm (150-400); WHITE BLOOD COUNT 10.5 Th/cmm (4.8-10.8)
[2016-10-18 08:40] LABS: NEUTROPHILS 87 % (40-80); TOTAL CELLS COUNTED 100
[2016-10-18 08:42] LABS: BAND NEUTROPHILE 2 % (0-10); PLATELET ESTIMATE ADEQUATE (NORMAL); PLATELET MORPHOLOGY NORMAL (NORMAL)
[2016-10-18] MEDS: Lactobacillus Rhamnosus 10 Billion CFU Capsule PO SCH (08:49)
[2016-10-18] MEDS: Pantoprazole 40 mg/Packet PO SCH ×2 (08:49→16:48)
[2016-10-18] MEDS: Aspirin 81mg Chewable Tab PO SCH (08:50)
[2016-10-18] MEDS: Chlorhexidine Gluconate 0.12% 15mL Mouthwash MM SCH (08:50)
[2016-10-18 09:46] LABS: ABG SOURCE Arterial; ALLEN TEST YES; BE(B) 6.1 mEq/L (-3.0-3.0); HCO3 29.6 mEq/L (20.0-26.0); pH 7.46 (7.35-7.45)
[2016-10-18 09:47] LABS: FIO2 30; MECH RATE 14; MECH VT 500
--- NOTE | 2016-10-18 10:26 | Diagnostic Imaging Report ---
CHEST X-RAY: AP view INDICATION: PICC line placement, shortness of breath COMPARISON: Chest x-ray 10/17/2016 FINDINGS: ET tube is seen with tip 2.6 cm above the deonte. NG tube is visualized with tip in the stomach. Right PICC line is in place with tip in SVC. Small left effusion is seen with left basal infiltrate. Borderline prominent heart is noted. IMPRESSION: Interval PICC line placement with tip at the SVC. ET tube with tip 2.6 cm above the Deonte. Small left effusion and left basal infiltrates.
[2016-10-18] MEDS: D5-0.45NS 1,000 ML IV SCH ×2 (11:05→13:42)
[2016-10-18 11:10] LABS: FOLIC ACID >20.0 ng/mL (>3.0)
--- NOTE | 2016-10-18 13:30 | Internal Medicine Prog Note ---
Internal Medicine Subjective - Subjective Patient seen and examined:: with staff, chart reviewed Patient is:: asleep, non-verbal, non-interactive Patient Complaints of:: congestion Per staff patient is:: no adverse event, agitated, confused Internal Medicine Objective - Results Result Diagrams: 10/18/16 07:07 10/18/16 07:07 Recent Labs: Laboratory Last Values WBC 10.5 Th/cmm (4.8-10.8) D 10/18/16 07:07 RBC 3.82 Mil/cmm (3.80-5.80) 10/18/16 07:07 Hgb 11.2 gm/dL (12.6-17.4) L 10/18/16 07:07 Hct 33.0 % (39.0-49.0) L D 10/18/16 07:07 MCV 86.5 fl (80-99) 10/18/16 07:07 MCH 29.4 pg (27.0-31.0) 10/18/16 07:07 MCHC Differential 34.0 pg (28.0-36.0) 10/18/16 07:07 RDW 15.0 % (11.5-20.0) 10/18/16 07:07 Plt Count 274 Th/cmm (150-400) D 10/18/16 07:07 MPV 8.0 fl 10/18/16 07:07 Band Neutrophils % 2 % (0-10) 10/18/16 07:07 Neutrophils (Manual) 87 % (40-80) H 10/18/16 07:07 Lymphocytes 5 % (20-50) L 10/18/16 07:07 Monocytes 6 % (2-10) 10/18/16 07:07 Platelet Estimate ADEQUATE (NORMAL) 10/18/16 07:07 Platelet Morphology NORMAL (NORMAL) 10/18/16 07:07 RBC Morph Micro Appear NORMAL (NORMAL) 10/18/16 07:07 PT 11.5 SECONDS (9.5-11.5) 10/17/16 15:45 INR 1.10 (0.5-1.4) 10/17/16 15:45 PTT (Actin FS) 27.0 SECONDS (26.0-38.0) 10/17/16 15:45 Specimen Source Arterial 10/18/16 08:57 Sample Site Left Radial 10/18/16 08:57 pH 7.46 (7.35-7.45) H 10/18/16 08:57 pCO2 43.0 mmHg (35.0-45.0) 10/18/16 08:57 pO2 64.0 mmHg (80.0-100.0) L 10/18/16 08:57 HCO3 29.6 mEq/L (20.0-26.0) H 10/18/16 08:57 Base Excess 6.1 mEq/L (-3.0-3.0) H 10/18/16 08:57 O2 Saturation 93.0 % (92.0-100.0) 10/18/16 08:57 Praveen Test YES 10/18/16 08:57 Vent Rate 14 10/18/16 08:57 Inspired O2 30 10/18/16 08:57 Tidal Volume 500 10/18/16 08:57 PEEP 5 10/18/16 08:57 Pressure (ins/psv/peep) NA 10/18/16 08:57 Critical Value JACKY 10/18/16 08:57 Sodium 135 mEq/L (136-145) L 10/18/16 07:07 Potassium 3.5 mEq/L (3.5-5.1) 10/18/16 07:07 Chloride 109 mEq/L (98-107) H 10/18/16 07:07 Carbon Dioxide 28.3 mEq/L (21.0-31.0) 10/18/16 07:07 Anion Gap 1.2 (7.0-16.0) L 10/18/16 07:07 BUN 15 mg/dL (7-25) 10/18/16 07:07 Creatinine 0.6 mg/dL (0.7-1.3) L 10/18/16 07:07 Est GFR ( Amer) TNP 10/18/16 07:07 Est GFR (Non-Af Amer) TNP 10/18/16 07:07 BUN/Creatinine Ratio 25.0 10/18/16 07:07 Glucose 111 mg/dL (70-105) H 10/18/16 07:07 Whole Bld Lactic Acid 1.17 mmol/L (0.60-1.99) 10/17/16 06:10 Calcium 8.3 mg/dL (8.6-10.3) L 10/18/16 07:07 Phosphorus 2.5 mg/dL (2.5-5.0) 10/18/16 07:07 Magnesium 2.1 mg/dL (1.9-2.7) 10/18/16 07:07 Total Bilirubin 0.6 mg/dL (0.3-1.0) 10/17/16 06:10 AST 12 U/L (13-39) L 10/17/16 06:10 ALT 11 U/L (7-52) 10/17/16 06:10 Alkaline Phosphatase 77 U/L (34-104) 10/17/16 06:10 Ammonia 52 umol/L (16-53) 10/18/16 07:07 Troponin I 0.02 ng/mL (0.01-0.05) 10/16/16 23:29 B-Natriuretic Peptide 38.5 pg/mL (5.0-100.0) 10/18/16 07:07 Total Protein 6.2 gm/dL (6.0-8.3) 10/17/16 06:10 Albumin 3.3 gm/dL (4.2-5.5) L 10/17/16 06:10 Globulin 2.9 gm/dL 10/17/16 06:10 Albumin/Globulin Ratio 1.1 (1.0-1.8) 10/17/16 06:10 Vitamin B12 476 pg/mL (211-946) 10/17/16 06:10 Folic Acid >20.0 ng/mL (>3.0) 10/17/16 06:10 TSH 0.47 uIU/ml (0.34-5.60) 10/17/16 06:10 Urine Source [place] 10/17/16 13:35 Urine Color YELLOW 10/17/16 13:35 Urine Clarity SLIGHT HAZY (CLEAR) 10/17/16 13:35 Urine pH 5.0 10/17/16 13:35 Ur Specific [place] 1.025 (1.005-1.030) 10/17/16 13:35 Urine Protein 30 mg/dL (NEGATIVE) H 10/17/16 13:35 Urine Glucose (UA) NEGATIVE mg/dL (NEGATIVE) 10/17/16 13:35 Urine Ketones NEGATIVE mg/dL (NEGATIVE) 10/17/16 13:35 Urine Blood NEGATIVE (NEGATIVE) 10/17/16 13:35 Urine Nitrate NEGATIVE (NEGATIVE) 10/17/16 13:35 Urine Bilirubin NEGATIVE (NEGATIVE) 10/17/16 13:35 Urine Urobilinogen 0.2 E.U./dL (0.2 - 1.0) 10/17/16 13:35 Ur Leukocyte Esterase NEGATIVE (NEGATIVE) 10/17/16 13:35 Urine RBC 0-1 /hpf (0-5) 10/17/16 13:35 Urine WBC 0-2 /hpf (0-5) 10/17/16 13:35 Ur Epithelial Cells OCCASIONAL /lpf (FEW) 10/17/16 13:35 Amorphous Sediment MODERATE URATES (NONE SEEN) 10/17/16 13:35 Urine Bacteria 1+ /hpf (NONE SEEN) H 10/17/16 13:35 Vancomycin Trough 15.0 ug/mL (10-20) 10/18/16 09:30 Carbamazepine < 2.0 ug/ml (4.0-12.0) L 10/16/16 23:29 - Physical Exam Vitals and I&O: Vital Signs Temp 98.3 F 10/18/16 12:00 Pulse 81 10/18/16 13:10 Resp 15 10/18/16 12:00 BP 129/58 10/18/16 12:00 Pulse Ox 98 10/18/16 13:10 Intake & Output 10/17/16 10/18/16 10/18/16 18:59 06:59 18:59 Intake Total 8428 382 7856 Output Total 300 300 Balance 3236 866 5210 Intake: Intake, IV Amount 2471 385 6245 Cefepime 1 gm In Dextrose 50 50 5% 50 ml @ 100 mls/hr IV Q12H [facility] Rx#:[id number] D5-0.45NS 1,000 ml @ 70 1000 1000 mls/hr IV .[id number] [facility] Rx #:[id number] Mag Sulfate 2gm/50mL 50 Premix 2 gm In 50 ml @ 25 mls/hr IV X1 [facility] Rx#: [id number] Vancomycin HCl 1.25 gm In 250 250 Sodium Chloride 0.9% 250 ml @ 165 mls/hr IV Q12H [facility] Rx#:[id number] Other 120 150 Output: Urine 300 300 Other: # Voids 1 # Bowel Movements 0 0 Active Medications: Current Medications Acetaminophen (Tylenol) 650 mg PO Q4HR PRN PRN Reason: Pain or Fever >101 Stop: 12/16/16 00:48 Albuterol Sulfate (Albuterol 2.5mg/3ml Neb Ud) 2.5 mg HHN QIDRT [facility] Stop: 12/16/16 06:59 Last Admin: 10/18/16 10:39 Dose: 2.5 mg Amiodarone HCl (Cordarone) 200 mg PO DAILY [facility] Stop: 12/16/16 08:59 Last Admin: 10/18/16 08:50 Dose: Not Given Aspirin (Aspirin Chewable) 81 mg PO DAILY [facility] Stop: 12/16/16 08:59 Last Admin: 10/18/16 08:50 Dose: 81 mg Atorvastatin Calcium (Lipitor) 10 mg PO HS [facility] PRN Reason: Protocol Stop: 12/16/16 20:59 Last Admin: 10/17/16 20:32 Dose: 10 mg Bisacodyl (Dulcolax 10 Mg Supp) 10 mg RC Q72H PRN PRN Reason: Constipation Stop: 12/16/16 00:45 Budesonide (Pulmicort) 0.5 mg HHN BIDRT [facility] Stop: 12/16/16 18:59 Last Admin: 10/18/16 06:44 Dose: 0.5 mg Chlorhexidine Gluconate (Peridex) 15 ml MM 0800,1999 [facility] Stop: 12/17/16 07:59 Last Admin: 10/18/16 08:50 Dose: 15 ml Donepezil HCl (Aricept) 10 mg PO HS [facility] Stop: 12/16/16 20:59 Last Admin: 10/17/16 20:32 Dose: 10 mg Guaifenesin (Robitussin) 200 mg PO Q4HR PRN PRN Reason: Cough or Congestion Stop: 12/16/16 00:48 Heparin Sodium (Porcine) (Heparin) 5,000 units SUBQ Q12HR [facility] Stop: 12/16/16 08:59 Last Admin: 10/18/16 08:49 Dose: 5,000 units Cefepime HCl 1 gm/ Dextrose 50 mls @ 100 mls/hr IV Q12H [facility] Stop: 12/16/16 00:59 Last Infusion: 10/18/16 01:30 Dose: Infused Vancomycin HCl 1.25 gm/ Sodium (Chloride) 250 mls @ 165 mls/hr IV Q12H [facility] Stop: 12/16/16 09:59 Last Admin: 10/18/16 11:06 Dose: 165 mls/hr Ipratropium [place] (Atrovent Neb 0.5mg/2.5ml) 0.5 mg HHN QIDRT [facility] Stop: 12/16/16 06:59 Last Admin: 10/18/16 10:39 Dose: 0.5 mg Lactobacillus Rhamnosus (Culturelle) 1 each PO DAILY [facility] Stop: 12/17/16 08:59 Last Admin: 10/18/16 08:49 Dose: 1 each Lorazepam (Ativan) 1 mg IV Q4HR PRN; Protocol PRN Reason: Seizure Stop: 12/16/16 00:48 Last Admin: 10/18/16 02:25 Dose: 1 mg Magnesium Hydroxide (Milk Of Magnesia) 30 ml PO HS PRN PRN Reason: Constipation Stop: 12/16/16 00:45 Miscellaneous (Vancomycin Iv Per Pharmacy) 1 [facility] PRN [facility] Stop: 12/16/16 00:59 Miscellaneous (Probiotic Screen) 1 [facility] PRN PRN PRN Reason: PROTOCOL Stop: 12/16/16 16:45 Montelukast Sodium (Singulair) 10 mg PO HS [facility] Stop: 12/16/16 20:59 Last Admin: 10/17/16 20:32 Dose: 10 mg Ondansetron HCl (Zofran) 4 mg IV Q8H PRN PRN Reason: Nausea / Vomiting Stop: 12/16/16 00:48 Pantoprazole Sodium (Protonix) 40 mg PO BID [facility] Stop: 12/16/16 10:29 Last Admin: 10/18/16 08:49 Dose: 40 mg Sodium Phosphate (Fleet Enema) 135 ml [facility] PRN PRN PRN Reason: Constipation Stop: 12/16/16 00:45 Tamsulosin HCl (Flomax) 0.4 mg PO HS [facility] Stop: 12/16/16 20:59 Last Admin: 10/17/16 20:32 Dose: 0.4 mg General: demented, cachectic HEENT: PERRLA Lungs: congested, rales, ronchi Cardiovascular: RRR, Normal S1, Normal S2 Abdomen: soft non-tender, globular, distended Extremities: excoriation, contracture Neurological: disorganized, unable to follow command - Procedures Procedures: Procedures Procedure Code Date ASSISTANCE WITH RESPIRATORY VENTILATION, <24 HRS, CPAP [id number] 06/29/16 EXCISION OF DUODENUM, ENDO, DIAGN [id number] 07/18/16 EXCISION OF ESOPHAGUS, ENDO, DIAGN [id number] 07/18/16 EXCISION OF STOMACH, ENDO, DIAGN [id number] 07/18/16 POS AIRWAY PRESSURE CPAP [id number] 06/29/16 Internal Medicine Assmt/Plan - Assessment Assessment: pnm arf copd gerd leukocytosis bacteremeia mrsa nares - Plan Plan: cotn on iv abx on vanco and maxi\pime vent support will try to wean off icu protocol sudhakar rn Nutritional Asmnt/Malnutr-PDOC - Dietary Evaluation Malnutrition Findings (Please click <Entered> for more info): Nutritional Asmnt/Malnutrition Start: 10/18/16 09: 33 Text: Status: Complete Freq: Document 10/18/16 09:33 GSUN (Rec: 10/18/16 09:38 GSUN [email or web address]) Nutritional Asmnt/Malnutrition Patient General Information Nutritional Screening Consult Diagnosis Acute respiratory failure, PNA , mild PCM, leukocytosis Pertinent Medical Hx/Surgical Hx Coronary artery disease, COPD, GERD, dementia, 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 RD consult for Ruddy <12. Pt with hx of resp failure, intubated in ER and transfered to ICU. Nutren Pulmonary at 20ml/hr. Discussed increasing rate to 30ml/hr with Prosource BID with RN. 30ml/hr to provide 720ml total, 1080kcal, 49g protein. Current Diet Order/ Nutrition Support Nutren Pulmonary 20ml/hr, providing 480ml total, 720kcal , 33g protein Pertinent Medications Lipitor, Dulcolax, D5, Culturelle, MOM, Vancomycin, Zofran, Protonix, Fleet Enema Pertinent Labs 10/18: glucose 111H Nutritional Hx/Data Height 1.73 m Height (Calculated Centimeters) 172.7 Current Weight (lbs) 81.647 kg Weight (Calculated Kilograms) 81.6 Weight (Calculated Grams) 24694.6 Usual body Weight (lbs) 160 [place] Body Weight 154 Weight Status Overweight GI Symptoms Skin Integrity/Comment: Ruddy [place]. RN notes: buttock small stage 2 decubitus ulcer. Estimated Nutritional Goals Calories/Kcals/Kg IBW 154lb/70kg Kcals Calculated 1750-2100kcal (25-30kcal/kg) Protein g/kg: IBW Protein Calculated 84-140g (1.2-2g/kg) Fluid: ml 1750-2100ml (1ml/kcal) Nutritional Problem 1. Problem Problem Difficulty chewing/swallowing related to Etiology respiratory distress aeb Signs/Symptoms: intubated, og tube feeding Intervention/Recommendation Comments 1. Recommend increasing Nutren Pulmonary from 20ml/hr to 30ml/hrs, providing to meet 62 % of lower end of estimated kcal needs. RD to closely monitor, recommend to increase rate to meet at least 100% of estimated kcal needs once pt is medically stable on vent. 2. Recommend Prosource BID to meet 100% of estimated prot needs to prevent muscle wasting. Expected Outcomes/Goals Expected Outcomes/Goals Pt to meet at least 60% of estimated kcal and 100% of estimated prot needs with tolerance while newly intubated.
[2016-10-18] MEDS: Atorvastatin Calcium 10 MG TAB PO SCH (21:07)
[2016-10-19 05:42] LABS: % BASOPHILS 0.5 % (0.0-2.0); % EOSINOPHILS 0.6 % (0.0-5.0); % MONOCYTES 6.4 % (2.0-10.0); % NEUTROPHILS 86.5 % (40.0-80.0); HEMATOCRIT 31.3 % (39.0-49.0); HEMOGLOBIN 10.7 gm/dL (12.6-17.4); MEAN CELL VOLUME 87.3 fl (80-99); MEAN CORPUSCULAR HEMOGLOBIN 29.9 pg (27.0-31.0); MEAN CORPUSCULAR HGB CONC 34.2 pg (28.0-36.0); NEUTROPHILE ABSOLUTE 8.2 Th/cmm (1.8-8.0); PLATELET COUNT 248 Th/cmm (150-400); RED BLOOD COUNT 3.59 Mil/cmm (3.80-5.80); RED CELL DISTRIBUTION WIDTH 14.8 % (11.5-20.0); WHITE BLOOD COUNT 9.5 Th/cmm (4.8-10.8)
[2016-10-19 05:57] LABS: ANION GAP 6.3 (7.0-16.0); BUN - UREA NITROGEN 15 mg/dL (7-25); CALCIUM SERUM 8.1 mg/dL (8.6-10.3); CHLORIDE 104 mEq/L (98-107); CREATININE - SERUM 0.6 mg/dL (0.7-1.3); GLUCOSE 116 mg/dL (70-105); MAGNESIUM 1.9 mg/dL (1.9-2.7); POTASSIUM SERUM 3.3 mEq/L (3.5-5.1); SODIUM SERUM 133 mEq/L (136-145)
[2016-10-19] MEDS: Budesonide 0.5 Mg/2 mL Ud HHN SCH ×2 (06:58→19:26)
[2016-10-19] MEDS: Ipratropium Neb 0.5 mg/2.5 mL UD HHN SCH ×4 (06:58→19:26)
[2016-10-19] MEDS: Albuterol Nebulizer 2.5mg/3mL HHN SCH ×4 (06:58→19:26)
[2016-10-19] MEDS: Pantoprazole 40 mg/Packet PO SCH ×2 (09:27→16:45)
[2016-10-19] MEDS: Chlorhexidine Gluconate 0.12% 15mL Mouthwash MM SCH ×3 (09:27→21:19)
[2016-10-19] MEDS: Aspirin 81mg Chewable Tab PO SCH (09:28)
[2016-10-19] MEDS: Lactobacillus Rhamnosus 10 Billion CFU Capsule PO SCH (09:28)
[2016-10-19] MEDS: D5-0.45NS 1,000 ML IV SCH (09:29)
--- NOTE | 2016-10-19 10:07 | Diagnostic Imaging Report ---
History: Dyspnea Comparison:[10/18/2016] Findings:[No change in positioning of the endotracheal tube PICC line or nasogastric tube. Heart size remains enlarged.] Impression:[Compared to previous exam there is been improvement in left lower lobe infiltrate]
[2016-10-19] MEDS ORDERED: Potassium Chloride 20 mEq ER Tab PO ONE (14:16)
--- NOTE | 2016-10-19 14:18 | Internal Medicine Prog Note ---
Internal Medicine Subjective - Subjective Patient seen and examined:: with staff, chart reviewed, other (on vent) Patient is:: asleep, non-verbal, non-interactive Patient Complaints of:: congestion Per staff patient is:: no adverse event, noncompliant, confused Internal Medicine Objective - Results Result Diagrams: 10/19/16 05:00 10/19/16 05:00 Recent Labs: Laboratory Last Values WBC 9.5 Th/cmm (4.8-10.8) 10/19/16 05:00 RBC 3.59 Mil/cmm (3.80-5.80) L 10/19/16 05:00 Hgb 10.7 gm/dL (12.6-17.4) L 10/19/16 05:00 Hct 31.3 % (39.0-49.0) L 10/19/16 05:00 MCV 87.3 fl (80-99) 10/19/16 05:00 MCH 29.9 pg (27.0-31.0) 10/19/16 05:00 MCHC Differential 34.2 pg (28.0-36.0) 10/19/16 05:00 RDW 14.8 % (11.5-20.0) 10/19/16 05:00 Plt Count 248 Th/cmm (150-400) 10/19/16 05:00 MPV 8.0 fl 10/19/16 05:00 Neutrophils % 86.5 % (40.0-80.0) H 10/19/16 05:00 Band Neutrophils % 2 % (0-10) 10/18/16 07:07 Lymphocytes % 6.0 % (20.0-50.0) L 10/19/16 05:00 Monocytes % 6.4 % (2.0-10.0) 10/19/16 05:00 Eosinophils % 0.6 % (0.0-5.0) 10/19/16 05:00 Basophils % 0.5 % (0.0-2.0) 10/19/16 05:00 Neutrophils (Manual) 87 % (40-80) H 10/18/16 07:07 Lymphocytes 5 % (20-50) L 10/18/16 07:07 Monocytes 6 % (2-10) 10/18/16 07:07 Platelet Estimate ADEQUATE (NORMAL) 10/18/16 07:07 Platelet Morphology NORMAL (NORMAL) 10/18/16 07:07 RBC Morph Micro Appear NORMAL (NORMAL) 10/18/16 07:07 PT 11.5 SECONDS (9.5-11.5) 10/17/16 15:45 INR 1.10 (0.5-1.4) 10/17/16 15:45 PTT (Actin FS) 27.0 SECONDS (26.0-38.0) 10/17/16 15:45 Specimen Source Arterial 10/18/16 08:57 Sample Site Left Radial 10/18/16 08:57 pH 7.46 (7.35-7.45) H 10/18/16 08:57 pCO2 43.0 mmHg (35.0-45.0) 10/18/16 08:57 pO2 64.0 mmHg (80.0-100.0) L 10/18/16 08:57 HCO3 29.6 mEq/L (20.0-26.0) H 10/18/16 08:57 Base Excess 6.1 mEq/L (-3.0-3.0) H 10/18/16 08:57 O2 Saturation 93.0 % (92.0-100.0) 10/18/16 08:57 Praveen Test YES 10/18/16 08:57 Vent Rate 14 10/18/16 08:57 Inspired O2 30 10/18/16 08:57 Tidal Volume 500 10/18/16 08:57 PEEP 5 10/18/16 08:57 Pressure (ins/psv/peep) NA 10/18/16 08:57 Critical Value JACKY 10/18/16 08:57 Sodium 133 mEq/L (136-145) L 10/19/16 05:00 Potassium 3.3 mEq/L (3.5-5.1) L 10/19/16 05:00 Chloride 104 mEq/L (98-107) 10/19/16 05:00 Carbon Dioxide 26.0 mEq/L (21.0-31.0) 10/19/16 05:00 Anion Gap 6.3 (7.0-16.0) L 10/19/16 05:00 BUN 15 mg/dL (7-25) 10/19/16 05:00 Creatinine 0.6 mg/dL (0.7-1.3) L 10/19/16 05:00 Est GFR ( Amer) TNP 10/19/16 05:00 Est GFR (Non-Af Amer) TNP 10/19/16 05:00 BUN/Creatinine Ratio 25.0 10/19/16 05:00 Glucose 116 mg/dL (70-105) H 10/19/16 05:00 Whole Bld Lactic Acid 1.17 mmol/L (0.60-1.99) 10/17/16 06:10 Calcium 8.1 mg/dL (8.6-10.3) L 10/19/16 05:00 Phosphorus 2.5 mg/dL (2.5-5.0) 10/18/16 07:07 Magnesium 1.9 mg/dL (1.9-2.7) 10/19/16 05:00 Total Bilirubin 0.6 mg/dL (0.3-1.0) 10/17/16 06:10 AST 12 U/L (13-39) L 10/17/16 06:10 ALT 11 U/L (7-52) 10/17/16 06:10 Alkaline Phosphatase 77 U/L (34-104) 10/17/16 06:10 Ammonia 36 umol/L (16-53) 10/19/16 05:00 Troponin I 0.02 ng/mL (0.01-0.05) 10/16/16 23:29 B-Natriuretic Peptide 38.5 pg/mL (5.0-100.0) 10/18/16 07:07 Total Protein 6.2 gm/dL (6.0-8.3) 10/17/16 06:10 Albumin 3.3 gm/dL (4.2-5.5) L 10/17/16 06:10 Globulin 2.9 gm/dL 10/17/16 06:10 Albumin/Globulin Ratio 1.1 (1.0-1.8) 10/17/16 06:10 Vitamin B12 476 pg/mL (211-946) 10/17/16 06:10 Folic Acid >20.0 ng/mL (>3.0) 10/17/16 06:10 TSH 0.47 uIU/ml (0.34-5.60) 10/17/16 06:10 Urine Source [place] 10/17/16 13:35 Urine Color YELLOW 10/17/16 13:35 Urine Clarity SLIGHT HAZY (CLEAR) 10/17/16 13:35 Urine pH 5.0 10/17/16 13:35 Ur Specific [place] 1.025 (1.005-1.030) 10/17/16 13:35 Urine Protein 30 mg/dL (NEGATIVE) H 10/17/16 13:35 Urine Glucose (UA) NEGATIVE mg/dL (NEGATIVE) 10/17/16 13:35 Urine Ketones NEGATIVE mg/dL (NEGATIVE) 10/17/16 13:35 Urine Blood NEGATIVE (NEGATIVE) 10/17/16 13:35 Urine Nitrate NEGATIVE (NEGATIVE) 10/17/16 13:35 Urine Bilirubin NEGATIVE (NEGATIVE) 10/17/16 13:35 Urine Urobilinogen 0.2 E.U./dL (0.2 - 1.0) 10/17/16 13:35 Ur Leukocyte Esterase NEGATIVE (NEGATIVE) 10/17/16 13:35 Urine RBC 0-1 /hpf (0-5) 10/17/16 13:35 Urine WBC 0-2 /hpf (0-5) 10/17/16 13:35 Ur Epithelial Cells OCCASIONAL /lpf (FEW) 10/17/16 13:35 Amorphous Sediment MODERATE URATES (NONE SEEN) 10/17/16 13:35 Urine Bacteria 1+ /hpf (NONE SEEN) H 10/17/16 13:35 Vancomycin Trough 15.0 ug/mL (10-20) 10/18/16 09:30 Carbamazepine < 2.0 ug/ml (4.0-12.0) L 10/16/16 23:29 - Physical Exam Vitals and I&O: Vital Signs Temp 98.4 F 10/19/16 12:00 Pulse 71 10/19/16 13:06 Resp 14 10/19/16 12:00 BP 99/51 10/19/16 12:00 Pulse Ox 98 10/19/16 13:06 Intake & Output 10/18/16 10/19/16 10/19/16 18:59 06:59 18:59 Intake Total 5609 097 6559.167 Output Total 200 575 Balance 4272 769 0158.167 Intake: Intake, IV Amount 4700 071 4713.167 Cefepime 1 gm In Dextrose 50 50 5% 50 ml @ 100 mls/hr IV Q12H [facility] [place] Rx#:[id number] D5-0.45NS 1,000 ml @ 50 989.167 mls/hr IV .Q20H [facility] Rx#: [id number] D5-0.45NS 1,000 ml @ 70 1000 mls/hr IV .[id number] [facility] [place] Rx #:[id number] Vancomycin HCl 1.25 gm In 250 250 250 Sodium Chloride 0.9% 250 ml @ 165 mls/hr IV Q12H [facility] [place] Rx#:[id number] Oral 0 Tube Feeding 290 360 Other 120 140 Output: Urine 200 575 Urine/Stool Mix 0 Other: # Voids 1 # Bowel Movements 0 Active Medications: Current Medications Acetaminophen (Tylenol) 650 mg PO Q4HR PRN PRN Reason: Pain or Fever >101 Stop: 12/16/16 00:48 Last Admin: 10/19/16 05:52 Dose: 650 mg Albuterol Sulfate (Albuterol 2.5mg/3ml Neb Ud) 2.5 mg HHN QIDRT [facility] [place] Stop: 12/16/16 06:59 Last Admin: 10/19/16 11:11 Dose: 2.5 mg Amiodarone HCl (Cordarone) 200 mg PO DAILY [facility] [place] Stop: 12/16/16 08:59 Last Admin: 10/19/16 09:28 Dose: 200 mg Aspirin (Aspirin Chewable) 81 mg PO DAILY [facility] [place] Stop: 12/16/16 08:59 Last Admin: 10/19/16 09:28 Dose: 81 mg Atorvastatin Calcium (Lipitor) 10 mg PO [facility] PRN Reason: Protocol Stop: 12/16/16 20:59 Last Admin: 10/18/16 21:07 Dose: 10 mg Bisacodyl (Dulcolax 10 Mg Supp) 10 mg RC Q72H PRN PRN Reason: Constipation Stop: 12/16/16 00:45 Budesonide (Pulmicort) 0.5 mg HHN BIDRT [facility] Stop: 12/16/16 18:59 Last Admin: 10/19/16 06:58 Dose: 0.5 mg Chlorhexidine Gluconate (Peridex) 15 ml MM 0800,2000 [facility] Stop: 12/17/16 07:59 Last Admin: 10/19/16 10:05 Dose: 15 ml Donepezil HCl (Aricept) 10 mg PO [facility] Stop: 12/16/16 20:59 Last Admin: 10/17/16 20:32 Dose: 10 mg Guaifenesin (Robitussin) 200 mg PO Q4HR PRN PRN Reason: Cough or Congestion Stop: 12/16/16 00:48 Heparin Sodium (Porcine) (Heparin) 5,000 units SUBQ Q12HR [facility] Stop: 12/16/16 08:59 Last Admin: 10/19/16 09:31 Dose: 5,000 units Cefepime HCl 1 gm/ Dextrose 50 mls @ 100 mls/hr IV Q12H [facility] Stop: 12/16/16 00:59 Last Admin: 10/19/16 13:01 Dose: 100 mls/hr Vancomycin HCl 1.25 gm/ Sodium (Chloride) 250 mls @ 165 mls/hr IV Q12H [facility] Stop: 12/16/16 09:59 Last Infusion: 10/19/16 12:57 Dose: Infused Dextrose/Sodium Chloride (D5-0.45ns) 1,000 mls @ 50 mls/hr IV .Q20H [facility] Stop: 12/17/16 13:27 Last Admin: 10/19/16 09:29 Dose: 50 mls/hr Ipratropium [place] (Atrovent Neb 0.5mg/2.5ml) 0.5 mg HHN QIDRT [facility] Stop: 12/16/16 06:59 Last Admin: 10/19/16 11:11 Dose: 0.5 mg Lactobacillus Rhamnosus (Culturelle) 1 each PO DAILY [facility] Stop: 12/17/16 08:59 Last Admin: 10/19/16 09:28 Dose: 1 each Lorazepam (Ativan) 1 mg IV Q4HR PRN; Protocol PRN Reason: Seizure Stop: 12/16/16 00:48 Last Admin: 10/18/16 02:25 Dose: 1 mg Magnesium Hydroxide (Milk Of Magnesia) 30 ml PO HS PRN PRN Reason: Constipation Stop: 12/16/16 00:45 Miscellaneous (Vancomycin Iv Per Pharmacy) 1 [facility]a [facility] PRN [facility] Stop: 12/16/16 00:59 Miscellaneous (Probiotic Screen) 1 [facility] PRN PRN PRN Reason: PROTOCOL Stop: 12/16/16 16:45 Montelukast Sodium (Singulair) 10 mg PO HS [facility] Stop: 12/16/16 20:59 Last Admin: 10/18/16 21:07 Dose: 10 mg Mupirocin (Bactroban Oint) 1 appl NS BID [facility] Stop: 10/23/16 16:59 Last Admin: 10/19/16 09:28 Dose: 1 appl Ondansetron HCl (Zofran) 4 mg IV Q8H PRN PRN Reason: Nausea / Vomiting Stop: 12/16/16 00:48 Pantoprazole Sodium (Protonix) 40 mg PO BID [facility] Stop: 12/16/16 10:29 Last Admin: 10/19/16 09:27 Dose: 40 mg Potassium Chloride (Klor-Con) 20 meq PO X1 [facility] Stop: 10/19/16 14:17 Sodium Phosphate (Fleet Enema) 135 ml RC PRN PRN PRN Reason: Constipation Stop: 12/16/16 00:45 Tamsulosin HCl (Flomax) 0.4 mg PO HS LORNA Stop: 12/16/16 20:59 Last Admin: 10/18/16 21:07 Dose: 0.4 mg General: demented HEENT: NC/AT, PERRLA Neck: Supple, + trach Lungs: congested, rales, ronchi Cardiovascular: RRR, Normal S1, Normal S2 Abdomen: soft non-tender, globular Extremities: excoriation, contracture Neurological: no change, unable to follow command - Procedures Procedures: Procedures Procedure Code Date ASSISTANCE WITH RESPIRATORY VENTILATION, <24 HRS, CPAP [id number] 06/29/16 EXCISION OF DUODENUM, ENDO, DIAGN [id number] 07/18/16 EXCISION OF ESOPHAGUS, ENDO, DIAGN [id number] 07/18/16 EXCISION OF STOMACH, ENDO, DIAGN [id number] 07/18/16 INSERT EMERGENCY AIRWAY 17247 10/17/16 INSERTION OF ENDOTRACHEAL AIRWAY INTO TRACHEA, VIA OPENING [id number] 10/17/16 POS AIRWAY PRESSURE CPAP [id number] 06/29/16 RESPIRATORY VENTILATION, 24-96 CONSECUTIVE HOURS [id number] 10/17/16 VENT MGMT INPAT INIT DAY 95802 10/17/16 VENT MGMT INPAT SUBQ DAY 12720 10/17/16 Internal Medicine Assmt/Plan - Assessment Assessment: pnm arf copd gerd leukocytosis bacteremeia mrsa nares - Plan Plan: cotn on iv abx on vanco and maxi\pime vent support will try to wean off icu protocol sudhakar rn Nutritional Asmnt/Malnutr-PDOC - Dietary Evaluation Malnutrition Findings (Please click <Entered> for more info): Nutritional Asmnt/Malnutrition Start: 10/18/16 09: 33 Text: Status: Complete Freq: Document 10/18/16 09:33 KAILEE (Rec: 10/18/16 09:38 GSEFRAÍN [id number]) Nutritional Asmnt/Malnutrition Patient General Information Nutritional Screening Consult Diagnosis Acute respiratory failure, PNA , mild PCM, leukocytosis Pertinent Medical Hx/Surgical Hx Coronary artery disease, COPD, GERD, dementia, 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 RD consult for Ruddy <12. Pt with hx of resp failure, intubated in ER and transfered to ICU. Nutren Pulmonary at 20ml/hr. Discussed increasing rate to 30ml/hr with Prosource BID with RN. 30ml/hr to provide 720ml total, 1080kcal, 49g protein. Current Diet Order/ Nutrition Support Nutren Pulmonary 20ml/hr, providing 480ml total, 720kcal , 33g protein Pertinent Medications Lipitor, Dulcolax, D5, Culturelle, MOM, Vancomycin, Zofran, Protonix, Fleet Enema Pertinent Labs 10/18: glucose 111H Nutritional Hx/Data Height 1.73 m Height (Calculated Centimeters) 172.7 Current Weight (lbs) 81.647 kg Weight (Calculated Kilograms) 81.6 Weight (Calculated Grams) 23471.6 Usual body Weight (lbs) 160 [place] Body Weight 154 Weight Status Overweight GI Symptoms Skin Integrity/Comment: Ruddy 12. RN notes: buttock small stage 2 decubitus ulcer. Estimated Nutritional Goals Calories/Kcals/Kg IBW 154lb/70kg Kcals Calculated 1750-2100kcal (25-30kcal/kg) Protein g/kg: IBW Protein Calculated 84-140g (1.2-2g/kg) Fluid: ml 1750-2100ml (1ml/kcal) Nutritional Problem 1. Problem Problem Difficulty chewing/swallowing related to Etiology respiratory distress aeb Signs/Symptoms: intubated, og tube feeding Intervention/Recommendation Comments 1. Recommend increasing Nutren Pulmonary from 20ml/hr to 30ml/hrs, providing to meet 62 % of lower end of estimated kcal needs. RD to closely monitor, recommend to increase rate to meet at least 100% of estimated kcal needs once pt is medically stable on vent. 2. Recommend Prosource BID to meet 100% of estimated prot needs to prevent muscle wasting. Expected Outcomes/Goals Expected Outcomes/Goals Pt to meet at least 60% of estimated kcal and 100% of estimated prot needs with tolerance while newly intubated.
[2016-10-19] MEDS: Atorvastatin Calcium 10 MG TAB PO SCH (21:08)
[2016-10-20] MEDS: Albuterol Nebulizer 2.5mg/3mL HHN SCH ×4 (08:42→18:41)
[2016-10-20] MEDS: Ipratropium Neb 0.5 mg/2.5 mL UD HHN SCH ×4 (08:43→18:41)
[2016-10-20] MEDS: Budesonide 0.5 Mg/2 mL Ud HHN SCH ×2 (08:43→18:41)
[2016-10-20] MEDS: Aspirin 81mg Chewable Tab PO SCH (08:56)
[2016-10-20] MEDS: Lactobacillus Rhamnosus 10 Billion CFU Capsule PO SCH (08:56)
[2016-10-20] MEDS: Pantoprazole 40 mg/Packet PO SCH ×2 (08:56→18:01)
[2016-10-20] MEDS: Chlorhexidine Gluconate 0.12% 15mL Mouthwash MM SCH ×2 (08:59→21:56)
[2016-10-20] MEDS: D5-0.45NS 1,000 ML IV SCH (09:00)
--- NOTE | 2016-10-20 09:02 | Diagnostic Imaging Report ---
History: Dyspnea Comparison:[10/19/2016] Findings:[No change in positioning of the endotracheal tube or nasogastric tube or PICC line catheter.. Surgical clips in the aorticopulmonary window. There are some consolidation or effusion in the left lung base.] Impression:[Compared to previous study there is some increased consolidation and effusion in the left lung base.]
[2016-10-20] MEDS: Atorvastatin Calcium 10 MG TAB PO SCH (21:42)
--- NOTE | 2016-10-20 21:58 | Internal Medicine Prog Note ---
Internal Medicine Subjective - Subjective Patient seen and examined:: with staff, chart reviewed Patient is:: asleep, non-verbal, non-interactive Patient Complaints of:: congestion, other (ett) Per staff patient is:: no adverse event, agitated Internal Medicine Objective - Results Result Diagrams: 10/19/16 05:00 10/19/16 05:00 Recent Labs: Laboratory Last Values WBC 9.5 Th/cmm (4.8-10.8) 10/19/16 05:00 RBC 3.59 Mil/cmm (3.80-5.80) L 10/19/16 05:00 Hgb 10.7 gm/dL (12.6-17.4) L 10/19/16 05:00 Hct 31.3 % (39.0-49.0) L 10/19/16 05:00 MCV 87.3 fl (80-99) 10/19/16 05:00 MCH 29.9 pg (27.0-31.0) 10/19/16 05:00 MCHC Differential 34.2 pg (28.0-36.0) 10/19/16 05:00 RDW 14.8 % (11.5-20.0) 10/19/16 05:00 Plt Count 248 Th/cmm (150-400) 10/19/16 05:00 MPV 8.0 fl 10/19/16 05:00 Neutrophils % 86.5 % (40.0-80.0) H 10/19/16 05:00 Band Neutrophils % 2 % (0-10) 10/18/16 07:07 Lymphocytes % 6.0 % (20.0-50.0) L 10/19/16 05:00 Monocytes % 6.4 % (2.0-10.0) 10/19/16 05:00 Eosinophils % 0.6 % (0.0-5.0) 10/19/16 05:00 Basophils % 0.5 % (0.0-2.0) 10/19/16 05:00 Neutrophils (Manual) 87 % (40-80) H 10/18/16 07:07 Lymphocytes 5 % (20-50) L 10/18/16 07:07 Monocytes 6 % (2-10) 10/18/16 07:07 Platelet Estimate ADEQUATE (NORMAL) 10/18/16 07:07 Platelet Morphology NORMAL (NORMAL) 10/18/16 07:07 RBC Morph Micro Appear NORMAL (NORMAL) 10/18/16 07:07 PT 11.5 SECONDS (9.5-11.5) 10/17/16 15:45 INR 1.10 (0.5-1.4) 10/17/16 15:45 PTT (Actin FS) 27.0 SECONDS (26.0-38.0) 10/17/16 15:45 Specimen Source Arterial 10/18/16 08:57 Sample Site Left Radial 10/18/16 08:57 pH 7.46 (7.35-7.45) H 10/18/16 08:57 pCO2 43.0 mmHg (35.0-45.0) 10/18/16 08:57 pO2 64.0 mmHg (80.0-100.0) L 10/18/16 08:57 HCO3 29.6 mEq/L (20.0-26.0) H 10/18/16 08:57 Base Excess 6.1 mEq/L (-3.0-3.0) H 10/18/16 08:57 O2 Saturation 93.0 % (92.0-100.0) 10/18/16 08:57 Praveen Test YES 10/18/16 08:57 Vent Rate 14 10/18/16 08:57 Inspired O2 30 10/18/16 08:57 Tidal Volume 500 10/18/16 08:57 PEEP 5 10/18/16 08:57 Pressure (ins/psv/peep) NA 10/18/16 08:57 Critical Value JACKY 10/18/16 08:57 Sodium 133 mEq/L (136-145) L 10/19/16 05:00 Potassium 3.3 mEq/L (3.5-5.1) L 10/19/16 05:00 Chloride 104 mEq/L (98-107) 10/19/16 05:00 Carbon Dioxide 26.0 mEq/L (21.0-31.0) 10/19/16 05:00 Anion Gap 6.3 (7.0-16.0) L 10/19/16 05:00 BUN 15 mg/dL (7-25) 10/19/16 05:00 Creatinine 0.6 mg/dL (0.7-1.3) L 10/19/16 05:00 Est GFR ( Amer) TNP 10/19/16 05:00 Est GFR (Non-Af Amer) TNP 10/19/16 05:00 BUN/Creatinine Ratio 25.0 10/19/16 05:00 Glucose 116 mg/dL (70-105) H 10/19/16 05:00 POC Glucose 96 MG/DL (70 - 105) 10/19/16 21:03 Whole Bld Lactic Acid 1.17 mmol/L (0.60-1.99) 10/17/16 06:10 Calcium 8.1 mg/dL (8.6-10.3) L 10/19/16 05:00 Phosphorus 2.5 mg/dL (2.5-5.0) 10/18/16 07:07 Magnesium 1.9 mg/dL (1.9-2.7) 10/19/16 05:00 Total Bilirubin 0.6 mg/dL (0.3-1.0) 10/17/16 06:10 AST 12 U/L (13-39) L 10/17/16 06:10 ALT 11 U/L (7-52) 10/17/16 06:10 Alkaline Phosphatase 77 U/L (34-104) 10/17/16 06:10 Ammonia 36 umol/L (16-53) 10/19/16 05:00 Troponin I 0.02 ng/mL (0.01-0.05) 10/16/16 23:29 B-Natriuretic Peptide 38.5 pg/mL (5.0-100.0) 10/18/16 07:07 Total Protein 6.2 gm/dL (6.0-8.3) 10/17/16 06:10 Albumin 3.3 gm/dL (4.2-5.5) L 10/17/16 06:10 Globulin 2.9 gm/dL 10/17/16 06:10 Albumin/Globulin Ratio 1.1 (1.0-1.8) 10/17/16 06:10 Vitamin B12 476 pg/mL (211-946) 10/17/16 06:10 Folic Acid >20.0 ng/mL (>3.0) 10/17/16 06:10 TSH 0.47 uIU/ml (0.34-5.60) 10/17/16 06:10 Urine Source [place] 10/17/16 13:35 Urine Color YELLOW 10/17/16 13:35 Urine Clarity SLIGHT HAZY (CLEAR) 10/17/16 13:35 Urine pH 5.0 10/17/16 13:35 Ur Specific [place] 1.025 (1.005-1.030) 10/17/16 13:35 Urine Protein 30 mg/dL (NEGATIVE) H 10/17/16 13:35 Urine Glucose (UA) NEGATIVE mg/dL (NEGATIVE) 10/17/16 13:35 Urine Ketones NEGATIVE mg/dL (NEGATIVE) 10/17/16 13:35 Urine Blood NEGATIVE (NEGATIVE) 10/17/16 13:35 Urine Nitrate NEGATIVE (NEGATIVE) 10/17/16 13:35 Urine Bilirubin NEGATIVE (NEGATIVE) 10/17/16 13:35 Urine Urobilinogen 0.2 E.U./dL (0.2 - 1.0) 10/17/16 13:35 Ur Leukocyte Esterase NEGATIVE (NEGATIVE) 10/17/16 13:35 Urine RBC 0-1 /hpf (0-5) 10/17/16 13:35 Urine WBC 0-2 /hpf (0-5) 10/17/16 13:35 Ur Epithelial Cells OCCASIONAL /lpf (FEW) 10/17/16 13:35 Amorphous Sediment MODERATE URATES (NONE SEEN) 10/17/16 13:35 Urine Bacteria 1+ /hpf (NONE SEEN) H 10/17/16 13:35 Vancomycin Trough 16.7 ug/mL (10-20) 10/20/16 09:32 Carbamazepine < 2.0 ug/ml (4.0-12.0) L 10/16/16 23:29 - Physical Exam Vitals and I&O: Vital Signs Temp 98.5 F 10/20/16 16:00 Pulse 85 10/20/16 18:42 Resp 16 10/20/16 18:00 BP 137/64 10/20/16 18:00 Pulse Ox 99 10/20/16 18:42 Intake & Output 10/20/16 10/20/16 10/21/16 06:59 18:59 06:59 Intake Total 2210 700 Output Total 2060 800 Balance 150 -100 Intake: Intake, IV Amount 1550 300 Cefepime 1 gm In Dextrose 50 50 5% 50 ml @ 100 mls/hr IV Q12H [facility] Rx#:[id number] D5-0.45NS 1,000 ml @ 50 1000 mls/hr IV .Q20H [facility] Rx#: [id number] Vancomycin HCl 1.25 gm In 250 250 Sodium Chloride 0.9% 250 ml @ 165 mls/hr IV Q12H [facility] Rx#:[id number] Tube Feeding 30 400 Other 630 Output: Urine 2060 800 Other: # Bowel Movements 1 Active Medications: Current Medications Acetaminophen (Tylenol) 650 mg PO Q4HR PRN PRN Reason: Pain or Fever >101 Stop: 12/16/16 00:48 Last Admin: 10/19/16 05:52 Dose: 650 mg Albuterol Sulfate (Albuterol 2.5mg/3ml Neb Ud) 2.5 mg HHN QIDRT [facility] Stop: 12/16/16 06:59 Last Admin: 10/20/16 18:41 Dose: 2.5 mg Amiodarone HCl (Cordarone) 200 mg PO DAILY [facility] Stop: 12/16/16 08:59 Last Admin: 10/20/16 08:56 Dose: 200 mg Aspirin (Aspirin Chewable) 81 mg PO DAILY [facility] Stop: 12/16/16 08:59 Last Admin: 10/20/16 08:56 Dose: 81 mg Atorvastatin Calcium (Lipitor) 10 mg PO HS [facility] PRN Reason: Protocol Stop: 12/16/16 20:59 Last Admin: 10/19/16 21:08 Dose: 10 mg Bisacodyl (Dulcolax 10 Mg Supp) 10 mg RC Q72H PRN PRN Reason: Constipation Stop: 12/16/16 00:45 Budesonide (Pulmicort) 0.5 mg HHN BIDRT [facility] Stop: 12/16/16 18:59 Last Admin: 10/20/16 18:41 Dose: 0.5 mg Chlorhexidine Gluconate (Peridex) 15 ml MM 0800,1999 [facility] Stop: 12/17/16 07:59 Last Admin: 10/20/16 08:59 Dose: 15 ml Donepezil HCl (Aricept) 10 mg PO HS [facility] Stop: 12/16/16 20:59 Last Admin: 10/19/16 21:08 Dose: 10 mg Guaifenesin (Robitussin) 200 mg PO Q4HR PRN PRN Reason: Cough or Congestion Stop: 12/16/16 00:48 Heparin Sodium (Porcine) (Heparin) 5,000 units SUBQ Q12HR [facility] Stop: 12/16/16 08:59 Last Admin: 10/20/16 08:56 Dose: 5,000 units Cefepime HCl 1 gm/ Dextrose 50 mls @ 100 mls/hr IV Q12H [facility] Stop: 12/16/16 00:59 Last Infusion: 10/20/16 16:29 Dose: Infused Vancomycin HCl 1.25 gm/ Sodium (Chloride) 250 mls @ 165 mls/hr IV Q12H [facility] Stop: 12/16/16 09:59 Last Infusion: 10/20/16 16:29 Dose: Infused Dextrose/Sodium Chloride (D5-0.45ns) 1,000 mls @ 50 mls/hr IV .Q20H [facility] Stop: 12/17/16 13:27 Last Admin: 10/20/16 09:00 Dose: 50 mls/hr Ipratropium [place] (Atrovent Neb 0.5mg/2.5ml) 0.5 mg HHN QIDRT [facility] Stop: 12/16/16 06:59 Last Admin: 10/20/16 18:41 Dose: 0.5 mg Lactobacillus Rhamnosus (Culturelle) 1 each PO DAILY [facility] Stop: 12/17/16 08:59 Last Admin: 10/20/16 08:56 Dose: 1 each Lorazepam (Ativan) 1 mg IV Q4HR PRN; Protocol PRN Reason: Seizure Stop: 12/16/16 00:48 Last Admin: 10/18/16 02:25 Dose: 1 mg Magnesium Hydroxide (Milk Of Magnesia) 30 ml PO HS PRN PRN Reason: Constipation Stop: 12/16/16 00:45 Miscellaneous (Vancomycin Iv Per Pharmacy) 1 ea MC PRN [facility] Stop: 12/16/16 00:59 Miscellaneous (Probiotic Screen) 1 ea MC PRN PRN PRN Reason: PROTOCOL Stop: 12/16/16 16:45 Montelukast Sodium (Singulair) 10 mg PO HS [facility] Stop: 12/16/16 20:59 Last Admin: 10/19/16 21:09 Dose: 10 mg Mupirocin (Bactroban Oint) 1 appl NS BID [facility] Stop: 10/23/16 16:59 Last Admin: 10/20/16 18:00 Dose: 1 appl Ondansetron HCl (Zofran) 4 mg IV Q8H PRN PRN Reason: Nausea / Vomiting Stop: 12/16/16 00:48 Pantoprazole Sodium (Protonix) 40 mg PO BID [facility] Stop: 12/16/16 10:29 Last Admin: 10/20/16 18:01 Dose: 40 mg Sodium Phosphate (Fleet Enema) 135 ml RC PRN PRN PRN Reason: Constipation Stop: 12/16/16 00:45 Tamsulosin HCl (Flomax) 0.4 mg PO HS [facility] Stop: 12/16/16 20:59 Last Admin: 10/19/16 21:09 Dose: 0.4 mg General: lethargic, demented HEENT: NC/AT, PERRLA Neck: Supple Lungs: congested, rales Cardiovascular: RRR, Normal S1, Normal S2 Abdomen: soft non-tender, globular, positive bowel sound Extremities: excoriation, contracture Neurological: no change, lethargic, disorganized - Procedures Procedures: Procedures Procedure Code Date ASSISTANCE WITH RESPIRATORY VENTILATION, <24 HRS, CPAP 9I93009 06/29/16 EXCISION OF DUODENUM, ENDO, DIAGN [id number] 07/18/16 EXCISION OF ESOPHAGUS, ENDO, DIAGN [id number] 07/18/16 EXCISION OF STOMACH, ENDO, DIAGN [id number] 07/18/16 INSERT EMERGENCY AIRWAY [id number] 10/17/16 INSERTION OF ENDOTRACHEAL AIRWAY INTO TRACHEA, VIA OPENING [id number] 10/17/16 POS AIRWAY PRESSURE CPAP [id number] 06/29/16 RESPIRATORY VENTILATION, 24-96 CONSECUTIVE HOURS [id number] 10/17/16 VENT MGMT INPAT INIT DAY 59674 10/17/16 VENT MGMT INPAT SUBQ DAY 08164 10/17/16 Internal Medicine Assmt/Plan - Assessment Assessment: pnm arf copd gerd leukocytosis bacteremeia mrsa nares - Plan Plan: cotn on iv abx on vanco and maxi\pime vent support will try to wean off icu protocol sudhakar ma Nutritional Asmnt/Malnutr-PDOC - Dietary Evaluation Malnutrition Findings (Please click <Entered> for more info): Nutritional Asmnt/Malnutrition Start: 10/18/16 09: 33 Text: Status: Complete Freq: Document 10/18/16 09:33 GSUN (Rec: 10/18/16 09:38 GSUN [email or web address]) Nutritional Asmnt/Malnutrition Patient General Information Nutritional Screening Consult Diagnosis Acute respiratory failure, PNA , mild PCM, leukocytosis Pertinent Medical Hx/Surgical Hx Coronary artery disease, COPD, GERD, dementia, 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 RD consult for Ruddy <12. Pt with hx of resp failure, intubated in ER and transfered to ICU. Nutren Pulmonary at 20ml/hr. Discussed increasing rate to 30ml/hr with Prosource BID with RN. 30ml/hr to provide 720ml total, 1080kcal, 49g protein. Current Diet Order/ Nutrition Support Nutren Pulmonary 20ml/hr, providing 480ml total, 720kcal , 33g protein Pertinent Medications Lipitor, Dulcolax, D5, Culturelle, MOM, Vancomycin, Zofran, Protonix, Fleet Enema Pertinent Labs 10/18: glucose 111H Nutritional Hx/Data Height 1.73 m Height (Calculated Centimeters) 172.7 Current Weight (lbs) 81.647 kg Weight (Calculated Kilograms) 81.6 Weight (Calculated Grams) 48356.6 Usual body Weight (lbs) 160 [place] Body Weight 154 Weight Status Overweight GI Symptoms Skin Integrity/Comment: Ruddy 12. RN notes: buttock small stage 2 decubitus ulcer. Estimated Nutritional Goals Calories/Kcals/Kg IBW 154lb/70kg Kcals Calculated 1750-2100kcal (25-30kcal/kg) Protein g/kg: IBW Protein Calculated 84-140g (1.2-2g/kg) Fluid: ml 1750-2100ml (1ml/kcal) Nutritional Problem 1. Problem Problem Difficulty chewing/swallowing related to Etiology respiratory distress aeb Signs/Symptoms: intubated, og tube feeding Intervention/Recommendation Comments 1. Recommend increasing Nutren Pulmonary from 20ml/hr to 30ml/hrs, providing to meet 62 % of lower end of estimated kcal needs. RD to closely monitor, recommend to increase rate to meet at least 100% of estimated kcal needs once pt is medically stable on vent. 2. Recommend Prosource BID to meet 100% of estimated prot needs to prevent muscle wasting. Expected Outcomes/Goals Expected Outcomes/Goals Pt to meet at least 60% of estimated kcal and 100% of estimated prot needs with tolerance while newly intubated.
--- NOTE | 2016-10-21 07:05 | Progress Notes ---
DATE: 10/20/2016 PROBLEM LIST: 1. Acute respiratory failure. 2. Pneumonia. 3. Ventilator. SYMPTOMS: Nil. Opens eyes, periodically restless. No respiratory distress, etc. PHYSICAL EXAMINATION: VITAL SIGNS: Temperature is 96, respirations is in 15, heart rate is in 70s, temperature is 96, blood pressure is 142/70 and saturation is 90% on 40% of oxygen. NECK: ____. CHEST: Shows diminished air entry with occasional rhonchi. HEART: Regular. ABDOMEN: Soft and nontender. EXTREMITIES: Shows no peripheral edema. The patient has no labs today. ASSESSMENT: The patient is clinically tolerating, weaning okay. PLANS AND SUGGESTIONS: We will try to get backup rate, decrease backup rate, decrease FIO2 and follow up chest x-ray, etc. and see how it is and go from there. JOB# [id number]
[2016-10-21] MEDS: Albuterol Nebulizer 2.5mg/3mL HHN SCH ×4 (07:27→18:52)
[2016-10-21] MEDS: Budesonide 0.5 Mg/2 mL Ud HHN SCH ×2 (07:27→18:52)
[2016-10-21] MEDS: Ipratropium Neb 0.5 mg/2.5 mL UD HHN SCH ×4 (07:27→18:52)
[2016-10-21 08:05] LABS: % BASOPHILS 0.1 % (0.0-2.0); % EOSINOPHILS 2.2 % (0.0-5.0); % LYMPHOCYTES 10.6 % (20.0-50.0); % NEUTROPHILS 81.1 % (40.0-80.0); HEMATOCRIT 30.3 % (39.0-49.0); HEMOGLOBIN 10.3 gm/dL (12.6-17.4); MEAN CELL VOLUME 86.8 fl (80-99); MEAN CORPUSCULAR HEMOGLOBIN 29.6 pg (27.0-31.0); MEAN CORPUSCULAR HGB CONC 34.1 pg (28.0-36.0); MEAN PLATELET VOLUME 8.1 fl; PLATELET COUNT 269 Th/cmm (150-400); RED BLOOD COUNT 3.49 Mil/cmm (3.80-5.80); RED CELL DISTRIBUTION WIDTH 14.4 % (11.5-20.0)
[2016-10-21 08:12] LABS: WHITE BLOOD COUNT 7.4 Th/cmm (4.8-10.8)
[2016-10-21] MEDS: Chlorhexidine Gluconate 0.12% 15mL Mouthwash MM SCH ×2 (08:18→20:00)
[2016-10-21 08:22] LABS: ALB/GLOB RATIO 1.1 (1.0-1.8); ALKALINE PHOSPHATASE 51 U/L (34-104); BILIRUBIN,TOTAL 0.2 mg/dL (0.3-1.0); BUN - UREA NITROGEN 8 mg/dL (7-25); CALCIUM SERUM 8.2 mg/dL (8.6-10.3); CARBON DIOXIDE 27.8 mEq/L (21.0-31.0); CHLORIDE 110 mEq/L (98-107); CREATININE - SERUM 0.4 mg/dL (0.7-1.3); GLUCOSE 101 mg/dL (70-105); SGOT 12 U/L (13-39); SGPT/ALT 10 U/L (7-52); SODIUM SERUM 137 mEq/L (136-145)
[2016-10-21 08:29] LABS: POTASSIUM SERUM 2.8 mEq/L (3.5-5.1)
[2016-10-21 08:32] LABS: pH 7.45 (7.35-7.45)
[2016-10-21 08:33] LABS: ABG SOURCE Arterial; ALLEN TEST Positive; BE(B) 4.7 mEq/L (-3.0-3.0); FIO2 35; HCO3 28.6 mEq/L (20.0-26.0); MECH RATE 6; MECH VT 500; PS 10
--- NOTE | 2016-10-21 08:37 | Diagnostic Imaging Report ---
CHEST X-RAY: AP view INDICATION: Pneumonia, shortness of breath COMPARISON: Chest x-ray 10/20/2016 FINDINGS: Support devices are stable accounting for differences in positioning. Congestive changes are noted with left effusion. Cardiomegaly is noted. IMPRESSION: Persistent congestive changes and left effusion. Pneumonia of the left lung cannot be excluded.
[2016-10-21] MEDS ORDERED: SODIUM CHLORIDE 0.9% IV ONE (09:00)
[2016-10-21] MEDS ORDERED: POTASSIUM CHLORIDE IV ONE (09:00)
[2016-10-21] MEDS ORDERED: LIDOCAINE IV ONE (09:00)
[2016-10-21] MEDS ORDERED: Potassium Chloride 60 MEQ, Lidocaine 1% 20mL Vial 25 MG in Sodium Chloride 0.9% 500 ML IV ONE (09:15)
[2016-10-21] MEDS: Aspirin 81mg Chewable Tab PO SCH (09:17)
[2016-10-21] MEDS: Pantoprazole 40 mg/Packet PO SCH ×2 (09:17→16:47)
[2016-10-21] MEDS: Lactobacillus Rhamnosus 10 Billion CFU Capsule PO SCH (09:17)
--- NOTE | 2016-10-21 12:19 | Internal Medicine Prog Note ---
Internal Medicine Subjective - Subjective Patient seen and examined:: with staff, chart reviewed Patient is:: asleep, eyes closed, in bed Patient Complaints of:: congestion Per staff patient is:: confused, other (on vent support) Internal Medicine Objective - Results Result Diagrams: 10/21/16 07:00 10/21/16 07:00 Recent Labs: Laboratory Last Values WBC 7.4 Th/cmm (4.8-10.8) D 10/21/16 07:00 RBC 3.49 Mil/cmm (3.80-5.80) L 10/21/16 07:00 Hgb 10.3 gm/dL (12.6-17.4) L 10/21/16 07:00 Hct 30.3 % (39.0-49.0) L 10/21/16 07:00 MCV 86.8 fl (80-99) 10/21/16 07:00 MCH 29.6 pg (27.0-31.0) 10/21/16 07:00 MCHC Differential 34.1 pg (28.0-36.0) 10/21/16 07:00 RDW 14.4 % (11.5-20.0) 10/21/16 07:00 Plt Count 269 Th/cmm (150-400) 10/21/16 07:00 MPV 8.1 fl 10/21/16 07:00 Neutrophils % 81.1 % (40.0-80.0) H 10/21/16 07:00 Band Neutrophils % 2 % (0-10) 10/18/16 07:07 Lymphocytes % 10.6 % (20.0-50.0) L 10/21/16 07:00 Monocytes % 6.0 % (2.0-10.0) 10/21/16 07:00 Eosinophils % 2.2 % (0.0-5.0) 10/21/16 07:00 Basophils % 0.1 % (0.0-2.0) 10/21/16 07:00 Neutrophils (Manual) 87 % (40-80) H 10/18/16 07:07 Lymphocytes 5 % (20-50) L 10/18/16 07:07 Monocytes 6 % (2-10) 10/18/16 07:07 Platelet Estimate ADEQUATE (NORMAL) 10/18/16 07:07 Platelet Morphology NORMAL (NORMAL) 10/18/16 07:07 RBC Morph Micro Appear NORMAL (NORMAL) 10/18/16 07:07 PT 11.5 SECONDS (9.5-11.5) 10/17/16 15:45 INR 1.10 (0.5-1.4) 10/17/16 15:45 PTT (Actin FS) 27.0 SECONDS (26.0-38.0) 10/17/16 15:45 Specimen Source Arterial 10/21/16 08:08 Sample Site Right Radial 10/21/16 08:08 pH 7.45 (7.35-7.45) 10/21/16 08:08 pCO2 42.0 mmHg (35.0-45.0) 10/21/16 08:08 pO2 97.0 mmHg (80.0-100.0) 10/21/16 08:08 HCO3 28.6 mEq/L (20.0-26.0) H 10/21/16 08:08 Base Excess 4.7 mEq/L (-3.0-3.0) H 10/21/16 08:08 O2 Saturation 98.0 % (92.0-100.0) 10/21/16 08:08 Praveen Test Positive 10/21/16 08:08 Vent Rate 6 10/21/16 08:08 Inspired O2 35 10/21/16 08:08 Tidal Volume 500 10/21/16 08:08 PEEP 5 10/21/16 08:08 Pressure (ins/psv/peep) 10 10/21/16 08:08 Critical Value LZHANG 10/21/16 08:08 Sodium 137 mEq/L (136-145) 10/21/16 07:00 Potassium 2.8 mEq/L (3.5-5.1) L* 10/21/16 07:00 Chloride 110 mEq/L (98-107) H 10/21/16 07:00 Carbon Dioxide 27.8 mEq/L (21.0-31.0) 10/21/16 07:00 Anion Gap 2.0 (7.0-16.0) L 10/21/16 07:00 BUN 8 mg/dL (7-25) 10/21/16 07:00 Creatinine 0.4 mg/dL (0.7-1.3) L 10/21/16 07:00 Est GFR ( Amer) TNP 10/21/16 07:00 Est GFR (Non-Af Amer) TNP 10/21/16 07:00 BUN/Creatinine Ratio 20.0 10/21/16 07:00 Glucose 101 mg/dL (70-105) 10/21/16 07:00 POC Glucose 96 MG/DL (70 - 105) 10/19/16 21:03 Whole Bld Lactic Acid 1.17 mmol/L (0.60-1.99) 10/17/16 06:10 Calcium 8.2 mg/dL (8.6-10.3) L 10/21/16 07:00 Phosphorus 2.5 mg/dL (2.5-5.0) 10/18/16 07:07 Magnesium 1.9 mg/dL (1.9-2.7) 10/19/16 05:00 Total Bilirubin 0.2 mg/dL (0.3-1.0) L 10/21/16 07:00 AST 12 U/L (13-39) L 10/21/16 07:00 ALT 10 U/L (7-52) 10/21/16 07:00 Alkaline Phosphatase 51 U/L (34-104) 10/21/16 07:00 Ammonia 36 umol/L (16-53) 10/19/16 05:00 Troponin I 0.02 ng/mL (0.01-0.05) 10/16/16 23:29 B-Natriuretic Peptide 38.5 pg/mL (5.0-100.0) 10/18/16 07:07 Total Protein 4.9 gm/dL (6.0-8.3) L 10/21/16 07:00 Albumin 2.6 gm/dL (4.2-5.5) L 10/21/16 07:00 Globulin 2.3 gm/dL 10/21/16 07:00 Albumin/Globulin Ratio 1.1 (1.0-1.8) 10/21/16 07:00 Vitamin B12 476 pg/mL (211-946) 10/17/16 06:10 Folic Acid >20.0 ng/mL (>3.0) 10/17/16 06:10 TSH 0.47 uIU/ml (0.34-5.60) 10/17/16 06:10 Urine Source [place] 10/17/16 13:35 Urine Color YELLOW 10/17/16 13:35 Urine Clarity SLIGHT HAZY (CLEAR) 10/17/16 13:35 Urine pH 5.0 10/17/16 13:35 Ur Specific [place] 1.025 (1.005-1.030) 10/17/16 13:35 Urine Protein 30 mg/dL (NEGATIVE) H 10/17/16 13:35 Urine Glucose (UA) NEGATIVE mg/dL (NEGATIVE) 10/17/16 13:35 Urine Ketones NEGATIVE mg/dL (NEGATIVE) 10/17/16 13:35 Urine Blood NEGATIVE (NEGATIVE) 10/17/16 13:35 Urine Nitrate NEGATIVE (NEGATIVE) 10/17/16 13:35 Urine Bilirubin NEGATIVE (NEGATIVE) 10/17/16 13:35 Urine Urobilinogen 0.2 E.U./dL (0.2 - 1.0) 10/17/16 13:35 Ur Leukocyte Esterase NEGATIVE (NEGATIVE) 10/17/16 13:35 Urine RBC 0-1 /hpf (0-5) 10/17/16 13:35 Urine WBC 0-2 /hpf (0-5) 10/17/16 13:35 Ur Epithelial Cells OCCASIONAL /lpf (FEW) 10/17/16 13:35 Amorphous Sediment MODERATE URATES (NONE SEEN) 10/17/16 13:35 Urine Bacteria 1+ /hpf (NONE SEEN) H 10/17/16 13:35 Vancomycin Trough 16.7 ug/mL (10-20) 10/20/16 09:32 Carbamazepine < 2.0 ug/ml (4.0-12.0) L 10/16/16 23:29 - Physical Exam Vitals and I&O: Vital Signs Temp 98.2 F 10/21/16 08:00 Pulse 74 10/21/16 11:43 Resp 17 10/21/16 11:00 BP 135/69 10/21/16 11:00 Pulse Ox 98 10/21/16 11:43 Intake & Output 10/20/16 10/21/16 10/21/16 18:59 06:59 18:59 Intake Total 700 250 Output Total 800 Balance -100 250 Intake: Intake, IV Amount 300 250 Cefepime 1 gm In Dextrose 50 5% 50 ml @ 100 mls/hr IV Q12H [facility] Rx#:[id number] Vancomycin HCl 1.25 gm In 250 250 Sodium Chloride 0.9% 250 ml @ 165 mls/hr IV Q12H [facility] Rx#:[id number] Tube Feeding 400 Output: Urine 800 Other: # Bowel Movements 1 Stool Characteristics Formed Formed Active Medications: Current Medications Acetaminophen (Tylenol) 650 mg PO Q4HR PRN PRN Reason: Pain or Fever >101 Stop: 12/16/16 00:48 Last Admin: 10/19/16 05:52 Dose: 650 mg Albuterol Sulfate (Albuterol 2.5mg/3ml Neb Ud) 2.5 mg HHN QIDRT [facility] Stop: 12/16/16 06:59 Last Admin: 10/21/16 11:36 Dose: 2.5 mg Amiodarone HCl (Cordarone) 200 mg PO DAILY [facility] Stop: 12/16/16 08:59 Last Admin: 10/21/16 09:17 Dose: 200 mg Aspirin (Aspirin Chewable) 81 mg PO DAILY [facility] Stop: 12/16/16 08:59 Last Admin: 10/21/16 09:17 Dose: 81 mg Atorvastatin Calcium (Lipitor) 10 mg PO HS [facility] PRN Reason: Protocol Stop: 12/16/16 20:59 Last Admin: 10/20/16 21:42 Dose: 10 mg Bisacodyl (Dulcolax 10 Mg Supp) 10 mg RC Q72H PRN PRN Reason: Constipation Stop: 12/16/16 00:45 Budesonide (Pulmicort) 0.5 mg HHN BIDRT [facility] Stop: 12/16/16 18:59 Last Admin: 10/21/16 07:27 Dose: 0.5 mg Chlorhexidine Gluconate (Peridex) 15 ml MM 08,1999 [facility] Stop: 12/17/16 07:59 Last Admin: 10/21/16 08:18 Dose: 15 ml Donepezil HCl (Aricept) 10 mg PO HS [facility] Stop: 12/16/16 20:59 Last Admin: 10/20/16 21:56 Dose: 10 mg Guaifenesin (Robitussin) 200 mg PO Q4HR PRN PRN Reason: Cough or Congestion Stop: 12/16/16 00:48 Heparin Sodium (Porcine) (Heparin) 5,000 units SUBQ Q12HR [facility] Stop: 12/16/16 08:59 Last Admin: 10/21/16 09:17 Dose: 5,000 units Cefepime HCl 1 gm/ Dextrose 50 mls @ 100 mls/hr IV Q12H [facility] Stop: 12/16/16 00:59 Last Admin: 10/21/16 01:00 Dose: 100 mls/hr Vancomycin HCl 1.25 gm/ Sodium (Chloride) 250 mls @ 165 mls/hr IV Q12H [facility] Stop: 12/16/16 09:59 Last Admin: 10/21/16 10:02 Dose: 165 mls/hr Dextrose/Sodium Chloride (D5-0.45ns) 1,000 mls @ 50 mls/hr IV .Q20H [facility] Stop: 12/17/16 13:27 Last Admin: 10/20/16 09:00 Dose: 50 mls/hr Potassium Chloride 60 meq/Lidocaine HCl 25 mg/ Sodium Chloride 532.5 mls @ 88 mls/hr IV ONCE ONE Stop: 10/21/16 15:18 Ipratropium [place] (Atrovent Neb 0.5mg/2.5ml) 0.5 mg HHN QIDRT [facility] Stop: 12/16/16 06:59 Last Admin: 10/21/16 11:36 Dose: 0.5 mg Lactobacillus Rhamnosus (Culturelle) 1 each PO DAILY [facility] Stop: 12/17/16 08:59 Last Admin: 10/21/16 09:17 Dose: 1 each Lorazepam (Ativan) 1 mg IV Q4HR PRN; Protocol PRN Reason: Seizure Stop: 12/16/16 00:48 Last Admin: 10/18/16 02:25 Dose: 1 mg Magnesium Hydroxide (Milk Of Magnesia) 30 ml PO HS PRN PRN Reason: Constipation Stop: 12/16/16 00:45 Miscellaneous (Vancomycin Iv Per Pharmacy) 1 ea MC PRN [facility] Stop: 12/16/16 00:59 Miscellaneous (Probiotic Screen) 1 ea MC PRN PRN PRN Reason: PROTOCOL Stop: 12/16/16 16:45 Montelukast Sodium (Singulair) 10 mg PO HS [facility] Stop: 12/16/16 20:59 Last Admin: 10/20/16 21:43 Dose: 10 mg Mupirocin (Bactroban Oint) 1 appl NS BID [facility] Stop: 10/23/16 16:59 Last Admin: 10/21/16 09:18 Dose: 1 appl Ondansetron HCl (Zofran) 4 mg IV Q8H PRN PRN Reason: Nausea / Vomiting Stop: 12/16/16 00:48 Pantoprazole Sodium (Protonix) 40 mg PO BID [facility] Stop: 12/16/16 10:29 Last Admin: 10/21/16 09:17 Dose: 40 mg Sodium Phosphate (Fleet Enema) 135 ml RC PRN PRN PRN Reason: Constipation Stop: 12/16/16 00:45 Tamsulosin HCl (Flomax) 0.4 mg PO HS [facility] Stop: 12/16/16 20:59 Last Admin: 10/20/16 21:42 Dose: 0.4 mg General: lethargic, demented HEENT: NC/AT, PERRLA Neck: Supple Lungs: congested, rales, ronchi Cardiovascular: RRR, tachy Abdomen: soft non-tender, globular, other (ngt) Extremities: excoriation, contracture Neurological: no change - Procedures Procedures: Procedures Procedure Code Date ASSISTANCE WITH RESPIRATORY VENTILATION, <24 HRS, CPAP [id number] 06/29/16 EXCISION OF DUODENUM, ENDO, DIAGN [id number] 07/18/16 EXCISION OF ESOPHAGUS, ENDO, DIAGN [id number] 07/18/16 EXCISION OF STOMACH, ENDO, DIAGN [id number] 07/18/16 INSERT EMERGENCY AIRWAY [id number] 10/17/16 INSERTION OF ENDOTRACHEAL AIRWAY INTO TRACHEA, VIA OPENING [id number] 10/17/16 POS AIRWAY PRESSURE CPAP 07818 06/29/16 RESPIRATORY VENTILATION, 24-96 CONSECUTIVE HOURS [id number] 10/17/16 VENT MGMT INPAT INIT DAY 20245 10/17/16 VENT MGMT INPAT SUBQ DAY 33515 10/17/16 Internal Medicine Assmt/Plan - Assessment Assessment: pnm arf copd gerd leukocytosis bacteremeia mrsa nares chf - Plan Plan: cotn on iv abx on vanco and maxi\pime vent support will try to wean off icu protocol dw rn will refer to card Nutritional Asmnt/Malnutr-PDOC - Dietary Evaluation Malnutrition Findings (Please click <Entered> for more info): Nutritional Asmnt/Malnutrition Start: 10/18/16 09: 33 Text: Status: Complete Freq: Document 10/18/16 09:33 GSUN (Rec: 10/18/16 09:38 GSUN [email or web address]) Nutritional Asmnt/Malnutrition Patient General Information Nutritional Screening Consult Diagnosis Acute respiratory failure, PNA , mild PCM, leukocytosis Pertinent Medical Hx/Surgical Hx Coronary artery disease, COPD, GERD, dementia, 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 RD consult for Ruddy <12. Pt with hx of resp failure, intubated in ER and transfered to ICU. Nutren Pulmonary at 20ml/hr. Discussed increasing rate to 30ml/hr with Prosource BID with RN. 30ml/hr to provide 720ml total, 1080kcal, 49g protein. Current Diet Order/ Nutrition Support Nutren Pulmonary 20ml/hr, providing 480ml total, 720kcal , 33g protein Pertinent Medications Lipitor, Dulcolax, D5, Culturelle, MOM, Vancomycin, Zofran, Protonix, Fleet Enema Pertinent Labs 10/18: glucose 111H Nutritional Hx/Data Height 1.73 m Height (Calculated Centimeters) 172.7 Current Weight (lbs) 81.647 kg Weight (Calculated Kilograms) 81.6 Weight (Calculated Grams) 71029.6 Usual body Weight (lbs) 160 [place] Body Weight 154 Weight Status Overweight GI Symptoms Skin Integrity/Comment: Ruddy 12. RN notes: buttock small stage 2 decubitus ulcer. Estimated Nutritional Goals Calories/Kcals/Kg IBW 154lb/70kg Kcals Calculated 1750-2100kcal (25-30kcal/kg) Protein g/kg: IBW Protein Calculated 84-140g (1.2-2g/kg) Fluid: ml 1750-2100ml (1ml/kcal) Nutritional Problem 1. Problem Problem Difficulty chewing/swallowing related to Etiology respiratory distress aeb Signs/Symptoms: intubated, og tube feeding Intervention/Recommendation Comments 1. Recommend increasing Nutren Pulmonary from 20ml/hr to 30ml/hrs, providing to meet 62 % of lower end of estimated kcal needs. RD to closely monitor, recommend to increase rate to meet at least 100% of estimated kcal needs once pt is medically stable on vent. 2. Recommend Prosource BID to meet 100% of estimated prot needs to prevent muscle wasting. Expected Outcomes/Goals Expected Outcomes/Goals Pt to meet at least 60% of estimated kcal and 100% of estimated prot needs with tolerance while newly intubated.
[2016-10-21] MEDS: D5-0.45NS 1,000 ML IV SCH (16:47)
[2016-10-21] MEDS: Atorvastatin Calcium 10 MG TAB PO SCH (21:05)
[2016-10-22 05:10] LABS: NEUTROPHILE ABSOLUTE 6.9 Th/cmm (1.8-8.0); RED CELL DISTRIBUTION WIDTH 14.4 % (11.5-20.0); WHITE BLOOD COUNT 8.5 Th/cmm (4.8-10.8)
[2016-10-22 05:15] LABS: % BASOPHILS 0.9 % (0.0-2.0); % LYMPHOCYTES 9.1 % (20.0-50.0); % MONOCYTES 6.1 % (2.0-10.0); % NEUTROPHILS 81.9 % (40.0-80.0); HEMATOCRIT 29.6 % (39.0-49.0); HEMOGLOBIN 10.2 gm/dL (12.6-17.4); MEAN CELL VOLUME 86.6 fl (80-99); MEAN CORPUSCULAR HEMOGLOBIN 29.8 pg (27.0-31.0); MEAN CORPUSCULAR HGB CONC 34.5 pg (28.0-36.0); MEAN PLATELET VOLUME 7.7 fl; PLATELET COUNT 275 Th/cmm (150-400); RED BLOOD COUNT 3.42 Mil/cmm (3.80-5.80)
[2016-10-22 05:31] LABS: ALKALINE PHOSPHATASE 50 U/L (34-104); ANION GAP 6.4 (7.0-16.0); BILIRUBIN,TOTAL 0.2 mg/dL (0.3-1.0); BUN - UREA NITROGEN 8 mg/dL (7-25); CALCIUM SERUM 8.3 mg/dL (8.6-10.3); CHLORIDE 108 mEq/L (98-107); CREATININE - SERUM 0.4 mg/dL (0.7-1.3); GLUCOSE 96 mg/dL (70-105); POTASSIUM SERUM 3.4 mEq/L (3.5-5.1); SGOT 16 U/L (13-39); SGPT/ALT 14 U/L (7-52); SODIUM SERUM 139 mEq/L (136-145)
[2016-10-22] MEDS: Albuterol Nebulizer 2.5mg/3mL HHN SCH ×4 (07:36→18:38)
[2016-10-22] MEDS: Ipratropium Neb 0.5 mg/2.5 mL UD HHN SCH ×4 (07:36→18:38)
[2016-10-22] MEDS: Budesonide 0.5 Mg/2 mL Ud HHN SCH ×2 (07:36→18:38)
[2016-10-22] MEDS ORDERED: KCL 20mEq/100mL Premix 20 MEQ/100 ML PIGGYBACK IV ONE (08:30)
[2016-10-22 09:23] LABS: ABG SOURCE Arterial; ALLEN TEST Positive; BE(B) 3.9 mEq/L (-3.0-3.0); pH 7.44 (7.35-7.45)
[2016-10-22 09:24] LABS: FIO2 40
[2016-10-22] MEDS: Pantoprazole 40 mg/Packet PO SCH ×2 (09:24→17:52)
[2016-10-22] MEDS: Chlorhexidine Gluconate 0.12% 15mL Mouthwash MM SCH ×2 (09:24→19:45)
[2016-10-22] MEDS: Aspirin 81mg Chewable Tab PO SCH (09:25)
[2016-10-22] MEDS: Lactobacillus Rhamnosus 10 Billion CFU Capsule PO SCH (09:25)
--- NOTE | 2016-10-22 10:28 | Diagnostic Imaging Report ---
CHEST X-RAY: AP view INDICATION: Left effusion and pneumonia COMPARISON: Chest x-ray 10/21/2016 FINDINGS: Right PICC line is stable. Moderate to large left effusion is noted. Cardiomegaly is noted. IMPRESSION: Moderate to large left effusion. Pneumonia of the left lung cannot be excluded. Cardiomegaly.
--- NOTE | 2016-10-22 14:58 | Internal Medicine Prog Note ---
Internal Medicine Subjective - Subjective Patient seen and examined:: with staff, chart reviewed Patient is:: asleep, non-verbal, non-interactive Patient Complaints of:: congestion Internal Medicine Objective - Results Result Diagrams: 10/22/16 04:50 10/22/16 04:50 Recent Labs: Laboratory Last Values WBC 8.5 Th/cmm (4.8-10.8) 10/22/16 04:50 RBC 3.42 Mil/cmm (3.80-5.80) L 10/22/16 04:50 Hgb 10.2 gm/dL (12.6-17.4) L 10/22/16 04:50 Hct 29.6 % (39.0-49.0) L 10/22/16 04:50 MCV 86.6 fl (80-99) 10/22/16 04:50 MCH 29.8 pg (27.0-31.0) 10/22/16 04:50 MCHC Differential 34.5 pg (28.0-36.0) 10/22/16 04:50 RDW 14.4 % (11.5-20.0) 10/22/16 04:50 Plt Count 275 Th/cmm (150-400) 10/22/16 04:50 MPV 7.7 fl 10/22/16 04:50 Neutrophils % 81.9 % (40.0-80.0) H 10/22/16 04:50 Band Neutrophils % 2 % (0-10) 10/18/16 07:07 Lymphocytes % 9.1 % (20.0-50.0) L 10/22/16 04:50 Monocytes % 6.1 % (2.0-10.0) 10/22/16 04:50 Eosinophils % 2.0 % (0.0-5.0) 10/22/16 04:50 Basophils % 0.9 % (0.0-2.0) 10/22/16 04:50 Neutrophils (Manual) 87 % (40-80) H 10/18/16 07:07 Lymphocytes 5 % (20-50) L 10/18/16 07:07 Monocytes 6 % (2-10) 10/18/16 07:07 Platelet Estimate ADEQUATE (NORMAL) 10/18/16 07:07 Platelet Morphology NORMAL (NORMAL) 10/18/16 07:07 RBC Morph Micro Appear NORMAL (NORMAL) 10/18/16 07:07 PT 11.5 SECONDS (9.5-11.5) 10/17/16 15:45 INR 1.10 (0.5-1.4) 10/17/16 15:45 PTT (Actin FS) 27.0 SECONDS (26.0-38.0) 10/17/16 15:45 Specimen Source Arterial 10/22/16 08:12 Sample Site Right Radial 10/22/16 08:12 pH 7.44 (7.35-7.45) 10/22/16 08:12 pCO2 42.0 mmHg (35.0-45.0) 10/22/16 08:12 pO2 138.0 mmHg (80.0-100.0) H 10/22/16 08:12 HCO3 28.0 mEq/L (20.0-26.0) H 10/22/16 08:12 Base Excess 3.9 mEq/L (-3.0-3.0) H 10/22/16 08:12 O2 Saturation 99.0 % (92.0-100.0) 10/22/16 08:12 Praveen Test Positive 10/22/16 08:12 Vent Rate NA 10/22/16 08:12 Inspired O2 40 10/22/16 08:12 Tidal Volume NA 10/22/16 08:12 PEEP NA 10/22/16 08:12 Pressure (ins/psv/peep) NA 10/22/16 08:12 Critical Value LZHANG 10/22/16 08:12 Sodium 139 mEq/L (136-145) 10/22/16 04:50 Potassium 3.4 mEq/L (3.5-5.1) L 10/22/16 04:50 Chloride 108 mEq/L (98-107) H 10/22/16 04:50 Carbon Dioxide 28.0 mEq/L (21.0-31.0) 10/22/16 04:50 Anion Gap 6.4 (7.0-16.0) L 10/22/16 04:50 BUN 8 mg/dL (7-25) 10/22/16 04:50 Creatinine 0.4 mg/dL (0.7-1.3) L 10/22/16 04:50 Est GFR ( Amer) TNP 10/22/16 04:50 Est GFR (Non-Af Amer) TNP 10/22/16 04:50 BUN/Creatinine Ratio 20.0 10/22/16 04:50 Glucose 96 mg/dL (70-105) 10/22/16 04:50 POC Glucose 96 MG/DL (70 - 105) 10/19/16 21:03 Whole Bld Lactic Acid 1.17 mmol/L (0.60-1.99) 10/17/16 06:10 Calcium 8.3 mg/dL (8.6-10.3) L 10/22/16 04:50 Phosphorus 2.5 mg/dL (2.5-5.0) 10/18/16 07:07 Magnesium 1.9 mg/dL (1.9-2.7) 10/19/16 05:00 Total Bilirubin 0.2 mg/dL (0.3-1.0) L 10/22/16 04:50 AST 16 U/L (13-39) 10/22/16 04:50 ALT 14 U/L (7-52) 10/22/16 04:50 Alkaline Phosphatase 50 U/L (34-104) 10/22/16 04:50 Ammonia 36 umol/L (16-53) 10/19/16 05:00 Troponin I 0.02 ng/mL (0.01-0.05) 10/16/16 23:29 B-Natriuretic Peptide 65.6 pg/mL (5.0-100.0) 10/22/16 04:50 Total Protein 5.1 gm/dL (6.0-8.3) L 10/22/16 04:50 Albumin 2.6 gm/dL (4.2-5.5) L 10/22/16 04:50 Globulin 2.5 gm/dL 10/22/16 04:50 Albumin/Globulin Ratio 1.0 (1.0-1.8) 10/22/16 04:50 Vitamin B12 476 pg/mL (211-946) 10/17/16 06:10 Folic Acid >20.0 ng/mL (>3.0) 10/17/16 06:10 TSH 0.47 uIU/ml (0.34-5.60) 10/17/16 06:10 Urine Source [place] 10/17/16 13:35 Urine Color YELLOW 10/17/16 13:35 Urine Clarity SLIGHT HAZY (CLEAR) 10/17/16 13:35 Urine pH 5.0 10/17/16 13:35 Ur Specific [place] 1.025 (1.005-1.030) 10/17/16 13:35 Urine Protein 30 mg/dL (NEGATIVE) H 10/17/16 13:35 Urine Glucose (UA) NEGATIVE mg/dL (NEGATIVE) 10/17/16 13:35 Urine Ketones NEGATIVE mg/dL (NEGATIVE) 10/17/16 13:35 Urine Blood NEGATIVE (NEGATIVE) 10/17/16 13:35 Urine Nitrate NEGATIVE (NEGATIVE) 10/17/16 13:35 Urine Bilirubin NEGATIVE (NEGATIVE) 10/17/16 13:35 Urine Urobilinogen 0.2 E.U./dL (0.2 - 1.0) 10/17/16 13:35 Ur Leukocyte Esterase NEGATIVE (NEGATIVE) 10/17/16 13:35 Urine RBC 0-1 /hpf (0-5) 10/17/16 13:35 Urine WBC 0-2 /hpf (0-5) 10/17/16 13:35 Ur Epithelial Cells OCCASIONAL /lpf (FEW) 10/17/16 13:35 Amorphous Sediment MODERATE URATES (NONE SEEN) 10/17/16 13:35 Urine Bacteria 1+ /hpf (NONE SEEN) H 10/17/16 13:35 Vancomycin Trough 16.7 ug/mL (10-20) 10/20/16 09:32 Carbamazepine < 2.0 ug/ml (4.0-12.0) L 10/16/16 23:29 - Physical Exam Vitals and I&O: Vital Signs Temp 98.0 F 10/22/16 12:00 Pulse 72 10/22/16 14:00 Resp 26 10/22/16 14:00 BP 153/71 10/22/16 14:00 Pulse Ox 100 10/22/16 14:00 Intake & Output 10/21/16 10/22/16 10/22/16 18:59 06:59 18:59 Intake Total 720 1250 Output Total 500 460 Balance 220 790 Intake: Intake, IV Amount 300 300 Cefepime 1 gm In Dextrose 50 50 5% 50 ml @ 100 mls/hr IV Q12H [facility] Rx#:[id number] Vancomycin HCl 1.25 gm In 250 250 Sodium Chloride 0.9% 250 ml @ 165 mls/hr IV Q12H [facility] Rx#:[id number] Oral 950 Tube Feeding 360 Other 60 Output: Urine 500 460 Other: # Bowel Movements 0 0 Stool Characteristics Formed [place] Active Medications: Current Medications Acetaminophen (Tylenol) 650 mg PO Q4HR PRN PRN Reason: Pain or Fever >101 Stop: 12/16/16 00:48 Last Admin: 10/19/16 05:52 Dose: 650 mg Albuterol Sulfate (Albuterol 2.5mg/3ml Neb Ud) 2.5 mg HHN QIDRT [facility] Stop: 12/16/16 06:59 Last Admin: 10/22/16 11:58 Dose: 2.5 mg Amiodarone HCl (Cordarone) 200 mg PO DAILY [facility] Stop: 12/16/16 08:59 Last Admin: 10/22/16 09:24 Dose: Not Given Aspirin (Aspirin Chewable) 81 mg PO DAILY [facility] Stop: 12/16/16 08:59 Last Admin: 10/22/16 09:25 Dose: Not Given Atorvastatin Calcium (Lipitor) 10 mg PO HS [facility] PRN Reason: Protocol Stop: 12/16/16 20:59 Last Admin: 10/21/16 21:05 Dose: Not Given Bisacodyl (Dulcolax 10 Mg Supp) 10 mg RC Q72H PRN PRN Reason: Constipation Stop: 12/16/16 00:45 Budesonide (Pulmicort) 0.5 mg HHN BIDRT [facility] Stop: 12/16/16 18:59 Last Admin: 10/22/16 07:36 Dose: 0.5 mg Chlorhexidine Gluconate (Peridex) 15 ml MM 0800,1999 [facility] Stop: 12/17/16 07:59 Last Admin: 10/22/16 09:24 Dose: Not Given Donepezil HCl (Aricept) 10 mg PO HS [facility] Stop: 12/16/16 20:59 Last Admin: 10/21/16 21:05 Dose: Not Given Guaifenesin (Robitussin) 200 mg PO Q4HR PRN PRN Reason: Cough or Congestion Stop: 12/16/16 00:48 Heparin Sodium (Porcine) (Heparin) 5,000 units SUBQ Q12HR [facility] Stop: 12/16/16 08:59 Last Admin: 10/22/16 09:24 Dose: 5,000 units Cefepime HCl 1 gm/ Dextrose 50 mls @ 100 mls/hr IV Q12H [facility] Stop: 12/16/16 00:59 Last Infusion: 10/22/16 02:00 Dose: Infused Vancomycin HCl 1.25 gm/ Sodium (Chloride) 250 mls @ 165 mls/hr IV Q12H [facility] Stop: 12/16/16 09:59 Last Admin: 10/22/16 09:24 Dose: 165 mls/hr Dextrose/Sodium Chloride (D5-0.45ns) 1,000 mls @ 50 mls/hr IV .Q20H [facility] Stop: 12/17/16 13:27 Last Admin: 10/21/16 16:47 Dose: 50 mls/hr Ipratropium [place] (Atrovent Neb 0.5mg/2.5ml) 0.5 mg HHN QIDRT [facility] Stop: 12/16/16 06:59 Last Admin: 10/22/16 11:58 Dose: 0.5 mg Lactobacillus Rhamnosus (Culturelle) 1 each PO DAILY [facility] Stop: 12/17/16 08:59 Last Admin: 10/22/16 09:25 Dose: Not Given Lorazepam (Ativan) 1 mg IV Q4HR PRN; Protocol PRN Reason: Seizure Stop: 12/16/16 00:48 Last Admin: 10/18/16 02:25 Dose: 1 mg Magnesium Hydroxide (Milk Of Magnesia) 30 ml PO HS PRN PRN Reason: Constipation Stop: 12/16/16 00:45 Miscellaneous (Vancomycin Iv Per Pharmacy) 1 ea MC PRN LORNA Stop: 12/16/16 00:59 Miscellaneous (Probiotic Screen) 1 ea MC PRN PRN PRN Reason: PROTOCOL Stop: 12/16/16 16:45 Montelukast Sodium (Singulair) 10 mg PO HS LORNA Stop: 12/16/16 20:59 Last Admin: 10/21/16 21:05 Dose: Not Given Mupirocin (Bactroban Oint) 1 appl NS BID LORNA Stop: 10/23/16 16:59 Last Admin: 10/22/16 09:24 Dose: 1 appl Ondansetron HCl (Zofran) 4 mg IV Q8H PRN PRN Reason: Nausea / Vomiting Stop: 12/16/16 00:48 Pantoprazole Sodium (Protonix) 40 mg PO BID LORNA Stop: 12/16/16 10:29 Last Admin: 10/22/16 09:24 Dose: Not Given Sodium Phosphate (Fleet Enema) 135 ml RC PRN PRN PRN Reason: Constipation Stop: 12/16/16 00:45 Tamsulosin HCl (Flomax) 0.4 mg PO HS LORNA Stop: 12/16/16 20:59 Last Admin: 10/21/16 21:05 Dose: Not Given General: demented HEENT: NC/AT, PERRLA Neck: Supple, No JVD Lungs: congested, rales, ronchi Cardiovascular: RRR Abdomen: soft non-tender, globular, distended Extremities: excoriation, contracture Neurological: lethargic, unable to follow command - Procedures Procedures: Procedures Procedure Code Date ASSISTANCE WITH RESPIRATORY VENTILATION, <24 HRS, CPAP [id number] 06/29/16 EXCISION OF DUODENUM, ENDO, DIAGN [id number] 07/18/16 EXCISION OF ESOPHAGUS, ENDO, DIAGN [id number] 07/18/16 EXCISION OF STOMACH, ENDO, DIAGN [id number] 07/18/16 INSERT EMERGENCY AIRWAY 18302 10/17/16 POS AIRWAY PRESSURE CPAP 16245 06/29/16 RESPIRATORY VENTILATION, GREATER THAN 96 CONSECUTIVE HOURS [id number] 10/17/16 VENT MGMT INPAT INIT DAY 82511 10/17/16 VENT MGMT INPAT SUBQ DAY 95817 10/17/16 Internal Medicine Assmt/Plan - Assessment Assessment: pnm arf copd gerd leukocytosis bacteremeia mrsa nares chf pleural effusion left - Plan Plan: cotn on iv abx on vanco and maxi\pime vent support will try to wean off icu protocol dw rn will refer to card may do paracentesis Nutritional Asmnt/Malnutr-PDOC - Dietary Evaluation Malnutrition Findings (Please click <Entered> for more info): Nutritional Asmnt/Malnutrition Start: 10/18/16 09: 33 Text: Status: Complete Freq: Document 10/18/16 09:33 GSUN (Rec: 10/18/16 09:38 GSUN [email or web address]) Nutritional Asmnt/Malnutrition Patient General Information Nutritional Screening Consult Diagnosis Acute respiratory failure, PNA , mild PCM, leukocytosis Pertinent Medical Hx/Surgical Hx Coronary artery disease, COPD, GERD, dementia, 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 RD consult for Ruddy <12. Pt with hx of resp failure, intubated in ER and transfered to ICU. Nutren Pulmonary at 20ml/hr. Discussed increasing rate to 30ml/hr with Prosource BID with RN. 30ml/hr to provide 720ml total, 1080kcal, 49g protein. Current Diet Order/ Nutrition Support Nutren Pulmonary 20ml/hr, providing 480ml total, 720kcal , 33g protein Pertinent Medications Lipitor, Dulcolax, D5, Culturelle, MOM, Vancomycin, Zofran, Protonix, Fleet Enema Pertinent Labs 10/18: glucose 111H Nutritional Hx/Data Height 1.73 m Height (Calculated Centimeters) 172.7 Current Weight (lbs) 81.647 kg Weight (Calculated Kilograms) 81.6 Weight (Calculated Grams) 47911.6 Usual body Weight (lbs) 160 [place] Body Weight 154 Weight Status Overweight GI Symptoms Skin Integrity/Comment: Ruddy 12. RN notes: buttock small stage 2 decubitus ulcer. Estimated Nutritional Goals Calories/Kcals/Kg IBW 154lb/70kg Kcals Calculated 1750-2100kcal (25-30kcal/kg) Protein g/kg: IBW Protein Calculated 84-140g (1.2-2g/kg) Fluid: ml 1750-2100ml (1ml/kcal) Nutritional Problem 1. Problem Problem Difficulty chewing/swallowing related to Etiology respiratory distress aeb Signs/Symptoms: intubated, og tube feeding Intervention/Recommendation Comments 1. Recommend increasing Nutren Pulmonary from 20ml/hr to 30ml/hrs, providing to meet 62 % of lower end of estimated kcal needs. RD to closely monitor, recommend to increase rate to meet at least 100% of estimated kcal needs once pt is medically stable on vent. 2. Recommend Prosource BID to meet 100% of estimated prot needs to prevent muscle wasting. Expected Outcomes/Goals Expected Outcomes/Goals Pt to meet at least 60% of estimated kcal and 100% of estimated prot needs with tolerance while newly intubated.
--- NOTE | 2016-10-22 15:17 | Diagnostic Imaging Report ---
CT Chest without IV contrast HISTORY: Left pleural effusion and atelectasis. COMPARISON: Chest x-ray the same day and previous CT chest performed on 09/04/2016. Technique: Axial images were obtained from the base of the neck to the upper abdomen without IV contrast. Reconstructions were made. Total DLP to 37, CTD I 6.1 Findings: Evaluation of mediastinum is limited due to lack of IV contrast. A right PICC line is seen terminating at the cavoatrial junction. The patient is status post median sternotomy. There is a 1.4 cm nodule within the right lobe of thyroid gland with calcifications. Diffuse atherosclerotic vascular disease is noted. Cardiomegaly is noted. No evidence of any aortic aneurysm. There is marked elevation of the left hemidiaphragm. A small to moderate left pleural effusion is seen with left lung compressive atelectasis and consolidative changes. Additional right basal compressive atelectasis is also noted with small right effusion. Few Patchy basal infiltrates are noted. The upper abdomen demonstrates high density in the gallbladder. Nonspecific bilateral perinephric inflammatory changes are noted. 2 mm left renal stone versus vascular calcification is noted. 1.8 CM right renal cyst is noted. Advanced degenerative changes of the spine are noted. IMPRESSION: Markedly elevated left hemidiaphragm with small to moderate left effusion and left basal passive atelectasis and consolidative changes. Additional mild bibasal infiltrates are also noted. Right basal passive atelectasis and mild consolidative changes with small right effusion. Evidence of prior median sternotomy Cardiomegaly and diffuse atherosclerotic vascular disease. 1.4 cm right lobe thyroid nodule with calcifications. Recommend short-term loops follow-up with ultrasound. Punctate left renal stone versus vascular calcification. Nonspecific bilateral perinephric inflammatory changes. High density within the gallbladder which may be due to sludge or vicarious excretion of contrast. Consider follow-up with ultrasound.
[2016-10-22] MEDS: D5-0.45NS 1,000 ML IV SCH (15:34)
--- NOTE | 2016-10-22 17:46 | Progress Notes ---
DATE: 10/17/2016 PROBLEM LIST: 1. Acute respiratory failure. 2. Left-sided effusion. 3. Septicemia. SYMPTOMS: Nil, awake, but not communicative, no respiratory distress, SIMV 6 with a pressure support. PHYSICAL EXAMINATION: VITAL SIGNS: The patient is afebrile, heart rate is 70, blood pressure 130/64, saturation is 99% on 35% of oxygen. NECK: Veins not visualized. CHEST: Shows slightly diminished on the left base. HEART: Regular. ABDOMEN: Soft, nontender. EXTREMITIES: Shows no peripheral edema. LABORATORY DATA: White count is 7.4. ABG appears to be adequate with SIMV of 6 with pressure support. Chest x-ray shows some haziness in left base. ASSESSMENT: The patient clinically appears to be stable, slightly improving. PLANS AND SUGGESTIONS: We will go ahead and extubate the patient to see how he does and go from there. JOB# [id number]
[2016-10-22] MEDS: Atorvastatin Calcium 10 MG TAB PO SCH (20:34)
--- NOTE | 2016-10-22 20:45 | Consultation ---
DATE OF CONSULTATION: 10/21/[address] Quiroz. HISTORY AND PHYSICAL: This is a 76-year-old male patient who was brought to the Emergency Room complaining of shortness of breath. The patient gradually deteriorated. The patient is intubated. Now, the patient has congestive heart failure, aspiration pneumonia, and supraventricular tachycardia, hence Cardiology consult is requested. PAST MEDICAL HISTORY: Aspiration pneumonia, COPD, stable angina, dementia, GERD, metastatic melanoma, diabetes mellitus type 2, mild protein calorie malnutrition, and hypokalemia. FAMILY HISTORY: Unremarkable. SOCIAL HISTORY: No history of smoking or alcohol abuse. ALLERGIES: None. PHYSICAL EXAMINATION: VITAL SIGNS: Blood pressure 130/80, pulse 100, and respirations on ventilator. HEAD: Normocephalic. No lumps or bumps. EYES: Pupils are equal and reactive to light. Fundi show AV nicking, sclerae white, and conjunctivae pink. NECK: Carotid 2+. Normal upstroke. JVD 10 cm above the sternal angle. Thyroid not palpable. Lymph nodes not palpable. CHEST: Shows increased AP diameter. No kyphosis or scoliosis. LUNGS: Bilateral bronchovesicular breath sounds. Bilateral wheezing, rhonchi, and prolonged expiration. HEART: PMI fifth intercostal space with lateral to midclavicular line. S1, S2, S3, S4, systolic murmur, grade 2/6, lower left sternal border without radiation. ABDOMEN: Soft. Liver and spleen not palpable. No organomegaly. Bowel sounds are active. NEUROLOGIC: Difficult to evaluate. EXTREMITIES: Peripheral pulses 1+. No pedal edema. CLINICAL IMPRESSION: Acute respiratory failure, on ventilator; acute exacerbation of chronic obstructive pulmonary disease; aspiration pneumonia; stable angina; dementia; supraventricular tachycardia; gastroesophageal reflux disease; metastatic melanoma; diabetes mellitus type 2; mild protein-calorie malnutrition; and hypokalemia. PLAN: We will give potassium supplement, get echocardiogram, BNP level, and control the heart and blood pressure. Continue IV antibiotics. JOB# [id number]
[2016-10-23] MEDS: Albuterol Nebulizer 2.5mg/3mL HHN SCH ×4 (06:56→19:02)
[2016-10-23] MEDS: Ipratropium Neb 0.5 mg/2.5 mL UD HHN SCH ×4 (06:56→19:02)
[2016-10-23] MEDS: Budesonide 0.5 Mg/2 mL Ud HHN SCH ×2 (06:56→19:02)
[2016-10-23 07:17] LABS: % EOSINOPHILS 3.2 % (0.0-5.0); % LYMPHOCYTES 13.5 % (20.0-50.0); % MONOCYTES 7.3 % (2.0-10.0); HEMATOCRIT 29.6 % (39.0-49.0); HEMOGLOBIN 10.2 gm/dL (12.6-17.4); MEAN CELL VOLUME 85.4 fl (80-99); MEAN CORPUSCULAR HEMOGLOBIN 29.5 pg (27.0-31.0); MEAN CORPUSCULAR HGB CONC 34.5 pg (28.0-36.0); MEAN PLATELET VOLUME 7.4 fl; NEUTROPHILE ABSOLUTE 5.8 Th/cmm (1.8-8.0); PLATELET COUNT 291 Th/cmm (150-400); RED BLOOD COUNT 3.47 Mil/cmm (3.80-5.80); RED CELL DISTRIBUTION WIDTH 14.4 % (11.5-20.0); WHITE BLOOD COUNT 7.9 Th/cmm (4.8-10.8)
[2016-10-23 07:42] LABS: ALKALINE PHOSPHATASE 48 U/L (34-104); ANION GAP 6.3 (7.0-16.0); BILIRUBIN,TOTAL 0.2 mg/dL (0.3-1.0); BUN - UREA NITROGEN 7 mg/dL (7-25); BUN/CREATININE RATIO 17.5; CALCIUM SERUM 8.5 mg/dL (8.6-10.3); CHLORIDE 108 mEq/L (98-107); CREATININE - SERUM 0.4 mg/dL (0.7-1.3); GLUCOSE 97 mg/dL (70-105); POTASSIUM SERUM 3.3 mEq/L (3.5-5.1); SGOT 14 U/L (13-39); SGPT/ALT 13 U/L (7-52); SODIUM SERUM 139 mEq/L (136-145)
[2016-10-23] MEDS: Chlorhexidine Gluconate 0.12% 15mL Mouthwash MM SCH ×2 (09:00→20:26)
[2016-10-23 09:09] LABS: ABG SOURCE Arterial; ALLEN TEST Positive; BE(B) 4.1 mEq/L (-3.0-3.0); CRITICAL VALUES REPORTED BY ACELIS; FIO2 32; HCO3 28.1 mEq/L (20.0-26.0); pH 7.42 (7.35-7.45)
--- NOTE | 2016-10-23 10:11 | Progress Notes ---
DATE: 10/22/2016 PULMONARY PROGRESS NOTE PROBLEMS: 1. Acute respiratory failure, improved. 2. Possible effusion, pneumonia, left side. SYMPTOMS: Nil. The patient is awake, but not too much communicating. Not in any acute respiratory distress. PHYSICAL EXAMINATION: VITAL SIGNS: Temperature is 98, pulse is in 70s, respiratory rate is in low 20s, and saturation is 98 on 40% of ____ mask. NECK: Veins not visualized. CHEST: Shows diminished air entry with occasional rhonchi. HEART: Regular. ABDOMEN: Soft and nontender. EXTREMITIES: Shows no peripheral edema. LABORATORY DATA: The patient's white count is 8,500, hemoglobin is 10.2. ABG shows pO2 is 128 and 40% of oxygen. Electrolytes are okay with sodium 3.4. ASSESSMENT: The patient clinically appears to be stable, slightly improving. PLANS AND SUGGESTIONS: We will try to get a nasal O2 daytime. Continue nocturnal BiPAP. Continue rest of other treatment and go from there. [facility]# [id number]
[2016-10-23] MEDS: Lactobacillus Rhamnosus 10 Billion CFU Capsule PO SCH (10:16)
[2016-10-23] MEDS: Aspirin 81mg Chewable Tab PO SCH (10:17)
[2016-10-23] MEDS: Pantoprazole 40 mg/Packet PO SCH ×2 (10:18→17:00)
--- NOTE | 2016-10-23 12:46 | Internal Medicine Prog Note ---
Internal Medicine Subjective - Subjective Patient seen and examined:: with staff, chart reviewed Patient is:: asleep, non-verbal, non-interactive Patient Complaints of:: congestion Per staff patient is:: no adverse event, no episodes of fall, confused Internal Medicine Objective - Results Result Diagrams: 10/23/16 07:00 10/23/16 07:00 Recent Labs: Laboratory Last Values WBC 7.9 Th/cmm (4.8-10.8) 10/23/16 07:00 RBC 3.47 Mil/cmm (3.80-5.80) L 10/23/16 07:00 Hgb 10.2 gm/dL (12.6-17.4) L 10/23/16 07:00 Hct 29.6 % (39.0-49.0) L 10/23/16 07:00 MCV 85.4 fl (80-99) 10/23/16 07:00 MCH 29.5 pg (27.0-31.0) 10/23/16 07:00 MCHC Differential 34.5 pg (28.0-36.0) 10/23/16 07:00 RDW 14.4 % (11.5-20.0) 10/23/16 07:00 Plt Count 291 Th/cmm (150-400) 10/23/16 07:00 MPV 7.4 fl 10/23/16 07:00 Neutrophils % 75.0 % (40.0-80.0) 10/23/16 07:00 Band Neutrophils % 2 % (0-10) 10/18/16 07:07 Lymphocytes % 13.5 % (20.0-50.0) L 10/23/16 07:00 Monocytes % 7.3 % (2.0-10.0) 10/23/16 07:00 Eosinophils % 3.2 % (0.0-5.0) 10/23/16 07:00 Basophils % 1.0 % (0.0-2.0) 10/23/16 07:00 Neutrophils (Manual) 87 % (40-80) H 10/18/16 07:07 Lymphocytes 5 % (20-50) L 10/18/16 07:07 Monocytes 6 % (2-10) 10/18/16 07:07 Platelet Estimate ADEQUATE (NORMAL) 10/18/16 07:07 Platelet Morphology NORMAL (NORMAL) 10/18/16 07:07 RBC Morph Micro Appear NORMAL (NORMAL) 10/18/16 07:07 PT 11.5 SECONDS (9.5-11.5) 10/17/16 15:45 INR 1.10 (0.5-1.4) 10/17/16 15:45 PTT (Actin FS) 27.0 SECONDS (26.0-38.0) 10/17/16 15:45 Specimen Source Arterial 10/23/16 08:50 Sample Site Left Radial 10/23/16 08:50 pH 7.42 (7.35-7.45) 10/23/16 08:50 pCO2 45.0 mmHg (35.0-45.0) 10/23/16 08:50 pO2 81.0 mmHg (80.0-100.0) 10/23/16 08:50 HCO3 28.1 mEq/L (20.0-26.0) H 10/23/16 08:50 Base Excess 4.1 mEq/L (-3.0-3.0) H 10/23/16 08:50 O2 Saturation 96.0 % (92.0-100.0) 10/23/16 08:50 Praveen Test Positive 10/23/16 08:50 Vent Rate NA 10/23/16 08:50 Inspired O2 32 10/23/16 08:50 Tidal Volume NA 10/23/16 08:50 PEEP NA 10/23/16 08:50 Pressure (ins/psv/peep) NA 10/23/16 08:50 Critical Value ACELIS 10/23/16 08:50 Sodium 139 mEq/L (136-145) 10/23/16 07:00 Potassium 3.3 mEq/L (3.5-5.1) L 10/23/16 07:00 Chloride 108 mEq/L (98-107) H 10/23/16 07:00 Carbon Dioxide 28.0 mEq/L (21.0-31.0) 10/23/16 07:00 Anion Gap 6.3 (7.0-16.0) L 10/23/16 07:00 BUN 7 mg/dL (7-25) 10/23/16 07:00 Creatinine 0.4 mg/dL (0.7-1.3) L 10/23/16 07:00 Est GFR ( Amer) TNP 10/23/16 07:00 Est GFR (Non-Af Amer) TNP 10/23/16 07:00 BUN/Creatinine Ratio 17.5 10/23/16 07:00 Glucose 97 mg/dL (70-105) 10/23/16 07:00 POC Glucose 96 MG/DL (70 - 105) 10/19/16 21:03 Whole Bld Lactic Acid 1.17 mmol/L (0.60-1.99) 10/17/16 06:10 Calcium 8.5 mg/dL (8.6-10.3) L 10/23/16 07:00 Phosphorus 2.5 mg/dL (2.5-5.0) 10/18/16 07:07 Magnesium 1.9 mg/dL (1.9-2.7) 10/19/16 05:00 Total Bilirubin 0.2 mg/dL (0.3-1.0) L 10/23/16 07:00 AST 14 U/L (13-39) 10/23/16 07:00 ALT 13 U/L (7-52) 10/23/16 07:00 Alkaline Phosphatase 48 U/L (34-104) 10/23/16 07:00 Ammonia 36 umol/L (16-53) 10/19/16 05:00 Troponin I 0.02 ng/mL (0.01-0.05) 10/16/16 23:29 B-Natriuretic Peptide 93.1 pg/mL (5.0-100.0) 10/23/16 07:00 Total Protein 4.9 gm/dL (6.0-8.3) L 10/23/16 07:00 Albumin 2.5 gm/dL (4.2-5.5) L 10/23/16 07:00 Globulin 2.4 gm/dL 10/23/16 07:00 Albumin/Globulin Ratio 1.0 (1.0-1.8) 10/23/16 07:00 Vitamin B12 476 pg/mL (211-946) 10/17/16 06:10 Folic Acid >20.0 ng/mL (>3.0) 10/17/16 06:10 TSH 0.47 uIU/ml (0.34-5.60) 10/17/16 06:10 Urine Source [place] 10/17/16 13:35 Urine Color YELLOW 10/17/16 13:35 Urine Clarity SLIGHT HAZY (CLEAR) 10/17/16 13:35 Urine pH 5.0 10/17/16 13:35 Ur Specific [place] 1.025 (1.005-1.030) 10/17/16 13:35 Urine Protein 30 mg/dL (NEGATIVE) H 10/17/16 13:35 Urine Glucose (UA) NEGATIVE mg/dL (NEGATIVE) 10/17/16 13:35 Urine Ketones NEGATIVE mg/dL (NEGATIVE) 10/17/16 13:35 Urine Blood NEGATIVE (NEGATIVE) 10/17/16 13:35 Urine Nitrate NEGATIVE (NEGATIVE) 10/17/16 13:35 Urine Bilirubin NEGATIVE (NEGATIVE) 10/17/16 13:35 Urine Urobilinogen 0.2 E.U./dL (0.2 - 1.0) 10/17/16 13:35 Ur Leukocyte Esterase NEGATIVE (NEGATIVE) 10/17/16 13:35 Urine RBC 0-1 /hpf (0-5) 10/17/16 13:35 Urine WBC 0-2 /hpf (0-5) 10/17/16 13:35 Ur Epithelial Cells OCCASIONAL /lpf (FEW) 10/17/16 13:35 Amorphous Sediment MODERATE URATES (NONE SEEN) 10/17/16 13:35 Urine Bacteria 1+ /hpf (NONE SEEN) H 10/17/16 13:35 Vancomycin Trough 17.3 ug/mL (10-20) 10/23/16 08:55 Carbamazepine < 2.0 ug/ml (4.0-12.0) L 10/16/16 23:29 - Physical Exam Vitals and I&O: Vital Signs Temp 97.8 F 10/23/16 12:00 Pulse 64 10/23/16 12:00 Resp 23 10/23/16 12:00 BP 138/75 10/23/16 12:00 Pulse Ox 100 10/23/16 12:00 Intake & Output 10/22/16 10/23/16 10/23/16 18:59 06:59 18:59 Intake Total 1800 450 Output Total 700 450 Balance 1100 0 Intake: Intake, IV Amount 1300 250 Cefepime 1 gm In Dextrose 50 5% 50 ml @ 100 mls/hr IV Q12H [facility] Rx#:[id number] D5-0.45NS 1,000 ml @ 50 1000 mls/hr IV .Q20H [facility] Rx#: [id number] Vancomycin HCl 1.25 gm In 250 250 Sodium Chloride 0.9% 250 ml @ 165 mls/hr IV Q12H [facility] Rx#:[id number] Oral 500 200 Output: Urine 700 450 Other: # Bowel Movements 1 0 Stool Characteristics Soft Formed Brown Active Medications: Current Medications Acetaminophen (Tylenol) 650 mg PO Q4HR PRN PRN Reason: Pain or Fever >101 Stop: 12/16/16 00:48 Last Admin: 10/19/16 05:52 Dose: 650 mg Albuterol Sulfate (Albuterol 2.5mg/3ml Neb Ud) 2.5 mg HHN QIDRT [facility] Stop: 12/16/16 06:59 Last Admin: 10/23/16 11:08 Dose: 2.5 mg Amiodarone HCl (Cordarone) 200 mg PO DAILY [facility] Stop: 12/16/16 08:59 Last Admin: 10/23/16 10:17 Dose: 200 mg Aspirin (Aspirin Chewable) 81 mg PO DAILY [facility] Stop: 12/16/16 08:59 Last Admin: 10/23/16 10:17 Dose: 81 mg Atorvastatin Calcium (Lipitor) 10 mg PO HS [facility] PRN Reason: Protocol Stop: 12/16/16 20:59 Last Admin: 10/22/16 20:34 Dose: 10 mg Bisacodyl (Dulcolax 10 Mg Supp) 10 mg RC Q72H PRN PRN Reason: Constipation Stop: 12/16/16 00:45 Budesonide (Pulmicort) 0.5 mg HHN BIDRT [facility] Stop: 12/16/16 18:59 Last Admin: 10/23/16 06:56 Dose: 0.5 mg Chlorhexidine Gluconate (Peridex) 15 ml MM 0800,2000 [facility] Stop: 12/17/16 07:59 Last Admin: 10/22/16 19:45 Dose: Not Given Donepezil HCl (Aricept) 10 mg PO HS [facility] Stop: 12/16/16 20:59 Last Admin: 10/22/16 20:34 Dose: 10 mg Guaifenesin (Robitussin) 200 mg PO Q4HR PRN PRN Reason: Cough or Congestion Stop: 12/16/16 00:48 Heparin Sodium (Porcine) (Heparin) 5,000 units SUBQ Q12HR [facility] Stop: 12/16/16 08:59 Last Admin: 10/23/16 10:18 Dose: 5,000 units Cefepime HCl 1 gm/ Dextrose 50 mls @ 100 mls/hr IV Q12H [facility] Stop: 12/16/16 00:59 Last Admin: 10/23/16 00:15 Dose: 100 mls/hr Vancomycin HCl 1.25 gm/ Sodium (Chloride) 250 mls @ 165 mls/hr IV Q12H [facility] Stop: 12/16/16 09:59 Last Admin: 10/23/16 10:21 Dose: 165 mls/hr Dextrose/Sodium Chloride (D5-0.45ns) 1,000 mls @ 50 mls/hr IV .Q20H [facility] Stop: 12/17/16 13:27 Last Admin: 10/22/16 15:34 Dose: 50 mls/hr Ipratropium [place] (Atrovent Neb 0.5mg/2.5ml) 0.5 mg HHN QIDRT [facility] Stop: 12/16/16 06:59 Last Admin: 10/23/16 11:08 Dose: 0.5 mg Lactobacillus Rhamnosus (Culturelle) 1 each PO DAILY [facility] Stop: 12/17/16 08:59 Last Admin: 10/23/16 10:16 Dose: 1 each Lorazepam (Ativan) 1 mg IV Q4HR PRN; Protocol PRN Reason: Seizure Stop: 12/16/16 00:48 Last Admin: 10/18/16 02:25 Dose: 1 mg Magnesium Hydroxide (Milk Of Magnesia) 30 ml PO HS PRN PRN Reason: Constipation Stop: 12/16/16 00:45 Miscellaneous (Vancomycin Iv Per Pharmacy) 1 ea MC PRN [facility] Stop: 12/16/16 00:59 Miscellaneous (Probiotic Screen) 1 ea MC PRN PRN PRN Reason: PROTOCOL Stop: 12/16/16 16:45 Montelukast Sodium (Singulair) 10 mg PO HS [facility] Stop: 12/16/16 20:59 Last Admin: 10/22/16 20:34 Dose: 10 mg Mupirocin (Bactroban Oint) 1 appl NS BID [facility] Stop: 10/23/16 16:59 Last Admin: 10/22/16 17:52 Dose: 1 appl Ondansetron HCl (Zofran) 4 mg IV Q8H PRN PRN Reason: Nausea / Vomiting Stop: 12/16/16 00:48 Pantoprazole Sodium (Protonix) 40 mg PO BID [facility] Stop: 12/16/16 10:29 Last Admin: 10/23/16 10:18 Dose: 40 mg Sodium Phosphate (Fleet Enema) 135 ml RC PRN PRN PRN Reason: Constipation Stop: 12/16/16 00:45 Tamsulosin HCl (Flomax) 0.4 mg PO HS [facility] Stop: 12/16/16 20:59 Last Admin: 10/22/16 20:34 Dose: 0.4 mg General: demented HEENT: NC/AT, PERRLA Neck: Supple Lungs: congested, wheezing, rales Cardiovascular: RRR, Normal S1, Normal S2 Abdomen: soft non-tender, globular Extremities: excoriation, contracture Neurological: no change, lethargic - Procedures Procedures: Procedures Procedure Code Date ASSISTANCE WITH RESPIRATORY VENTILATION, <24 HRS, CPAP [id number] 06/29/16 EXCISION OF DUODENUM, ENDO, DIAGN [id number] 07/18/16 EXCISION OF ESOPHAGUS, ENDO, DIAGN [id number] 07/18/16 EXCISION OF STOMACH, ENDO, DIAGN [id number] 07/18/16 INSERT EMERGENCY AIRWAY 76571 10/17/16 POS AIRWAY PRESSURE CPAP [id number] 06/29/16 RESPIRATORY VENTILATION, GREATER THAN 96 CONSECUTIVE HOURS [id number] 10/17/16 VENT MGMT INPAT INIT DAY 52135 10/17/16 VENT MGMT INPAT SUBQ DAY 97794 10/17/16 Internal Medicine Assmt/Plan - Assessment Assessment: pnm arf copd gerd leukocytosis bacteremeia mrsa nares chf pleural effusion left - Plan Plan: cotn on iv abx on vanco and maxi\pime vent support will try to wean off icu protocol dw rn will refer to card may do paracentesis Nutritional Asmnt/Malnutr-PDOC - Dietary Evaluation Malnutrition Findings (Please click <Entered> for more info): Nutritional Asmnt/Malnutrition Start: 10/18/16 09: 33 Text: Status: Complete Freq: Document 10/18/16 09:33 GSUN (Rec: 10/18/16 09:38 KAILEE [email or web address]) Nutritional Asmnt/Malnutrition Patient General Information Nutritional Screening Consult Diagnosis Acute respiratory failure, PNA , mild PCM, leukocytosis Pertinent Medical Hx/Surgical Hx Coronary artery disease, COPD, GERD, dementia, 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 RD consult for Ruddy <12. Pt with hx of resp failure, intubated in ER and transfered to ICU. Nutren Pulmonary at 20ml/hr. Discussed increasing rate to 30ml/hr with Prosource BID with RN. 30ml/hr to provide 720ml total, 1080kcal, 49g protein. Current Diet Order/ Nutrition Support Nutren Pulmonary 20ml/hr, providing 480ml total, 720kcal , 33g protein Pertinent Medications Lipitor, Dulcolax, D5, Culturelle, MOM, Vancomycin, Zofran, Protonix, Fleet Enema Pertinent Labs 10/18: glucose 111H Nutritional Hx/Data Height 1.73 m Height (Calculated Centimeters) 172.7 Current Weight (lbs) 81.647 kg Weight (Calculated Kilograms) 81.6 Weight (Calculated Grams) 87786.6 Usual body Weight (lbs) 160 [place] Body Weight 154 Weight Status Overweight GI Symptoms Skin Integrity/Comment: Ruddy 12. RN notes: buttock small stage 2 decubitus ulcer. Estimated Nutritional Goals Calories/Kcals/Kg IBW 154lb/70kg Kcals Calculated 1750-2100kcal (25-30kcal/kg) Protein g/kg: IBW Protein Calculated 84-140g (1.2-2g/kg) Fluid: ml 1750-2100ml (1ml/kcal) Nutritional Problem 1. Problem Problem Difficulty chewing/swallowing related to Etiology respiratory distress aeb Signs/Symptoms: intubated, og tube feeding Intervention/Recommendation Comments 1. Recommend increasing Nutren Pulmonary from 20ml/hr to 30ml/hrs, providing to meet 62 % of lower end of estimated kcal needs. RD to closely monitor, recommend to increase rate to meet at least 100% of estimated kcal needs once pt is medically stable on vent. 2. Recommend Prosource BID to meet 100% of estimated prot needs to prevent muscle wasting. Expected Outcomes/Goals Expected Outcomes/Goals Pt to meet at least 60% of estimated kcal and 100% of estimated prot needs with tolerance while newly intubated.
[2016-10-23] MEDS ORDERED: Potassium Chloride 40 MEQ, Lidocaine 1% 20mL Vial 25 MG in Sodium Chloride 0.9% 250 ML IV ONE (12:50)
[2016-10-23] MEDS ORDERED: Scopolamine 1.5 mg/ 72 hr TDM TD SCH (13:00)
--- NOTE | 2016-10-23 14:55 | Diagnostic Imaging Report ---
CHEST X-RAY: 2 AP views INDICATION: NG tube placement COMPARISON: 10/22/2016 at 7:50 AM FINDINGS: The first image demonstrates NG tube within the distal esophagus. The second image demonstrates NG tube within the stomach. There is marked elevation of the left hemidiaphragm with gaseous distended stomach. Small left effusion is seen with volume loss of the left lung and left lung infiltrates. Mild cardiomegaly is noted. Right PICC line is stable. IMPRESSION: NG tube within the stomach. Marked elevation of the left hemidiaphragm with volume loss of the left lung. A small left effusion is also seen with left basal infiltrates.
--- NOTE | 2016-10-23 19:59 | Cardiology ---
10/21/[address] Quiroz M-MODE ECHOCARDIOGRAM: Mitral valve, anterior leaflet of mitral valve shows normal excursion, EF velocity. Posterior leaflet of the mitral valve shows normal excursion. Left ventricular posterior wall shows increased thickness and decreased excursion. Interventricular septum shows increased thickness, decreased excursion, and ejection fraction 40%. Left atrium normal. Aortic root shows normal dimension and normal excursion of aortic leaflets. CONCLUSION: Minimal hypertrophy of the left ventricle, ejection fraction 40%. 2D ECHO: Long axis view showed normal-sized left ventricle with hypertrophy of the left ventricle, ejection fraction 40%. Left atrium normal. Aortic root shows normal dimension and normal excursion of aortic leaflets. CONCLUSION: Minimal hypertrophy of the left ventricle, ejection fraction 40%. 2D ECHO: Long axis view shows enlarged left ventricular cavity with minimal hypertrophy of the left ventricle, ejection fraction 40%. Left atrium normal. Aortic root shows normal dimension and normal excursion of aortic leaflets. Short-axis view mitral valve normal, short-axis view aortic valve normal. Apical four-chamber view shows enlarged left ventricular cavity with hypertrophy of the left ventricle. Left atrium normal. Right ventricular cavity, right atrium normal, no pericardial effusion. CONCLUSION: Minimal hypertrophy of the left ventricle, ejection fraction 40%. Doppler study shows mild mitral regurgitation, mild tricuspid regurgitation, mild aortic regurgitation, and right ventricular systolic pressure 29 mmHg. [facility]# [id number]
[2016-10-23] MEDS: methylPREDNISolone SS 40 mg Vial IVP SCH (20:47)
[2016-10-23] MEDS: Atorvastatin Calcium 10 MG TAB PO SCH (20:47)
[2016-10-24 04:59] LABS: HEMOGLOBIN 11.4 gm/dL (12.6-17.4); RED CELL DISTRIBUTION WIDTH 14.6 % (11.5-20.0)
[2016-10-24 05:06] LABS: MEAN CORPUSCULAR HEMOGLOBIN 29.2 pg (27.0-31.0); MEAN CORPUSCULAR HGB CONC 33.6 pg (28.0-36.0); MEAN PLATELET VOLUME 7.5 fl; PLATELET COUNT 275 Th/cmm (150-400); RED BLOOD COUNT 3.89 Mil/cmm (3.80-5.80); WHITE BLOOD COUNT 7.4 Th/cmm (4.8-10.8)
[2016-10-24] MEDS: methylPREDNISolone SS 40 mg Vial IVP SCH ×3 (05:07→20:24)
[2016-10-24 05:18] LABS: HEMATOCRIT 33.8 % (39.0-49.0)
[2016-10-24 05:45] LABS: ANION GAP 9.7 (7.0-16.0); BUN - UREA NITROGEN 7 mg/dL (7-25); CALCIUM SERUM 9.1 mg/dL (8.6-10.3); CHLORIDE 107 mEq/L (98-107); CREATININE - SERUM 0.5 mg/dL (0.7-1.3); GLUCOSE 161 mg/dL (70-105); POTASSIUM SERUM 3.7 mEq/L (3.5-5.1); SODIUM SERUM 139 mEq/L (136-145)
[2016-10-24 05:59] LABS: BAND NEUTROPHILE 1 % (0-10); NEUTROPHILS 90 % (40-80); PLATELET ESTIMATE ADEQUATE (NORMAL); TOTAL CELLS COUNTED 100
[2016-10-24] MEDS: Budesonide 0.5 Mg/2 mL Ud HHN SCH ×2 (06:53→18:36)
[2016-10-24] MEDS: Albuterol Nebulizer 2.5mg/3mL HHN SCH ×4 (06:53→18:36)
[2016-10-24] MEDS: Ipratropium Neb 0.5 mg/2.5 mL UD HHN SCH ×4 (06:53→18:36)
[2016-10-24] MEDS: Aspirin 81mg Chewable Tab PO SCH (09:00)
[2016-10-24] MEDS: Chlorhexidine Gluconate 0.12% 15mL Mouthwash MM SCH ×2 (09:00→20:24)
[2016-10-24] MEDS: Pantoprazole 40 mg/Packet PO SCH ×2 (09:34→17:00)
[2016-10-24] MEDS: Lactobacillus Rhamnosus 10 Billion CFU Capsule PO SCH (09:34)
--- NOTE | 2016-10-24 09:59 | Diagnostic Imaging Report ---
Head CT without intravenous contrast Indication: CVA Comparison: None Technique: Axial images were obtained from the vertex to the skull base without IV contrast. Coronal reconstructions were made. Total DLP: 695, CTDI35 FINDINGS: Images of the brain obtained contrast demonstrate area of low attenuation edema seen along the right frontal temporal lobe. There is questionable 1.7 cm mass lesion seen along the left frontal lobe region along the subcortical region. There are also low-attenuation changes seen along the right temporal lobe. Additional focal low-attenuation change are seen along the medial aspect of the right occipital lobe. There is 2 mm left to right midline shift. There is diffuse sinusitis. No evidence of a skull fracture or focal soft tissue swelling. Atherosclerosis is noted. IMPRESSION: Ill-defined large area of low attenuation seen along the left frontal and temporal lobe regions. The findings are suggestive of vasogenic edema. There is questionable 1.6 cm mass along the left frontal lobe region. Acute to subacute infarction would be less likely in this region but cannot be completely excluded. There is also 2 mm [id number] midline shift. Additional areas of low-attenuation and probable edema seen involving the right temporal lobe and medial aspect of the right occipital lobe. The constellation of above findings may be due to underlying metastatic disease. Further assessment with MRI with IV contrast is also recommended. ' Atherosclerotic vascular disease. Sinusitis.
--- NOTE | 2016-10-24 13:00 | Internal Medicine Prog Note ---
Internal Medicine Subjective - Subjective Patient seen and examined:: with staff, chart reviewed Patient is:: awake, verbal, interactive, other (coughing) Patient Complaints of:: sore throat Per staff patient is:: no adverse event, no episodes of fall, gagging, agitated , confused Internal Medicine Objective - Results Result Diagrams: 10/24/16 04:42 10/24/16 04:42 Recent Labs: Laboratory Last Values WBC 7.4 Th/cmm (4.8-10.8) 10/24/16 04:42 RBC 3.89 Mil/cmm (3.80-5.80) 10/24/16 04:42 Hgb 11.4 gm/dL (12.6-17.4) L 10/24/16 04:42 Hct 33.8 % (39.0-49.0) L D 10/24/16 04:42 MCV 87.0 fl (80-99) 10/24/16 04:42 MCH 29.2 pg (27.0-31.0) 10/24/16 04:42 MCHC Differential 33.6 pg (28.0-36.0) 10/24/16 04:42 RDW 14.6 % (11.5-20.0) 10/24/16 04:42 Plt Count 275 Th/cmm (150-400) 10/24/16 04:42 MPV 7.5 fl 10/24/16 04:42 Neutrophils % 75.0 % (40.0-80.0) 10/23/16 07:00 Band Neutrophils % 1 % (0-10) 10/24/16 04:42 Lymphocytes % 13.5 % (20.0-50.0) L 10/23/16 07:00 Monocytes % 7.3 % (2.0-10.0) 10/23/16 07:00 Eosinophils % 3.2 % (0.0-5.0) 10/23/16 07:00 Basophils % 1.0 % (0.0-2.0) 10/23/16 07:00 Neutrophils (Manual) 90 % (40-80) H 10/24/16 04:42 Lymphocytes 6 % (20-50) L 10/24/16 04:42 Monocytes 3 % (2-10) 10/24/16 04:42 Platelet Estimate ADEQUATE (NORMAL) 10/24/16 04:42 Platelet Morphology NORMAL (NORMAL) 10/18/16 07:07 RBC Morph Micro Appear NORMAL (NORMAL) 10/18/16 07:07 PT 11.5 SECONDS (9.5-11.5) 10/17/16 15:45 INR 1.10 (0.5-1.4) 10/17/16 15:45 PTT (Actin FS) 27.0 SECONDS (26.0-38.0) 10/17/16 15:45 Specimen Source Arterial 10/23/16 08:50 Sample Site Left Radial 10/23/16 08:50 pH 7.42 (7.35-7.45) 10/23/16 08:50 pCO2 45.0 mmHg (35.0-45.0) 10/23/16 08:50 pO2 81.0 mmHg (80.0-100.0) 10/23/16 08:50 HCO3 28.1 mEq/L (20.0-26.0) H 10/23/16 08:50 Base Excess 4.1 mEq/L (-3.0-3.0) H 10/23/16 08:50 O2 Saturation 96.0 % (92.0-100.0) 10/23/16 08:50 Praveen Test Positive 10/23/16 08:50 Vent Rate NA 10/23/16 08:50 Inspired O2 32 10/23/16 08:50 Tidal Volume NA 10/23/16 08:50 PEEP NA 10/23/16 08:50 Pressure (ins/psv/peep) NA 10/23/16 08:50 Critical Value ACELIS 10/23/16 08:50 Sodium 139 mEq/L (136-145) 10/24/16 04:42 Potassium 3.7 mEq/L (3.5-5.1) 10/24/16 04:42 Chloride 107 mEq/L (98-107) 10/24/16 04:42 Carbon Dioxide 26.0 mEq/L (21.0-31.0) 10/24/16 04:42 Anion Gap 9.7 (7.0-16.0) 10/24/16 04:42 BUN 7 mg/dL (7-25) 10/24/16 04:42 Creatinine 0.5 mg/dL (0.7-1.3) L 10/24/16 04:42 Est GFR ( Amer) TNP 10/24/16 04:42 Est GFR (Non-Af Amer) TNP 10/24/16 04:42 BUN/Creatinine Ratio 14.0 10/24/16 04:42 Glucose 161 mg/dL (70-105) H 10/24/16 04:42 POC Glucose 96 MG/DL (70 - 105) 10/19/16 21:03 Whole Bld Lactic Acid 1.17 mmol/L (0.60-1.99) 10/17/16 06:10 Calcium 9.1 mg/dL (8.6-10.3) 10/24/16 04:42 Phosphorus 2.5 mg/dL (2.5-5.0) 10/18/16 07:07 Magnesium 2.0 mg/dL (1.9-2.7) 10/24/16 04:42 Total Bilirubin 0.2 mg/dL (0.3-1.0) L 10/23/16 07:00 AST 14 U/L (13-39) 10/23/16 07:00 ALT 13 U/L (7-52) 10/23/16 07:00 Alkaline Phosphatase 48 U/L (34-104) 10/23/16 07:00 Ammonia 36 umol/L (16-53) 10/19/16 05:00 Troponin I 0.02 ng/mL (0.01-0.05) 10/16/16 23:29 B-Natriuretic Peptide 93.1 pg/mL (5.0-100.0) 10/23/16 07:00 Total Protein 4.9 gm/dL (6.0-8.3) L 10/23/16 07:00 Albumin 2.5 gm/dL (4.2-5.5) L 10/23/16 07:00 Globulin 2.4 gm/dL 10/23/16 07:00 Albumin/Globulin Ratio 1.0 (1.0-1.8) 10/23/16 07:00 Vitamin B12 476 pg/mL (211-946) 10/17/16 06:10 Folic Acid >20.0 ng/mL (>3.0) 10/17/16 06:10 TSH 0.47 uIU/ml (0.34-5.60) 10/17/16 06:10 Urine Source [place] 10/17/16 13:35 Urine Color YELLOW 10/17/16 13:35 Urine Clarity SLIGHT HAZY (CLEAR) 10/17/16 13:35 Urine pH 5.0 10/17/16 13:35 Ur Specific [place] 1.025 (1.005-1.030) 10/17/16 13:35 Urine Protein 30 mg/dL (NEGATIVE) H 10/17/16 13:35 Urine Glucose (UA) NEGATIVE mg/dL (NEGATIVE) 10/17/16 13:35 Urine Ketones NEGATIVE mg/dL (NEGATIVE) 10/17/16 13:35 Urine Blood NEGATIVE (NEGATIVE) 10/17/16 13:35 Urine Nitrate NEGATIVE (NEGATIVE) 10/17/16 13:35 Urine Bilirubin NEGATIVE (NEGATIVE) 10/17/16 13:35 Urine Urobilinogen 0.2 E.U./dL (0.2 - 1.0) 10/17/16 13:35 Ur Leukocyte Esterase NEGATIVE (NEGATIVE) 10/17/16 13:35 Urine RBC 0-1 /hpf (0-5) 10/17/16 13:35 Urine WBC 0-2 /hpf (0-5) 10/17/16 13:35 Ur Epithelial Cells OCCASIONAL /lpf (FEW) 10/17/16 13:35 Amorphous Sediment MODERATE URATES (NONE SEEN) 10/17/16 13:35 Urine Bacteria 1+ /hpf (NONE SEEN) H 10/17/16 13:35 Vancomycin Trough 17.3 ug/mL (10-20) 10/23/16 08:55 Carbamazepine < 2.0 ug/ml (4.0-12.0) L 10/16/16 23:29 - Physical Exam Vitals and I&O: Vital Signs Temp 97.4 F 10/24/16 08:00 Pulse 73 10/24/16 10:46 Resp 21 10/24/16 10:46 BP 154/80 10/24/16 10:00 Pulse Ox 94 10/24/16 10:46 Intake & Output 10/23/16 10/24/16 10/24/16 18:59 06:59 18:59 Intake Total 360 610 Output Total 800 1000 Balance -440 -390 Intake: Intake, IV Amount 300 300 Cefepime 1 gm In Dextrose 50 50 5% 50 ml @ 100 mls/hr IV Q12H [facility] Rx#:[id number] Vancomycin HCl 1.25 gm In 250 250 Sodium Chloride 0.9% 250 ml @ 165 mls/hr IV Q12H [facility] Rx#:[id number] Oral 60 Tube Feeding 210 Other 100 Output: Urine 800 1000 Other: # Voids 1 # Bowel Movements 0 0 Active Medications: Current Medications Acetaminophen (Tylenol) 650 mg PO Q4HR PRN PRN Reason: Pain or Fever >101 Stop: 12/16/16 00:48 Last Admin: 10/19/16 05:52 Dose: 650 mg Albuterol Sulfate (Albuterol 2.5mg/3ml Neb Ud) 2.5 mg HHN QIDRT [facility] Stop: 12/16/16 06:59 Last Admin: 10/24/16 10:46 Dose: 2.5 mg Amiodarone HCl (Cordarone) 200 mg PO DAILY [facility] Stop: 12/16/16 08:59 Last Admin: 10/24/16 10:05 Dose: 200 mg Aspirin (Aspirin Chewable) 81 mg PO DAILY [facility] Stop: 12/16/16 08:59 Last Admin: 10/24/16 09:00 Dose: 81 mg Atorvastatin Calcium (Lipitor) 10 mg PO HS [facility] PRN Reason: Protocol Stop: 12/16/16 20:59 Last Admin: 10/23/16 20:47 Dose: 10 mg Bisacodyl (Dulcolax 10 Mg Supp) 10 mg RC Q72H PRN PRN Reason: Constipation Stop: 12/16/16 00:45 Budesonide (Pulmicort) 0.5 mg HHN BIDRT [facility] Stop: 12/16/16 18:59 Last Admin: 10/24/16 06:53 Dose: 0.5 mg Chlorhexidine Gluconate (Peridex) 15 ml MM 0800,2000 [facility] Stop: 12/17/16 07:59 Last Admin: 10/24/16 09:00 Dose: Not Given Clonidine HCl (Catapres) 0.1 mg PO Q6HR PRN PRN Reason: SBP GREATER THAN 160 Stop: 12/22/16 20:08 Donepezil HCl (Aricept) 10 mg PO HS [facility] Stop: 12/16/16 20:59 Last Admin: 10/23/16 20:47 Dose: 10 mg Enalaprilat (Vasotec) 1.25 mg IVP Q6HR PRN PRN Reason: SBP ABOVE 160 Stop: 12/23/16 00:00 Last Admin: 10/23/16 22:21 Dose: 1.25 mg Guaifenesin (Robitussin) 200 mg PO Q4HR PRN PRN Reason: Cough or Congestion Stop: 12/16/16 00:48 Heparin Sodium (Porcine) (Heparin) 5,000 units SUBQ Q12HR [facility] Stop: 12/16/16 08:59 Last Admin: 10/24/16 09:34 Dose: 5,000 units Cefepime HCl 1 gm/ Dextrose 50 mls @ 100 mls/hr IV Q12H [facility] Stop: 12/16/16 00:59 Last Infusion: 10/24/16 01:36 Dose: Infused Vancomycin HCl 1.25 gm/ Sodium (Chloride) 250 mls @ 165 mls/hr IV Q12H [facility] Stop: 12/16/16 09:59 Last Admin: 10/24/16 10:07 Dose: 165 mls/hr Dextrose/Sodium Chloride (D5-0.45ns) 1,000 mls @ 50 mls/hr IV .Q20H [facility] Stop: 12/17/16 13:27 Last Admin: 10/22/16 15:34 Dose: 50 mls/hr Ipratropium [place] (Atrovent Neb 0.5mg/2.5ml) 0.5 mg HHN QIDRT [facility] Stop: 12/16/16 06:59 Last Admin: 10/24/16 10:46 Dose: 0.5 mg Lactobacillus Rhamnosus (Culturelle) 1 each PO DAILY [facility] Stop: 12/17/16 08:59 Last Admin: 10/24/16 09:34 Dose: 1 each Lorazepam (Ativan) 1 mg IV Q4HR PRN; Protocol PRN Reason: Seizure Stop: 12/16/16 00:48 Last Admin: 10/18/16 02:25 Dose: 1 mg Magnesium Hydroxide (Milk Of Magnesia) 30 ml PO HS PRN PRN Reason: Constipation Stop: 12/16/16 00:45 Methylprednisolone Sodium Succinate (Solu-Medrol) 40 mg IVP Q8HR [facility] Stop: 12/22/16 20:59 Last Admin: 10/24/16 05:07 Dose: 40 mg Miscellaneous (Vancomycin Iv Per Pharmacy) 1 ea PRN [facility] Stop: 12/16/16 00:59 Miscellaneous (Probiotic Screen) 1 [facility] PRN PRN PRN Reason: PROTOCOL Stop: 12/16/16 16:45 Montelukast Sodium (Singulair) 10 mg PO HS [facility] Stop: 12/16/16 20:59 Last Admin: 10/23/16 20:47 Dose: 10 mg Ondansetron HCl (Zofran) 4 mg IV Q8H PRN PRN Reason: Nausea / Vomiting Stop: 12/16/16 00:48 Pantoprazole Sodium (Protonix) 40 mg PO BID [facility] Stop: 12/16/16 10:29 Last Admin: 10/24/16 09:34 Dose: 40 mg Scopolamine (Transderm Scop Patch) 1 patch TD Q72H [facility] Stop: 12/22/16 12:59 Sodium Phosphate (Fleet Enema) 135 ml RC PRN PRN PRN Reason: Constipation Stop: 12/16/16 00:45 Tamsulosin HCl (Flomax) 0.4 mg PO [facility] Stop: 12/16/16 20:59 Last Admin: 10/23/16 23:16 Dose: 0.4 mg General: demented HEENT: NC/AT, PERRLA Neck: Supple, No JVD Lungs: congested, wheezing, rales Cardiovascular: RRR, Normal S1, Normal S2 Abdomen: soft non-tender, globular, positive bowel sound Extremities: excoriation, contracture Neurological: no change - Procedures Procedures: Procedures Procedure Code Date ASSISTANCE WITH RESPIRATORY VENTILATION, <24 HRS, CPAP 8G01545 06/29/16 EXCISION OF DUODENUM, ENDO, DIAGN [id number] 07/18/16 EXCISION OF ESOPHAGUS, ENDO, DIAGN [id number] 07/18/16 EXCISION OF STOMACH, ENDO, DIAGN [id number] 07/18/16 INSERT EMERGENCY AIRWAY 02076 10/17/16 POS AIRWAY PRESSURE CPAP 68308 06/29/16 RESPIRATORY VENTILATION, GREATER THAN 96 CONSECUTIVE HOURS [id number] 10/17/16 VENT MGMT INPAT INIT DAY 52797 10/17/16 VENT MGMT INPAT SUBQ DAY 72310 10/17/16 Internal Medicine Assmt/Plan - Assessment Assessment: dysphagia pnm arf copd gerd leukocytosis bacteremeia mrsa nares chf pleural effusion left ho melanoma - Plan Plan: cotn on iv abx on vanco and maxi\pime vent support will try to wean off icu protocol dw rn will refer to card may do paracentesis will refer to dr esteves Nutritional Asmnt/Malnutr-PDOC - Dietary Evaluation Malnutrition Findings (Please click <Entered> for more info): Nutritional Asmnt/Malnutrition Start: 10/18/16 09: 33 Text: Status: Complete Freq: Document 10/18/16 09:33 GSUN (Rec: 10/18/16 09:38 GSUN [email or web address]) Nutritional Asmnt/Malnutrition Patient General Information Nutritional Screening Consult Diagnosis Acute respiratory failure, PNA , mild PCM, leukocytosis Pertinent Medical Hx/Surgical Hx Coronary artery disease, COPD, GERD, dementia, 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 RD consult for Ruddy <12. Pt with hx of resp failure, intubated in ER and transfered to ICU. Nutren Pulmonary at 20ml/hr. Discussed increasing rate to 30ml/hr with Prosource BID with RN. 30ml/hr to provide 720ml total, 1080kcal, 49g protein. Current Diet Order/ Nutrition Support Nutren Pulmonary 20ml/hr, providing 480ml total, 720kcal , 33g protein Pertinent Medications Lipitor, Dulcolax, D5, Culturelle, MOM, Vancomycin, Zofran, Protonix, Fleet Enema Pertinent Labs 10/18: glucose 111H Nutritional Hx/Data Height 1.73 m Height (Calculated Centimeters) 172.7 Current Weight (lbs) 81.647 kg Weight (Calculated Kilograms) 81.6 Weight (Calculated Grams) 61184.6 Usual body Weight (lbs) 160 [place] Body Weight 154 Weight Status Overweight GI Symptoms Skin Integrity/Comment: Ruddy 12. RN notes: buttock small stage 2 decubitus ulcer. Estimated Nutritional Goals Calories/Kcals/Kg IBW 154lb/70kg Kcals Calculated 1750-2100kcal (25-30kcal/kg) Protein g/kg: IBW Protein Calculated 84-140g (1.2-2g/kg) Fluid: ml 1750-2100ml (1ml/kcal) Nutritional Problem 1. Problem Problem Difficulty chewing/swallowing related to Etiology respiratory distress aeb Signs/Symptoms: intubated, og tube feeding Intervention/Recommendation Comments 1. Recommend increasing Nutren Pulmonary from 20ml/hr to 30ml/hrs, providing to meet 62 % of lower end of estimated kcal needs. RD to closely monitor, recommend to increase rate to meet at least 100% of estimated kcal needs once pt is medically stable on vent. 2. Recommend Prosource BID to meet 100% of estimated prot needs to prevent muscle wasting. Expected Outcomes/Goals Expected Outcomes/Goals Pt to meet at least 60% of estimated kcal and 100% of estimated prot needs with tolerance while newly intubated.
[2016-10-24] MEDS: Atorvastatin Calcium 10 MG TAB PO SCH (20:25)
[2016-10-24] MEDS: D5-0.45NS 1,000 ML IV SCH (20:25)
[2016-10-25] MEDS: methylPREDNISolone SS 40 mg Vial IVP SCH (04:57)
--- NOTE | 2016-10-25 07:46 | Consultation ---
DATE OF CONSULTATION: 10/24/2016 REASON FOR CONSULTATION: Dysphagia. HISTORY OF PRESENT ILLNESS: This consult was obtained through the courtesy of Dr. Quiroz for this 76-year-old with multiple medical problems including dementia, COPD, coronary artery disease and recurrent respiratory distress admitted to the hospital for another attack. Has not been eating, had a swallowing evaluation where he is the food, is not eating and he is not eating yet. GI consult was called in for further evaluation. PAST MEDICAL HISTORY: Coronary artery disease, COPD, dementia and respiratory insufficiency. PAST SURGICAL HISTORY: He had segmentectomy or lobectomy of his lungs because of melanoma. SOCIAL HISTORY: At this time, the patient is a nonsmoker, nonalcoholic, IV drug abuser. It seems he had been a smoker in the past. FAMILY HISTORY: Noncontributory . ALLERGIES: Levaquin. MEDICATIONS: Tylenol, albuterol, amiodarone, aspirin, atorvastatin, bisacodyl, Pulmicort, cefepime, Peridex, Catapres, Aricept, Vasotec, Robitussin, ipratropium, Culturelle, Ativan, Milk of Magnesia, Solu-Medrol, Singulair and Zofran. REVIEW OF SYSTEMS: Unobtainable. PHYSICAL EXAMINATION: GENERAL: The patient is awake, oriented to self, in no acute distress. VITAL SIGNS: Blood pressure is 126/60, heart rate 75, respiratory rate 20 and temperature is 97.6. HEAD AND NECK: Pupils reactive to light. Extraocular muscles could not be tested. Oral cavity, no lesion. NECK: Supple. No jugular venous distention. No carotid bruit or lymph nodes. CHEST: Good respiratory movements. LUNGS: Showed few rhonchi. CARDIOVASCULAR SYSTEM: Regular rate and rhythm. No murmur or gallop. ABDOMEN: Soft, positive bowel sounds. EXTREMITIES: Lower extremities, no edema. CENTRAL NERVOUS SYSTEM: The patient is moving 4 extremities. LABORATORY DATA: White count is 7.4, H and H 11.4 and 33.8 and platelets 275. The patient PT of 11.5 seconds, a week ago. IMPRESSION: This is a 76-year-old male, not eating enough and pocketing the food. ASSESSMENT AND PLAN: Dysphagia. The patient might benefit from PEG. We will check PT, PTT. We will continue his antibiotics. We will hold the aspirin. If we can get the consent with the family, then PEG in the morning. Other medical problems are such as dementia, COPD, coronary heart disease, respiratory distress, etc., as per Dr. Quiroz. Thank you, Dr. Quiroz for allowing me to participate in the care of the patient. If you have any further questions, please let me know. JOB# [id number] MTDD
[2016-10-25] MEDS: Albuterol Nebulizer 2.5mg/3mL HHN SCH ×4 (07:47→20:12)
[2016-10-25] MEDS: Budesonide 0.5 Mg/2 mL Ud HHN SCH ×2 (07:47→20:12)
[2016-10-25] MEDS: Ipratropium Neb 0.5 mg/2.5 mL UD HHN SCH ×4 (07:47→20:12)
[2016-10-25] MEDS: Chlorhexidine Gluconate 0.12% 15mL Mouthwash MM SCH ×2 (08:00→20:29)
[2016-10-25] MEDS: Pantoprazole 40 mg/Packet PO SCH ×2 (09:00→17:00)
[2016-10-25] MEDS: Lactobacillus Rhamnosus 10 Billion CFU Capsule PO SCH (09:01)
--- NOTE | 2016-10-25 09:15 | Diagnostic Imaging Report ---
Portable chest x-ray HISTORY: Shortness of breath Compared with prior exam of October 24, 2016, no change in density within the left lower hemithorax that corresponds to pleural and parenchymal findings seen on the CT scan of 10/22/2016. The heart is enlarged. Surgical changes noted. IMPRESSION: 1. No change in the cardiopulmonary status.
--- NOTE | 2016-10-25 09:16 | Diagnostic Imaging Report ---
Portable chest x-ray HISTORY: Shortness of breath, nasogastric tube placement Compared to prior exam of 10/23/2016, nasogastric tube has been inserted. The tip extends into the region of the stomach. The heart remains enlarged. Pleural and parenchymal density noted in the left lower hemithorax unchanged. IMPRESSION: 1. Nasogastric tube extending below the diaphragm into the region of the stomach 2. No change in the cardiopulmonary status.
[2016-10-25 09:57] LABS: INR 1.02 (0.5-1.4); PROTHROMBIN TIME (TEST) 10.6 SECONDS (9.5-11.5)
[2016-10-25 09:58] LABS: ANION GAP 7.2 (7.0-16.0); BUN - UREA NITROGEN 15 mg/dL (7-25); CALCIUM SERUM 8.7 mg/dL (8.6-10.3); CARBON DIOXIDE 28.2 mEq/L (21.0-31.0); CHLORIDE 107 mEq/L (98-107); CREATININE - SERUM 0.5 mg/dL (0.7-1.3); GLUCOSE 180 mg/dL (70-105); POTASSIUM SERUM 3.4 mEq/L (3.5-5.1); SODIUM SERUM 139 mEq/L (136-145)
[2016-10-25 10:04] LABS: VANCOMYCIN TROUGH 17.9 ug/mL (10-20)
--- NOTE | 2016-10-25 13:18 | Internal Medicine Prog Note ---
Internal Medicine Subjective - Subjective Patient seen and examined:: with staff, chart reviewed Patient is:: asleep, verbal Patient Complaints of:: congestion Per staff patient is:: no adverse event, agitated, confused Internal Medicine Objective - Results Result Diagrams: 10/24/16 04:42 10/25/16 09:15 Recent Labs: Laboratory Last Values WBC 7.4 Th/cmm (4.8-10.8) 10/24/16 04:42 RBC 3.89 Mil/cmm (3.80-5.80) 10/24/16 04:42 Hgb 11.4 gm/dL (12.6-17.4) L 10/24/16 04:42 Hct 33.8 % (39.0-49.0) L D 10/24/16 04:42 MCV 87.0 fl (80-99) 10/24/16 04:42 MCH 29.2 pg (27.0-31.0) 10/24/16 04:42 MCHC Differential 33.6 pg (28.0-36.0) 10/24/16 04:42 RDW 14.6 % (11.5-20.0) 10/24/16 04:42 Plt Count 275 Th/cmm (150-400) 10/24/16 04:42 MPV 7.5 fl 10/24/16 04:42 Neutrophils % 75.0 % (40.0-80.0) 10/23/16 07:00 Band Neutrophils % 1 % (0-10) 10/24/16 04:42 Lymphocytes % 13.5 % (20.0-50.0) L 10/23/16 07:00 Monocytes % 7.3 % (2.0-10.0) 10/23/16 07:00 Eosinophils % 3.2 % (0.0-5.0) 10/23/16 07:00 Basophils % 1.0 % (0.0-2.0) 10/23/16 07:00 Neutrophils (Manual) 90 % (40-80) H 10/24/16 04:42 Lymphocytes 6 % (20-50) L 10/24/16 04:42 Monocytes 3 % (2-10) 10/24/16 04:42 Platelet Estimate ADEQUATE (NORMAL) 10/24/16 04:42 Platelet Morphology NORMAL (NORMAL) 10/18/16 07:07 RBC Morph Micro Appear NORMAL (NORMAL) 10/18/16 07:07 PT 10.6 SECONDS (9.5-11.5) 10/25/16 09:15 INR 1.02 (0.5-1.4) 10/25/16 09:15 PTT (Actin FS) 27.0 SECONDS (26.0-38.0) 10/17/16 15:45 Specimen Source Arterial 10/23/16 08:50 Sample Site Left Radial 10/23/16 08:50 pH 7.42 (7.35-7.45) 10/23/16 08:50 pCO2 45.0 mmHg (35.0-45.0) 10/23/16 08:50 pO2 81.0 mmHg (80.0-100.0) 10/23/16 08:50 HCO3 28.1 mEq/L (20.0-26.0) H 10/23/16 08:50 Base Excess 4.1 mEq/L (-3.0-3.0) H 10/23/16 08:50 O2 Saturation 96.0 % (92.0-100.0) 10/23/16 08:50 Praveen Test Positive 10/23/16 08:50 Vent Rate NA 10/23/16 08:50 Inspired O2 32 10/23/16 08:50 Tidal Volume NA 10/23/16 08:50 PEEP NA 10/23/16 08:50 Pressure (ins/psv/peep) NA 10/23/16 08:50 Critical Value ACELIS 10/23/16 08:50 Sodium 139 mEq/L (136-145) 10/25/16 09:15 Potassium 3.4 mEq/L (3.5-5.1) L 10/25/16 09:15 Chloride 107 mEq/L (98-107) 10/25/16 09:15 Carbon Dioxide 28.2 mEq/L (21.0-31.0) 10/25/16 09:15 Anion Gap 7.2 (7.0-16.0) 10/25/16 09:15 BUN 15 mg/dL (7-25) 10/25/16 09:15 Creatinine 0.5 mg/dL (0.7-1.3) L 10/25/16 09:15 Est GFR ( Amer) TNP 10/25/16 09:15 Est GFR (Non-Af Amer) TNP 10/25/16 09:15 BUN/Creatinine Ratio 30.0 10/25/16 09:15 Glucose 180 mg/dL (70-105) H 10/25/16 09:15 POC Glucose 96 MG/DL (70 - 105) 10/19/16 21:03 Hemoglobin A1c % 5.4 % (4.0-6.0) 10/25/16 09:15 Whole Bld Lactic Acid 1.17 mmol/L (0.60-1.99) 10/17/16 06:10 Calcium 8.7 mg/dL (8.6-10.3) 10/25/16 09:15 Phosphorus 2.5 mg/dL (2.5-5.0) 10/18/16 07:07 Magnesium 2.0 mg/dL (1.9-2.7) 10/24/16 04:42 Total Bilirubin 0.2 mg/dL (0.3-1.0) L 10/23/16 07:00 AST 14 U/L (13-39) 10/23/16 07:00 ALT 13 U/L (7-52) 10/23/16 07:00 Alkaline Phosphatase 48 U/L (34-104) 10/23/16 07:00 Ammonia 36 umol/L (16-53) 10/19/16 05:00 Troponin I 0.02 ng/mL (0.01-0.05) 10/16/16 23:29 B-Natriuretic Peptide 93.1 pg/mL (5.0-100.0) 10/23/16 07:00 Total Protein 4.9 gm/dL (6.0-8.3) L 10/23/16 07:00 Albumin 2.5 gm/dL (4.2-5.5) L 10/23/16 07:00 Globulin 2.4 gm/dL 10/23/16 07:00 Albumin/Globulin Ratio 1.0 (1.0-1.8) 10/23/16 07:00 Vitamin B12 476 pg/mL (211-946) 10/17/16 06:10 Folic Acid >20.0 ng/mL (>3.0) 10/17/16 06:10 TSH 0.47 uIU/ml (0.34-5.60) 10/17/16 06:10 Urine Source [place] 10/17/16 13:35 Urine Color YELLOW 10/17/16 13:35 Urine Clarity SLIGHT HAZY (CLEAR) 10/17/16 13:35 Urine pH 5.0 10/17/16 13:35 Ur Specific [place] 1.025 (1.005-1.030) 10/17/16 13:35 Urine Protein 30 mg/dL (NEGATIVE) H 10/17/16 13:35 Urine Glucose (UA) NEGATIVE mg/dL (NEGATIVE) 10/17/16 13:35 Urine Ketones NEGATIVE mg/dL (NEGATIVE) 10/17/16 13:35 Urine Blood NEGATIVE (NEGATIVE) 10/17/16 13:35 Urine Nitrate NEGATIVE (NEGATIVE) 10/17/16 13:35 Urine Bilirubin NEGATIVE (NEGATIVE) 10/17/16 13:35 Urine Urobilinogen 0.2 E.U./dL (0.2 - 1.0) 10/17/16 13:35 Ur Leukocyte Esterase NEGATIVE (NEGATIVE) 10/17/16 13:35 Urine RBC 0-1 /hpf (0-5) 10/17/16 13:35 Urine WBC 0-2 /hpf (0-5) 10/17/16 13:35 Ur Epithelial Cells OCCASIONAL /lpf (FEW) 10/17/16 13:35 Amorphous Sediment MODERATE URATES (NONE SEEN) 10/17/16 13:35 Urine Bacteria 1+ /hpf (NONE SEEN) H 10/17/16 13:35 Vancomycin Trough 17.9 ug/mL (10-20) 10/25/16 09:15 Carbamazepine < 2.0 ug/ml (4.0-12.0) L 10/16/16 23:29 - Physical Exam Vitals and I&O: Vital Signs Temp 97.2 F 10/25/16 08:00 Pulse 74 10/25/16 11:20 Resp 20 10/25/16 11:20 BP 152/69 10/25/16 08:00 Pulse Ox 97 10/25/16 11:20 Intake & Output 10/24/16 10/25/16 10/25/16 18:59 06:59 18:59 Intake Total 410 1640 Output Total 700 Balance 410 940 Intake: Intake, IV Amount 300 1300 Cefepime 1 gm In Dextrose 50 50 5% 50 ml @ 100 mls/hr IV Q12H PENDING SALE TO [facility] Rx#:[id number] D5-0.45NS 1,000 ml @ 50 1000 mls/hr IV .Q20H PENDING SALE TO [facility] Rx#: [id number] Vancomycin HCl 1.25 gm In 250 250 Sodium Chloride 0.9% 250 ml @ 165 mls/hr IV Q12H PENDING SALE TO [facility] Rx#:[id number] Tube Feeding 110 220 Other 120 Output: Urine 700 Other: # Bowel Movements 2 0 Active Medications: Current Medications Acetaminophen (Tylenol) 650 mg PO Q4HR PRN PRN Reason: Pain or Fever >101 Stop: 12/16/16 00:48 Last Admin: 10/19/16 05:52 Dose: 650 mg Albuterol Sulfate (Albuterol 2.5mg/3ml Neb Ud) 2.5 mg HHN QIDRT [facility]END[facility] SALE TO [facility] Stop: 12/16/16 06:59 Last Admin: 10/25/16 11:18 Dose: 2.5 mg Amiodarone HCl (Cordarone) 200 mg PO DAILY [facility] Stop: 12/16/16 08:59 Last Admin: 10/25/16 09:00 Dose: 200 mg Atorvastatin Calcium (Lipitor) 10 mg PO HS LORNA PRN Reason: Protocol Stop: 12/16/16 20:59 Last Admin: 10/24/16 20:25 Dose: 10 mg Bisacodyl (Dulcolax 10 Mg Supp) 10 mg RC Q72H PRN PRN Reason: Constipation Stop: 12/16/16 00:45 Budesonide (Pulmicort) 0.5 mg HHN BIDRT [facility] Stop: 12/16/16 18:59 Last Admin: 10/25/16 07:47 Dose: 0.5 mg Chlorhexidine Gluconate (Peridex) 15 ml MM 0800,1999 PEND[facility] SALE TO [facility] Stop: 12/17/16 07:59 Last Admin: 10/25/16 08:00 Dose: Not Given Clonidine HCl (Catapres) 0.1 mg PO Q6HR PRN PRN Reason: SBP GREATER THAN 160 Stop: 12/22/16 20:08 Donepezil HCl (Aricept) 10 mg PO HS [facility] Stop: 12/16/16 20:59 Last Admin: 10/24/16 20:25 Dose: 10 mg Enalaprilat (Vasotec) 1.25 mg IVP Q6HR PRN PRN Reason: SBP ABOVE 160 Stop: 12/23/16 00:00 Last Admin: 10/23/16 22:21 Dose: 1.25 mg Guaifenesin (Robitussin) 200 mg PO Q4HR PRN PRN Reason: Cough or Congestion Stop: 12/16/16 00:48 Heparin Sodium (Porcine) (Heparin) 5,000 units SUBQ Q12HR LORNA Stop: 12/16/16 08:59 Last Admin: 10/25/16 09:01 Dose: 5,000 units Cefepime HCl 1 gm/ Dextrose 50 mls @ 100 mls/hr IV Q12H LORNA Stop: 12/16/16 00:59 Last Infusion: 10/25/16 01:20 Dose: Infused Vancomycin HCl 1.25 gm/ Sodium (Chloride) 250 mls @ 165 mls/hr IV Q12H [facility] TO [facility] Stop: 12/16/16 09:59 Last Admin: 10/25/16 11:14 Dose: 165 mls/hr Dextrose/Sodium Chloride (D5-0.45ns) 1,000 mls @ 50 mls/hr IV .Q20H [facility]END[facility] TO [facility] Stop: 12/17/16 13:27 Last Admin: 10/24/16 20:25 Dose: 50 mls/hr Ipratropium [place] (Atrovent Neb 0.5mg/2.5ml) 0.5 mg HHN QIDRT [facility]END[facility] TO [facility] Stop: 12/16/16 06:59 Last Admin: 10/25/16 11:19 Dose: 0.5 mg Lactobacillus Rhamnosus (Culturelle) 1 each PO DAILY [facility] Stop: 12/17/16 08:59 Last Admin: 10/25/16 09:01 Dose: 1 each Lorazepam (Ativan) 1 mg IV Q4HR PRN; Protocol PRN Reason: Seizure Stop: 12/16/16 00:48 Last Admin: 10/18/16 02:25 Dose: 1 mg Magnesium Hydroxide (Milk Of Magnesia) 30 ml PO HS PRN PRN Reason: Constipation Stop: 12/16/16 00:45 Methylprednisolone Sodium Succinate (Solu-Medrol) 40 mg IVP Q8HR LORNA Stop: 12/22/16 20:59 Last Admin: 10/25/16 04:57 Dose: 40 mg Miscellaneous (Vancomycin Iv Per Pharmacy) 1 ea MC PRN LORNA Stop: 12/16/16 00:59 Miscellaneous (Probiotic Screen) 1 [facility] PRN PRN PRN Reason: PROTOCOL Stop: 12/16/16 16:45 Montelukast Sodium (Singulair) 10 mg PO HS LORNA Stop: 12/16/16 20:59 Last Admin: 10/24/16 20:25 Dose: 10 mg Ondansetron HCl (Zofran) 4 mg IV Q8H PRN PRN Reason: Nausea / Vomiting Stop: 12/16/16 00:48 Pantoprazole Sodium (Protonix) 40 mg PO BID [facility] Stop: 12/16/16 10:29 Last Admin: 10/25/16 09:00 Dose: 40 mg Scopolamine (Transderm Scop Patch) 1 patch TD Q72H PENDING SALE TO [facility] Stop: 12/22/16 12:59 Sodium Phosphate (Fleet Enema) 135 ml RC PRN PRN PRN Reason: Constipation Stop: 12/16/16 00:45 Tamsulosin HCl (Flomax) 0.4 mg PO [facility] Stop: 12/16/16 20:59 Last Admin: 10/24/16 20:26 Dose: 0.4 mg General: demented HEENT: NC/AT, PERRLA Neck: Supple Lungs: congested, rales Cardiovascular: RRR, Normal S1, Normal S2 Abdomen: soft non-tender, globular, positive bowel sound Extremities: excoriation, contracture Neurological: disorganized, unable to follow command - Procedures Procedures: Procedures Procedure Code Date ASSISTANCE WITH RESPIRATORY VENTILATION, <24 HRS, CPAP 6V10257 06/29/16 EXCISION OF DUODENUM, ENDO, DIAGN [id number] 07/18/16 EXCISION OF ESOPHAGUS, ENDO, DIAGN [id number] 07/18/16 EXCISION OF STOMACH, ENDO, DIAGN [id number] 07/18/16 INSERT EMERGENCY AIRWAY [id number] 10/17/16 POS AIRWAY PRESSURE CPAP 16116 06/29/16 RESPIRATORY VENTILATION, GREATER THAN 96 CONSECUTIVE HOURS [id number] 10/17/16 VENT MGMT INPAT INIT DAY 91003 10/17/16 VENT MGMT INPAT SUBQ DAY 78878 10/17/16 Internal Medicine Assmt/Plan - Assessment Assessment: dysphagia pnm arf copd gerd leukocytosis bacteremeia mrsa nares chf pleural effusion left ho melanoma - Plan Plan: cotn on iv abx on vanco and maxi\pime vent support will try to wean off icu protocol dw rn will refer to card may do paracentesis will refer to dr esteves Nutritional Asmnt/Malnutr-PDOC - Dietary Evaluation Malnutrition Findings (Please click <Entered> for more info): Nutritional Asmnt/Malnutrition Start: 10/18/16 09: 33 Text: Status: Complete Freq: Document 10/18/16 09:33 GSUN (Rec: 10/18/16 09:38 GSUN [email or web address]) Nutritional Asmnt/Malnutrition Patient General Information Nutritional Screening Consult Diagnosis Acute respiratory failure, PNA , mild PCM, leukocytosis Pertinent Medical Hx/Surgical Hx Coronary artery disease, COPD, GERD, dementia, 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 RD consult for Ruddy <12. Pt with hx of resp failure, intubated in ER and transfered to ICU. Nutren Pulmonary at 20ml/hr. Discussed increasing rate to 30ml/hr with Prosource BID with RN. 30ml/hr to provide 720ml total, 1080kcal, 49g protein. Current Diet Order/ Nutrition Support Nutren Pulmonary 20ml/hr, providing 480ml total, 720kcal , 33g protein Pertinent Medications Lipitor, Dulcolax, D5, Culturelle, MOM, Vancomycin, Zofran, Protonix, Fleet Enema Pertinent Labs 10/18: glucose 111H Nutritional Hx/Data Height 1.73 m Height (Calculated Centimeters) 172.7 Current Weight (lbs) 81.647 kg Weight (Calculated Kilograms) 81.6 Weight (Calculated Grams) 32141.6 Usual body Weight (lbs) 160 [place] Body Weight 154 Weight Status Overweight GI Symptoms Skin Integrity/Comment: Ruddy 12. RN notes: buttock small stage 2 decubitus ulcer. Estimated Nutritional Goals Calories/Kcals/Kg IBW 154lb/70kg Kcals Calculated 1750-2100kcal (25-30kcal/kg) Protein g/kg: IBW Protein Calculated 84-140g (1.2-2g/kg) Fluid: ml 1750-2100ml (1ml/kcal) Nutritional Problem 1. Problem Problem Difficulty chewing/swallowing related to Etiology respiratory distress aeb Signs/Symptoms: intubated, og tube feeding Intervention/Recommendation Comments 1. Recommend increasing Nutren Pulmonary from 20ml/hr to 30ml/hrs, providing to meet 62 % of lower end of estimated kcal needs. RD to closely monitor, recommend to increase rate to meet at least 100% of estimated kcal needs once pt is medically stable on vent. 2. Recommend Prosource BID to meet 100% of estimated prot needs to prevent muscle wasting. Expected Outcomes/Goals Expected Outcomes/Goals Pt to meet at least 60% of estimated kcal and 100% of estimated prot needs with tolerance while newly intubated.
[2016-10-25] MEDS ORDERED: Meperidine 50 mg/mL 1mL Syr ONE ×2 (13:26→13:46)
[2016-10-25] MEDS: Dexamethasone Sodium Phos 4 mg/mL Vial IVP SCH (18:15)
--- NOTE | 2016-10-25 19:35 | Consultation ---
DATE OF CONSULTATION: 10/25/2016 HEMATOLOGY/ONCOLOGY CONSULTATION REFERRING PHYSICIAN: Lobo Quiroz M.D. REASON FOR CONSULTATION: Prostate cancer, brain mass. HISTORY OF PRESENT ILLNESS: The patient is a 76-year-old male with history of prostate cancer. He was admitted with respiratory failure, required intubation and after extubation he was having dysphagia and did not pass the swallow test, therefore had gastric tube placed. He was suspected to have CVA and CT scan without contrast of the head showed brain lesion was ____ the neck edema suspicious for metastatic cancer; therefore, I was asked to evaluate. PAST MEDICAL HISTORY: Chronic obstructive pulmonary disease, dementia. SOCIAL HISTORY: Resident of [facility]. PAST SURGICAL HISTORY: He had some sort of lung partial resection because of metastatic cancer. MEDICATIONS: Reviewed. PHYSICAL EXAMINATION: GENERAL: The patient is awake, follows commands, he just came back from ____ placement. VITAL SIGNS: Stable. NECK: No lymphadenopathy. CHEST: Scattered rhonchi. ABDOMEN: Gastric tube in place. Abdomen is soft. EXTREMITIES: Edema in both lower extremities, no active bleeding. LABORATORY DATA: White count and platelets are normal. Hemoglobin 11.4. Liver function is normal. Creatinine 0.5. ASSESSMENT: CT scan of the chest and head were reviewed revealing ill defined large area of low attenuation seen on the left frontal and temporal lobe, vasogenic edema, and questionable 1.6 cm mass along the left frontal lobe. These findings are suspicious for metastatic malignancy; therefore, I will repeat the scan of the head with contrast and change the Solu-Medrol to Decadron, obtain PSA and testosterone levels and further management accordingly. Thank you, Dr. Quiroz for the opportunity to participate in the care of this interesting case. JOB# [id number]
--- NOTE | 2016-10-25 19:55 | Operative Report ---
DATE OF SURGERY: 10/25/2016 PROCEDURE: Percutaneous endoscopic gastrostomy tube placement. INDICATION FOR PROCEDURE: Dysphagia. CONSENT: Informed consent was obtained from the patient's family after outlining benefits and risks including infection, bleeding, perforation, and . ANESTHESIA USED: Demerol 37.5 mg and Versed 1.5 mg. PREOPERATIVE DIAGNOSIS: Dysphagia. POSTOPERATIVE DIAGNOSES: Dysphagia, status post G-tube placement. DESCRIPTION OF PROCEDURE: The patient was placed on his back. Head was tilted to the side and flexed forward. Upper Olympus endoscope was introduced into the mouth and advanced through the esophagus, which was intubated under direct visualization. Esophageal mucosa was examined on the way down to be essentially normal. GE junction was identified at 40 cm. Scope was advanced to the stomach. Epigastric mucosa was examined, and the scope was retroflexed to examine the cardia and fundus and it did not show any other abnormalities. Scope was then straightened and advanced towards the pylorus into the duodenum where the bulb and second part were examined and it was normal. The scope was withdrawn to the stomach and an area of transillumination was chosen and the skin overlying the area was sterilized with Betadine, then anesthetized with 1% lidocaine. Anesthesia needle gone to the stomach easily, so skin overlying that area was slightly incised with a scalpel and with a long Angiocath with a trocar was introduced into the stomach and surrounded by the snare. Trocar was then withdrawn while introduced into the stomach and grasped by the snare. Scope was then withdrawn with the snare holding the wire. A size 20 G-tube was connected to the wire, then G-tube was pulled out of the patient's abdomen using standard pull technique. There was a little bit of bleeding from the side, so we did not extend cut and the tube came out easily. G-tube was secured in place. The patient tolerated the procedure well. There were no immediate postoperative complications. RECOMMENDATIONS: 1. May use G-tube for medications. 2. After 12 hours, flush G-tube with 40 mL of water, then start Fibersource at 40 mL an hour. 3. Increase feeding by 10 mL an hour every day up to 60 mL an hour. 4. Check residuals every 6 hours and hold feeding if residual is more than 200 mL. Thank you, Dr. Quiroz for allowing me to participate in the care of the patient. If you have any further questions, please let me know. JOB# [id number]
[2016-10-25] MEDS: D5-0.45NS 1,000 ML IV SCH (19:59)
[2016-10-25] MEDS: Atorvastatin Calcium 10 MG TAB PO SCH (20:51)
[2016-10-26] MEDS: Dexamethasone Sodium Phos 4 mg/mL Vial IVP SCH ×5 (00:07→23:47)
[2016-10-26 07:03] LABS: HEMOGLOBIN 9.9 gm/dL (12.6-17.4); MEAN CELL VOLUME 86.6 fl (80-99); MEAN CORPUSCULAR HEMOGLOBIN 29.4 pg (27.0-31.0); MEAN CORPUSCULAR HGB CONC 33.9 pg (28.0-36.0); PLATELET COUNT 290 Th/cmm (150-400); RED BLOOD COUNT 3.37 Mil/cmm (3.80-5.80); RED CELL DISTRIBUTION WIDTH 14.6 % (11.5-20.0)
[2016-10-26 07:11] LABS: ANION GAP 5.6 (7.0-16.0); BUN - UREA NITROGEN 22 mg/dL (7-25); CALCIUM SERUM 8.8 mg/dL (8.6-10.3); CARBON DIOXIDE 28.2 mEq/L (21.0-31.0); CHLORIDE 110 mEq/L (98-107); CREATININE - SERUM 0.5 mg/dL (0.7-1.3); GLUCOSE 152 mg/dL (70-105); MAGNESIUM 2.2 mg/dL (1.9-2.7); POTASSIUM SERUM 3.8 mEq/L (3.5-5.1); SODIUM SERUM 140 mEq/L (136-145)
[2016-10-26] MEDS: Ipratropium Neb 0.5 mg/2.5 mL UD HHN SCH ×4 (07:21→19:39)
[2016-10-26] MEDS: Budesonide 0.5 Mg/2 mL Ud HHN SCH ×2 (07:21→19:38)
[2016-10-26] MEDS: Albuterol Nebulizer 2.5mg/3mL HHN SCH ×4 (07:21→19:38)
[2016-10-26 08:09] LABS: HEMATOCRIT 29.2 % (39.0-49.0); WHITE BLOOD COUNT 13.4 Th/cmm (4.8-10.8)
[2016-10-26] MEDS: Lactobacillus Rhamnosus 10 Billion CFU Capsule PO SCH (10:19)
[2016-10-26] MEDS: Pantoprazole 40 mg/Packet PO SCH ×2 (10:19→16:29)
--- NOTE | 2016-10-26 10:22 | Diagnostic Imaging Report ---
CT scan of the brain with intravenous contrast HISTORY: Mass. Total DLP equals 683 CTDI equals 35.2 Axial sections were obtained from the base of the skull to the vertex following administration of intravenous contrast. The exam is compared to prior noncontrast study of October 23, 2016. Compared with the prior exam, there is again noted an approximate 1.8 cm slightly hyperdense round lesion within the left parietal region. Suggestion of slight enhancement. Extensive surrounding hypodensity consistent with edema. Mass effect with obscuration of the adjacent cerebral sulci and compression of the left lateral ventricle. There is approximately 3 mm of [id number] midline shift. Findings are consistent with a neoplastic etiology. Again noted is a hypodense focus within the right temporal region and a questionable hypodense focus along the medial portion of the right occipital lobe. IMPRESSION: 1. Slight enhancement associated with an approximate 1.8 cm mass within the left parietal region with extensive edema, mass effect, and left to right midline shift as noted above. Findings are consistent with a neoplastic etiology. 2. No change in a previously reported hypodense focus within the right temporal region and a subtle focus in the right occipital area. Metastatic disease cannot be excluded. If necessary, an MRI exam would provide additional assessment and evaluation.
[2016-10-26 11:37] LABS: BAND NEUTROPHILE 4 % (0-10); NEUTROPHILS 83 % (40-80); TOTAL CELLS COUNTED 100
[2016-10-26 11:38] LABS: PLATELET ESTIMATE ADEQUATE (NORMAL); PLATELET MORPHOLOGY NORMAL (NORMAL)
[2016-10-26] MEDS: D5-0.45NS 1,000 ML IV SCH (13:29)
--- NOTE | 2016-10-26 15:58 | Internal Medicine Prog Note ---
Internal Medicine Subjective - Subjective Patient seen and examined:: with staff, chart reviewed Patient is:: awake, verbal, interactive Patient Complaints of:: congestion Per staff patient is:: no adverse event, confused Internal Medicine Objective - Results Result Diagrams: 10/26/16 06:16 10/26/16 06:16 Recent Labs: Laboratory Last Values WBC 13.4 Th/cmm (4.8-10.8) H D 10/26/16 06:16 RBC 3.37 Mil/cmm (3.80-5.80) L 10/26/16 06:16 Hgb 9.9 gm/dL (12.6-17.4) L 10/26/16 06:16 Hct 29.2 % (39.0-49.0) L D 10/26/16 06:16 MCV 86.6 fl (80-99) 10/26/16 06:16 MCH 29.4 pg (27.0-31.0) 10/26/16 06:16 MCHC Differential 33.9 pg (28.0-36.0) 10/26/16 06:16 RDW 14.6 % (11.5-20.0) 10/26/16 06:16 Plt Count 290 Th/cmm (150-400) 10/26/16 06:16 MPV 8.0 fl 10/26/16 06:16 Neutrophils % 75.0 % (40.0-80.0) 10/23/16 07:00 Band Neutrophils % 4 % (0-10) 10/26/16 06:16 Lymphocytes % 13.5 % (20.0-50.0) L 10/23/16 07:00 Monocytes % 7.3 % (2.0-10.0) 10/23/16 07:00 Eosinophils % 3.2 % (0.0-5.0) 10/23/16 07:00 Basophils % 1.0 % (0.0-2.0) 10/23/16 07:00 Neutrophils (Manual) 83 % (40-80) H 10/26/16 06:16 Lymphocytes 9 % (20-50) L 10/26/16 06:16 Monocytes 4 % (2-10) 10/26/16 06:16 Platelet Estimate ADEQUATE (NORMAL) 10/26/16 06:16 Platelet Morphology NORMAL (NORMAL) 10/26/16 06:16 RBC Morph Micro Appear NORMAL (NORMAL) 10/26/16 06:16 PT 10.6 SECONDS (9.5-11.5) 10/25/16 09:15 INR 1.02 (0.5-1.4) 10/25/16 09:15 PTT (Actin FS) 27.0 SECONDS (26.0-38.0) 10/17/16 15:45 Specimen Source Arterial 10/23/16 08:50 Sample Site Left Radial 10/23/16 08:50 pH 7.42 (7.35-7.45) 10/23/16 08:50 pCO2 45.0 mmHg (35.0-45.0) 10/23/16 08:50 pO2 81.0 mmHg (80.0-100.0) 10/23/16 08:50 HCO3 28.1 mEq/L (20.0-26.0) H 10/23/16 08:50 Base Excess 4.1 mEq/L (-3.0-3.0) H 10/23/16 08:50 O2 Saturation 96.0 % (92.0-100.0) 10/23/16 08:50 Praveen Test Positive 10/23/16 08:50 Vent Rate NA 10/23/16 08:50 Inspired O2 32 10/23/16 08:50 Tidal Volume NA 10/23/16 08:50 PEEP NA 10/23/16 08:50 Pressure (ins/psv/peep) NA 10/23/16 08:50 Critical Value ACELIS 10/23/16 08:50 Sodium 140 mEq/L (136-145) 10/26/16 06:16 Potassium 3.8 mEq/L (3.5-5.1) 10/26/16 06:16 Chloride 110 mEq/L (98-107) H 10/26/16 06:16 Carbon Dioxide 28.2 mEq/L (21.0-31.0) 10/26/16 06:16 Anion Gap 5.6 (7.0-16.0) L 10/26/16 06:16 BUN 22 mg/dL (7-25) 10/26/16 06:16 Creatinine 0.5 mg/dL (0.7-1.3) L 10/26/16 06:16 Est GFR ( Amer) TNP 10/26/16 06:16 Est GFR (Non-Af Amer) TNP 10/26/16 06:16 BUN/Creatinine Ratio 44.0 10/26/16 06:16 Glucose 152 mg/dL (70-105) H 10/26/16 06:16 POC Glucose 96 MG/DL (70 - 105) 10/19/16 21:03 Hemoglobin A1c % 5.4 % (4.0-6.0) 10/25/16 09:15 Whole Bld Lactic Acid 1.17 mmol/L (0.60-1.99) 10/17/16 06:10 Calcium 8.8 mg/dL (8.6-10.3) 10/26/16 06:16 Phosphorus 2.5 mg/dL (2.5-5.0) 10/18/16 07:07 Magnesium 2.2 mg/dL (1.9-2.7) 10/26/16 06:16 Total Bilirubin 0.2 mg/dL (0.3-1.0) L 10/23/16 07:00 AST 14 U/L (13-39) 10/23/16 07:00 ALT 13 U/L (7-52) 10/23/16 07:00 Alkaline Phosphatase 48 U/L (34-104) 10/23/16 07:00 Ammonia 36 umol/L (16-53) 10/19/16 05:00 Troponin I 0.02 ng/mL (0.01-0.05) 10/16/16 23:29 B-Natriuretic Peptide 93.1 pg/mL (5.0-100.0) 10/23/16 07:00 Total Protein 4.9 gm/dL (6.0-8.3) L 10/23/16 07:00 Albumin 2.5 gm/dL (4.2-5.5) L 10/23/16 07:00 Globulin 2.4 gm/dL 10/23/16 07:00 Albumin/Globulin Ratio 1.0 (1.0-1.8) 10/23/16 07:00 Prostate Specific Ag 11.0 ng/mL (0.0-4.0) H 10/25/16 09:15 Vitamin B12 476 pg/mL (211-946) 10/17/16 06:10 Folic Acid >20.0 ng/mL (>3.0) 10/17/16 06:10 TSH 0.47 uIU/ml (0.34-5.60) 10/17/16 06:10 Urine Source [place] 10/17/16 13:35 Urine Color YELLOW 10/17/16 13:35 Urine Clarity SLIGHT HAZY (CLEAR) 10/17/16 13:35 Urine pH 5.0 10/17/16 13:35 Ur Specific [place] 1.025 (1.005-1.030) 10/17/16 13:35 Urine Protein 30 mg/dL (NEGATIVE) H 10/17/16 13:35 Urine Glucose (UA) NEGATIVE mg/dL (NEGATIVE) 10/17/16 13:35 Urine Ketones NEGATIVE mg/dL (NEGATIVE) 10/17/16 13:35 Urine Blood NEGATIVE (NEGATIVE) 10/17/16 13:35 Urine Nitrate NEGATIVE (NEGATIVE) 10/17/16 13:35 Urine Bilirubin NEGATIVE (NEGATIVE) 10/17/16 13:35 Urine Urobilinogen 0.2 E.U./dL (0.2 - 1.0) 10/17/16 13:35 Ur Leukocyte Esterase NEGATIVE (NEGATIVE) 10/17/16 13:35 Urine RBC 0-1 /hpf (0-5) 10/17/16 13:35 Urine WBC 0-2 /hpf (0-5) 10/17/16 13:35 Ur Epithelial Cells OCCASIONAL /lpf (FEW) 10/17/16 13:35 Amorphous Sediment MODERATE URATES (NONE SEEN) 10/17/16 13:35 Urine Bacteria 1+ /hpf (NONE SEEN) H 10/17/16 13:35 Vancomycin Trough 17.9 ug/mL (10-20) 10/25/16 09:15 Carbamazepine < 2.0 ug/ml (4.0-12.0) L 10/16/16 23:29 - Physical Exam Vitals and I&O: Vital Signs Temp 98.1 F 10/26/16 12:00 Pulse 70 10/26/16 15:32 Resp 18 10/26/16 15:32 BP 123/57 10/26/16 14:00 Pulse Ox 98 10/26/16 15:32 Intake & Output 10/25/16 10/26/16 10/26/16 18:59 06:59 18:59 Intake Total 1250 317.550 0898 Output Total 450 300 Balance 800 985.706 5183 Intake: Intake, IV Amount 1250 513.775 4704 Cefepime 1 gm In Dextrose 50.000 50 5% 50 ml @ 100 mls/hr IV Q12H [facility] Rx#:[id number] D5-0.45NS 1,000 ml @ 50 1000 875 mls/hr IV .Q20H [facility] Rx#: [id number] Vancomycin HCl 1.25 gm In 250 250 250 Sodium Chloride 0.9% 250 ml @ 165 mls/hr IV Q12H [facility] Rx#:[id number] Oral 0 Tube Feeding 160 Other 40 Output: Urine 450 300 Other: # Bowel Movements 1 Active Medications: Current Medications Acetaminophen (Tylenol) 650 mg PO Q4HR PRN PRN Reason: Pain or Fever >101 Stop: 12/16/16 00:48 Last Admin: 10/19/16 05:52 Dose: 650 mg Albuterol Sulfate (Albuterol 2.5mg/3ml Neb Ud) 2.5 mg HHN QIDRT [facility] Stop: 12/16/16 06:59 Last Admin: 10/26/16 15:28 Dose: 2.5 mg Amiodarone HCl (Cordarone) 200 mg PO DAILY [facility] Stop: 12/16/16 08:59 Last Admin: 10/26/16 10:19 Dose: 200 mg Atorvastatin Calcium (Lipitor) 10 mg PO HS [facility] PRN Reason: Protocol Stop: 12/16/16 20:59 Last Admin: 10/25/16 20:51 Dose: Not Given Bisacodyl (Dulcolax 10 Mg Supp) 10 mg RC Q72H PRN PRN Reason: Constipation Stop: 12/16/16 00:45 Budesonide (Pulmicort) 0.5 mg HHN BIDRT [facility] Stop: 12/16/16 18:59 Last Admin: 10/26/16 07:21 Dose: 0.5 mg Clonidine HCl (Catapres) 0.1 mg PO Q6HR PRN PRN Reason: SBP GREATER THAN 160 Stop: 12/22/16 20:08 Dexamethasone Sodium Phosphate (Decadron) 4 mg IVP Q6HR [facility] Stop: 12/24/16 17:59 Last Admin: 10/26/16 13:28 Dose: 4 mg Donepezil HCl (Aricept) 10 mg PO HS [facility] Stop: 12/16/16 20:59 Last Admin: 10/25/16 20:51 Dose: Not Given Enalaprilat (Vasotec) 1.25 mg IVP Q6HR PRN PRN Reason: SBP ABOVE 160 Stop: 12/23/16 00:00 Last Admin: 10/23/16 22:21 Dose: 1.25 mg Guaifenesin (Robitussin) 200 mg PO Q4HR PRN PRN Reason: Cough or Congestion Stop: 12/16/16 00:48 Heparin Sodium (Porcine) (Heparin) 5,000 units SUBQ Q12HR [facility] Stop: 12/16/16 08:59 Last Admin: 10/26/16 10:18 Dose: 5,000 units Cefepime HCl 1 gm/ Dextrose 50 mls @ 100 mls/hr IV Q12H [facility] Stop: 12/16/16 00:59 Last Infusion: 10/26/16 14:00 Dose: Infused Vancomycin HCl 1.25 gm/ Sodium (Chloride) 250 mls @ 165 mls/hr IV Q12H [facility] Stop: 12/16/16 09:59 Last Infusion: 10/26/16 12:00 Dose: Infused Dextrose/Sodium Chloride (D5-0.45ns) 1,000 mls @ 50 mls/hr IV .Q20H [facility] Stop: 12/17/16 13:27 Last Admin: 10/26/16 13:29 Dose: 50 mls/hr Ipratropium [place] (Atrovent Neb 0.5mg/2.5ml) 0.5 mg HHN QIDRT [facility] Stop: 12/16/16 06:59 Last Admin: 10/26/16 15:28 Dose: 0.5 mg Lactobacillus Rhamnosus (Culturelle) 1 each PO DAILY [facility] Stop: 12/17/16 08:59 Last Admin: 10/26/16 10:19 Dose: 1 each Lorazepam (Ativan) 1 mg IV Q4HR PRN; Protocol PRN Reason: Seizure Stop: 12/16/16 00:48 Last Admin: 10/18/16 02:25 Dose: 1 mg Magnesium Hydroxide (Milk Of Magnesia) 30 ml PO HS PRN PRN Reason: Constipation Stop: 12/16/16 00:45 Miscellaneous (Vancomycin Iv Per Pharmacy) 1 ea [facility] PRN [facility] Stop: 12/16/16 00:59 Miscellaneous (Probiotic Screen) 1 [facility] PRN PRN PRN Reason: PROTOCOL Stop: 12/16/16 16:45 Montelukast Sodium (Singulair) 10 mg PO HS [facility] Stop: 12/16/16 20:59 Last Admin: 10/25/16 20:51 Dose: Not Given Ondansetron HCl (Zofran) 4 mg IV Q8H PRN PRN Reason: Nausea / Vomiting Stop: 12/16/16 00:48 Pantoprazole Sodium (Protonix) 40 mg PO BID [facility] Stop: 12/16/16 10:29 Last Admin: 10/26/16 10:19 Dose: 40 mg Scopolamine (Transderm Scop Patch) 1 patch TD Q72H [facility] Stop: 12/22/16 12:59 Sodium Phosphate (Fleet Enema) 135 ml RC PRN PRN PRN Reason: Constipation Stop: 12/16/16 00:45 Tamsulosin HCl (Flomax) 0.4 mg PO [facility] Stop: 12/16/16 20:59 Last Admin: 10/25/16 20:51 Dose: Not Given General: demented HEENT: NC/AT, PERRLA Neck: Supple Lungs: congested, wheezing, rales Cardiovascular: RRR, Normal S1, Normal S2 Abdomen: soft non-tender, globular, +GT Extremities: excoriation, contracture Neurological: disorganized, unable to follow command - Procedures Procedures: Procedures Procedure Code Date ASSISTANCE WITH RESPIRATORY VENTILATION, <24 HRS, CPAP [id number] 06/29/16 EXCISION OF DUODENUM, ENDO, DIAGN [id number] 07/18/16 EXCISION OF ESOPHAGUS, ENDO, DIAGN [id number] 07/18/16 EXCISION OF STOMACH, ENDO, DIAGN [id number] 07/18/16 INSERT EMERGENCY AIRWAY 24610 10/17/16 POS AIRWAY PRESSURE CPAP 66021 06/29/16 RESPIRATORY VENTILATION, GREATER THAN 96 CONSECUTIVE HOURS [id number] 10/17/16 VENT MGMT INPAT INIT DAY 97626 10/17/16 VENT MGMT INPAT SUBQ DAY 17535 10/17/16 Internal Medicine Assmt/Plan - Assessment Assessment: dysphagia pnm arf copd gerd leukocytosis bacteremeia mrsa nares chf pleural effusion left ho melanoma - Plan Plan: cotn on iv abx on vanco and maxi\pime vent support will try to wean off icu protocol dw rn will refer to card may do paracentesis will refer to dr esteves Nutritional Asmnt/Malnutr-PDOC - Dietary Evaluation Malnutrition Findings (Please click <Entered> for more info): Nutritional Asmnt/Malnutrition Start: 10/18/16 09: 33 Text: Status: Complete Freq: Document 10/18/16 09:33 GSUN (Rec: 10/18/16 09:38 GSUN [email or web address]) Nutritional Asmnt/Malnutrition Patient General Information Nutritional Screening Consult Diagnosis Acute respiratory failure, PNA , mild PCM, leukocytosis Pertinent Medical Hx/Surgical Hx Coronary artery disease, COPD, GERD, dementia, 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 RD consult for Ruddy <12. Pt with hx of resp failure, intubated in ER and transfered to ICU. Nutren Pulmonary at 20ml/hr. Discussed increasing rate to 30ml/hr with Prosource BID with RN. 30ml/hr to provide 720ml total, 1080kcal, 49g protein. Current Diet Order/ Nutrition Support Nutren Pulmonary 20ml/hr, providing 480ml total, 720kcal , 33g protein Pertinent Medications Lipitor, Dulcolax, D5, Culturelle, MOM, Vancomycin, Zofran, Protonix, Fleet Enema Pertinent Labs 10/18: glucose 111H Nutritional Hx/Data Height 1.73 m Height (Calculated Centimeters) 172.7 Current Weight (lbs) 81.647 kg Weight (Calculated Kilograms) 81.6 Weight (Calculated Grams) 96989.6 Usual body Weight (lbs) 160 [place] Body Weight 154 Weight Status Overweight GI Symptoms Skin Integrity/Comment: Ruddy 12. RN notes: buttock small stage 2 decubitus ulcer. Estimated Nutritional Goals Calories/Kcals/Kg IBW 154lb/70kg Kcals Calculated 1750-2100kcal (25-30kcal/kg) Protein g/kg: IBW Protein Calculated 84-140g (1.2-2g/kg) Fluid: ml 1750-2100ml (1ml/kcal) Nutritional Problem 1. Problem Problem Difficulty chewing/swallowing related to Etiology respiratory distress aeb Signs/Symptoms: intubated, og tube feeding Intervention/Recommendation Comments 1. Recommend increasing Nutren Pulmonary from 20ml/hr to 30ml/hrs, providing to meet 62 % of lower end of estimated kcal needs. RD to closely monitor, recommend to increase rate to meet at least 100% of estimated kcal needs once pt is medically stable on vent. 2. Recommend Prosource BID to meet 100% of estimated prot needs to prevent muscle wasting. Expected Outcomes/Goals Expected Outcomes/Goals Pt to meet at least 60% of estimated kcal and 100% of estimated prot needs with tolerance while newly intubated.
[2016-10-26] MEDS: Atorvastatin Calcium 10 MG TAB PO SCH (21:35)
[2016-10-27 05:03] LABS: HEMATOCRIT 28.2 % (39.0-49.0); HEMOGLOBIN 9.5 gm/dL (12.6-17.4); MEAN CELL VOLUME 85.7 fl (80-99); MEAN CORPUSCULAR HGB CONC 33.8 pg (28.0-36.0); MEAN PLATELET VOLUME 7.8 fl; PLATELET COUNT 315 Th/cmm (150-400); RED BLOOD COUNT 3.29 Mil/cmm (3.80-5.80); RED CELL DISTRIBUTION WIDTH 14.6 % (11.5-20.0)
[2016-10-27 05:31] LABS: ALB/GLOB RATIO 1.1 (1.0-1.8); ALKALINE PHOSPHATASE 42 U/L (34-104); BILIRUBIN,TOTAL 0.2 mg/dL (0.3-1.0); BUN - UREA NITROGEN 23 mg/dL (7-25); CALCIUM SERUM 8.5 mg/dL (8.6-10.3); CARBON DIOXIDE 27.8 mEq/L (21.0-31.0); CHLORIDE 110 mEq/L (98-107); CREATININE - SERUM 0.5 mg/dL (0.7-1.3); GLUCOSE 198 mg/dL (70-105); POTASSIUM SERUM 3.8 mEq/L (3.5-5.1); SGOT 12 U/L (13-39); SGPT/ALT 14 U/L (7-52); SODIUM SERUM 141 mEq/L (136-145)
[2016-10-27 05:32] LABS: WHITE BLOOD COUNT 9.8 Th/cmm (4.8-10.8)
[2016-10-27] MEDS: Dexamethasone Sodium Phos 4 mg/mL Vial IVP SCH ×3 (05:38→17:27)
[2016-10-27 06:50] LABS: BAND NEUTROPHILE 5 % (0-10); NEUTROPHILS 82 % (40-80); TOTAL CELLS COUNTED 100
[2016-10-27 06:51] LABS: PLATELET ESTIMATE ADEQUATE (NORMAL); PLATELET MORPHOLOGY NORMAL (NORMAL)
[2016-10-27] MEDS: Albuterol Nebulizer 2.5mg/3mL HHN SCH ×4 (07:31→19:02)
[2016-10-27] MEDS: Budesonide 0.5 Mg/2 mL Ud HHN SCH ×2 (07:31→19:02)
[2016-10-27] MEDS: Ipratropium Neb 0.5 mg/2.5 mL UD HHN SCH ×4 (07:31→19:03)
[2016-10-27] MEDS: Pantoprazole 40 mg/Packet PO SCH ×2 (08:22→16:30)
[2016-10-27] MEDS: Lactobacillus Rhamnosus 10 Billion CFU Capsule PO SCH (08:23)
[2016-10-27] MEDS: D5-0.45NS 1,000 ML IV SCH (13:01)
--- NOTE | 2016-10-27 15:15 | Internal Medicine Prog Note ---
Internal Medicine Subjective - Subjective Patient seen and examined:: with staff, chart reviewed Patient is:: awake, verbal, interactive Patient Complaints of:: congestion Per staff patient is:: no adverse event, no episodes of fall Internal Medicine Objective - Results Result Diagrams: 10/27/16 04:45 10/27/16 04:45 Recent Labs: Laboratory Last Values WBC 9.8 Th/cmm (4.8-10.8) D 10/27/16 04:45 RBC 3.29 Mil/cmm (3.80-5.80) L 10/27/16 04:45 Hgb 9.5 gm/dL (12.6-17.4) L 10/27/16 04:45 Hct 28.2 % (39.0-49.0) L 10/27/16 04:45 MCV 85.7 fl (80-99) 10/27/16 04:45 MCH 29.0 pg (27.0-31.0) 10/27/16 04:45 MCHC Differential 33.8 pg (28.0-36.0) 10/27/16 04:45 RDW 14.6 % (11.5-20.0) 10/27/16 04:45 Plt Count 315 Th/cmm (150-400) 10/27/16 04:45 MPV 7.8 fl 10/27/16 04:45 Neutrophils % 75.0 % (40.0-80.0) 10/23/16 07:00 Band Neutrophils % 5 % (0-10) 10/27/16 04:45 Lymphocytes % 13.5 % (20.0-50.0) L 10/23/16 07:00 Monocytes % 7.3 % (2.0-10.0) 10/23/16 07:00 Eosinophils % 3.2 % (0.0-5.0) 10/23/16 07:00 Basophils % 1.0 % (0.0-2.0) 10/23/16 07:00 Neutrophils (Manual) 82 % (40-80) H 10/27/16 04:45 Lymphocytes 11 % (20-50) L 10/27/16 04:45 Monocytes 2 % (2-10) 10/27/16 04:45 Platelet Estimate ADEQUATE (NORMAL) 10/27/16 04:45 Platelet Morphology NORMAL (NORMAL) 10/27/16 04:45 RBC Morph Micro Appear NORMAL (NORMAL) 10/27/16 04:45 PT 10.6 SECONDS (9.5-11.5) 10/25/16 09:15 INR 1.02 (0.5-1.4) 10/25/16 09:15 PTT (Actin FS) 27.0 SECONDS (26.0-38.0) 10/17/16 15:45 Specimen Source Arterial 10/23/16 08:50 Sample Site Left Radial 10/23/16 08:50 pH 7.42 (7.35-7.45) 10/23/16 08:50 pCO2 45.0 mmHg (35.0-45.0) 10/23/16 08:50 pO2 81.0 mmHg (80.0-100.0) 10/23/16 08:50 HCO3 28.1 mEq/L (20.0-26.0) H 10/23/16 08:50 Base Excess 4.1 mEq/L (-3.0-3.0) H 10/23/16 08:50 O2 Saturation 96.0 % (92.0-100.0) 10/23/16 08:50 Praveen Test Positive 10/23/16 08:50 Vent Rate NA 10/23/16 08:50 Inspired O2 32 10/23/16 08:50 Tidal Volume NA 10/23/16 08:50 PEEP NA 10/23/16 08:50 Pressure (ins/psv/peep) NA 10/23/16 08:50 Critical Value ACELIS 10/23/16 08:50 Sodium 141 mEq/L (136-145) 10/27/16 04:45 Potassium 3.8 mEq/L (3.5-5.1) 10/27/16 04:45 Chloride 110 mEq/L (98-107) H 10/27/16 04:45 Carbon Dioxide 27.8 mEq/L (21.0-31.0) 10/27/16 04:45 Anion Gap 7.0 (7.0-16.0) 10/27/16 04:45 BUN 23 mg/dL (7-25) 10/27/16 04:45 Creatinine 0.5 mg/dL (0.7-1.3) L 10/27/16 04:45 Est GFR ( Amer) TNP 10/27/16 04:45 Est GFR (Non-Af Amer) TNP 10/27/16 04:45 BUN/Creatinine Ratio 46.0 10/27/16 04:45 Glucose 198 mg/dL (70-105) H 10/27/16 04:45 POC Glucose 96 MG/DL (70 - 105) 10/19/16 21:03 Hemoglobin A1c % 5.4 % (4.0-6.0) 10/25/16 09:15 Whole Bld Lactic Acid 1.17 mmol/L (0.60-1.99) 10/17/16 06:10 Calcium 8.5 mg/dL (8.6-10.3) L 10/27/16 04:45 Phosphorus 2.5 mg/dL (2.5-5.0) 10/18/16 07:07 Magnesium 2.2 mg/dL (1.9-2.7) 10/26/16 06:16 Total Bilirubin 0.2 mg/dL (0.3-1.0) L 10/27/16 04:45 AST 12 U/L (13-39) L 10/27/16 04:45 ALT 14 U/L (7-52) 10/27/16 04:45 Alkaline Phosphatase 42 U/L (34-104) 10/27/16 04:45 Ammonia 36 umol/L (16-53) 10/19/16 05:00 Troponin I 0.02 ng/mL (0.01-0.05) 10/16/16 23:29 B-Natriuretic Peptide 93.1 pg/mL (5.0-100.0) 10/23/16 07:00 Total Protein 4.7 gm/dL (6.0-8.3) L 10/27/16 04:45 Albumin 2.5 gm/dL (4.2-5.5) L 10/27/16 04:45 Globulin 2.2 gm/dL 10/27/16 04:45 Albumin/Globulin Ratio 1.1 (1.0-1.8) 10/27/16 04:45 Prostate Specific Ag 11.0 ng/mL (0.0-4.0) H 10/25/16 09:15 Vitamin B12 476 pg/mL (211-946) 10/17/16 06:10 Folic Acid >20.0 ng/mL (>3.0) 10/17/16 06:10 TSH 0.47 uIU/ml (0.34-5.60) 10/17/16 06:10 Testosterone Level 453 10/25/16 09:15 Testosterone Comment 10/25/16 09:15 Urine Source [place] 10/17/16 13:35 Urine Color YELLOW 10/17/16 13:35 Urine Clarity SLIGHT HAZY (CLEAR) 10/17/16 13:35 Urine pH 5.0 10/17/16 13:35 Ur Specific [place] 1.025 (1.005-1.030) 10/17/16 13:35 Urine Protein 30 mg/dL (NEGATIVE) H 10/17/16 13:35 Urine Glucose (UA) NEGATIVE mg/dL (NEGATIVE) 10/17/16 13:35 Urine Ketones NEGATIVE mg/dL (NEGATIVE) 10/17/16 13:35 Urine Blood NEGATIVE (NEGATIVE) 10/17/16 13:35 Urine Nitrate NEGATIVE (NEGATIVE) 10/17/16 13:35 Urine Bilirubin NEGATIVE (NEGATIVE) 10/17/16 13:35 Urine Urobilinogen 0.2 E.U./dL (0.2 - 1.0) 10/17/16 13:35 Ur Leukocyte Esterase NEGATIVE (NEGATIVE) 10/17/16 13:35 Urine RBC 0-1 /hpf (0-5) 10/17/16 13:35 Urine WBC 0-2 /hpf (0-5) 10/17/16 13:35 Ur Epithelial Cells OCCASIONAL /lpf (FEW) 10/17/16 13:35 Amorphous Sediment MODERATE URATES (NONE SEEN) 10/17/16 13:35 Urine Bacteria 1+ /hpf (NONE SEEN) H 10/17/16 13:35 Vancomycin Trough 17.9 ug/mL (10-20) 10/25/16 09:15 Carbamazepine < 2.0 ug/ml (4.0-12.0) L 10/16/16 23:29 - Physical Exam Vitals and I&O: Vital Signs Temp 97.5 F 10/27/16 08:00 Pulse 66 10/27/16 11:19 Resp 19 10/27/16 12:00 BP 141/67 10/27/16 08:00 Pulse Ox 98 10/27/16 11:19 Intake & Output 10/26/16 10/27/16 10/27/16 18:59 06:59 18:59 Intake Total 1755 1180 1250 Output Total 450 700 Balance 7447 536 7785 Intake: Intake, IV Amount 8496 335 0146 Cefepime 1 gm In Dextrose 50 50 5% 50 ml @ 100 mls/hr IV Q12H [facility] Rx#:[id number] D5-0.45NS 1,000 ml @ 50 875 1000 mls/hr IV .Q20H [facility] Rx#: [id number] Vancomycin HCl 1.25 gm In 250 250 250 Sodium Chloride 0.9% 250 ml @ 165 mls/hr IV Q12H [facility] Rx#:[id number] Oral 0 Tube Feeding 480 480 Other 100 400 Output: Urine 450 700 Other: # Bowel Movements 0 1 Stool Characteristics Soft Formed Brown Active Medications: Current Medications Acetaminophen (Tylenol) 650 mg PO Q4HR PRN PRN Reason: Pain or Fever >101 Stop: 12/16/16 00:48 Last Admin: 10/19/16 05:52 Dose: 650 mg Albuterol Sulfate (Albuterol 2.5mg/3ml Neb Ud) 2.5 mg HHN QIDRT [facility] Stop: 12/16/16 06:59 Last Admin: 10/27/16 11:15 Dose: 2.5 mg Amiodarone HCl (Cordarone) 200 mg PO DAILY [facility] Stop: 12/16/16 08:59 Last Admin: 10/27/16 08:22 Dose: Not Given Atorvastatin Calcium (Lipitor) 10 mg PO HS [facility] PRN Reason: Protocol Stop: 12/16/16 20:59 Last Admin: 10/26/16 21:35 Dose: 10 mg Bisacodyl (Dulcolax 10 Mg Supp) 10 mg RC Q72H PRN PRN Reason: Constipation Stop: 12/16/16 00:45 Budesonide (Pulmicort) 0.5 mg HHN BIDRT [facility] Stop: 12/16/16 18:59 Last Admin: 10/27/16 07:31 Dose: 0.5 mg Clonidine HCl (Catapres) 0.1 mg PO Q6HR PRN PRN Reason: SBP GREATER THAN 160 Stop: 12/22/16 20:08 Dexamethasone Sodium Phosphate (Decadron) 4 mg IVP Q6HR [facility] Stop: 12/24/16 17:59 Last Admin: 10/27/16 12:52 Dose: 4 mg Donepezil HCl (Aricept) 10 mg PO HS [facility] Stop: 12/16/16 20:59 Last Admin: 10/26/16 21:35 Dose: 10 mg Enalaprilat (Vasotec) 1.25 mg IVP Q6HR PRN PRN Reason: SBP ABOVE 160 Stop: 12/23/16 00:00 Last Admin: 10/23/16 22:21 Dose: 1.25 mg Guaifenesin (Robitussin) 200 mg PO Q4HR PRN PRN Reason: Cough or Congestion Stop: 12/16/16 00:48 Heparin Sodium (Porcine) (Heparin) 5,000 units SUBQ Q12HR [facility] Stop: 12/16/16 08:59 Last Admin: 10/27/16 08:22 Dose: 5,000 units Cefepime HCl 1 gm/ Dextrose 50 mls @ 100 mls/hr IV Q12H [facility] Stop: 12/16/16 00:59 Last Admin: 10/27/16 12:52 Dose: 100 mls/hr Vancomycin HCl 1.25 gm/ Sodium (Chloride) 250 mls @ 165 mls/hr IV Q12H [facility] Stop: 12/16/16 09:59 Last Infusion: 10/27/16 11:00 Dose: Infused Dextrose/Sodium Chloride (D5-0.45ns) 1,000 mls @ 50 mls/hr IV .Q20H [facility] Stop: 12/17/16 13:27 Last Admin: 10/27/16 13:01 Dose: 50 mls/hr Ipratropium [place] (Atrovent Neb 0.5mg/2.5ml) 0.5 mg HHN QIDRT [facility] Stop: 12/16/16 06:59 Last Admin: 10/27/16 11:15 Dose: 0.5 mg Lactobacillus Rhamnosus (Culturelle) 1 each PO DAILY [facility] Stop: 12/17/16 08:59 Last Admin: 10/27/16 08:23 Dose: 1 each Lorazepam (Ativan) 1 mg IV Q4HR PRN; Protocol PRN Reason: Seizure Stop: 12/16/16 00:48 Last Admin: 10/18/16 02:25 Dose: 1 mg Magnesium Hydroxide (Milk Of Magnesia) 30 ml PO HS PRN PRN Reason: Constipation Stop: 12/16/16 00:45 Miscellaneous (Vancomycin Iv Per Pharmacy) 1 ea PRN [facility] Stop: 12/16/16 00:59 Miscellaneous (Probiotic Screen) 1 ea PRN PRN PRN Reason: PROTOCOL Stop: 12/16/16 16:45 Montelukast Sodium (Singulair) 10 mg PO HS [facility] Stop: 12/16/16 20:59 Last Admin: 10/26/16 21:35 Dose: 10 mg Ondansetron HCl (Zofran) 4 mg IV Q8H PRN PRN Reason: Nausea / Vomiting Stop: 12/16/16 00:48 Pantoprazole Sodium (Protonix) 40 mg PO BID [facility] Stop: 12/16/16 10:29 Last Admin: 10/27/16 08:22 Dose: 40 mg Scopolamine (Transderm Scop Patch) 1 patch TD Q72H [facility] Stop: 12/22/16 12:59 Sodium Phosphate (Fleet Enema) 135 ml RC PRN PRN PRN Reason: Constipation Stop: 12/16/16 00:45 Tamsulosin HCl (Flomax) 0.4 mg PO HS [facility] Stop: 12/16/16 20:59 Last Admin: 10/26/16 21:35 Dose: 0.4 mg General: demented HEENT: NC/AT, PERRLA Neck: Supple, No JVD Lungs: congested, rales Cardiovascular: RRR, Normal S1, Normal S2 Abdomen: soft non-tender, globular, positive bowel sound Extremities: excoriation Neurological: no change - Procedures Procedures: Procedures Procedure Code Date ASSISTANCE WITH RESPIRATORY VENTILATION, <24 HRS, CPAP [id number] 06/29/16 EXCISION OF DUODENUM, ENDO, DIAGN [id number] 07/18/16 EXCISION OF ESOPHAGUS, ENDO, DIAGN [id number] 07/18/16 EXCISION OF STOMACH, ENDO, DIAGN [id number] 07/18/16 INSERT EMERGENCY AIRWAY [id number] 10/17/16 POS AIRWAY PRESSURE CPAP [id number] 06/29/16 RESPIRATORY VENTILATION, GREATER THAN 96 CONSECUTIVE HOURS [id number] 10/17/16 VENT MGMT INPAT INIT DAY 97705 10/17/16 VENT MGMT INPAT SUBQ DAY 81566 10/17/16 Internal Medicine Assmt/Plan - Assessment Assessment: dysphagia pnm arf copd gerd leukocytosis bacteremeia mrsa nares chf pleural effusion left ho melanoma - Plan Plan: cotn on iv abx on vanco and maxi\pime vent support will try to wean off icu protocol dw rn will refer to card may do paracentesis will refer to dr esteves Nutritional Asmnt/Malnutr-PDOC - Dietary Evaluation Malnutrition Findings (Please click <Entered> for more info): Nutritional Asmnt/Malnutrition Start: 10/18/16 09: 33 Text: Status: Complete Freq: Document 10/18/16 09:33 GSUN (Rec: 10/18/16 09:38 GSUN [email or web address]) Nutritional Asmnt/Malnutrition Patient General Information Nutritional Screening Consult Diagnosis Acute respiratory failure, PNA , mild PCM, leukocytosis Pertinent Medical Hx/Surgical Hx Coronary artery disease, COPD, GERD, dementia, 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 RD consult for Ruddy Gross12. Pt with hx of resp failure, intubated in ER and transfered to ICU. Nutren Pulmonary at 20ml/hr. Discussed increasing rate to 30ml/hr with Prosource BID with RN. 30ml/hr to provide 720ml total, 1080kcal, 49g protein. Current Diet Order/ Nutrition Support Nutren Pulmonary 20ml/hr, providing 480ml total, 720kcal , 33g protein Pertinent Medications Lipitor, Dulcolax, D5, Culturelle, MOM, Vancomycin, Zofran, Protonix, Fleet Enema Pertinent Labs 10/18: glucose 111H Nutritional Hx/Data Height 1.73 m Height (Calculated Centimeters) 172.7 Current Weight (lbs) 81.647 kg Weight (Calculated Kilograms) 81.6 Weight (Calculated Grams) 72631.6 Usual body Weight (lbs) 160 [place] Body Weight 154 Weight Status Overweight GI Symptoms Skin Integrity/Comment: Ruddy 12. RN notes: buttock small stage 2 decubitus ulcer. Estimated Nutritional Goals Calories/Kcals/Kg IBW 154lb/70kg Kcals Calculated 1750-2100kcal (25-30kcal/kg) Protein g/kg: IBW Protein Calculated 84-140g (1.2-2g/kg) Fluid: ml 1750-2100ml (1ml/kcal) Nutritional Problem 1. Problem Problem Difficulty chewing/swallowing related to Etiology respiratory distress aeb Signs/Symptoms: intubated, og tube feeding Intervention/Recommendation Comments 1. Recommend increasing Nutren Pulmonary from 20ml/hr to 30ml/hrs, providing to meet 62 % of lower end of estimated kcal needs. RD to closely monitor, recommend to increase rate to meet at least 100% of estimated kcal needs once pt is medically stable on vent. 2. Recommend Prosource BID to meet 100% of estimated prot needs to prevent muscle wasting. Expected Outcomes/Goals Expected Outcomes/Goals Pt to meet at least 60% of estimated kcal and 100% of estimated prot needs with tolerance while newly intubated.
[2016-10-27] MEDS: Atorvastatin Calcium 10 MG TAB PO SCH (20:57)
[2016-10-28] MEDS: Dexamethasone Sodium Phos 4 mg/mL Vial IVP SCH ×4 (00:14→17:52)
[2016-10-28] MEDS: Budesonide 0.5 Mg/2 mL Ud HHN SCH ×2 (07:38→18:49)
[2016-10-28] MEDS: Ipratropium Neb 0.5 mg/2.5 mL UD HHN SCH ×4 (07:38→18:49)
[2016-10-28] MEDS: Albuterol Nebulizer 2.5mg/3mL HHN SCH ×4 (07:38→18:49)
[2016-10-28] MEDS: Lactobacillus Rhamnosus 10 Billion CFU Capsule PO SCH (08:59)
[2016-10-28] MEDS: Pantoprazole 40 mg/Packet PO SCH ×2 (08:59→16:42)
--- NOTE | 2016-10-28 10:26 | Diagnostic Imaging Report ---
Portable chest x-ray HISTORY: Shortness of breath Compared with the prior exam of 10/25/2016, there has developed complete opacification of the left hemithorax suggesting a large pleural effusion. Underlying atelectasis/collapse involving the left lung cannot be excluded. Obscuration of the left heart margin. IMPRESSION: 1. Interval development of complete opacification of left hemithorax since 10/25/2016. The findings suggest a large pleural effusion. Underlying atelectasis/collapse cannot be excluded. Abnormal findings were reported to the radiology department for communication to the floor October 28, 2016 pelvis 10:25 AM)
[2016-10-28] MEDS ORDERED: IOHEXOL 300MG/ML 100 ML VIAL PO ONE (10:30)
--- NOTE | 2016-10-28 13:53 | Internal Medicine Prog Note ---
Internal Medicine Subjective - Subjective Patient seen and examined:: with staff, chart reviewed Patient is:: awake, verbal, interactive Patient Complaints of:: congestion Per staff patient is:: no adverse event, no episodes of fall, confused Internal Medicine Objective - Results Result Diagrams: 10/27/16 04:45 10/28/16 09:00 Recent Labs: Laboratory Last Values WBC 9.8 Th/cmm (4.8-10.8) D 10/27/16 04:45 RBC 3.29 Mil/cmm (3.80-5.80) L 10/27/16 04:45 Hgb 9.5 gm/dL (12.6-17.4) L 10/27/16 04:45 Hct 28.2 % (39.0-49.0) L 10/27/16 04:45 MCV 85.7 fl (80-99) 10/27/16 04:45 MCH 29.0 pg (27.0-31.0) 10/27/16 04:45 MCHC Differential 33.8 pg (28.0-36.0) 10/27/16 04:45 RDW 14.6 % (11.5-20.0) 10/27/16 04:45 Plt Count 315 Th/cmm (150-400) 10/27/16 04:45 MPV 7.8 fl 10/27/16 04:45 Neutrophils % 75.0 % (40.0-80.0) 10/23/16 07:00 Band Neutrophils % 5 % (0-10) 10/27/16 04:45 Lymphocytes % 13.5 % (20.0-50.0) L 10/23/16 07:00 Monocytes % 7.3 % (2.0-10.0) 10/23/16 07:00 Eosinophils % 3.2 % (0.0-5.0) 10/23/16 07:00 Basophils % 1.0 % (0.0-2.0) 10/23/16 07:00 Neutrophils (Manual) 82 % (40-80) H 10/27/16 04:45 Lymphocytes 11 % (20-50) L 10/27/16 04:45 Monocytes 2 % (2-10) 10/27/16 04:45 Platelet Estimate ADEQUATE (NORMAL) 10/27/16 04:45 Platelet Morphology NORMAL (NORMAL) 10/27/16 04:45 RBC Morph Micro Appear NORMAL (NORMAL) 10/27/16 04:45 PT 10.6 SECONDS (9.5-11.5) 10/25/16 09:15 INR 1.02 (0.5-1.4) 10/25/16 09:15 PTT (Actin FS) 27.0 SECONDS (26.0-38.0) 10/17/16 15:45 Specimen Source Arterial 10/23/16 08:50 Sample Site Left Radial 10/23/16 08:50 pH 7.42 (7.35-7.45) 10/23/16 08:50 pCO2 45.0 mmHg (35.0-45.0) 10/23/16 08:50 pO2 81.0 mmHg (80.0-100.0) 10/23/16 08:50 HCO3 28.1 mEq/L (20.0-26.0) H 10/23/16 08:50 Base Excess 4.1 mEq/L (-3.0-3.0) H 10/23/16 08:50 O2 Saturation 96.0 % (92.0-100.0) 10/23/16 08:50 Praveen Test Positive 10/23/16 08:50 Vent Rate NA 10/23/16 08:50 Inspired O2 32 10/23/16 08:50 Tidal Volume NA 10/23/16 08:50 PEEP NA 10/23/16 08:50 Pressure (ins/psv/peep) NA 10/23/16 08:50 Critical Value ACELIS 10/23/16 08:50 Sodium 141 mEq/L (136-145) 10/27/16 04:45 Potassium 3.8 mEq/L (3.5-5.1) 10/27/16 04:45 Chloride 110 mEq/L (98-107) H 10/27/16 04:45 Carbon Dioxide 27.8 mEq/L (21.0-31.0) 10/27/16 04:45 Anion Gap 7.0 (7.0-16.0) 10/27/16 04:45 BUN 13 mg/dL (7-25) 10/28/16 09:00 Creatinine 0.5 mg/dL (0.7-1.3) L 10/28/16 09:00 Est GFR ( Amer) TNP 10/27/16 04:45 Est GFR (Non-Af Amer) TNP 10/27/16 04:45 BUN/Creatinine Ratio 46.0 10/27/16 04:45 Glucose 198 mg/dL (70-105) H 10/27/16 04:45 POC Glucose 96 MG/DL (70 - 105) 10/19/16 21:03 Hemoglobin A1c % 5.4 % (4.0-6.0) 10/25/16 09:15 Whole Bld Lactic Acid 1.17 mmol/L (0.60-1.99) 10/17/16 06:10 Calcium 8.5 mg/dL (8.6-10.3) L 10/27/16 04:45 Phosphorus 2.5 mg/dL (2.5-5.0) 10/18/16 07:07 Magnesium 2.2 mg/dL (1.9-2.7) 10/26/16 06:16 Total Bilirubin 0.2 mg/dL (0.3-1.0) L 10/27/16 04:45 AST 12 U/L (13-39) L 10/27/16 04:45 ALT 14 U/L (7-52) 10/27/16 04:45 Alkaline Phosphatase 42 U/L (34-104) 10/27/16 04:45 Ammonia 36 umol/L (16-53) 10/19/16 05:00 Troponin I 0.02 ng/mL (0.01-0.05) 10/16/16 23:29 B-Natriuretic Peptide 93.1 pg/mL (5.0-100.0) 10/23/16 07:00 Total Protein 4.7 gm/dL (6.0-8.3) L 10/27/16 04:45 Albumin 2.5 gm/dL (4.2-5.5) L 10/27/16 04:45 Globulin 2.2 gm/dL 10/27/16 04:45 Albumin/Globulin Ratio 1.1 (1.0-1.8) 10/27/16 04:45 Prostate Specific Ag 11.0 ng/mL (0.0-4.0) H 10/25/16 09:15 Vitamin B12 476 pg/mL (211-946) 10/17/16 06:10 Folic Acid >20.0 ng/mL (>3.0) 10/17/16 06:10 TSH 0.47 uIU/ml (0.34-5.60) 10/17/16 06:10 Testosterone Level 453 10/25/16 09:15 Testosterone Comment 10/25/16 09:15 Urine Source [place] 10/17/16 13:35 Urine Color YELLOW 10/17/16 13:35 Urine Clarity SLIGHT HAZY (CLEAR) 10/17/16 13:35 Urine pH 5.0 10/17/16 13:35 Ur Specific [place] 1.025 (1.005-1.030) 10/17/16 13:35 Urine Protein 30 mg/dL (NEGATIVE) H 10/17/16 13:35 Urine Glucose (UA) NEGATIVE mg/dL (NEGATIVE) 10/17/16 13:35 Urine Ketones NEGATIVE mg/dL (NEGATIVE) 10/17/16 13:35 Urine Blood NEGATIVE (NEGATIVE) 10/17/16 13:35 Urine Nitrate NEGATIVE (NEGATIVE) 10/17/16 13:35 Urine Bilirubin NEGATIVE (NEGATIVE) 10/17/16 13:35 Urine Urobilinogen 0.2 E.U./dL (0.2 - 1.0) 10/17/16 13:35 Ur Leukocyte Esterase NEGATIVE (NEGATIVE) 10/17/16 13:35 Urine RBC 0-1 /hpf (0-5) 10/17/16 13:35 Urine WBC 0-2 /hpf (0-5) 10/17/16 13:35 Ur Epithelial Cells OCCASIONAL /lpf (FEW) 10/17/16 13:35 Amorphous Sediment MODERATE URATES (NONE SEEN) 10/17/16 13:35 Urine Bacteria 1+ /hpf (NONE SEEN) H 10/17/16 13:35 Vancomycin Trough 11.5 ug/mL (10-20) 10/28/16 09:00 Carbamazepine < 2.0 ug/ml (4.0-12.0) L 10/16/16 23:29 - Physical Exam Vitals and I&O: Vital Signs Temp 97.8 F 10/28/16 05:00 Pulse 66 10/28/16 11:11 Resp 19 10/28/16 11:11 BP 154/76 10/28/16 09:00 Pulse Ox 98 10/28/16 11:11 Intake & Output 10/27/16 10/28/16 10/28/16 18:59 06:59 18:59 Intake Total 2020 550 0 Output Total 400 600 Balance 1620 -50 0 Intake: Intake, IV Amount 1300 300 Cefepime 1 gm In Dextrose 50 50 5% 50 ml @ 100 mls/hr IV Q12H [facility] Rx#:[id number] D5-0.45NS 1,000 ml @ 50 1000 mls/hr IV .Q20H [facility] Rx#: [id number] Vancomycin HCl 1.25 gm In 250 250 Sodium Chloride 0.9% 250 ml @ 165 mls/hr IV Q12H [facility] Rx#:[id number] Oral 0 0 Tube Feeding 600 250 Other 120 Output: Urine 400 600 Other: # Bowel Movements 2 2 Stool Characteristics Soft Soft Formed Formed Brown Brown Active Medications: Current Medications Acetaminophen (Tylenol) 650 mg PO Q4HR PRN PRN Reason: Pain or Fever >101 Stop: 12/16/16 00:48 Last Admin: 10/19/16 05:52 Dose: 650 mg Albuterol Sulfate (Albuterol 2.5mg/3ml Neb Ud) 2.5 mg HHN QIDRT [facility] Stop: 12/16/16 06:59 Last Admin: 10/28/16 11:11 Dose: 2.5 mg Amiodarone HCl (Cordarone) 200 mg PO DAILY [facility] Stop: 12/16/16 08:59 Last Admin: 10/28/16 08:59 Dose: 200 mg Atorvastatin Calcium (Lipitor) 10 mg PO HS [facility] PRN Reason: Protocol Stop: 12/16/16 20:59 Last Admin: 10/27/16 20:57 Dose: 10 mg Bisacodyl (Dulcolax 10 Mg Supp) 10 mg RC Q72H PRN PRN Reason: Constipation Stop: 12/16/16 00:45 Budesonide (Pulmicort) 0.5 mg HHN BIDRT [facility] Stop: 12/16/16 18:59 Last Admin: 10/28/16 07:38 Dose: 0.5 mg Clonidine HCl (Catapres) 0.1 mg PO Q6HR PRN PRN Reason: SBP GREATER THAN 160 Stop: 12/22/16 20:08 Dexamethasone Sodium Phosphate (Decadron) 4 mg IVP Q6HR [facility] Stop: 12/24/16 17:59 Last Admin: 10/28/16 12:18 Dose: 4 mg Donepezil HCl (Aricept) 10 mg PO HS [facility] Stop: 12/16/16 20:59 Last Admin: 10/27/16 20:57 Dose: 10 mg Enalaprilat (Vasotec) 1.25 mg IVP Q6HR PRN PRN Reason: SBP ABOVE 160 Stop: 12/23/16 00:00 Last Admin: 10/23/16 22:21 Dose: 1.25 mg Guaifenesin (Robitussin) 200 mg PO Q4HR PRN PRN Reason: Cough or Congestion Stop: 12/16/16 00:48 Heparin Sodium (Porcine) (Heparin) 5,000 units SUBQ Q12HR [facility] Stop: 12/16/16 08:59 Last Admin: 10/28/16 08:59 Dose: 5,000 units Cefepime HCl 1 gm/ Dextrose 50 mls @ 100 mls/hr IV Q12H [facility] Stop: 12/16/16 00:59 Last Admin: 10/28/16 12:20 Dose: 50 mls/hr Vancomycin HCl 1.25 gm/ Sodium (Chloride) 250 mls @ 165 mls/hr IV Q12H [facility] Stop: 12/16/16 09:59 Last Admin: 10/28/16 10:52 Dose: 165 mls/hr Dextrose/Sodium Chloride (D5-0.45ns) 1,000 mls @ 50 mls/hr IV .Q20H [facility] Stop: 12/17/16 13:27 Last Admin: 10/27/16 13:01 Dose: 50 mls/hr Ipratropium [place] (Atrovent Neb 0.5mg/2.5ml) 0.5 mg HHN QIDRT [facility] Stop: 12/16/16 06:59 Last Admin: 10/28/16 11:11 Dose: 0.5 mg Lactobacillus Rhamnosus (Culturelle) 1 each PO DAILY [facility] Stop: 12/17/16 08:59 Last Admin: 10/28/16 08:59 Dose: 1 each Lorazepam (Ativan) 1 mg IV Q4HR PRN; Protocol PRN Reason: Seizure Stop: 12/16/16 00:48 Last Admin: 10/18/16 02:25 Dose: 1 mg Magnesium Hydroxide (Milk Of Magnesia) 30 ml PO HS PRN PRN Reason: Constipation Stop: 12/16/16 00:45 Miscellaneous (Vancomycin Iv Per Pharmacy) 1 ea PRN [facility] Stop: 12/16/16 00:59 Miscellaneous (Probiotic Screen) 1 ea PRN PRN PRN Reason: PROTOCOL Stop: 12/16/16 16:45 Montelukast Sodium (Singulair) 10 mg PO HS [facility] Stop: 12/16/16 20:59 Last Admin: 10/27/16 20:56 Dose: 10 mg Ondansetron HCl (Zofran) 4 mg IV Q8H PRN PRN Reason: Nausea / Vomiting Stop: 12/16/16 00:48 Pantoprazole Sodium (Protonix) 40 mg PO BID [facility] Stop: 12/16/16 10:29 Last Admin: 10/28/16 08:59 Dose: 40 mg Scopolamine (Transderm Scop Patch) 1 patch TD Q72H [facility] Stop: 12/22/16 12:59 Sodium Phosphate (Fleet Enema) 135 ml RC PRN PRN PRN Reason: Constipation Stop: 12/16/16 00:45 Tamsulosin HCl (Flomax) 0.4 mg PO HS [facility] Stop: 12/16/16 20:59 Last Admin: 10/27/16 20:56 Dose: 0.4 mg General: demented HEENT: NC/AT, PERRLA Neck: Supple, No JVD Lungs: congested, wheezing, rales Cardiovascular: RRR, Normal S1, Normal S2 Abdomen: soft non-tender, globular, +GT Extremities: excoriation, contracture Neurological: lethargic, disorganized - Procedures Procedures: Procedures Procedure Code Date ASSISTANCE WITH RESPIRATORY VENTILATION, <24 HRS, CPAP [id number] 06/29/16 EXCISION OF DUODENUM, ENDO, DIAGN [id number] 07/18/16 EXCISION OF ESOPHAGUS, ENDO, DIAGN [id number] 07/18/16 EXCISION OF STOMACH, ENDO, DIAGN [id number] 07/18/16 INSERT EMERGENCY AIRWAY [id number] 10/17/16 POS AIRWAY PRESSURE CPAP 38612 06/29/16 RESPIRATORY VENTILATION, GREATER THAN 96 CONSECUTIVE HOURS [id number] 10/17/16 VENT MGMT INPAT INIT DAY 88783 10/17/16 VENT MGMT INPAT SUBQ DAY 74426 04/13/17 Internal Medicine Assmt/Plan - Assessment Assessment: dysphagia pnm arf copd gerd leukocytosis bacteremeia mrsa nares chf pleural effusion ho melanoma - Plan Plan: cotn on iv abx on vanco and maxi\pime vent support will try to wean off icu protocol dw rn will refer to card may do thoracentesis will refer to dr esteves Nutritional Asmnt/Malnutr-PDOC - Dietary Evaluation Malnutrition Findings (Please click <Entered> for more info): Nutritional Asmnt/Malnutrition Start: 10/18/16 09: 33 Text: Status: Complete Freq: Document 10/18/16 09:33 GSUN (Rec: 10/18/16 09:38 GSUN [email or web address]) Nutritional Asmnt/Malnutrition Patient General Information Nutritional Screening Consult Diagnosis Acute respiratory failure, PNA , mild PCM, leukocytosis Pertinent Medical Hx/Surgical Hx Coronary artery disease, COPD, GERD, dementia, 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 RD consult for Ruddy Gross12. Pt with hx of resp failure, intubated in ER and transfered to ICU. Nutren Pulmonary at 20ml/hr. Discussed increasing rate to 30ml/hr with Prosource BID with RN. 30ml/hr to provide 720ml total, 1080kcal, 49g protein. Current Diet Order/ Nutrition Support Nutren Pulmonary 20ml/hr, providing 480ml total, 720kcal , 33g protein Pertinent Medications Lipitor, Dulcolax, D5, Culturelle, MOM, Vancomycin, Zofran, Protonix, Fleet Enema Pertinent Labs 10/18: glucose 111H Nutritional Hx/Data Height 1.73 m Height (Calculated Centimeters) 172.7 Current Weight (lbs) 81.647 kg Weight (Calculated Kilograms) 81.6 Weight (Calculated Grams) 63299.6 Usual body Weight (lbs) 160 [place] Body Weight 154 Weight Status Overweight GI Symptoms Skin Integrity/Comment: Ruddy Guadarrama. RN notes: buttock small stage 2 decubitus ulcer. Estimated Nutritional Goals Calories/Kcals/Kg IBW 154lb/70kg Kcals Calculated 1750-2100kcal (25-30kcal/kg) Protein g/kg: IBW Protein Calculated 84-140g (1.2-2g/kg) Fluid: ml 1750-2100ml (1ml/kcal) Nutritional Problem 1. Problem Problem Difficulty chewing/swallowing related to Etiology respiratory distress aeb Signs/Symptoms: intubated, og tube feeding Intervention/Recommendation Comments 1. Recommend increasing Nutren Pulmonary from 20ml/hr to 30ml/hrs, providing to meet 62 % of lower end of estimated kcal needs. RD to closely monitor, recommend to increase rate to meet at least 100% of estimated kcal needs once pt is medically stable on vent. 2. Recommend Prosource BID to meet 100% of estimated prot needs to prevent muscle wasting. Expected Outcomes/Goals Expected Outcomes/Goals Pt to meet at least 60% of estimated kcal and 100% of estimated prot needs with tolerance while newly intubated.
--- NOTE | 2016-10-28 14:57 | Diagnostic Imaging Report ---
CT scan abdomen and pelvis with and without intravenous contrast HISTORY: Neoplasm, malignancy Total DLP equals 1042 CTDI equals 21.0 Axial sections were obtained from the xiphoid process down to the pubic symphysis before and after administration of intravenous contrast. Exam is compared with a prior study of 06/30/2016. Limited sections through the lower chest demonstrate cardiomegaly. Small bilateral pleural effusions are seen. The liver exhibits a homogeneous parenchyma. No focal lesions. The spleen appears normal. No focal abnormality seen within the pancreas. Gastrostomy tube is seen. The gallbladder and previously reported gallstones cannot be appreciated on today's exam. Small bilateral renal cysts are seen. No hydronephrosis. Atherosclerotic calcification seen in the aorta. The exam of the pelvis demonstrates a mildly distended stool-filled rectum. Preservation of normal fat planes. No abnormal masses or abnormal fluid collections. A Cormier catheter is seen within a contracted urinary bladder. There is an enlarged prostate gland. Degenerative changes noted throughout the spine. IMPRESSION: 1. No significant change since the prior exam of 06/30/2016. 2. No abnormal masses or abnormal fluid collections 3. Mildly distended stool-filled rectum 4. Prostatic enlargement 5. Atherosclerotic vascular changes 6. Degenerative changes throughout the spine
[2016-10-28] MEDS: D5-0.45NS 1,000 ML IV SCH (16:43)
[2016-10-28] MEDS: Atorvastatin Calcium 10 MG TAB PO SCH (20:49)
[2016-10-29] MEDS: Dexamethasone Sodium Phos 4 mg/mL Vial IVP SCH ×5 (00:35→23:30)
[2016-10-29] MEDS: Albuterol Nebulizer 2.5mg/3mL HHN SCH ×4 (06:53→19:03)
[2016-10-29] MEDS: Budesonide 0.5 Mg/2 mL Ud HHN SCH ×2 (06:53→19:03)
[2016-10-29] MEDS: Ipratropium Neb 0.5 mg/2.5 mL UD HHN SCH ×4 (06:53→19:03)
[2016-10-29 07:53] LABS: HEMATOCRIT 30.2 % (39.0-49.0); HEMOGLOBIN 10.2 gm/dL (12.6-17.4); MEAN CELL VOLUME 86.1 fl (80-99); MEAN CORPUSCULAR HEMOGLOBIN 29.1 pg (27.0-31.0); MEAN CORPUSCULAR HGB CONC 33.8 pg (28.0-36.0); MEAN PLATELET VOLUME 8.4 fl; RED CELL DISTRIBUTION WIDTH 14.6 % (11.5-20.0)
[2016-10-29 07:54] LABS: ANION GAP 6.6 (7.0-16.0); BUN - UREA NITROGEN 18 mg/dL (7-25); CALCIUM SERUM 8.3 mg/dL (8.6-10.3); CARBON DIOXIDE 25.6 mEq/L (21.0-31.0); CHLORIDE 109 mEq/L (98-107); CREATININE - SERUM 0.5 mg/dL (0.7-1.3); GLUCOSE 186 mg/dL (70-105); POTASSIUM SERUM 4.2 mEq/L (3.5-5.1); SODIUM SERUM 137 mEq/L (136-145)
[2016-10-29 08:09] LABS: PLATELET COUNT 229 Th/cmm (150-400); WHITE BLOOD COUNT 12.6 Th/cmm (4.8-10.8)
[2016-10-29] MEDS: Lactobacillus Rhamnosus 10 Billion CFU Capsule PO SCH (08:32)
[2016-10-29] MEDS: Pantoprazole 40 mg/Packet PO SCH ×2 (08:32→17:24)
[2016-10-29 09:51] LABS: BAND NEUTROPHILE 5 % (0-10); METAMYELOCYTE 1 % (0-0); NEUTROPHILS 88 % (40-80); PLATELET ESTIMATE ADEQUATE (NORMAL); PLATELET MORPHOLOGY NORMAL (NORMAL); TOTAL CELLS COUNTED 100
--- NOTE | 2016-10-29 10:18 | Diagnostic Imaging Report ---
CHEST X-RAY: 2 views INDICATION: Shortness of breath COMPARISON: Chest x-ray 10/28/2016 at 8:11 AM FINDINGS: Right PICC line is stable. There is interval reexpansion of the left lung. Moderate to large left effusion is noted. Cardiomegaly is noted. IMPRESSION: Interval reexpansion of the left lung with moderate to large left effusion noted. Pneumonia of the left lung cannot be excluded.
[2016-10-29] MEDS: Vancomycin HCl 1.5 GM in Sodium Chloride 0.9% 500 ML IV SCH ×2 (11:07→21:31)
--- NOTE | 2016-10-29 13:31 | Internal Medicine Prog Note ---
Internal Medicine Subjective - Subjective Patient seen and examined:: with staff, chart reviewed Patient is:: awake, verbal, interactive Patient Complaints of:: congestion Per staff patient is:: no adverse event, no episodes of fall, confused Internal Medicine Objective - Results Result Diagrams: 10/29/16 06:25 10/29/16 06:25 Recent Labs: Laboratory Last Values WBC 12.6 Th/cmm (4.8-10.8) H D 10/29/16 06:25 RBC 3.50 Mil/cmm (3.80-5.80) L 10/29/16 06:25 Hgb 10.2 gm/dL (12.6-17.4) L 10/29/16 06:25 Hct 30.2 % (39.0-49.0) L 10/29/16 06:25 MCV 86.1 fl (80-99) 10/29/16 06:25 MCH 29.1 pg (27.0-31.0) 10/29/16 06:25 MCHC Differential 33.8 pg (28.0-36.0) 10/29/16 06:25 RDW 14.6 % (11.5-20.0) 10/29/16 06:25 Plt Count 229 Th/cmm (150-400) D 10/29/16 06:25 MPV 8.4 fl 10/29/16 06:25 Neutrophils % 75.0 % (40.0-80.0) 10/23/16 07:00 Band Neutrophils % 5 % (0-10) 10/29/16 06:25 Lymphocytes % 13.5 % (20.0-50.0) L 10/23/16 07:00 Monocytes % 7.3 % (2.0-10.0) 10/23/16 07:00 Eosinophils % 3.2 % (0.0-5.0) 10/23/16 07:00 Basophils % 1.0 % (0.0-2.0) 10/23/16 07:00 Neutrophils (Manual) 88 % (40-80) H 10/29/16 06:25 Lymphocytes 3 % (20-50) L 10/29/16 06:25 Monocytes 3 % (2-10) 10/29/16 06:25 Metamyelocytes 1 % (0-0) H 10/29/16 06:25 Platelet Estimate ADEQUATE (NORMAL) 10/29/16 06:25 Platelet Morphology NORMAL (NORMAL) 10/29/16 06:25 RBC Morph Micro Appear NORMAL (NORMAL) 10/29/16 06:25 PT 10.6 SECONDS (9.5-11.5) 10/25/16 09:15 INR 1.02 (0.5-1.4) 10/25/16 09:15 PTT (Actin FS) 27.0 SECONDS (26.0-38.0) 10/17/16 15:45 Specimen Source Arterial 10/23/16 08:50 Sample Site Left Radial 10/23/16 08:50 pH 7.42 (7.35-7.45) 10/23/16 08:50 pCO2 45.0 mmHg (35.0-45.0) 10/23/16 08:50 pO2 81.0 mmHg (80.0-100.0) 10/23/16 08:50 HCO3 28.1 mEq/L (20.0-26.0) H 10/23/16 08:50 Base Excess 4.1 mEq/L (-3.0-3.0) H 10/23/16 08:50 O2 Saturation 96.0 % (92.0-100.0) 10/23/16 08:50 Praveen Test Positive 10/23/16 08:50 Vent Rate NA 10/23/16 08:50 Inspired O2 32 10/23/16 08:50 Tidal Volume NA 10/23/16 08:50 PEEP NA 10/23/16 08:50 Pressure (ins/psv/peep) NA 10/23/16 08:50 Critical Value ACELIS 10/23/16 08:50 Sodium 137 mEq/L (136-145) 10/29/16 06:25 Potassium 4.2 mEq/L (3.5-5.1) 10/29/16 06:25 Chloride 109 mEq/L (98-107) H 10/29/16 06:25 Carbon Dioxide 25.6 mEq/L (21.0-31.0) 10/29/16 06:25 Anion Gap 6.6 (7.0-16.0) L 10/29/16 06:25 BUN 18 mg/dL (7-25) 10/29/16 06:25 Creatinine 0.5 mg/dL (0.7-1.3) L 10/29/16 06:25 Est GFR ( Amer) TNP 10/29/16 06:25 Est GFR (Non-Af Amer) TNP 10/29/16 06:25 BUN/Creatinine Ratio 36.0 10/29/16 06:25 Glucose 186 mg/dL (70-105) H 10/29/16 06:25 POC Glucose 96 MG/DL (70 - 105) 10/19/16 21:03 Hemoglobin A1c % 5.4 % (4.0-6.0) 10/25/16 09:15 Whole Bld Lactic Acid 1.17 mmol/L (0.60-1.99) 10/17/16 06:10 Calcium 8.3 mg/dL (8.6-10.3) L 10/29/16 06:25 Phosphorus 2.5 mg/dL (2.5-5.0) 10/18/16 07:07 Magnesium 2.2 mg/dL (1.9-2.7) 10/26/16 06:16 Total Bilirubin 0.2 mg/dL (0.3-1.0) L 10/27/16 04:45 AST 12 U/L (13-39) L 10/27/16 04:45 ALT 14 U/L (7-52) 10/27/16 04:45 Alkaline Phosphatase 42 U/L (34-104) 10/27/16 04:45 Ammonia 36 umol/L (16-53) 10/19/16 05:00 Troponin I 0.02 ng/mL (0.01-0.05) 10/16/16 23:29 B-Natriuretic Peptide 184.0 pg/mL (5.0-100.0) H 10/29/16 06:25 Total Protein 4.7 gm/dL (6.0-8.3) L 10/27/16 04:45 Albumin 2.5 gm/dL (4.2-5.5) L 10/27/16 04:45 Globulin 2.2 gm/dL 10/27/16 04:45 Albumin/Globulin Ratio 1.1 (1.0-1.8) 10/27/16 04:45 Prostate Specific Ag 11.0 ng/mL (0.0-4.0) H 10/25/16 09:15 Vitamin B12 476 pg/mL (211-946) 10/17/16 06:10 Folic Acid >20.0 ng/mL (>3.0) 10/17/16 06:10 TSH 0.47 uIU/ml (0.34-5.60) 10/17/16 06:10 Testosterone Level 453 10/25/16 09:15 Testosterone Comment 10/25/16 09:15 Urine Source [place] 10/17/16 13:35 Urine Color YELLOW 10/17/16 13:35 Urine Clarity SLIGHT HAZY (CLEAR) 10/17/16 13:35 Urine pH 5.0 10/17/16 13:35 Ur Specific [place] 1.025 (1.005-1.030) 10/17/16 13:35 Urine Protein 30 mg/dL (NEGATIVE) H 10/17/16 13:35 Urine Glucose (UA) NEGATIVE mg/dL (NEGATIVE) 10/17/16 13:35 Urine Ketones NEGATIVE mg/dL (NEGATIVE) 10/17/16 13:35 Urine Blood NEGATIVE (NEGATIVE) 10/17/16 13:35 Urine Nitrate NEGATIVE (NEGATIVE) 10/17/16 13:35 Urine Bilirubin NEGATIVE (NEGATIVE) 10/17/16 13:35 Urine Urobilinogen 0.2 E.U./dL (0.2 - 1.0) 10/17/16 13:35 Ur Leukocyte Esterase NEGATIVE (NEGATIVE) 10/17/16 13:35 Urine RBC 0-1 /hpf (0-5) 10/17/16 13:35 Urine WBC 0-2 /hpf (0-5) 10/17/16 13:35 Ur Epithelial Cells OCCASIONAL /lpf (FEW) 10/17/16 13:35 Amorphous Sediment MODERATE URATES (NONE SEEN) 10/17/16 13:35 Urine Bacteria 1+ /hpf (NONE SEEN) H 10/17/16 13:35 Vancomycin Trough 11.5 ug/mL (10-20) 10/28/16 09:00 Random Vancomycin 20.3 ug/mL (5.0-40.0) 10/29/16 06:25 Carbamazepine < 2.0 ug/ml (4.0-12.0) L 10/16/16 23:29 - Physical Exam Vitals and I&O: Vital Signs Temp 97.8 F 10/29/16 00:00 Pulse 62 04/25/17 11:21 Resp 22 10/29/16 12:00 BP 143/62 10/29/16 10:00 Pulse Ox 97 10/29/16 11:21 Intake & Output 10/28/16 10/29/16 10/29/16 18:59 06:59 18:59 Intake Total 1550 1000 Output Total 600 550 Balance 950 450 Intake: Intake, IV Amount 1300 300 Cefepime 1 gm In Dextrose 50 50 5% 50 ml @ 100 mls/hr IV Q12H [facility] Rx#:[id number] D5-0.45NS 1,000 ml @ 50 1000 mls/hr IV .Q20H [facility] Rx#: [id number] Vancomycin HCl 1.25 gm In 250 250 Sodium Chloride 0.9% 250 ml @ 165 mls/hr IV Q12H [facility] Rx#:[id number] Oral 0 Tube Feeding 250 600 Other 100 Output: Urine 600 550 Other: # Bowel Movements 1 1 Stool Characteristics Soft Mucoid Brown Active Medications: Current Medications Acetaminophen (Tylenol) 650 mg PO Q4HR PRN PRN Reason: Pain or Fever >101 Stop: 12/16/16 00:48 Last Admin: 10/19/16 05:52 Dose: 650 mg Acetylcysteine (Mucomyst 20%) 2 ml HHN QIDRT [facility] Stop: 12/27/16 18:59 Last Admin: 10/29/16 11:23 Dose: 2 ml Albuterol Sulfate (Albuterol 2.5mg/3ml Neb Ud) 2.5 mg HHN QIDRT [facility] Stop: 12/16/16 06:59 Last Admin: 10/29/16 11:20 Dose: 2.5 mg Amiodarone HCl (Cordarone) 200 mg PO DAILY [facility] Stop: 12/16/16 08:59 Last Admin: 10/29/16 08:31 Dose: 200 mg Atorvastatin Calcium (Lipitor) 10 mg PO HS [facility] PRN Reason: Protocol Stop: 12/16/16 20:59 Last Admin: 10/28/16 20:49 Dose: 10 mg Bisacodyl (Dulcolax 10 Mg Supp) 10 mg RC Q72H PRN PRN Reason: Constipation Stop: 12/16/16 00:45 Budesonide (Pulmicort) 0.5 mg HHN BIDRT [facility] Stop: 12/16/16 18:59 Last Admin: 10/29/16 06:53 Dose: 0.5 mg Clonidine HCl (Catapres) 0.1 mg PO Q6HR PRN PRN Reason: SBP GREATER THAN 160 Stop: 12/22/16 20:08 Dexamethasone Sodium Phosphate (Decadron) 4 mg IVP Q6HR [facility] Stop: 12/24/16 17:59 Last Admin: 10/29/16 12:36 Dose: 4 mg Donepezil HCl (Aricept) 10 mg PO HS [facility] Stop: 12/16/16 20:59 Last Admin: 10/28/16 20:50 Dose: 10 mg Enalaprilat (Vasotec) 1.25 mg IVP Q6HR PRN PRN Reason: SBP ABOVE 160 Stop: 12/23/16 00:00 Last Admin: 10/23/16 22:21 Dose: 1.25 mg Guaifenesin (Robitussin) 200 mg PO Q4HR PRN PRN Reason: Cough or Congestion Stop: 12/16/16 00:48 Heparin Sodium (Porcine) (Heparin) 5,000 units SUBQ Q12HR [facility] Stop: 12/16/16 08:59 Last Admin: 10/29/16 08:32 Dose: 5,000 units Cefepime HCl 1 gm/ Dextrose 50 mls @ 100 mls/hr IV Q12H [facility] Stop: 12/16/16 00:59 Last Admin: 10/29/16 12:36 Dose: 50 mls/hr Vancomycin HCl 1.5 gm/ Sodium (Chloride) 500 mls @ 250 mls/hr IV Q12H [facility] Stop: 12/28/16 09:59 Last Admin: 10/29/16 11:07 Dose: 250 mls/hr Ipratropium [place] (Atrovent Neb 0.5mg/2.5ml) 0.5 mg HHN QIDRT [facility] Stop: 12/16/16 06:59 Last Admin: 10/29/16 11:20 Dose: 0.5 mg Lactobacillus Rhamnosus (Culturelle) 1 each PO DAILY [facility] Stop: 12/17/16 08:59 Last Admin: 10/29/16 08:32 Dose: 1 each Lorazepam (Ativan) 1 mg IV Q4HR PRN; Protocol PRN Reason: Seizure Stop: 12/16/16 00:48 Last Admin: 10/18/16 02:25 Dose: 1 mg Magnesium Hydroxide (Milk Of Magnesia) 30 ml PO HS PRN PRN Reason: Constipation Stop: 12/16/16 00:45 Miscellaneous (Vancomycin Iv Per Pharmacy) 1 ea PRN [facility] Stop: 12/16/16 00:59 Miscellaneous (Probiotic Screen) 1 ea PRN PRN PRN Reason: PROTOCOL Stop: 12/16/16 16:45 Montelukast Sodium (Singulair) 10 mg PO HS [facility] Stop: 12/16/16 20:59 Last Admin: 10/28/16 20:48 Dose: 10 mg Ondansetron HCl (Zofran) 4 mg IV Q8H PRN PRN Reason: Nausea / Vomiting Stop: 12/16/16 00:48 Pantoprazole Sodium (Protonix) 40 mg PO BID [facility] Stop: 12/16/16 10:29 Last Admin: 10/29/16 08:32 Dose: 40 mg Scopolamine (Transderm Scop Patch) 1 patch TD Q72H [facility] Stop: 12/22/16 12:59 Sodium Phosphate (Fleet Enema) 135 ml RC PRN PRN PRN Reason: Constipation Stop: 12/16/16 00:45 Tamsulosin HCl (Flomax) 0.4 mg PO HS [facility] Stop: 12/16/16 20:59 Last Admin: 10/28/16 20:49 Dose: 0.4 mg General: demented HEENT: NC/AT, PERRLA Neck: Supple, No JVD Lungs: congested, rales, ronchi Cardiovascular: RRR, Normal S1, Normal S2 Abdomen: soft non-tender, globular Extremities: excoriation, contracture Neurological: no change - Procedures Procedures: Procedures Procedure Code Date ASSISTANCE WITH RESPIRATORY VENTILATION, <24 HRS, CPAP [id number] 06/29/16 EXCISION OF DUODENUM, ENDO, DIAGN [id number] 07/18/16 EXCISION OF ESOPHAGUS, ENDO, DIAGN [id number] 07/18/16 EXCISION OF STOMACH, ENDO, DIAGN [id number] 07/18/16 INSERT EMERGENCY AIRWAY [id number] 10/17/16 POS AIRWAY PRESSURE CPAP [id number] 06/29/16 RESPIRATORY VENTILATION, GREATER THAN 96 CONSECUTIVE HOURS [id number] 10/17/16 VENT MGMT INPAT INIT DAY 10/17/16 VENT MGMT INPAT SUBQ DAY 10/17/16 Internal Medicine Assmt/Plan - Assessment Assessment: dysphagia pnm arf copd gerd leukocytosis bacteremeia mrsa nares chf pleural effusion ho melanoma - Plan Plan: cotn on iv abx on vanco and maxi\pime vent support will try to wean off icu protocol dw rn will refer to card may do thoracentesis will refer to dr esteves Nutritional Asmnt/Malnutr-PDOC - Dietary Evaluation Malnutrition Findings (Please click <Entered> for more info): Nutritional Asmnt/Malnutrition Start: 10/18/16 09: 33 Text: Status: Complete Freq: Document 10/18/16 09:33 GSUN (Rec: 10/18/16 09:38 GSEFRAÍN [email or web address]) Nutritional Asmnt/Malnutrition Patient General Information Nutritional Screening Consult Diagnosis Acute respiratory failure, PNA , mild PCM, leukocytosis Pertinent Medical Hx/Surgical Hx Coronary artery disease, COPD, GERD, dementia, 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 RD consult for Ruddy Gross12. Pt with hx of resp failure, intubated in ER and transfered to ICU. Nutren Pulmonary at 20ml/hr. Discussed increasing rate to 30ml/hr with Prosource BID with RN. 30ml/hr to provide 720ml total, 1080kcal, 49g protein. Current Diet Order/ Nutrition Support Nutren Pulmonary 20ml/hr, providing 480ml total, 720kcal , 33g protein Pertinent Medications Lipitor, Dulcolax, D5, Culturelle, MOM, Vancomycin, Zofran, Protonix, Fleet Enema Pertinent Labs 10/18: glucose 111H Nutritional Hx/Data Height 1.73 m Height (Calculated Centimeters) 172.7 Current Weight (lbs) 81.647 kg Weight (Calculated Kilograms) 81.6 Weight (Calculated Grams) 63746.6 Usual body Weight (lbs) 160 [place] Body Weight 154 Weight Status Overweight GI Symptoms Skin Integrity/Comment: Ruddy Guadarrama. RN notes: buttock small stage 2 decubitus ulcer. Estimated Nutritional Goals Calories/Kcals/Kg IBW 154lb/70kg Kcals Calculated 1750-2100kcal (25-30kcal/kg) Protein g/kg: IBW Protein Calculated 84-140g (1.2-2g/kg) Fluid: ml 1750-2100ml (1ml/kcal) Nutritional Problem 1. Problem Problem Difficulty chewing/swallowing related to Etiology respiratory distress aeb Signs/Symptoms: intubated, og tube feeding Intervention/Recommendation Comments 1. Recommend increasing Nutren Pulmonary from 20ml/hr to 30ml/hrs, providing to meet 62 % of lower end of estimated kcal needs. RD to closely monitor, recommend to increase rate to meet at least 100% of estimated kcal needs once pt is medically stable on vent. 2. Recommend Prosource BID to meet 100% of estimated prot needs to prevent muscle wasting. Expected Outcomes/Goals Expected Outcomes/Goals Pt to meet at least 60% of estimated kcal and 100% of estimated prot needs with tolerance while newly intubated.
[2016-10-29] MEDS: Atorvastatin Calcium 10 MG TAB PO SCH (20:33)
[2016-10-30] MEDS: Dexamethasone Sodium Phos 4 mg/mL Vial IVP SCH ×4 (06:06→23:17)
[2016-10-30] MEDS: Albuterol Nebulizer 2.5mg/3mL HHN SCH ×4 (07:27→19:22)
[2016-10-30] MEDS: Ipratropium Neb 0.5 mg/2.5 mL UD HHN SCH ×4 (07:27→19:22)
[2016-10-30] MEDS: Budesonide 0.5 Mg/2 mL Ud HHN SCH ×2 (07:39→19:22)
[2016-10-30] MEDS: Pantoprazole 40 mg/Packet PO SCH ×2 (08:18→16:57)
[2016-10-30] MEDS: Lactobacillus Rhamnosus 10 Billion CFU Capsule PO SCH (08:19)
[2016-10-30 09:44] LABS: HEMATOCRIT 30.3 % (39.0-49.0); MEAN CORPUSCULAR HEMOGLOBIN 28.8 pg (27.0-31.0); MEAN CORPUSCULAR HGB CONC 33.1 pg (28.0-36.0); MEAN PLATELET VOLUME 8.1 fl; RED BLOOD COUNT 3.48 Mil/cmm (3.80-5.80); WHITE BLOOD COUNT 11.7 Th/cmm (4.8-10.8)
[2016-10-30 09:47] LABS: PLATELET COUNT 292 Th/cmm (150-400)
[2016-10-30 09:55] LABS: ANION GAP 7.6 (7.0-16.0); BUN - UREA NITROGEN 17 mg/dL (7-25); BUN/CREATININE RATIO 42.5; CALCIUM SERUM 8.3 mg/dL (8.6-10.3); CARBON DIOXIDE 28.6 mEq/L (21.0-31.0); CHLORIDE 107 mEq/L (98-107); CREATININE - SERUM 0.4 mg/dL (0.7-1.3); GLUCOSE 186 mg/dL (70-105); POTASSIUM SERUM 4.2 mEq/L (3.5-5.1); SODIUM SERUM 139 mEq/L (136-145)
[2016-10-30] MEDS: Vancomycin HCl 1.5 GM in Sodium Chloride 0.9% 500 ML IV SCH ×2 (10:15→21:04)
[2016-10-30 10:25] LABS: BAND NEUTROPHILE 4 % (0-10); NEUTROPHILS 89 % (40-80); PLATELET ESTIMATE ADEQUATE (NORMAL); PLATELET MORPHOLOGY NORMAL (NORMAL); TOTAL CELLS COUNTED 100
[2016-10-30] MEDS ORDERED: Scopolamine 1.5 mg/ 72 hr TDM TD SCH (11:00)
--- NOTE | 2016-10-30 13:17 | Internal Medicine Prog Note ---
Internal Medicine Subjective - Subjective Patient seen and examined:: with staff, chart reviewed Patient is:: awake, verbal, interactive Patient Complaints of:: congestion Per staff patient is:: no adverse event, no episodes of fall, confused Internal Medicine Objective - Results Result Diagrams: 10/30/16 09:00 10/30/16 09:00 Recent Labs: Laboratory Last Values WBC 11.7 Th/cmm (4.8-10.8) H 10/30/16 09:00 RBC 3.48 Mil/cmm (3.80-5.80) L 10/30/16 09:00 Hgb 10.0 gm/dL (12.6-17.4) L 10/30/16 09:00 Hct 30.3 % (39.0-49.0) L 10/30/16 09:00 MCV 87.0 fl (80-99) 10/30/16 09:00 MCH 28.8 pg (27.0-31.0) 10/30/16 09:00 MCHC Differential 33.1 pg (28.0-36.0) 10/30/16 09:00 RDW 15.0 % (11.5-20.0) 10/30/16 09:00 Plt Count 292 Th/cmm (150-400) D 10/30/16 09:00 MPV 8.1 fl 10/30/16 09:00 Neutrophils % 75.0 % (40.0-80.0) 10/23/16 07:00 Band Neutrophils % 4 % (0-10) 10/30/16 09:00 Lymphocytes % 13.5 % (20.0-50.0) L 10/23/16 07:00 Monocytes % 7.3 % (2.0-10.0) 10/23/16 07:00 Eosinophils % 3.2 % (0.0-5.0) 10/23/16 07:00 Basophils % 1.0 % (0.0-2.0) 10/23/16 07:00 Neutrophils (Manual) 89 % (40-80) H 10/30/16 09:00 Lymphocytes 6 % (20-50) L 10/30/16 09:00 Monocytes 1 % (2-10) L 10/30/16 09:00 Metamyelocytes 1 % (0-0) H 10/29/16 06:25 Platelet Estimate ADEQUATE (NORMAL) 10/30/16 09:00 Platelet Morphology NORMAL (NORMAL) 10/30/16 09:00 RBC Morph Micro Appear NORMAL (NORMAL) 10/30/16 09:00 PT 10.6 SECONDS (9.5-11.5) 10/25/16 09:15 INR 1.02 (0.5-1.4) 10/25/16 09:15 PTT (Actin FS) 27.0 SECONDS (26.0-38.0) 10/17/16 15:45 Specimen Source Arterial 10/23/16 08:50 Sample Site Left Radial 10/23/16 08:50 pH 7.42 (7.35-7.45) 10/23/16 08:50 pCO2 45.0 mmHg (35.0-45.0) 10/23/16 08:50 pO2 81.0 mmHg (80.0-100.0) 10/23/16 08:50 HCO3 28.1 mEq/L (20.0-26.0) H 10/23/16 08:50 Base Excess 4.1 mEq/L (-3.0-3.0) H 10/23/16 08:50 O2 Saturation 96.0 % (92.0-100.0) 10/23/16 08:50 Praveen Test Positive 10/23/16 08:50 Vent Rate NA 10/23/16 08:50 Inspired O2 32 10/23/16 08:50 Tidal Volume NA 10/23/16 08:50 PEEP NA 10/23/16 08:50 Pressure (ins/psv/peep) NA 10/23/16 08:50 Critical Value ACELIS 10/23/16 08:50 Sodium 139 mEq/L (136-145) 10/30/16 09:00 Potassium 4.2 mEq/L (3.5-5.1) 10/30/16 09:00 Chloride 107 mEq/L (98-107) 10/30/16 09:00 Carbon Dioxide 28.6 mEq/L (21.0-31.0) 10/30/16 09:00 Anion Gap 7.6 (7.0-16.0) 10/30/16 09:00 BUN 17 mg/dL (7-25) 10/30/16 09:00 Creatinine 0.4 mg/dL (0.7-1.3) L 10/30/16 09:00 Est GFR ( Amer) TNP 10/30/16 09:00 Est GFR (Non-Af Amer) TNP 10/30/16 09:00 BUN/Creatinine Ratio 42.5 10/30/16 09:00 Glucose 186 mg/dL (70-105) H 10/30/16 09:00 POC Glucose 96 MG/DL (70 - 105) 10/19/16 21:03 Hemoglobin A1c % 5.4 % (4.0-6.0) 10/25/16 09:15 Whole Bld Lactic Acid 1.17 mmol/L (0.60-1.99) 10/17/16 06:10 Calcium 8.3 mg/dL (8.6-10.3) L 10/30/16 09:00 Phosphorus 2.5 mg/dL (2.5-5.0) 10/18/16 07:07 Magnesium 2.2 mg/dL (1.9-2.7) 10/26/16 06:16 Total Bilirubin 0.2 mg/dL (0.3-1.0) L 10/27/16 04:45 AST 12 U/L (13-39) L 10/27/16 04:45 ALT 14 U/L (7-52) 10/27/16 04:45 Alkaline Phosphatase 42 U/L (34-104) 10/27/16 04:45 Ammonia 36 umol/L (16-53) 10/19/16 05:00 Troponin I 0.02 ng/mL (0.01-0.05) 10/16/16 23:29 B-Natriuretic Peptide 184.0 pg/mL (5.0-100.0) H 10/29/16 06:25 Total Protein 4.7 gm/dL (6.0-8.3) L 10/27/16 04:45 Albumin 2.5 gm/dL (4.2-5.5) L 10/27/16 04:45 Globulin 2.2 gm/dL 10/27/16 04:45 Albumin/Globulin Ratio 1.1 (1.0-1.8) 10/27/16 04:45 Prostate Specific Ag 11.0 ng/mL (0.0-4.0) H 10/25/16 09:15 Vitamin B12 476 pg/mL (211-946) 10/17/16 06:10 Folic Acid >20.0 ng/mL (>3.0) 10/17/16 06:10 TSH 0.47 uIU/ml (0.34-5.60) 10/17/16 06:10 Testosterone Level 453 10/25/16 09:15 Testosterone Comment 10/25/16 09:15 Urine Source ALVARE[place] 10/17/16 13:35 Urine Color YELLOW 10/17/16 13:35 Urine Clarity SLIGHT HAZY (CLEAR) 10/17/16 13:35 Urine pH 5.0 10/17/16 13:35 Ur Specific [place] 1.025 (1.005-1.030) 10/17/16 13:35 Urine Protein 30 mg/dL (NEGATIVE) H 10/17/16 13:35 Urine Glucose (UA) NEGATIVE mg/dL (NEGATIVE) 10/17/16 13:35 Urine Ketones NEGATIVE mg/dL (NEGATIVE) 10/17/16 13:35 Urine Blood NEGATIVE (NEGATIVE) 10/17/16 13:35 Urine Nitrate NEGATIVE (NEGATIVE) 10/17/16 13:35 Urine Bilirubin NEGATIVE (NEGATIVE) 10/17/16 13:35 Urine Urobilinogen 0.2 E.U./dL (0.2 - 1.0) 10/17/16 13:35 Ur Leukocyte Esterase NEGATIVE (NEGATIVE) 10/17/16 13:35 Urine RBC 0-1 /hpf (0-5) 10/17/16 13:35 Urine WBC 0-2 /hpf (0-5) 10/17/16 13:35 Ur Epithelial Cells OCCASIONAL /lpf (FEW) 10/17/16 13:35 Amorphous Sediment MODERATE URATES (NONE SEEN) 10/17/16 13:35 Urine Bacteria 1+ /hpf (NONE SEEN) H 10/17/16 13:35 Vancomycin Trough 19.0 ug/mL (10-20) 10/30/16 09:00 Random Vancomycin 20.3 ug/mL (5.0-40.0) 10/29/16 06:25 Carbamazepine < 2.0 ug/ml (4.0-12.0) L 10/16/16 23:29 - Physical Exam Vitals and I&O: Vital Signs Temp 97.4 F 10/30/16 12:00 Pulse 63 10/30/16 12:00 Resp 19 10/30/16 12:00 BP 125/56 10/30/16 12:00 Pulse Ox 98 10/30/16 12:00 Intake & Output 10/29/16 10/30/16 10/30/16 18:59 06:59 18:59 Intake Total 1270 1350 500 Output Total 950 1300 Balance 320 50 500 Intake: Intake, IV Amount 550 550 500 Cefepime 1 gm In Dextrose 50 50 5% 50 ml @ 100 mls/hr IV Q12H [facility] Rx#:[id number] Vancomycin HCl 1.5 gm In 500 500 500 Sodium Chloride 0.9% 500 ml @ 250 mls/hr IV Q12H [facility] Rx#:[id number] Tube Feeding 600 600 Other 120 200 Output: Urine 950 1300 Other: # Bowel Movements 1 Stool Characteristics Soft Active Medications: Current Medications Acetaminophen (Tylenol) 650 mg PO Q4HR PRN PRN Reason: Pain or Fever >101 Stop: 12/16/16 00:48 Last Admin: 10/19/16 05:52 Dose: 650 mg Acetylcysteine (Mucomyst 20%) 2 ml HHN QIDRT [facility] Stop: 12/27/16 18:59 Last Admin: 10/30/16 11:16 Dose: 2 ml Albuterol Sulfate (Albuterol 2.5mg/3ml Neb Ud) 2.5 mg HHN QIDRT [facility] Stop: 12/16/16 06:59 Last Admin: 10/30/16 11:16 Dose: 2.5 mg Amiodarone HCl (Cordarone) 200 mg PO DAILY [facility] Stop: 12/16/16 08:59 Last Admin: 10/30/16 08:18 Dose: 200 mg Atorvastatin Calcium (Lipitor) 10 mg PO HS [facility] PRN Reason: Protocol Stop: 12/16/16 20:59 Last Admin: 10/29/16 20:33 Dose: 10 mg Bisacodyl (Dulcolax 10 Mg Supp) 10 mg RC Q72H PRN PRN Reason: Constipation Stop: 12/16/16 00:45 Budesonide (Pulmicort) 0.5 mg HHN BIDRT [facility] Stop: 12/16/16 18:59 Last Admin: 10/30/16 07:39 Dose: 0.5 mg Clonidine HCl (Catapres) 0.1 mg PO Q6HR PRN PRN Reason: SBP GREATER THAN 160 Stop: 12/22/16 20:08 Last Admin: 10/29/16 23:30 Dose: 0.1 mg Dexamethasone Sodium Phosphate (Decadron) 4 mg IVP Q6HR [facility] Stop: 12/24/16 17:59 Last Admin: 10/30/16 12:18 Dose: 4 mg Donepezil HCl (Aricept) 10 mg PO HS [facility] Stop: 12/16/16 20:59 Last Admin: 10/29/16 20:33 Dose: 10 mg Enalaprilat (Vasotec) 1.25 mg IVP Q6HR PRN PRN Reason: SBP ABOVE 160 Stop: 12/23/16 00:00 Last Admin: 10/23/16 22:21 Dose: 1.25 mg Guaifenesin (Robitussin) 200 mg PO Q4HR PRN PRN Reason: Cough or Congestion Stop: 12/16/16 00:48 Heparin Sodium (Porcine) (Heparin) 5,000 units SUBQ Q12HR [facility] Stop: 12/16/16 08:59 Last Admin: 10/30/16 08:19 Dose: 5,000 units Cefepime HCl 1 gm/ Dextrose 50 mls @ 100 mls/hr IV Q12H [facility] Stop: 12/16/16 00:59 Last Admin: 10/30/16 12:18 Dose: 100 mls/hr Vancomycin HCl 1.5 gm/ Sodium (Chloride) 500 mls @ 250 mls/hr IV Q12H [facility] Stop: 12/28/16 09:59 Last Infusion: 10/30/16 12:15 Dose: Infused Ipratropium [place] (Atrovent Neb 0.5mg/2.5ml) 0.5 mg HHN QIDRT [facility] Stop: 12/16/16 06:59 Last Admin: 10/30/16 11:16 Dose: 0.5 mg Lactobacillus Rhamnosus (Culturelle) 1 each PO DAILY [facility] Stop: 12/17/16 08:59 Last Admin: 10/30/16 08:19 Dose: 1 each Lorazepam (Ativan) 1 mg IV Q4HR PRN; Protocol PRN Reason: Seizure Stop: 12/16/16 00:48 Last Admin: 10/18/16 02:25 Dose: 1 mg Magnesium Hydroxide (Milk Of Magnesia) 30 ml PO HS PRN PRN Reason: Constipation Stop: 12/16/16 00:45 Miscellaneous (Vancomycin Iv Per Pharmacy) 1 ea PRN [facility] Stop: 12/16/16 00:59 Miscellaneous (Probiotic Screen) 1 ea PRN PRN PRN Reason: PROTOCOL Stop: 12/16/16 16:45 Montelukast Sodium (Singulair) 10 mg PO HS [facility] Stop: 12/16/16 20:59 Last Admin: 10/29/16 20:33 Dose: 10 mg Ondansetron HCl (Zofran) 4 mg IV Q8H PRN PRN Reason: Nausea / Vomiting Stop: 12/16/16 00:48 Pantoprazole Sodium (Protonix) 40 mg PO BID [facility] Stop: 12/16/16 10:29 Last Admin: 10/30/16 08:18 Dose: 40 mg Scopolamine (Transderm Scop Patch) 1 patch TD Q72HR@0900 [facility] Stop: 12/29/16 10:59 Sodium Phosphate (Fleet Enema) 135 ml RC PRN PRN PRN Reason: Constipation Stop: 12/16/16 00:45 Tamsulosin HCl (Flomax) 0.4 mg PO HS [facility] Stop: 12/16/16 20:59 Last Admin: 10/29/16 20:33 Dose: 0.4 mg General: demented HEENT: NC/AT, PERRLA Neck: Supple, No JVD Lungs: congested Cardiovascular: RRR, Normal S1, Normal S2 Abdomen: soft non-tender, globular Extremities: excoriation, contracture Neurological: disorganized, unable to follow command - Procedures Procedures: Procedures Procedure Code Date ASSISTANCE WITH RESPIRATORY VENTILATION, <24 HRS, CPAP [id number] 06/29/16 EXCISION OF DUODENUM, ENDO, DIAGN [id number] 07/18/16 EXCISION OF ESOPHAGUS, ENDO, DIAGN [id number] 07/18/16 EXCISION OF STOMACH, ENDO, DIAGN [id number] 07/18/16 INSERT EMERGENCY AIRWAY 60440 10/17/16 POS AIRWAY PRESSURE CPAP 30660 06/29/16 RESPIRATORY VENTILATION, GREATER THAN 96 CONSECUTIVE HOURS [id number] 10/17/16 VENT MGMT INPAT INIT DAY 86520 10/17/16 VENT MGMT INPAT SUBQ DAY 81141 10/17/16 Internal Medicine Assmt/Plan - Assessment Assessment: dysphagia pnm arf copd gerd leukocytosis bacteremeia mrsa nares chf pleural effusion ho melanoma - Plan Plan: cotn on iv abx on vanco and maxi\pime vent support will try to wean off icu protocol sudhakar rn will refer to card may do thoracentesis will refer to dr danielito de la fuente sister vinay bauer Nutritional Asmnt/Malnutr-PDOC - Dietary Evaluation Malnutrition Findings (Please click <Entered> for more info): Nutritional Asmnt/Malnutrition Start: 10/18/16 09: 33 Text: Status: Complete Freq: Document 10/18/16 09:33 GSUN (Rec: 10/18/16 09:38 GSUN [email or web address]) Nutritional Asmnt/Malnutrition Patient General Information Nutritional Screening Consult Diagnosis Acute respiratory failure, PNA , mild PCM, leukocytosis Pertinent Medical Hx/Surgical Hx Coronary artery disease, COPD, GERD, dementia, 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 RD consult for Ruddy Gross12. Pt with hx of resp failure, intubated in ER and transfered to ICU. Nutren Pulmonary at 20ml/hr. Discussed increasing rate to 30ml/hr with Prosource BID with RN. 30ml/hr to provide 720ml total, 1080kcal, 49g protein. Current Diet Order/ Nutrition Support Nutren Pulmonary 20ml/hr, providing 480ml total, 720kcal , 33g protein Pertinent Medications Lipitor, Dulcolax, D5, Culturelle, MOM, Vancomycin, Zofran, Protonix, Fleet Enema Pertinent Labs 10/18: glucose 111H Nutritional Hx/Data Height 1.73 m Height (Calculated Centimeters) 172.7 Current Weight (lbs) 81.647 kg Weight (Calculated Kilograms) 81.6 Weight (Calculated Grams) 74683.6 Usual body Weight (lbs) 160 [place] Body Weight 154 Weight Status Overweight GI Symptoms Skin Integrity/Comment: Ruddy Guadarrama. RN notes: buttock small stage 2 decubitus ulcer. Estimated Nutritional Goals Calories/Kcals/Kg IBW 154lb/70kg Kcals Calculated 1750-2100kcal (25-30kcal/kg) Protein g/kg: IBW Protein Calculated 84-140g (1.2-2g/kg) Fluid: ml 1750-2100ml (1ml/kcal) Nutritional Problem 1. Problem Problem Difficulty chewing/swallowing related to Etiology respiratory distress aeb Signs/Symptoms: intubated, og tube feeding Intervention/Recommendation Comments 1. Recommend increasing Nutren Pulmonary from 20ml/hr to 30ml/hrs, providing to meet 62 % of lower end of estimated kcal needs. RD to closely monitor, recommend to increase rate to meet at least 100% of estimated kcal needs once pt is medically stable on vent. 2. Recommend Prosource BID to meet 100% of estimated prot needs to prevent muscle wasting. Expected Outcomes/Goals Expected Outcomes/Goals Pt to meet at least 60% of estimated kcal and 100% of estimated prot needs with tolerance while newly intubated.
[2016-10-30] MEDS: Atorvastatin Calcium 10 MG TAB PO SCH (20:08)
[2016-10-31] MEDS: Dexamethasone Sodium Phos 4 mg/mL Vial IVP SCH ×4 (06:24→23:49)
[2016-10-31] MEDS: Budesonide 0.5 Mg/2 mL Ud HHN SCH ×2 (07:53→19:13)
[2016-10-31] MEDS: Albuterol Nebulizer 2.5mg/3mL HHN SCH ×4 (07:53→18:57)
[2016-10-31] MEDS: Ipratropium Neb 0.5 mg/2.5 mL UD HHN SCH ×4 (07:53→18:57)
[2016-10-31] MEDS: Pantoprazole 40 mg/Packet PO SCH ×2 (08:09→17:06)
[2016-10-31] MEDS: Lactobacillus Rhamnosus 10 Billion CFU Capsule PO SCH (08:09)
--- NOTE | 2016-10-31 09:25 | Diagnostic Imaging Report ---
Portable chest x-ray HISTORY: Shortness of breath Compared to prior exam of 10/29/2016, evidence of a persistent left pleural effusion. The heart remains enlarged. Surgical changes noted. IMPRESSION: 1. No change in the cardiopulmonary status.
[2016-10-31] MEDS: Vancomycin HCl 1.5 GM in Sodium Chloride 0.9% 500 ML IV SCH ×2 (11:05→22:04)
--- NOTE | 2016-10-31 13:29 | Internal Medicine Prog Note ---
Internal Medicine Subjective - Subjective Patient seen and examined:: with staff, chart reviewed Patient is:: awake, verbal, interactive Patient Complaints of:: congestion Per staff patient is:: no adverse event, no episodes of fall, confused Internal Medicine Objective - Results Result Diagrams: 10/30/16 09:00 10/30/16 09:00 Recent Labs: Laboratory Last Values WBC 11.7 Th/cmm (4.8-10.8) H 10/30/16 09:00 RBC 3.48 Mil/cmm (3.80-5.80) L 10/30/16 09:00 Hgb 10.0 gm/dL (12.6-17.4) L 10/30/16 09:00 Hct 30.3 % (39.0-49.0) L 10/30/16 09:00 MCV 87.0 fl (80-99) 10/30/16 09:00 MCH 28.8 pg (27.0-31.0) 10/30/16 09:00 MCHC Differential 33.1 pg (28.0-36.0) 10/30/16 09:00 RDW 15.0 % (11.5-20.0) 10/30/16 09:00 Plt Count 292 Th/cmm (150-400) D 10/30/16 09:00 MPV 8.1 fl 10/30/16 09:00 Neutrophils % 75.0 % (40.0-80.0) 10/23/16 07:00 Band Neutrophils % 4 % (0-10) 10/30/16 09:00 Lymphocytes % 13.5 % (20.0-50.0) L 10/23/16 07:00 Monocytes % 7.3 % (2.0-10.0) 10/23/16 07:00 Eosinophils % 3.2 % (0.0-5.0) 10/23/16 07:00 Basophils % 1.0 % (0.0-2.0) 10/23/16 07:00 Neutrophils (Manual) 89 % (40-80) H 10/30/16 09:00 Lymphocytes 6 % (20-50) L 10/30/16 09:00 Monocytes 1 % (2-10) L 10/30/16 09:00 Metamyelocytes 1 % (0-0) H 10/29/16 06:25 Platelet Estimate ADEQUATE (NORMAL) 10/30/16 09:00 Platelet Morphology NORMAL (NORMAL) 10/30/16 09:00 RBC Morph Micro Appear NORMAL (NORMAL) 10/30/16 09:00 PT 10.6 SECONDS (9.5-11.5) 10/25/16 09:15 INR 1.02 (0.5-1.4) 10/25/16 09:15 PTT (Actin FS) 27.0 SECONDS (26.0-38.0) 10/17/16 15:45 Specimen Source Arterial 10/23/16 08:50 Sample Site Left Radial 10/23/16 08:50 pH 7.42 (7.35-7.45) 10/23/16 08:50 pCO2 45.0 mmHg (35.0-45.0) 10/23/16 08:50 pO2 81.0 mmHg (80.0-100.0) 10/23/16 08:50 HCO3 28.1 mEq/L (20.0-26.0) H 10/23/16 08:50 Base Excess 4.1 mEq/L (-3.0-3.0) H 10/23/16 08:50 O2 Saturation 96.0 % (92.0-100.0) 10/23/16 08:50 Praveen Test Positive 10/23/16 08:50 Vent Rate NA 10/23/16 08:50 Inspired O2 32 10/23/16 08:50 Tidal Volume NA 10/23/16 08:50 PEEP NA 10/23/16 08:50 Pressure (ins/psv/peep) NA 10/23/16 08:50 Critical Value ACELIS 10/23/16 08:50 Sodium 139 mEq/L (136-145) 10/30/16 09:00 Potassium 4.2 mEq/L (3.5-5.1) 10/30/16 09:00 Chloride 107 mEq/L (98-107) 10/30/16 09:00 Carbon Dioxide 28.6 mEq/L (21.0-31.0) 10/30/16 09:00 Anion Gap 7.6 (7.0-16.0) 10/30/16 09:00 BUN 17 mg/dL (7-25) 10/30/16 09:00 Creatinine 0.4 mg/dL (0.7-1.3) L 10/30/16 09:00 Est GFR ( Amer) TNP 10/30/16 09:00 Est GFR (Non-Af Amer) TNP 10/30/16 09:00 BUN/Creatinine Ratio 42.5 10/30/16 09:00 Glucose 186 mg/dL (70-105) H 10/30/16 09:00 POC Glucose 96 MG/DL (70 - 105) 10/19/16 21:03 Hemoglobin A1c % 5.4 % (4.0-6.0) 10/25/16 09:15 Whole Bld Lactic Acid 1.17 mmol/L (0.60-1.99) 10/17/16 06:10 Calcium 8.3 mg/dL (8.6-10.3) L 10/30/16 09:00 Phosphorus 2.5 mg/dL (2.5-5.0) 10/18/16 07:07 Magnesium 2.2 mg/dL (1.9-2.7) 10/26/16 06:16 Total Bilirubin 0.2 mg/dL (0.3-1.0) L 10/27/16 04:45 AST 12 U/L (13-39) L 10/27/16 04:45 ALT 14 U/L (7-52) 10/27/16 04:45 Alkaline Phosphatase 42 U/L (34-104) 10/27/16 04:45 Ammonia 36 umol/L (16-53) 10/19/16 05:00 Troponin I 0.02 ng/mL (0.01-0.05) 10/16/16 23:29 B-Natriuretic Peptide 184.0 pg/mL (5.0-100.0) H 10/29/16 06:25 Total Protein 4.7 gm/dL (6.0-8.3) L 10/27/16 04:45 Albumin 2.5 gm/dL (4.2-5.5) L 10/27/16 04:45 Globulin 2.2 gm/dL 10/27/16 04:45 Albumin/Globulin Ratio 1.1 (1.0-1.8) 10/27/16 04:45 Prostate Specific Ag 11.0 ng/mL (0.0-4.0) H 10/25/16 09:15 Vitamin B12 476 pg/mL (211-946) 10/17/16 06:10 Folic Acid >20.0 ng/mL (>3.0) 10/17/16 06:10 TSH 0.47 uIU/ml (0.34-5.60) 10/17/16 06:10 Testosterone Level 453 10/25/16 09:15 Testosterone Comment 10/25/16 09:15 Urine Source [place] 10/17/16 13:35 Urine Color YELLOW 10/17/16 13:35 Urine Clarity SLIGHT HAZY (CLEAR) 10/17/16 13:35 Urine pH 5.0 10/17/16 13:35 Ur Specific [place] 1.025 (1.005-1.030) 10/17/16 13:35 Urine Protein 30 mg/dL (NEGATIVE) H 10/17/16 13:35 Urine Glucose (UA) NEGATIVE mg/dL (NEGATIVE) 10/17/16 13:35 Urine Ketones NEGATIVE mg/dL (NEGATIVE) 10/17/16 13:35 Urine Blood NEGATIVE (NEGATIVE) 10/17/16 13:35 Urine Nitrate NEGATIVE (NEGATIVE) 10/17/16 13:35 Urine Bilirubin NEGATIVE (NEGATIVE) 10/17/16 13:35 Urine Urobilinogen 0.2 E.U./dL (0.2 - 1.0) 10/17/16 13:35 Ur Leukocyte Esterase NEGATIVE (NEGATIVE) 10/17/16 13:35 Urine RBC 0-1 /hpf (0-5) 10/17/16 13:35 Urine WBC 0-2 /hpf (0-5) 10/17/16 13:35 Ur Epithelial Cells OCCASIONAL /lpf (FEW) 10/17/16 13:35 Amorphous Sediment MODERATE URATES (NONE SEEN) 10/17/16 13:35 Urine Bacteria 1+ /hpf (NONE SEEN) H 10/17/16 13:35 Vancomycin Trough 19.0 ug/mL (10-20) 10/30/16 09:00 Random Vancomycin 20.3 ug/mL (5.0-40.0) 10/29/16 06:25 Carbamazepine < 2.0 ug/ml (4.0-12.0) L 10/16/16 23:29 - Physical Exam Vitals and I&O: Vital Signs Temp 97.0 F 10/31/16 12:00 Pulse 66 10/31/16 12:00 Resp 19 10/31/16 12:00 BP 150/66 10/31/16 12:00 Pulse Ox 97 10/31/16 12:00 Intake & Output 10/30/16 10/31/16 10/31/16 18:59 06:59 18:59 Intake Total 1370 1590 Output Total 400 800 Balance 970 790 Intake: Intake, IV Amount 550 550 Cefepime 1 gm In Dextrose 50 50 5% 50 ml @ 100 mls/hr IV Q12H [facility] Rx#:[id number] Vancomycin HCl 1.5 gm In 500 500 Sodium Chloride 0.9% 500 ml @ 250 mls/hr IV Q12H [facility] Rx#:[id number] Tube Feeding 720 840 Other 100 200 Output: Urine 400 800 Other: # Bowel Movements 1 0 Stool Characteristics Soft Brown Active Medications: Current Medications Acetaminophen (Tylenol) 650 mg PO Q4HR PRN PRN Reason: Pain or Fever >101 Stop: 12/16/16 00:48 Last Admin: 10/19/16 05:52 Dose: 650 mg Acetylcysteine (Mucomyst 20%) 2 ml HHN QIDRT [facility] Stop: 12/27/16 18:59 Last Admin: 10/31/16 11:35 Dose: 2 ml Albuterol Sulfate (Albuterol 2.5mg/3ml Neb Ud) 2.5 mg HHN QIDRT [facility] Stop: 12/16/16 06:59 Last Admin: 10/31/16 11:34 Dose: 2.5 mg Atorvastatin Calcium (Lipitor) 10 mg PO HS [facility] PRN Reason: Protocol Stop: 12/16/16 20:59 Last Admin: 10/30/16 20:08 Dose: 10 mg Bisacodyl (Dulcolax 10 Mg Supp) 10 mg RC Q72H PRN PRN Reason: Constipation Stop: 12/16/16 00:45 Budesonide (Pulmicort) 0.5 mg HHN BIDRT [facility] Stop: 12/16/16 18:59 Last Admin: 10/31/16 07:53 Dose: 0.5 mg Clonidine HCl (Catapres) 0.1 mg PO Q6HR PRN PRN Reason: SBP GREATER THAN 160 Stop: 12/22/16 20:08 Last Admin: 10/29/16 23:30 Dose: 0.1 mg Dexamethasone Sodium Phosphate (Decadron) 4 mg IVP Q6HR [facility] Stop: 12/24/16 17:59 Last Admin: 10/31/16 11:06 Dose: 4 mg Donepezil HCl (Aricept) 10 mg PO HS [facility] Stop: 12/16/16 20:59 Last Admin: 10/30/16 20:08 Dose: 10 mg Enalaprilat (Vasotec) 1.25 mg IVP Q6HR PRN PRN Reason: SBP ABOVE 160 Stop: 12/23/16 00:00 Last Admin: 10/23/16 22:21 Dose: 1.25 mg Guaifenesin (Robitussin) 200 mg PO Q4HR PRN PRN Reason: Cough or Congestion Stop: 12/16/16 00:48 Last Admin: 10/30/16 20:12 Dose: 200 mg Heparin Sodium (Porcine) (Heparin) 5,000 units SUBQ Q12HR [facility] Stop: 12/16/16 08:59 Last Admin: 10/31/16 08:09 Dose: 5,000 units Vancomycin HCl 1.5 gm/ Sodium (Chloride) 500 mls @ 250 mls/hr IV Q12H [facility] Stop: 12/28/16 09:59 Last Admin: 10/31/16 11:05 Dose: 250 mls/hr Ipratropium [place] (Atrovent Neb 0.5mg/2.5ml) 0.5 mg HHN QIDRT [facility] Stop: 12/16/16 06:59 Last Admin: 10/31/16 11:34 Dose: 0.5 mg Lactobacillus Rhamnosus (Culturelle) 1 each PO DAILY [facility] Stop: 12/17/16 08:59 Last Admin: 10/31/16 08:09 Dose: 1 each Lorazepam (Ativan) 1 mg IV Q4HR PRN; Protocol PRN Reason: Seizure Stop: 12/16/16 00:48 Last Admin: 10/18/16 02:25 Dose: 1 mg Magnesium Hydroxide (Milk Of Magnesia) 30 ml PO HS PRN PRN Reason: Constipation Stop: 12/16/16 00:45 Miscellaneous (Vancomycin Iv Per Pharmacy) 1 ea PRN [facility] Stop: 12/16/16 00:59 Miscellaneous (Probiotic Screen) 1 ea PRN PRN PRN Reason: PROTOCOL Stop: 12/16/16 16:45 Montelukast Sodium (Singulair) 10 mg PO HS [facility] Stop: 12/16/16 20:59 Last Admin: 10/30/16 20:08 Dose: 10 mg Ondansetron HCl (Zofran) 4 mg IV Q8H PRN PRN Reason: Nausea / Vomiting Stop: 12/16/16 00:48 Pantoprazole Sodium (Protonix) 40 mg PO BID [facility] Stop: 12/16/16 10:29 Last Admin: 10/31/16 08:09 Dose: 40 mg Scopolamine (Transderm Scop Patch) 1 patch TD Q72HR@0900 [facility] Stop: 12/29/16 10:59 Last Admin: 10/30/16 14:25 Dose: Not Given Sodium Phosphate (Fleet Enema) 135 ml RC PRN PRN PRN Reason: Constipation Stop: 12/16/16 00:45 Tamsulosin HCl (Flomax) 0.4 mg PO HS [facility] Stop: 12/16/16 20:59 Last Admin: 10/30/16 20:08 Dose: 0.4 mg General: demented HEENT: NC/AT, PERRLA Neck: Supple, No JVD Lungs: congested, rales Cardiovascular: RRR, Normal S1, Normal S2 Abdomen: soft non-tender, globular, non-distended, +GT Extremities: excoriation, contracture Neurological: no change - Procedures Procedures: Procedures Procedure Code Date ASSISTANCE WITH RESPIRATORY VENTILATION, <24 HRS, CPAP [id number] 06/29/16 EXCISION OF DUODENUM, ENDO, DIAGN [id number] 07/18/16 EXCISION OF ESOPHAGUS, ENDO, DIAGN [id number] 07/18/16 EXCISION OF STOMACH, ENDO, DIAGN [id number] 07/18/16 INSERT EMERGENCY AIRWAY [id number] 10/17/16 POS AIRWAY PRESSURE CPAP [id number] 06/29/16 RESPIRATORY VENTILATION, GREATER THAN 96 CONSECUTIVE HOURS [id number] 10/17/16 VENT MGMT INPAT INIT DAY 85186 10/17/16 VENT MGMT INPAT SUBQ DAY 83382 10/17/16 Internal Medicine Assmt/Plan - Assessment Assessment: dysphagia pnm arf copd gerd leukocytosis bacteremeia mrsa nares chf pleural effusion ho melanoma - Plan Plan: cotn on iv abx on vanco and maxi\pime vent support will try to wean off icu protocol dw rn will refer to card may do thoracentesis will refer to dr danielito de la fuente sister vinay bauer Nutritional Asmnt/Malnutr-PDOC - Dietary Evaluation Malnutrition Findings (Please click <Entered> for more info): Nutritional Asmnt/Malnutrition Start: 10/18/16 09: 33 Text: Status: Complete Freq: Document 10/18/16 09:33 GSUN (Rec: 10/18/16 09:38 GSUN [email or web address]) Nutritional Asmnt/Malnutrition Patient General Information Nutritional Screening Consult Diagnosis Acute respiratory failure, PNA , mild PCM, leukocytosis Pertinent Medical Hx/Surgical Hx Coronary artery disease, COPD, GERD, dementia, 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 RD consult for Ruddy <12. Pt with hx of resp failure, intubated in ER and transfered to ICU. Nutren Pulmonary at 20ml/hr. Discussed increasing rate to 30ml/hr with Prosource BID with RN. 30ml/hr to provide 720ml total, 1080kcal, 49g protein. Current Diet Order/ Nutrition Support Nutren Pulmonary 20ml/hr, providing 480ml total, 720kcal , 33g protein Pertinent Medications Lipitor, Dulcolax, D5, Culturelle, MOM, Vancomycin, Zofran, Protonix, Fleet Enema Pertinent Labs 10/18: glucose 111H Nutritional Hx/Data Height 1.73 m Height (Calculated Centimeters) 172.7 Current Weight (lbs) 81.647 kg Weight (Calculated Kilograms) 81.6 Weight (Calculated Grams) 11611.6 Usual body Weight (lbs) 160 [place] Body Weight 154 Weight Status Overweight GI Symptoms Skin Integrity/Comment: Ruddy 12. RN notes: buttock small stage 2 decubitus ulcer. Estimated Nutritional Goals Calories/Kcals/Kg IBW 154lb/70kg Kcals Calculated 1750-2100kcal (25-30kcal/kg) Protein g/kg: IBW Protein Calculated 84-140g (1.2-2g/kg) Fluid: ml 1750-2100ml (1ml/kcal) Nutritional Problem 1. Problem Problem Difficulty chewing/swallowing related to Etiology respiratory distress aeb Signs/Symptoms: intubated, og tube feeding Intervention/Recommendation Comments 1. Recommend increasing Nutren Pulmonary from 20ml/hr to 30ml/hrs, providing to meet 62 % of lower end of estimated kcal needs. RD to closely monitor, recommend to increase rate to meet at least 100% of estimated kcal needs once pt is medically stable on vent. 2. Recommend Prosource BID to meet 100% of estimated prot needs to prevent muscle wasting. Expected Outcomes/Goals Expected Outcomes/Goals Pt to meet at least 60% of estimated kcal and 100% of estimated prot needs with tolerance while newly intubated.
[2016-10-31] MEDS: Atorvastatin Calcium 10 MG TAB PO SCH (20:37)
[2016-11-01] MEDS: Dexamethasone Sodium Phos 4 mg/mL Vial IVP SCH ×2 (05:51→11:49)
[2016-11-01] MEDS: Budesonide 0.5 Mg/2 mL Ud HHN SCH (07:27)
[2016-11-01] MEDS: Albuterol Nebulizer 2.5mg/3mL HHN SCH ×2 (07:27→11:10)
[2016-11-01] MEDS: Ipratropium Neb 0.5 mg/2.5 mL UD HHN SCH ×2 (07:27→11:10)
[2016-11-01] MEDS: Lactobacillus Rhamnosus 10 Billion CFU Capsule PO SCH (08:33)
[2016-11-01] MEDS: Pantoprazole 40 mg/Packet PO SCH (08:33)
[2016-11-01] MEDS ORDERED: Vancomycin HCl 1.5 GM in Sodium Chloride 0.9% 500 ML IV SCH (10:00)
--- NOTE | 2016-11-01 22:01 | Discharge Summary ---
DATE OF DISCHARGE: 11/01/2016 PRIMARY DIAGNOSES: Central nervous system lesion, ____ secondary to melanoma, acute respiratory failure, pneumonia, coronary artery disease, chronic obstructive pulmonary disease, gastroesophageal reflux disease, dementia, leukocytosis, lactic acidosis, mild protein-calorie malnutrition, hyperglycemia, debilitation, functional quadriplegia, dysphagia, status post percutaneous endoscopic gastrostomy, leukocytosis, Methicillin-resistant Staphylococcus aureus ____ bacteremia, pleural effusion. HISTORY: This is a 76-year-old male with multiple medical problems including a COPD, chronic respiratory failure, GERD, CAD, was admitted from nursing facility secondary to respiratory distress. The patient was admitted, was brought in the ER with elevated white count 23,000 and had to be intubated secondary to desaturation. PHYSICAL EXAMINATION: VITAL SIGNS: Blood pressure 143/____, respirations 16, pulse 60, temperature 97.5. GENERAL: Elderly male who appears his stated age ____. NECK: Supple. LUNGS: Equal breath sounds, few rhonchi. HEART: Regular rate and rhythm without systolic ejection murmur. ABDOMEN: Soft, nontender, globular. Positive G-tube. EXTREMITIES: Positive excoriations. NEUROLOGIC: Limited. HOSPITAL COURSE: The patient admitted to the ICU. The patient was able to be extubated. The patient was referred to Dr. Santizo for Pulmonary, Dr. Snow for Oncology, Dr. Alex Newell for Cardiology, Dr. Montoya for GI. The patient had a G-tube placement. The patient is on IV steroids to lessen brain edema. The patient was on vancomycin for pneumonia. The patient to be transferred to [place] for radiation therapy. CONDITION ON DISCHARGE: Fair. DISCHARGE INSTRUCTIONS: The patient to be transferred for further management. Case was discussed with the patient's sister. JOB# [id number]
== END 2016-11-01 14:30 | disposition short-term general hospital (02) | DRG 870 ==
LOC: ER 22:43 → ICU 10-17 00:45
PROVIDERS: ADMIT Internal Medicine; ATTEND Internal Medicine
PROC: 0BH17EZ Insertion of Endotracheal Airway into Trachea, Via Natural or Artificial Opening (ICD-10-PCS; 2016-10-16)
PROC: 5A1955Z Respiratory Ventilation, Greater than 96 Consecutive Hours (ICD-10-PCS; principal; 2016-10-17)
PROC: 0DH63UZ Insertion of Feeding Device into Stomach, Percutaneous Approach (ICD-10-PCS; 2016-10-25)
PROC: 02HV33Z Insertion of Infusion Device into Superior Vena Cava, Percutaneous Approach (ICD-10-PCS; 2016-10-25)
DX: A41.9 Sepsis, unspecified organism (principal); J69.0 Pneumonitis due to inhalation of food and vomit; J96.21 Acute and chronic respiratory failure with hypoxia; J44.0 Chronic obstructive pulmonary disease with (acute) lower respiratory infection; J44.1 Chronic obstructive pulmonary disease with (acute) exacerbation; R53.2 Functional quadriplegia; R13.10 Dysphagia, unspecified; E44.1 Mild protein-calorie malnutrition; I47.1 Supraventricular tachycardia; K21.9 Gastro-esophageal reflux disease without esophagitis; F03.90 Unspecified dementia, unspecified severity, without behavioral disturbance, psychotic disturbance, mood disturbance, and anxiety; R73.9 Hyperglycemia, unspecified; I11.0 Hypertensive heart disease with heart failure; I50.9 Heart failure, unspecified; I25.119 Atherosclerotic heart disease of native coronary artery with unspecified angina pectoris; Z68.26 Body mass index [BMI] 26.0-26.9, adult; Z88.1 Allergy status to other antibiotic agents
CPT/HCPCS: 36415-UA; 36600-90; 70450-TC; 70460-TC; 71010-TC; 71020-TC; 71250-TC; 80048-TC; 80053-TC; 80156-TC; 80202-TC; 81001-TC; 82140-TC; 82565-TC; 82607-90; 82746-90; 82803-TC; 82948-90; 83036-90; 83605; 83735-TC; 83880-TC; 84100-TC; 84153-90; 84403-90; 84443-TC; 84484-TC; 84520-TC; 85007-TC; 85025-TC; 85027-TC; 85610-TC; 87070; 90779; 93005; 94002; 94003; 94640; 94660; 94667; 94668; 99201; C1751; J0692; J1100; J1644; J1940; J2001; J2060; J2250; J2405; J2543; J2920; J3370; J3475; J3480; J7030; J7040; J7613; Q9967; X3401; X6024; Z7502; Z7506; Z7610